=== PATIENT | female | born 1945 | race Caucasian/White ===

== ENCOUNTER 2020-05-26 15:11 | Outpatient (REF) | payer MEDICARE, SELFPAY ==
[2020-05-26 16:41] LABS: Hematocrit 41.1 % (37-47); Hemoglobin 13.6 g/dl (12.0-16.0); Mean Corpuscular HGB Conc 33.1 g/dl (31.0-35.0); Mean Corpuscular Hemoglobin 31.6 pg (27.0-33.0); Mean Corpuscular Volume 95.6 fL (80-98); Mean Platelet Volume 9.5 fL (9.4-12.3); Platelet Count 288 X10*3/uL (160-400); Red Cell Distribution Width 12.5 % (11.0-16.0); White Blood Count 7.5 X10*3/uL (4.8-10.8)
[2020-05-26 17:13] LABS: Alanine Aminotransferase 16 U/L (0-31); Albumin Level 4.2 g/dL (3.5-5.0); Alkaline Phosphatase 52 U/L (39-117); Anion Gap 12 (12-20); Aspartate Amino Transferase 27 U/L (5-31); Bilirubin Total 0.6 mg/dL (0.0-1.0); Blood Urea Nitrogen 16 mg/dL (9-16); Calcium 9.3 mg/dL (8.4-10.2); Carbon Dioxide 30 mmol/L (22-29); Chloride 98 mmol/L (96-108); Estimated Glomerular Filt Rate 48; Glucose Random 95 mg/dL (60-115); Potassium 4.1 mmol/l (3.3-5.1); Sodium 136 mmol/L (135-145); Total Protein 7.1 g/dL (6.5-8.0)
[2020-05-26 17:32] LABS: Thyroid Stimulating Hormone 3.22 mIU/mL (0.32-4.0)
== END 2020-05-26 15:12 | disposition home or self-care (01) ==
LOC: HO.HMGCLDS 15:11
PROVIDERS: PCP Internal Medicine; Visit Provider Internal Medicine
DX: E78.5 Hyperlipidemia, unspecified (principal); I10 Essential (primary) hypertension; J44.9 Chronic obstructive pulmonary disease, unspecified; M81.0 Age-related osteoporosis without current pathological fracture
CPT/HCPCS: 36415; 80053; 84443; 85027

== ENCOUNTER 2020-07-07 11:07 | Outpatient (REF) | payer MEDICARE, SELFPAY ==
--- NOTE | 2020-07-07 | XR_ITS ---
EXAMINATION: XR CHEST CLINICAL INFORMATION: COPD, cough, possible pneumonia COMPARISON: Chest radiographs 03/12/2019 TECHNIQUE: 2 views of the chest were obtained. FINDINGS: There is no airspace consolidation or focal groundglass opacity. The costophrenic sulci are clear. There is no effusion. The heart is normal in size. There is unipolar pacemaker similar to prior study 2019. The hilar and mediastinal contours and bony structures are stable. XR/XR chest 2V IMPRESSION: Unremarkable examination.
== END 2020-07-07 11:08 | disposition home or self-care (01) ==
LOC: HO.HMGCX 11:07
PROVIDERS: PCP Internal Medicine; Visit Provider Pediatrics
DX: J44.9 Chronic obstructive pulmonary disease, unspecified (principal); R05 Cough
CPT/HCPCS: 71046

== ENCOUNTER 2020-11-19 | Outpatient (REF) | payer MEDICARE, SELFPAY | END 2020-11-19 00:01 | disposition home or self-care (01) | LOC: HO.LNP | PROVIDERS: Visit Provider Hospitalist | DX: R30.0 Dysuria (principal) | CPT/HCPCS: 87086 ==

== ENCOUNTER 2020-12-30 06:56 | Outpatient (REF) | payer MEDICARE, SELFPAY ==
[2020-12-30 12:17] LABS: Alanine Aminotransferase 19 U/L (0-31); Alkaline Phosphatase 43 U/L (39-117); Anion Gap 13 (12-20); Aspartate Amino Transferase 30 U/L (5-31); Bilirubin Total 0.5 mg/dL (0.0-1.0); Blood Urea Nitrogen 11 mg/dL (9-16); Carbon Dioxide 26 mmol/L (22-29); Chloride 105 mmol/L (96-108); Cholesterol 181 mg/dL; Estimated Glomerular Filt Rate > 60; Glucose Fasting 83 mg/dL (60-99); HDL Cholesterol 69 mg/dL; LDL Cholesterol Calculated 97 mg/dl; Potassium 3.7 mmol/L (3.3-5.1); Sodium 140 mmol/L (135-145); Total Protein 6.8 g/dL (6.5-8.0); Triglycerides 76 mg/dL
== END 2020-12-30 06:57 | disposition home or self-care (01) ==
LOC: HO.HMGCLDS 06:56
PROVIDERS: PCP Internal Medicine; Visit Provider Internal Medicine
DX: I11.0 Hypertensive heart disease with heart failure (principal); I50.9 Heart failure, unspecified; E78.5 Hyperlipidemia, unspecified
CPT/HCPCS: 36415; 80053; 80061

== ENCOUNTER 2021-01-06 11:07 | Outpatient (REF) | payer MEDICARE, SELFPAY | END 2021-01-06 11:08 | disposition home or self-care (01) | LOC: HO.LAB 11:07 | PROVIDERS: Visit Provider Nurse Practitioner Family | DX: N39.0 Urinary tract infection, site not specified (principal); R31.9 Hematuria, unspecified | CPT/HCPCS: 87086; 87088; 87186 ==

== ENCOUNTER 2021-01-19 12:32 | Outpatient (REF) | payer MEDICARE, SELFPAY ==
[2021-01-19 14:46] LABS: Vitamin D 25-OH Total 75.9 ng/mL (>30)
== END 2021-01-19 12:33 | disposition home or self-care (01) ==
LOC: HO.HMGCLDS 12:32
PROVIDERS: PCP Internal Medicine; Visit Provider Internal Medicine
DX: M81.0 Age-related osteoporosis without current pathological fracture (principal)
CPT/HCPCS: 36415; 82306

== ENCOUNTER 2021-07-29 06:31 | Outpatient (REF) | payer MEDICARE, SELFPAY ==
[2021-07-29 11:25] LABS: Hematocrit 38.8 % (37.0-47.0); Hemoglobin 12.8 g/dl (12.0-16.0); Mean Corpuscular Hemoglobin 32.1 pg (27.0-33.0); Mean Corpuscular Volume 97.2 fL (80.0-98.0); Platelet Count 249 X10*3/uL (160-400); Red Blood Count 3.99 X10*6/uL (4.20-5.50); Red Cell Distribution Width 13.1 % (11.0-16.0); White Blood Count 5.9 X10*3/uL (4.8-10.8)
[2021-07-29 12:04] LABS: Vitamin D 25-OH Total 61.9 ng/mL (>30)
[2021-07-29 12:09] LABS: Alanine Aminotransferase 18 U/L (0-31); Albumin Level 3.7 g/dL (3.5-5.0); Alkaline Phosphatase 50 U/L (39-117); Anion Gap 11 (12-20); Aspartate Amino Transferase 23 U/L (5-31); Bilirubin Total 0.5 mg/dL (0.0-1.0); Blood Urea Nitrogen 19 mg/dL (9-16); Calcium 8.9 mg/dL (8.4-10.2); Carbon Dioxide 27 mmol/L (22-29); Chloride 105 mmol/L (96-108); Cholesterol 188 mg/dL; Estimated Glomerular Filt Rate 44; Glucose Fasting 86 mg/dL (60-99); HDL Cholesterol 73 mg/dL; LDL Cholesterol Calculated 103 mg/dl; Potassium 4.1 mmol/L (3.3-5.1); Sodium 139 mmol/L (135-145); Total Protein 6.6 g/dL (6.5-8.0); Triglycerides 60 mg/dL
== END 2021-07-29 06:32 | disposition home or self-care (01) ==
LOC: HO.HMGCLDS 06:31
PROVIDERS: PCP Internal Medicine; Visit Provider Internal Medicine
DX: E78.5 Hyperlipidemia, unspecified (principal); I11.0 Hypertensive heart disease with heart failure; I50.9 Heart failure, unspecified; J44.9 Chronic obstructive pulmonary disease, unspecified; M81.0 Age-related osteoporosis without current pathological fracture
CPT/HCPCS: 36415; 80053; 80061; 82306; 85027

== ENCOUNTER 2021-08-02 06:45 | Outpatient (REF) | payer MEDICARE, SELFPAY ==
[2021-08-02 12:08] LABS: Appearance Urine HAZY; Color Urine YELLOW; Glucose Urine UA NEG (NEG); Leukocyte Esterase Urine 3+ (NEG); Nitrite Urine NEG (NEG); UACC Culture Trigger YES; Urine Blood NEG (NEG); Urine Ketones NEG (NEG); Urine Protein NEG (NEG-TRACE)
[2021-08-02 12:29] LABS: WBC Urine 30-49 /HPF (0-4)
[2021-08-02 12:30] LABS: Bacteria Urine 1+ /LPF; Mucus Urine 2+ /LPF; RBC Urine 0 /HPF (0); Squamous Epithelial Cell Urine 1+ /LPF
== END 2021-08-02 06:46 | disposition home or self-care (01) ==
LOC: HO.HMGCLNP 06:45
PROVIDERS: PCP Internal Medicine; Visit Provider Internal Medicine
DX: M81.0 Age-related osteoporosis without current pathological fracture (principal); J44.9 Chronic obstructive pulmonary disease, unspecified; I11.0 Hypertensive heart disease with heart failure; I50.9 Heart failure, unspecified; E78.5 Hyperlipidemia, unspecified
CPT/HCPCS: 81001; 81003; 87086

== ENCOUNTER 2021-08-19 13:26 | Outpatient (REF) | payer MEDICARE, SELFPAY ==
[2021-08-19 16:17] LABS: Anion Gap 12 (12-20); Blood Urea Nitrogen 15 mg/dL (9-16); Calcium 9.2 mg/dL (8.4-10.2); Carbon Dioxide 27 mmol/L (22-29); Chloride 101 mmol/L (96-108); Estimated Glomerular Filt Rate 60; Glucose Random 94 mg/dL (60-115); Potassium 3.7 mmol/L (3.3-5.1); Sodium 136 mmol/L (135-145)
== END 2021-08-19 13:27 | disposition home or self-care (01) ==
LOC: HO.HMGCLDS 13:26
PROVIDERS: PCP Internal Medicine; Visit Provider Internal Medicine
DX: I50.9 Heart failure, unspecified (principal)
CPT/HCPCS: 36415; 80048

== ENCOUNTER 2021-11-10 11:38 | Outpatient (REF) | payer MEDICARE, SELFPAY ==
[2021-11-10 13:58] LABS: Appearance Urine CLEAR; Color Urine YELLOW; Glucose Urine UA NEG (NEG); Leukocyte Esterase Urine 3+ (NEG); Nitrite Urine NEG (NEG); PH 7.5 (5.0-8.0); UACC Culture Trigger YES; Urine Blood NEG (NEG); Urine Ketones NEG (NEG); Urine Protein NEG (NEG-TRACE)
[2021-11-10 14:19] LABS: Bacteria Urine TRACE /LPF; RBC Urine 0-2 /HPF (0); Renal Epithelial Cells Urine 1+ /LPF; Squamous Epithelial Cell Urine 1+ /LPF
== END 2021-11-10 11:39 | disposition home or self-care (01) ==
LOC: HO.HMGCLNP 11:38
PROVIDERS: PCP Internal Medicine; Visit Provider Internal Medicine
DX: I10 Essential (primary) hypertension (principal); M81.0 Age-related osteoporosis without current pathological fracture; J44.9 Chronic obstructive pulmonary disease, unspecified; I50.9 Heart failure, unspecified; E78.5 Hyperlipidemia, unspecified
CPT/HCPCS: 81001; 87086

== ENCOUNTER 2021-11-12 09:49 | Outpatient (REF) | payer MEDICARE, SELFPAY ==
[2021-11-12 12:16] LABS: Anion Gap 9 (12-20); Blood Urea Nitrogen 11 mg/dL (9-16); Calcium 9.3 mg/dL (8.4-10.2); Carbon Dioxide 28 mmol/L (22-29); Chloride 98 mmol/L (96-108); Estimated Glomerular Filt Rate > 60; Glucose Random 81 mg/dL (60-115); Sodium 131 mmol/L (135-145)
== END 2021-11-12 09:50 | disposition home or self-care (01) ==
LOC: HO.HMGCLDS 09:49
PROVIDERS: Visit Provider Internal Medicine
DX: I50.9 Heart failure, unspecified (principal)
CPT/HCPCS: 36415; 80048

== ENCOUNTER 2021-12-02 10:29 | Outpatient (REF) | payer MEDICARE, SELFPAY ==
[2021-12-02 11:57] LABS: Anion Gap 14 (12-20); Blood Urea Nitrogen 16 mg/dL (9-16); Calcium 9.6 mg/dL (8.4-10.2); Carbon Dioxide 26 mmol/L (22-29); Chloride 101 mmol/L (96-108); Estimated Glomerular Filt Rate > 60; Glucose Random 98 mg/dL (60-115); Potassium 4.1 mmol/L (3.3-5.1); Sodium 137 mmol/L (135-145)
[2021-12-02 14:01] LABS: Appearance Urine CLEAR; Color Urine YELLOW; Glucose Urine UA NEG (NEG); Leukocyte Esterase Urine 2+ (NEG); Nitrite Urine NEG (NEG); Specific Gravity - Urine 1.015 (1.005-1.025); UACC Culture Trigger YES; Urine Blood TRACE (NEG); Urine Ketones NEG (NEG); Urine Protein TRACE MG/DL (NEG-TRACE)
[2021-12-02 15:17] LABS: Squamous Epithelial Cell Urine 2+ /LPF
[2021-12-02 15:18] LABS: Bacteria Urine 1+ /LPF
[2021-12-02 15:19] LABS: RBC Urine 0 /HPF (0)
== END 2021-12-02 10:30 | disposition home or self-care (01) ==
LOC: HO.HMGCLDS 10:29
PROVIDERS: PCP Internal Medicine; Visit Provider Internal Medicine
DX: E87.1 Hypo-osmolality and hyponatremia (principal)
CPT/HCPCS: 36415; 80048; 81001; 81003; 87086

== ENCOUNTER 2022-01-18 08:29 | Outpatient (REF) | payer MEDICARE, SELFPAY ==
[2022-01-18 11:40] LABS: Appearance Urine HAZY; Color Urine YELLOW; Glucose Urine UA NEG (NEG); Leukocyte Esterase Urine 3+ (NEG); Nitrite Urine NEG (NEG); PH 6.5 (5.0-8.0); Specific Gravity - Urine 1.015 (1.005-1.025); UACC Culture Trigger YES; Urine Blood NEG (NEG); Urine Ketones NEG (NEG); Urine Protein NEG (NEG-TRACE)
[2022-01-18 12:06] LABS: Hematocrit 38.6 % (37.0-47.0); Hemoglobin 12.3 g/dl (12.0-16.0); Mean Corpuscular HGB Conc 31.9 g/dl (31.0-35.0); Mean Corpuscular Hemoglobin 31.1 pg (27.0-33.0); Mean Corpuscular Volume 97.5 fL (80.0-98.0); Platelet Count 227 X10*3/uL (160-400); Red Blood Count 3.96 X10*6/uL (4.20-5.50); Red Cell Distribution Width 13.5 % (11.0-16.0); White Blood Count 6.4 X10*3/uL (4.8-10.8)
[2022-01-18 12:19] LABS: Alanine Aminotransferase 15 U/L (0-31); Alkaline Phosphatase 49 U/L (39-117); Anion Gap 10 (12-20); Aspartate Amino Transferase 22 U/L (5-31); Bilirubin Total 0.7 mg/dL (0.0-1.0); Blood Urea Nitrogen 16 mg/dL (9-16); Calcium 9.1 mg/dL (8.4-10.2); Carbon Dioxide 27 mmol/L (22-29); Chloride 106 mmol/L (96-108); Cholesterol 187 mg/dL; Estimated Glomerular Filt Rate 57; Glucose Fasting 93 mg/dL (60-99); HDL Cholesterol 68 mg/dL; LDL Cholesterol Calculated 105 mg/dl; Potassium 3.7 mmol/L (3.3-5.1); Sodium 139 mmol/L (135-145); Total Protein 6.8 g/dL (6.5-8.0); Triglycerides 73 mg/dL
[2022-01-18 12:21] LABS: Bacteria Urine 1+ /LPF; RBC Urine 0 /HPF (0); Squamous Epithelial Cell Urine 1+ /LPF
[2022-01-18 12:26] LABS: TSH reflex Free T4 3.86 uIU/mL (0.32-4.0)
== END 2022-01-18 08:30 | disposition home or self-care (01) ==
LOC: HO.HMGCLDS 08:29
PROVIDERS: PCP Internal Medicine; Visit Provider Internal Medicine
DX: E78.5 Hyperlipidemia, unspecified (principal); I11.0 Hypertensive heart disease with heart failure; I50.9 Heart failure, unspecified
CPT/HCPCS: 36415; 80053; 80061; 81001; 84443; 85027; 87086

== ENCOUNTER 2022-05-24 08:37 | Outpatient (REF) | payer MEDICARE, SELFPAY ==
[2022-05-24 11:42] LABS: Appearance Urine Clear; Color Urine Yellow; Glucose Urine UA Negative (Negative); Leukocyte Esterase Urine Small (1+) (Negative); Nitrite Urine Negative (Negative); UMIC TRIGGER UACC YES; Urine Blood Negative (Negative); Urine Ketones Negative (Negative); Urine Protein Negative (Neg-Trace)
[2022-05-24 12:02] LABS: Bacteria Urine None Seen (None Seen); Hyaline Casts Urine 0-2 /LPF (0-2); RBC Urine 0-2 /HPF (0-2); Squamous Epithelial Cell Urine 0-2 /HPF (0-2); UACC Culture Trigger YES; WBC Urine 0-5 /HPF (0-5)
[2022-05-24 12:21] LABS: Anion Gap 15 (12-20); Blood Urea Nitrogen 17 mg/dL (9-16); Calcium 9.1 mg/dL (8.4-10.2); Carbon Dioxide 26 mmol/L (22-29); Chloride 103 mmol/L (96-108); Estimated Glomerular Filt Rate > 60; Glucose Random 84 mg/dL (60-115); Potassium 3.8 mmol/L (3.3-5.1); Sodium 140 mmol/L (135-145)
== END 2022-05-24 08:38 | disposition home or self-care (01) ==
LOC: HO.HMGCLDS 08:37
PROVIDERS: PCP Internal Medicine; Visit Provider Internal Medicine
DX: I11.0 Hypertensive heart disease with heart failure (principal); I50.9 Heart failure, unspecified
CPT/HCPCS: 36415; 80048; 81001; 87086

== ENCOUNTER 2022-07-16 10:58 | Inpatient (IN) | payer MEDICARE, SELFPAY ==
[2022-07-16] VITALS (7 sets, daily range): BP systolic 118–141; BP diastolic 73–91; PULSE 93–109; RESP 16–30; TEMP 36.4–37.7; O2SAT 94–98; BMI 28.3
--- NOTE | 2022-07-16 11:06 | ECG_ITS ---
Test Reason : SOB Blood Pressure : / mmHG Vent. Rate : 106 BPM Atrial Rate : 106 BPM P-R Int : 240 ms QRS Dur : 142 ms QT Int : 378 ms P-R-T Axes : 000 -35 -21 degrees QTc Int : 502 ms Sinus tachycardia with 1st degree A-V block Left axis deviation Right bundle branch block T wave abnormality, consider lateral ischemia Abnormal ECG No previous ECGs available Referred By: Generic ED Physician Electronically Signed By:Sunil Coto
--- NOTE | 2022-07-16 11:16 | ED.SOB ---
HPI - SOB/Dyspnea General Chief Complaint: Dyspnea Stated Complaint: DIFF BREATHING Time Seen by Provider: 07/16/22 11:11 Source: patient Mode of arrival: ambulatory Limitations: no limitations History of Present Illness HPI Narrative: This is a 77-year-old female past medical history significant for CHF, COPD, hypertension, hyperlipidemia presenting to the emergency department with progressively worsening shortness of breath , productive cough for over a month, particularly bad over the past few days. Patient tells me she wears about 1-2 L of oxygen at home at baseline however has been having to increase her oxygen at home due to shortness of breath. Tells me shortness of breath is worse with exertion better at rest. Patient has been to urgent care multiple times and has been prescribed multiple rounds of steroids, and antibiotics including azithromycin and amoxicillin. Patient tells me she has noted little to no relief with taking these antibiotics. no known sick contacts. Patient denies fevers, chills, chest pain, nausea, vomiting, abdominal pain, headache, vision changes, dizziness, weakness. Related Data Home Medications Medication Instructions Recorded Confirmed cetirizine 10 mg tablet 1 tab PO DAILY 07/16/22 Previous Rx's Medication Instructions Recorded albuterol sulfate 90 mcg/actuation 2 puff inhalation QID #8.5 grams 01/19/21 aerosol inhaler furosemide 40 mg tablet 60 mg PO DAILY #135 tabs 01/07/22 fluticasone 250 mcg-salmeterol 50 1 ea PO Q12H #180 ea 05/26/22 mcg/dose blistr powdr for inhalation lisinopril 40 mg tablet 40 mg PO DAILY #90 tabs 05/26/22 pravastatin 20 mg tablet 20 mg PO DAILY #90 tabs 05/26/22 ipratropium 0.5 mg-albuterol 3 mg 1.5 ml inhalation Q6H #180 mL 06/22/22 (2.5 mg base)/3 mL nebulization soln Allergies Allergy/AdvReac Type Severity Reaction Status Date / Time gemifloxacin Allergy Unknown Rash Verified 07/15/22 13:01 montelukast [Singulair] Allergy Unknown mood swings Verified 07/15/22 13:01 prednisone Allergy Unknown sob Verified 07/15/22 13:01 Review of Systems Review of Systems: Constitutional : No Weight loss, No Fever, No Chills, No Fatigue, No Malaise ENT/Mouth : No sore throat, No Rhinorrhea Eyes: No Eye Pain, No Swelling, No Redness Cardiovascular : No Chest Pain, + SOB, No Dyspnea on Exertion, No Orthopnea, No Edema, No Palpitations Respiratory : No Cough, No Sputum, No Wheezing Gastrointestinal : No Nausea, No Vomiting, No Diarrhea, No Constipation, No abdominal Pain, No Hematochezia, No Melena Genitourinary : No Dysuria, No Urinary Frequency, No Hematuria, Musculoskeletal : No joint pain, No Myalgias, No Joint Swelling Skin : No Skin Lesions, No rash Neuro : No Weakness, No Numbness, No Dizziness, No Headache Psych : No Anxiety/Panic, No Depression Heme/Lymph: No Bruising, No Bleeding,No Lymphadenopathy Endocrine : No Polyuria, No Polydipsia All other systems reviewed and are negative Yes all other systems are reviewed and are negative [facility] Past Medical History Attestation statement: The following information was validated with the patient. Source: old records reviewed and nursing notes reviewed Medical History CHF (congestive heart failure) COPD (chronic obstructive pulmonary disease) HTN (hypertension) Hyperlipemia Hyponatremia Meniere disease Osteoporosis Sleep apnea SSS (sick sinus syndrome) Family History Family History Father Lung cancer Mother COPD (chronic obstructive pulmonary disease) Social History Social History Housing: House Alcohol intake: never Patient Tobacco Use Status: Former Tobacco user e-Cigarette/Vaping Use: Never Used Second Hand Smoke Exposure: Yes Advance Directives: No Advance Directives Information Provided: Yes service: No Current occupational status: retired Cognitive needs: No Hearing needs: Yes Vision needs: Yes Physical Exam Vital Signs: Vital Signs: Last Vital Signs Temp 99.8 F 07/16/22 13:04 Pulse 109 H 07/16/22 10:59 Resp 18 07/16/22 10:59 BP 141/81 H 07/16/22 10:59 Pulse Ox 94 07/16/22 10:59 O2 Del Method 07/16/22 10:59 Oxygen Flow Rate 3 07/16/22 10:59 BMI result Body Mass Index 28.3 vss Appearance: Alert.? Oriented X3.? Moderate acute distress.? Head: Normocephalic, atraumatic, no step-offs or deformities Eyes: Pupils equal, round and reactive to light.? ENT: Pharynx normal.? Neck: Normal inspection.? Neck supple.? CVS: Normal heart rate and rhythm.? Pulses normal.? Respiratory: Moderate respiratory distress.? Breath sounds diminished bilaterally with expiratory wheezing and rales in bilateral lower lobes..? Abdomen: Soft and nontender. Skin: Skin warm and dry.? Normal skin color.? Normal skin turgor.? Extremities: No lower extremity edema.? No calf ttp. 5/5 strength to bilateral upper and lower extremities Neuro: Oriented X 3.? No motor deficit.? No sensory deficit. CN 2-12 intact Course Course Course Narrative: this patient was evaluated and seen by my attending as well. Reevaluation(s) Reevaluation #1: patient's CBC appears to be around patient's baseline however noted to have a neutrophil predominance. Chemistry with a slightly low sodium 132, no symptoms of hyponatremia on exam. Patient is noted to have a lactic acidosis. Patient is also noted to have a strikingly elevated troponin 3600. Her EKG is not showing any acute signs of ischemia. Patient does not report any chest pain her main complaint is shortness of breath. Patient is also noted to have a BNP of 2908, patient with soft pressure will give 40 of IV Lasix and then repeat another 40 at a later time when patient's pressure is appropriate. will obtain CTA to rule out PE. Due to strikingly elevated troponin will obtain viral panel to ensure that this is not a myocarditis. TT to Dr. Coto Time: 12:42 Reevaluation #2: Patient noted to be positive for influenza. Not candidate for Tamiflu as symptoms have been prolonged for greater than 48 hours. CTA with no PE. Patient will be admitted to the hospital for further intervention and treatment. Time: 13:45 Medications Administered Discontinued Medications Generic Name Dose Route Start Last Admin Trade Name Freq PRN Reason Stop Dose Admin Furosemide 40 mg 07/16/22 12:23 07/16/22 13:11 Furosemide 40 Mg/4 Ml Vial IVPUSH 07/16/22 12:24 40 mg ONCE ONE Administration Protocol Heparin Sodium (Porcine) 4,000 unit 07/16/22 12:50 07/16/22 13:15 Heparin Sodium,Porcine 5,000 Unit/Ml Vial 60 unit/kg (4000 unit) 07/16/22 12:51 4,000 unit IVPUSH Administration ONCE ONE Magnesium Sulfate 2 gm in 50 mls @ 25 mls/hr 07/16/22 11:18 07/16/22 11:48 Magnesium Sulfate/H2o IV 07/16/22 13:17 25 mls/hr ONCE ONE Administration Ceftriaxone Sodium 1 gm/ 50 mls @ 100 mls/hr 07/16/22 12:17 07/16/22 13:17 Sodium Chloride IV 07/16/22 12:46 100 mls/hr ONCE ONE Infusion Iohexol 100 ml 07/16/22 13:12 07/16/22 13:12 Iohexol 350 Mg/Ml 100 Ml Infus..Btl IV 07/16/22 13:13 65 ml ONCE ONE Administration Methylprednisolone Sodium Succinate 125 mg 07/16/22 11:18 07/16/22 11:48 Methylprednisolone Sod Succ 125 Mg/2 Ml Vial IVPUSH 07/16/22 11:19 125 mg ONCE ONE Administration Medical Decision Making Medical Decision Making [facility] Narrative: 1115 77-year-old female presents with complaints of shortness of breath for a little bit over a month worsening over the past few days. History of COPD on home oxygen however increased oxygen demands. Physical examination with patient in moderate respiratory distress. Moderate respiratory distress.? Breath sounds diminished bilaterally with expiratory wheezing and rales in bilateral lower lobes. Concerns for possible CHF, COPD. No chest pain therefore low suspicion for ACS. Plan at this time is to obtain basic labs, blood cultures, lactic, flu/ COVID / RSV, D-dimer. Will give magnesium and Solu-Medrol as patient does have significant wheezing and there are diminished breath sounds bilaterally. Lab Data Result Diagrams: 07/16/22 11:58 07/16/22 11:40 Labs: Lab Results 07/16/22 07/16/22 07/16/22 Range/Units 11:40 11:40 11:40 WBC (4.8-10.8) X10*3/uL RBC (4.20-5.50) X10*6/uL Hgb (12.0-16.0) g/dl Hct (37.0-47.0) % MCV (80.0-98.0) fL MCH (27.0-33.0) pg MCHC (31.0-35.0) g/dl RDW (11.0-16.0) % Plt Count (160-400) X10*3/uL MPV (9.4-12.3) fL Immature Gran % (Auto) (0.0-0.4) % Neut % (Auto) (45-73) % Lymph % (Auto) (20-40) % [place] % (Auto) (2-11) % Eos % (Auto) (0-4) % Baso % (Auto) (0-2) % Lymph # (Auto) (1.2-4.9) X10*3/uL [place] # (Auto) (0.1-1.2) X10*3/uL Eos # (Auto) (0.0-0.4) X10*3/uL Baso # (Auto) (0.0-0.2) X10*3/uL Abs Immat Gran (auto) (0.00-0.03) X10*3/uL Absolute Neuts (auto) (2.0-8.3) x10*3/uL Absolute Nucleated RBC (0.0-0.012) X10*3/uL Nucleated RBC % (auto) (0.0-0.2) /100WBC Smear Tech's Comments PT (10.0-13.1) SEC INR (0.9-1.1) APTT (26.0-36.4) SEC D-Dimer High Sensitivty NG/ML VBG pH (7.32-7.43) VBG pCO2 mmHg VBG pO2 mmHg VBG HCO3 (22-26) mmol/L VBG O2 Saturation % VBG Base Excess mmol/L Sodium 132 L (135-145) mmol/L Potassium 4.1 (3.3-5.1) mmol/L Chloride 99 (96-108) mmol/L Carbon Dioxide 21 L (22-29) mmol/L Anion Gap 16 (12-20) BUN 16 (9-16) mg/dL Creatinine 0.96 (0.5-1.4) mg/dL Estim Creat Clear Calc 40.9 Estimated GFR 56 Random Glucose 143 H (60-115) mg/dL Lactic Acid (0.5-2.0) mmol/L Calcium 9.0 (8.4-10.2) mg/dL Total Bilirubin 0.7 (0.0-1.0) mg/dL AST 57 H (5-31) U/L ALT 22 (0-31) U/L Alkaline Phosphatase 47 (39-117) U/L Total Creatine Kinase 979 H (26-140) U/L Troponin I High Sens > 3600.0 H* (<3.5-17.0) ng/L B-Natriuretic Peptide (<100) pg/mL Total Protein 6.9 (6.5-8.0) g/dL Albumin 4.2 (3.5-5.0) g/dL Influenza Type A (PCR) POSITIVE A (Negative) Influenza Type B (PCR) NEGATIVE (Negative) RSV RNA Qual (PCR) NEGATIVE (Negative) SARS-CoV-2 RNA (RT-PCR) NEGATIVE (Negative) 07/16/22 07/16/22 07/16/22 Range/Units 11:40 11:40 11:40 WBC (4.8-10.8) X10*3/uL RBC (4.20-5.50) X10*6/uL Hgb (12.0-16.0) g/dl Hct (37.0-47.0) % MCV (80.0-98.0) fL MCH (27.0-33.0) pg MCHC (31.0-35.0) g/dl RDW (11.0-16.0) % Plt Count (160-400) X10*3/uL MPV (9.4-12.3) fL Immature Gran % (Auto) (0.0-0.4) % Neut % (Auto) (45-73) % Lymph % (Auto) (20-40) % [place] % (Auto) (2-11) % Eos % (Auto) (0-4) % Baso % (Auto) (0-2) % Lymph # (Auto) (1.2-4.9) X10*3/uL [place] # (Auto) (0.1-1.2) X10*3/uL Eos # (Auto) (0.0-0.4) X10*3/uL Baso # (Auto) (0.0-0.2) X10*3/uL Abs Immat Gran (auto) (0.00-0.03) X10*3/uL Absolute Neuts (auto) (2.0-8.3) x10*3/uL Absolute Nucleated RBC (0.0-0.012) X10*3/uL Nucleated RBC % (auto) (0.0-0.2) /100WBC Smear Tech's Comments PT (10.0-13.1) SEC INR (0.9-1.1) APTT (26.0-36.4) SEC D-Dimer High Sensitivty 320 NG/ML VBG pH (7.32-7.43) VBG pCO2 mmHg VBG pO2 mmHg VBG HCO3 (22-26) mmol/L VBG O2 Saturation % VBG Base Excess mmol/L Sodium (135-145) mmol/L Potassium (3.3-5.1) mmol/L Chloride (96-108) mmol/L Carbon Dioxide (22-29) mmol/L Anion Gap (12-20) BUN (9-16) mg/dL Creatinine (0.5-1.4) mg/dL Estim Creat Clear Calc Estimated GFR Random Glucose (60-115) mg/dL Lactic Acid 2.6 H* (0.5-2.0) mmol/L Calcium (8.4-10.2) mg/dL Total Bilirubin (0.0-1.0) mg/dL AST (5-31) U/L ALT (0-31) U/L Alkaline Phosphatase (39-117) U/L Total Creatine Kinase (26-140) U/L Troponin I High Sens (<3.5-17.0) ng/L B-Natriuretic Peptide 2908 H (<100) pg/mL Total Protein (6.5-8.0) g/dL Albumin (3.5-5.0) g/dL Influenza Type A (PCR) (Negative) Influenza Type B (PCR) (Negative) RSV RNA Qual (PCR) (Negative) SARS-CoV-2 RNA (RT-PCR) (Negative) 07/16/22 07/16/22 07/16/22 Range/Units 11:40 11:58 12:53 WBC 7.7 (4.8-10.8) X10*3/uL RBC 3.97 L (4.20-5.50) X10*6/uL Hgb 12.9 (12.0-16.0) g/dl Hct 37.7 (37.0-47.0) % MCV 95.0 (80.0-98.0) fL MCH 32.5 (27.0-33.0) pg MCHC 34.2 (31.0-35.0) g/dl RDW 13.4 (11.0-16.0) % Plt Count 201 (160-400) X10*3/uL MPV 9.5 (9.4-12.3) fL Immature Gran % (Auto) 0.1 (0.0-0.4) % Neut % (Auto) 92.5 H (45-73) % Lymph % (Auto) 4.7 L (20-40) % [place] % (Auto) 2.5 (2-11) % Eos % (Auto) 0.1 (0-4) % Baso % (Auto) 0.1 (0-2) % Lymph # (Auto) 0.4 L (1.2-4.9) X10*3/uL [place] # (Auto) 0.2 (0.1-1.2) X10*3/uL Eos # (Auto) 0.0 (0.0-0.4) X10*3/uL Baso # (Auto) 0.0 (0.0-0.2) X10*3/uL Abs Immat Gran (auto) 0.01 (0.00-0.03) X10*3/uL Absolute Neuts (auto) 7.2 (2.0-8.3) x10*3/uL Absolute Nucleated RBC 0.000 (0.0-0.012) X10*3/uL Nucleated RBC % (auto) 0.0 (0.0-0.2) /100WBC Smear Tech's Comments VERIFIED PT 11.3 (10.0-13.1) SEC INR 1.0 (0.9-1.1) APTT 30.8 (26.0-36.4) SEC D-Dimer High Sensitivty NG/ML VBG pH 7.43 (7.32-7.43) VBG pCO2 30 mmHg VBG pO2 46 mmHg VBG HCO3 20 L (22-26) mmol/L VBG O2 Saturation 74.0 % VBG Base Excess -2.1 mmol/L Sodium (135-145) mmol/L Potassium (3.3-5.1) mmol/L Chloride (96-108) mmol/L Carbon Dioxide (22-29) mmol/L Anion Gap (12-20) BUN (9-16) mg/dL Creatinine (0.5-1.4) mg/dL Estim Creat Clear Calc Estimated GFR Random Glucose (60-115) mg/dL Lactic Acid (0.5-2.0) mmol/L Calcium (8.4-10.2) mg/dL Total Bilirubin (0.0-1.0) mg/dL AST (5-31) U/L ALT (0-31) U/L Alkaline Phosphatase (39-117) U/L Total Creatine Kinase (26-140) U/L Troponin I High Sens (<3.5-17.0) ng/L B-Natriuretic Peptide (<100) pg/mL Total Protein (6.5-8.0) g/dL Albumin (3.5-5.0) g/dL Influenza Type A (PCR) (Negative) Influenza Type B (PCR) (Negative) RSV RNA Qual (PCR) (Negative) SARS-CoV-2 RNA (RT-PCR) (Negative) Critical Care Time Critical Care Time Critical Care Time: Yes Total Critical Care Time: 45 Attestation: I attest to this time spent taking care of the patient, obtaining history, physical, reviewing labs, imaging, speaking to my attending, speaking to specialist. Discharge Plan Discharge Clinical Impression: CHF (congestive heart failure), Pneumonia, Elevated troponin, Rhabdomyolysis, Influenza A Patient Disposition: Admitted As Inpatient
--- NOTE | 2022-07-16 11:56 | PC.NURSE ---
#20 IV placed in right AC without any problem. 2nd attempt
[2022-07-16 11:58] LABS: D Dimer High Sensitivity 320 NG/ML
[2022-07-16 12:04] LABS: Basophils Percent Auto 0.1 % (0-2); Eosinophils Percent Auto 0.1 % (0-4); Hematocrit 37.7 % (37.0-47.0); Hemoglobin 12.9 g/dl (12.0-16.0); Imm Gran Abs Auto 0.01 X10*3/uL (0.00-0.03); Imm Gran Pct Auto 0.1 % (0.0-0.4); Lymphocytes Absolute Auto 0.4 X10*3/uL (1.2-4.9); Lymphocytes Percent Auto 4.7 % (20-40); MANUAL DIFF FLAG SCAN; Mean Corpuscular HGB Conc 34.2 g/dl (31.0-35.0); Mean Corpuscular Hemoglobin 32.5 pg (27.0-33.0); Mean Platelet Volume 9.5 fL (9.4-12.3); Monocytes Absolute Auto 0.2 X10*3/uL (0.1-1.2); Monocytes Percent Auto 2.5 % (2-11); Neutrophils Absolute Auto 7.2 x10*3/uL (2.0-8.3); Neutrophils Percent Auto 92.5 % (45-73); Platelet Count 201 X10*3/uL (160-400); Red Blood Count 3.97 X10*6/uL (4.20-5.50); Red Cell Distribution Width 13.4 % (11.0-16.0); SCAN SMEAR FLAG 1; White Blood Count 7.7 X10*3/uL (4.8-10.8)
[2022-07-16 12:11] LABS: Lactic Acid 2.6 mmol/L (0.5-2.0)
[2022-07-16 12:16] LABS: B Type Natriuretic Peptide 2908 pg/mL (<100)
[2022-07-16 12:19] LABS: Alanine Aminotransferase 22 U/L (0-31); Albumin Level 4.2 g/dL (3.5-5.0); Alkaline Phosphatase 47 U/L (39-117); Anion Gap 16 (12-20); Aspartate Amino Transferase 57 U/L (5-31); Bilirubin Total 0.7 mg/dL (0.0-1.0); Blood Urea Nitrogen 16 mg/dL (9-16); Carbon Dioxide 21 mmol/L (22-29); Chloride 99 mmol/L (96-108); Creatinine Clr Calc Pharmacy 40.9; Estimated Glomerular Filt Rate 56; Glucose Random 143 mg/dL (60-115); Potassium 4.1 mmol/L (3.3-5.1); Sodium 132 mmol/L (135-145); Total Protein 6.9 g/dL (6.5-8.0)
[2022-07-16 12:22] LABS: SLIDE REVIEW VERIFIED
[2022-07-16 12:23] LABS: Troponin-I High Sensitivity > 3600.0 ng/L (<3.5-17.0)
[2022-07-16 12:28] LABS: Influenza A PCR POSITIVE (Negative); Influenza B PCR NEGATIVE (Negative); Resp Syncy Virus RNA Qual PCR NEGATIVE (Negative); SARS COV2 PCR INHOUSE NEGATIVE (Negative)
[2022-07-16 12:51] LABS: Prothrombin Time 11.3 SEC (10.0-13.1)
[2022-07-16 13:36] LABS: Partial Thromboplastin Time 30.8 SEC (26.0-36.4)
--- NOTE | 2022-07-16 14:08 | PHA.MEDREC ---
Pharmacy Consult ? Medication Reconciliation Pharmacy has completed the medication reconciliation. Patient had a medication list that I reviewed with her and used to help do her medication reconciliation. She just started a zpak yesterday and took the first day of single tablet dosing today. She has 3 more days of that and will finish on 07/19. She takes furosemide 40 mg in the morning (scheduled), 20 mg in the afternoon (scheduled), and 20 mg additional at bedtime (as needed in the event of edema/fluid retention as per her md verbal instructions). States she takes cetirizine at bedtime as it makes her very drowsy.
--- NOTE | 2022-07-16 14:43 | PM.IMHP ---
History of Present Illness Date of Service: 07/16/22 <LASHELL Garcia - Last Filed: 07/16/22 15:35> Attending physician on admission: Summer Montenegro <LASHELL Garcia - Last Filed: 07/16/22 15:35> Chief Complaint: sob, cough <LASHELL Garcia - Last Filed: 07/16/22 15:35> 77 year old female with history HFpEF, pulmonary hypertension, COPD with chronic hypoxic respiratory failure on 1-2 L supplemental O2 at baseline, hypertension, hyperlipidemia, history of Meniere's disease, osteoporosis on Reclast, JEIMY, sick sinus syndrome s/p pacemaker placement, and chronic hyponatremia presented to the ED this morning for evaluation of worsening shortness of breath ongoing for 1 month. States primarily dyspnea on exertion as well as orthopnea/PND. Has been needing 3 L supplemental O2. There has also been cough, nonproductive. Has been prescribed multiple courses steroids PO and antibiotics with short-lived relief of symptoms. Denies sick contacts. No fevers, chills, sore throat, nasal congestion, abd pain, n/v, diarrhea, chest pain. Yesterday was febrile at walk-in at 100.6 but has been afebrile since. Mildly tachycardic at 109 on arrival and tachypneic to 24. 87% oximetry on room air, placed on 3 L via nasal cannula. No leukocytosis. Renal function and electrolyte levels baseline except for mild hyponatremia 132. Lactic acid 2.6, repeat lactic acid. Total CK 979. Troponin > 3600, BNP 2900. Positive for influenza a, negative for COVID-19 and RSV. Chest x-ray showing nonspecific patchy airspace disease at both perihilar and lower lung field possibly representing pneumonia versus pulmonary venous congestion or combination thereof. Subsequent chest CTA negative for PE. There is extensive emphysematous disease with predominant involvement of both upper lobes and presence of moderate cardiomegaly and likely mild pulmonary venous congestion. Patient noted to be in congestive heart failure with elevated cardiac enzymes, started on heparin drip per protocol after discussion with Cardiology. She was also given 1 g ceftriaxone, 125 mg methylprednisolone, 40 mg furosemide, and 2 g magnesium. <LASHELL Garcia - Last Filed: 07/16/22 15:35> Review of Systems Review of Systems: General: No fevers, malaise, unintentional weight loss HEENT: No blurred vision, diplopia. No sore throat, nasal congestion, rhinorrhea, sinus pain, ear pain Cardiovascular: No chest pain, palpitations, or leg edema Respiratory: +ANDRE, +orthopnea, +cough, +wheezing GI: No abdominal pain, nausea, vomiting, diarrhea : No dysuria, hematuria, increased urinary frequency MSK: No myalgia, back pain Neuro: No headaches, weakness, paresthesias Skin: No rashes or lesions <LASHELL Garcia - Last Filed: 07/16/22 15:35> [facility] Medical History: Medical History (Updated 07/16/22 @ 15:33 by LASHELL Garcia) CHF (congestive heart failure) COPD (chronic obstructive pulmonary disease) HTN (hypertension) Hyperlipemia Hyponatremia Meniere disease Osteoporosis Pneumonia Rhabdomyolysis Sleep apnea SSS (sick sinus syndrome) <LASHELL Garcia - Last Filed: 07/16/22 15:35> Family History: Family History Father Lung cancer Mother COPD (chronic obstructive pulmonary disease) <LASHELL Garcia - Last Filed: 07/16/22 15:35> Social History: Social History Household Members: Spouse Housing: House Do you presently have visiting nurse or other home services: No Alcohol intake: never Patient Tobacco Use Status: Former Tobacco user e-Cigarette/Vaping Use: Never Used Second Hand Smoke Exposure: Yes Use of substances other than those prescribed or required for medical reasons: No Currently Displaying Signs/Symptoms of Drug Intoxication Withdrawal: No Have you been hit, kicked, punched, or otherwise hurt by someone within the past year? If so, by whom?: No Do you feel safe in your current relationship?: Yes Is there a partner from a previous relationship who is making you feel unsafe now?: No Are you made to feel afraid or neglected: No Advance Directives: No Advance Directives Information Provided: Yes Do you have thoughts of harming others: None Do you have a plan to hurt others: No Plan Recently lost weight without trying: No Nutrition Risks: No Nutritional Risk Patient : No : No Poor oral hygiene: No service: No Current occupational status: retired Cognitive needs: No Hearing needs: Yes Vision needs: Yes <LASHELL Garcia - Last Filed: 07/16/22 15:35> Meds Allergies/Adverse reactions: Allergies Allergy/AdvReac Type Severity Reaction Status Date / Time gemifloxacin Allergy Unknown Rash Verified 07/15/22 13:01 montelukast [Singulair] Allergy Unknown mood swings Verified 07/15/22 13:01 prednisone Allergy Unknown sob Verified 07/15/22 13:01 <LASHELL Garcia - Last Filed: 07/16/22 15:35> Active Medications: Current Medications Heparin Sodium (Porcine) (Heparin Sodium,Porcine 5,000 Unit/Ml Vial) 2,600 unit 40 unit/kg (2600 unit) IVPUSH PROTOCOL BOLUS PRN; Protocol PRN Reason: 40 unit/kg - Heparin Protocol Heparin Sodium (Porcine) (Heparin Sodium,Porcine 5,000 Unit/Ml Vial) 5,300 unit 80 unit/kg (5300 unit) IVPUSH PROTOCOL BOLUS PRN; Protocol PRN Reason: 80 unit/kg - Heparin Protocol Heparin Sodium/Sodium Chloride (Heparin Sodium,Porcine/1/2ns) 25,000 unit in 250 mls @ 0 mls/hr IVCONT .Q0M [facility]; Protocol Last Admin: 07/16/22 13:47 Dose: 12 units/kg/hr, 7.91 mls/hr Pharmacy Consult (Consult Rx Perform Med Rec) 1 each MISCELLANE ONCE PRN PRN Reason: Consult order <LASHELL Garcia - Last Filed: 07/16/22 15:35> Home medications: Home Medications Medication Instructions Recorded Confirmed Last Taken Type albuterol sulfate 90 mcg/actuation 2 puff inhalation QID PRN 07/16/22 07/16/22 07/16/22 History aerosol inhaler Shortness Of Breath Or Wheezing azithromycin 250 mg tablet 250 mg PO DAILY 07/16/22 07/16/22 07/16/22 History calcium carbonate 600 mg calcium 600 mg PO BID 07/16/22 07/16/22 07/16/22 History (1,500 mg) tablet (Calcium) cetirizine 10 mg tablet 10 mg PO BEDTIME 07/16/22 07/16/22 07/15/22 History cholecalciferol (vitamin D3) 50 50 mcg PO BEDTIME 07/16/22 07/16/22 07/15/22 History mcg (2,000 unit) tablet (Vitamin D3) fluticasone 250 mcg-salmeterol 50 1 inh PO Q12H 07/16/22 07/16/22 07/16/22 History mcg/dose blistr powdr for inhalation fluticasone propionate 50 1 spray intranasal BID 07/16/22 07/16/22 07/16/22 History mcg/actuation nasal spray,suspension furosemide 20 mg tablet 20 mg PO BEDTIME PRN Edema 07/16/22 07/16/22 07/15/22 History furosemide 20 mg tablet 20 mg PO DAILY@1700 07/16/22 07/16/22 07/15/22 History furosemide 40 mg tablet 40 mg PO DAILY 07/16/22 07/16/22 07/16/22 History ipratropium 0.5 mg-albuterol 3 mg 1.5 ml inhalation Q6H PRN 07/16/22 07/16/22 07/15/22 History (2.5 mg base)/3 mL nebulization Shortness Of Breath Or Wheezing soln magnesium 200 mg tablet 400 mg PO BEDTIME 07/16/22 07/16/22 07/15/22 History multivitamin 1 tab PO DAILY 07/16/22 07/16/22 07/16/22 History pravastatin 20 mg tablet 20 mg PO BEDTIME 07/16/22 07/16/22 07/15/22 History <LASHELL Garcia - Last Filed: 07/16/22 15:35> Physical Exam Vital Signs and Narrative: Vital Signs: Last Vital Signs Temp 97.5 F 07/16/22 14:00 Pulse 93 07/16/22 14:00 Resp 24 H 07/16/22 14:00 BP 123/84 07/16/22 14:00 Pulse Ox 98 07/16/22 14:00 O2 Del Method 07/16/22 14:00 Oxygen Flow Rate 3 07/16/22 10:59 BMI result Body Mass Index 28.3 <LASHELL Garcia - Last Filed: 07/16/22 15:35> Constitutional - Awake and Alert, No apparent distress Eyes - PERRLA, EOMI Cardiovascular - S1S2, RRR, 1+ BLE edema Respiratory - Normal lung expansion, Normal respiratory effort, No respiratory distress, diffuse wheezing with coarse crackles Gastrointestinal - NT / ND; +BS; No rebound or guarding Extremities - no calf tenderness bilaterally, no swelling Skin - Warm/Dry Neurological - Alert & oriented x3, CN II-XII in tact Psychological - Appropriate affect <LASHELL Garcia - Last Filed: 07/16/22 15:35> Results Labs CBC and Chem 7: : 07/16/22 11:58 07/17/22 04:11 <LASHELL Garcia - Last Filed: 07/16/22 15:35> Labs: Laboratory Results - last 24 hr 07/16/22 07/16/22 07/16/22 11:40 11:40 11:40 MCV MCH MCHC RDW Plt Count MPV Immature Gran % (Auto) Neut % (Auto) Lymph % (Auto) Dawson % (Auto) Eos % (Auto) Baso % (Auto) Lymph # (Auto) Dawson # (Auto) Eos # (Auto) Baso # (Auto) Abs Immat Gran (auto) Absolute Neuts (auto) Absolute Nucleated RBC Nucleated RBC % (auto) Smear Tech's Comments PT INR APTT D-Dimer High Sensitivty VBG pH VBG pCO2 VBG pO2 VBG HCO3 VBG O2 Saturation VBG Base Excess Anion Gap 16 Estim Creat Clear Calc 40.9 Estimated GFR 56 Random Glucose 143 H Lactic Acid Calcium 9.0 Total Bilirubin 0.7 AST 57 H ALT 22 Alkaline Phosphatase 47 Total Creatine Kinase 979 H Troponin I High Sens > 3600.0 H* B-Natriuretic Peptide Total Protein 6.9 Albumin 4.2 Influenza Type A (PCR) POSITIVE A Influenza Type B (PCR) NEGATIVE RSV RNA Qual (PCR) NEGATIVE SARS-CoV-2 RNA (RT-PCR) NEGATIVE 07/16/22 07/16/22 07/16/22 11:40 11:40 11:40 MCV MCH MCHC RDW Plt Count MPV Immature Gran % (Auto) Neut % (Auto) Lymph % (Auto) Dawson % (Auto) Eos % (Auto) Baso % (Auto) Lymph # (Auto) Dawson # (Auto) Eos # (Auto) Baso # (Auto) Abs Immat Gran (auto) Absolute Neuts (auto) Absolute Nucleated RBC Nucleated RBC % (auto) Smear Tech's Comments PT INR APTT D-Dimer High Sensitivty 320 VBG pH VBG pCO2 VBG pO2 VBG HCO3 VBG O2 Saturation VBG Base Excess Anion Gap Estim Creat Clear Calc Estimated GFR Random Glucose Lactic Acid 2.6 H* Calcium Total Bilirubin AST ALT Alkaline Phosphatase Total Creatine Kinase Troponin I High Sens B-Natriuretic Peptide 2908 H Total Protein Albumin Influenza Type A (PCR) Influenza Type B (PCR) RSV RNA Qual (PCR) SARS-CoV-2 RNA (RT-PCR) 07/16/22 07/16/22 07/16/22 11:40 11:58 12:53 MCV 95.0 MCH 32.5 MCHC 34.2 RDW 13.4 Plt Count 201 MPV 9.5 Immature Gran % (Auto) 0.1 Neut % (Auto) 92.5 H Lymph % (Auto) 4.7 L Dawson % (Auto) 2.5 Eos % (Auto) 0.1 Baso % (Auto) 0.1 Lymph # (Auto) 0.4 L Dawson # (Auto) 0.2 Eos # (Auto) 0.0 Baso # (Auto) 0.0 Abs Immat Gran (auto) 0.01 Absolute Neuts (auto) 7.2 Absolute Nucleated RBC 0.000 Nucleated RBC % (auto) 0.0 Smear Tech's Comments VERIFIED PT 11.3 INR 1.0 APTT 30.8 D-Dimer High Sensitivty VBG pH 7.43 VBG pCO2 30 VBG pO2 46 VBG HCO3 20 L VBG O2 Saturation 74.0 VBG Base Excess -2.1 Anion Gap Estim Creat Clear Calc Estimated GFR Random Glucose Lactic Acid Calcium Total Bilirubin AST ALT Alkaline Phosphatase Total Creatine Kinase Troponin I High Sens B-Natriuretic Peptide Total Protein Albumin Influenza Type A (PCR) Influenza Type B (PCR) RSV RNA Qual (PCR) SARS-CoV-2 RNA (RT-PCR) <LASHELL Garcia - Last Filed: 07/16/22 15:35> Imaging Radiologist's Impressions: Impressions Chest X-Ray 07/16/22 11:46 IMPRESSION: Nonspecific patchy airspace disease at both perihilar and lower lung [place], may represent pneumonia versus pulmonary venous congestion or combination thereof, new since 07/07/2020. Chest CTA 07/16/22 13:13 IMPRESSION: 1. No CT evidence of pulmonary thromboembolism. The etiology for shortness of breath is not evident on these images. Note is however made of presence of extensive emphysematous disease with predominant involvement of both upper lobes and presence of moderate cardiomegaly and likely mild pulmonary venous congestion. VTE: Negative. <LASHELL Garcia - Last Filed: 07/16/22 15:35> Assessment and Plan (1) Elevated troponin: Status: Acute <LASHELL Garcia - Last Filed: 07/16/22 15:35> (2) Influenza A: Status: Acute <LASHELL Garcia - Last Filed: 07/16/22 15:35> (3) COPD (chronic obstructive pulmonary disease): Status: Acute <LASHELL Garcia - Last Filed: 07/16/22 15:35> (4) CHF (congestive heart failure): Status: Acute <LASHELL Garcia - Last Filed: 07/16/22 15:35> 77 year old female with history HFpEF, pulmonary hypertension, COPD with chronic hypoxic respiratory failure on 1-2 L supplemental O2 at baseline, hypertension, hyperlipidemia, history of Meniere's disease, osteoporosis on Reclast, JEIMY, sick sinus syndrome s/p pacemaker placement, and chronic hyponatremia admitted for acute CHF exacerbation, COPD exacerbation, and influenza. #Acute on chronic hypoxemic respiratory failure- secondary to CHF exacerbation and influenza A -Continue supplemental O2 to maintain oximetry > 92% -treat CHF and influenza A below # acute CHF exacerbation -CXR and chest CTA with mild pulmonary venous congestion -appreciate cardiology input -IV Lasix 40 mg b.i.d. -strict I&O -cardiac diet -daily weights -Follow BNP # elevated troponin likely related to CHF -Trop >3600. Follow Trop until peaked -EKG without acute ischemic changes -On heparin drip per protocol per cards -Appreciate cardiology input #influenza A -continue supplemental oxygen as above for hypoxemia -CXR without any focal consolidation suggestive of pneumonia -Tamiflu 30 mg b.i.d. -supportive care # acute COPD exacerbation -IV Solu-Medrol 60 mg b.i.d. -DuoNebs q.4h while awake -albuterol p.r.n. -treat hypoxemia as above # elevated CK -CK 979 -likely related to viral illness, not rhabdo -hold IV fluids as patient is volume overloaded # hypertension-reasonably controlled -continue home meds # hyponatremia -has been a chronic issue -avoid IV fluids as above -follow BMP Full code DVT prophylaxis-on heparin drip Patient requires inpatient stay of at least 2 midnights for management of acute CHF exacerbation requiring IV diuresis and close monitoring of volume status, renal function, electrolytes as well as elevated troponin level now on heparin drip requiring close monitoring for any cardiopulmonary decompensation Addendum to history and physical by LASHELL Asif I interviewed and examined the patient. I discussed their presentation and management with the mid-level provider. I reviewed the history and physical and agree with the documentation, with the following additions and corrections: 77yo F with CHF, COPD, HTN, chronic resp failure on 1-2L O2 via NC. 2 recent COPD exacerbations in last 1 mo requiring prednisone and antibiotics [azithro, then amox]. Presents with 5 lb weight gain over last 2d, worsening dyspnea, and cough. No edema. No fever at home but here T 100.6. In resp distress, breathing 24 times a minute with diffuse exp wheezing and prolonged exp phase. CTA with no PE but with pulm venous congestion and extensive emphysema. Influenza A positive. Hs-Tn-I >3600. BNP 2908. Lactate 2.6. CPK 979. EKG with RBBB/LPFB, inferolateral TWIs. Impression of influenza A-driven COPD exacerbation with CHF exacerbation and NSTEMI. Admit to [facility]MC, heparinize, consult Cardiology, diurese with IV furosemide, obtain echocardiogram, give steroids/nebs, and give oseltamivir. <LASHELL Garcia - Last Filed: 07/16/22 15:35> Addendum to history and physical by LASHELL Asif I interviewed and examined the patient. I discussed their presentation and management with the mid-level provider. I reviewed the history and physical and agree with the documentation, with the following additions and corrections: 77yo F with CHF, COPD, HTN, chronic resp failure on 1-2L O2 via NC. 2 recent COPD exacerbations in last 1 mo requiring prednisone and antibiotics [azithro, then amox]. Presents with 5 lb weight gain over last 2d, worsening dyspnea, and cough. No edema. No fever at home but here T 100.6. In resp distress, breathing 24 times a minute with diffuse exp wheezing and prolonged exp phase. CTA with no PE but with pulm venous congestion and extensive emphysema. Influenza A positive. Hs-Tn-I >3600. BNP 2908. Lactate 2.6. CPK 979. EKG with RBBB/LPFB, inferolateral TWIs. Impression of influenza A-driven COPD exacerbation with CHF exacerbation and NSTEMI. Admit to IMC, heparinize, consult Cardiology, diurese with IV furosemide, obtain echocardiogram, give steroids/nebs, and give oseltamivir. <Summer Montenegro MD - Last Filed: 07/17/22 11:27> Time Spent With Patient Time: Total time managing care of this patient today ____ minutes. <LASHELL Garcia - Last Filed: 07/16/22 15:35> Quality Stroke Does the patient have a stroke diagnosis?: No <LASHELL Garcia - Last Filed: 07/16/22 15:35> VTE Prior VTE?: No <LASHELL Garcia - Last Filed: 07/16/22 15:35> VTE Risk Level:: Medical - moderate - high <LASHELL Garcia - Last Filed: 07/16/22 15:35> VTE Device Contraindication: Treatment Not Indicated <LASHELL Garcia - Last Filed: 07/16/22 15:35> VTE Drug Contraindication: N/A - Med Ordered <LASHELL Garcia - Last Filed: 07/16/22 15:35>
--- NOTE | 2022-07-16 15:06 | PM.EVENT ---
Event Note Date of Service: 07/16/22 Event Note: Addendum to history and physical by mid-level provider, MARCY Asif I interviewed and examined the patient. I discussed their presentation and management with the mid-level provider. I reviewed the history and physical and agree with the documentation, with the following additions and corrections: 77yo F with CHF, COPD, HTN, chronic respiratory failure on 1-2L O2 at OR with 2 recent COPD flares requiring prednisone and antibiotics treatment [azithromycin, then amoxicillin. Came in today with 5 lb weight gain overnight, worsening dyspnea, and cough. No fever at home but here febrile to 100.6. On exam, in mod resp distress, breathing 24 times a minute with prolonged expiratory phase and wheezing. No edema. CTA: no PE; mild pulmonary venous congestion; extensive emphysema. LA 2.6, hs-T-I >#600, CPK 979. Influenza A positive. EKG with RBBB, RAD, inferolateral TWIs. Will admit to [facility] for management of NSTEMI with heparinization/Cardiology consult/echocardiography, COPD exacerbation with steroids/nebs, CHF exacerbation with IV furosemide, and influenza with oseltamivir.
[2022-07-16 15:52] LABS: ~Lactic Acid-LAB USE ONLY 2.6 mmol/L (0.5-2.0)
[2022-07-16 16:50] LABS: ~Lactic Acid-LAB USE ONLY 2.6 mmol/L (0.5-2.0)
[2022-07-16 17:43] LABS: Troponin-I High Sensitivity > 3600.0 ng/L (<3.5-17.0)
[2022-07-16 20:51] LABS: Troponin-I High Sensitivity > 3600.0 ng/L (<3.5-17.0)
[2022-07-17] VITALS (9 sets, daily range): BP systolic 103–160; BP diastolic 66–87; PULSE 86–103; RESP 15–20; TEMP 36.1–36.4; O2SAT 90–99
[2022-07-17 01:27] LABS: Troponin-I High Sensitivity > 3600.0 ng/L (<3.5-17.0)
[2022-07-17 04:30] LABS: PTT Heparin Drip 51.4 SEC (53-77.9)
[2022-07-17 04:44] LABS: Anion Gap 16 (12-20); Blood Urea Nitrogen 21 mg/dL (9-16); Calcium 8.6 mg/dL (8.4-10.2); Carbon Dioxide 22 mmol/L (22-29); Chloride 101 mmol/L (96-108); Estimated Glomerular Filt Rate 52; Glucose Random 133 mg/dL (60-115); Magnesium 2.5 mg/dL (1.6-2.6); Potassium 4.1 mmol/L (3.3-5.1); Sodium 135 mmol/L (135-145)
[2022-07-17 04:51] LABS: B Type Natriuretic Peptide 3048 pg/mL (<100)
[2022-07-17 05:08] LABS: Troponin-I High Sensitivity > 3600.0 ng/L (<3.5-17.0)
--- NOTE | 2022-07-17 08:54 | MHC.CM.PN ---
CM met with Patient at bedside and addressed IMM with her, providing her with the original and placing a copy on the chart. 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 Patient's O2 is supplied through [employer] and she is active with [facility] (unsure of agency name); home/resume said services is the goal and CM has initiated and will follow for dc planning. Patient has received Covid vax x 4 and her PCP is DR. Freida Yarbrough.
[2022-07-17] MEDS: Multivitamin TABLET 1 TAB PO (08:56)
[2022-07-17] MEDS: lisinopriL 40 MG TABLET PO (08:56)
[2022-07-17 10:12] LABS: PTT Heparin Drip 129.6 SEC (53-77.9)
--- NOTE | 2022-07-17 11:01 | PM.CNCAR ---
History of Present Illness History of Present Illness Date of Service: 07/18/22 Requesting physician: Summer Montenegro Chief complaint: CHF, NSTEMI, influenza Narrative: 77 female with h/o PPM, RBBB and bronchitis who is presenting with dyspnea and hypoxia. She had episode of bronchitis in May and received Abx. Since then she has given another course of antibiotics. Now presenting with worsening breathing and NSTEMI. She has RBBB and precordial T wave inversions. She has no CP. CT was done and she has been started on Tamiflu for Flu A and also receiving diuretics. She is feeling little better. She has PPM which was for SSS. [facility] Past Medical History Medical History (Updated 07/16/22 @ 15:33 by LASHELL Garcia) CHF (congestive heart failure) COPD (chronic obstructive pulmonary disease) HTN (hypertension) Hyperlipemia Hyponatremia Meniere disease Osteoporosis Pneumonia Rhabdomyolysis Sleep apnea SSS (sick sinus syndrome) Family History Family History Father Lung cancer Mother COPD (chronic obstructive pulmonary disease) Social History Social History Household Members: Spouse Housing: House Do you presently have visiting nurse or other home services: No Alcohol intake: never Patient Tobacco Use Status: Former Tobacco user e-Cigarette/Vaping Use: Never Used Second Hand Smoke Exposure: Yes Use of substances other than those prescribed or required for medical reasons: No Currently Displaying Signs/Symptoms of Drug Intoxication Withdrawal: No Have you been hit, kicked, punched, or otherwise hurt by someone within the past year? If so, by whom?: No Do you feel safe in your current relationship?: Yes Is there a partner from a previous relationship who is making you feel unsafe now?: No Are you made to feel afraid or neglected: No Advance Directives: No Advance Directives Information Provided: Yes Do you have thoughts of harming others: None Do you have a plan to hurt others: No Plan Recently lost weight without trying: No Nutrition Risks: No Nutritional Risk Patient : No : No Poor oral hygiene: No service: No Current occupational status: retired Cognitive needs: No Hearing needs: Yes Vision needs: Yes Meds Allergies Allergy/AdvReac Type Severity Reaction Status Date / Time gemifloxacin Allergy Unknown Rash Verified 07/15/22 13:01 montelukast [Singulair] Allergy Unknown mood swings Verified 07/15/22 13:01 prednisone Allergy Unknown sob Verified 07/15/22 13:01 Active Medications: Current Medications Acetaminophen (Acetaminophen 325 Mg Tablet) 650 mg PO Q6H PRN PRN Reason: Pain, Mild (Pain Scale 1-3) Albuterol Sulfate (Albuterol Sulfate (0.083%) 2.5 Mg/3 Ml Vial.Neb) 2.5 mg INHALE Q2H PRN PRN Reason: Shortness of Breath/Wheezing Albuterol Sulfate (Albuterol Sulfate 90 Mcg 8 Gm Inhaler) 2 puff INHALE QID PRN PRN Reason: Shortness Of Breath Or Wheezing Albuterol/Ipratropium (Albuterol/Iprat 2.5/0.5mg 3 Ml Ampul.Neb) 3 ml INHALE RQ4H WHILE AWAKE [facility] Last Admin: 07/17/22 08:00 Dose: 3 ml Albuterol/Ipratropium (Albuterol/Iprat 2.5/0.5mg 3 Ml Ampul.Neb) 1.5 ml INHALE Q6H PRN PRN Reason: Shortness Of Breath Or Wheezing Benzonatate (Benzonatate 100 Mg Capsule) 100 mg PO TID PRN PRN Reason: Cough Calcium Carbonate (Calcium Carbonate 500 Mg Tablet) 500 mg PO BID [facility] Last Admin: 07/17/22 08:57 Dose: 500 mg Docusate Sodium (Docusate Sodium 100 Mg Capsule) 100 mg PO BID PRN PRN Reason: constipation Fluticasone Propionate (Fluticasone Propionate Nasal 16 Gm [place]) 1 spray NOSTRIL-B BID [facility] Last Admin: 07/17/22 08:57 Dose: Not Given Fluticasone/Vilanterol (Fluticasone/Vilanterol 100/25 Blst.W.Dev) 1 puff INHALE RDAILY [facility] Last Admin: 07/17/22 08:03 Dose: Not Given Furosemide (Furosemide 20 Mg/2 Ml Vial) 40 mg IVPUSH BID@0900,1800 [facility]; Protocol Last Admin: 07/17/22 08:57 Dose: 40 mg Guaifenesin (Guaifenesin 200 Mg/10 Ml 10 Ml Liquid) 10 ml PO Q4H PRN PRN Reason: Cough Last Admin: 07/17/22 03:36 Dose: 10 ml Heparin Sodium (Porcine) (Heparin Sodium,Porcine 5,000 Unit/Ml Vial) 2,600 unit 40 unit/kg (2600 unit) IVPUSH PROTOCOL BOLUS PRN; Protocol PRN Reason: 40 unit/kg - Heparin Protocol Last Admin: 07/17/22 04:51 Dose: 2,600 unit Heparin Sodium (Porcine) (Heparin Sodium,Porcine 5,000 Unit/Ml Vial) 5,300 unit 80 unit/kg (5300 unit) IVPUSH PROTOCOL BOLUS PRN; Protocol PRN Reason: 80 unit/kg - Heparin Protocol Heparin Sodium/Sodium Chloride (Heparin Sodium,Porcine/1/2ns) 25,000 unit in 250 mls @ 0 mls/hr IVCONT .Q0M NGUYEN; Protocol Last Titration: 07/17/22 04:52 Dose: 11 units/kg/hr, 7.25 mls/hr Lisinopril (Lisinopril 40 Mg Tablet) 40 mg PO DAILY [facility]; Protocol Last Admin: 07/17/22 08:56 Dose: 40 mg Loratadine (Loratadine 10 Mg Tablet) 10 mg PO BEDTIME NGUYEN Last Admin: 07/16/22 22:00 Dose: 10 mg Magnesium Oxide (Magnesium Oxide 400 Mg Tablet) 400 mg PO BEDTIME [facility]GUYEN Last Admin: 07/16/22 22:00 Dose: 400 mg Methylprednisolone Sodium Succinate (Methylprednisolone Sod Succ 125 Mg/2 Ml Vial) 60 mg IVPUSH Q12H [facility]GUYEN Last Admin: 07/16/22 22:00 Dose: 60 mg Multivitamins/Vitamin C (Multivitamin Tablet) 1 tab PO DAILY [facility] Last Admin: 07/17/22 08:56 Dose: 1 tab Ondansetron HCl (Ondansetron Hcl 4 Mg/2 Ml Vial) 4 mg IVPUSH Q8H PRN PRN Reason: Nausea and Vomiting Oseltamivir Phosphate (Oseltamivir Phosphate 30 Mg Capsule) 30 mg PO Q12H [facility] Stop: 07/21/22 06:01 Last Admin: 07/17/22 04:55 Dose: 30 mg Pharmacy Consult (Consult Rx Perform Med Rec) 1 each MISCELLANE ONCE PRN PRN Reason: Consult order Pravastatin Sodium (Pravastatin Sodium 20 Mg Tablet) 20 mg PO BEDTIME [facility] Last Admin: 07/16/22 21:59 Dose: 20 mg Sodium Chloride (0.9 % Sodium Chloride Flush 3 Ml Syringe) 3 ml IVFLUSH QSHIFT [facility] Last Admin: 07/17/22 08:56 Dose: 3 ml Vitamin D (Cholecalciferol (Vitamin D3) 25 Mcg Tablet) 50 mcg PO BEDTIME [facility] Last Admin: 07/16/22 22:00 Dose: 50 mcg Home Medications Medication Instructions Recorded Confirmed Last Taken Type albuterol sulfate 90 mcg/actuation 2 puff inhalation QID PRN 07/16/22 07/16/22 07/16/22 History aerosol inhaler Shortness Of Breath Or Wheezing azithromycin 250 mg tablet 250 mg PO DAILY 07/16/22 07/16/22 07/16/22 History calcium carbonate 600 mg calcium 600 mg PO BID 07/16/22 07/16/22 07/16/22 History (1,500 mg) tablet (Calcium) cetirizine 10 mg tablet 10 mg PO BEDTIME 07/16/22 07/16/22 07/15/22 History cholecalciferol (vitamin D3) 50 50 mcg PO BEDTIME 07/16/22 07/16/22 07/15/22 History mcg (2,000 unit) tablet (Vitamin D3) fluticasone 250 mcg-salmeterol 50 1 inh PO Q12H 07/16/22 07/16/22 07/16/22 History mcg/dose blistr powdr for inhalation fluticasone propionate 50 1 spray intranasal BID 07/16/22 07/16/22 07/16/22 History mcg/actuation nasal spray,suspension furosemide 20 mg tablet 20 mg PO BEDTIME PRN Edema 07/16/22 07/16/22 07/15/22 History furosemide 20 mg tablet 20 mg PO DAILY@1700 07/16/22 07/16/22 07/15/22 History furosemide 40 mg tablet 40 mg PO DAILY 07/16/22 07/16/22 07/16/22 History ipratropium 0.5 mg-albuterol 3 mg 1.5 ml inhalation Q6H PRN 07/16/22 07/16/22 07/15/22 History (2.5 mg base)/3 mL nebulization Shortness Of Breath Or Wheezing soln magnesium 200 mg tablet 400 mg PO BEDTIME 1207/16/22 07/15/22 History multivitamin 1 tab PO DAILY 07/16/22 07/16/22 07/16/22 History pravastatin 20 mg tablet 20 mg PO BEDTIME 07/16/22 07/16/22 07/15/22 History Physical Exam Vital Signs: Vital Signs: Last Vital Signs Temp 97.6 F 07/17/22 07:26 Pulse 93 07/17/22 08:01 Resp 15 07/17/22 08:01 BP 160/87 H 07/17/22 07:26 Pulse Ox 95 07/17/22 07:26 O2 Del Method 07/17/22 07:26 O2 Flow Rate 4 07/17/22 07:26 Oxygen Flow Rate 3 07/16/22 10:59 BMI result Body Mass Index 28.3 GENERAL APPEARANCE: in no acute distress, pleasant. On supplemental oxygen NECK: no carotid bruit, positive jugular venous distention. SKIN: no suspicious lesions, warm and dry. HEART: no murmurs, regular rate and rhythm. LUNGS: Few crackles at bases. ABDOMEN: soft, nontender. EXTREMITIES: no edema. PERIPHERAL PULSES: equal. NEUROLOGIC: No gross deficits, AAO X 3 Objective Labs and Meds Result diagrams: 07/18/22 06:12 07/18/22 06:12 Lab results: Laboratory Results - last 24 hr 07/16/22 07/16/22 07/16/22 11:40 11:40 11:40 WBC RBC Hgb Hct MCV MCH MCHC RDW Plt Count MPV Immature Gran % (Auto) Neut % (Auto) Lymph % (Auto) [place] % (Auto) Eos % (Auto) Baso % (Auto) Lymph # (Auto) [place] # (Auto) Eos # (Auto) Baso # (Auto) Abs Immat Gran (auto) Absolute Neuts (auto) Absolute Nucleated RBC Nucleated RBC % (auto) Smear Tech's Comments PT INR APTT aPTT Heparin Protocol D-Dimer High Sensitivty VBG pH VBG pCO2 VBG pO2 VBG HCO3 VBG O2 Saturation VBG Base Excess Sodium 132 L Potassium 4.1 Chloride 99 Carbon Dioxide 21 L Anion Gap 16 BUN 16 Creatinine 0.96 Estim Creat Clear Calc 40.9 Estimated GFR 56 POC Glucose Random Glucose 143 H Lactic Acid Lactic Acid F/U @ 2Hr Lactic Acid F/U @ 4Hr Calcium 9.0 Magnesium Total Bilirubin 0.7 AST 57 H ALT 22 Alkaline Phosphatase 47 Total Creatine Kinase 979 H Troponin I High Sens > 3600.0 H* B-Natriuretic Peptide Total Protein 6.9 Albumin 4.2 Influenza Type A (PCR) POSITIVE A Influenza Type B (PCR) NEGATIVE RSV RNA Qual (PCR) NEGATIVE SARS-CoV-2 RNA (RT-PCR) NEGATIVE 07/16/22 07/16/22 07/16/22 11:40 11:40 11:40 WBC RBC Hgb Hct MCV MCH MCHC RDW Plt Count MPV Immature Gran % (Auto) Neut % (Auto) Lymph % (Auto) [place] % (Auto) Eos % (Auto) Baso % (Auto) Lymph # (Auto) [place] # (Auto) Eos # (Auto) Baso # (Auto) Abs Immat Gran (auto) Absolute Neuts (auto) Absolute Nucleated RBC Nucleated RBC % (auto) Smear Tech's Comments PT INR APTT aPTT Heparin Protocol D-Dimer High Sensitivty 320 VBG pH VBG pCO2 VBG pO2 VBG HCO3 VBG O2 Saturation VBG Base Excess Sodium Potassium Chloride Carbon Dioxide Anion Gap BUN Creatinine Estim Creat Clear Calc Estimated GFR POC Glucose Random Glucose Lactic Acid 2.6 H* Lactic Acid F/U @ 2Hr Lactic Acid F/U @ 4Hr Calcium Magnesium Total Bilirubin AST ALT Alkaline Phosphatase Total Creatine Kinase Troponin I High Sens B-Natriuretic Peptide 2908 H Total Protein Albumin Influenza Type A (PCR) Influenza Type B (PCR) RSV RNA Qual (PCR) SARS-CoV-2 RNA (RT-PCR) 07/16/22 07/16/22 07/16/22 11:40 11:58 12:53 WBC 7.7 RBC 3.97 L Hgb 12.9 Hct 37.7 MCV 95.0 MCH 32.5 MCHC 34.2 RDW 13.4 Plt Count 201 MPV 9.5 Immature Gran % (Auto) 0.1 Neut % (Auto) 92.5 H Lymph % (Auto) 4.7 L [place] % (Auto) 2.5 Eos % (Auto) 0.1 Baso % (Auto) 0.1 Lymph # (Auto) 0.4 L [place] # (Auto) 0.2 Eos # (Auto) 0.0 Baso # (Auto) 0.0 Abs Immat Gran (auto) 0.01 Absolute Neuts (auto) 7.2 Absolute Nucleated RBC 0.000 Nucleated RBC % (auto) 0.0 Smear Tech's Comments VERIFIED PT 11.3 INR 1.0 APTT 30.8 aPTT Heparin Protocol D-Dimer High Sensitivty VBG pH 7.43 VBG pCO2 30 VBG pO2 46 VBG HCO3 20 L VBG O2 Saturation 74.0 VBG Base Excess -2.1 Sodium Potassium Chloride Carbon Dioxide Anion Gap BUN Creatinine Estim Creat Clear Calc Estimated GFR POC Glucose Random Glucose Lactic Acid Lactic Acid F/U @ 2Hr Lactic Acid F/U @ 4Hr Calcium Magnesium Total Bilirubin AST ALT Alkaline Phosphatase Total Creatine Kinase Troponin I High Sens B-Natriuretic Peptide Total Protein Albumin Influenza Type A (PCR) Influenza Type B (PCR) RSV RNA Qual (PCR) SARS-CoV-2 RNA (RT-PCR) 07/16/22 07/16/22 07/16/22 13:56 15:57 16:04 WBC RBC Hgb Hct MCV MCH MCHC RDW Plt Count MPV Immature Gran % (Auto) Neut % (Auto) Lymph % (Auto) [place] % (Auto) Eos % (Auto) Baso % (Auto) Lymph # (Auto) [place] # (Auto) Eos # (Auto) Baso # (Auto) Abs Immat Gran (auto) Absolute Neuts (auto) Absolute Nucleated RBC Nucleated RBC % (auto) Smear Tech's Comments PT INR APTT aPTT Heparin Protocol D-Dimer High Sensitivty VBG pH VBG pCO2 VBG pO2 VBG HCO3 VBG O2 Saturation VBG Base Excess Sodium Potassium Chloride Carbon Dioxide Anion Gap BUN Creatinine Estim Creat Clear Calc Estimated GFR POC Glucose Random Glucose Lactic Acid Lactic Acid F/U @ 2Hr 2.6 H* Lactic Acid F/U @ 4Hr 2.6 H* Calcium Magnesium Total Bilirubin AST ALT Alkaline Phosphatase Total Creatine Kinase Troponin I High Sens > 3600.0 H* B-Natriuretic Peptide Total Protein Albumin Influenza Type A (PCR) Influenza Type B (PCR) RSV RNA Qual (PCR) SARS-CoV-2 RNA (RT-PCR) 07/16/22 07/16/22 07/16/22 19:58 19:58 21:02 WBC RBC Hgb Hct MCV MCH MCHC RDW Plt Count MPV Immature Gran % (Auto) Neut % (Auto) Lymph % (Auto) [place] % (Auto) Eos % (Auto) Baso % (Auto) Lymph # (Auto) [place] # (Auto) Eos # (Auto) Baso # (Auto) Abs Immat Gran (auto) Absolute Neuts (auto) Absolute Nucleated RBC Nucleated RBC % (auto) Smear Tech's Comments PT INR APTT aPTT Heparin Protocol 100.0 H D-Dimer High Sensitivty VBG pH VBG pCO2 VBG pO2 VBG HCO3 VBG O2 Saturation VBG Base Excess Sodium Potassium Chloride Carbon Dioxide Anion Gap BUN Creatinine Estim Creat Clear Calc Estimated GFR POC Glucose 183 H Random Glucose Lactic Acid Lactic Acid F/U @ 2Hr Lactic Acid F/U @ 4Hr Calcium Magnesium Total Bilirubin AST ALT Alkaline Phosphatase Total Creatine Kinase Troponin I High Sens > 3600.0 H* B-Natriuretic Peptide Total Protein Albumin Influenza Type A (PCR) Influenza Type B (PCR) RSV RNA Qual (PCR) SARS-CoV-2 RNA (RT-PCR) 07/17/22 07/17/22 07/17/22 00:28 04:11 04:11 WBC RBC Hgb Hct MCV MCH MCHC RDW Plt Count MPV Immature Gran % (Auto) Neut % (Auto) Lymph % (Auto) [place] % (Auto) Eos % (Auto) Baso % (Auto) Lymph # (Auto) [place] # (Auto) Eos # (Auto) Baso # (Auto) Abs Immat Gran (auto) Absolute Neuts (auto) Absolute Nucleated RBC Nucleated RBC % (auto) Smear Tech's Comments PT INR APTT aPTT Heparin Protocol 51.4 L D D-Dimer High Sensitivty VBG pH VBG pCO2 VBG pO2 VBG HCO3 VBG O2 Saturation VBG Base Excess Sodium Potassium Chloride Carbon Dioxide Anion Gap BUN Creatinine Estim Creat Clear Calc Estimated GFR POC Glucose Random Glucose Lactic Acid Lactic Acid F/U @ 2Hr Lactic Acid F/U @ 4Hr Calcium Magnesium Total Bilirubin AST ALT Alkaline Phosphatase Total Creatine Kinase Troponin I High Sens > 3600.0 H* > 3600.0 H* B-Natriuretic Peptide Total Protein Albumin Influenza Type A (PCR) Influenza Type B (PCR) RSV RNA Qual (PCR) SARS-CoV-2 RNA (RT-PCR) 07/17/22 07/17/22 07/17/22 04:11 04:11 08:45 WBC RBC Hgb Hct MCV MCH MCHC RDW Plt Count MPV Immature Gran % (Auto) Neut % (Auto) Lymph % (Auto) [place] % (Auto) Eos % (Auto) Baso % (Auto) Lymph # (Auto) [place] # (Auto) Eos # (Auto) Baso # (Auto) Abs Immat Gran (auto) Absolute Neuts (auto) Absolute Nucleated RBC Nucleated RBC % (auto) Smear Tech's Comments PT INR APTT aPTT Heparin Protocol 129.6 H* D D-Dimer High Sensitivty VBG pH VBG pCO2 VBG pO2 VBG HCO3 VBG O2 Saturation VBG Base Excess Sodium 135 Potassium 4.1 Chloride 101 Carbon Dioxide 22 Anion Gap 16 BUN 21 H Creatinine 1.03 Estim Creat Clear Calc 38.0 Estimated GFR 52 POC Glucose Random Glucose 133 H Lactic Acid Lactic Acid F/U @ 2Hr Lactic Acid F/U @ 4Hr Calcium 8.6 Magnesium 2.5 Total Bilirubin AST ALT Alkaline Phosphatase Total Creatine Kinase 1619 H Troponin I High Sens B-Natriuretic Peptide 3048 H Total Protein Albumin Influenza Type A (PCR) Influenza Type B (PCR) RSV RNA Qual (PCR) SARS-CoV-2 RNA (RT-PCR) Imaging Radiologist's impression: Impressions Chest X-Ray 07/16/22 11:46 IMPRESSION: Nonspecific patchy airspace disease at both perihilar and lower lung [place], may represent pneumonia versus pulmonary venous congestion or combination thereof, new since 07/07/2020. Chest CTA 07/16/22 13:13 IMPRESSION: 1. No CT evidence of pulmonary thromboembolism. The etiology for shortness of breath is not evident on these images. Note is however made of presence of extensive emphysematous disease with predominant involvement of both upper lobes and presence of moderate cardiomegaly and likely mild pulmonary venous congestion. VTE: Negative. Assessment and Plan (1) Elevated troponin: Status: Acute (2) Influenza A: Status: Acute (3) CHF (congestive heart failure): Status: Acute Plan 77 female with COPD, PPM for SSS and h/o CHF. Patient of Dr Chaidez. Here with dyspnea, Flu + and has CHF. Also ruled in for NSTEMI. ECG has precordial T wave inversions. Diuresing. c/w hep gtt. Will get echo on her. c/w Tamiflu. If echo has RWMA then will discuss with [facility] cardio for transfer. Please start her on baby aspirin. We will follow along with you. Time Spent With Patient Time: Total time managing care of this patient today ____ minutes. Procedures Date of Service Date of Service: 07/18/22
[2022-07-17 11:05] LABS: PTT Heparin Drip 88.2 SEC (53-77.9)
--- NOTE | 2022-07-17 11:13 | HO.PM.IMPN ---
Subjective Subjective Date of Service: 07/17/22 Interval History: No chest pain Dyspnea improving On 3L O2 Review of Systems Review of Systems: Yes all other systems are reviewed and are negative Physical Exam Vital Signs: Vital Signs: Last Vital Signs Temp 97.6 F 07/17/22 07:26 Pulse 93 07/17/22 08:01 Resp 15 07/17/22 08:01 BP 160/87 H 07/17/22 07:26 Pulse Ox 95 07/17/22 07:26 O2 Del Method 07/17/22 07:26 O2 Flow Rate 4 07/17/22 07:26 Oxygen Flow Rate 3 07/16/22 10:59 BMI result Body Mass Index 28.3 Gen: in no acute distress HEENT: sclera anicteric, moist mucus membranes Neck: supple Lungs: expiratory wheezing, improved from yesterday Heart: regular rate and rhythm, no murmurs Abd: soft, non-tender, non-distended Ext: no edema Skin: warm/well-perfused Neuro: alert and oriented x3, no focal findings Psych: appropriate affect Objective Data Active Medications Acetaminophen (Acetaminophen 325 Mg Tablet) 650 mg PO Q6H PRN PRN Reason: Pain, Mild (Pain Scale 1-3) Albuterol Sulfate (Albuterol Sulfate (0.083%) 2.5 Mg/3 Ml Vial.Neb) 2.5 mg INHALE Q2H PRN PRN Reason: Shortness of Breath/Wheezing Albuterol Sulfate (Albuterol Sulfate 90 Mcg 8 Gm Inhaler) 2 puff INHALE QID PRN PRN Reason: Shortness Of Breath Or Wheezing Albuterol/Ipratropium (Albuterol/Iprat 2.5/0.5mg 3 Ml Ampul.Neb) 3 ml INHALE RQ4H WHILE AWAKE [facility] Last Admin: 07/17/22 08:00 Dose: 3 ml Documented By: STEWART Albuterol/Ipratropium (Albuterol/Iprat 2.5/0.5mg 3 Ml Ampul.Neb) 1.5 ml INHALE Q6H PRN PRN Reason: Shortness Of Breath Or Wheezing Aspirin (Aspirin 81 Mg Tab.Chew) 81 mg PO DAILY [facility] Benzonatate (Benzonatate 100 Mg Capsule) 100 mg PO TID PRN PRN Reason: Cough Calcium Carbonate (Calcium Carbonate 500 Mg Tablet) 500 mg PO BID [facility] Last Admin: 07/17/22 08:57 Dose: 500 mg Documented By: SHELLI Docusate Sodium (Docusate Sodium 100 Mg Capsule) 100 mg PO BID PRN PRN Reason: constipation Fluticasone Propionate (Fluticasone Propionate Nasal 16 Gm [place]) 1 spray NOSTRIL-B BID [facility] Last Admin: 07/17/22 08:57 Dose: Not Given Documented By: SHELLI Non-Admin Reason: Med Not Available Fluticasone/Vilanterol (Fluticasone/Vilanterol 100/25 Blst.W.Dev) 1 puff INHALE RDAILY [facility] Last Admin: 07/17/22 08:03 Dose: Not Given Documented By: STEWART Non-Admin Reason: Med Not Available Furosemide (Furosemide 20 Mg/2 Ml Vial) 40 mg IVPUSH BID@0900,1800 [facility]; Protocol Last Admin: 07/17/22 08:57 Dose: 40 mg Documented By: SHELLI Guaifenesin (Guaifenesin 200 Mg/10 Ml 10 Ml Liquid) 10 ml PO Q4H PRN PRN Reason: Cough Last Admin: 07/17/22 03:36 Dose: 10 ml Documented By: BOBO Heparin Sodium (Porcine) (Heparin Sodium,Porcine 5,000 Unit/Ml Vial) 2,600 unit 40 unit/kg (2600 unit) IVPUSH PROTOCOL BOLUS PRN; Protocol PRN Reason: 40 unit/kg - Heparin Protocol Last Admin: 07/17/22 04:51 Dose: 2,600 unit Documented By: BOBO Heparin Sodium (Porcine) (Heparin Sodium,Porcine 5,000 Unit/Ml Vial) 5,300 unit 80 unit/kg (5300 unit) IVPUSH PROTOCOL BOLUS PRN; Protocol PRN Reason: 80 unit/kg - Heparin Protocol Heparin Sodium/Sodium Chloride (Heparin Sodium,Porcine/1/2ns) 25,000 unit in 250 mls @ 0 mls/hr IVCONT .Q0M [facility]; Protocol Last Titration: 07/17/22 04:52 Dose: 11 units/kg/hr, 7.25 mls/hr Documented By: BOBO Co-signed By: BOBBI Lisinopril (Lisinopril 40 Mg Tablet) 40 mg PO DAILY [facility]; Protocol Last Admin: 07/17/22 08:56 Dose: 40 mg Documented By: SHELLI Loratadine (Loratadine 10 Mg Tablet) 10 mg PO BEDTIME [facility] Last Admin: 07/16/22 22:00 Dose: 10 mg Documented By: BOBO Magnesium Oxide (Magnesium Oxide 400 Mg Tablet) 400 mg PO BEDTIME [facility] Last Admin: 07/16/22 22:00 Dose: 400 mg Documented By: BOBO Methylprednisolone Sodium Succinate (Methylprednisolone Sod Succ 125 Mg/2 Ml Vial) 60 mg IVPUSH Q12H [facility] Last Admin: 07/16/22 22:00 Dose: 60 mg Documented By: BOBO Multivitamins/Vitamin C (Multivitamin Tablet) 1 tab PO DAILY [facility] Last Admin: 07/17/22 08:56 Dose: 1 tab Documented By: SHELLI Ondansetron HCl (Ondansetron Hcl 4 Mg/2 Ml Vial) 4 mg IVPUSH Q8H PRN PRN Reason: Nausea and Vomiting Oseltamivir Phosphate (Oseltamivir Phosphate 30 Mg Capsule) 30 mg PO Q12H [facility] Stop: 07/21/22 06:01 Last Admin: 07/17/22 04:55 Dose: 30 mg Documented By: BOBO Pharmacy Consult (Consult Rx Perform Med Rec) 1 each MISCELLANE ONCE PRN PRN Reason: Consult order Pravastatin Sodium (Pravastatin Sodium 20 Mg Tablet) 20 mg PO BEDTIME [facility] Last Admin: 07/16/22 21:59 Dose: 20 mg Documented By: BOBO Sodium Chloride (0.9 % Sodium Chloride Flush 3 Ml Syringe) 3 ml IVFLUSH QSHIFT [facility] Last Admin: 07/17/22 08:56 Dose: 3 ml Documented By: SHELLI Vitamin D (Cholecalciferol (Vitamin D3) 25 Mcg Tablet) 50 mcg PO BEDTIME [facility] Last Admin: 07/16/22 22:00 Dose: 50 mcg Documented By: BOBO Labs CBC & Chem 7: 07/16/22 11:58 07/17/22 04:11 Labs: Laboratory Results - last 24 hr 07/16/22 07/16/22 07/16/22 11:40 11:40 11:40 MCV MCH MCHC RDW Plt Count MPV Immature Gran % (Auto) Neut % (Auto) Lymph % (Auto) [place] % (Auto) Eos % (Auto) Baso % (Auto) Lymph # (Auto) [place] # (Auto) Eos # (Auto) Baso # (Auto) Abs Immat Gran (auto) Absolute Neuts (auto) Absolute Nucleated RBC Nucleated RBC % (auto) Smear Tech's Comments PT INR APTT aPTT Heparin Protocol D-Dimer High Sensitivty VBG pH VBG pCO2 VBG pO2 VBG HCO3 VBG O2 Saturation VBG Base Excess Anion Gap 16 Estim Creat Clear Calc 40.9 Estimated GFR 56 POC Glucose Random Glucose 143 H Lactic Acid Lactic Acid F/U @ 2Hr Lactic Acid F/U @ 4Hr Calcium 9.0 Magnesium Total Bilirubin 0.7 AST 57 H ALT 22 Alkaline Phosphatase 47 Total Creatine Kinase 979 H Troponin I High Sens > 3600.0 H* B-Natriuretic Peptide Total Protein 6.9 Albumin 4.2 Influenza Type A (PCR) POSITIVE A Influenza Type B (PCR) NEGATIVE RSV RNA Qual (PCR) NEGATIVE SARS-CoV-2 RNA (RT-PCR) NEGATIVE 07/16/22 07/16/22 07/16/22 11:40 11:40 11:40 MCV MCH MCHC RDW Plt Count MPV Immature Gran % (Auto) Neut % (Auto) Lymph % (Auto) [place] % (Auto) Eos % (Auto) Baso % (Auto) Lymph # (Auto) [place] # (Auto) Eos # (Auto) Baso # (Auto) Abs Immat Gran (auto) Absolute Neuts (auto) Absolute Nucleated RBC Nucleated RBC % (auto) Smear Tech's Comments PT INR APTT aPTT Heparin Protocol D-Dimer High Sensitivty 320 VBG pH VBG pCO2 VBG pO2 VBG HCO3 VBG O2 Saturation VBG Base Excess Anion Gap Estim Creat Clear Calc Estimated GFR POC Glucose Random Glucose Lactic Acid 2.6 H* Lactic Acid F/U @ 2Hr Lactic Acid F/U @ 4Hr Calcium Magnesium Total Bilirubin AST ALT Alkaline Phosphatase Total Creatine Kinase Troponin I High Sens B-Natriuretic Peptide 2908 H Total Protein Albumin Influenza Type A (PCR) Influenza Type B (PCR) RSV RNA Qual (PCR) SARS-CoV-2 RNA (RT-PCR) 07/16/22 07/16/22 07/16/22 11:40 11:58 12:53 MCV 95.0 MCH 32.5 MCHC 34.2 RDW 13.4 Plt Count 201 MPV 9.5 Immature Gran % (Auto) 0.1 Neut % (Auto) 92.5 H Lymph % (Auto) 4.7 L [place] % (Auto) 2.5 Eos % (Auto) 0.1 Baso % (Auto) 0.1 Lymph # (Auto) 0.4 L [place] # (Auto) 0.2 Eos # (Auto) 0.0 Baso # (Auto) 0.0 Abs Immat Gran (auto) 0.01 Absolute Neuts (auto) 7.2 Absolute Nucleated RBC 0.000 Nucleated RBC % (auto) 0.0 Smear Tech's Comments VERIFIED PT 11.3 INR 1.0 APTT 30.8 aPTT Heparin Protocol D-Dimer High Sensitivty VBG pH 7.43 VBG pCO2 30 VBG pO2 46 VBG HCO3 20 L VBG O2 Saturation 74.0 VBG Base Excess -2.1 Anion Gap Estim Creat Clear Calc Estimated GFR POC Glucose Random Glucose Lactic Acid Lactic Acid F/U @ 2Hr Lactic Acid F/U @ 4Hr Calcium Magnesium Total Bilirubin AST ALT Alkaline Phosphatase Total Creatine Kinase Troponin I High Sens B-Natriuretic Peptide Total Protein Albumin Influenza Type A (PCR) Influenza Type B (PCR) RSV RNA Qual (PCR) SARS-CoV-2 RNA (RT-PCR) 07/16/22 07/16/22 07/16/22 13:56 15:57 16:04 MCV MCH MCHC RDW Plt Count MPV Immature Gran % (Auto) Neut % (Auto) Lymph % (Auto) [place] % (Auto) Eos % (Auto) Baso % (Auto) Lymph # (Auto) [place] # (Auto) Eos # (Auto) Baso # (Auto) Abs Immat Gran (auto) Absolute Neuts (auto) Absolute Nucleated RBC Nucleated RBC % (auto) Smear Tech's Comments PT INR APTT aPTT Heparin Protocol D-Dimer High Sensitivty VBG pH VBG pCO2 VBG pO2 VBG HCO3 VBG O2 Saturation VBG Base Excess Anion Gap Estim Creat Clear Calc Estimated GFR POC Glucose Random Glucose Lactic Acid Lactic Acid F/U @ 2Hr 2.6 H* Lactic Acid F/U @ 4Hr 2.6 H* Calcium Magnesium Total Bilirubin AST ALT Alkaline Phosphatase Total Creatine Kinase Troponin I High Sens > 3600.0 H* B-Natriuretic Peptide Total Protein Albumin Influenza Type A (PCR) Influenza Type B (PCR) RSV RNA Qual (PCR) SARS-CoV-2 RNA (RT-PCR) 07/16/22 07/16/22 07/16/22 19:58 19:58 21:02 MCV MCH MCHC RDW Plt Count MPV Immature Gran % (Auto) Neut % (Auto) Lymph % (Auto) [place] % (Auto) Eos % (Auto) Baso % (Auto) Lymph # (Auto) [place] # (Auto) Eos # (Auto) Baso # (Auto) Abs Immat Gran (auto) Absolute Neuts (auto) Absolute Nucleated RBC Nucleated RBC % (auto) Smear Tech's Comments PT INR APTT aPTT Heparin Protocol 100.0 H D-Dimer High Sensitivty VBG pH VBG pCO2 VBG pO2 VBG HCO3 VBG O2 Saturation VBG Base Excess Anion Gap Estim Creat Clear Calc Estimated GFR POC Glucose 183 H Random Glucose Lactic Acid Lactic Acid F/U @ 2Hr Lactic Acid F/U @ 4Hr Calcium Magnesium Total Bilirubin AST ALT Alkaline Phosphatase Total Creatine Kinase Troponin I High Sens > 3600.0 H* B-Natriuretic Peptide Total Protein Albumin Influenza Type A (PCR) Influenza Type B (PCR) RSV RNA Qual (PCR) SARS-CoV-2 RNA (RT-PCR) 07/17/22 07/17/22 07/17/22 00:28 04:11 04:11 MCV MCH MCHC RDW Plt Count MPV Immature Gran % (Auto) Neut % (Auto) Lymph % (Auto) [place] % (Auto) Eos % (Auto) Baso % (Auto) Lymph # (Auto) [place] # (Auto) Eos # (Auto) Baso # (Auto) Abs Immat Gran (auto) Absolute Neuts (auto) Absolute Nucleated RBC Nucleated RBC % (auto) Smear Tech's Comments PT INR APTT aPTT Heparin Protocol 51.4 L D D-Dimer High Sensitivty VBG pH VBG pCO2 VBG pO2 VBG HCO3 VBG O2 Saturation VBG Base Excess Anion Gap Estim Creat Clear Calc Estimated GFR POC Glucose Random Glucose Lactic Acid Lactic Acid F/U @ 2Hr Lactic Acid F/U @ 4Hr Calcium Magnesium Total Bilirubin AST ALT Alkaline Phosphatase Total Creatine Kinase Troponin I High Sens > 3600.0 H* > 3600.0 H* B-Natriuretic Peptide Total Protein Albumin Influenza Type A (PCR) Influenza Type B (PCR) RSV RNA Qual (PCR) SARS-CoV-2 RNA (RT-PCR) 07/17/22 07/17/22 07/17/22 04:11 04:11 08:45 MCV MCH MCHC RDW Plt Count MPV Immature Gran % (Auto) Neut % (Auto) Lymph % (Auto) [place] % (Auto) Eos % (Auto) Baso % (Auto) Lymph # (Auto) [place] # (Auto) Eos # (Auto) Baso # (Auto) Abs Immat Gran (auto) Absolute Neuts (auto) Absolute Nucleated RBC Nucleated RBC % (auto) Smear Tech's Comments PT INR APTT aPTT Heparin Protocol 129.6 H* D D-Dimer High Sensitivty VBG pH VBG pCO2 VBG pO2 VBG HCO3 VBG O2 Saturation VBG Base Excess Anion Gap 16 Estim Creat Clear Calc 38.0 Estimated GFR 52 POC Glucose Random Glucose 133 H Lactic Acid Lactic Acid F/U @ 2Hr Lactic Acid F/U @ 4Hr Calcium 8.6 Magnesium 2.5 Total Bilirubin AST ALT Alkaline Phosphatase Total Creatine Kinase 1619 H Troponin I High Sens B-Natriuretic Peptide 3048 H Total Protein Albumin Influenza Type A (PCR) Influenza Type B (PCR) RSV RNA Qual (PCR) SARS-CoV-2 RNA (RT-PCR) 07/17/22 10:28 MCV MCH MCHC RDW Plt Count MPV Immature Gran % (Auto) Neut % (Auto) Lymph % (Auto) [place] % (Auto) Eos % (Auto) Baso % (Auto) Lymph # (Auto) [place] # (Auto) Eos # (Auto) Baso # (Auto) Abs Immat Gran (auto) Absolute Neuts (auto) Absolute Nucleated RBC Nucleated RBC % (auto) Smear Tech's Comments PT INR APTT aPTT Heparin Protocol 88.2 H D D-Dimer High Sensitivty VBG pH VBG pCO2 VBG pO2 VBG HCO3 VBG O2 Saturation VBG Base Excess Anion Gap Estim Creat Clear Calc Estimated GFR POC Glucose Random Glucose Lactic Acid Lactic Acid F/U @ 2Hr Lactic Acid F/U @ 4Hr Calcium Magnesium Total Bilirubin AST ALT Alkaline Phosphatase Total Creatine Kinase Troponin I High Sens B-Natriuretic Peptide Total Protein Albumin Influenza Type A (PCR) Influenza Type B (PCR) RSV RNA Qual (PCR) SARS-CoV-2 RNA (RT-PCR) Assessment and Plan (1) Influenza A: Status: Acute Plan d#2 77yo F with CHF, pHTN, COPD with chronic hypoxic RF on 1-2L O2 via NC, HTN, SSS s/p PPM, JEIMY admitted for CHF exacerbation, COPD exacerbation, influenza A, and NSTEMI # NSTEMI - demand ischemia? influenza myocarditis? ACS? on heparin gtt and consulting Cardiology. start ASA. TTE. # COPD exacerbation - steroids, standing/prn nebs, continue ICS/LABA # acute-chronic HFpEF - IV furosemide, monitor BNP/BMP/I+O, TTE # influenza - oseltamivir d#08/28 # elevated CPK - due to influenza- myositis? monitor. no fluids as not rhabdo and pt is volume-overloaded # acute/chronic hypoxic resp failure - wean O2 as tolerated # HTN - continue lisinopril # VTE ppx: LMWH In my clinical judgment, the patient requires continued inpatient hospitalization for the following reasons: NSTEMI, hypoxia, IV diuresis Time Spent With Patient Time: Total time managing care of this patient today _35___ minutes. Quality Stroke Does the patient have a stroke diagnosis?: No VTE Prior VTE?: No VTE Risk Level:: Medical - moderate - high VTE Device Contraindication: Treatment Not Indicated VTE Drug Contraindication: N/A - Med Ordered
[2022-07-17] MEDS: Aspirin 81 MG TAB.CHEW PO (11:36)
--- NOTE | 2022-07-17 13:57 | PC.NURSE ---
Jadon Santiago from pharmacy called with correction to Heparin gtt, per Jadon the draw for PTT HD this morning was done in error and the drip should have been adjusted per protocol on the 2nd draw which was 88.2 - as per pharmacy - Heparin adjusted to 9 units/kg/hr
[2022-07-17 17:52] LABS: PTT Heparin Drip 38.5 SEC (53-77.9)
[2022-07-17 23:38] LABS: PTT Heparin Drip 84.8 SEC (53-77.9)
[2022-07-18] VITALS (11 sets, daily range): BP systolic 104–132; BP diastolic 66–88; PULSE 52–97; RESP 16–24; TEMP 36–36.6; O2SAT 91–98
[2022-07-18 06:34] LABS: Hematocrit 37.4 % (37.0-47.0); Hemoglobin 12.4 g/dl (12.0-16.0); Mean Corpuscular HGB Conc 33.2 g/dl (31.0-35.0); Mean Corpuscular Hemoglobin 31.6 pg (27.0-33.0); Mean Corpuscular Volume 95.2 fL (80.0-98.0); Platelet Count 224 X10*3/uL (160-400); Red Blood Count 3.93 X10*6/uL (4.20-5.50); Red Cell Distribution Width 13.5 % (11.0-16.0); White Blood Count 13.7 X10*3/uL (4.8-10.8)
[2022-07-18 06:46] LABS: Anion Gap 15 (12-20); Blood Urea Nitrogen 34 mg/dL (9-16); Calcium 8.6 mg/dL (8.4-10.2); Carbon Dioxide 23 mmol/L (22-29); Chloride 100 mmol/L (96-108); Creatinine Clr Calc Pharmacy 32.4; Estimated Glomerular Filt Rate 43; Glucose Random 123 mg/dL (60-115); Magnesium 2.6 mg/dL (1.6-2.6); Potassium 3.9 mmol/L (3.3-5.1); Sodium 134 mmol/L (135-145)
[2022-07-18 06:48] LABS: PTT Heparin Drip 46.3 SEC (53-77.9)
[2022-07-18 06:51] LABS: B Type Natriuretic Peptide 1266 pg/mL (<100)
[2022-07-18] MEDS: lisinopriL 40 MG TABLET PO (08:09)
[2022-07-18] MEDS: Multivitamin TABLET 1 TAB PO (08:09)
[2022-07-18] MEDS: Aspirin 81 MG TAB.CHEW PO (08:09)
[2022-07-18] MEDS: methylPREDNISolone Sod Succ 125 MG/2 ML VIAL 40 MG IVPUSH ×2 (08:10→21:48)
--- NOTE | 2022-07-18 10:27 | HO.PM.IMPN ---
Subjective Subjective Date of Service: 07/18/22 Interval History: no chest pain dyspnea improving wheezing largely resolved no leg edema Review of Systems Review of Systems: Yes all other systems are reviewed and are negative Physical Exam Vital Signs: Vital Signs: Last Vital Signs Temp 97.4 F 07/18/22 07:49 Pulse 93 07/18/22 08:52 Resp 18 07/18/22 08:52 BP 111/74 07/18/22 07:49 Pulse Ox 97 07/18/22 07:49 O2 Del Method 07/18/22 07:49 O2 Flow Rate 3 07/18/22 07:49 Oxygen Flow Rate 3 07/16/22 10:59 BMI result Body Mass Index 28.3 Gen: in no acute distress HEENT: sclera anicteric, moist mucus membranes Neck: supple Lungs: scattered expiratory wheezing Heart: regular rate and rhythm, no murmurs Abd: soft, non-tender, non-distended Ext: no edema Skin: warm/well-perfused Neuro: alert and oriented x3, no focal findings Psych: appropriate affect Objective Data Active Medications Acetaminophen (Acetaminophen 325 Mg Tablet) 650 mg PO Q6H PRN PRN Reason: Pain, Mild (Pain Scale 1-3) Albuterol Sulfate (Albuterol Sulfate (0.083%) 2.5 Mg/3 Ml Vial.Neb) 2.5 mg INHALE Q2H PRN PRN Reason: Shortness of Breath/Wheezing Albuterol Sulfate (Albuterol Sulfate 90 Mcg 8 Gm Inhaler) 2 puff INHALE QID PRN PRN Reason: Shortness Of Breath Or Wheezing Albuterol/Ipratropium (Albuterol/Iprat 2.5/0.5mg 3 Ml Ampul.Neb) 3 ml INHALE RQ4H WHILE AWAKE [facility] Last Admin: 07/18/22 08:49 Dose: 3 ml Documented By: STEWART Albuterol/Ipratropium (Albuterol/Iprat 2.5/0.5mg 3 Ml Ampul.Neb) 1.5 ml INHALE Q6H PRN PRN Reason: Shortness Of Breath Or Wheezing Aspirin (Aspirin 81 Mg Tab.Chew) 81 mg PO DAILY [facility] Last Admin: 07/18/22 08:09 Dose: 81 mg Documented By: ELVIE Benzonatate (Benzonatate 100 Mg Capsule) 100 mg PO TID PRN PRN Reason: Cough Calcium Carbonate (Calcium Carbonate 500 Mg Tablet) 500 mg PO BID [facility] Last Admin: 07/18/22 08:09 Dose: 500 mg Documented By: ELVIE Docusate Sodium (Docusate Sodium 100 Mg Capsule) 100 mg PO BID PRN PRN Reason: constipation Fluticasone Propionate (Fluticasone Propionate Nasal 16 Gm [place]) 1 spray NOSTRIL-B BID [facility] Last Admin: 07/18/22 10:21 Dose: Not Given Documented By: ELVIE Non-Admin Reason: Med Not Available Fluticasone/Vilanterol (Fluticasone/Vilanterol 100/25 Blst.W.Dev) 1 puff INHALE RDAILY [facility] Last Admin: 07/17/22 12:18 Dose: 1 puff Documented By: STEWART Comments: given 1200 after delivery by pharmacy. Furosemide (Furosemide 20 Mg/2 Ml Vial) 40 mg IVPUSH BID@0900,1800 [facility]; Protocol Last Admin: 07/18/22 08:10 Dose: 40 mg Documented By: ELVIE Guaifenesin (Guaifenesin 200 Mg/10 Ml 10 Ml Liquid) 10 ml PO Q4H PRN PRN Reason: Cough Last Admin: 07/18/22 05:57 Dose: 10 ml Documented By: JORI Heparin Sodium (Porcine) (Heparin Sodium,Porcine 5,000 Unit/Ml Vial) 2,600 unit 40 unit/kg (2600 unit) IVPUSH PROTOCOL BOLUS PRN; Protocol PRN Reason: 40 unit/kg - Heparin Protocol Last Admin: 07/18/22 07:33 Dose: 2,600 unit Documented By: ELVIE Heparin Sodium (Porcine) (Heparin Sodium,Porcine 5,000 Unit/Ml Vial) 5,300 unit 80 unit/kg (5300 unit) IVPUSH PROTOCOL BOLUS PRN; Protocol PRN Reason: 80 unit/kg - Heparin Protocol Heparin Sodium/Sodium Chloride (Heparin Sodium,Porcine/1/2ns) 25,000 unit in 250 mls @ 0 mls/hr IVCONT .Q0M [facility]; Protocol Last Titration: 07/18/22 07:34 Dose: 11 units/kg/hr, 7.25 mls/hr Documented By: ELVIE Co-signed By: HO.NAUMOC Lisinopril (Lisinopril 40 Mg Tablet) 40 mg PO DAILY [facility]; Protocol Last Admin: 07/18/22 08:09 Dose: 40 mg Documented By: ELVIE Loratadine (Loratadine 10 Mg Tablet) 10 mg PO BEDTIME [facility] Last Admin: 07/17/22 21:19 Dose: 10 mg Documented By: JORI Magnesium Oxide (Magnesium Oxide 400 Mg Tablet) 400 mg PO BEDTIME [facility] Last Admin: 07/17/22 21:22 Dose: 400 mg Documented By: JORI Methylprednisolone Sodium Succinate (Methylprednisolone Sod Succ 125 Mg/2 Ml Vial) 40 mg IVPUSH Q12H [facility] Last Admin: 07/18/22 08:10 Dose: 40 mg Documented By: ELVIE Multivitamins/Vitamin C (Multivitamin Tablet) 1 tab PO DAILY [facility] Last Admin: 07/18/22 08:09 Dose: 1 tab Documented By: ELVIE Ondansetron HCl (Ondansetron Hcl 4 Mg/2 Ml Vial) 4 mg IVPUSH Q8H PRN PRN Reason: Nausea and Vomiting Oseltamivir Phosphate (Oseltamivir Phosphate 30 Mg Capsule) 30 mg PO Q12H [facility] Stop: 07/21/22 06:01 Last Admin: 07/18/22 05:57 Dose: 30 mg Documented By: JORI Pharmacy Consult (Consult Rx Perform Med Rec) 1 each MISCELLANE ONCE PRN PRN Reason: Consult order Pravastatin Sodium (Pravastatin Sodium 20 Mg Tablet) 20 mg PO BEDTIME [facility] Last Admin: 07/17/22 21:18 Dose: 20 mg Documented By: JORI Sodium Chloride (0.9 % Sodium Chloride Flush 3 Ml Syringe) 3 ml IVFLUSH QSHIFT [facility] Last Admin: 07/18/22 08:11 Dose: 3 ml Documented By: ELVIE Vitamin D (Cholecalciferol (Vitamin D3) 25 Mcg Tablet) 50 mcg PO BEDTIME [facility] Last Admin: 07/17/22 21:18 Dose: 50 mcg Documented By: JORI Labs CBC & Chem 7: 07/18/22 06:12 07/18/22 06:12 Labs: Laboratory Results - last 24 hr 07/17/22 07/17/22 07/17/22 10:28 17:31 23:19 MCV MCH MCHC RDW Plt Count MPV Absolute Nucleated RBC Nucleated RBC % (auto) aPTT Heparin Protocol 88.2 H D 38.5 L D 84.8 H D Anion Gap Estim Creat Clear Calc Estimated GFR Random Glucose Calcium Magnesium Total Creatine Kinase B-Natriuretic Peptide 07/18/22 07/18/22 07/18/22 06:12 06:12 06:12 MCV 95.2 MCH 31.6 MCHC 33.2 RDW 13.5 Plt Count 224 MPV 10.0 Absolute Nucleated RBC 0.000 Nucleated RBC % (auto) 0.0 aPTT Heparin Protocol Anion Gap 15 Estim Creat Clear Calc 32.4 Estimated GFR 43 Random Glucose 123 H Calcium 8.6 Magnesium 2.6 Total Creatine Kinase 1085 H B-Natriuretic Peptide 1266 H 07/18/22 06:12 MCV MCH MCHC RDW Plt Count MPV Absolute Nucleated RBC Nucleated RBC % (auto) aPTT Heparin Protocol 46.3 L D Anion Gap Estim Creat Clear Calc Estimated GFR Random Glucose Calcium Magnesium Total Creatine Kinase B-Natriuretic Peptide Microbiology Microbiology Results: Microbiology 07/16/22 11:58 Blood Culture - Preliminary Blood - Venous No growth after 24 hours. 07/16/22 11:40 Blood Culture - Preliminary Blood - Venous No growth after 24 hours. Assessment and Plan (1) Influenza A: Status: Acute Plan d#3 77yo F with CHF, pHTN, COPD with chronic hypoxic RF on 1-2L O2 via NC, HTN, SSS s/p PPM, JEIMY admitted for CHF exacerbation, COPD exacerbation, influenza A, and NSTEMI # NSTEMI - demand ischemia? influenza myocarditis? ACS? on heparin gtt and Cardiology following. TTE today and if has RMWAs will need to go to [facility] for cardiac cath. continue ASA # COPD exacerbation - IV methylprednisolone d#3, standing/prn nebs, continue ICS/LABA controller # acute-chronic HFpEF - continue IV furosemide 40 mg bid - negative 1.3L cumulatively this admission - monitor BNP/BMP/I+O, TTE # influenza - oseltamivir d#3/5; no signs of bacterial superinfection # elevated CPK - due to influenza- myositis? monitor- improving. no fluids as not rhabdo and pt is volume-overloaded # acute/chronic hypoxic resp failure - wean O2 as tolerated- currently on 2.5L O2 # HTN - continue lisinopril # VTE ppx: heparinization In my clinical judgment, the patient requires continued inpatient hospitalization for the following reasons: NSTEMI, hypoxia, IV diuresis Time Spent With Patient Time: Total time managing care of this patient today ____ minutes. Quality Stroke Does the patient have a stroke diagnosis?: No VTE Prior VTE?: No VTE Risk Level:: Medical - moderate - high VTE Device Contraindication: Treatment Not Indicated VTE Drug Contraindication: N/A - Med Ordered
--- NOTE | 2022-07-18 11:10 | PM.PNCARD ---
Subjective Subjective Date of Service: 07/18/22 Interval history: Seen examined at bedside. Feeling better. No chest discomfort. Physical Exam Vital Signs: Last Vital Signs Temp 97.4 F 07/18/22 07:49 Pulse 93 07/18/22 08:52 Resp 18 07/18/22 08:52 BP 111/74 07/18/22 07:49 Pulse Ox 97 07/18/22 07:49 O2 Del Method 07/18/22 07:49 O2 Flow Rate 3 07/18/22 07:49 Oxygen Flow Rate 3 07/16/22 10:59 BMI result Body Mass Index 28.3 GENERAL APPEARANCE: in no acute distress, pleasant. On supplemental oxygen NECK: no carotid bruit, no obvious jugular venous distention. SKIN: no suspicious lesions, warm and dry. HEART: no murmurs, regular rate and rhythm. LUNGS: Clear to auscultation. ABDOMEN: soft, nontender. EXTREMITIES: no edema. PERIPHERAL PULSES: equal. NEUROLOGIC: No gross deficits, AAO X 3 Objective Labs and Meds Result diagrams: 07/18/22 06:12 07/18/22 06:12 Lab results: Laboratory Results - last 24 hr 07/17/22 07/17/22 07/18/22 17:31 23:19 06:12 WBC RBC Hgb Hct MCV MCH MCHC RDW Plt Count MPV Absolute Nucleated RBC Nucleated RBC % (auto) aPTT Heparin Protocol 38.5 L D 84.8 H D Sodium 134 L Potassium 3.9 Chloride 100 Carbon Dioxide 23 Anion Gap 15 BUN 34 H D Creatinine 1.21 Estim Creat Clear Calc 32.4 Estimated GFR 43 Random Glucose 123 H Calcium 8.6 Magnesium 2.6 Total Creatine Kinase 1085 H B-Natriuretic Peptide 07/18/22 07/18/22 07/18/22 06:12 06:12 06:12 WBC 13.7 H RBC 3.93 L Hgb 12.4 Hct 37.4 MCV 95.2 MCH 31.6 MCHC 33.2 RDW 13.5 Plt Count 224 MPV 10.0 Absolute Nucleated RBC 0.000 Nucleated RBC % (auto) 0.0 aPTT Heparin Protocol 46.3 L D Sodium Potassium Chloride Carbon Dioxide Anion Gap BUN Creatinine Estim Creat Clear Calc Estimated GFR Random Glucose Calcium Magnesium Total Creatine Kinase B-Natriuretic Peptide 1266 H Progress Note: A&P Assessment and plan (1) CHF (congestive heart failure): Status: Acute (2) Elevated troponin: Status: Acute Plan Pleasant 77-year-old female with known history of diastolic heart failure and previous permanent pacemaker presenting for influenza a and dyspnea. Clinically was in heart failure. She is on Tamiflu and diuretics. Overall clinically improving. I think she can be changed to oral diuretics tomorrow 40 mg twice a day. She had elevated troponin and precordial T-wave inversions. She has known right bundle-branch block. She has been on heparin drip. We will check echocardiogram to assess for wall motion abnormalities. If she has obvious wall motion abnormalities then I would consider transferring her to [facility] for cardiac catheterization under [facility]. If wall motion is normal then this could be related to congestive heart failure and in that scenario I would stop happen in 48 hours and let her have further workup with [facility] as outpatient. Thank you for allowing me to participate in the care of your patient. Please feel free to contact me if you have any questions. Time Spent With Patient Time: Total time managing care of this patient today ____ minutes. Progress Note: Quality Stroke Does the patient have a stroke diagnosis?: No Procedures Date of Service Date of Service: 07/18/22
[2022-07-18 13:59] LABS: PTT Heparin Drip 91.4 SEC (53-77.9)
[2022-07-18] MEDS: Furosemide 40 MG TABLET PO (17:47)
[2022-07-18 20:51] LABS: PTT Heparin Drip 50.4 SEC (53-77.9)
--- NOTE | 2022-07-19 | ECG_ITS ---
Test Reason : HIGH TRIPONIN Blood Pressure : / mmHG Vent. Rate : 097 BPM Atrial Rate : 097 BPM P-R Int : 248 ms QRS Dur : 160 ms QT Int : 424 ms P-R-T Axes : 074 -74 -80 degrees QTc Int : 538 ms Sinus rhythm with 1st degree A-V block Possible Left atrial enlargement Right bundle branch block Left anterior fascicular block Bifascicular block T wave abnormality, consider inferolateral ischemia Abnormal ECG When compared with ECG of 16-JUL-2022 11:12, No significant change was found Referred By: Kelvin Oscar Electronically Signed By:KELVIN OSCAR MD
[2022-07-19 03:24] LABS: PTT Heparin Drip 91.3 SEC (53-77.9)
[2022-07-19 03:41] LABS: B Type Natriuretic Peptide 1277 pg/mL (<100)
[2022-07-19 03:51] VITALS: BP 128/80; PULSE 90; RESP 20; TEMP 35.9; O2SAT 97
[2022-07-19 03:55] LABS: Anion Gap 16 (12-20); Blood Urea Nitrogen 37 mg/dL (9-16); Calcium 8.8 mg/dL (8.4-10.2); Carbon Dioxide 22 mmol/L (22-29); Chloride 99 mmol/L (96-108); Creatinine Clr Calc Pharmacy 32.4; Estimated Glomerular Filt Rate 43; Glucose Random 122 mg/dL (60-115); Magnesium 2.4 mg/dL (1.6-2.6); Potassium 4.3 mmol/L (3.3-5.1); Sodium 133 mmol/L (135-145)
[2022-07-19 07:37] VITALS: PULSE 94; RESP 18; O2SAT 95
[2022-07-19 08:00] VITALS: BP 117/69; PULSE 96; RESP 20; TEMP 36.2; O2SAT 97
[2022-07-19] MEDS: methylPREDNISolone Sod Succ 125 MG/2 ML VIAL 40 MG IVPUSH (08:25)
[2022-07-19] MEDS: lisinopriL 40 MG TABLET PO (08:25)
[2022-07-19] MEDS: Aspirin 81 MG TAB.CHEW PO (08:25)
[2022-07-19] MEDS: Furosemide 40 MG TABLET PO (08:31)
[2022-07-19] MEDS: Multivitamin TABLET 1 TAB PO (08:34)
--- NOTE | 2022-07-19 10:17 | ECG_ITS ---
Test Reason : high troponins Blood Pressure : / mmHG Vent. Rate : 099 BPM Atrial Rate : 099 BPM P-R Int : 236 ms QRS Dur : 150 ms QT Int : 346 ms P-R-T Axes : 067 -42 -72 degrees QTc Int : 444 ms Sinus rhythm with 1st degree A-V block with Premature ventricular complexes Left axis deviation Right bundle branch block T wave abnormality, consider inferolateral ischemia Abnormal ECG When compared with ECG of 16-JUL-2022 12:22, Aberrant conduction is now Present QT has shortened Referred By: Kelvin Oscar Electronically Signed By:KELVIN OSCAR MD
[2022-07-19 10:23] LABS: PTT Heparin Drip 55.4 SEC (53-77.9)
--- NOTE | 2022-07-19 10:25 | PM.PNCARD ---
Subjective Subjective Date of Service: 07/19/22 Principal diagnosis: CHF, NSTEMI Interval history: Patient underwent echocardiogram which shows severely reduced LV ejection fraction of 25-30% with multiple regional wall motion abnormality which could represent stress-induced cardiomyopathy. She denies any chest pain. EKG is not available for review. Patient persistently heart rate of 90 beats per minute. Pacemaker evaluated bedside shows normally function single-chamber pacemaker. She says her breathing is better and been diuresing well. Overall negative balance of 1.8 L. Review of Systems Constitutional: Reports weakness Eyes: Reports no additional eye complaints Reports system reviewed and no additional complaints, except as documented Cardiovascular: Denies chest pain, Denies syncope, Denies rapid heart rate, Denies leg edema, Denies lightheadedness and Reports dyspnea Respiratory: Reports no additional respiratory complaints and Reports dyspnea Gastrointestinal: Reports no additional gastrointestinal complaints Reports system reviewed and no additional complaints, except as documented, Denies syncope and Reports weakness Endocrine: Reports no additional endocrine complaints Hematologic/Lymphatic: Reports no additional hematologic/lymphatic complaints Physical Exam Vital Signs: Last Vital Signs Temp 97.1 F 07/19/22 08:00 Pulse 96 07/19/22 08:00 Resp 20 07/19/22 08:00 BP 117/69 07/19/22 08:00 Pulse Ox 97 07/19/22 08:00 O2 Del Method 07/19/22 08:00 O2 Flow Rate 3 07/19/22 08:00 Oxygen Flow Rate 3 07/16/22 10:59 BMI result Body Mass Index 28.3 Const General: cooperative, comfortable, alert and awake Nutritional Appearance: overweight Orientation/consciousness: patient oriented x3 Neck Neck: Yes trachea midline, Yes supple and Yes no JVD Resp Effort & Inspection: normal respiratory effort Auscultation: wheezes lower bilaterally Cardio Palpation: normal PMI Rate: regular rate Rhythm: regular rhythm Heart sounds: S1 normal heart sound present, S2 normal heart sound present, no click, no gallops and no murmurs GI Auscultation: normal bowel sounds Skin General skin exam: no rashes or lesions noted Neuro General: patient oriented x3 and no focal motor deficits Extrem General: Yes no clubbing, cyanosis or edema Objective Labs and Meds Result diagrams: 07/18/22 06:12 07/19/22 03:06 Lab results: Laboratory Results - last 24 hr 12/07/18/22 07/19/22 13:43 20:34 03:06 aPTT Heparin Protocol 91.4 H D 50.4 L D 91.3 H D Sodium Potassium Chloride Carbon Dioxide Anion Gap BUN Creatinine Estim Creat Clear Calc Estimated GFR Random Glucose Calcium Magnesium Total Creatine Kinase B-Natriuretic Peptide 07/19/22 07/19/22 03:06 03:06 aPTT Heparin Protocol Sodium 133 L Potassium 4.3 Chloride 99 Carbon Dioxide 22 Anion Gap 16 BUN 37 H Creatinine 1.21 Estim Creat Clear Calc 32.4 Estimated GFR 43 Random Glucose 122 H Calcium 8.8 Magnesium 2.4 Total Creatine Kinase 612 H B-Natriuretic Peptide 1277 H Progress Note: A&P Assessment and plan (1) Acute systolic heart failure: Status: Acute Assessment and Plan: Patient presents with worsening shortness of breath and found to be in heart failure with echocardiogram showing severe LV systolic dysfunction with LVEF of 25-30% with multiple regional wall motion abnormality. Possibilities of underlying progressive coronary artery disease with plaque rupture in the LAD territory versus stress-induced cardiomyopathy side. Clinically heart failure seems to have improved. Continue IV diuresis with Lasix for 1 more day. Continue lisinopril therapy. Can add low-dose metoprolol therapy and gingerly up titrate depending on how she tolerates both from heart failure as well as bronchospastic perspective. Add spironolactone 12.5 mg to her regimen. Heart failure management was discussed. Patient require cardiac catheterization given her marked LV systolic dysfunction with regional wall motion abnormality to rule out significant coronary artery disease and to evaluate hemodynamics and further guide treatment. Discussed with patient about the need for management and transfer to [facility] for cardiac catheterization. She agrees and understands. Risks, benefits, alternatives were discussed with her. Will reach out to her primary research librarian 's office to arrange for the transfer. (2) Cardiac pacemaker in situ: Status: Acute Assessment and Plan: Cardiac pacemaker in-situ which is single-chamber device for unclear reason in VVI at 60 beats per minute. Ventricular pacing about 13% time. Pacemaker function is adequate. Pace maker ventricular thresholds reprogrammed to enhance battery life. Pacing lead impedance is stable. Battery life is excellent. Thank you for allowing me to partake in the care Time Spent With Patient Time: Total time managing care of this patient today ____ minutes. Progress Note: Quality Stroke Does the patient have a stroke diagnosis?: No Procedures Date of Service Date of Service: 07/19/22
[2022-07-19 11:19] VITALS: BP 136/79; PULSE 96; RESP 20; TEMP 36.2; O2SAT 93
[2022-07-19 11:55] VITALS: PULSE 92; RESP 18; O2SAT 95
--- NOTE | 2022-07-19 13:02 | PM.DS ---
DS: Providers Provider Date of Service: 07/19/22 Date of admission: 07/16/22 14:43 Date of discharge: 07/19/22 Primary care physician: Freida Yarbrough MD Consults: 07/16/22 15:28 Consult to Cardiology Routine Consulting Provider: Sunil oCto Reason for consultation: elevated trop, chf DS: Diagnosis Discharge Diagnosis (1) Acute systolic heart failure: Status: Acute (2) Cardiac pacemaker in situ: Status: Acute DS: Summary Hospital Course Hospital Course: 77 year old female with history HFpEF, pulmonary hypertension, COPD with chronic hypoxic respiratory failure on 1-2 L supplemental O2 at baseline, hypertension, hyperlipidemia, history of Meniere's disease, osteoporosis on Reclast, JEIMY, sick sinus syndrome s/p pacemaker placement, and chronic hyponatremia presented to the ED this morning for evaluation of worsening shortness of breath ongoing for 1 month.? States primarily dyspnea on exertion as well as orthopnea/PND.? Has been needing 3 L supplemental O2. There has also been cough, nonproductive. Has been prescribed multiple courses steroids PO and antibiotics with short-lived relief of symptoms. Denies sick contacts. No fevers, chills, sore throat, nasal congestion, abd pain, n/v, diarrhea, chest pain.? Yesterday was febrile at walk-in at 100.6 but has been afebrile since.? Mildly tachycardic at 109 on arrival and tachypneic to 24.? 87% oximetry on room air, placed on 3 L via nasal cannula.? No leukocytosis.? Renal function and electrolyte levels baseline except for mild hyponatremia 132.? Lactic acid 2.6, repeat lactic acid.? Total CK 979.? Troponin > 3600, BNP 2900.? Positive for influenza a, negative for COVID-19 and RSV.? Chest x-ray showing nonspecific patchy airspace disease at both perihilar and lower lung field possibly representing pneumonia versus pulmonary venous congestion or combination thereof.? Subsequent chest CTA negative for PE.? There is extensive emphysematous disease with predominant involvement of both upper lobes and presence of moderate cardiomegaly and likely mild pulmonary venous congestion.? Patient noted to be in congestive heart failure with elevated cardiac enzymes, started on heparin drip per protocol after discussion with Cardiology.? She was also given 1 g ceftriaxone, 125 mg methylprednisolone, 40 mg furosemide, and 2 g magnesium. Hospital course Patient admitted to telemetry and placed on heparin drip. Seen in consultation by Cardiology; 2D echo done demonstrating wall motion abnormalities. The (see cardiology note for details). Patient remained chest pain free during hospitalization and will be transferred to [facility] for cardiac catheterization. She remains on heparin drip Time Spent with Patient Time attestation: Total time managing care of this patient today ____ minutes. Discharge coordination time: Greater than 30 minutes Quality: Safe Use of Opioids Does Pt have an Active Cancer Diagnosis on the Problem List?: No Quality: Stroke Does the patient have a stroke diagnosis?: No Physical Exam Vital Signs: Vital Signs: Last Vital Signs Temp 97.2 F 07/19/22 11:19 Pulse 92 07/19/22 11:55 Resp 18 07/19/22 11:55 BP 136/79 07/19/22 11:19 Pulse Ox 93 07/19/22 11:19 O2 Del Method 07/19/22 11:19 O2 Flow Rate 3 07/19/22 11:19 Oxygen Flow Rate 3 07/16/22 10:59 BMI result Body Mass Index 28.3 Const: Other: Awake no acute distress Resp: Other: Clear to auscultation bilaterally no rales rhonchi or wheezes Cardio: Other: No S4; positive S1-S2; no S3 murmurs rubs or gallops GI: Other: Soft nontender nondistended normoactive bowel sounds Neuro: Other: Cranial nerves 2-12 grossly intact as tested. Moves all extremities with equal power. Sensation is intact. Cognition appropriate Extrem: Other: No edema DS: Data Data Completed and Pending Labs on day of discharge: Laboratory Results - last 24 hr 07/18/22 07/18/22 07/19/22 13:43 20:34 03:06 aPTT Heparin Protocol 91.4 H D 50.4 L D 91.3 H D Sodium Potassium Chloride Carbon Dioxide Anion Gap BUN Creatinine Estim Creat Clear Calc Estimated GFR Random Glucose Calcium Magnesium Total Creatine Kinase B-Natriuretic Peptide 07/19/22 07/19/22 07/19/22 03:06 03:06 09:46 aPTT Heparin Protocol 55.4 D Sodium 133 L Potassium 4.3 Chloride 99 Carbon Dioxide 22 Anion Gap 16 BUN 37 H Creatinine 1.21 Estim Creat Clear Calc 32.4 Estimated GFR 43 Random Glucose 122 H Calcium 8.8 Magnesium 2.4 Total Creatine Kinase 612 H B-Natriuretic Peptide 1277 H Preliminary micro results at discharge 07/16/22 11:58 Blood Culture - Preliminary Blood - Venous No growth after 48 hours. 07/16/22 11:40 Blood Culture - Preliminary Blood - Venous No growth after 48 hours. Discharge Plan Discharge Anticipated Discharge Date/Time: 07/19/22 12:57 Patient Disposition: Xfer Acute Care Hospital Discharge Diagnosis: Acute systolic heart failure Referrals: Freida Yarbrough MD [Primary Care Provider] - 1 Week Discharge Medications: New heparin(porcine) in 0.45% NaCl 25,000 unit/250 mL Parenteral Solution 25,000 unit continuous IV infusion .Q0M Qty: 6000 0RF oseltamivir 30 mg Capsule 30 mg PO Q12H Qty: 5 0RF aspirin 81 mg Tablet,Chewable 81 mg PO DAILY Qty: 30 0RF furosemide 40 mg Tablet 40 mg PO BID@0900,1800 Qty: 60 0RF Protocol: Hold for SBP< HOLD for SBP < : 90 Continued cetirizine 10 mg tablet 10 mg PO BEDTIME fluticasone propion-salmeterol 250-50 mcg/dose blister with device 1 inh PO Q12H albuterol sulfate 90 mcg/actuation HFA aerosol inhaler 2 puff inhalation QID PRN (Reason: Shortness Of Breath Or Wheezing) furosemide 20 mg Tablet 20 mg PO DAILY@1700 furosemide 20 mg Tablet 20 mg PO BEDTIME PRN (Reason: Edema) furosemide 40 mg tablet 40 mg PO DAILY ipratropium-albuterol 0.5 mg-3 mg(2.5 mg base)/3 mL solution for nebulization 1.5 ml inhalation Q6H PRN (Reason: Shortness Of Breath Or Wheezing) pravastatin 20 mg tablet 20 mg PO BEDTIME azithromycin 250 mg Tablet 250 mg PO DAILY Rx Instructions: FOR 3 MORE DAYS (LAST DOSE WILL BE TAKEN 07/19/22) multivitamin Tablet 1 tab PO DAILY calcium carbonate [Calcium 600] 600 mg calcium (1,500 mg) Tablet 600 mg PO BID fluticasone propionate 50 mcg/actuation [place],Suspension 1 spray INTRANASAL BID Rx Instructions: administer into each nostril magnesium 200 mg Tablet 400 mg PO BEDTIME cholecalciferol (vitamin D3) [Vitamin D3] 50 mcg (2,000 unit) Tablet 50 mcg PO BEDTIME lisinopril 40 mg tablet 40 mg PO DAILY Qty: 90 3RF Discharge Orders: Discharge Order (Routine); Ordered 07/19/22 Ordered By: Jed Beck Diet: Advance to usual diet Activity on Discharge: As tolerated Stand Alone Forms: Patient Portal Discharge page Care Plan Goals: Continue current therapies pending transfer to [facility] Health Concerns: Transfer to [facility] for cardiac catheterization Plan of Treatment: As outlined; changes made by receiving hospital team Assessment: See discharge summary
--- NOTE | 2022-07-19 13:09 | MHC.CM.PN ---
pt going to [facility] for cardiac cath
== END 2022-07-19 15:15 | disposition short-term general hospital (02) | DRG 193 ==
LOC: HO.ED 13:36 → HO.EDOVER 14:58 → HO.IMC 18:00
PROVIDERS: Family Medicine; Internal Medicine; Physician Assistant; Admitting Provider Physician Assistant; Emergency Provider Student in an Organized Health Care Education/Training Program; PCP Internal Medicine; Visit Provider Hospitalist
DX: J10.00 Influenza due to other identified influenza virus with unspecified type of pneumonia (principal); I21.4 Non-ST elevation (NSTEMI) myocardial infarction; I50.33 Acute on chronic diastolic (congestive) heart failure; J96.21 Acute and chronic respiratory failure with hypoxia; E87.1 Hypo-osmolality and hyponatremia; I51.81 Takotsubo syndrome; I11.0 Hypertensive heart disease with heart failure; I27.20 Pulmonary hypertension, unspecified; I49.5 Sick sinus syndrome; E78.5 Hyperlipidemia, unspecified; Z20.822 Contact with and (suspected) exposure to COVID-19; Z99.81 Dependence on supplemental oxygen; Z95.0 Presence of cardiac pacemaker; J43.9 Emphysema, unspecified; Z88.8 Allergy status to other drugs, medicaments and biological substances; M81.0 Age-related osteoporosis without current pathological fracture; G47.33 Obstructive sleep apnea (adult) (pediatric); Z79.899 Other long term (current) drug therapy
CPT/HCPCS: 0241U; 36415; 71045; 71275; 80048; 80053; 82550; 82803; 82947; 83605; 83735; 83880; 84484; 85025; 85027; 85379; 85610; 85730; 87040; 93005; 93306; 94640; 99284; J0696; J1940; J2930; J3475; Q9957; Q9967

== ENCOUNTER 2022-07-27 14:37 | Outpatient (REF) | payer MEDICARE, SELFPAY ==
[2022-07-27 16:31] LABS: MANUAL DIFF FLAG NO
[2022-07-27 16:41] LABS: Basophils Percent Auto 0.2 % (0-2); Eosinophils Absolute Auto 0.1 X10*3/uL (0.0-0.4); Eosinophils Percent Auto 0.5 % (0-4); Hematocrit 31.8 % (37.0-47.0); Hemoglobin 10.4 g/dl (12.0-16.0); Imm Gran Abs Auto 0.11 X10*3/uL (0.00-0.03); Imm Gran Pct Auto 0.8 % (0.0-0.4); Lymphocytes Absolute Auto 1.3 X10*3/uL (1.2-4.9); Lymphocytes Percent Auto 9.3 % (20-40); Mean Corpuscular HGB Conc 32.7 g/dl (31.0-35.0); Mean Corpuscular Hemoglobin 31.9 pg (27.0-33.0); Mean Corpuscular Volume 97.5 fL (80.0-98.0); Mean Platelet Volume 9.8 fL (9.4-12.3); Monocytes Absolute Auto 0.8 X10*3/uL (0.1-1.2); Monocytes Percent Auto 5.9 % (2-11); Neutrophils Absolute Auto 11.6 x10*3/uL (2.0-8.3); Neutrophils Percent Auto 83.3 % (45-73); Platelet Count 380 X10*3/uL (160-400); Red Blood Count 3.26 X10*6/uL (4.20-5.50)
[2022-07-27 17:21] LABS: Alanine Aminotransferase 37 U/L (0-31); Albumin Level 3.6 g/dL (3.5-5.0); Alkaline Phosphatase 65 U/L (39-117); Anion Gap 13 (12-20); Aspartate Amino Transferase 35 U/L (5-31); Blood Urea Nitrogen 17 mg/dL (9-16); Calcium 9.3 mg/dL (8.4-10.2); Carbon Dioxide 26 mmol/L (22-29); Chloride 97 mmol/L (96-108); Estimated Glomerular Filt Rate 49; Glucose Random 118 mg/dL (60-115); Iron 80 mcg/dL (30-160); Percent Iron Saturation 30 % (15-50); Potassium 4.3 mmol/L (3.3-5.1); Sodium 132 mmol/L (135-145); Total Iron Binding Capacity 268 mcg/dL (228-428); Total Protein 6.3 g/dL (6.5-8.0); Unsaturated Iron Binding 188 ug/dL
[2022-07-27 19:07] LABS: B Type Natriuretic Peptide 2125 pg/mL (<100)
== END 2022-07-27 14:38 | disposition home or self-care (01) ==
LOC: HO.HMGCLDS 14:37
PROVIDERS: PCP Internal Medicine; Visit Provider Internal Medicine
DX: J44.9 Chronic obstructive pulmonary disease, unspecified (principal); I42.9 Cardiomyopathy, unspecified; N19 Unspecified kidney failure; D64.9 Anemia, unspecified
CPT/HCPCS: 36415; 80053; 83540; 83735; 83880; 85025

== ENCOUNTER 2022-08-10 07:16 | Outpatient (REF) | payer MEDICARE, SELFPAY ==
[2022-08-10 11:45] LABS: MANUAL DIFF FLAG NO
[2022-08-10 11:49] LABS: Basophils Percent Auto 0.5 % (0-2); Eosinophils Absolute Auto 0.1 X10*3/uL (0.0-0.4); Eosinophils Percent Auto 2.2 % (0-4); Hematocrit 33.4 % (37.0-47.0); Imm Gran Abs Auto 0.04 X10*3/uL (0.00-0.03); Imm Gran Pct Auto 0.7 % (0.0-0.4); Lymphocytes Absolute Auto 1.5 X10*3/uL (1.2-4.9); Lymphocytes Percent Auto 24.7 % (20-40); Mean Corpuscular HGB Conc 32.9 g/dl (31.0-35.0); Mean Corpuscular Hemoglobin 32.4 pg (27.0-33.0); Mean Corpuscular Volume 98.2 fL (80.0-98.0); Mean Platelet Volume 9.1 fL (9.4-12.3); Monocytes Absolute Auto 0.4 X10*3/uL (0.1-1.2); Monocytes Percent Auto 7.4 % (2-11); Neutrophils Absolute Auto 3.8 x10*3/uL (2.0-8.3); Neutrophils Percent Auto 64.5 % (45-73); Platelet Count 448 X10*3/uL (160-400); Red Cell Distribution Width 15.8 % (11.0-16.0); White Blood Count 5.9 X10*3/uL (4.8-10.8)
[2022-08-10 12:26] LABS: Alanine Aminotransferase 20 U/L (0-31); Albumin Level 3.4 g/dL (3.5-5.0); Alkaline Phosphatase 65 U/L (39-117); Anion Gap 15 (12-20); Aspartate Amino Transferase 23 U/L (5-31); Bilirubin Total 0.6 mg/dL (0.0-1.0); Blood Urea Nitrogen 22 mg/dL (9-16); Calcium 9.5 mg/dL (8.4-10.2); Carbon Dioxide 25 mmol/L (22-29); Chloride 97 mmol/L (96-108); Estimated Glomerular Filt Rate > 60; Glucose Random 92 mg/dL (60-115); Potassium 4.5 mmol/L (3.3-5.1); Sodium 132 mmol/L (135-145); Total Protein 6.4 g/dL (6.5-8.0)
[2022-08-10 12:38] LABS: Folate 15.1 ng/mL (> or = 4.0); Vitamin B12 1854 pg/mL (200-900)
== END 2022-08-10 07:17 | disposition home or self-care (01) ==
LOC: HO.HMGCLDS 07:16
PROVIDERS: PCP Internal Medicine; Visit Provider Internal Medicine
DX: D64.9 Anemia, unspecified (principal); N19 Unspecified kidney failure; I42.9 Cardiomyopathy, unspecified; E87.1 Hypo-osmolality and hyponatremia
CPT/HCPCS: 36415; 80053; 82607; 82746; 85025

== ENCOUNTER → 2022-08-15 12:13 | Outpatient (BNVA) | payer MEDICARE, SELFPAY | PROVIDERS: PCP Internal Medicine; Referring Provider Internal Medicine; Visit Provider Internal Medicine Cardiovascular Disease | DX: I42.9 Cardiomyopathy, unspecified (principal); J44.9 Chronic obstructive pulmonary disease, unspecified; Z99.81 Dependence on supplemental oxygen | CPT/HCPCS: 99212 ==

== ENCOUNTER 2022-08-30 11:56 | Outpatient (REF) | payer MEDICARE, SELFPAY ==
[2022-08-30 13:53] LABS: MANUAL DIFF FLAG NO
[2022-08-30 13:59] LABS: Basophils Percent Auto 0.5 % (0-2); Eosinophils Absolute Auto 0.1 X10*3/uL (0.0-0.4); Eosinophils Percent Auto 0.8 % (0-4); Hematocrit 38.1 % (37.0-47.0); Hemoglobin 12.2 g/dl (12.0-16.0); Imm Gran Abs Auto 0.03 X10*3/uL (0.00-0.03); Imm Gran Pct Auto 0.4 % (0.0-0.4); Lymphocytes Absolute Auto 1.2 X10*3/uL (1.2-4.9); Lymphocytes Percent Auto 14.3 % (20-40); Mean Platelet Volume 9.9 fL (9.4-12.3); Monocytes Absolute Auto 0.5 X10*3/uL (0.1-1.2); Monocytes Percent Auto 6.3 % (2-11); Neutrophils Absolute Auto 6.6 x10*3/uL (2.0-8.3); Neutrophils Percent Auto 77.7 % (45-73); Platelet Count 276 X10*3/uL (160-400); Red Blood Count 3.81 X10*6/uL (4.20-5.50); Red Cell Distribution Width 14.8 % (11.0-16.0); White Blood Count 8.5 X10*3/uL (4.8-10.8)
[2022-08-30 14:01] LABS: Appearance Urine Clear; Color Urine Yellow; Glucose Urine UA Negative (Negative); Leukocyte Esterase Urine Trace (Negative); Nitrite Urine Negative (Negative); PH 5.5 (5.0-9.0); Specific Gravity - Urine 1.015 (1.005-1.025); UMIC TRIGGER UACC YES; Urine Blood Negative (Negative); Urine Ketones Negative (Negative); Urine Protein Negative (Neg-Trace)
[2022-08-30 14:04] LABS: Bacteria Urine None Seen (None Seen); Hyaline Casts Urine 0-2 /LPF (0-2); RBC Urine 0-2 /HPF (0-2); Squamous Epithelial Cell Urine 0-2 /HPF (0-2); WBC Urine 0-5 /HPF (0-5)
[2022-08-30 14:11] LABS: Anion Gap 17 (12-20); Blood Urea Nitrogen 19 mg/dL (9-16); Calcium 9.2 mg/dL (8.4-10.2); Carbon Dioxide 23 mmol/L (22-29); Chloride 101 mmol/L (96-108); Estimated Glomerular Filt Rate > 60; Glucose Random 94 mg/dL (60-115); Potassium 3.8 mmol/L (3.3-5.1); Sodium 137 mmol/L (135-145)
[2022-08-30 14:23] LABS: B Type Natriuretic Peptide 730 pg/mL (<100)
== END 2022-08-30 11:57 | disposition home or self-care (01) ==
LOC: HO.HMGCLDS 11:56
PROVIDERS: PCP Internal Medicine; Visit Provider Internal Medicine
DX: D64.9 Anemia, unspecified (principal); I42.9 Cardiomyopathy, unspecified; E87.1 Hypo-osmolality and hyponatremia; I11.0 Hypertensive heart disease with heart failure; I50.9 Heart failure, unspecified; E78.5 Hyperlipidemia, unspecified; R30.0 Dysuria
CPT/HCPCS: 36415; 80048; 81001; 81003; 83880; 85025

== ENCOUNTER → 2022-09-23 09:04 | Outpatient (REF) | payer MEDICARE, SELFPAY ==
--- NOTE | 2022-09-23 09:07 | CA_ITS ---
Transthoracic Echocardiogram Patient (Last, First, Middle): Aylin Jauregui L Gender: Female Date of : 1945 Age: 77 Procedure Date: 09/23/2022 Procedure Type: Transthoracic Echocardiogram Location: OP Height: 152.4 cm Weight: 60.33 kg BSA: 1.57 m2 Heart Rate: 73 bpm BP: 135 / 80 mmHg Ice Cream Mixer: BETSEY Valdez MD: Sunil Coto MD Ecologist: Kelvin Oscar MD Symptoms: I42.9 - Cardiomyopathy, unspecified Study Quality: Fair ECG Rhythm: Sinus Conclusions: - Normal LV systolic function with LVEF of 55-60% with impaired relaxation filling pattern Findings Left Ventricle Normal left ventricular size, thickness, and systolic function. The visually estimated ejection fraction is between 55-60%. Spectral Doppler is indicative of an impaired relaxation filling pattern. E/E prime ratio is between 8 and 15 consistent with indeterminate filling pressures. Wall Motion Rest Echo Findings The basal inferior segment is hypokinetic. The basal inferoseptal segment is akinetic. All other scored wall segments showed normal motion. Tricuspid Valve Normal right atrial pressure. Venous The inferior vena cava is normal in size and collapses greater than 50% with inspiration. Prior Study Comparison Changes noted compared to prior study dated: 07/18/2022. LV systolic function is normalized Measurements 2D Linear Measurements IVSd: 1.15 0.6-0.9/0.6-1.0 cm LVIDd: 4.54 3.9-5.3/4.2-5.9 cm LVIDd Index: 2.89 2.4-3.2/2.2-3.1 cm/m2 LVIDs: 2.93 2.0-3.6 cm LVPWd: 1.08 0.7-1.1 cm LV Mass: 225.38 67-162/88-224 g LV Mass Index: 143.55 43-95/49-115 g/m2 LVOT Diam: 1.80 3.0+(-)1.3 cm 2D Systolic Function EF 4C: 60.60 >55% EF 2C: 52.30 >55% EF BiP: 55.00 >55% Mitral Valve MV Pk E: 0.93 MV PK A: 1.10 MV Decel Time: 298.00 E/A: 0.80 E'Lateral: 10.00 E'Medial: 5.11 E/E' Med: 18.20 E/E' Lat: 9.30 PHT: 87.00 MVA PHT: 2.53 Decel Boundary: 3.12 LVOT LVOT Pk Shamar: 0.99 LVOT Mn Shamar: 0.65 LVOT VTI: 0.19 LVOT Pk Grad: 4.00 LVOT Mn Grad: 2.00 LVOT Diam: 1.80 LVOT Area: 2.54 Diastolic Function MV Pk E: 0.93 MV Pk A: 1.10 E/A: 0.80 E'Medial: 5.11 E/E' Med: 18.20 E' Laterial: 10.00 E/E' Lat: 9.30 Tricuspid Valve RA Press: 3.00 Updated in Other Vendor System with Status of Final Kelvin Oscar MD electronically signed on 09/24/2022 1:55:02 PM with status of Final
--- NOTE | 2022-09-23 09:13 | HM_ITS ---
conclusion: 1. Patient was monitored for total period of 3 days 2. Baseline was normal sinus rhythm with average heart of 75 beats per minute with noted first-degree AV block and intermittent change in QRS morphology consistent with intermittent bundle-branch block 3. Total of 29,392 PACs accounting for 9.2% of total beats account for frequent PACs 4. Rare PVCs noted 5. No significant pauses noted 6. No patient reported events MTDD
== END ==
LOC: HO.CARD 09:04
PROVIDERS: PCP Internal Medicine; Visit Provider Internal Medicine Cardiovascular Disease
DX: I48.91 Unspecified atrial fibrillation (principal); I42.9 Cardiomyopathy, unspecified
CPT/HCPCS: 93242; 93308

== ENCOUNTER → 2022-09-26 12:58 | Outpatient (BNVA) | payer MEDICARE, SELFPAY | PROVIDERS: Visit Provider Internal Medicine Cardiovascular Disease | DX: I48.0 Paroxysmal atrial fibrillation (principal); Z45.018 Encounter for adjustment and management of other part of cardiac pacemaker | CPT/HCPCS: 99212 ==

== ENCOUNTER 2022-09-28 15:12 | Outpatient (REF) | payer MEDICARE, SELFPAY ==
[2022-09-28 17:21] LABS: Appearance Urine Cloudy; Color Urine Yellow; Glucose Urine UA Negative (Negative); Leukocyte Esterase Urine Large (3+) (Negative); Nitrite Urine Negative (Negative); PH 7.5 (5.0-9.0); Specific Gravity - Urine <= 1.005 (1.005-1.025); UMIC TRIGGER UACC YES; Urine Blood Small (1+) (Negative); Urine Ketones Negative (Negative); Urine Protein Negative (Neg-Trace)
[2022-09-28 17:37] LABS: Bacteria Urine 1+ (None Seen); Hyaline Casts Urine 0-2 /LPF (0-2); RBC Urine 0-2 /HPF (0-2); Squamous Epithelial Cell Urine 0-2 /HPF (0-2); UACC Culture Trigger YES; WBC Urine >50 /HPF (0-5)
== END 2022-09-28 15:13 | disposition home or self-care (01) ==
LOC: HO.HMGCLNP 15:12
PROVIDERS: PCP Internal Medicine; Visit Provider Internal Medicine
DX: R30.0 Dysuria (principal)
CPT/HCPCS: 81001; 81003; 87086

== ENCOUNTER 2022-11-12 06:41 | Outpatient (REF) | payer MEDICARE, SELFPAY ==
[2022-09-29 12:55] VITALS: BP 112/70; BP 134/70
[2022-10-25 09:30] VITALS: BMI 24.6
[2022-11-12 09:37] LABS: B Type Natriuretic Peptide 1010 pg/mL (<100)
[2022-11-12 11:06] LABS: MANUAL DIFF FLAG NO
[2022-11-12 11:12] LABS: Basophils Percent Auto 0.4 % (0-2); Eosinophils Absolute Auto 0.1 X10*3/uL (0.0-0.4); Eosinophils Percent Auto 0.7 % (0-4); Hematocrit 38.3 % (37.0-47.0); Hemoglobin 12.6 g/dl (12.0-16.0); Imm Gran Abs Auto 0.02 X10*3/uL (0.00-0.03); Imm Gran Pct Auto 0.3 % (0.0-0.4); Lymphocytes Absolute Auto 1.3 X10*3/uL (1.2-4.9); Lymphocytes Percent Auto 19.3 % (20-40); Mean Corpuscular HGB Conc 32.9 g/dl (31.0-35.0); Mean Corpuscular Hemoglobin 31.3 pg (27.0-33.0); Mean Corpuscular Volume 95.3 fL (80.0-98.0); Mean Platelet Volume 10.1 fL (9.4-12.3); Monocytes Absolute Auto 0.4 X10*3/uL (0.1-1.2); Monocytes Percent Auto 6.2 % (2-11); Neutrophils Absolute Auto 4.9 x10*3/uL (2.0-8.3); Neutrophils Percent Auto 73.1 % (45-73); Platelet Count 225 X10*3/uL (160-400); Red Blood Count 4.02 X10*6/uL (4.20-5.50); Red Cell Distribution Width 14.6 % (11.0-16.0); White Blood Count 6.8 X10*3/uL (4.8-10.8)
[2022-11-12 11:35] LABS: Alanine Aminotransferase 14 U/L (0-31); Albumin Level 3.8 g/dL (3.5-5.0); Alkaline Phosphatase 46 U/L (39-117); Anion Gap 15 (12-20); Aspartate Amino Transferase 21 U/L (5-31); Bilirubin Total 0.9 mg/dL (0.0-1.0); Blood Urea Nitrogen 17 mg/dL (9-16); Calcium 8.8 mg/dL (8.4-10.2); Carbon Dioxide 22 mmol/L (22-29); Chloride 102 mmol/L (96-108); Estimated Glomerular Filt Rate 58; Glucose Fasting 100 mg/dL (60-99); Iron 57 mcg/dL (30-160); Percent Iron Saturation 21 % (15-50); Potassium 4.2 mmol/L (3.3-5.1); Sodium 135 mmol/L (135-145); Total Iron Binding Capacity 272 mcg/dL (228-428); Total Protein 6.3 g/dL (6.5-8.0); Unsaturated Iron Binding 215 ug/dL
[2022-11-12 12:06] LABS: Folate 16.2 ng/mL (> or = 4.0); TSH reflex Free T4 7.48 uIU/mL (0.32-4.0); Vitamin B12 1504 pg/mL (200-900)
[2022-11-12 12:49] LABS: Free T4 (Free Thyroxine) 0.96 ng/dL (0.71-1.85)
== END 2022-11-12 06:42 | disposition home or self-care (01) ==
LOC: HO.HMGCLDS 06:41
PROVIDERS: PCP Internal Medicine; Visit Provider Internal Medicine
DX: D64.9 Anemia, unspecified (principal); J44.9 Chronic obstructive pulmonary disease, unspecified; I50.9 Heart failure, unspecified
CPT/HCPCS: 36415; 80053; 82607; 82746; 83540; 83880; 84439; 84443; 85025

== ENCOUNTER 2022-11-16 14:19 | Outpatient (REF) | payer MEDICARE, SELFPAY ==
[2022-09-29 12:55] VITALS: BP 112/70; BP 134/70
[2022-10-25 09:30] VITALS: BMI 24.6
[2022-11-16 16:52] LABS: Appearance Urine Turbid; Color Urine Yellow; Glucose Urine UA Negative (Negative); Leukocyte Esterase Urine Large (3+) (Negative); Nitrite Urine Negative (Negative); Specific Gravity - Urine 1.015 (1.005-1.025); UMIC TRIGGER UACC YES; Urine Blood Small (1+) (Negative); Urine Ketones Negative (Negative); Urine Protein 30 (1+) mg/dL (Neg-Trace)
[2022-11-16 17:15] LABS: Bacteria Urine 4+ (None Seen); Hyaline Casts Urine 0-2 /LPF (0-2); RBC Urine 0-2 /HPF (0-2); UACC Culture Trigger YES; WBC Urine >50 /HPF (0-5)
== END 2022-11-16 14:20 | disposition home or self-care (01) ==
LOC: HO.HMGCLNP 14:19
PROVIDERS: PCP Internal Medicine; Visit Provider Internal Medicine
DX: R30.0 Dysuria (principal)
CPT/HCPCS: 81001; 87086; 87088; 87186

== ENCOUNTER 2022-12-09 14:08 | Outpatient (REF) | payer MEDICARE, SELFPAY ==
[2022-09-29 12:55] VITALS: BP 112/70; BP 134/70
[2022-11-22 13:47] VITALS: BP 118/60; BMI 24.6
[2022-12-09 17:15] LABS: Appearance Urine Turbid; Color Urine Yellow; Glucose Urine UA Negative (Negative); Leukocyte Esterase Urine Large (3+) (Negative); Nitrite Urine Negative (Negative); PH 6.5 (5.0-9.0); Specific Gravity - Urine 1.015 (1.005-1.025); UMIC TRIGGER UACC YES; Urine Blood Moderate (2+) (Negative); Urine Ketones Negative (Negative); Urine Protein 100 (2+) mg/dL (Neg-Trace)
[2022-12-09 17:41] LABS: Bacteria Urine 3+ (None Seen); UACC Culture Trigger YES; WBC Urine >50 /HPF (0-5)
== END 2022-12-09 14:09 | disposition home or self-care (01) ==
LOC: HO.HMGCLDS 14:08
PROVIDERS: PCP Internal Medicine; Visit Provider Internal Medicine
DX: R30.0 Dysuria (principal)
CPT/HCPCS: 81001; 87086

== ENCOUNTER 2022-12-29 11:11 | Outpatient (REF) | payer MEDICARE, SELFPAY ==
[2022-09-29 12:55] VITALS: BP 112/70; BP 134/70
[2022-12-20 14:49] VITALS: BP 118/60; BMI 25.0
== END 2022-12-29 11:12 | disposition home or self-care (01) ==
LOC: HO.HMGCLDS 11:11
PROVIDERS: PCP Internal Medicine; Visit Provider Internal Medicine
DX: Z13.89 Encounter for screening for other disorder (principal)

== ENCOUNTER → 2023-01-12 10:19 | Outpatient (BNVA) | payer MEDICARE, SELFPAY ==
[2022-12-20 14:49] VITALS: BP 118/60; BMI 25.0
[2023-01-12 10:19] VITALS: BP 90/52; BP 92/48
== END ==
PROVIDERS: PCP Internal Medicine; Referring Provider Internal Medicine; Visit Provider Internal Medicine Cardiovascular Disease
DX: I48.0 Paroxysmal atrial fibrillation (principal); I45.2 Bifascicular block; I10 Essential (primary) hypertension; Z87.891 Personal history of nicotine dependence; Z98.890 Other specified postprocedural states; Z95.0 Presence of cardiac pacemaker
CPT/HCPCS: 93005; 99212

== ENCOUNTER 2023-01-31 12:38 | Outpatient (REF) | payer MEDICARE, SELFPAY ==
[2022-12-20 14:49] VITALS: BP 118/60; BMI 25.0
[2023-01-12 10:19] VITALS: BP 90/52; BP 92/48
[2023-01-31 16:13] LABS: MANUAL DIFF FLAG NO
[2023-01-31 16:29] LABS: Basophils Percent Auto 0.5 % (0-2); Eosinophils Absolute Auto 0.4 X10*3/uL (0.0-0.4); Eosinophils Percent Auto 4.1 % (0-4); Hematocrit 24.5 % (37.0-47.0); Hemoglobin 7.7 g/dl (12.0-16.0); Imm Gran Abs Auto 0.03 X10*3/uL (0.00-0.03); Imm Gran Pct Auto 0.3 % (0.0-0.4); Immature Retic Fraction 25.6 % (3.0-15.9); Lymphocytes Percent Auto 11.3 % (20-40); Mean Corpuscular HGB Conc 31.4 g/dl (31.0-35.0); Mean Corpuscular Hemoglobin 31.3 pg (27.0-33.0); Mean Corpuscular Volume 99.6 fL (80.0-98.0); Mean Platelet Volume 9.2 fL (9.4-12.3); Monocytes Absolute Auto 0.7 X10*3/uL (0.1-1.2); Monocytes Percent Auto 7.4 % (2-11); Neutrophils Absolute Auto 6.7 x10*3/uL (2.0-8.3); Neutrophils Percent Auto 76.4 % (45-73); Platelet Count 407 X10*3/uL (160-400); Red Blood Count 2.46 X10*6/uL (4.20-5.50); Red Cell Distribution Width 14.8 % (11.0-16.0); Retic HGB Equivalent 32.6 pg (30.0-35.0); Reticulocyte Percent 5.4 % (0.5-1.8); Reticulocytes Absolute 0.134 X10*6/uL (0.026-0.095); White Blood Count 8.7 X10*3/uL (4.8-10.8)
[2023-01-31 16:48] LABS: Alanine Aminotransferase 19 U/L (0-31); Albumin Level 3.4 g/dL (3.5-5.0); Alkaline Phosphatase 59 U/L (39-117); Anion Gap 13 (12-20); Aspartate Amino Transferase 26 U/L (5-31); Bilirubin Total 0.4 mg/dL (0.0-1.0); Blood Urea Nitrogen 16 mg/dL (9-16); Calcium 9.6 mg/dL (8.4-10.2); Carbon Dioxide 22 mmol/L (22-29); Chloride 101 mmol/L (96-108); Estimated Glomerular Filt Rate > 60; Glucose Random 115 mg/dL (60-115); Iron 27 mcg/dL (30-160); Percent Iron Saturation 12 % (15-50); Potassium 3.9 mmol/L (3.3-5.1); Sodium 132 mmol/L (135-145); Total Iron Binding Capacity 231 mcg/dL (228-428); Total Protein 6.2 g/dL (6.5-8.0); Unsaturated Iron Binding 204 ug/dL
[2023-01-31 16:50] LABS: B Type Natriuretic Peptide 756 pg/mL (<100)
== END 2023-01-31 12:39 | disposition home or self-care (01) ==
LOC: HO.HMGCLDS 12:38
PROVIDERS: PCP Internal Medicine; Visit Provider Internal Medicine
DX: D64.9 Anemia, unspecified (principal); I42.9 Cardiomyopathy, unspecified; I48.0 Paroxysmal atrial fibrillation
CPT/HCPCS: 36415; 80053; 83540; 83880; 84484; 85025; 85045

== ENCOUNTER 2023-01-31 18:54 | Inpatient (IN) | payer MEDICARE, SELFPAY ==
[2022-12-20 14:49] VITALS: BP 118/60; BMI 25.0
[2023-01-12 10:19] VITALS: BP 90/52; BP 92/48
--- NOTE | ~2023-01-31 | XR_ITS ---
EXAMINATION: XR CHEST CLINICAL INFORMATION: Shortness of breath COMPARISON: 07/16/2022 TECHNIQUE: Frontal view of the chest was obtained. FINDINGS: The heart is enlarged. No evidence of CHF. There is a left chest wall subclavian single lead pacemaker again noted. No consolidations or pleural effusions seen. Some airspace disease seen at the time of the prior study has cleared. XR/XR chest 1V IMPRESSION: Cardiomegaly. No acute intrathoracic disease.
--- NOTE | 2023-01-31 19:07 | ECG_ITS ---
Test Reason : AFIB Blood Pressure : / mmHG Vent. Rate : 074 BPM Atrial Rate : 049 BPM P-R Int : 000 ms QRS Dur : 140 ms QT Int : 430 ms P-R-T Axes : 000 -19 -27 degrees QTc Int : 477 ms Sinus bradycardia with A-V dissociation with Junctional rhythm Right bundle branch block Abnormal ECG When compared with ECG of 19-JUL-2022 10:27, AV disscoiation is now present T wave inversion no longer evident in Lateral leads Referred By: Santa Suazo Electronically Signed By:NESTOR RIBERA MD
--- NOTE | 2023-01-31 19:07 | ED.GENADULT ---
HPI - General Adult General Chief complaint: General Medical Stated complaint: ?Blood transfusion sent by PCP Time Seen by Provider: 01/31/23 19:43 Source: patient and family Mode of arrival: ambulatory Limitations: no limitations History of Present Illness HPI narrative: 69-year-old female with history of CHF, COPD and paroxysmal atrial fibrillation on anticoagulation presents with symptomatic anemia. Patient was recently discharged from [facility] with a GI bleed. She had been complaining of approximately 1 month of shortness of breath. She was sent to [facility] for CT angiogram of the chest rule out pulmonary embolus. In this was negative. Subsequently, she was found to have a GI bleed and was admitted the hospital. Apparently no upper or lower endoscopy was performed. No transfusion was performed. She was discharged and restarted on her medications including Eliquis for atrial fibrillation. Patient progressive shortness of breath with exertion, no chest pain. She has had generalized weakness, severe fatigue this significant amount of sleeping. Her symptoms are worsened by any kind of exertion. They are improved by rest. She has had no fever, chills, cough or mucus production. She does have dark stool but she is on oral iron supplementation. Related Data Home Medications Medication Instructions Recorded Confirmed calcium carbonate 600 mg calcium 600 mg PO BID 07/16/22 01/31/23 (1,500 mg) tablet (Calcium) cholecalciferol (vitamin D3) 50 50 mcg PO BEDTIME 07/16/22 01/31/23 mcg (2,000 unit) tablet (Vitamin D3) fluticasone propionate 50 2 spray intranasal BID 07/16/22 01/31/23 mcg/actuation nasal spray,suspension magnesium 200 mg tablet 400 mg PO BEDTIME 07/16/22 01/31/23 pravastatin 20 mg tablet 20 mg PO BEDTIME 07/16/22 01/31/23 acetaminophen 325 mg tablet 650 mg PO Q6H PRN Pain 01/31/23 01/31/23 (Tylenol) furosemide 20 mg tablet 20 mg PO BID 01/31/23 01/31/23 ipratropium 0.5 mg-albuterol 3 mg 3 ml inhalation Q8H 01/31/23 01/31/23 (2.5 mg base)/3 mL nebulization soln levothyroxine 25 mcg tablet 25 mcg PO DAILY@0600 01/31/23 01/31/23 peg 400-propylene glycol (PF) 0.4 1 drp ophthalmic (eye) BID 01/31/23 01/31/23 %-0.3 % eye drops in a dropperette (Systane (PF)) Previous Rx's Medication Instructions Recorded albuterol sulfate 90 mcg/actuation 2 puff inhalation QID PRN 08/03/22 aerosol inhaler Shortness Of Breath Or Wheezing #8.5 grams lisinopril 20 mg tablet 20 mg PO DAILY #90 tabs 08/23/22 apixaban 5 mg tablet (Eliquis) 5 mg PO BID #60 tabs 10/11/22 Wixela Inhub 250 mcg-50 mcg/dose 1 inh inhalation BID #60 ea 12/29/22 powder for inhalation (fluticasone propion-salmeterol) Allergies Allergy/AdvReac Type Severity Reaction Status Date / Time gemifloxacin Allergy Unknown Rash Verified 01/12/23 10:33 montelukast [Singulair] Allergy Unknown mood swings Verified 01/12/23 10:33 prednisone Allergy Unknown sob Verified 01/12/23 10:33 Review of Systems Review of Systems: CONSTITUTIONAL: Denies weight loss, fever and chills. HEENT: Denies changes in vision and hearing. RESPIRATORY: + SOB - cough. CV: Denies palpitations no CP. GI: Denies abdominal pain, nausea, vomiting and diarrhea. : Denies dysuria and urinary frequency. MSK: Denies myalgia and joint pain. SKIN: Denies rash and pruritus. NEUROLOGICAL: Denies headache and syncope. PSYCHIATRIC: Denies recent changes in mood. Denies anxiety and depression. All other ROS are negative unless in HPI PMFSH Past Medical History Medical History Cardiac pacemaker in situ CHF (congestive heart failure) COPD (chronic obstructive pulmonary disease) HTN (hypertension) Hyperlipemia Hyponatremia Meniere disease Osteoporosis Pneumonia Rhabdomyolysis Sleep apnea SSS (sick sinus syndrome) Surgical History History of cardiac cath History of hysterectomy Family History Family History Father Lung cancer Mother COPD (chronic obstructive pulmonary disease) Social History Social History Household Members: Spouse Housing: House Do you presently have visiting nurse or other home services: No Alcohol intake: former Year quit: 1989 Patient Tobacco Use Status: Former Tobacco user Quit Date: 1989 Years Smoked: 30 +/- e-Cigarette/Vaping Use: Never Used Second Hand Smoke Exposure: Yes Advance Directives: No Advance Directives Information Provided: No service: No Current occupational status: retired Cognitive needs: No Hearing needs: Yes Vision needs: Yes Physical Exam ED Vital Signs: Vital Signs - 24 hr 01/31/23 20:00 Pulse Rate 69 Respiratory Rate 24 H Blood Pressure 100/59 L Pulse Oximetry 95 Oxygen Delivery Method Nasal Cannula BMI result Body Mass Index 23.4 GEN: Well developed, no acute distress, alert, oriented HEENT: Normocephalic, atraumatic, normal external ears, nose appears normal, no oropharyngeal edema or exudates Eyes: Normal to appearance Neck: Supple, no lymphadenopathy Respiratory: Talks in complete sentences, no respiratory distress, clear to auscultation bilaterally Cardiovascular: Irregularly irregular, no murmurs rubs or gallops Abdomen: Soft, nontender, nondistended, no guarding, no rebound Back: No CVA tenderness Rectal: Dark stool sent for occult blood Extremities: No clubbing cyanosis or edema Neurologic: No focal neurologic deficits, cranial nerves 2-12 intact, strength is 5/5 bilaterally Skin: No rash Course Course Course Narrative: This is an RME: Additional HPI, ROS, PE not included below will be deferred to primary provider. 77 year old female hx of afib on eliquism anxiety, copd, cardiomyopathy presenting w/ anemia on out patient labs per pcp. Was hospitalized due to shortness of breath was noted to have trace blood in stool per family. Today fatigue, malaise and shortness of breath. Plan- labs, obs, type and screen, ua , blood culture, lactic BP: 85/51, O2: 90% P: 68 Will get her to the main ed will speak to charge Reevaluation(s) Reevaluation #1: Patient has symptomatic anemia. This was confirmed by repeat CBC. Patient was consented for blood transfusion. That has been ordered on her behalf. She is guaiac positive. Patient will be admitted to the hospital. Time: 23:56 Medical Decision Making Medical Decision Making MDM Narrative: 69-year-old female with COPD, CHF presents with dyspnea on exertion, generalized weakness and incoming diagnosis of symptomatic anemia. Her hemoglobin was 7.4 as an outpatient. We will need to reconfirm this is an actual lab value verses a laboratory error. At this point, I assume this is going to be a correct diagnosis. Lungs are clear to auscultation bilaterally. Differential diagnosis is CHF, COPD, symptomatic anemia, electrolyte abnormality, deconditioning, gastrointestinal bleeding, hemolysis Plan: Repeat lab testing, transfuse if needed. Differential Diagnosis Differential Diagnoses: The differential diagnosis associated with the presentation includes (See above) Admission/Observation Consideration of admission/observation: Escalation of care including admission/observation considered Consult Healthcare Provider Management of the patient was discussed with: Hospitalist Lab Data [facility] Lab Attestation statement: I reviewed the patient's lab results. 01/31/23 19:31 01/31/23 19:31 Labs: Lab Results 01/31/23 01/31/23 01/31/23 Range/Units 19:31 19:31 19:31 WBC 8.9 (4.8-10.8) X10*3/uL RBC 2.50 L (4.20-5.50) X10*6/uL Hgb 7.8 L (12.0-16.0) g/dl Hct 24.6 L (37.0-47.0) % MCV 98.4 H (80.0-98.0) fL MCH 31.2 (27.0-33.0) pg MCHC 31.7 (31.0-35.0) g/dl RDW 14.9 (11.0-16.0) % Plt Count 386 (160-400) X10*3/uL MPV 8.8 L (9.4-12.3) fL Immature Gran % (Auto) 0.3 (0.0-0.4) % Neut % (Auto) 72.7 (45-73) % Lymph % (Auto) 15.7 L (20-40) % [place] % (Auto) 6.8 (2-11) % Eos % (Auto) 4.0 (0-4) % Baso % (Auto) 0.5 (0-2) % Lymph # (Auto) 1.4 (1.2-4.9) X10*3/uL [place] # (Auto) 0.6 (0.1-1.2) X10*3/uL Eos # (Auto) 0.4 (0.0-0.4) X10*3/uL Baso # (Auto) 0.0 (0.0-0.2) X10*3/uL Abs Immat Gran (auto) 0.03 (0.00-0.03) X10*3/uL Absolute Neuts (auto) 6.5 (2.0-8.3) x10*3/uL Absolute Nucleated RBC 0.040 H (0.0-0.012) X10*3/uL Nucleated RBC % (auto) 0.5 H (0.0-0.2) /100WBC Sodium 134 L (135-145) mmol/L Potassium 3.9 (3.3-5.1) mmol/L Chloride 100 (96-108) mmol/L Carbon Dioxide 21 L (22-29) mmol/L Anion Gap 17 (12-20) BUN 18 H (9-16) mg/dL Creatinine 1.15 (0.5-1.4) mg/dL Estim Creat Clear Calc TNP Estimated GFR 46 Random Glucose 102 (60-115) mg/dL Calcium 9.2 (8.4-10.2) mg/dL Magnesium 2.0 (1.6-2.6) mg/dL Total Bilirubin 0.3 (0.0-1.0) mg/dL AST 23 (5-31) U/L ALT 21 (0-31) U/L Alkaline Phosphatase 63 (39-117) U/L B-Natriuretic Peptide (<100) pg/mL Total Protein 6.5 (6.5-8.0) g/dL Albumin 3.4 L (3.5-5.0) g/dL Stool Occult Blood COVID-19 (JONATAN) Invalid (Negative) COVID-19 Clin Com See Note Blood Type Antibody Screen Crossmatch 01/31/23 01/31/23 01/31/23 Range/Units 19:31 19:31 21:29 WBC (4.8-10.8) X10*3/uL RBC (4.20-5.50) X10*6/uL Hgb (12.0-16.0) g/dl Hct (37.0-47.0) % MCV (80.0-98.0) fL MCH (27.0-33.0) pg MCHC (31.0-35.0) g/dl RDW (11.0-16.0) % Plt Count (160-400) X10*3/uL MPV (9.4-12.3) fL Immature Gran % (Auto) (0.0-0.4) % Neut % (Auto) (45-73) % Lymph % (Auto) (20-40) % [place] % (Auto) (2-11) % Eos % (Auto) (0-4) % Baso % (Auto) (0-2) % Lymph # (Auto) (1.2-4.9) X10*3/uL [place] # (Auto) (0.1-1.2) X10*3/uL Eos # (Auto) (0.0-0.4) X10*3/uL Baso # (Auto) (0.0-0.2) X10*3/uL Abs Immat Gran (auto) (0.00-0.03) X10*3/uL Absolute Neuts (auto) (2.0-8.3) x10*3/uL Absolute Nucleated RBC (0.0-0.012) X10*3/uL Nucleated RBC % (auto) (0.0-0.2) /100WBC Sodium (135-145) mmol/L Potassium (3.3-5.1) mmol/L Chloride (96-108) mmol/L Carbon Dioxide (22-29) mmol/L Anion Gap (12-20) BUN (9-16) mg/dL Creatinine (0.5-1.4) mg/dL Estim Creat Clear Calc Estimated GFR Random Glucose (60-115) mg/dL Calcium (8.4-10.2) mg/dL Magnesium (1.6-2.6) mg/dL Total Bilirubin (0.0-1.0) mg/dL AST (5-31) U/L ALT (0-31) U/L Alkaline Phosphatase (39-117) U/L B-Natriuretic Peptide 870 H (<100) pg/mL Total Protein (6.5-8.0) g/dL Albumin (3.5-5.0) g/dL Stool Occult Blood Cancelled COVID-19 (JONATAN) (Negative) COVID-19 Clin Com Blood Type A Positive Antibody Screen NEGATIVE Crossmatch See Detail 01/31/23 Range/Units 21:29 WBC (4.8-10.8) X10*3/uL RBC (4.20-5.50) X10*6/uL Hgb (12.0-16.0) g/dl Hct (37.0-47.0) % MCV (80.0-98.0) fL MCH (27.0-33.0) pg MCHC (31.0-35.0) g/dl RDW (11.0-16.0) % Plt Count (160-400) X10*3/uL MPV (9.4-12.3) fL Immature Gran % (Auto) (0.0-0.4) % Neut % (Auto) (45-73) % Lymph % (Auto) (20-40) % [place] % (Auto) (2-11) % Eos % (Auto) (0-4) % Baso % (Auto) (0-2) % Lymph # (Auto) (1.2-4.9) X10*3/uL [place] # (Auto) (0.1-1.2) X10*3/uL Eos # (Auto) (0.0-0.4) X10*3/uL Baso # (Auto) (0.0-0.2) X10*3/uL Abs Immat Gran (auto) (0.00-0.03) X10*3/uL Absolute Neuts (auto) (2.0-8.3) x10*3/uL Absolute Nucleated RBC (0.0-0.012) X10*3/uL Nucleated RBC % (auto) (0.0-0.2) /100WBC Sodium (135-145) mmol/L Potassium (3.3-5.1) mmol/L Chloride (96-108) mmol/L Carbon Dioxide (22-29) mmol/L Anion Gap (12-20) BUN (9-16) mg/dL Creatinine (0.5-1.4) mg/dL Estim Creat Clear Calc Estimated GFR Random Glucose (60-115) mg/dL Calcium (8.4-10.2) mg/dL Magnesium (1.6-2.6) mg/dL Total Bilirubin (0.0-1.0) mg/dL AST (5-31) U/L ALT (0-31) U/L Alkaline Phosphatase (39-117) U/L B-Natriuretic Peptide (<100) pg/mL Total Protein (6.5-8.0) g/dL Albumin (3.5-5.0) g/dL Stool Occult Blood POSITIVE COVID-19 (JONATAN) (Negative) COVID-19 Clin Com Blood Type Antibody Screen Crossmatch Independent Interpretation I performed an independent interpretation of an: EKG (Atrial fibrillation heart rate 74, right bundle-branch block, no acute ST elevations depressions) Independent Historian Clinical information obtained from an independent historian. History obtained from or confirmed by: Spouse Prescription Management I considered prescription management with: Other (Transfusion) Chronic Conditions Patient?s care impacted by: Other (Atrial fibrillation, COPD, CHF) Critical Care Time Critical Care Time Total Critical Care Time: 35 Attestation: 35 minutes of critical care time spent on patient care, direct evaluation, interpretation and medical data, documentation, consultation with other providers, all outside of any procedures. Discharge Plan Discharge Clinical Impression: Symptomatic anemia, COPD (chronic obstructive pulmonary disease), PAF (paroxysmal atrial fibrillation), CHF (congestive heart failure), Guaiac positive stools, Chronic anticoagulation Patient Disposition: Admitted As Inpatient
[2023-01-31 19:40] LABS: MANUAL DIFF FLAG NO
[2023-01-31 19:46] LABS: Basophils Percent Auto 0.5 % (0-2); Eosinophils Absolute Auto 0.4 X10*3/uL (0.0-0.4); Hematocrit 24.6 % (37.0-47.0); Hemoglobin 7.8 g/dl (12.0-16.0); Imm Gran Abs Auto 0.03 X10*3/uL (0.00-0.03); Imm Gran Pct Auto 0.3 % (0.0-0.4); Lymphocytes Absolute Auto 1.4 X10*3/uL (1.2-4.9); Lymphocytes Percent Auto 15.7 % (20-40); Mean Corpuscular HGB Conc 31.7 g/dl (31.0-35.0); Mean Corpuscular Hemoglobin 31.2 pg (27.0-33.0); Mean Corpuscular Volume 98.4 fL (80.0-98.0); Mean Platelet Volume 8.8 fL (9.4-12.3); Monocytes Absolute Auto 0.6 X10*3/uL (0.1-1.2); Monocytes Percent Auto 6.8 % (2-11); NRBC Pct Auto 0.5 /100WBC (0.0-0.2); Neutrophils Absolute Auto 6.5 x10*3/uL (2.0-8.3); Neutrophils Percent Auto 72.7 % (45-73); Platelet Count 386 X10*3/uL (160-400); Red Cell Distribution Width 14.9 % (11.0-16.0); White Blood Count 8.9 X10*3/uL (4.8-10.8)
[2023-01-31 19:57] LABS: Alanine Aminotransferase 21 U/L (0-31); Albumin Level 3.4 g/dL (3.5-5.0); Alkaline Phosphatase 63 U/L (39-117); Anion Gap 17 (12-20); Aspartate Amino Transferase 23 U/L (5-31); Bilirubin Total 0.3 mg/dL (0.0-1.0); Blood Urea Nitrogen 18 mg/dL (9-16); Calcium 9.2 mg/dL (8.4-10.2); Carbon Dioxide 21 mmol/L (22-29); Chloride 100 mmol/L (96-108); Estimated Glomerular Filt Rate 46; Glucose Random 102 mg/dL (60-115); Potassium 3.9 mmol/L (3.3-5.1); Sodium 134 mmol/L (135-145); Total Protein 6.5 g/dL (6.5-8.0)
[2023-01-31 20:00] VITALS: BP 100/59; PULSE 69; RESP 24; O2SAT 95; BMI 23.4
[2023-01-31 20:03] LABS: B Type Natriuretic Peptide 870 pg/mL (<100)
[2023-01-31 21:49] LABS: OBS Int Ctl Valid YES; OBS1 POSITIVE (NEGATIVE)
--- NOTE | 2023-01-31 22:01 | P.HPHOSP_ITS ---
Patient seen and examined at bedside, agree with the HARRIS findings assessment and plan. Patient will be admitted for evaluation of symptomatic anemia. Patient being transfused, will consult GI for further evaluation. Please see below for full H&P History of Present Illness Date of Service: 01/31/23 Attending physician on admission: Deborah Dang Chief Complaint: sob, weakness 77 year old female with history HFpEF, pulmonary hypertension, atrial fibrillation on eliquis, cardiomyopathy, COPD with chronic hypoxic respiratory failure on 1-2 L supplemental O2 at baseline, hypertension, hyperlipidemia, history of Meniere's disease, osteoporosis on Reclast, JEIMY, sick sinus syndrome s/p pacemaker placement, and chronic hyponatremia presented to the ED earlier today at the recommendation of her PCP due to anemia. She was recently hospitalized at [facility] for similar symptoms and found to have hemoglobin of 7.3. She was not transfused. She was evaluated by GI per patient and was told she should not undergo scope at this time due to anesthesia risk with recent cardiac history. She was diagnosed with afib, chf, and cardiomyopathy following influenza A diagnosis in 07/14. She is symptomatic with increasing dyspnea on exertion, fatigue, and generalized weakness ongoing for several weeks since completing cardiac rehab. She has also had intermittent nausea and vertigo but states this is longstanding related to her Meniere's disease. She denies any fevers, chills, abdominal pain, vomiting, diarrhea, constipation, melena, hematochezia, orthopnea, PND, lower extremity edema, lightheadedness, or chest pain. In the ED, patient tachypneic to 24 with soft blood pressure 100/59, vitals otherwise stable. Initial H/H 7.7/24.5, repeat 7.8/24.6%. Renal function baseline, electrolyte levels normal except for mild hyponatremia which is chronic of 134. Initial troponin 92, BNP 870 (which is consistent with baseline.). 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 Stool occult blood was positive. EKG showed atrial fibrillation, rate 74 without any acute changes. Review of Systems Review of Systems: General: No fevers, malaise, unintentional weight loss. + generalized weakness, fatigue Cardiovascular: No chest pain, palpitations, or leg edema Respiratory: + shortness of breath. No orthopnea, PND, wheezing, cough GI: +nausea. No abdominal pain, vomiting, diarrhea, constipation, melena, hemat ochezia : No dysuria, hematuria, increased urinary frequency, decreased urinary output MSK: No myalgia, back pain Neuro: No headaches, weakness, paresthesias Skin: No rashes or lesions [facility] Medical History Cardiac pacemaker in situ CHF (congestive heart failure) COPD (chronic obstructive pulmonary disease) HTN (hypertension) Hyperlipemia Hyponatremia Meniere disease Osteoporosis Pneumonia Rhabdomyolysis Sleep apnea SSS (sick sinus syndrome) Family History Father Lung cancer Mother COPD (chronic obstructive pulmonary disease) Surgical History History of cardiac cath History of hysterectomy Social History Household Members: Spouse Housing: House Do you presently have visiting nurse or other home services: No Alcohol intake: former Year quit: 1989 Patient Tobacco Use Status: Former Tobacco user Quit Date: 1989 Years Smoked: 30 +/- e-Cigarette/Vaping Use: Never Used Second Hand Smoke Exposure: Yes Advance Directives: No Advance Directives Information Provided: No service: No Current occupational status: retired Cognitive needs: No Hearing needs: Yes Vision needs: Yes Meds Allergies Allergy/AdvReac Type Severity Reaction Status Date / Time gemifloxacin Allergy Unknown Rash Verified 01/12/23 10:33 montelukast [Singulair] Allergy Unknown mood swings Verified 01/12/23 10:33 prednisone Allergy Unknown sob Verified 01/12/23 10:33 Active Medications: Current Medications Pharmacy Consult (Consult Rx Perform Med Rec) 1 each MISCELLANE ONCE PRN PRN Reason: Consult order Home Medications Medication Instructions Recorded Confirmed Last Taken Type calcium carbonate 600 mg calcium 600 mg PO BID 07/16/22 01/12/23 07/16/22 History (1,500 mg) tablet (Calcium) cholecalciferol (vitamin D3) 50 50 mcg PO BEDTIME 07/16/22 01/12/23 07/15/22 History mcg (2,000 unit) tablet (Vitamin D3) fluticasone propionate 50 1 spray intranasal BID 07/16/22 01/12/23 07/16/22 History mcg/actuation nasal spray,suspension magnesium 200 mg tablet 400 mg PO BEDTIME 07/16/22 01/12/23 07/15/22 History pravastatin 20 mg tablet 20 mg PO BEDTIME 07/16/22 01/12/23 07/15/22 History acetaminophen 650 mg 650 mg PO Q8H PRN 01/12/23 01/12/23 Unknown History tablet,extended release (Tylenol 8 Hour) furosemide 20 mg tablet 20 mg PO BID 01/31/23 01/31/23 01/31/23 History ipratropium 0.5 mg-albuterol 3 mg 3 ml inhalation Q8H 01/31/23 01/31/23 01/31/23 14:00 History (2.5 mg base)/3 mL nebulization soln levothyroxine 25 mcg tablet 25 mcg PO DAILY@0600 01/31/23 01/31/23 01/31/23 History peg 400-propylene glycol (PF) 0.4 1 drp ophthalmic (eye) BID 01/31/23 01/31/23 01/31/23 History %-0.3 % eye drops in a dropperette (Systane (PF)) Physical Exam Vital Signs and Narrative: Vital Signs: Last Vital Signs Pulse 69 01/31/23 20:00 Resp 24 H 01/31/23 20:00 BP 100/59 L 01/31/23 20:00 Pulse Ox 95 01/31/23 20:00 O2 Del Method Nasal Cannula 01/31/23 20:00 Oxygen Flow Rate 3 01/31/23 20:00 BMI result Body Mass Index 23.4 Constitutional - Awake and Alert, No apparent distress Eyes - PERRLA, EOMI Cardiovascular - S1S2, RRR, No edema Respiratory - Normal lung expansion, Normal respiratory effort, No respiratory distress, CTA bilaterally Gastrointestinal - NT / ND; +BS; No rebound or guarding Extremities - no calf tenderness bilaterally, no swelling Skin - Warm/Dry Neurological - Alert & oriented x3 Psychological - Appropriate affect Results Labs 01/31/23 19:31 01/31/23 19:31 Labs: Laboratory Results - last 24 hr 01/31/23 01/31/23 01/31/23 19:31 19:31 19:31 MCV 98.4 H MCH 31.2 MCHC 31.7 RDW 14.9 Plt Count 386 MPV 8.8 L Immature Gran % (Auto) 0.3 Neut % (Auto) 72.7 Lymph % (Auto) 15.7 L [place] % (Auto) 6.8 Eos % (Auto) 4.0 Baso % (Auto) 0.5 Lymph # (Auto) 1.4 [place] # (Auto) 0.6 Eos # (Auto) 0.4 Baso # (Auto) 0.0 Abs Immat Gran (auto) 0.03 Absolute Neuts (auto) 6.5 Absolute Nucleated RBC 0.040 H Nucleated RBC % (auto) 0.5 H Anion Gap 17 Estim Creat Clear Calc TNP Estimated GFR 46 Random Glucose 102 Calcium 9.2 Magnesium 2.0 Total Bilirubin 0.3 AST 23 ALT 21 Alkaline Phosphatase 63 B-Natriuretic Peptide 870 H Total Protein 6.5 Albumin 3.4 L Stool Occult Blood Blood Type Antibody Screen Crossmatch 01/31/23 01/31/23 01/31/23 19:31 21:29 21:29 MCV MCH MCHC RDW Plt Count MPV Immature Gran % (Auto) Neut % (Auto) Lymph % (Auto) [place] % (Auto) Eos % (Auto) Baso % (Auto) Lymph # (Auto) Hall # (Auto) Eos # (Auto) Baso # (Auto) Abs Immat Gran (auto) Absolute Neuts (auto) Absolute Nucleated RBC Nucleated RBC % (auto) Anion Gap Estim Creat Clear Calc Estimated GFR Random Glucose Calcium Magnesium Total Bilirubin AST ALT Alkaline Phosphatase B-Natriuretic Peptide Total Protein Albumin Stool Occult Blood Cancelled POSITIVE Blood Type A Positive Antibody Screen NEGATIVE Crossmatch See Detail Assessment and Plan (1) Symptomatic anemia: Status: Acute (2) Acute GI bleeding: Status: Acute Plan 77 year old female with history HFpEF, pulmonary hypertension, atrial fibrillation on eliquis, cardiomyopathy, COPD with chronic hypoxic respiratory failure on 1-2 L supplemental O2 at baseline, hypertension, hyperlipidemia, history of Meniere's disease, osteoporosis on Reclast, JEIMY, sick sinus syndrome s/p pacemaker placement, and chronic hyponatremia. #Acute symptomatic anemia -likely r/t GI bleed -Hgb 7.8, goal >8.0. Hgb prior to eliquis 12.0 -transfuse 1 unit prbc -admit to telemetry -follow cbc #Acute GI bleed -stool occult positive -Hold eliquis -GI consult -Will also consult cardiology re: cardiac risk/clearance if needed and ongoing eliquis use -Monitor on telemetry -Npo for now # heart failure preserved ejection fraction -no acute exacerbation -BNP baseline, CXR pending -give 20 mg IV Lasix with transfusion x1 # COPD -no acute exacerbation -continue home inhalers, albuterol p.r.n. # chronic hypoxemic respiratory failure -no acute exacerbation of hypoxia -continue baseline supplemental O2 # paroxysmal atrial fibrillation -rate controlled, pacemaker in place, not on rate control drugs -hold Eliquis as above # hypertension -blood pressure soft, hold antihypertensives for now, resume as appropriate # hypothyroidism -continue Synthroid DVT prophylaxis- S CPs Full code Patient requires inpatient stay at least 2 midnights for management of acute symptomatic anemia related to GI bleed requiring blood transfusion close monitoring of blood counts and cardiac monitoring as well as expert consultation Time Spent With Patient Time: Total time managing care of this patient today ____ minutes. Quality Stroke Does the patient have a stroke diagnosis?: No VTE Prior VTE?: No VTE Risk Level:: Medical - moderate - high VTE Device Contraindication: N/A - Device Ordered VTE Drug Contraindication: Treatment Not Indicated
--- NOTE | 2023-01-31 22:18 | PHA.MEDREC ---
Pharmacy Consult ? Medication Reconciliation Pharmacy has completed the medication reconciliation. Spoke to patient to confirm meds.
[2023-01-31 22:34] LABS: COVID-19 Test Invalid (Negative); IDNOW Serial# BCCEAD1C
[2023-01-31 22:47] VITALS: BP 117/66; PULSE 76; RESP 15; TEMP 36.5
[2023-01-31 23:03] VITALS: BP 125/61; PULSE 69; RESP 26; TEMP 36.9
--- NOTE | 2023-01-31 23:49 | MHC.EDTECH ---
Spoke with Dr. Abreu @[phone] and asked if a repeat EKG was needed. He stated no, I did not preformed a 2nd EKG.
[2023-02-01] VITALS (9 sets, daily range): BP systolic 98–147; BP diastolic 54–83; PULSE 59–83; RESP 16–20; TEMP 36.2–36.9; O2SAT 90–98; BMI 24.8
[2023-02-01] MEDS: 0.9 % Sodium Chloride Flush 3 ML SYRINGE IVFLUSH ×3 (02:12→15:58)
[2023-02-01] MEDS: Pantoprazole Sodium 40 MG/10 ML VIAL IVPUSH ×3 (02:12→15:58)
[2023-02-01 07:31] LABS: Alanine Aminotransferase 17 U/L (0-31); Albumin Level 3.1 g/dL (3.5-5.0); Alkaline Phosphatase 57 U/L (39-117); Anion Gap 13 (12-20); Aspartate Amino Transferase 22 U/L (5-31); Bilirubin Total 1.1 mg/dL (0.0-1.0); Blood Urea Nitrogen 18 mg/dL (9-16); Carbon Dioxide 23 mmol/L (22-29); Chloride 103 mmol/L (96-108); Creatinine Clr Calc Pharmacy 43.8; Estimated Glomerular Filt Rate > 60; Glucose Random 94 mg/dL (60-115); Potassium 3.9 mmol/L (3.3-5.1); Sodium 135 mmol/L (135-145); Total Protein 5.8 g/dL (6.5-8.0)
[2023-02-01] MEDS: Albuterol/Iprat 2.5/0.5MG 3 ML AMPUL.NEB INHALE ×2 (08:42→14:42)
--- NOTE | 2023-02-01 09:05 | MHC.CM.PN ---
IMM 02/01. Pt admitted with dx GI bleed. Pt lives at home with her spouse Claudine, she uses a walker, and uses O2 (through [employer]). Pt has VNA services with [facility] that started last week after being discharged from [facility]. D/C plan to return home with resumption of previous VNA services when medically cleared. Pt has a HCP, copy requested. Pts spouse will transport. PCP: Freida Pastor Vax: x 4
[2023-02-01] MEDS: lisinopriL 20 MG TABLET PO (09:57)
[2023-02-01] MEDS: Levothyroxine Sodium 25 MCG TABLET PO (09:58)
--- NOTE | 2023-02-01 10:34 | P.PNIM_ITS ---
Subjective Subjective Date of Service: 02/01/23 Interval History: f/u gib, no bleeding, H/H is pending Physical Exam Vital Signs: Vital Signs: Last Vital Signs Temp 97.6 F 02/01/23 07:57 Pulse 77 02/01/23 08:49 Resp 20 02/01/23 08:49 BP 123/61 02/01/23 07:57 Pulse Ox 97 02/01/23 07:57 O2 Del Method Nasal Cannula 02/01/23 07:57 O2 Flow Rate 4 02/01/23 07:57 Oxygen Flow Rate 3 01/31/23 20:00 BMI result Body Mass Index 24.8 Const: Other: General: AO X 3, no acute distress Resp: CTA bilateral CVS: S1,S2,RRR GI: +BS, NT, no distention Skin: No rash Neuro: motor grossly intact Psych: appropriate affect Objective Data Active Medications Acetaminophen (Acetaminophen 325 Mg Tablet) 650 mg PO Q6H PRN PRN Reason: Pain, Mild (Pain Scale 1-3) Albuterol Sulfate (Albuterol Sulfate 90 Mcg 8 Gm Inhaler) 2 puff INHALE QID PRN PRN Reason: Shortness Of Breath Or Wheezing Albuterol/Ipratropium (Albuterol/Iprat 2.5/0.5mg 3 Ml Ampul.Neb) 3 ml INHALE Q8H [facility] Last Admin: 02/01/23 08:42 Dose: 3 ml Documented By: DALIA Calcium Carbonate (Calcium Carbonate 500 Mg Tablet) 500 mg PO BID [facility] Last Admin: 02/01/23 09:57 Dose: 500 mg Documented By: HANNAH Docusate Sodium (Docusate Sodium 100 Mg Capsule) 100 mg PO DAILY PRN PRN Reason: Constipation Fluticasone Propionate (Fluticasone Propionate Nasal 16 Gm [place]) 2 spray NOSTRIL-B BID [facility] Fluticasone/Vilanterol (Fluticasone/Vilanterol 100/25 Blst.W.Dev) 1 puff INHALE RDAILY [facility] Levothyroxine Sodium (Levothyroxine Sodium 25 Mcg Tablet) 25 mcg PO DAILY@0600 [facility] Last Admin: 02/01/23 09:58 Dose: 25 mcg Documented By: HANNAH Lisinopril (Lisinopril 20 Mg Tablet) 20 mg PO DAILY [facility]; Protocol Last Admin: 02/01/23 09:57 Dose: 20 mg Documented By: HANNAH Magnesium Oxide (Magnesium Oxide 400 Mg Tablet) 200 mg PO BEDTIME [facility] Ondansetron HCl (Ondansetron Hcl 4 Mg/2 Ml Vial) 4 mg IVPUSH Q8H PRN PRN Reason: Nausea and Vomiting Pantoprazole Sodium (Pantoprazole Sodium 40 Mg/10 Ml Vial) 40 mg IVPUSH BID@0630,1630 [facility] Last Admin: 02/01/23 06:38 Dose: 40 mg Documented By: MALIKA Pharmacy Consult (Consult Rx Perform Med Rec) 1 each MISCELLANE ONCE PRN PRN Reason: Consult order Polyethyl Glycol/Propylene Glycol (Propylene Glycol/Peg 400 Gel Eye Drops 10ml) 1 drop EYE-BOTH BID [facility] Pravastatin Sodium (Pravastatin Sodium 20 Mg Tablet) 20 mg PO BEDTIME [facility] Sodium Chloride (0.9 % Sodium Chloride Flush 3 Ml Syringe) 3 ml IVFLUSH QSHIFT [facility] Last Admin: 02/01/23 09:58 Dose: 3 ml Documented By: HANNAH Vitamin D (Cholecalciferol (Vitamin D3) 25 Mcg Tablet) 50 mcg PO BEDTIME [facility] Labs 01/31/23 19:31 02/01/23 06:19 Labs: Laboratory Results - last 24 hr 01/31/23 01/31/23 01/31/23 19:31 19:31 19:31 MCV 98.4 H MCH 31.2 MCHC 31.7 RDW 14.9 Plt Count 386 MPV 8.8 L Immature Gran % (Auto) 0.3 Neut % (Auto) 72.7 Lymph % (Auto) 15.7 L [place] % (Auto) 6.8 Eos % (Auto) 4.0 Baso % (Auto) 0.5 Lymph # (Auto) 1.4 [place] # (Auto) 0.6 Eos # (Auto) 0.4 Baso # (Auto) 0.0 Abs Immat Gran (auto) 0.03 Absolute Neuts (auto) 6.5 Absolute Nucleated RBC 0.040 H Nucleated RBC % (auto) 0.5 H Anion Gap 17 Estim Creat Clear Calc TNP Estimated GFR 46 Random Glucose 102 Calcium 9.2 Magnesium 2.0 Total Bilirubin 0.3 AST 23 ALT 21 Alkaline Phosphatase 63 B-Natriuretic Peptide Total Protein 6.5 Albumin 3.4 L Stool Occult Blood COVID-19 (JONATAN) Invalid COVID-19 Clin Com See Note Blood Type Antibody Screen Crossmatch 01/31/23 01/31/23 01/31/23 19:31 19:31 21:29 MCV MCH MCHC RDW Plt Count MPV Immature Gran % (Auto) Neut % (Auto) Lymph % (Auto) [place] % (Auto) Eos % (Auto) Baso % (Auto) Lymph # (Auto) [place] # (Auto) Eos # (Auto) Baso # (Auto) Abs Immat Gran (auto) Absolute Neuts (auto) Absolute Nucleated RBC Nucleated RBC % (auto) Anion Gap Estim Creat Clear Calc Estimated GFR Random Glucose Calcium Magnesium Total Bilirubin AST ALT Alkaline Phosphatase B-Natriuretic Peptide 870 H Total Protein Albumin Stool Occult Blood Cancelled COVID-19 (JONATAN) [employer] Blood Type A Positive Antibody Screen NEGATIVE Crossmatch See Detail 01/31/23 02/01/23 21:29 06:19 MCV MCH MCHC RDW Plt Count MPV Immature Gran % (Auto) Neut % (Auto) Lymph % (Auto) [place] % (Auto) Eos % (Auto) Baso % (Auto) Lymph # (Auto) [place] # (Auto) Eos # (Auto) Baso # (Auto) Abs Immat Gran (auto) Absolute Neuts (auto) Absolute Nucleated RBC Nucleated RBC % (auto) Anion Gap 13 Estim Creat Clear Calc 43.8 Estimated GFR > 60 Random Glucose 94 Calcium 9.0 Magnesium Total Bilirubin 1.1 H AST 22 ALT 17 Alkaline Phosphatase 57 B-Natriuretic Peptide Total Protein 5.8 L Albumin 3.1 L Stool Occult Blood POSITIVE COVID-19 (JONATAN) [facility] [employer] Blood Type Antibody Screen Crossmatch Assessment and Plan (1) Symptomatic anemia: Status: Acute (2) Guaiac positive stools: Status: Acute (3) GI bleed: Status: Acute Plan 77 year old female with history HFpEF, pulmonary hypertension, atrial fibrillation on eliquis, cardiomyopathy, COPD with chronic hypoxic respiratory failure on 1-2 L supplemental O2 at baseline, hypertension, hyperlipidemia, history of Meniere's disease, osteoporosis on Reclast, JEIMY, sick sinus syndrome s/p pacemaker placement, and chronic hyponatremia. #Acute symptomatic anemia, -likely r/t GI bleed from eliquis use -Hgb 7.8, goal >8.0. Hgb prior to eliquis 12.0 -transfuse 1 unit prbc--check lab today -hold eliquis, PPI, GI consult # heart failure preserved ejection fraction -no acute exacerbation -BNP baseline, CXR pending -give 20 mg IV Lasix with transfusion x1 # COPD -no acute exacerbation -continue home inhalers, albuterol p.r.n. # chronic hypoxemic respiratory failure -no acute exacerbation of hypoxia -continue baseline supplemental O2 # paroxysmal atrial fibrillation -rate controlled, pacemaker in place, not on rate control drugs -hold Eliquis as above # hypertension -blood pressure soft, hold antihypertensives for now, resume as appropriate # hypothyroidism -continue Synthroid DVT prophylaxis- S CPs Need for inpt: acute blood loss anemia, gib Time Spent With Patient Time: Total time managing care of this patient today ____ minutes. Quality Stroke Does the patient have a stroke diagnosis?: No VTE Prior VTE?: No VTE Risk Level:: Medical - moderate - high VTE Device Contraindication: N/A - Device Ordered VTE Drug Contraindication: Treatment Not Indicated
[2023-02-01 10:50] LABS: Hematocrit 27.1 % (37.0-47.0); Hemoglobin 8.9 g/dl (12.0-16.0); Mean Corpuscular HGB Conc 32.8 g/dl (31.0-35.0); Mean Corpuscular Hemoglobin 32.2 pg (27.0-33.0); Mean Corpuscular Volume 98.2 fL (80.0-98.0); Mean Platelet Volume 9.2 fL (9.4-12.3); Platelet Count 361 X10*3/uL (160-400); Red Blood Count 2.76 X10*6/uL (4.20-5.50); Red Cell Distribution Width 14.7 % (11.0-16.0); White Blood Count 8.9 X10*3/uL (4.8-10.8)
[2023-02-01] MEDS: Fluticasone/Vilanterol 100/25 BLST.W.DEV 1 PUFF INHALE (11:20)
[2023-02-01] MEDS: Propylene Glycol/PEG 400 Gel Eye Drops 10ML 1 DROP EYE-BOTH ×2 (11:26→21:08)
[2023-02-01] MEDS: Fluticasone Propionate Nasal 16 GM SPRAY 2 SPRAY NOSTRIL-B ×2 (11:26→21:09)
--- NOTE | 2023-02-01 12:22 | P.CNGI_ITS ---
History of Present Illness Data of Consult Service Date: 02/01/23 Requesting physician: Deborah Dang Primary Care Provider: Freida Yarbrough MD HPI Reason for consult: anemia 77 year old female with history HFpEF, pulmonary hypertension, atrial fibrillation on eliquis, cardiomyopathy, COPD with chronic hypoxic respiratory failure on 1-2 L supplemental O2 at baseline, hypertension, hyperlipidemia, history of Meniere's disease, osteoporosis on Reclast, JEIMY, sick sinus syndrome s/p pacemaker placement, and chronic hyponatremia who I am seeing for assessment for anemia She has been havign sx of dyspnea, fatigue, and generalized weakness for 1-2 weeks. She noted that thru out last week she had black stools, but now they turned brown. She has not seen fresh blood, no nausea, no abdominal pain. Denies reflux or dysphagia. She had similar presentation at [facility] and found to have hemoglobin of 7.3 recently. She got 1 u prbc here at [facility] [place] and hgb went from 8-->9 g/dl Of note she had recent chest CTA which revealed mediastinal left hilar lymphadenopathy Review of Systems Review of Systems: Constitutional : No Weight loss, No Fever, No Chills ENT/Mouth : No sore throat, No Rhinorrhea Eyes: No Swelling, No Redness Cardiovascular : No Chest Pain, + SOB, No Edema Respiratory : No Cough, No Sputum, No Wheezing Gastrointestinal : see HPI Genitourinary : NO Dysuria, No Urinary Frequency, No Hematuria, No Urgency Musculoskeletal : No joint pain, No Myalgias, No Joint Swelling Skin : No Skin Lesions, No rash Neuro : + Weakness, No Numbness, No Dizziness, No Headache Psych : No Anxiety/Panic, No Depression Heme/Lymph: No Bruising, No Lymphadenopathy Endocrine : No Polyuria, No Polydipsia All other systems reviewed and are negative. [facility] Past Medical History Medical History Cardiac pacemaker in situ CHF (congestive heart failure) COPD (chronic obstructive pulmonary disease) HTN (hypertension) Hyperlipemia Hyponatremia Meniere disease Osteoporosis Pneumonia Rhabdomyolysis Sleep apnea SSS (sick sinus syndrome) Family History Family History Father Lung cancer Mother COPD (chronic obstructive pulmonary disease) Surgical History Surgical History History of cardiac cath History of hysterectomy Social History Social History Household Members: Significant Other Housing: House Do you presently have visiting nurse or other home services: Yes Alcohol intake: former Year quit: 1989 Patient Tobacco Use Status: Former Tobacco user Quit Date: 1989 Years Smoked: 30 +/- e-Cigarette/Vaping Use: Never Used Second Hand Smoke Exposure: Yes Use of substances other than those prescribed or required for medical reasons: No Currently Displaying Signs/Symptoms of Drug Intoxication Withdrawal: No Have you been hit, kicked, punched, or otherwise hurt by someone within the past year? If so, by whom?: No Do you feel safe in your current relationship?: Yes Is there a partner from a previous relationship who is making you feel unsafe now?: No Are you made to feel afraid or neglected: No Advance Directives: No Advance Directives Information Provided: No Do you have thoughts of harming others: None Do you have a plan to hurt others: No Plan Recently lost weight without trying: No Nutrition Risks: No Nutritional Risk Patient : No service: No Current occupational status: retired Cognitive needs: No Hearing needs: Yes Vision needs: Yes Meds Allergies Allergy/AdvReac Type Severity Reaction Status Date / Time gemifloxacin Allergy Unknown Rash Verified 01/12/23 10:33 montelukast [Singulair] Allergy Unknown mood swings Verified 01/12/23 10:33 prednisone Allergy Unknown sob Verified 01/12/23 10:33 Active Medications: Current Medications Acetaminophen (Acetaminophen 325 Mg Tablet) 650 mg PO Q6H PRN PRN Reason: Pain, Mild (Pain Scale 1-3) Albuterol Sulfate (Albuterol Sulfate 90 Mcg 8 Gm Inhaler) 2 puff INHALE QID PRN PRN Reason: Shortness Of Breath Or Wheezing Albuterol/Ipratropium (Albuterol/Iprat 2.5/0.5mg 3 Ml Ampul.Neb) 3 ml INHALE Q8H [facility] Last Admin: 02/01/23 08:42 Dose: 3 ml Calcium Carbonate (Calcium Carbonate 500 Mg Tablet) 500 mg PO BID [facility] Last Admin: 02/01/23 09:57 Dose: 500 mg Docusate Sodium (Docusate Sodium 100 Mg Capsule) 100 mg PO DAILY PRN PRN Reason: Constipation Fluticasone Propionate (Fluticasone Propionate Nasal 16 Gm [place]) 2 spray NOSTRIL-B BID [facility] Last Admin: 02/01/23 11:26 Dose: 2 spray Fluticasone/Vilanterol (Fluticasone/Vilanterol 100/25 Blst.W.Dev) 1 puff INHALE RDAILY [facility] Last Admin: 02/01/23 11:20 Dose: 1 puff Levothyroxine Sodium (Levothyroxine Sodium 25 Mcg Tablet) 25 mcg PO DAILY@0600 [facility] Last Admin: 02/01/23 09:58 Dose: 25 mcg Lisinopril (Lisinopril 20 Mg Tablet) 20 mg PO DAILY [facility]; Protocol Last Admin: 02/01/23 09:57 Dose: 20 mg Magnesium Oxide (Magnesium Oxide 400 Mg Tablet) 200 mg PO BEDTIME [facility] Ondansetron HCl (Ondansetron Hcl 4 Mg/2 Ml Vial) 4 mg IVPUSH Q8H PRN PRN Reason: Nausea and Vomiting Pantoprazole Sodium (Pantoprazole Sodium 40 Mg/10 Ml Vial) 40 mg IVPUSH BID@0630,1630 [facility] Last Admin: 02/01/23 06:38 Dose: 40 mg Pharmacy Consult (Consult Rx Perform Med Rec) 1 each MISCELLANE ONCE PRN PRN Reason: Consult order Polyethyl Glycol/Propylene Glycol (Propylene Glycol/Peg 400 Gel Eye Drops 10ml) 1 drop EYE-BOTH BID [facility] Last Admin: 02/01/23 11:26 Dose: 1 drop Pravastatin Sodium (Pravastatin Sodium 20 Mg Tablet) 20 mg PO BEDTIME [facility] Sodium Chloride (0.9 % Sodium Chloride Flush 3 Ml Syringe) 3 ml IVFLUSH QSHIFT [facility] Last Admin: 02/01/23 09:58 Dose: 3 ml Vitamin D (Cholecalciferol (Vitamin D3) 25 Mcg Tablet) 50 mcg PO BEDTIME [facility] Home Medications Medication Instructions Recorded Confirmed Last Taken Type calcium carbonate 600 mg calcium 600 mg PO BID 07/16/22 01/31/23 01/31/23 History (1,500 mg) tablet (Calcium) cholecalciferol (vitamin D3) 50 50 mcg PO BEDTIME 07/16/22 01/31/23 01/31/23 History mcg (2,000 unit) tablet (Vitamin D3) fluticasone propionate 50 2 spray intranasal BID 07/16/22 01/31/23 01/31/23 History mcg/actuation nasal spray,suspension magnesium 200 mg tablet 400 mg PO BEDTIME 07/16/22 01/31/23 01/31/23 History pravastatin 20 mg tablet 20 mg PO BEDTIME 07/16/22 01/31/23 01/31/23 History acetaminophen 325 mg tablet 650 mg PO Q6H PRN Pain 01/31/23 01/31/23 01/31/23 History (Tylenol) furosemide 20 mg tablet 20 mg PO BID 01/31/23 01/31/23 01/31/23 History ipratropium 0.5 mg-albuterol 3 mg 3 ml inhalation Q8H 01/31/23 01/31/23 01/31/23 14:00 History (2.5 mg base)/3 mL nebulization soln levothyroxine 25 mcg tablet 25 mcg PO DAILY@0600 01/31/23 01/31/23 01/31/23 History peg 400-propylene glycol (PF) 0.4 1 drp ophthalmic (eye) BID 01/31/23 01/31/23 01/31/23 History %-0.3 % eye drops in a dropperette (Systane (PF)) Physical Exam Vital Signs: Vital Signs: Last Vital Signs Temp 98.5 F 02/01/23 11:15 Pulse 83 02/01/23 11:15 Resp 20 02/01/23 11:15 BP 117/60 02/01/23 11:15 Pulse Ox 92 02/01/23 11:15 O2 Del Method Nasal Cannula 02/01/23 11:15 O2 Flow Rate 2 02/01/23 11:15 Oxygen Flow Rate 3 01/31/23 20:00 BMI result Body Mass Index 24.8 EXAM: GENERAL: The patient is frail, on oxygen VITAL SIGNS:see workflow HEENT: Nonicteric sclerae, PERRLA, EOMI. Oropharynx clear. Moist mucous membranes. Conjunctivae appear pale. No thyroid mass. CHEST: Chest wall is nontender. HEART: irregular rate and rhythm without murmurs. LUNGS: Clear to auscultation bilaterally. ABDOMEN: Soft, positive bowel sounds, nontender, no organomegaly.no flank tenderness SKIN: No rash, no excessive bruising, petechiae, or purpura. NEUROLOGIC: Cranial nerves II-XII intact without motor/sensory deficit. psych-nml affect Results Labs 02/01/23 06:19 02/01/23 06:19 Labs: Short CBC 01/31/23 02/01/23 Range/Units 19:31 06:19 WBC 8.9 8.9 (4.8-10.8) X10*3/uL Hgb 7.8 L 8.9 L (12.0-16.0) g/dl Hct 24.6 L 27.1 L (37.0-47.0) % Plt Count 386 361 (160-400) X10*3/uL BMP 01/31/23 02/01/23 19:31 06:19 Sodium 134 L 135 Potassium 3.9 3.9 Chloride 100 103 Carbon Dioxide 21 L 23 BUN 18 H 18 H Creatinine 1.15 0.84 Calcium 9.2 9.0 Liver Function 01/31/23 02/01/23 Range/Units 19:31 06:19 Total Bilirubin 0.3 1.1 H (0.0-1.0) mg/dL AST 23 22 (5-31) U/L ALT 21 17 (0-31) U/L Alkaline Phosphatase 63 57 (39-117) U/L Albumin 3.4 L 3.1 L (3.5-5.0) g/dL Assessment and Plan (1) Symptomatic anemia: Status: Acute (2) Chronic anticoagulation: Status: Acute (3) Renal failure: Status: Acute Plan 1/ Anemia with hx suggestive of melena which seems to have cleared up, appropriate increment in HGb with blood, ddx; mucosal bleeding from eliquis, PUD, esophagitis, neoplasia, AVM PLAN: 1/ clears today 2/ EGD tomorrow for further assessment, if neg then will consider colonoscopy 3/ can cont with PPI in the meantime, Time Spent With Patient Time: Total time managing care of this patient today ____ minutes. Procedures Date of Service Date of Service: 02/01/23
[2023-02-01 12:44] LABS: Appearance Urine Clear; Color Urine Yellow; Glucose Urine UA Negative (Negative); Leukocyte Esterase Urine Moderate (2+) (Negative); Nitrite Urine Negative (Negative); UMIC TRIGGER UACC YES; Urine Blood Negative (Negative); Urine Ketones Trace mg/dL (Negative); Urine Protein Negative (Neg-Trace)
[2023-02-01 12:46] LABS: Bacteria Urine None Seen (None Seen); Hyaline Casts Urine 0-2 /LPF (0-2); RBC Urine 0-2 /HPF (0-2); UACC Culture Trigger YES
[2023-02-01] MEDS: Acetaminophen 325 MG TABLET 650 MG PO ×2 (13:22→21:09)
--- NOTE | 2023-02-01 15:53 | ECG_ITS ---
Test Reason : telemetry Blood Pressure : / mmHG Vent. Rate : 074 BPM Atrial Rate : 044 BPM P-R Int : 000 ms QRS Dur : 146 ms QT Int : 452 ms P-R-T Axes : 000 -12 -37 degrees QTc Int : 501 ms Sinus bradycardia with A-V dissociation Right bundle branch block T wave abnormality, consider lateral ischemia Abnormal ECG When compared with ECG of 31-JAN-2023 19:16, No significant changes seen T wave inversion now evident in Lateral leads Referred By: Simon Pascual Electronically Signed By:NESTOR RIBERA MD
--- NOTE | 2023-02-01 16:09 | ECG_ITS ---
Test Reason : AFIB Blood Pressure : / mmHG Vent. Rate : 075 BPM Atrial Rate : 000 BPM P-R Int : 000 ms QRS Dur : 146 ms QT Int : 460 ms P-R-T Axes : 000 -11 -43 degrees QTc Int : 513 ms Sinus bradycardia with A-V dissociation with Junctional rhythm Right bundle branch block T wave abnormality, consider inferolateral ischemia Abnormal ECG When compared with ECG of 01-FEB-2023 16:08, No significant changes seen Referred By: Jessica Alonso Electronically Signed By:NESTOR RIBERA MD
[2023-02-01] MEDS: Magnesium Oxide 400 MG TABLET 200 MG PO (21:09)
[2023-02-01] MEDS: Cholecalciferol (Vitamin D3) 25 MCG TABLET 50 MCG PO (21:11)
[2023-02-01] MEDS: Pravastatin Sodium 20 MG TABLET PO (21:12)
[2023-02-02] VITALS (16 sets, daily range): BP systolic 87–143; BP diastolic 45–83; PULSE 62–83; RESP 15–22; TEMP 36.1–37.1; O2SAT 90–100; BMI 25.7
[2023-02-02] MEDS: 0.9 % Sodium Chloride Flush 3 ML SYRINGE IVFLUSH ×3 (00:12→16:15)
[2023-02-02] MEDS: Albuterol/Iprat 2.5/0.5MG 3 ML AMPUL.NEB INHALE ×4 (00:26→22:46)
--- NOTE | 2023-02-02 00:33 | PC.NURSE ---
Assumed care at 07:00. A&Ox4, asked about nebulizers, MD notified, ordered TID, patient initially with expiratory wheezes, clear LS after administration. Seen by GI, new order for Clear liquid diet this afternoon, well tolerated, now NPO after 00:00. Plan for endoscopy 02/02 at 15:30, patient aware. Around 15:30 today, patient appeared to have deepening t-wave depression in lead II on telemetry and T-wave and possibly minimal ST-elevation on lead 1, denied chest pain or SOB, reports mild SOB on exertion with quick recovery, discussed with MD, new order for EKG, reviewed by MD. Patient inquired about lasix she takes at home, discussed with MD, will resume tomorrow. Reports taking 650 mg tylenol QID at home, now ordered PRN, given twice today for arthritic pain per patient, was in bilateral shoulders after a report of generalized pain, with effect. Continues on 4 LPM nasal cannula, with o2 for ambulation.
[2023-02-02] MEDS: Levothyroxine Sodium 25 MCG TABLET PO (06:04)
[2023-02-02] MEDS: Pantoprazole Sodium 40 MG/10 ML VIAL IVPUSH ×2 (06:05→16:15)
[2023-02-02] MEDS: Acetaminophen 325 MG TABLET 650 MG PO ×2 (06:14→21:07)
[2023-02-02 06:56] LABS: Hematocrit 26.8 % (37.0-47.0); Hemoglobin 8.6 g/dl (12.0-16.0); Mean Corpuscular HGB Conc 32.1 g/dl (31.0-35.0); Mean Corpuscular Hemoglobin 31.5 pg (27.0-33.0); Mean Corpuscular Volume 98.2 fL (80.0-98.0); Platelet Count 334 X10*3/uL (160-400); Red Blood Count 2.73 X10*6/uL (4.20-5.50); Red Cell Distribution Width 14.8 % (11.0-16.0); White Blood Count 7.3 X10*3/uL (4.8-10.8)
[2023-02-02] MEDS: Fluticasone/Vilanterol 100/25 BLST.W.DEV 1 PUFF INHALE (07:58)
[2023-02-02] MEDS: Propylene Glycol/PEG 400 Gel Eye Drops 10ML 1 DROP EYE-BOTH ×2 (09:21→21:10)
[2023-02-02] MEDS: Fluticasone Propionate Nasal 16 GM SPRAY 2 SPRAY NOSTRIL-B ×2 (09:21→21:08)
--- NOTE | 2023-02-02 11:24 | HO.ANESPROP2 ---
[facility] Active Problems Active Problems: All Active Problems (Updated 02/01/23 @ 10:43 by Simon Pascual MD) GI bleed (Acute) Symptomatic anemia (Acute) Guaiac positive stools (Acute) Chronic anticoagulation (Acute) Acute GI bleeding (Acute) Symptomatic anemia (Acute) Urinary bladder incontinence (Acute) PAF (paroxysmal atrial fibrillation) (Acute) Cardiac pacemaker in situ (Acute) Hypomagnesemia (Acute) Anxiety (Acute) Anemia (Acute) Renal failure (Acute) COPD (chronic obstructive pulmonary disease) (Acute) Cardiomyopathy (Acute) Elevated troponin (Acute) Influenza A (Acute) Sinusitis (Acute) Annual physical exam (Acute) Hyponatremia (Acute) Cellulitis (Acute) Osteoporosis (Acute) UTI (urinary tract infection) (Acute) Skin tear (Acute) Dysuria (Acute) CHF (congestive heart failure) (Acute) Hyperlipemia (Acute) HTN (hypertension) (Acute) Past Medical History Medical History Cardiac pacemaker in situ CHF (congestive heart failure) COPD (chronic obstructive pulmonary disease) HTN (hypertension) Hyperlipemia Hyponatremia Meniere disease Osteoporosis Pneumonia Rhabdomyolysis Sleep apnea SSS (sick sinus syndrome) Family History Family History Father Lung cancer Mother COPD (chronic obstructive pulmonary disease) Family history of problems with anesthesia: No Surgical History Surgical History History of cardiac cath History of hysterectomy History of Problems with Anesthesia: No Social History Social History Household Members: Significant Other Housing: House Do you presently have visiting nurse or other home services: Yes Alcohol intake: former Year quit: 1989 Patient Tobacco Use Status: Former Tobacco user Quit Date: 1989 Years Smoked: 30 +/- e-Cigarette/Vaping Use: Never Used Second Hand Smoke Exposure: No Use of substances other than those prescribed or required for medical reasons: No Currently Displaying Signs/Symptoms of Drug Intoxication Withdrawal: No Have you been hit, kicked, punched, or otherwise hurt by someone within the past year? If so, by whom?: No Do you feel safe in your current relationship?: Yes Is there a partner from a previous relationship who is making you feel unsafe now?: No Are you made to feel afraid or neglected: No Are you DNR?: No Advance Directives: No Advance Directives Information Provided: No Advance Directives on File: No Do you have thoughts of harming others: None Do you have a plan to hurt others: No Plan Recently lost weight without trying: No Nutrition Risks: No Nutritional Risk Patient : No service: No Current occupational status: retired Cognitive needs: No Hearing needs: Yes Vision needs: Yes Meds Allergies Allergy/AdvReac Type Severity Reaction Status Date / Time gemifloxacin Allergy Unknown Rash Verified 01/12/23 10:33 montelukast [Singulair] Allergy Unknown mood swings Verified 01/12/23 10:33 prednisone Allergy Unknown sob Verified 01/12/23 10:33 Active Medications: Current Medications Acetaminophen (Acetaminophen 325 Mg Tablet) 650 mg PO Q6H PRN PRN Reason: Pain, Mild (Pain Scale 1-3) Last Admin: 02/02/23 06:14 Dose: 650 mg Albuterol Sulfate (Albuterol Sulfate 90 Mcg 8 Gm Inhaler) 2 puff INHALE QID PRN PRN Reason: Shortness Of Breath Or Wheezing Albuterol/Ipratropium (Albuterol/Iprat 2.5/0.5mg 3 Ml Ampul.Neb) 3 ml INHALE Q8H [facility] Last Admin: 02/02/23 07:58 Dose: 3 ml Calcium Carbonate (Calcium Carbonate 500 Mg Tablet) 500 mg PO BID [facility] Last Admin: 02/02/23 09:21 Dose: 500 mg Docusate Sodium (Docusate Sodium 100 Mg Capsule) 100 mg PO DAILY PRN PRN Reason: Constipation Fluticasone Propionate (Fluticasone Propionate Nasal 16 Gm [place]) 2 spray NOSTRIL-B BID [facility] Last Admin: 02/02/23 09:21 Dose: 2 spray Fluticasone/Vilanterol (Fluticasone/Vilanterol 100/25 Blst.W.Dev) 1 puff INHALE RDAILY [facility] Last Admin: 02/02/23 07:58 Dose: 1 puff Levothyroxine Sodium (Levothyroxine Sodium 25 Mcg Tablet) 25 mcg PO DAILY@0600 [facility] Last Admin: 02/02/23 06:04 Dose: 25 mcg Lisinopril (Lisinopril 20 Mg Tablet) 20 mg PO DAILY [facility]; Protocol Last Admin: 02/02/23 09:34 Dose: Not Given Magnesium Oxide (Magnesium Oxide 400 Mg Tablet) 200 mg PO BEDTIME [facility] Last Admin: 02/01/23 21:09 Dose: 200 mg Ondansetron HCl (Ondansetron Hcl 4 Mg/2 Ml Vial) 4 mg IVPUSH Q8H PRN PRN Reason: Nausea and Vomiting Pantoprazole Sodium (Pantoprazole Sodium 40 Mg/10 Ml Vial) 40 mg IVPUSH BID@0630,1630 [facility] Last Admin: 02/02/23 06:05 Dose: 40 mg Pharmacy Consult (Consult Rx Perform Med Rec) 1 each MISCELLANE ONCE PRN PRN Reason: Consult order Polyethyl Glycol/Propylene Glycol (Propylene Glycol/Peg 400 Gel Eye Drops 10ml) 1 drop EYE-BOTH BID [facility] Last Admin: 02/02/23 09:21 Dose: 1 drop Pravastatin Sodium (Pravastatin Sodium 20 Mg Tablet) 20 mg PO BEDTIME [facility] Last Admin: 02/01/23 21:12 Dose: 20 mg Sodium Chloride (0.9 % Sodium Chloride Flush 3 Ml Syringe) 3 ml IVFLUSH QSHIFT [facility] Last Admin: 02/02/23 09:21 Dose: 3 ml Vitamin D (Cholecalciferol (Vitamin D3) 25 Mcg Tablet) 50 mcg PO BEDTIME [facility] Last Admin: 02/01/23 21:11 Dose: 50 mcg Home Medications Medication Instructions Recorded Confirmed Last Taken Type calcium carbonate 600 mg calcium 600 mg PO BID 07/16/22 01/31/23 01/31/23 History (1,500 mg) tablet (Calcium) cholecalciferol (vitamin D3) 50 50 mcg PO BEDTIME 07/16/22 01/31/23 01/31/23 History mcg (2,000 unit) tablet (Vitamin D3) fluticasone propionate 50 2 spray intranasal BID 07/16/22 01/31/23 01/31/23 History mcg/actuation nasal spray,suspension magnesium 200 mg tablet 400 mg PO BEDTIME 07/16/22 01/31/23 01/31/23 History pravastatin 20 mg tablet 20 mg PO BEDTIME 07/16/22 01/31/23 01/31/23 History acetaminophen 325 mg tablet 650 mg PO Q6H PRN Pain 07/06/1501/31/23 01/31/23 History (Tylenol) furosemide 20 mg tablet 20 mg PO BID 01/31/23 01/31/23 01/31/23 History ipratropium 0.5 mg-albuterol 3 mg 3 ml inhalation Q8H 01/31/23 01/31/23 01/31/23 14:00 History (2.5 mg base)/3 mL nebulization soln levothyroxine 25 mcg tablet 25 mcg PO DAILY@0600 01/31/23 01/31/23 01/31/23 History peg 400-propylene glycol (PF) 0.4 1 drp ophthalmic (eye) BID 01/31/23 01/31/23 01/31/23 History %-0.3 % eye drops in a dropperette (Systane (PF)) Exam Exam Date and Time: February 02, [id number] Height,Weight and Vital Signs: Height 5 ft Weight 59.6 kg Last Vital Signs Temp 97.8 F 02/02/23 10:53 Pulse 82 02/02/23 10:53 Resp 18 02/02/23 10:53 BP 130/79 02/02/23 10:53 Pulse Ox 90 L 02/02/23 10:53 O2 Del Method Nasal Cannula 02/02/23 10:53 O2 Flow Rate 3 02/02/23 10:53 Oxygen Flow Rate 3 01/31/23 20:00 Pertinent Lab Results Pertinent Lab Results: Laboratory Tests 01/31/23 01/31/23 01/31/23 19:31 19:31 19:31 WBC 8.9 RBC 2.50 L Hgb 7.8 L Hct 24.6 L MCV 98.4 H MCH 31.2 MCHC 31.7 RDW 14.9 Plt Count 386 MPV 8.8 L Immature Gran % (Auto) 0.3 Neut % (Auto) 72.7 Lymph % (Auto) 15.7 L [place] % (Auto) 6.8 Eos % (Auto) 4.0 Baso % (Auto) 0.5 Lymph # (Auto) 1.4 [place] # (Auto) 0.6 Eos # (Auto) 0.4 Baso # (Auto) 0.0 Abs Immat Gran (auto) 0.03 Absolute Neuts (auto) 6.5 Absolute Nucleated RBC 0.040 H Nucleated RBC % (auto) 0.5 H Sodium 134 L Potassium 3.9 Chloride 100 Carbon Dioxide 21 L Anion Gap 17 BUN 18 H Creatinine 1.15 Estim Creat Clear Calc TNP Estimated GFR 46 Random Glucose 102 Calcium 9.2 Magnesium 2.0 Total Bilirubin 0.3 AST 23 ALT 21 Alkaline Phosphatase 63 B-Natriuretic Peptide Total Protein 6.5 Albumin 3.4 L Urine Color Urine Appearance Urine pH Ur Specific [place] Urine Protein Urine Glucose (UA) Urine Ketones Urine Blood Urine Nitrite Ur Leukocyte Esterase Urine RBC Urine WBC Ur Squamous Epith Cells Urine Bacteria Hyaline Casts Stool Occult Blood COVID-19 (JONATAN) Invalid COVID-19 Clin Com See Note Blood Type Antibody Screen Crossmatch 01/31/23 01/31/23 01/31/23 19:31 19:31 21:29 WBC RBC Hgb Hct MCV MCH MCHC RDW Plt Count MPV Immature Gran % (Auto) Neut % (Auto) Lymph % (Auto) [place] % (Auto) Eos % (Auto) Baso % (Auto) Lymph # (Auto) [place] # (Auto) Eos # (Auto) Baso # (Auto) Abs Immat Gran (auto) Absolute Neuts (auto) Absolute Nucleated RBC Nucleated RBC % (auto) Sodium Potassium Chloride Carbon Dioxide Anion Gap BUN Creatinine Estim Creat Clear Calc Estimated GFR Random Glucose Calcium Magnesium Total Bilirubin AST ALT Alkaline Phosphatase B-Natriuretic Peptide 870 H Total Protein Albumin Urine Color Urine Appearance Urine pH Ur Specific [place] Urine Protein Urine Glucose (UA) Urine Ketones Urine Blood Urine Nitrite Ur Leukocyte Esterase Urine RBC Urine WBC Ur Squamous Epith Cells Urine Bacteria Hyaline Casts Stool Occult Blood Cancelled COVID-19 (JONATAN) COVID-19 Clin Com Blood Type A Positive Antibody Screen NEGATIVE Crossmatch See Detail 01/31/23 02/01/23 02/01/23 21:29 06:19 06:19 WBC 8.9 RBC 2.76 L Hgb 8.9 L Hct 27.1 L MCV 98.2 H MCH 32.2 MCHC 32.8 RDW 14.7 Plt Count 361 MPV 9.2 L Immature Gran % (Auto) Neut % (Auto) Lymph % (Auto) [place] % (Auto) Eos % (Auto) Baso % (Auto) Lymph # (Auto) [place] # (Auto) Eos # (Auto) Baso # (Auto) Abs Immat Gran (auto) Absolute Neuts (auto) Absolute Nucleated RBC 0.000 Nucleated RBC % (auto) 0.0 Sodium 135 Potassium 3.9 Chloride 103 Carbon Dioxide 23 Anion Gap 13 BUN 18 H Creatinine 0.84 Estim Creat Clear Calc 43.8 Estimated GFR > 60 Random Glucose 94 Calcium 9.0 Magnesium Total Bilirubin 1.1 H AST 22 ALT 17 Alkaline Phosphatase 57 B-Natriuretic Peptide Total Protein 5.8 L Albumin 3.1 L Urine Color Urine Appearance Urine pH Ur Specific [place] Urine Protein Urine Glucose (UA) Urine Ketones Urine Blood Urine Nitrite Ur Leukocyte Esterase Urine RBC Urine WBC Ur Squamous Epith Cells Urine Bacteria Hyaline Casts Stool Occult Blood POSITIVE COVID-19 (JONATAN) COVID-[employer] Blood Type Antibody Screen Crossmatch 02/01/23 02/02/23 12:20 06:17 WBC 7.3 RBC 2.73 L Hgb 8.6 L Hct 26.8 L MCV 98.2 H MCH 31.5 MCHC 32.1 RDW 14.8 Plt Count 334 MPV 9.0 L Immature Gran % (Auto) Neut % (Auto) Lymph % (Auto) [place] % (Auto) Eos % (Auto) Baso % (Auto) Lymph # (Auto) [place] # (Auto) Eos # (Auto) Baso # (Auto) Abs Immat Gran (auto) Absolute Neuts (auto) Absolute Nucleated RBC 0.000 Nucleated RBC % (auto) 0.0 Sodium Potassium Chloride Carbon Dioxide Anion Gap BUN Creatinine Estim Creat Clear Calc Estimated GFR Random Glucose Calcium Magnesium Total Bilirubin AST ALT Alkaline Phosphatase B-Natriuretic Peptide Total Protein Albumin Urine Color Yellow Urine Appearance Clear Urine pH 6.0 Ur Specific [place] 1.020 Urine Protein Negative Urine Glucose (UA) Negative Urine Ketones Trace Urine Blood Negative Urine Nitrite Negative Ur Leukocyte Esterase Moderate (2+) H Urine RBC 0-2 Urine WBC 11-20 H Ur Squamous Epith Cells 3-5 Urine Bacteria None Seen Hyaline Casts 0-2 Stool Occult Blood COVID-19 (JONATAN) COVID-19 [employer] Blood Type Antibody Screen Crossmatch Airway Mallampati Class: III TM Dist: >3cm Neck ROM: Limited Denture: Upper and Lower Assessment and Plan Assessment Anesthesia Assessment: Anesthesia Plan Discussed and Chart Reviewed Final Anesthetic Review Family History of Problems with Anesthesia: No History of Problems with Anesthesia: No NPO: Yes ASA Class: IV Final Preanesthetic Review: No Changes in Pt Med Stat, Meds/Allgs Chart Reviewed, Consent Obtained/Reviewed and Anes Risks/Benef Reviewed Patient Risk: High Procedure Risk: Low Anesthetic Plan Anesthetic Plan: MAC: Disposition: Standard PACU
--- NOTE | 2023-02-02 11:31 | MHC.SHP ---
Pre-Procedural Eval Section A Date of Service: 02/02/23 The patient is an INPATIENT: Yes The History & Physical has been completed within 30 days and I have reviewed it.: Yes Section B Chief Complaint: GI Bleed Allergies: Allergies Allergy/AdvReac Type Severity Reaction Status Date / Time gemifloxacin Allergy Unknown Rash Verified 01/12/23 10:33 montelukast [Singulair] Allergy Unknown mood swings Verified 01/12/23 10:33 prednisone Allergy Unknown sob Verified 01/12/23 10:33 Plan Diagnosis/Plan: Unchanged I have reviewed the history and physical and performed a pertinent physical examination on my patient. No changes have occurred unless specified. Time Spent With Patient Time: Total time managing care of this patient today ____ minutes.
--- NOTE | 2023-02-02 11:32 | W.PM.OPN ---
Operative Note Operative Note Date of Service: 02/02/23 Narrative: Procedure Description: EGD Indication: melena, anemia Anesthesia: MAC FLEXIBLE TRANSORAL UPPER GASTROINTESTINAL ENDOSCOPY UPPER ENDOSCOPY Consent: Indications for the procedure and potential complications of bleeding, perforation, reaction to medications and missed diagnosis were discussed with the patient and informed consent was obtained. Instrument: Olympus GIF H 190 J mid size upper endoscope Monitoring: Vital signs and clinical assessment, continuous EKG monitoring, Pulse oximetry, Carbon Dioxide monitoring and blood pressure monitoring were done throughout the procedure. Procedure: The patient was placed in the left lateral decubitis position and pre-procedure medications were administered and a bite block was placed. The endoscope was inserted into the mouth and advanced under direct vision to the third part of duodenum. A careful inspection was made as the upper endoscope was withdrawn including a retroflexed examination of the proximal stomach; Findings and interventions are described below. Findings: Larynx:normal Esophagus: GE junction at 36 cm, diaphragm hiatus at 38 cm, consistent with 2 cm hiatal hernia, Short segment barretts esophagus type mucosa noted, bx taken Stomach: Normal mucosa, looked like she may have had a fundoplication in the past Duodenum: Normal bulb and descending duodenum, Intervention: Biopsies as noted above Impression/Findings: barretts no active bleeding seen PLAN: colonoscopy tomorrow
--- NOTE | 2023-02-02 12:28 | MHC.CM.PN ---
EMR reviewed and per MD rounds, pt is not medically cleared for D/C today and is getting an EGD. CM will continue to follow.
[2023-02-02] MEDS: bisacodyL 5 MG TABLET.DR 10 MG PO (15:10)
--- NOTE | 2023-02-02 16:03 | HO.PM.IMPN ---
Subjective Subjective Date of Service: 02/02/23 Interval History: Complaining of back discomfort, denies hematemesis, no melena, is NPO for upper endoscopy this morning hematocrit stable after 1 units of packed RBC, no acute events overnight. Review of Systems All other systems reviewed and negative Physical Exam Vital Signs: Vital Signs: Last Vital Signs Temp 98.1 F 02/02/23 15:22 Pulse 71 02/02/23 15:22 Resp 17 02/02/23 15:22 BP 105/45 L 02/02/23 15:22 Pulse Ox 95 02/02/23 15:22 O2 Del Method Nasal Cannula 02/02/23 15:22 O2 Flow Rate 2 02/02/23 15:22 Oxygen Flow Rate 3 01/31/23 20:00 BMI result Body Mass Index 25.7 Const: Other: General: AO X 3, no acute distress Neck is supple Resp:? CTA bilateral CVS: S1,S2,RRR GI: +BS, nontender, no distention Skin: No rash Neuro:? motor grossly intact Psych: appropriate affect Objective Data Active Medications Acetaminophen (Acetaminophen 325 Mg Tablet) 650 mg PO Q6H PRN PRN Reason: Pain, Mild (Pain Scale 1-3) Last Admin: 02/02/23 06:14 Dose: 650 mg Documented By: MALIKA Albuterol Sulfate (Albuterol Sulfate 90 Mcg 8 Gm Inhaler) 2 puff INHALE QID PRN PRN Reason: Shortness Of Breath Or Wheezing Albuterol/Ipratropium (Albuterol/Iprat 2.5/0.5mg 3 Ml Ampul.Neb) 3 ml INHALE Q8H [facility] Last Admin: 02/02/23 14:56 Dose: 3 ml Documented By: YI Calcium Carbonate (Calcium Carbonate 500 Mg Tablet) 500 mg PO BID [facility] Last Admin: 02/02/23 09:21 Dose: 500 mg Documented By: ROSEMARY Docusate Sodium (Docusate Sodium 100 Mg Capsule) 100 mg PO DAILY PRN PRN Reason: Constipation Fluticasone Propionate (Fluticasone Propionate Nasal 16 Gm [place]) 2 spray NOSTRIL-B BID [facility] Last Admin: 02/02/23 09:21 Dose: 2 spray Documented By: ROSEMARY Fluticasone/Vilanterol (Fluticasone/Vilanterol 100/25 Blst.W.Dev) 1 puff INHALE RDAILY [facility] Last Admin: 02/02/23 07:58 Dose: 1 puff Documented By: YI Levothyroxine Sodium (Levothyroxine Sodium 25 Mcg Tablet) 25 mcg PO DAILY@0600 [facility] Last Admin: 02/02/23 06:04 Dose: 25 mcg Documented By: MALIKA Lisinopril (Lisinopril 20 Mg Tablet) 20 mg PO DAILY [facility]; Protocol Last Admin: 02/02/23 09:34 Dose: Not Given Documented By: ROSEMARY Non-Admin Reason: BP low Magnesium Oxide (Magnesium Oxide 400 Mg Tablet) 200 mg PO BEDTIME [facility] Last Admin: 02/01/23 21:09 Dose: 200 mg Documented By: HANNAH Comments: Ondansetron HCl (Ondansetron Hcl 4 Mg/2 Ml Vial) 4 mg IVPUSH Q8H PRN PRN Reason: Nausea and Vomiting Pantoprazole Sodium (Pantoprazole Sodium 40 Mg/10 Ml Vial) 40 mg IVPUSH BID@0630,1630 [facility] Last Admin: 02/02/23 06:05 Dose: 40 mg Documented By: MALIKA Pharmacy Consult (Consult Rx Perform Med Rec) 1 each MISCELLANE ONCE PRN PRN Reason: Consult order Polyethyl Glycol/Propylene Glycol (Propylene Glycol/Peg 400 Gel Eye Drops 10ml) 1 drop EYE-BOTH BID [facility] Last Admin: 02/02/23 09:21 Dose: 1 drop Documented By: ROSEMARY Polyethylene Glycol/Electrolytes (Peg 3350/Na Sulf,Bicarb,Cl/Kcl 4,000 Ml Soln.Recon) 240 ml PO Q10M [facility] Stop: 02/02/23 21:56 Pravastatin Sodium (Pravastatin Sodium 20 Mg Tablet) 20 mg PO BEDTIME [facility] Last Admin: 02/01/23 21:12 Dose: 20 mg Documented By: HANNAH Sodium Chloride (0.9 % Sodium Chloride Flush 3 Ml Syringe) 3 ml IVFLUSH QSHIFT [facility] Last Admin: 02/02/23 09:21 Dose: 3 ml Documented By: ROSEMARY Vitamin D (Cholecalciferol (Vitamin D3) 25 Mcg Tablet) 50 mcg PO BEDTIME [facility] Last Admin: 02/01/23 21:11 Dose: 50 mcg Documented By: HANNAH Labs 02/02/23 06:17 02/01/23 06:19 Labs: Laboratory Results - last 24 hr 02/02/23 06:17 MCV 98.2 H MCH 31.5 MCHC 32.1 RDW 14.8 Plt Count 334 MPV 9.0 L Absolute Nucleated RBC 0.000 Nucleated RBC % (auto) 0.0 Microbiology Microbiology Results: Microbiology 02/01/23 Unknown Urine Culture - Preliminary Urine clean catch - Urine graves top Culture in progress. Assessment and Plan (1) Symptomatic anemia: Status: Acute (2) Guaiac positive stools: Status: Acute (3) GI bleed: Status: Acute Plan 77 year old female with history HFpEF, pulmonary hypertension, atrial fibrillation on eliquis, cardiomyopathy, COPD with chronic hypoxic respiratory failure on 1-2 L supplemental O2 at baseline, hypertension, hyperlipidemia, history of Meniere's disease, osteoporosis on Reclast, JEIMY, sick sinus syndrome s/p pacemaker placement, and chronic hyponatremia. #Acute symptomatic anemia, -likely r/t GI bleed from eliquis use -Hgb 7.8, Hgb prior to eliquis 12.0, status post 1 unit of packed RBC repeat hemoglobin improved to 8.6 -hold eliquis, continue PPI, underwent upper endoscopy by Dr. Keith, no bleeding or lesion noted the therefore will undergo colonoscopy tomorrow . # chronic heart failure preserved ejection fraction -no acute exacerbation -BNP baseline, CXR pending -status post 20 mg IV Lasix with transfusion x1 # COPD -no acute exacerbation -continue home inhalers, albuterol p.r.n. # chronic hypoxemic respiratory failure -no acute exacerbation of hypoxia -continue baseline supplemental O2 # paroxysmal atrial fibrillation -rate controlled, pacemaker in place, not on rate control drugs -hold Eliquis as above # hypertension -blood pressure soft, hold antihypertensives for now, resume as appropriate # hypothyroidism -continue Synthroid DVT prophylaxis- compression boots. Need for inpt: acute blood loss anemia, gib Time Spent With Patient Time: Total time managing care of this patient today ____ minutes. Quality Stroke Does the patient have a stroke diagnosis?: No VTE Prior VTE?: No VTE Risk Level:: Medical - moderate - high VTE Device Contraindication: N/A - Device Ordered VTE Drug Contraindication: Treatment Not Indicated
[2023-02-02] MEDS: PEG 3350/Na Sulf,Bicarb,Cl/KCL 4,000 ML SOLN.RECON 240 ML PO (19:09)
[2023-02-02] MEDS: Magnesium Oxide 400 MG TABLET 200 MG PO (21:06)
[2023-02-02] MEDS: PEG 3350/Na Sulf,Bicarb,Cl/KCL 4,000 ML SOLN.RECON 4000 ML PO (21:09)
[2023-02-02] MEDS: Cholecalciferol (Vitamin D3) 25 MCG TABLET 50 MCG PO (21:09)
[2023-02-02] MEDS: Pravastatin Sodium 20 MG TABLET PO (21:11)
[2023-02-03] VITALS (8 sets, daily range): BP systolic 119–162; BP diastolic 67–93; PULSE 74–83; RESP 18–22; TEMP 36.2–37.2; O2SAT 90–99; BMI 23.5
[2023-02-03] MEDS: Pantoprazole Sodium 40 MG/10 ML VIAL IVPUSH (06:01)
[2023-02-03] MEDS: Levothyroxine Sodium 25 MCG TABLET PO (06:01)
--- NOTE | 2023-02-03 06:32 | PC.NURSE ---
Pt brought down to pre-op this AM for colonscopy. Report given to FITTING ROOM CHECKER.
--- NOTE | 2023-02-03 07:19 | P.CONAN_ITS ---
[facility] Active Problems Active Problems: All Active Problems (Updated 02/01/23 @ 10:43 by Simon Pascual MD) Dysuria (Acute) Skin tear (Acute) UTI (urinary tract infection) (Acute) Cellulitis (Acute) Annual physical exam (Acute) Sinusitis (Acute) Elevated troponin (Acute) Influenza A (Acute) Cardiomyopathy (Acute) Renal failure (Acute) Anemia (Acute) Anxiety (Acute) Hypomagnesemia (Acute) PAF (paroxysmal atrial fibrillation) (Acute) Urinary bladder incontinence (Acute) Symptomatic anemia (Acute) Acute GI bleeding (Acute) Symptomatic anemia (Acute) Guaiac positive stools (Acute) Chronic anticoagulation (Acute) GI bleed (Acute) Cardiac pacemaker in situ (Acute) COPD (chronic obstructive pulmonary disease) (Acute) Hyponatremia (Acute) Osteoporosis (Acute) CHF (congestive heart failure) (Acute) Hyperlipemia (Acute) HTN (hypertension) (Acute) Past Medical History Medical History Cardiac pacemaker in situ CHF (congestive heart failure) COPD (chronic obstructive pulmonary disease) HTN (hypertension) Hyperlipemia Hyponatremia Meniere disease Osteoporosis Pneumonia Rhabdomyolysis Sleep apnea SSS (sick sinus syndrome) Family History Family History Father Lung cancer Mother COPD (chronic obstructive pulmonary disease) Family history of problems with anesthesia: No Surgical History Surgical History History of cardiac cath History of endoscopy History of hysterectomy History of permanent cardiac pacemaker placement History of Problems with Anesthesia: No Social History Social History Household Members: Significant Other Housing: House Do you presently have visiting nurse or other home services: Yes Alcohol intake: former Year quit: 1989 Patient Tobacco Use Status: Former Tobacco user Quit Date: 1989 Years Smoked: 30 +/- e-Cigarette/Vaping Use: Never Used Second Hand Smoke Exposure: No Use of substances other than those prescribed or required for medical reasons: No Currently Displaying Signs/Symptoms of Drug Intoxication Withdrawal: No Have you been hit, kicked, punched, or otherwise hurt by someone within the past year? If so, by whom?: No Do you feel safe in your current relationship?: Yes Is there a partner from a previous relationship who is making you feel unsafe now?: No Are you made to feel afraid or neglected: No Are you DNR?: No Advance Directives: No Advance Directives Information Provided: No Advance Directives on File: No Do you have thoughts of harming others: None Do you have a plan to hurt others: No Plan Recently lost weight without trying: No Nutrition Risks: No Nutritional Risk Patient : No service: No Current occupational status: retired Cognitive needs: No Hearing needs: Yes Vision needs: Yes Meds Allergies Allergy/AdvReac Type Severity Reaction Status Date / Time gemifloxacin Allergy Unknown Rash Verified 02/03/23 06:48 montelukast [Singulair] Allergy Unknown mood swings Verified 02/03/23 06:48 prednisone Allergy Unknown sob Verified 02/03/23 06:48 Active Medications: Current Medications Acetaminophen (Acetaminophen 325 Mg Tablet) 650 mg PO Q6H PRN PRN Reason: Pain, Mild (Pain Scale 1-3) Last Admin: 02/02/23 21:07 Dose: 650 mg Albuterol Sulfate (Albuterol Sulfate 90 Mcg 8 Gm Inhaler) 2 puff INHALE QID PRN PRN Reason: Shortness Of Breath Or Wheezing Albuterol/Ipratropium (Albuterol/Iprat 2.5/0.5mg 3 Ml Ampul.Neb) 3 ml INHALE Q8H [facility] Last Admin: 02/02/23 22:46 Dose: 3 ml Calcium Carbonate (Calcium Carbonate 500 Mg Tablet) 500 mg PO BID [facility] Last Admin: 02/02/23 21:08 Dose: 500 mg Docusate Sodium (Docusate Sodium 100 Mg Capsule) 100 mg PO DAILY PRN PRN Reason: Constipation Fluticasone Propionate (Fluticasone Propionate Nasal 16 Gm [place]) 2 spray NOSTRIL-B BID [facility] Last Admin: 02/02/23 21:08 Dose: 2 spray Fluticasone/Vilanterol (Fluticasone/Vilanterol 100/25 Blst.W.Dev) 1 puff INHALE RDAILY [facility] Last Admin: 02/02/23 07:58 Dose: 1 puff Levothyroxine Sodium (Levothyroxine Sodium 25 Mcg Tablet) 25 mcg PO DAILY@0600 [facility] Last Admin: 02/03/23 06:01 Dose: 25 mcg Lisinopril (Lisinopril 20 Mg Tablet) 20 mg PO DAILY [facility]; Protocol Last Admin: 02/02/23 09:34 Dose: Not Given Magnesium Oxide (Magnesium Oxide 400 Mg Tablet) 200 mg PO BEDTIME [facility] Last Admin: 02/02/23 21:06 Dose: 200 mg Ondansetron HCl (Ondansetron Hcl 4 Mg/2 Ml Vial) 4 mg IVPUSH Q8H PRN PRN Reason: Nausea and Vomiting Pantoprazole Sodium (Pantoprazole Sodium 40 Mg/10 Ml Vial) 40 mg IVPUSH BID@0630,1630 [facility] Last Admin: 02/03/23 06:01 Dose: 40 mg Pharmacy Consult (Consult Rx Perform Med Rec) 1 each MISCELLANE ONCE PRN PRN Reason: Consult order Polyethyl Glycol/Propylene Glycol (Propylene Glycol/Peg 400 Gel Eye Drops 10ml) 1 drop EYE-BOTH BID [facility] Last Admin: 02/02/23 21:10 Dose: 1 drop Pravastatin Sodium (Pravastatin Sodium 20 Mg Tablet) 20 mg PO BEDTIME [facility] Last Admin: 02/02/23 21:11 Dose: 20 mg Sodium Chloride (0.9 % Sodium Chloride Flush 3 Ml Syringe) 3 ml IVFLUSH QSHIFT [facility] Last Admin: 02/03/23 01:27 Dose: Not Given Vitamin D (Cholecalciferol (Vitamin D3) 25 Mcg Tablet) 50 mcg PO BEDTIME [facility] Last Admin: 02/02/23 21:09 Dose: 50 mcg Home Medications Medication Instructions Recorded Confirmed Last Taken Type calcium carbonate 600 mg calcium 600 mg PO BID 07/16/22 01/31/23 01/31/23 History (1,500 mg) tablet (Calcium) cholecalciferol (vitamin D3) 50 50 mcg PO BEDTIME 07/16/22 01/31/23 01/31/23 History mcg (2,000 unit) tablet (Vitamin D3) fluticasone propionate 50 2 spray intranasal BID 07/16/22 01/31/23 01/31/23 History mcg/actuation nasal spray,suspension magnesium 200 mg tablet 400 mg PO BEDTIME 07/16/22 01/31/23 01/31/23 History pravastatin 20 mg tablet 20 mg PO BEDTIME 07/16/22 01/31/23 01/31/23 History acetaminophen 325 mg tablet 650 mg PO Q6H PRN Pain 01/31/23 01/31/23 01/31/23 History (Tylenol) furosemide 20 mg tablet 20 mg PO BID 01/31/23 01/31/23 01/31/23 History ipratropium 0.5 mg-albuterol 3 mg 3 ml inhalation Q8H 01/31/23 01/31/23 01/31/23 14:00 History (2.5 mg base)/3 mL nebulization soln levothyroxine 25 mcg tablet 25 mcg PO DAILY@0600 01/31/23 01/31/23 01/31/23 History peg 400-propylene glycol (PF) 0.4 1 drp ophthalmic (eye) BID 01/31/23 01/31/23 01/31/23 History %-0.3 % eye drops in a dropperette (Systane (PF)) Exam Exam Date and Time: February 03, 2023 0719 Height,Weight and Vital Signs: Height 5 ft Weight 54.7 kg Last Vital Signs Temp 99.0 F 02/03/23 06:39 Pulse 81 02/03/23 06:39 Resp 22 H 02/03/23 06:39 BP 162/85 H 02/03/23 06:39 Pulse Ox 91 L 02/03/23 06:39 O2 Del Method Nasal Cannula 02/03/23 06:39 O2 Flow Rate 3 02/03/23 06:39 Oxygen Flow Rate 3 01/31/23 20:00 Pertinent Lab Results Pertinent Lab Results: Laboratory Tests 01/31/23 01/31/23 01/31/23 19:31 19:31 19:31 WBC 8.9 RBC 2.50 L Hgb 7.8 L Hct 24.6 L MCV 98.4 H MCH 31.2 MCHC 31.7 RDW 14.9 Plt Count 386 MPV 8.8 L Immature Gran % (Auto) 0.3 Neut % (Auto) 72.7 Lymph % (Auto) 15.7 L [place] % (Auto) 6.8 Eos % (Auto) 4.0 Baso % (Auto) 0.5 Lymph # (Auto) 1.4 [place] # (Auto) 0.6 Eos # (Auto) 0.4 Baso # (Auto) 0.0 Abs Immat Gran (auto) 0.03 Absolute Neuts (auto) 6.5 Absolute Nucleated RBC 0.040 H Nucleated RBC % (auto) 0.5 H Sodium 134 L Potassium 3.9 Chloride 100 Carbon Dioxide 21 L Anion Gap 17 BUN 18 H Creatinine 1.15 Estim Creat Clear Calc TNP Estimated GFR 46 Random Glucose 102 Calcium 9.2 Magnesium 2.0 Total Bilirubin 0.3 AST 23 ALT 21 Alkaline Phosphatase 63 B-Natriuretic Peptide Total Protein 6.5 Albumin 3.4 L Urine Color Urine Appearance Urine pH Ur Specific [place] Urine Protein Urine Glucose (UA) Urine Ketones Urine Blood Urine Nitrite Ur Leukocyte Esterase Urine RBC Urine WBC Ur Squamous Epith Cells Urine Bacteria Hyaline Casts Stool Occult Blood COVID-19 (JONATAN) Invalid COVID-19 Clin Com See Note Blood Type Antibody Screen Crossmatch 01/31/23 01/31/23 01/31/23 19:31 19:31 21:29 WBC RBC Hgb Hct MCV MCH MCHC RDW Plt Count MPV Immature Gran % (Auto) Neut % (Auto) Lymph % (Auto) [place] % (Auto) Eos % (Auto) Baso % (Auto) Lymph # (Auto) [place] # (Auto) Eos # (Auto) Baso # (Auto) Abs Immat Gran (auto) Absolute Neuts (auto) Absolute Nucleated RBC Nucleated RBC % (auto) Sodium Potassium Chloride Carbon Dioxide Anion Gap BUN Creatinine Estim Creat Clear Calc Estimated GFR Random Glucose Calcium Magnesium Total Bilirubin AST ALT Alkaline Phosphatase B-Natriuretic Peptide 870 H Total Protein Albumin Urine Color Urine Appearance Urine pH Ur Specific [place] Urine Protein Urine Glucose (UA) Urine Ketones Urine Blood Urine Nitrite Ur Leukocyte Esterase Urine RBC Urine WBC Ur Squamous Epith Cells Urine Bacteria Hyaline Casts Stool Occult Blood Cancelled COVID-19 (JONATAN) COVID-19 Clin Com Blood Type A Positive Antibody Screen NEGATIVE Crossmatch See Detail 01/31/23 02/01/23 02/01/23 21:29 06:19 06:19 WBC 8.9 RBC 2.76 L Hgb 8.9 L Hct 27.1 L MCV 98.2 H MCH 32.2 MCHC 32.8 RDW 14.7 Plt Count 361 MPV 9.2 L Immature Gran % (Auto) Neut % (Auto) Lymph % (Auto) [place] % (Auto) Eos % (Auto) Baso % (Auto) Lymph # (Auto) [place] # (Auto) Eos # (Auto) Baso # (Auto) Abs Immat Gran (auto) Absolute Neuts (auto) Absolute Nucleated RBC 0.000 Nucleated RBC % (auto) 0.0 Sodium 135 Potassium 3.9 Chloride 103 Carbon Dioxide 23 Anion Gap 13 BUN 18 H Creatinine 0.84 Estim Creat Clear Calc 43.8 Estimated GFR > 60 Random Glucose 94 Calcium 9.0 Magnesium Total Bilirubin 1.1 H AST 22 ALT 17 Alkaline Phosphatase 57 B-Natriuretic Peptide Total Protein 5.8 L Albumin 3.1 L Urine Color Urine Appearance Urine pH Ur Specific [place] Urine Protein Urine Glucose (UA) Urine Ketones Urine Blood Urine Nitrite Ur Leukocyte Esterase Urine RBC Urine WBC Ur Squamous Epith Cells Urine Bacteria Hyaline Casts Stool Occult Blood POSITIVE COVID-19 (JONATAN) COVID-19 [place] Blood Type Antibody Screen Crossmatch 02/01/23 02/02/23 12:20 06:17 WBC 7.3 RBC 2.73 L Hgb 8.6 L Hct 26.8 L MCV 98.2 H MCH 31.5 MCHC 32.1 RDW 14.8 Plt Count 334 MPV 9.0 L Immature Gran % (Auto) Neut % (Auto) Lymph % (Auto) [place] % (Auto) Eos % (Auto) Baso % (Auto) Lymph # (Auto) [place] # (Auto) Eos # (Auto) Baso # (Auto) Abs Immat Gran (auto) Absolute Neuts (auto) Absolute Nucleated RBC 0.000 Nucleated RBC % (auto) 0.0 Sodium Potassium Chloride Carbon Dioxide Anion Gap BUN Creatinine Estim Creat Clear Calc Estimated GFR Random Glucose Calcium Magnesium Total Bilirubin AST ALT Alkaline Phosphatase B-Natriuretic Peptide Total Protein Albumin Urine Color Yellow Urine Appearance Clear Urine pH 6.0 Ur Specific [place] 1.020 Urine Protein Negative Urine Glucose (UA) Negative Urine Ketones Trace Urine Blood Negative Urine Nitrite Negative Ur Leukocyte Esterase Moderate (2+) H Urine RBC 0-2 Urine WBC 11-20 H Ur Squamous Epith Cells 3-5 Urine Bacteria None Seen Hyaline Casts 0-2 Stool Occult Blood COVID-19 (JONATAN) COVID-19 [place] Blood Type Antibody Screen Crossmatch Airway Mallampati Class: II TM Dist: >3cm Neck ROM: Limited Denture: Upper and Lower Loose/Missing/Broken Teeth: Yes, Upper and Lower Heart: RRR Lungs: distant but clear Assessment and Plan Final Anesthetic Review Family History of Problems with Anesthesia: No History of Problems with Anesthesia: No NPO: Yes ASA Class: IV Final Preanesthetic Review: Meds/Allgs Chart Reviewed, Consent Obtained/Reviewed and Anes Risks/Benef Reviewed Patient Risk: High Procedure Risk: Low Anesthetic Plan Anesthetic Plan: MAC: Disposition: Standard PACU
--- NOTE | 2023-02-03 07:34 | PC.NURSE ---
Patient arrived to preop wearing one hearing aid on right side. This allowed into procedure room per Melodie SHEETS and per patient request. Per Dr. Malone, Dentures can be left in mouth for procedure. Glasses removed.
--- NOTE | 2023-02-03 07:36 | MHC.SHP ---
Pre-Procedural Eval Section A Date of Service: 02/03/23 The patient is an INPATIENT: Yes The History & Physical has been completed within 30 days and I have reviewed it.: Yes Section B Chief Complaint: GI Bleed Allergies: Allergies Allergy/AdvReac Type Severity Reaction Status Date / Time gemifloxacin Allergy Unknown Rash Verified 02/03/23 06:48 montelukast [Singulair] Allergy Unknown mood swings Verified 02/03/23 06:48 prednisone Allergy Unknown sob Verified 02/03/23 06:48 Plan Diagnosis/Plan: Unchanged I have reviewed the history and physical and performed a pertinent physical examination on my patient. No changes have occurred unless specified. colonoscopy Time Spent With Patient Time: Total time managing care of this patient today ____ minutes.
--- NOTE | 2023-02-03 08:07 | W.PM.OPN ---
Operative Note Operative Note Date of Service: 02/03/23 Narrative: Operative Information Procedure Description: Colonoscopy Indication: anemia Anesthesia: MAC COLONOSCOPY Instrument: Olympus variable stiffness pediatric scope 190L Colonoscopy Monitoring: Vital signs and clinical assessment, continuous EKG monitoring, Pulse oximetry, Carbon Dioxide monitoring and blood pressure monitoring were done throughout the procedure. Colon withdrawal time was 14 minutes. Procedure: The patient was placed in the left lateral decubitis position and pre-procedure medications were administered. After a digital rectal examination of the ano-rectum, the video colonoscope was inserted into the rectum and advanced through the colon to the cecum/TI. The colonoscope was slowly withdrawn in a retrograde panoramic fashion and the colon mucosa was carefully examined including a retroflexed view of the rectum. Findings and interventions are described below. Procedure Difficulty: moderate Findings: Terminal Ileum-normal--no blood seen Cecum: 4-6 mm sessile polyp removed with cold forceps Ascending Colon: normal Transverse Colon - 8-9 mm sessile polyp removed with cold snare Descending Colon:normal Sigmoid Colon: moderate severe diverticulosis with luminal narrowing, Rectum: Retroflexion with small internal hemorrhoids, grade I Anorectum - normal Colon preparation: [place] Bowel Preparation Scale Right colon; 3 Transverse colon: 3 Left colon; 3 (0 = Unprepared colon segment with mucosa not seen due to solid stool that cannot be cleared. 1 = Portion of mucosa of the colon segment seen, but other areas of the colon segment not well seen due to staining, residual stool and/or opaque liquid. 2 = Minor amount of residual staining, small fragments of stool and/or opaque liquid, but mucosa of colon segment seen well. 3 = Entire mucosa of colon segment seen well with no residual staining, small fragments of stool or opaque liquid) Impression and Post Procedure Diagnosis: polyps internal hemorrhoids diverticular disease Plan: High fiber diet leaflet Avoid straining at stool, epsom salts and sitz bath, anusol supps or cream Repeat Colonoscopy as clinically indicated Above findings were reviewed with the patient and relevant handouts were provided if indicated.
[2023-02-03] MEDS: Acetaminophen 325 MG TABLET 650 MG PO (10:29)
[2023-02-03] MEDS: Fluticasone Propionate Nasal 16 GM SPRAY 2 SPRAY NOSTRIL-B (10:30)
[2023-02-03] MEDS: Propylene Glycol/PEG 400 Gel Eye Drops 10ML 1 DROP EYE-BOTH (10:30)
[2023-02-03] MEDS: 0.9 % Sodium Chloride Flush 3 ML SYRINGE IVFLUSH (10:31)
[2023-02-03] MEDS: lisinopriL 20 MG TABLET PO (10:40)
--- NOTE | 2023-02-03 10:46 | PM.DS ---
DS: Providers Provider Date of Service: 02/03/23 Date of admission: 01/31/23 22:02 Primary care physician: Freida Yarbrough MD Consults: 01/31/23 22:01 Consult to Gastroenterology Routine Consulting Provider: Shabana Yost Reason for consultation: GI bleed Has provider been notified: No DS: Diagnosis Discharge Diagnosis (1) Symptomatic anemia: Status: Acute (2) Guaiac positive stools: Status: Acute (3) GI bleed: Status: Acute DS: Summary Hospital Course Hospital Course: Date of Service: 01/31/23 Attending physician on admission: Deborah Dang Chief Complaint: sob, weakness 77 year old female with history HFpEF, pulmonary hypertension, atrial fibrillation on eliquis, cardiomyopathy, COPD with chronic hypoxic respiratory failure on 1-2 L supplemental O2 at baseline, hypertension, hyperlipidemia, history of Meniere's disease, osteoporosis on Reclast, JEIMY, sick sinus syndrome s/p pacemaker placement, and chronic hyponatremia presented to the ED earlier today at the recommendation of her PCP due to anemia.? She was recently hospitalized at [facility] for similar symptoms and found to have hemoglobin of 7.3. She was not transfused. She was evaluated by GI per patient and was told she should not undergo scope at this time due to anesthesia risk with recent cardiac history. She was diagnosed with afib, chf, and cardiomyopathy following influenza A diagnosis in 07/14.? She is symptomatic with increasing dyspnea on exertion, fatigue, and generalized weakness ongoing for several weeks since completing cardiac rehab.? She has also had intermittent nausea and vertigo but states this is longstanding related to her Meniere's disease. She denies any fevers, chills, abdominal pain, vomiting, diarrhea, constipation, melena, hematochezia, orthopnea, PND, lower extremity edema, lightheadedness, or chest pain. In the ED, patient tachypneic to 24 with soft blood pressure 100/59, vitals otherwise stable.? Initial H/H 7.7/24.5, repeat 7.8/24.6%.? Renal function baseline, electrolyte levels normal except for mild hyponatremia which is chronic of 134.? Initial troponin 92, BNP 870 (which is consistent with baseline.).? She did discuss symptoms with her director [employer] who did order chest CTA which was negative for any pulmonary embolism but showed mediastinal left hilar lymphadenopathy an 8 mm left upper lobe nodule.? Stool occult blood was positive.? EKG showed atrial fibrillation, rate 74 without any acute changes. Hospital course: 77 year old female with history HFpEF, pulmonary hypertension, atrial fibrillation on eliquis, cardiomyopathy, COPD with chronic hypoxic respiratory failure on 1-2 L supplemental O2 at baseline, hypertension, hyperlipidemia, history of Meniere's disease, osteoporosis on Reclast, JEIMY, sick sinus syndrome s/p pacemaker placement, and chronic hyponatremia. #Acute symptomatic anemia, -no cause of anemia found, stool guaiac positive, patient underwent upper endoscopy and colonoscopy by Dr. Keith upper endoscopy was unremarkable, colonoscopy showed internal hemorrhoids and diverticular disease, no source of bleeding found GI recommend outpatient video capsule study and recommend to resume Eliquis from February 04 patient received 1 unit of packed RBC hemoglobin improved to 8.6, iron studies showed low iron saturation , with normal TIBC will place patient on iron supplement, recommend outpatient GI follow-up. Repeat CBC in 1 week. # chronic heart failure preserved ejection fraction -no acute exacerbation,BNP baseline, CXR unremarkable, recommend to continue Lasix 20 mg twice daily . # COPD with chronic hypoxic respiratory failure on home O2, no acute exacerbation, recommend to continue home inhalers . # paroxysmal atrial fibrillation -rate controlled, pacemaker in place, not on rate control drugs, resume Eliquis from tomorrow 02/04/23. # hypertension -blood pressure soft, on arrival will lower dose of lisinopril to 10 mg . # hypothyroidism -continue Synthroid Time Spent with Patient Time attestation: Total time managing care of this patient today ____ minutes. Discharge coordination time: Greater than 30 minutes Quality: Safe Use of Opioids Does Pt have an Active Cancer Diagnosis on the Problem List?: No Quality: Stroke Does the patient have a stroke diagnosis?: No Physical Exam Vital Signs: Vital Signs: Last Vital Signs Temp 97.1 F 02/03/23 08:40 Pulse 77 02/03/23 08:40 Resp 20 02/03/23 08:40 BP 137/75 02/03/23 08:40 Pulse Ox 98 02/03/23 08:40 O2 Del Method Nasal Cannula 02/03/23 08:40 O2 Flow Rate 3 02/03/23 08:40 Oxygen Flow Rate 2 02/03/23 07:34 BMI result Body Mass Index 23.5 Const: Other: General: Ax O X 3, no acute distress Neck supple Resp:? Lungs clear to auscultation, no wheeze, no rhonchi CVS: S1,S2,RRR GI: +BS, nontender, no distention Skin: No rash Neuro:? motor grossly intact Psych: appropriate affect DS: Data Data Completed and Pending Pending studies at discharge: Pending at discharge 02/02/23 12:00 Surgical [PTH] Routine 02/03/23 07:53 Surgical [PTH] Routine Labs on day of discharge: Preliminary micro results at discharge 02/01/23 Unknown Urine Culture - Preliminary Urine clean catch - Urine graves top Culture in progress. Discharge Plan Discharge Anticipated Discharge Date/Time: 02/03/23 13:26 Patient Disposition: Home, Self-Care Discharge Diagnosis: Acute symptomatic anemia Chronic heart failure with preserved EF Referrals: Freida Yarbrough MD [Primary Care Provider] - 1 Week Discharge Medications: New lisinopril 10 mg tablet 10 mg PO DAILY Qty: 30 0RF ferrous sulfate 324 mg (65 mg iron) tablet,delayed release (DR/EC) 324 mg PO BID Qty: 60 0RF Continued pravastatin 20 mg tablet 20 mg PO BEDTIME calcium carbonate [Calcium 600] 600 mg calcium (1,500 mg) Tablet 600 mg PO BID fluticasone propionate 50 mcg/actuation Cassandra,Suspension 2 spray INTRANASAL BID Rx Instructions: administer into each nostril magnesium 200 mg Tablet 400 mg PO BEDTIME cholecalciferol (vitamin D3) [Vitamin D3] 50 mcg (2,000 unit) Tablet 50 mcg PO BEDTIME furosemide 20 mg Tablet 20 mg PO BID Systane (PF) 0.4-0.3 % Dropperette 1 drp OPHTHALMIC (EYE) BID Rx Instructions: instill 1 drop into both eyes ipratropium-albuterol 0.5 mg-3 mg(2.5 mg base)/3 mL solution for nebulization 3 ml inhalation Q8H levothyroxine 25 mcg tablet 25 mcg PO DAILY@0600 acetaminophen [Tylenol] 325 mg Tablet 650 mg PO Q6H PRN (Reason: Pain) fluticasone propion-salmeterol [Wixela Inhub] 250-50 mcg/dose blister with device 1 inh inhalation BID Qty: 60 3RF albuterol sulfate 90 mcg/actuation HFA aerosol inhaler 2 puff inhalation QID PRN (Reason: Shortness Of Breath Or Wheezing) Qty: 8.5 2RF Held Eliquis 5 mg tablet 5 mg PO BID Qty: 60 0RF Hold Instructions: Resume on 02/04/23. Discontinued lisinopril 20 mg tablet 20 mg PO DAILY Qty: 90 1RF Discharge Orders: Discharge Order (Routine); Ordered 02/03/23 Ordered By: Jessica Alonso Diet: Low fat, low cholesterol Activity on Discharge: As tolerated Stand Alone Forms: Patient Portal Discharge page Other Ambulatory Orders: Complete Blood Count no Diff (Routine) Timeframe: 1 Week Facility: [facility] - Location: Laboratory Ordered By: Jessica Alonso Care Plan Goals: Take iron supplement, continue vitamin-C with iron for better absorption Take high-fiber diet to avoid constipation Dose of lisinopril decreased to 10 mg by mouth daily Check CBC in 1 week Resume Eliquis from tomorrow morning, hold Eliquis if noted to have any bloody stool or dark-colored vomitus Continue Prilosec as prescribed at [facility] Return to check with worsening shortness of breath, chest pain,or weakness Health Concerns: Atrial fibrillation/CHF continue all home medications Plan of Treatment: Outpatient follow-up with supervisor [employer] Dr. Keith for video capsule study call for appointment Outpatient follow-up with PCP Assessment: as above
[2023-02-03] MEDS: Fluticasone/Vilanterol 100/25 BLST.W.DEV 1 PUFF INHALE (11:50)
--- NOTE | 2023-02-03 14:48 | MHC.CM.PN ---
Pt has been medically cleared for D/C home with resumption of [facility]. Pts spouse will transport her home.
== END 2023-02-03 15:37 | disposition home or self-care (01) | DRG 813 ==
LOC: HO.ED 20:17 → HO.EDOVER 22:09 → HO.IMC 02-01 02:34
PROVIDERS: Internal Medicine; Internal Medicine Gastroenterology; Physician Assistant; Admitting Provider Internal Medicine; Emergency Provider Emergency Medicine; PCP Internal Medicine; Visit Provider Hospitalist
PROC: 0DJ08ZZ Inspection of Upper Intestinal Tract, Via Natural or Artificial Opening Endoscopic (ICD-10-PCS; CPT 43235; principal; 2023-02-02 16:40)
PROC: 0DJD8ZZ Inspection of Lower Intestinal Tract, Via Natural or Artificial Opening Endoscopic (ICD-10-PCS; CPT 45378; principal; 2023-02-03 07:30)
DX: D68.32 Hemorrhagic disorder due to extrinsic circulating anticoagulants (principal); K57.31 Diverticulosis of large intestine without perforation or abscess with bleeding; D62 Acute posthemorrhagic anemia; I50.32 Chronic diastolic (congestive) heart failure; J96.11 Chronic respiratory failure with hypoxia; I49.5 Sick sinus syndrome; E78.5 Hyperlipidemia, unspecified; I48.0 Paroxysmal atrial fibrillation; J44.9 Chronic obstructive pulmonary disease, unspecified; E03.9 Hypothyroidism, unspecified; I11.0 Hypertensive heart disease with heart failure; K22.70 Barrett's esophagus without dysplasia; D12.0 Benign neoplasm of cecum; T45.515A Adverse effect of anticoagulants, initial encounter; G47.33 Obstructive sleep apnea (adult) (pediatric); K63.5 Polyp of colon; Z20.822 Contact with and (suspected) exposure to COVID-19; Z99.81 Dependence on supplemental oxygen; Z95.0 Presence of cardiac pacemaker; Z79.01 Long term (current) use of anticoagulants; Z79.890 Hormone replacement therapy; Z79.899 Other long term (current) drug therapy
CPT/HCPCS: 36415; 71045; 80053; 81001; 82272; 83735; 83880; 85025; 85027; 86850; 86900; 86901; 86923; 87086; 87635; 88305; 93005; 94640; 99285; P9016

== ENCOUNTER → 2023-01-31 19:07 | Outpatient (BNV) | payer MEDICARE, SELFPAY ==
[2022-12-20 14:49] VITALS: BP 118/60; BMI 25.0
[2023-01-12 10:19] VITALS: BP 90/52; BP 92/48
== END ==
PROVIDERS: Admitting Provider Internal Medicine; Emergency Provider Emergency Medicine; PCP Internal Medicine; Visit Provider Internal Medicine Cardiovascular Disease
DX: I45.10 Unspecified right bundle-branch block (principal)
CPT/HCPCS: 93010

== ENCOUNTER 2023-01-31 22:02 | Outpatient (BNV) | payer MEDICARE, SELFPAY ==
[2022-12-20 14:49] VITALS: BP 118/60; BMI 25.0
[2023-01-12 10:19] VITALS: BP 90/52; BP 92/48
== END 2023-02-01 15:53 ==
PROVIDERS: Admitting Provider Internal Medicine; Emergency Provider Emergency Medicine; PCP Internal Medicine; Visit Provider Internal Medicine Cardiovascular Disease
DX: I45.10 Unspecified right bundle-branch block (principal); I48.91 Unspecified atrial fibrillation
CPT/HCPCS: 93010

== ENCOUNTER → 2023-01-31 22:02 | Outpatient (BNV) | payer MEDICARE, SELFPAY ==
[2022-12-20 14:49] VITALS: BP 118/60; BMI 25.0
[2023-01-12 10:19] VITALS: BP 90/52; BP 92/48
== END ==
PROVIDERS: Admitting Provider Internal Medicine; Emergency Provider Emergency Medicine; PCP Internal Medicine; Visit Provider Internal Medicine
DX: D64.9 Anemia, unspecified (principal); R19.5 Other fecal abnormalities; K92.2 Gastrointestinal hemorrhage, unspecified
CPT/HCPCS: 99223; 99232; 99239

== ENCOUNTER → 2023-01-31 22:02 | Outpatient (BNV) | payer MEDICARE, SELFPAY ==
[2022-12-20 14:49] VITALS: BP 118/60; BMI 25.0
[2023-01-12 10:19] VITALS: BP 90/52; BP 92/48
== END ==
PROVIDERS: Admitting Provider Internal Medicine; Emergency Provider Emergency Medicine; PCP Internal Medicine; Visit Provider Internal Medicine Gastroenterology
DX: D64.9 Anemia, unspecified (principal); D12.0 Benign neoplasm of cecum; D12.3 Benign neoplasm of transverse colon; K57.30 Diverticulosis of large intestine without perforation or abscess without bleeding; K64.0 First degree hemorrhoids
CPT/HCPCS: 43239; 45380; 45385; 99222

== ENCOUNTER 2023-02-08 09:30 | Outpatient (AMB) | payer MEDICARE, SELFPAY ==
[2022-12-20 14:49] VITALS: BP 118/60; BMI 25.0
[2023-01-12 10:19] VITALS: BP 90/52; BP 92/48
--- NOTE | 2023-02-08 09:39 | AM.OFFWIN_ITS ---
Intake Int[place] [facility] [facility] [place] Patient Tobacco Use Status: Former Tobacco user Quit Date: 1989 Allergies gemifloxacin Allergy (Unknown, Verified 02/03/23 06:48) Rash montelukast [Singulair] Allergy (Unknown, Verified 02/03/23 06:48) mood swings prednisone Allergy (Unknown, Verified 02/03/23 06:48) sob PFSH Medical History Cardiac pacemaker in situ CHF (congestive heart failure) COPD (chronic obstructive pulmonary disease) HTN (hypertension) Hyperlipemia Hyponatremia Meniere disease Osteoporosis Pneumonia Rhabdomyolysis Sleep apnea SSS (sick sinus syndrome) Surgical History History of cardiac cath History of endoscopy History of hysterectomy History of permanent cardiac pacemaker placement Family History Father Lung cancer Mother COPD (chronic obstructive pulmonary disease) Social History Household Members: Significant Other Housing: House Do you presently have visiting nurse or other home services: Yes Alcohol intake: former Year quit: 1989 Patient Tobacco Use Status: Former Tobacco user Quit Date: 1989 Years Smoked: 30 +/- e-Cigarette/Vaping Use: Never Used Second Hand Smoke Exposure: No service: No Current occupational status: retired Cognitive needs: No Hearing needs: Yes Vision needs: Yes Assessment & Plan Assessment & Plan Medications: Discontinued ipratropium-albuterol 0.5 mg-3 mg(2.5 mg base)/3 mL 3 mL inhalation Q6H 180 mL 3RF J44.9 - Chronic obstructive pulmonary disease, unspecified levothyroxine 25 mcg PO DAILY 90 tabs 1RF Coding Diagnoses
[2023-02-08 09:41] VITALS: BP 114/68; PULSE 78; O2SAT 92
--- NOTE | 2023-02-08 09:41 | A.OFFPC_ITS ---
Vital Signs 02/08/23 09:41 Weight 127 lb BP 114/68 Blood Pressure Location Lt brachial Position Sitting Pulse 78 Pulse Source Pulse Oximeter Pulse Oximetry (%) 92 Oxygen Delivery Method Nasal Cannula Intake Visit Reasons: [facility] [place] /Blood transfusion Allergies gemifloxacin Allergy (Unknown, Verified 02/08/23 09:41) Rash montelukast [Singulair] Allergy (Unknown, Verified 02/08/23 09:41) mood swings prednisone Allergy (Unknown, Verified 02/08/23 09:41) sob Tobacco use date assessed: 11/17/22 Dental Screening Dental Screen Date: 02/08/23 Did you have a dental visit in the last 12 months?: Yes Did you have a dental problem in the last 6 months where you did not have access to dental care?: No Was dental information given to patient?: Patient has dentist HPI [facility] [place]/ /Blood transfusion HPI Details Pt presents for f/u of hospitalization at [facility] and [facility] [place] for symptomatic iron deficiency anemia with CHF exacerbation. Patient was transfused 1 unit of PRBCs and EGD colonoscopy were negative for acute bleeding She is feeling better but still very weak. Patient has capsule endoscopy scheduled next month. Patient has baseline dyspnea on exertion and has been using supplemental O2 24 hours 7 days a week. [facility] Medical History (Updated 02/08/23 @ 10:43 by Freida Yarbrough MD) Cardiac pacemaker in situ CHF (congestive heart failure) Chronic anticoagulation COPD (chronic obstructive pulmonary disease) HTN (hypertension) Hyperlipemia Hyponatremia Meniere disease Osteoporosis PAF (paroxysmal atrial fibrillation) Pneumonia Renal failure Rhabdomyolysis Sleep apnea SSS (sick sinus syndrome) Surgical History History of cardiac cath History of endoscopy History of hysterectomy History of permanent cardiac pacemaker placement Family History Father Lung cancer Mother COPD (chronic obstructive pulmonary disease) Social History Household Members: Significant Other Housing: House Do you presently have visiting nurse or other home services: Yes Alcohol intake: former Year quit: 1989 Patient Tobacco Use Status: Former Tobacco user Quit Date: 1989 Years Smoked: 30 +/- e-Cigarette/Vaping Use: Never Used Second Hand Smoke Exposure: No service: No Current occupational status: retired Cognitive needs: No Hearing needs: Yes Vision needs: Yes Questionnaire Thrive Questionnaire Date Thrive assessed: 02/01/23 YUDELKA-7 AMB Questionnaire YUDELKA-7 Date YUDELKA - 7 assessed: 12/29/22 Source: Developed by Drs. Jerry Munoz, Karishma Melgar, Joaquin Ariza and colleagues, with an educational gaby from [employer]. Review of Systems Const All systems reviewed & are unremarkable except as noted in HPI and below Reports no additional complaints Eyes Reports no additional complaints ENT Reports no additional complaints Card Reports no additional complaints Resp Reports no additional complaints GI Reports no additional complaints Reports no additional complaints Physical exam (Primary Care) Vital Signs: Last Vital Signs Pulse 78 02/08/23 09:41 BP 114/68 02/08/23 09:41 Pulse Ox 83 L 02/08/23 09:41 Oxygen Delivery Method Nasal Cannula 02/08/23 09:41 Tobacco/Smoking Status: Tobacco use Status Tobacco use date assessed 11/17/22 02/08/23 09:44 Patient Tobacco Use Status Former Tobacco user 02/08/23 09:44 e-Cigarette/Vaping Use Never Used 02/08/23 09:44 Thrive Assessment: Date of Thrive Assessment Date Thrive assessed 02/01/23 02/08/23 09:44 Const General: no acute distress HENMT Face and sinus: Yes normal facial exam Throat: Yes posterior oropharynx normal Neck Neck: Yes supple Resp Effort & Inspection: able to speak in complete sentences Auscultation: diminished lung sounds Cardio Rhythm: regular rhythm Heart sounds: S1 normal heart sound present and S2 normal heart sound present GI Palpation (GI): Soft to palpation Auscultation: normal bowel sounds Extrem Other: 2+ pitting edema bilaterally Assessment and Plan Assessment & Plan (1) Dysuria: Code(s): R30.0 - Dysuria Plan: Check urine culture for chronic dysuria (2) Hyponatremia: Code(s): E87.1 - Hypo-osmolality and hyponatremia Plan: Check comprehensive panel (3) Hyperlipemia: Code(s): E78.5 - Hyperlipidemia, unspecified (4) Anemia: Code(s): D64.9 - Anemia, unspecified Plan: Check CBC iron count and patient was advised to restart iron supplement with vitamin-C. (5) Cardiomyopathy: Comment: ECHO 07/14: EF 25%, ECHO 10/13 EF 55% basal inferior segment hypokinesis, basal inferior septal akinesis Code(s): I42.9 - Cardiomyopathy, unspecified Plan: Continue current medications (6) COPD (chronic obstructive pulmonary disease): Comment: O2 dependent, Dr. Rhoades Code(s): J44.9 - Chronic obstructive pulmonary disease, unspecified Plan: The supplemental O2 and inhalers. Follow-up in 1 month Orders: Orders IRON PROFILE Today D64.9 - Anemia, unspecified, E78.5 - Hyperlipidemia, unspecified, E87.1 - Hypo-osmolality and hyponatremia, I42.9 - Cardiomyopathy, unspecified, R30.0 - Dysuria Complete Blood Count Auto Diff Today D64.9 - Anemia, unspecified, E78.5 - Hyperlipidemia, unspecified, E87.1 - Hypo-osmolality and hyponatremia, I42.9 - Cardiomyopathy, unspecified, R30.0 - Dysuria Comprehensive Met. Panel Today D64.9 - Anemia, unspecified, E78.5 - Hyperlipidemia, unspecified, E87.1 - Hypo-osmolality and hyponatremia, I42.9 - Cardiomyopathy, unspecified, R30.0 - Dysuria TSH reflex Free T4 Today D64.9 - Anemia, unspecified, E78.5 - Hyperlipidemia, unspecified, E87.1 - Hypo-osmolality and hyponatremia, I42.9 - Cardiomyopathy, unspecified, R30.0 - Dysuria Urine Culture Today R30.0 - Dysuria Medications: Discontinued ipratropium-albuterol 0.5 mg-3 mg(2.5 mg base)/3 mL 3 mL inhalation Q6H 180 mL 3RF J44.9 - Chronic obstructive pulmonary disease, unspecified levothyroxine 25 mcg PO DAILY 90 tabs 1RF Coding Level of Care Code Est Pt Level 4 (59329) Diagnoses Dysuria R30.0 Hyponatremia E87.1 Hyperlipemia E78.5 Anemia D64.9 Cardiomyopathy I42.9 COPD (chronic obstructive pulmonary disease) J44.9
== END 2023-02-08 10:43 | disposition home or self-care (01) ==
PROVIDERS: PCP Internal Medicine; Visit Provider Internal Medicine
DX: R30.0 Dysuria (principal); E87.1 Hypo-osmolality and hyponatremia; J44.9 Chronic obstructive pulmonary disease, unspecified; I42.9 Cardiomyopathy, unspecified; D64.9 Anemia, unspecified; E78.5 Hyperlipidemia, unspecified
CPT/HCPCS: 99214

== ENCOUNTER 2023-02-08 10:35 | Outpatient (REF) | payer MEDICARE, SELFPAY ==
[2022-12-20 14:49] VITALS: BP 118/60; BMI 25.0
[2023-01-12 10:19] VITALS: BP 90/52; BP 92/48
[2023-02-08 13:03] LABS: MANUAL DIFF FLAG NO
[2023-02-08 13:34] LABS: Basophils Percent Auto 0.5 % (0-2); Eosinophils Absolute Auto 0.1 X10*3/uL (0.0-0.4); Eosinophils Percent Auto 1.4 % (0-4); Hematocrit 29.8 % (37.0-47.0); Hemoglobin 9.3 g/dl (12.0-16.0); Imm Gran Abs Auto 0.03 X10*3/uL (0.00-0.03); Imm Gran Pct Auto 0.4 % (0.0-0.4); Lymphocytes Absolute Auto 0.7 X10*3/uL (1.2-4.9); Lymphocytes Percent Auto 7.9 % (20-40); Mean Corpuscular HGB Conc 31.2 g/dl (31.0-35.0); Mean Corpuscular Hemoglobin 31.2 pg (27.0-33.0); Monocytes Absolute Auto 0.4 X10*3/uL (0.1-1.2); Monocytes Percent Auto 4.5 % (2-11); Neutrophils Absolute Auto 7.1 x10*3/uL (2.0-8.3); Neutrophils Percent Auto 85.3 % (45-73); Platelet Count 365 X10*3/uL (160-400); Red Blood Count 2.98 X10*6/uL (4.20-5.50); Red Cell Distribution Width 14.8 % (11.0-16.0); White Blood Count 8.4 X10*3/uL (4.8-10.8)
[2023-02-09 02:03] LABS: Alanine Aminotransferase 14 U/L (0-31); Albumin Level 3.5 g/dL (3.5-5.0); Alkaline Phosphatase 62 U/L (39-117); Anion Gap 13 (12-20); Aspartate Amino Transferase 20 U/L (5-31); Bilirubin Total 0.4 mg/dL (0.0-1.0); Blood Urea Nitrogen 11 mg/dL (9-16); Calcium 8.9 mg/dL (8.4-10.2); Carbon Dioxide 25 mmol/L (22-29); Chloride 102 mmol/L (96-108); Estimated Glomerular Filt Rate > 60; Glucose Random 89 mg/dL (60-115); Iron 58 mcg/dL (30-160); Percent Iron Saturation 23 % (15-50); Potassium 3.5 mmol/L (3.3-5.1); Sodium 136 mmol/L (135-145); Total Iron Binding Capacity 255 mcg/dL (228-428); Total Protein 6.3 g/dL (6.5-8.0); Unsaturated Iron Binding 197 ug/dL
== END 2023-02-08 10:36 | disposition home or self-care (01) ==
LOC: HO.HMGCLDS 10:35
PROVIDERS: PCP Internal Medicine; Visit Provider Internal Medicine
DX: D64.9 Anemia, unspecified (principal); E78.5 Hyperlipidemia, unspecified; E87.1 Hypo-osmolality and hyponatremia; I42.9 Cardiomyopathy, unspecified; R30.0 Dysuria
CPT/HCPCS: 36415; 80053; 83540; 84443; 85025

== ENCOUNTER 2023-02-20 08:30 | Outpatient (AMB) | payer MEDICARE, SELFPAY ==
[2022-12-20 14:49] VITALS: BP 118/60; BMI 25.0
[2023-01-12 10:19] VITALS: BP 90/52; BP 92/48
--- NOTE | 2023-03-07 17:29 | A.OFFVIS_ITS ---
Intake Intake Visit Reasons: [facility] ENDOS[facility] Allergies gemifloxacin Allergy (Unknown, Verified 02/08/23 09:41) Rash montelukast [Singulair] Allergy (Unknown, Verified 02/08/23 09:41) mood swings prednisone Allergy (Unknown, Verified 02/08/23 09:41) sob [facility] Medical History (Updated 02/08/23 @ 10:43 by Freida Yarbrough MD) Cardiac pacemaker in situ CHF (congestive heart failure) Chronic anticoagulation COPD (chronic obstructive pulmonary disease) HTN (hypertension) Hyperlipemia Hyponatremia Meniere disease Osteoporosis PAF (paroxysmal atrial fibrillation) Pneumonia Renal failure Rhabdomyolysis Sleep apnea SSS (sick sinus syndrome) Surgical History History of cardiac cath History of endoscopy History of hysterectomy History of permanent cardiac pacemaker placement Family History Father Lung cancer Mother COPD (chronic obstructive pulmonary disease) Social History Household Members: Significant Other Housing: House Do you presently have visiting nurse or other home services: Yes Alcohol intake: former Year quit: 1989 Patient Tobacco Use Status: Former Tobacco user Quit Date: 1989 Years Smoked: 30 +/- e-Cigarette/Vaping Use: Never Used Second Hand Smoke Exposure: No service: No Current occupational status: retired Cognitive needs: No Hearing needs: Yes Vision needs: Yes Office Procedures AMB Capsule Endoscopy Procedure Notes: Capsule endoscopy date of service: 02/20/23 Indication: Anemia Findings: GEJ appeared normal. Stomach with granular and patchy erythematous mucosa. Duodenum entered 11 mins. Small bowel with few scattered chylous cysts which are benign. No active bleeding or ulcers, masses seen. Cecum reached at 3 hr 35 Conclusion: Chronic gastritis chylous cysts, benign no active bleeding cont to monitor HGb -if overt bleeding can repeat studies Capsule Endoscopy CPT Code: 25346 - Capsule Endoscopy Assessment & Plan Assessment & Plan (1) Anemia: Code(s): D64.9 - Anemia, unspecified Medications: Discontinued ipratropium-albuterol 0.5 mg-3 mg(2.5 mg base)/3 mL 3 mL inhalation Q6H 180 mL 3RF J44.9 - Chronic obstructive pulmonary disease, unspecified levothyroxine 25 mcg PO DAILY 90 tabs 1RF Coding Level of Care Code Procedure Only Diagnoses Anemia D64.9 CPT Codes AMB Capsule Endoscopy - Capsule Endoscopy CPT Code: 49548 - Capsule Endoscopy ([id number])
== END 2023-02-20 08:49 | disposition home or self-care (01) ==
PROVIDERS: PCP Internal Medicine; Visit Provider Internal Medicine Gastroenterology
DX: D50.9 Iron deficiency anemia, unspecified (principal)
CPT/HCPCS: 91110

== ENCOUNTER → 2023-02-20 08:30 | Outpatient (BNVA) | payer MEDICARE, SELFPAY ==
[2022-12-20 14:49] VITALS: BP 118/60; BMI 25.0
[2023-01-12 10:19] VITALS: BP 90/52; BP 92/48
== END ==
PROVIDERS: PCP Internal Medicine; Visit Provider Internal Medicine Gastroenterology
DX: D64.9 Anemia, unspecified (principal); K29.50 Unspecified chronic gastritis without bleeding; I89.8 Other specified noninfective disorders of lymphatic vessels and lymph nodes
CPT/HCPCS: 91110

== ENCOUNTER → 2023-02-28 23:59 | Outpatient (BNV) | payer MEDICARE, SELFPAY ==
[2022-12-20 14:49] VITALS: BP 118/60; BMI 25.0
[2023-01-12 10:19] VITALS: BP 90/52; BP 92/48
--- NOTE | 2023-03-29 12:19 | A.OFFVIS_ITS ---
Intake Intake Visit Reasons: Remote Device Check- [facility] Allergies gemifloxacin Allergy (Unknown, Verified 03/15/23 11:46) Rash montelukast [Singulair] Allergy (Unknown, Verified 03/15/23 11:46) mood swings prednisone Allergy (Unknown, Verified 03/15/23 11:46) sob [facility] Medical History (Updated 03/29/23 @ 12:20 by Sunil Coto MD) Cardiac pacemaker in situ CHF (congestive heart failure) Chronic anticoagulation COPD (chronic obstructive pulmonary disease) HTN (hypertension) Hyperlipemia Hyponatremia Meniere disease Osteoporosis PAF (paroxysmal atrial fibrillation) Pneumonia Renal failure Rhabdomyolysis Sleep apnea SSS (sick sinus syndrome) Surgical History History of cardiac cath History of endoscopy History of hysterectomy History of permanent cardiac pacemaker placement Family History Father Lung cancer Mother COPD (chronic obstructive pulmonary disease) Social History Household Members: Spouse Housing: House Do you presently have visiting nurse or other home services: Yes (VNA and OT) Alcohol intake: never Patient Tobacco Use Status: Former Tobacco user Quit Date: 1989 Years Smoked: 30 +/- e-Cigarette/Vaping Use: Never Used Second Hand Smoke Exposure: No Advance Directives Date on File: 02/06/23 service: No Current occupational status: retired Cognitive needs: No Hearing needs: Yes Vision needs: Yes Office Procedures Cardiac Device Check Cardiac Device Check Details: [place] permanent pacemaker. Longevity 3.3 years. VVIR mode. Ventricular paced 8.7%. No new alerts. [id number] Cardiac Device Interrogation, pacemaker Procedure code (CPT) selection complete Assessment & Plan Assessment & Plan (1) SSS (sick sinus syndrome): Comment: pacemaker Code(s): I49.5 - Sick sinus syndrome Medications: Discontinued ipratropium-albuterol 0.5 mg-3 mg(2.5 mg base)/3 mL 3 mL inhalation Q6H 180 mL 3RF J44.9 - Chronic obstructive pulmonary disease, unspecified levothyroxine 25 mcg PO DAILY 90 tabs 1RF Coding Level of Care Code Procedure Only Diagnoses SSS (sick sinus syndrome) I49.5 CPT Codes Cardiac Device Check - Cardiac Device 12: [id number] Cardiac Device Interrogation, pacemaker ([id number])
== END ==
PROVIDERS: PCP Internal Medicine; Visit Provider Internal Medicine Cardiovascular Disease
DX: I49.5 Sick sinus syndrome (principal); Z95.0 Presence of cardiac pacemaker
CPT/HCPCS: 93294

== ENCOUNTER 2023-03-09 09:56 | Outpatient (REF) | payer MEDICARE, SELFPAY ==
[2022-12-20 14:49] VITALS: BP 118/60; BMI 25.0
[2023-01-12 10:19] VITALS: BP 90/52; BP 92/48
[2023-03-09 13:29] LABS: MANUAL DIFF FLAG NO
[2023-03-09 13:52] LABS: Basophils Percent Auto 0.6 % (0-2); Eosinophils Absolute Auto 0.1 X10*3/uL (0.0-0.4); Eosinophils Percent Auto 0.9 % (0-4); Hematocrit 36.7 % (37.0-47.0); Hemoglobin 11.7 g/dl (12.0-16.0); Imm Gran Abs Auto 0.01 X10*3/uL (0.00-0.03); Imm Gran Pct Auto 0.1 % (0.0-0.4); Lymphocytes Absolute Auto 0.8 X10*3/uL (1.2-4.9); Lymphocytes Percent Auto 11.6 % (20-40); Mean Corpuscular HGB Conc 31.9 g/dl (31.0-35.0); Mean Corpuscular Hemoglobin 30.7 pg (27.0-33.0); Mean Corpuscular Volume 96.3 fL (80.0-98.0); Mean Platelet Volume 9.4 fL (9.4-12.3); Monocytes Absolute Auto 0.4 X10*3/uL (0.1-1.2); Neutrophils Absolute Auto 5.5 x10*3/uL (2.0-8.3); Neutrophils Percent Auto 80.8 % (45-73); Platelet Count 297 X10*3/uL (160-400); Red Blood Count 3.81 X10*6/uL (4.20-5.50); Red Cell Distribution Width 15.9 % (11.0-16.0); White Blood Count 6.8 X10*3/uL (4.8-10.8)
[2023-03-09 13:53] LABS: Hematocrit 36.8 % (37.0-47.0); Hemoglobin 11.7 g/dl (12.0-16.0); Mean Corpuscular HGB Conc 31.8 g/dl (31.0-35.0); Mean Corpuscular Hemoglobin 30.7 pg (27.0-33.0); Mean Corpuscular Volume 96.6 fL (80.0-98.0); Mean Platelet Volume 9.5 fL (9.4-12.3); Platelet Count 301 X10*3/uL (160-400); Red Blood Count 3.81 X10*6/uL (4.20-5.50); Red Cell Distribution Width 15.9 % (11.0-16.0); White Blood Count 6.8 X10*3/uL (4.8-10.8)
[2023-03-09 14:17] LABS: Alanine Aminotransferase 12 U/L (0-31); Albumin Level 3.9 g/dL (3.5-5.0); Alkaline Phosphatase 54 U/L (39-117); Anion Gap 13 (12-20); Aspartate Amino Transferase 23 U/L (5-31); Bilirubin Total 0.6 mg/dL (0.0-1.0); Blood Urea Nitrogen 9 mg/dL (9-16); Calcium 9.4 mg/dL (8.4-10.2); Carbon Dioxide 24 mmol/L (22-29); Chloride 103 mmol/L (96-108); Cholesterol 177 mg/dL; Estimated Glomerular Filt Rate > 60; Glucose Fasting 97 mg/dL (60-99); HDL Cholesterol 75 mg/dL; LDL Cholesterol Calculated 92 mg/dl; Potassium 3.6 mmol/L (3.3-5.1); Sodium 136 mmol/L (135-145); Total Protein 7.2 g/dL (6.5-8.0); Triglycerides 53 mg/dL
[2023-03-09 14:19] LABS: TSH reflex Free T4 1.57 uIU/mL (0.32-4.0)
== END 2023-03-09 09:57 | disposition home or self-care (01) ==
LOC: HO.HMGCLDS 09:56
PROVIDERS: Hospitalist; PCP Internal Medicine; Visit Provider Internal Medicine
DX: I48.0 Paroxysmal atrial fibrillation (principal); J44.9 Chronic obstructive pulmonary disease, unspecified; D64.9 Anemia, unspecified; R30.0 Dysuria
CPT/HCPCS: 36415; 80053; 80061; 84443; 85025; 85027; 87086

== ENCOUNTER 2023-03-10 09:24 | Outpatient (AMB) | payer MEDICARE, SELFPAY ==
[2022-12-20 14:49] VITALS: BP 118/60; BMI 25.0
[2023-01-12 10:19] VITALS: BP 90/52; BP 92/48
[2023-03-10 09:39] VITALS: BP 116/66; PULSE 79; O2SAT 93; BMI 23.0
--- NOTE | 2023-03-10 09:39 | MHC.PC.OV ---
Vital Signs 03/10/23 09:39 Height 5 ft 1 in Weight 122 lb BMI 23.0 BP 116/66 Blood Pressure Location Rt brachial Position Sitting Pulse 79 Pulse Source Pulse Oximeter Pulse Oximetry (%) 93 Oxygen Delivery Method Nasal Cannula Intake Visit Reasons: 1 Month follow up Intake Note: Pt is here today for 1 month follow up visit. Allergies gemifloxacin Allergy (Unknown, Verified 03/10/23 09:42) Rash montelukast [Singulair] Allergy (Unknown, Verified 03/10/23 09:42) mood swings prednisone Allergy (Unknown, Verified 03/10/23 09:42) sob Medication List - Last Reconciled 03/10/23 by Freida Yarbrough MD acetaminophen (Tylenol) 650 mg PO Q6H PRN albuterol sulfate 90 mcg/actuation 2 puffs inhalation QID PRN amlodipine 5 mg PO DAILY apixaban (Eliquis) 5 mg PO BID calcium carbonate (Calcium) 600 mg PO BID cholecalciferol (vitamin D3) (Vitamin D3) 50 mcg PO BEDTIME ferrous sulfate 324 mg PO BID fluticasone propion-salmeterol 500-50 mcg/dose (Wixela Inhub) 1 inh inhalation BID fluticasone propionate 50 mcg/actuation 2 sprays intranasal BID furosemide 20 mg PO BID ipratropium-albuterol 0.5 mg-3 mg(2.5 mg base)/3 mL 3 mL inhalation Q8H levothyroxine 25 mcg PO DAILY@0600 magnesium 400 mg PO BEDTIME nitrofurantoin monohyd/m-cryst 100 mg (Macrobid) 100 mg PO Q12H 7 days peg 400-propylene glycol (PF) 0.4-0.3 % (Systane (PF)) 1 drp ophthalmic (eye) BID pravastatin 20 mg PO BEDTIME Tobacco use date assessed: 11/17/22 HPI 1 Month follow up HPI Details Pt presents for heart failure with decreased ejection fraction, O2 dependent COPD, hypertension and chronic anemia secondary to undiagnosed GI bleed. Patient had EGD and colonoscopy negative for acute bleeding. She underwent capsule endoscopy and results are still pending. Patient is feeling better be more physically active. She reports symptoms of UTI and chronic urinary incontinence. [facility] Medical History (Updated 03/10/23 @ 10:38 by Freida Yarbrough MD) Cardiac pacemaker in situ CHF (congestive heart failure) Chronic anticoagulation COPD (chronic obstructive pulmonary disease) HTN (hypertension) Hyperlipemia Hyponatremia Meniere disease Osteoporosis PAF (paroxysmal atrial fibrillation) Pneumonia Renal failure Rhabdomyolysis Sleep apnea SSS (sick sinus syndrome) Surgical History History of cardiac cath History of endoscopy History of hysterectomy History of permanent cardiac pacemaker placement Family History Father Lung cancer Mother COPD (chronic obstructive pulmonary disease) Social History Household Members: Significant Other Housing: House Do you presently have visiting nurse or other home services: Yes Alcohol intake: former Year quit: 1989 Patient Tobacco Use Status: Former Tobacco user Quit Date: 1989 Years Smoked: 30 +/- e-Cigarette/Vaping Use: Never Used Second Hand Smoke Exposure: No service: No Current occupational status: retired Cognitive needs: No Hearing needs: Yes Vision needs: Yes Questionnaire Thrive Questionnaire Date Thrive assessed: 02/01/23 YUDELKA-7 AMB Questionnaire YUDELKA-7 Date YUDELKA - 7 assessed: 12/29/22 Source: Developed by Drs. Jerry Munoz, Karishma Melgar, Joaquin Ariza and colleagues, with an educational gaby from [employer]. Review of Systems Const All systems reviewed & are unremarkable except as noted in HPI and below Reports no additional complaints Eyes Reports no additional complaints ENT Reports no additional complaints Card Reports no additional complaints Resp Reports no additional complaints GI Reports no additional complaints Reports no additional complaints Physical exam (Primary Care) Vital Signs: Last Vital Signs Pulse 79 03/10/23 09:39 BP 116/66 03/10/23 09:39 Pulse Ox 93 03/10/23 09:39 Oxygen Delivery Method Nasal Cannula 03/10/23 09:39 BMI result Body Mass Index 23.0 Tobacco/Smoking Status: Tobacco use Status Tobacco use date assessed 11/17/22 03/10/23 09:41 Patient Tobacco Use Status Former Tobacco user 03/10/23 09:41 e-Cigarette/Vaping Use Never Used 03/10/23 09:41 Thrive Assessment: Date of Thrive Assessment Date Thrive assessed 02/01/23 03/10/23 09:41 Const General: no acute distress HENMT Head: Yes normal to inspection Neck Neck: Yes supple Resp Effort & Inspection: normal respiratory effort Auscultation: diminished lung sounds Cardio Rhythm: regular rhythm Heart sounds: S1 normal heart sound present and S2 normal heart sound present GI Inspection: Yes normal to inspection Palpation (GI): Soft to palpation Percussion: Yes normal to percussion Auscultation: normal bowel sounds Extrem Other: 1+ pitting edema bilaterally Assessment and Plan Assessment & Plan (1) COPD (chronic obstructive pulmonary disease): Comment: O2 dependent, Dr. Rhoades Code(s): J44.9 - Chronic obstructive pulmonary disease, unspecified Plan: Continue current treatment (2) Cardiomyopathy: Comment: ECHO 07/14: EF 25%, ECHO 10/13 EF 55% basal inferior segment hypokinesis, basal inferior septal akinesis Code(s): I42.9 - Cardiomyopathy, unspecified Plan: Continue current medications, patient was advised to decrease furosemide to 20 mg a day and monitor daily weights. For 2 lb increase in the weight she was advised to take an extra furosemide (3) Anemia: Code(s): D64.9 - Anemia, unspecified Plan: Hematocrit is at baseline of 36.7. Patient was advised to take iron supplement every other day with vitamin-C and repeat CBC in 1 month. She will follow-up with the GI for the results of capsule endoscopy (4) UTI (urinary tract infection): Comment: Frequent Code(s): N39.0 - Urinary tract infection, site not specified Qualifiers: Urinary tract infection type: site unspecified Hematuria presence: with hematuria Qualified Code(s): N39.0 - Urinary tract infection, site not specified; R31.9 - Hematuria, unspecified Plan: Macrobid for 7 days is prescribed patient will be started on estradiol vaginal tablets twice a week to prevent frequent UTIs Orders: Orders Comprehensive Met. Panel 1 Month D64.9 - Anemia, unspecified, I42.9 - Cardiomyopathy, unspecified, J44.9 - Chronic obstructive pulmonary disease, unspecified Freida Yarbrough MD Complete Blood Count Auto Diff 1 Month D64.9 - Anemia, unspecified, I42.9 - Cardiomyopathy, unspecified, J44.9 - Chronic obstructive pulmonary disease, unspecified Freida Yarbrough MD Medications: New nitrofurantoin monohyd/m-cryst 100 mg (Macrobid) must administer with a meal/food 100 mg PO Q12H 7 days 14 caps 0RF Freida Yarbrough MD estradiol 10 mcg vaginal 2XW 30 tabs 1RF Freida Yarbrough MD Changed From ferrous sulfate 324 mg PO BID 60 tabs 0RF To ferrous sulfate 324 mg PO Q OTHER DAY 30 tabs 1RF Freida Yarbrough MD Discontinued ipratropium-albuterol 0.5 mg-3 mg(2.5 mg base)/3 mL 3 mL inhalation Q6H 180 mL 3RF J44.9 - Chronic obstructive pulmonary disease, unspecified [place] Thi levothyroxine 25 mcg PO DAILY 90 tabs 1RF fluticasone propion-salmeterol 500-50 mcg/dose (Wixela Inhub) Discontinued Reason: Doctor's Order 1 inh inhalation Q12H 60 ea 5RF Coding Level of Care Code Est Pt Level 4 (37154) Diagnoses COPD (chronic obstructive pulmonary disease) J44.9 Cardiomyopathy I42.9 Anemia D64.9 UTI (urinary tract infection) N39.0; R31.9 Urinary tract infection type: site unspecified Hematuria presence: with hematuria
== END 2023-03-10 11:03 | disposition home or self-care (01) ==
PROVIDERS: PCP Internal Medicine; Visit Provider Internal Medicine
DX: J44.9 Chronic obstructive pulmonary disease, unspecified (principal); I42.9 Cardiomyopathy, unspecified; D64.9 Anemia, unspecified; N39.0 Urinary tract infection, site not specified; R31.9 Hematuria, unspecified
CPT/HCPCS: 99214

== ENCOUNTER 2023-03-15 11:41 | Inpatient (IN) | payer MEDICARE, SELFPAY ==
[2022-12-20 14:49] VITALS: BP 118/60; BMI 25.0
[2023-01-12 10:19] VITALS: BP 90/52; BP 92/48
[2023-03-15] VITALS (12 sets, daily range): BP systolic 94–132; BP diastolic 55–81; PULSE 48–94; RESP 18–34; TEMP 36.1–37.1; O2SAT 85–95; BMI 23.0
--- NOTE | ~2023-03-15 | FL_ITS ---
EXAMINATION: XR FLUOROSCOPY WITH IMAGES CLINICAL INFORMATION: Pacemaker insertion. COMPARISON: None available. TECHNIQUE: Fluoroscopy Supervised By: Dr. Robles. Fluoroscopy Time: 209.3. Cumulative Dose: 29.41 mGy. Images: 7. FINDINGS: There are several digital images obtained revealing dual pacer electrodes in right atrium and right ventricle. The hardware overlies the left anterior upper chest. FL/FL guidance in OR IMPRESSION: Fluoroscopy guidance was provided to referring physician during placement of pacemaker.
--- NOTE | ~2023-03-15 | XR_ITS ---
EXAMINATION: XR CHEST CLINICAL INFORMATION: Pacemaker placement. COMPARISON: Chest radiograph 03/15/2023. TECHNIQUE: AP view of the chest was obtained. FINDINGS: Stable cardiomegaly with redemonstration of enlarged pulmonary arteries suggesting pulmonary hypertension. Left-sided pacer with leads projecting over the right atrium and right ventricle. Decreased bibasilar airspace opacities compared to 03/15/2023. No pleural effusion or pneumothorax. Background of emphysematous changes. There is a 0.8 cm nodular-like opacity in the right upper lobe, correlating with a somewhat spiculated nodule on prior CT from 03/15/2023. Additional irregular opacities in the left upper lobe appears to correspond to scarring and architectural distortion on recent CT. No acute osseous abnormalities. XR/XR chest 1V IMPRESSION: 1. Left-sided pacer with leads projecting over the right atrium and right ventricle. No pneumothorax. 2. Decreased bibasilar airspace opacities compared to 03/15/2023. 3. Irregular nodule in the right upper lobe measuring approximately 0.8 cm. Consider further evaluation with PET/CT, tissue sampling, or follow-up CT chest in 3 months. The report will be called to the ordering clinician by a [facility] Phys[facility] Host Coordinator.
--- NOTE | ~2023-03-15 | XR_ITS ---
EXAMINATION: XR CHEST CLINICAL INFORMATION: Shortness of breath. COMPARISON: 01/31/2023 chest radiograph. TECHNIQUE: Frontal view of the chest was obtained. FINDINGS: Support devices: Left-sided pacemaker device appears in good position. Mild increased pulmonary vascular markings are seen with increased patchy infiltrates. The heart shows coarse mitral annular calcifications. Prominence of the main pulmonary artery. Moderate calcifications in the aortic arch. XR/XR chest 1V IMPRESSION: 1. Mild CHF with increased patchy infiltrates. 2. Prominence of the main pulmonary artery is nonspecific, but can be seen with pulmonary hypertension.
--- NOTE | ~2023-03-15 | XR_ITS ---
EXAMINATION: XR CHEST CLINICAL INFORMATION: Shortness of breath COMPARISON: 03/17/2023 TECHNIQUE: Frontal view of the chest was obtained. FINDINGS: The position of pacemaker and leads is stable. Patient is rotated to the left. The heart is prominent with calcification in the mitral annulus. There is prominence of the pulmonary artery. Lungs are hyperinflated with increased reticulation due to COPD. No evidence of consolidation or pneumothorax. No pleural effusions XR/XR chest 1V IMPRESSION: COPD, cardiomegaly. No interval change
--- NOTE | ~2023-03-15 | CT_ITS ---
EXAMINATION: CT CHEST WITHOUT CONTRAST CLINICAL INFORMATION: Abnormal chest x-ray. Shortness of breath. COMPARISON: CT angiogram of the chest performed 07/16/2022. Correlation made with x-ray performed on the same day. TECHNIQUE: Multidetector volumetric CT imaging of the chest was done. Axial MIP volume rendering provided. Sagittal and coronal reformatted images were obtained. This CT examination was performed using dose optimization techniques as appropriate, variously including the following: *Automated exposure control *Adjustment of mA and/or kV according to patient size (this includes techniques or standardized protocols for targeted exams where dose is matched to indication/reason for exam; i.e. extremities or head) *Use of iterative reconstruction technique DLP: 2:15 mGy-cm FINDINGS: STONE SPLITTER: Unremarkable. LUNGS: There is diffuse emphysema. There are bilateral lower lobe as well as right middle lobe infiltrates. MEDIASTINUM: The heart is mildly enlarged. There is no pericardial effusion. CORONARY ARTERY CALCIFICATION: Moderate. PLEURA: There is no pleural effusion. No pleural mass or thickening. AXILLA: No lymphadenopathy. UPPER ABDOMEN: Unremarkable. OSSEOUS STRUCTURES: Unremarkable. CT/CT chest wo IV con IMPRESSION: Bilateral lower lobe and right middle lobe infiltrates most consistent with pneumonia. Emphysema. Fleischner guidelines were followed.
--- NOTE | 2023-03-15 11:48 | ED_ITS ---
HPI - General Adult General Chief complaint: Upper Respiratory Symptoms Stated complaint: shortness of breath Time Seen by Provider: 03/15/23 12:11 Source: patient Mode of arrival: ambulatory Limitations: no limitations History of Present Illness HPI narrative: shortness of breath, starting yesterday, She is known to have COPD and CHF. Patient had recent drop of her HCT and a blood transfusion. Onset (ago): hour(s) Severity: moderate Pain Consistency: constant Related Data Home Medications Medication Instructions Recorded Confirmed calcium carbonate 600 mg calcium 600 mg PO BID 07/16/22 03/15/23 (1,500 mg) tablet (Calcium) cholecalciferol (vitamin D3) 50 50 mcg PO BEDTIME 07/16/22 03/15/23 mcg (2,000 unit) tablet (Vitamin D3) fluticasone propionate 50 2 spray intranasal BID 07/16/22 03/15/23 mcg/actuation nasal spray,suspension magnesium 200 mg tablet 400 mg PO BEDTIME 07/16/22 03/15/23 pravastatin 20 mg tablet 20 mg PO BEDTIME 07/16/22 03/15/23 levothyroxine 25 mcg tablet 25 mcg PO DAILY@0600 01/31/23 03/15/23 peg 400-propylene glycol (PF) 0.4 1 drp ophthalmic (eye) BID 01/31/23 03/15/23 %-0.3 % eye drops in a dropperette (Systane (PF)) amlodipine 5 mg tablet 5 mg PO DAILY 03/10/23 03/15/23 acetaminophen 325 mg tablet 650 mg PO Q6H PRN Pain 03/15/23 03/15/23 ascorbic acid (vitamin C) 500 mg 500 mg PO TUTHSA 03/15/23 03/15/23 tablet ferrous sulfate 324 mg (65 mg 324 mg PO TUTHSA 03/15/23 03/15/23 iron) tablet,delayed release fluticasone 500 mcg-salmeterol 50 1 inh inhalation Q12H 03/15/23 03/15/23 mcg/dose blistr powdr for inhalation (Wixela Inhub) ipratropium 0.5 mg-albuterol 3 mg 3 ml inhalation TID 03/15/23 03/15/23 (2.5 mg base)/3 mL nebulization soln Previous Rx's Medication Instructions Recorded albuterol sulfate 90 mcg/actuation 2 puff inhalation QID PRN 08/03/22 aerosol inhaler Shortness Of Breath Or Wheezing #8.5 grams apixaban 5 mg tablet (Eliquis) 5 mg PO BID #180 tabs 02/17/23 furosemide 20 mg tablet 20 mg PO BID #180 tabs 02/27/23 doxycycline monohydrate 100 mg 100 mg PO Q12H #12 caps 03/21/23 capsule prednisone 20 mg tablet 20 mg PO DAILY #3 tabs 03/21/23 Allergies Allergy/AdvReac Type Severity Reaction Status Date / Time gemifloxacin Allergy Unknown Rash Verified 03/15/23 11:46 montelukast [Singulair] Allergy Unknown mood swings Verified 03/15/23 11:46 prednisone Allergy Unknown sob Verified 03/15/23 11:46 [facility] Past Medical History Medical History Cardiac pacemaker in situ CHF (congestive heart failure) Chronic anticoagulation COPD (chronic obstructive pulmonary disease) HTN (hypertension) Hyperlipemia Hyponatremia Meniere disease Osteoporosis PAF (paroxysmal atrial fibrillation) Pneumonia Renal failure Rhabdomyolysis Sleep apnea SSS (sick sinus syndrome) Surgical History History of cardiac cath History of endoscopy History of hysterectomy History of permanent cardiac pacemaker placement Family History Family History Father Lung cancer Mother COPD (chronic obstructive pulmonary disease) Social History Social History Household Members: Spouse Housing: House Do you presently have visiting nurse or other home services: Yes (VNA and OT) Alcohol intake: never Patient Tobacco Use Status: Former Tobacco user Quit Date: 1989 Years Smoked: 30 +/- e-Cigarette/Vaping Use: Never Used Second Hand Smoke Exposure: No Advance Directives Date on File: 02/06/23 service: No Current occupational status: retired Cognitive needs: No Hearing needs: Yes Vision needs: Yes Physical Exam ED Vital Signs: Vital Signs - 24 hr 03/15/23 11:46 03/15/23 12:22 03/15/23 13:41 Temperature 98.2 F 98.6 F Pulse Rate 48 L 84 85 Respiratory Rate 26 H 34 H 32 H Blood Pressure 116/81 126/64 Pulse Oximetry 88 L 85 L Oxygen Delivery Method Nasal Cannula Oxymask Oxygen Flow Rate 15 BMI result Body Mass Index 23.0 Const Other: Cachectic female very short of breath Orientation/consciousness: oriented to person and patient oriented x3 Limitations: no limitations HENMT Head: Yes normal to inspection Ears: external ears normal General nose exam: Normal external nose present Mouth: Normal oral and palatal mucosa present and oropharynx normal Throat: Yes posterior oropharynx normal Eyes General: appearance normal, both eyes and all related structures Neck Neck: Yes normal visual inspection Chest Chest palpation & inspection: normal inspection of the chest Resp Other: increased work of breathing, rales mostly on the left Cardio Jugular venous distension: no JVD Rate: regular rate Rhythm: regular rhythm Heart sounds: S1 normal heart sound present and S2 normal heart sound present GI Inspection: Yes normal to inspection Palpation (GI): Soft to palpation, nontender and No hepatosplenomegaly present Auscultation: normal bowel sounds General: Yes no CVA tenderness Back/Spine/Pelvis Back: no CVA tenderness Skin General skin exam: no rashes or lesions noted Neuro General: oriented to person and patient oriented x3 Cranial nerves: Yes CN's II-XII intact bilaterally Motor exam (neuro): 5/5 motor strength present throughout Extrem Other: 2+ edema bilaterally Psych Appearance: grossly normal Course Course Course Narrative: RM- 77-year-old female with past medical history significant for COPD on chronic 2 L presents for evaluation of shortness of breath since yesterday. Patient reports her present nurse told her she had ?crackles in the right lung. Patient nurse's ray nose and cough. She has been using 4 L today due to her shortness of breath. Plan for labs, chest x-ray, blood cultures. Patient brought back to room Reevaluation(s) Reevaluation #1: Despite elevated wbc and rales intially on left this appears to be mostly CHF and not pneumonia starting to diurese and will admit. Elevated lactic acid most likely from work of breathing and not sepsis Time: 13:52 Reevaluation #2: I spent 40 minutes of critical care, with interventions, assessments, speaking to patient, consultants, and family. Time: 13:52 Medications Administered Discontinued Medications Generic Name Dose Route Start Last Admin Trade Name Freq PRN Reason Stop Dose Admin Acetaminophen 650 mg 03/15/23 15:13 03/21/23 05:11 Acetaminophen 325 Mg Tablet PO 650 mg Q6H PRN Administration Pain, Mild (Pain Scale 1-3) Albuterol/Ipratropium 3 ml 03/15/23 12:20 03/15/23 12:22 Albuterol/Iprat 2.5/0.5mg 3 Ml Ampul.Neb INHALE 03/15/23 12:21 3 ml ONCE ONE Administration Albuterol/Ipratropium 3 ml 03/15/23 16:00 03/21/23 14:46 Albuterol/Iprat 2.5/0.5mg 3 Ml Ampul.Neb INHALE 3 ml RQ4H WHILE AWAKE NGUYEN Administration Albuterol/Ipratropium 3 ml 03/15/23 17:09 03/21/23 07:36 Albuterol/Iprat 2.5/0.5mg 3 Ml Ampul.Neb INHALE 3 ml Q3H PRN Administration sob Amlodipine Besylate 2.5 mg 03/20/23 09:30 03/21/23 09:05 Amlodipine Besylate 2.5 Mg Tablet PO 2.5 mg DAILY NGUYEN Administration Protocol Apixaban 5 mg 03/15/23 21:00 03/15/23 20:36 Apixaban 5 Mg Tablet PO 5 mg BID NGUYEN Administration Apixaban 5 mg 03/19/23 09:30 03/21/23 09:05 Apixaban 5 Mg Tablet PO 5 mg BID NGUYEN Administration Ascorbic Acid 500 mg 03/16/23 09:00 03/21/23 09:06 Ascorbic Acid 500 Mg Tablet PO 500 mg TuTa@0900 NGUYEN Administration Calcium Carbonate 500 mg 03/15/23 21:00 03/21/23 09:05 Calcium Carbonate 500 Mg Tablet PO 500 mg BID NGUYEN Administration Doxycycline Monohydrate 100 mg 03/21/23 08:15 03/21/23 09:06 Doxycycline Monohydrate 100 Mg Capsule PO 100 mg Q12H NGUYEN Administration Ferrous Sulfate 324 mg 03/16/23 09:00 03/21/23 09:05 Ferrous Sulfate 324 Mg Tablet. PO 324 mg TuThSa@0900 NGUYEN Administration Fluticasone Propionate 2 spray 03/15/23 21:00 03/21/23 09:05 Fluticasone Propionate Nasal 16 Gm [place] NOSTRIL-B 2 spray BID NGUYEN Administration Fluticasone/Vilanterol 1 puff 03/16/23 08:00 03/21/23 07:36 Fluticasone/Vilanterol 200/25 Blst.W.Dev INHALE 1 puff RDAILY NGUYEN Administration Furosemide 20 mg 03/15/23 13:42 03/15/23 14:01 Furosemide 20 Mg/2 Ml Vial IVPUSH 03/15/23 13:43 20 mg ONCE ONE Administration Protocol Furosemide 40 mg 03/15/23 15:48 03/15/23 16:20 Furosemide 40 Mg/4 Ml Vial IVPUSH 03/15/23 15:49 40 mg ONCE ONE Administration Protocol Furosemide 20 mg 03/16/23 14:15 03/19/23 09:17 Furosemide 20 Mg Tablet PO 20 mg DAILY NGUYEN Administration Protocol Furosemide 20 mg 03/20/23 09:30 03/21/23 09:05 Furosemide 20 Mg Tablet PO 20 mg DAILY NGUYEN Administration Protocol Guaifenesin 600 mg 03/16/23 20:18 03/20/23 21:53 Guaifenesin La 600 Mg Tab.Er.12h PO 600 mg BID PRN Administration cough Ceftriaxone Sodium 1 gm/ 50 mls @ 100 mls/hr 03/15/23 13:03 03/15/23 16:03 Sodium Chloride IV 03/15/23 13:32 Infused ONCE ONE Infusion Ceftriaxone Sodium 1 gm/ 50 mls @ 100 mls/hr 03/16/23 13:30 03/20/23 15:45 Sodium Chloride IV Infused Q24H NGUYEN Infusion Azithromycin 500 mg/ Sodium 250 mls @ 125 mls/hr 03/15/23 20:00 03/20/23 23:53 Chloride IV Infused Q24H NGUYEN Infusion Cefazolin Sodium/Dextrose 2 gm in 50 mls @ 100 mls/hr 03/16/23 09:00 03/16/23 16:51 Ancef IV 03/16/23 09:29 Not Given PREOP ONE Levothyroxine Sodium 25 mcg 03/16/23 06:00 03/21/23 05:11 Levothyroxine Sodium 25 Mcg Tablet PO 25 mcg DAILY@0600 NGUYEN Administration Magnesium Oxide 400 mg 03/15/23 21:00 03/20/23 21:53 Magnesium Oxide 400 Mg Tablet PO 400 mg BEDTIME NGUYEN Administration Methylprednisolone Sodium Succinate 40 mg 03/15/23 18:00 03/20/23 05:51 Methylprednisolone Sod Succ 40 Mg/Ml Vial IVPUSH 40 mg Q12H NGUYEN Administration Methylprednisolone Sodium Succinate 40 mg 03/20/23 09:00 03/21/23 09:06 Methylprednisolone Sod Succ 40 Mg/Ml Vial IVPUSH 40 mg DAILY NGUYEN Administration Nitroglycerin 1 inch 03/15/23 13:43 03/15/23 14:01 Nitroglycerin 2 % Oint 1 Gm Packet TRANSDERMA 03/15/23 13:44 1 inch ONCE ONE Administration Omeprazole 20 mg 03/20/23 08:15 03/21/23 05:11 Omeprazole 20 Mg Capsule.Dr PO 20 mg DAILY@0630 NGUYEN Administration Pantoprazole Sodium 40 mg 03/15/23 17:15 03/18/23 18:42 Pantoprazole Sodium 40 Mg/10 Ml Vial IVPUSH 40 mg BID@0630,1630 NGUYEN Administration Polyethyl Glycol/Propylene Glycol 1 drop 03/15/23 21:00 03/21/23 09:05 Propylene Glycol/Peg 400 Gel Eye Drops 10ml EYE-BOTH 1 drop BID NGUYEN Administration Pravastatin Sodium 20 mg 03/15/23 21:00 03/20/23 21:52 Pravastatin Sodium 20 Mg Tablet PO 20 mg BEDTIME NGUYEN Administration Sodium Chloride 3 ml 03/15/23 16:00 03/21/23 09:06 0.9 % Sodium Chloride Flush 3 Ml Syringe IVFLUSH 3 ml QSHIFT NGUYEN Administration Sodium Chloride 1 spray 03/18/23 13:02 03/19/23 14:38 Sodium Chloride 0.65 % Nasal 44 Ml Sprbtl NOSTRIL-B 1 spray Q1H PRN Administration Congestion Vitamin D 50 mcg 03/15/23 21:00 03/20/23 21:53 Cholecalciferol (Vitamin D3) 25 Mcg Tablet PO 50 mcg BEDTIME NGUYEN Administration Medical Decision Making Differential Diagnosis Differential Diagnoses: The differential diagnosis associated with the presentation includes COPD excacerbation, pneumonia, CHF, were all considered Admission/Observation Consideration of admission/observation: Escalation of care including admission/observation considered (upon arrival this patient was considered for admission) Consult Healthcare Provider Management of the patient was discussed with: Hospitalist respiratory therapy Lab Data MDM Lab Attestation statement: I reviewed the patient's lab results. (elevated WBC, elevated BNP, elevated troponin) 03/15/23 12:19 03/15/23 12:46 Labs: Lab Results 03/15/23 03/15/23 03/15/23 Range/Units 12:19 12:19 12:19 WBC 13.3 H (4.8-10.8) X10*3/uL RBC 3.86 L (4.20-5.50) X10*6/uL Hgb 11.9 L (12.0-16.0) g/dl Hct 36.9 L (37.0-47.0) % MCV 95.6 (80.0-98.0) fL MCH 30.8 (27.0-33.0) pg MCHC 32.2 (31.0-35.0) g/dl RDW 16.6 H (11.0-16.0) % Plt Count 262 (160-400) X10*3/uL MPV 9.2 L (9.4-12.3) fL Immature Gran % (Auto) 0.5 H (0.0-0.4) % Neut % (Auto) 88.2 H (45-73) % Lymph % (Auto) 4.8 L (20-40) % [place] % (Auto) 6.2 (2-11) % Eos % (Auto) 0.1 (0-4) % Baso % (Auto) 0.2 (0-2) % Lymph # (Auto) 0.6 L (1.2-4.9) X10*3/uL [place] # (Auto) 0.8 (0.1-1.2) X10*3/uL Eos # (Auto) 0.0 (0.0-0.4) X10*3/uL Baso # (Auto) 0.0 (0.0-0.2) X10*3/uL Abs Immat Gran (auto) 0.06 H (0.00-0.03) X10*3/uL Absolute Neuts (auto) 11.7 H (2.0-8.3) x10*3/uL Absolute Nucleated RBC 0.000 (0.0-0.012) X10*3/uL Nucleated RBC % (auto) 0.0 (0.0-0.2) /100WBC PT 22.9 H (11.1-13.3) SEC INR 1.9 H (0.9-1.1) APTT 33.1 (26.0-36.4) SEC VBG pH (7.32-7.43) VBG pCO2 mmHg VBG pO2 mmHg VBG HCO3 (22-26) mmol/L VBG O2 Saturation % VBG Base Excess mmol/L Sodium (135-145) mmol/L Potassium (3.3-5.1) mmol/L Chloride (96-108) mmol/L Carbon Dioxide (22-29) mmol/L Anion Gap (12-20) BUN (9-16) mg/dL Creatinine (0.5-1.4) mg/dL Estim Creat Clear Calc Estimated GFR Random Glucose (60-115) mg/dL Lactic Acid 2.9 H* (0.5-2.0) mmol/L Lactic Acid F/U @ 2Hr (0.5-2.0) mmol/L Calcium (8.4-10.2) mg/dL Total Bilirubin (0.0-1.0) mg/dL AST (5-31) U/L ALT (0-31) U/L Alkaline Phosphatase (39-117) U/L Troponin I High Sens (<3.5-17.0) ng/L B-Natriuretic Peptide (<100) pg/mL Total Protein (6.5-8.0) g/dL Albumin (3.5-5.0) g/dL Lipase (8-78) U/L Procalcitonin ng/mL Influenza Type A (PCR) (Negative) Influenza Type B (PCR) (Negative) RSV RNA Qual (PCR) (Negative) SARS-CoV-2 RNA (RT-PCR) (Negative) 03/15/23 03/15/23 03/15/23 Range/Units 12:19 12:19 12:45 WBC (4.8-10.8) X10*3/uL RBC (4.20-5.50) X10*6/uL Hgb (12.0-16.0) g/dl Hct (37.0-47.0) % MCV (80.0-98.0) fL MCH (27.0-33.0) pg MCHC (31.0-35.0) g/dl RDW (11.0-16.0) % Plt Count (160-400) X10*3/uL MPV (9.4-12.3) fL Immature Gran % (Auto) (0.0-0.4) % Neut % (Auto) (45-73) % Lymph % (Auto) (20-40) % [place] % (Auto) (2-11) % Eos % (Auto) (0-4) % Baso % (Auto) (0-2) % Lymph # (Auto) (1.2-4.9) X10*3/uL [place] # (Auto) (0.1-1.2) X10*3/uL Eos # (Auto) (0.0-0.4) X10*3/uL Baso # (Auto) (0.0-0.2) X10*3/uL Abs Immat Gran (auto) (0.00-0.03) X10*3/uL Absolute Neuts (auto) (2.0-8.3) x10*3/uL Absolute Nucleated RBC (0.0-0.012) X10*3/uL Nucleated RBC % (auto) (0.0-0.2) /100WBC PT (11.1-13.3) SEC INR (0.9-1.1) APTT (26.0-36.4) SEC VBG pH (7.32-7.43) VBG pCO2 mmHg VBG pO2 mmHg VBG HCO3 (22-26) mmol/L VBG O2 Saturation % VBG Base Excess mmol/L Sodium (135-145) mmol/L Potassium (3.3-5.1) mmol/L Chloride (96-108) mmol/L Carbon Dioxide (22-29) mmol/L Anion Gap (12-20) BUN (9-16) mg/dL Creatinine (0.5-1.4) mg/dL Estim Creat Clear Calc Estimated GFR Random Glucose (60-115) mg/dL Lactic Acid (0.5-2.0) mmol/L Lactic Acid F/U @ 2Hr (0.5-2.0) mmol/L Calcium (8.4-10.2) mg/dL Total Bilirubin (0.0-1.0) mg/dL AST (5-31) U/L ALT (0-31) U/L Alkaline Phosphatase (39-117) U/L Troponin I High Sens 224.2 H* D (<3.5-17.0) ng/L B-Natriuretic Peptide 1462 H (<100) pg/mL Total Protein (6.5-8.0) g/dL Albumin (3.5-5.0) g/dL Lipase (8-78) U/L Procalcitonin ng/mL Influenza Type A (PCR) NEGATIVE (Negative) Influenza Type B (PCR) NEGATIVE (Negative) RSV RNA Qual (PCR) NEGATIVE (Negative) SARS-CoV-2 RNA (RT-PCR) NEGATIVE (Negative) 03/15/23 03/15/23 03/15/23 Range/Units 12:46 13:03 14:28 WBC (4.8-10.8) X10*3/uL RBC (4.20-5.50) X10*6/uL Hgb (12.0-16.0) g/dl Hct (37.0-47.0) % MCV (80.0-98.0) fL MCH (27.0-33.0) pg MCHC (31.0-35.0) g/dl RDW (11.0-16.0) % Plt Count (160-400) X10*3/uL MPV (9.4-12.3) fL Immature Gran % (Auto) (0.0-0.4) % Neut % (Auto) (45-73) % Lymph % (Auto) (20-40) % [place] % (Auto) (2-11) % Eos % (Auto) (0-4) % Baso % (Auto) (0-2) % Lymph # (Auto) (1.2-4.9) X10*3/uL [place] # (Auto) (0.1-1.2) X10*3/uL Eos # (Auto) (0.0-0.4) X10*3/uL Baso # (Auto) (0.0-0.2) X10*3/uL Abs Immat Gran (auto) (0.00-0.03) X10*3/uL Absolute Neuts (auto) (2.0-8.3) x10*3/uL Absolute Nucleated RBC (0.0-0.012) X10*3/uL Nucleated RBC % (auto) (0.0-0.2) /100WBC PT (11.1-13.3) SEC INR (0.9-1.1) APTT (26.0-36.4) SEC VBG pH 7.46 H (7.32-7.43) VBG pCO2 35 mmHg VBG pO2 36 mmHg VBG HCO3 25 (22-26) mmol/L VBG O2 Saturation 49.0 % VBG Base Excess 2.1 mmol/L Sodium 136 (135-145) mmol/L Potassium 3.6 (3.3-5.1) mmol/L Chloride 103 (96-108) mmol/L Carbon Dioxide 23 (22-29) mmol/L Anion Gap 14 (12-20) BUN 13 (9-16) mg/dL Creatinine 0.78 (0.5-1.4) mg/dL Estim Creat Clear Calc 42.7 Estimated GFR > 60 Random Glucose 105 (60-115) mg/dL Lactic Acid (0.5-2.0) mmol/L Lactic Acid F/U @ 2Hr (0.5-2.0) mmol/L Calcium 9.8 (8.4-10.2) mg/dL Total Bilirubin 1.2 H (0.0-1.0) mg/dL AST 19 (5-31) U/L ALT 10 (0-31) U/L Alkaline Phosphatase 53 (39-117) U/L Troponin I High Sens 230.7 H* (<3.5-17.0) ng/L B-Natriuretic Peptide (<100) pg/mL Total Protein 7.1 (6.5-8.0) g/dL Albumin 3.7 (3.5-5.0) g/dL Lipase 8 (8-78) U/L Procalcitonin ng/mL Influenza Type A (PCR) (Negative) Influenza Type B (PCR) (Negative) RSV RNA Qual (PCR) (Negative) SARS-CoV-2 RNA (RT-PCR) (Negative) 03/15/23 03/15/23 Range/Units 14:28 15:10 WBC (4.8-10.8) X10*3/uL RBC (4.20-5.50) X10*6/uL Hgb (12.0-16.0) g/dl Hct (37.0-47.0) % MCV (80.0-98.0) fL MCH (27.0-33.0) pg MCHC (31.0-35.0) g/dl RDW (11.0-16.0) % Plt Count (160-400) X10*3/uL MPV (9.4-12.3) fL Immature Gran % (Auto) (0.0-0.4) % Neut % (Auto) (45-73) % Lymph % (Auto) (20-40) % [place] % (Auto) (2-11) % Eos % (Auto) (0-4) % Baso % (Auto) (0-2) % Lymph # (Auto) (1.2-4.9) X10*3/uL [place] # (Auto) (0.1-1.2) X10*3/uL Eos # (Auto) (0.0-0.4) X10*3/uL Baso # (Auto) (0.0-0.2) X10*3/uL Abs Immat Gran (auto) (0.00-0.03) X10*3/uL Absolute Neuts (auto) (2.0-8.3) x10*3/uL Absolute Nucleated RBC (0.0-0.012) X10*3/uL Nucleated RBC % (auto) (0.0-0.2) /100WBC PT (11.1-13.3) SEC INR (0.9-1.1) APTT (26.0-36.4) SEC VBG pH (7.32-7.43) VBG pCO2 mmHg VBG pO2 mmHg VBG HCO3 (22-26) mmol/L VBG O2 Saturation % VBG Base Excess mmol/L Sodium (135-145) mmol/L Potassium (3.3-5.1) mmol/L Chloride (96-108) mmol/L Carbon Dioxide (22-29) mmol/L Anion Gap (12-20) BUN (9-16) mg/dL Creatinine (0.5-1.4) mg/dL Estim Creat Clear Calc Estimated GFR Random Glucose (60-115) mg/dL Lactic Acid (0.5-2.0) mmol/L Lactic Acid F/U @ 2Hr 1.2 (0.5-2.0) mmol/L Calcium (8.4-10.2) mg/dL Total Bilirubin (0.0-1.0) mg/dL AST (5-31) U/L ALT (0-31) U/L Alkaline Phosphatase (39-117) U/L Troponin I High Sens (<3.5-17.0) ng/L B-Natriuretic Peptide (<100) pg/mL Total Protein (6.5-8.0) g/dL Albumin (3.5-5.0) g/dL Lipase (8-78) U/L Procalcitonin 0.34 ng/mL Influenza Type A (PCR) (Negative) Influenza Type B (PCR) (Negative) RSV RNA Qual (PCR) (Negative) SARS-CoV-2 RNA (RT-PCR) (Negative) Independent Interpretation I performed an independent interpretation of an: EKG (atrial fib rate of 80, rbbb, no evidence of ischemia) and Plain X-Ray Interpretation: i read as a question of left infiltrate Radiology Impression Discussion of test interpretation with radiology: I have reviewed the radiologist's reading. (the radiologist reading is much more consistent with CHF) Independent Historian Clinical information obtained from an independent historian. History obtained from or confirmed by: Spouse External Record Review External record reviewed: Outpatient record Chronic Conditions Patient?s care impacted by: Other (cardiomyopathy, atrial fibrillation) Discharge Plan Discharge Clinical Impression: Cardiomyopathy, COPD (chronic obstructive pulmonary disease), Congestive heart failure (CHF) Patient Disposition: Admitted As Inpatient Interventions: Admission Worksheet (ED) Last Done: 03/15/23 17:04 Discharge Date/Time: 03/15/23 17:34
--- NOTE | 2023-03-15 11:49 | ECG_ITS ---
Test Reason : PAIN Blood Pressure : / mmHG Vent. Rate : 088 BPM Atrial Rate : 000 BPM P-R Int : 000 ms QRS Dur : 136 ms QT Int : 436 ms P-R-T Axes : 000 -70 -51 degrees QTc Int : 527 ms Wide QRS rhythm with frequent , and consecutive Premature ventricular complexes Left axis deviation Right bundle branch block T wave abnormality, consider inferior ischemia Abnormal ECG When compared with ECG of 01-FEB-2023 16:09, Wide QRS rhythm has replaced Junctional rhythm Referred By: Duglas Sol Electronically Signed By:
[2023-03-15] MEDS: Albuterol/Iprat 2.5/0.5MG 3 ML AMPUL.NEB INHALE ×3 (12:22→19:34)
[2023-03-15 12:27] LABS: MANUAL DIFF FLAG NO
--- NOTE | 2023-03-15 12:29 | ECG_ITS ---
Test Reason : PAIN Blood Pressure : / mmHG Vent. Rate : 083 BPM Atrial Rate : 000 BPM P-R Int : 000 ms QRS Dur : 148 ms QT Int : 442 ms P-R-T Axes : 000 021 -34 degrees QTc Int : 519 ms Atrial fibrillation Right bundle branch block Abnormal ECG When compared with ECG of 01-FEB-2023 16:09, Atrial fibrillation is now Present Referred By: Gurvinder Stephenson Electronically Signed By:DON BELLA
[2023-03-15 12:32] LABS: Basophils Percent Auto 0.2 % (0-2); Eosinophils Percent Auto 0.1 % (0-4); Hematocrit 36.9 % (37.0-47.0); Hemoglobin 11.9 g/dl (12.0-16.0); Imm Gran Abs Auto 0.06 X10*3/uL (0.00-0.03); Imm Gran Pct Auto 0.5 % (0.0-0.4); Lymphocytes Absolute Auto 0.6 X10*3/uL (1.2-4.9); Lymphocytes Percent Auto 4.8 % (20-40); Mean Corpuscular HGB Conc 32.2 g/dl (31.0-35.0); Mean Corpuscular Hemoglobin 30.8 pg (27.0-33.0); Mean Corpuscular Volume 95.6 fL (80.0-98.0); Mean Platelet Volume 9.2 fL (9.4-12.3); Monocytes Absolute Auto 0.8 X10*3/uL (0.1-1.2); Monocytes Percent Auto 6.2 % (2-11); Neutrophils Absolute Auto 11.7 x10*3/uL (2.0-8.3); Neutrophils Percent Auto 88.2 % (45-73); Platelet Count 262 X10*3/uL (160-400); Red Blood Count 3.86 X10*6/uL (4.20-5.50); Red Cell Distribution Width 16.6 % (11.0-16.0); White Blood Count 13.3 X10*3/uL (4.8-10.8)
[2023-03-15 12:41] LABS: INTERNATIONAL NORM RATIO 1.9 (0.9-1.1); Prothrombin Time 22.9 SEC (11.1-13.3)
[2023-03-15 12:43] LABS: Lactic Acid 2.9 mmol/L (0.5-2.0)
[2023-03-15 12:44] LABS: Partial Thromboplastin Time 33.1 SEC (26.0-36.4)
[2023-03-15 12:50] LABS: B Type Natriuretic Peptide 1462 pg/mL (<100)
[2023-03-15 12:58] LABS: Troponin-I High Sensitivity 224.2 ng/L (<3.5-17.0)
[2023-03-15 13:07] LABS: Venous Blood Gas Refer to POC result
[2023-03-15 13:07] LABS: VBG Base Excess 2.1 mmol/L; VBG HCO3 25 mmol/L (22-26); VBG pCO2 35 mmHg; VBG pH 7.46 (7.32-7.43); VBG pO2 36 mmHg
[2023-03-15 13:20] LABS: Alanine Aminotransferase 10 U/L (0-31); Albumin Level 3.7 g/dL (3.5-5.0); Alkaline Phosphatase 53 U/L (39-117); Anion Gap 14 (12-20); Aspartate Amino Transferase 19 U/L (5-31); Bilirubin Total 1.2 mg/dL (0.0-1.0); Blood Urea Nitrogen 13 mg/dL (9-16); Calcium 9.8 mg/dL (8.4-10.2); Carbon Dioxide 23 mmol/L (22-29); Chloride 103 mmol/L (96-108); Creatinine Clr Calc Pharmacy 42.7; Estimated Glomerular Filt Rate > 60; Glucose Random 105 mg/dL (60-115); Lipase 8 U/L (8-78); Potassium 3.6 mmol/L (3.3-5.1); Sodium 136 mmol/L (135-145); Total Protein 7.1 g/dL (6.5-8.0)
[2023-03-15] MEDS: cefTRIAXone sodium 1 GM in 0.9 % Sodium Chloride 50 ML IV (13:38)
[2023-03-15] MEDS: Nitroglycerin 2 % Oint 1 GM Packet 1 INCH TRANSDERMA (14:01)
[2023-03-15] MEDS: Furosemide 20 MG/2 ML VIAL IVPUSH (14:01)
--- NOTE | 2023-03-15 14:14 | PM.IMHP ---
History of Present Illness Date of Service: 03/15/23 Attending physician on admission: El Fajardo Chief Complaint: SOB Pt is a 77-year-old female with a PMH significant for?persistent AFib on Eliquis, pulmonary hypertension, HFpEF, cardiomyopathy, COPD with chronic hypoxic respiratory failure on 2L home O2, HTN, HLD, hx of Meniere's disease, JEIMY, and sick sinus syndrome with pacemaker in place who presents to the ED with?worsening SOB, cough, and fatigue for the past few days. Pt has been taking Mucinex and cough has been occasionally productive green and yellowish sputum. She reports being compliant with all of her medications, including her home furosemide. Is chronically on 2 L home O2, increased today to 4 L d/t SOB. She has also been noticing increased lower leg edema the past few days. Patient notes on Monday she was diagnosed with UTI and started on Macrobid 100 mg b.i.d. x7 days. Patient also notes that she was recently diagnosed with AFib few months ago and started on Eliquis. Also recently diagnosed with hypothyroidism and started on levothyroxine. Patient denies chest pain/pressure, palpitations. States she has no pain anywhere. In the ED patient was afebrile but tachypneic up to 34, satting as low as 83% on OxyMask at 15L. Labs were significant for leukocytosis of 13.3, H&H of 11.9/36.9, lactic acid 2.9 with repeat WNL 1.2, effect troponin of 224.2 with repeat flat at 230.7, BNP 1462, procalcitonin 0.34. Electrolytes WNL. CXR showed mild CHF with increased patchy infiltrates, and prominence of main pulmonary artery suggestive of pulmonary hypertension. CT?of chest showed bilateral lower lobe and right middle lobe infiltrates most consistent with pneumonia. EKG demonstrated atrial fibrillation. Pt was treated with DuoNeb, furosemide 20 mg IV, ceftriaxone, and nitroglycerin paste. Pt will be admitted to the hospital for acute on chronic hypoxic respiratory failure in the setting of pneumonia. Review of Systems Review of Systems: Shortness of breath Worsening occasionally productive cough Fatigue Lower leg edema Denies fever, chills, nausea, vomiting, abdominal pain No chest pain/pressure, palpitations Yes all other systems are reviewed and are negative [facility] Medical History Cardiac pacemaker in situ CHF (congestive heart failure) Chronic anticoagulation COPD (chronic obstructive pulmonary disease) HTN (hypertension) Hyperlipemia Hyponatremia Meniere disease Osteoporosis PAF (paroxysmal atrial fibrillation) Pneumonia Renal failure Rhabdomyolysis Sleep apnea SSS (sick sinus syndrome) Family History Father Lung cancer Mother COPD (chronic obstructive pulmonary disease) Surgical History History of cardiac cath History of endoscopy History of hysterectomy History of permanent cardiac pacemaker placement Social History Household Members: Spouse Housing: House Do you presently have visiting nurse or other home services: Yes (VNA and OT) Alcohol intake: never Patient Tobacco Use Status: Former Tobacco user Quit Date: 1989 Smoked: 30 +/- Smoked in Last 30 Days: No e-Cigarette/Vaping Use: Never Used Second Hand Smoke Exposure: No Use of substances other than those prescribed or required for medical reasons: No Currently Displaying Signs/Symptoms of Drug Intoxication Withdrawal: No Have you been hit, kicked, punched, or otherwise hurt by someone within the past year? If so, by whom?: No Do you feel safe in your current relationship?: Yes Is there a partner from a previous relationship who is making you feel unsafe now?: No Are you made to feel afraid or neglected: No Advance Directives: Yes Advance Directives on File: Yes Advance Directives Date on File: 02/06/23 Recently lost weight without trying: Yes How much weight loss: 2-13 pounds Eating poorly because of decreased appetite: Yes Nutrition screen score: 4 Nutrition Risks: No Nutritional Risk Patient : No : No Poor oral hygiene: No service: No Current occupational status: retired Cognitive needs: No Hearing needs: Yes Vision needs: Yes Meds Allergies Allergy/AdvReac Type Severity Reaction Status Date / Time gemifloxacin Allergy Unknown Rash Verified 03/15/23 11:46 montelukast [Singulair] Allergy Unknown mood swings Verified 03/15/23 11:46 prednisone Allergy Unknown sob Verified 03/15/23 11:46 Home Medications Medication Instructions Recorded Confirmed Last Taken Type calcium carbonate 600 mg calcium 600 mg PO BID 07/16/22 03/15/23 01/31/23 History (1,500 mg) tablet (Calcium) cholecalciferol (vitamin D3) 50 50 mcg PO BEDTIME 07/16/22 03/15/23 01/31/23 History mcg (2,000 unit) tablet (Vitamin D3) fluticasone propionate 50 2 spray intranasal BID 07/16/22 03/15/23 01/31/23 History mcg/actuation nasal spray,suspension magnesium 200 mg tablet 400 mg PO BEDTIME 07/16/22 03/15/23 01/31/23 History pravastatin 20 mg tablet 20 mg PO BEDTIME 07/16/22 03/15/23 01/31/23 History levothyroxine 25 mcg tablet 25 mcg PO DAILY@0600 01/31/23 03/15/23 01/31/23 History peg 400-propylene glycol (PF) 0.4 1 drp ophthalmic (eye) BID 01/31/23 03/15/23 01/31/23 History %-0.3 % eye drops in a dropperette (Systane (PF)) amlodipine 5 mg tablet 5 mg PO DAILY 03/10/23 03/15/23 Unknown History acetaminophen 325 mg tablet 650 mg PO Q6H PRN Pain 03/15/23 03/15/23 Unknown History ascorbic acid (vitamin C) 500 mg 500 mg PO TUTHSA 03/15/23 03/15/23 Unknown History tablet ferrous sulfate 324 mg (65 mg 324 mg PO TUTHSA 03/15/23 03/15/23 Unknown History iron) tablet,delayed release fluticasone 500 mcg-salmeterol 50 1 inh inhalation Q12H 03/15/23 03/15/23 Unknown History mcg/dose blistr powdr for inhalation (Wixela Inhub) ipratropium 0.5 mg-albuterol 3 mg 3 ml inhalation TID 03/15/23 03/15/23 Unknown History (2.5 mg base)/3 mL nebulization soln Physical Exam Vital Signs and Narrative: Vital Signs: Last Vital Signs Temp 98.6 F 03/15/23 13:41 Pulse 80 03/15/23 13:56 Resp 25 H 03/15/23 13:56 BP 132/69 03/15/23 13:56 Pulse Ox 87 L 03/15/23 13:57 O2 Del Method Oxymask 03/15/23 13:57 O2 Flow Rate 15 03/15/23 13:56 Oxygen Flow Rate 15 03/15/23 13:57 BMI result Body Mass Index 23.0 Constitutional: Alert, in no acute distress. Mental Status: Oriented to person, place and time. Eyes: Pupils are equal, round, and reactive to light. Ear, Nose, and Throat: Oropharynx clear, mucous membranes moist. Ears and nose without deformities. Trachea midline. Respiratory: Mild coarse inspiratory breath sounds. Capable of speaking in full sentences, but with diaphoretic breathing. Cardiovascular: S1, S2 regular. No murmurs, rubs, or gallops. Gastrointestinal: Abdomen soft, non-tender, non-distended. Normal bowel sounds. Neurologic: Cranial nerves II-XII are grossly intact bilaterally. No focal neurological deficits. Moves all extremities spontaneously. Skin: No rashes or lesions noted. Musculoskeletal: No cyanosis or clubbing. Extremities: Trace lower leg edema bilaterally with 1+ pitting edema in ankles, right greater than left. Psychiatric: Normal mood and affect. Results Labs 03/15/23 12:19 03/15/23 12:46 Labs: Laboratory Results - last 24 hr 03/15/23 03/15/23 03/15/23 12:19 12:19 12:19 MCV 95.6 MCH 30.8 MCHC 32.2 RDW 16.6 H Plt Count 262 MPV 9.2 L Immature Gran % (Auto) 0.5 H Neut % (Auto) 88.2 H Lymph % (Auto) 4.8 L Hickman % (Auto) 6.2 Eos % (Auto) 0.1 Baso % (Auto) 0.2 Lymph # (Auto) 0.6 L Hickman # (Auto) 0.8 Eos # (Auto) 0.0 Baso # (Auto) 0.0 Abs Immat Gran (auto) 0.06 H Absolute Neuts (auto) 11.7 H Absolute Nucleated RBC 0.000 Nucleated RBC % (auto) 0.0 PT 22.9 H INR 1.9 H APTT 33.1 VBG pH VBG pCO2 VBG pO2 VBG HCO3 VBG O2 Saturation VBG Base Excess Anion Gap Estim Creat Clear Calc Estimated GFR Random Glucose Lactic Acid 2.9 H* Calcium Total Bilirubin AST ALT Alkaline Phosphatase B-Natriuretic Peptide Total Protein Albumin Lipase 03/15/23 03/15/23 03/15/23 12:19 12:46 13:03 MCV MCH MCHC RDW Plt Count MPV Immature Gran % (Auto) Neut % (Auto) Lymph % (Auto) Hickman % (Auto) Eos % (Auto) Baso % (Auto) Lymph # (Auto) Hickman # (Auto) Eos # (Auto) Baso # (Auto) Abs Immat Gran (auto) Absolute Neuts (auto) Absolute Nucleated RBC Nucleated RBC % (auto) PT INR APTT VBG pH 7.46 H VBG pCO2 35 VBG pO2 36 VBG HCO3 25 VBG O2 Saturation 49.0 VBG Base Excess 2.1 Anion Gap 14 Estim Creat Clear Calc 42.7 Estimated GFR > 60 Random Glucose 105 Lactic Acid Calcium 9.8 Total Bilirubin 1.2 H AST 19 ALT 10 Alkaline Phosphatase 53 B-Natriuretic Peptide 1462 H Total Protein 7.1 Albumin 3.7 Lipase 8 Imaging Radiologist's Impressions: Impressions Chest X-Ray 03/15/23 12:51 IMPRESSION: 1. Mild CHF with increased patchy infiltrates. 2. Prominence of the main pulmonary artery is nonspecific, but can be seen with pulmonary hypertension. Assessment and Plan (1) Congestive heart failure (CHF): Status: Acute (2) UTI (urinary tract infection): Qualifiers: Hematuria presence: with hematuria Urinary tract infection type: site unspecified Qualified Code(s): N39.0 - Urinary tract infection, site not specified; R31.9 - Hematuria, unspecified Status: Acute (3) Community acquired bacterial pneumonia: Status: Acute (4) Hypoxia: Status: Acute Plan Pt is a 77-year-old female with a PMH significant for?persistent AFib on Eliquis, pulmonary hypertension, HFpEF, cardiomyopathy, COPD with chronic hypoxic respiratory failure on 2L home O2, HTN, HLD, hx of Meniere's disease, JEIMY, and sick sinus syndrome with pacemaker in place who presents to the ED with?worsening SOB, cough, and fatigue for the past few days. Pt will be admitted to the hospital for acute on chronic hypoxic respiratory failure in the setting of pneumonia. Acute on chronic hypoxic respiratory failure Multifactorial: community acquired multifocal pneumonia, COPD, HFpEF Patient with increased SOB, productive cough, fatigue, and requiring additional home O2 Patient satting as low as 82% O2 OxyMask 15L in the ED CT of chest showing bilateral lower lobe and right middle lobe infiltrates most consistent with pneumonia Elevated procalcitonin at 0.34, leukocytosis of 13.3 Will treat with ceftriaxone and azithromycin, started 03/15/2023 Duonebs, Solu-Medrol 40 mg IV q.12 Furosemide 40 mg IV qd Currently on high-flow at 40L per minute, wean as tolerated Follow lytes, mg, I/O Daily weights, low-salt diet Monitor on telemetry Sepsis Patient meets basic sepsis criteria: Pneumonia, WBC, tachypnea, tachycardia Patient started on broad-spectrum antibiotics Lactic acid less than 4.0, patient normotensive: will hold off on IVF for now d/t elevated BNP, hx of CHF Lactic acidosis, resolved Initial lactic acid 2.9 with repeat WNL at 1.2 Likely secondary to hypoxia, not severe sepsis Elevated troponin Initial troponin 224.2 with repeat flat at 02:30 0.7 Patient with history of elevated troponins, admitted on 07/16/2022 with troponins >3600, started on heparin drip transferred to [facility] for cardiac catheterization, which showed minimal luminal irregularities and 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 x7 days, last day of antibiotics scheduled for 03/18/2023 Currently asymptomatic: Denies dysuria, polyuria Patient given ceftriaxone in the ED, will continue AFib Continue Eliquis HTN Will hold home antihypertensives d/t active diuresing Patient currently normotensive Hypothyroidism Continue levothyroxine HLD Continue statin Full Code Attending:?Dr. Fajardo DVT Prophylaxis: On eliquis Pt will require a hospitalization of at least two nights for treatment of?acute on chronic hypoxic respiratory failure in the setting of HFpEF exacerbation. Time Spent With Patient Time: Total time managing care of this patient today ____ minutes. Quality Stroke Does the patient have a stroke diagnosis?: No VTE Prior VTE?: No VTE Risk Level:: Medical - moderate - high VTE Device Contraindication: Treatment Not Indicated VTE Drug Contraindication: N/A - Med Ordered
[2023-03-15 14:26] LABS: Reflex Lactate? Lactic Acid Added
[2023-03-15 14:45] LABS: Influenza A PCR NEGATIVE (Negative); Influenza B PCR NEGATIVE (Negative); Resp Syncy Virus RNA Qual PCR NEGATIVE (Negative); SARS COV2 PCR INHOUSE NEGATIVE (Negative)
[2023-03-15 15:08] LABS: Troponin-I High Sensitivity 230.7 ng/L (<3.5-17.0)
--- NOTE | 2023-03-15 15:34 | PHA.MEDREC ---
Pharmacy Consult ? Medication Reconciliation Pharmacy has completed the medication reconciliation. Patient confirmed medications. Reports she has not started the estrdaiol tablets yet due to issues at the pharmacy. Patient reports no longer taking Singular due to mood swings. She reported that her lasix is being titrate down once the swelling is under control. Was previously of 60 mg/day now down to 40mg/day. Vianey Reyes, MichaelD
[2023-03-15 15:35] LABS: ~Lactic Acid-LAB USE ONLY 1.2 mmol/L (0.5-2.0)
[2023-03-15] MEDS: Furosemide 40 MG/4 ML VIAL IVPUSH (16:20)
[2023-03-15 16:24] LABS: Appearance Urine Cloudy; Color Urine Yellow; Glucose Urine UA Negative (Negative); Leukocyte Esterase Urine Large (3+) (Negative); Nitrite Urine Negative (Negative); UMIC TRIGGER UACC YES; Urine Blood Trace (Negative); Urine Ketones Trace mg/dL (Negative); Urine Protein Negative (Neg-Trace)
[2023-03-15 16:34] LABS: Bacteria Urine 2+ (None Seen); Hyaline Casts Urine 0-2 /LPF (0-2); RBC Urine 0-2 /HPF (0-2); UACC Culture Trigger YES; WBC Urine >50 /HPF (0-5)
[2023-03-15 17:04] LABS: Procalcitonin 0.34 ng/mL
--- NOTE | 2023-03-15 17:22 | P.CONCC_ITS ---
History of Present Illness Data of Consult Service Date: 03/15/23 Requesting physician: El Fajardo Primary Care Provider: Freida Yarbrough MD [facility] Reason for consult: acute respiratory failure 77-year-old female with longstanding background history of COPD and according to history given to me also an underlying cardiomyopathy presents with what she felt was not increasing shortness of breath and some peripheral edema diuresed in the emergency room and placed on a relatively high L flow of oxygen currently feeling better but I see she has a pacemaker which has with it a ventricular lead which looks like it is either up on the free wall of the right ventricle or on the on the septum and there is an atrial lead but I do not see it in the generator so it might be capped off I do not know what the rhythm is but there is a question in my mind that there is in atrial mechanism which intermittently is conducting and capturing the ventricle which is conducting with a right bundle branch block looking back at previous rhythm strips I see that there was a sinus mechanism with first-degree AV block 300 millisecond av delay and now I do not really believe this is atrial fibrillation even though that is the official interpretation and if there is the with the an atrial mechanism there is a possibility of giving her a working atrial lead and recreating AV synchrony which might give her more stability in general but I do believe that on my bedside echo 1. There is no cardiomyopathy she has got no segmental wall motion abnormality and a 60% ejection fraction no primary valve or pericardial disease but there is definitely right heart dilatation and dysfunction and what looks like very large pulmonary artery on the chest x-ray and from previous CT scans and x-rays it looks like severe COPD and possibly pulmonary fibrosis she is on nitrofurantoin the no for her urinary tract prophylaxis which of course could be contributing to some of her lung problems so I made sure that I put a stop to that in the hospital but with the IVC being narrow with good inspiratory collapse I would stop all diuresis treat the COPD with albuterol and Solu-Medrol and I do not see this being a bacterial infection as a precipitant but I am going to have the device and interrogated see if that atrial lead is indeed simply detached and capped and maybe we simply need to place another atrial lead in to restore AV synchrony and maybe that would make her functionally better and that is one ave. that we can explore A close look at the CT scan of the chest does look like she has got multilobar infiltrates so 1 concern of course is the nitrofurantoin and somebody who was not febrile with a low procalcitonin the other possibility of course is that it rather than inflammatory that it still could be a viral infection and will get a respiratory panel as far as that goes but again if we do have atrial activity I think it is in her best interest to resynchronization treatment ventricle by pl acing a new atrial lead and and a and dual-chamber generator upgrade Review of Systems Review of Systems: Yes all other systems are reviewed and are negative [facility] Past Medical History Medical History Cardiac pacemaker in situ CHF (congestive heart failure) Chronic anticoagulation COPD (chronic obstructive pulmonary disease) HTN (hypertension) Hyperlipemia Hyponatremia Meniere disease Osteoporosis PAF (paroxysmal atrial fibrillation) Pneumonia Renal failure Rhabdomyolysis Sleep apnea SSS (sick sinus syndrome) Family History Family History Father Lung cancer Mother COPD (chronic obstructive pulmonary disease) Surgical History Surgical History History of cardiac cath History of endoscopy History of hysterectomy History of permanent cardiac pacemaker placement Social History Social History Household Members: Spouse Housing: House Do you presently have visiting nurse or other home services: Yes (VNA and OT) Alcohol intake: never Patient Tobacco Use Status: Former Tobacco user Quit Date: 1989 Smoked: 30 +/- e-Cigarette/Vaping Use: Never Used Second Hand Smoke Exposure: No Advance Directives Date on File: 02/06/23 service: No Current occupational status: retired Cognitive needs: No Hearing needs: Yes Vision needs: Yes Meds Allergies Allergy/AdvReac Type Severity Reaction Status Date / Time gemifloxacin Allergy Unknown Rash Verified 03/15/23 11:46 montelukast [Singulair] Allergy Unknown mood swings Verified 03/15/23 11:46 prednisone Allergy Unknown sob Verified 03/15/23 11:46 Active Medications: Current Medications Acetaminophen (Acetaminophen 325 Mg Tablet) 650 mg PO Q6H PRN PRN Reason: Pain, Mild (Pain Scale 1-3) Albuterol Sulfate (Albuterol Sulfate 90 Mcg 8 Gm Inhaler) 2 puff INHALE QID PRN PRN Reason: Shortness Of Breath Or Wheezing Albuterol/Ipratropium (Albuterol/Iprat 2.5/0.5mg 3 Ml Ampul.Neb) 3 ml INHALE RQ4H WHILE AWAKE [facility] Last Admin: 03/15/23 16:49 Dose: 3 ml Albuterol/Ipratropium (Albuterol/Iprat 2.5/0.5mg 3 Ml Ampul.Neb) 3 ml INHALE Q3H PRN PRN Reason: sob Apixaban (Apixaban 5 Mg Tablet) 5 mg PO BID [facility] Ascorbic Acid (Ascorbic Acid 500 Mg Tablet) 500 mg PO TuThSa@0900 [facility] Calcium Carbonate (Calcium Carbonate 500 Mg Tablet) 500 mg PO BID [facility] Docusate Sodium (Docusate Sodium 100 Mg Capsule) 100 mg PO DAILY PRN PRN Reason: Constipation Ferrous Sulfate (Ferrous Sulfate 324 Mg Tablet.Dr) 324 mg PO TuThSa@0900 [facility] Fluticasone Propionate (Fluticasone Propionate Nasal 16 Gm Poplar) 2 spray NOSTRIL-B BID [facility] Fluticasone/Vilanterol (Fluticasone/Vilanterol 200/25 Blst.W.Dev) 1 puff INHALE RDAILY [facility] Furosemide (Furosemide 40 Mg/4 Ml Vial) 40 mg IVPUSH DAILY [facility]; Protocol Ceftriaxone Sodium 1 gm/ (Sodium Chloride) 50 mls @ 100 mls/hr IV Q24H [facility] Levothyroxine Sodium (Levothyroxine Sodium 25 Mcg Tablet) 25 mcg PO DAILY@0600 [facility] Magnesium Oxide (Magnesium Oxide 400 Mg Tablet) 400 mg PO BEDTIME [facility] Methylprednisolone Sodium Succinate (Methylprednisolone Sod Succ 40 Mg/Ml Vial) 40 mg IVPUSH Q12H [facility] Ondansetron HCl (Ondansetron Hcl 4 Mg/2 Ml Vial) 4 mg IVPUSH Q8H PRN PRN Reason: Nausea and Vomiting Pantoprazole Sodium (Pantoprazole Sodium 40 Mg/10 Ml Vial) 40 mg IVPUSH BID@0630,1630 [facility] Polyethyl Glycol/Propylene Glycol (Propylene Glycol/Peg 400 Gel Eye Drops 10ml) 1 drop EYE-BOTH BID [facility] Pravastatin Sodium (Pravastatin Sodium 20 Mg Tablet) 20 mg PO BEDTIME [facility] Sodium Chloride (0.9 % Sodium Chloride Flush 3 Ml Syringe) 3 ml IVFLUSH QSHIFT [facility] Last Admin: 03/15/23 15:35 Dose: Not Given Vitamin D (Cholecalciferol (Vitamin D3) 25 Mcg Tablet) 50 mcg PO BEDTIME [facility] Home Medications Medication Instructions Recorded Confirmed Last Taken Type calcium carbonate 600 mg calcium 600 mg PO BID 07/16/22 03/15/23 01/31/23 History (1,500 mg) tablet (Calcium) cholecalciferol (vitamin D3) 50 50 mcg PO BEDTIME 07/16/22 03/15/23 01/31/23 History mcg (2,000 unit) tablet (Vitamin D3) fluticasone propionate 50 2 spray intranasal BID 07/16/22 03/15/23 01/31/23 History mcg/actuation nasal spray,suspension magnesium 200 mg tablet 400 mg PO BEDTIME 07/16/22 03/15/23 01/31/23 History pravastatin 20 mg tablet 20 mg PO BEDTIME 07/16/22 03/15/23 01/31/23 History levothyroxine 25 mcg tablet 25 mcg PO DAILY@0600 01/31/23 03/15/23 01/31/23 History peg 400-propylene glycol (PF) 0.4 1 drp ophthalmic (eye) BID 01/31/23 03/15/23 01/31/23 History %-0.3 % eye drops in a dropperette (Systane (PF)) amlodipine 5 mg tablet 5 mg PO DAILY 03/10/23 03/15/23 Unknown History acetaminophen 325 mg tablet 650 mg PO Q6H PRN Pain 03/15/23 03/15/23 Unknown History ascorbic acid (vitamin C) 500 mg 500 mg PO TUTHSA 03/15/23 03/15/23 Unknown History tablet ferrous sulfate 324 mg (65 mg 324 mg PO TUTHSA 03/15/23 03/15/23 Unknown History iron) tablet,delayed release fluticasone 500 mcg-salmeterol 50 1 inh inhalation Q12H 03/15/23 03/15/23 Unknown History mcg/dose blistr powdr for inhalation (Wixela Inhub) ipratropium 0.5 mg-albuterol 3 mg 3 ml inhalation TID 03/15/23 03/15/23 Unknown History (2.5 mg base)/3 mL nebulization soln Physical Exam Vital Signs: Vital Signs: Last Vital Signs Temp 98.4 F 03/15/23 13:56 Pulse 94 03/15/23 16:49 Resp 25 H 03/15/23 16:49 BP 132/69 03/15/23 13:56 Pulse Ox 87 L 03/15/23 13:57 O2 Del Method Oxymask 03/15/23 13:57 O2 Flow Rate 15 03/15/23 13:56 Oxygen Flow Rate 15 03/15/23 13:57 BMI result Body Mass Index 23.0 An awake and alert nonfocal neurologically Less tachypneic currently no use of accessory muscle just a little diaphragmatic effort for prolonged expiratory time Lungs with the scattered bilateral coarse rales no other adventitious sounds Good bilateral carotid upstrokes and bedside echo indicating normal LV systolic function if anything relatively hyperdynamic there is at least mild right ventricular dilatation and some degree of hypofunction but no primary valve or pericardial disease No acrocyanosis no significant peripheral edema at this point and if anything the IVC is small and has good inspiratory collapse so at the very least euvolemic Results Labs 03/15/23 12:19 03/15/23 12:46 Labs: Short CBC 03/15/23 Range/Units 12:19 WBC 13.3 H (4.8-10.8) X10*3/uL Hgb 11.9 L (12.0-16.0) g/dl Hct 36.9 L (37.0-47.0) % Plt Count 262 (160-400) X10*3/uL BMP 03/15/23 12:46 Sodium 136 Potassium 3.6 Chloride 103 Carbon Dioxide 23 BUN 13 Creatinine 0.78 Calcium 9.8 Liver Function 03/15/23 Range/Units 12:46 Total Bilirubin 1.2 H (0.0-1.0) mg/dL AST 19 (5-31) U/L ALT 10 (0-31) U/L Alkaline Phosphatase 53 (39-117) U/L Albumin 3.7 (3.5-5.0) g/dL Urine 03/15/23 Range/Units 16:17 Urine Color Yellow Urine Appearance Cloudy Urine pH 6.0 (5.0-9.0) Ur Specific Sanders 1.010 (1.005-1.025) Urine Protein Negative (Neg-Trace) mg/dL Urine Glucose (UA) Negative (Negative) mg/dL Assessment and Plan (1) Hypoxia: Status: Acute (2) Congestive heart failure (CHF): Status: Acute (3) COPD (chronic obstructive pulmonary disease): Status: Acute (4) Dysuria: Status: Acute (5) UTI (urinary tract infection): Qualifiers: Urinary tract infection type: site unspecified Hematuria presence: with hematuria Qualified Code(s): N39.0 - Urinary tract infection, site not specified; R31.9 - Hematuria, unspecified Status: Acute (6) Elevated troponin: Status: Acute (7) Influenza A: Status: Acute (8) Cardiomyopathy: Status: Acute (9) Anemia: Status: Acute (10) Hypomagnesemia: Status: Acute (11) Guaiac positive stools: Status: Acute (12) Cardiac pacemaker in situ: Status: Acute (13) Osteoporosis: Status: Acute (14) Hyponatremia: Status: Acute (15) Hyperlipemia: Status: Acute (16) HTN (hypertension): Status: Acute (17) Pneumonitis: Status: Acute Plan The plan is to 1st discontinue the nitrofurantoin a do a complete respiratory panel to see if we could prove if there is evidence of viral pneumonitis but the main source of dysfunction here I believe is the loss of AV synchrony and if I can not prove that is atrial activity I will upgrade the the pacer by adding atrial wire and resynchronization Time Spent With Patient Time: Total time managing care of this patient today 60____ minutes.
--- NOTE | 2023-03-15 17:24 | MHC.EDTECH ---
this pct emptied patients reyes which had 1000ml RN AWARE
[2023-03-15] MEDS: Pantoprazole Sodium 40 MG/10 ML VIAL IVPUSH (18:14)
[2023-03-15] MEDS: methylPREDNISolone Sod Succ 40 MG/ML VIAL IVPUSH (18:14)
[2023-03-15] MEDS: Azithromycin 500 MG in 0.9 % Sodium Chloride 250 ML 125 MG IV (20:34)
[2023-03-15] MEDS: Apixaban 5 MG TABLET PO (20:36)
[2023-03-15] MEDS: Cholecalciferol (Vitamin D3) 25 MCG TABLET 50 MCG PO (20:36)
[2023-03-15] MEDS: Pravastatin Sodium 20 MG TABLET PO (20:37)
[2023-03-15] MEDS: Magnesium Oxide 400 MG TABLET PO (20:37)
[2023-03-15] MEDS: Fluticasone Propionate Nasal 16 GM SPRAY 2 SPRAY NOSTRIL-B (22:03)
[2023-03-15] MEDS: Propylene Glycol/PEG 400 Gel Eye Drops 10ML 1 DROP EYE-BOTH (22:04)
[2023-03-15] MEDS: Acetaminophen 325 MG TABLET 650 MG PO (22:11)
[2023-03-16] VITALS (13 sets, daily range): BP systolic 100–119; BP diastolic 58–68; PULSE 86–96; RESP 18–48; TEMP 36.1–37.2; O2SAT 90–96; BMI 24.9
--- NOTE | 2023-03-16 | ECG_ITS ---
Test Reason : chf Blood Pressure : / mmHG Vent. Rate : 098 BPM Atrial Rate : 098 BPM P-R Int : 254 ms QRS Dur : 156 ms QT Int : 350 ms P-R-T Axes : 078 -02 -44 degrees QTc Int : 446 ms Sinus rhythm with 1st degree A-V block Right bundle branch block T wave abnormality, consider inferior ischemia Abnormal ECG When compared with ECG of 15-MAR-2023 12:34, Sinus rhythm has replaced Atrial fibrillation Referred By: Bar Robles Electronically Signed By:DON BELLA
[2023-03-16] MEDS: 0.9 % Sodium Chloride Flush 3 ML SYRINGE IVFLUSH ×3 (00:10→20:31)
[2023-03-16] MEDS: Pantoprazole Sodium 40 MG/10 ML VIAL IVPUSH ×2 (06:22→17:11)
[2023-03-16] MEDS: Levothyroxine Sodium 25 MCG TABLET PO (06:22)
[2023-03-16] MEDS: methylPREDNISolone Sod Succ 40 MG/ML VIAL IVPUSH ×2 (06:22→17:11)
[2023-03-16 07:32] LABS: Hematocrit 33.6 % (37.0-47.0); Hemoglobin 10.6 g/dl (12.0-16.0); Mean Corpuscular HGB Conc 31.5 g/dl (31.0-35.0); Mean Corpuscular Hemoglobin 30.5 pg (27.0-33.0); Mean Corpuscular Volume 96.8 fL (80.0-98.0); Mean Platelet Volume 9.8 fL (9.4-12.3); Platelet Count 235 X10*3/uL (160-400); Red Blood Count 3.47 X10*6/uL (4.20-5.50); Red Cell Distribution Width 16.1 % (11.0-16.0)
[2023-03-16] MEDS: Albuterol/Iprat 2.5/0.5MG 3 ML AMPUL.NEB INHALE ×4 (07:38→19:19)
[2023-03-16] MEDS: Fluticasone/Vilanterol 200/25 BLST.W.DEV 1 PUFF INHALE (07:38)
[2023-03-16 07:43] LABS: Anion Gap 12 (12-20); Blood Urea Nitrogen 15 mg/dL (9-16); Calcium 8.7 mg/dL (8.4-10.2); Carbon Dioxide 26 mmol/L (22-29); Chloride 100 mmol/L (96-108); Estimated Glomerular Filt Rate > 60; Glucose Random 136 mg/dL (60-115); Magnesium 2.1 mg/dL (1.6-2.6); Potassium 3.3 mmol/L (3.3-5.1); Sodium 135 mmol/L (135-145)
--- NOTE | 2023-03-16 08:26 | MHC.CM.PN ---
CM met with Patient at bedside and addressed IMM with her, providing Patient with the original and placing a copy on the chart. Patient lives in a mobile home with her /HCP and she uses both a cane and a walker to assist with mobility. Patient is active with [facility](RN 3X/week for vitals and OT that was about to start) and home O2 from [facility]. Home/resume said services is the goal and CM has initiated and will follow for dc planning.PCP is Dr. Freida Yarbrough.
[2023-03-16 08:43] LABS: Erythrocyte Sedimentation Rate 70 MM/HR (0-20)
[2023-03-16] MEDS: Fluticasone Propionate Nasal 16 GM SPRAY 2 SPRAY NOSTRIL-B ×2 (09:27→20:31)
[2023-03-16] MEDS: Propylene Glycol/PEG 400 Gel Eye Drops 10ML 1 DROP EYE-BOTH ×2 (09:27→20:31)
--- NOTE | 2023-03-16 14:11 | P.PNIM_ITS ---
Subjective Subjective Date of Service: 03/16/23 Interval History: COPD exacerbation, pneumonia Review of Systems Shortness of breath is slightly improving than yesterday but still requiring high-flow oxygen Dry cough No fever Physical Exam Vital Signs: Vital Signs: Last Vital Signs Temp 98.9 F 03/16/23 11:37 Pulse 95 03/16/23 11:37 Resp 20 03/16/23 11:37 BP 106/58 L 03/16/23 11:37 Pulse Ox 94 03/16/23 11:37 O2 Del Method High Flow Nasal C annula 03/16/23 11:37 O2 Flow Rate 40 03/16/23 11:37 FiO2 40 03/16/23 11:37 Oxygen Flow Rate 15 03/15/23 13:57 BMI result Body Mass Index 24.9 Appearance: Alert.? Oriented X3.? sob.? on high flow 40 liter /40% Eyes: Pupils equal, round and reactive to light.? Sclera nonicteric.? ENT: Pharynx normal.? Moist mucous membranes. cvs: rrr, [id number] . res:air entry slightly improving,has few rhonchii scattered . abd: no rebound or guarding ,nt, bs present. ext pulses present , no cyanosis ,has 1+leg edema. neuro: axo3 , nonfocal. Objective Data Active Medications Acetaminophen (Acetaminophen 325 Mg Tablet) 650 mg PO Q6H PRN PRN Reason: Pain, Mild (Pain Scale 1-3) Last Admin: 03/15/23 22:11 Dose: 650 mg Documented By: MARGARITO Albuterol Sulfate (Albuterol Sulfate 90 Mcg 8 Gm Inhaler) 2 puff INHALE QID PRN PRN Reason: Shortness Of Breath Or Wheezing Albuterol/Ipratropium (Albuterol/Iprat 2.5/0.5mg 3 Ml Ampul.Neb) 3 ml INHALE RQ4H WHILE AWAKE [facility] Last Admin: 03/16/23 11:18 Dose: 3 ml Documented By: YOLANDA Albuterol/Ipratropium (Albuterol/Iprat 2.5/0.5mg 3 Ml Ampul.Neb) 3 ml INHALE Q 3H PRN PRN Reason: sob Ascorbic Acid (Ascorbic Acid 500 Mg Tablet) 500 mg PO TuThSa@0900 [facility] Last Admin: 03/16/23 10:01 Dose: Not Given Documented By: TARA Non-Admin Reason: NPO Calcium Carbonate (Calcium Carbonate 500 Mg Tablet) 500 mg PO BID [facility] Last Admin: 03/16/23 10:01 Dose: Not Given Documented By: TARA Non-Admin Reason: NPO Docusate Sodium (Docusate Sodium 100 Mg Capsule) 100 mg PO DAILY PRN PRN Reason: Constipation Ferrous Sulfate (Ferrous Sulfate 324 Mg Tablet.Dr) 324 mg PO TuThSa@0900 [facility] Last Admin: 03/16/23 10:02 Dose: Not Given Documented By: TARA Non-Admin Reason: NPO Fluticasone Propionate (Fluticasone Propionate Nasal 16 Gm [place]) 2 spray NOSTRIL-B BID [facility] Last Admin: 03/16/23 09:27 Dose: 2 spray Documented By: TARA Fluticasone/Vilanterol (Fluticasone/Vilanterol 200/25 Blst.W.Dev) 1 puff INHALE RDAILY [facility] Last Admin: 03/16/23 07:38 Dose: 1 puff Documented By: YOLANDA Furosemide (Furosemide 20 Mg Tablet) 20 mg PO DAILY [facility]; Protocol Ceftriaxone Sodium 1 gm/ (Sodium Chloride) 50 mls @ 100 mls/hr IV Q24H [facility] Azithromycin 500 mg/ Sodium (Chloride) 250 mls @ 125 mls/hr IV Q24H [facility] Last Infusion: 03/15/23 22:35 Dose: 0 mls/hr Documented By: MARGARITO Levothyroxine Sodium (Levothyroxine Sodium 25 Mcg Tablet) 25 mcg PO DAILY@0600 [facility] Last Admin: 03/16/23 06:22 Dose: 25 mcg Documented By: MALIKA Magnesium Oxide (Magnesium Oxide 400 Mg Tablet) 400 mg PO BEDTIME [facility] Last Admin: 03/15/23 20:37 Dose: 400 mg Documented By: MARGARITO Methylprednisolone Sodium Succinate (Methylprednisolone Sod Succ 40 Mg/Ml Vial) 40 mg IVPUSH Q12H [facility] Last Admin: 03/16/23 06:22 Dose: 40 mg Documented By: MALIKA Ondansetron HCl (Ondansetron Hcl 4 Mg/2 Ml Vial) 4 mg IVPUSH Q8H PRN PRN Reason: Nausea and Vomiting Pantoprazole Sodium (Pantoprazole Sodium 40 Mg/10 Ml Vial) 40 mg IVPUSH BID@0630,1630 [facility] Last Admin: 03/16/23 06:22 Dose: 40 mg Documented By: MALIKA Polyethyl Glycol/Propylene Glycol (Propylene Glycol/Peg 400 Gel Eye Drops 10ml) 1 drop EYE-BOTH BID [facility] Last Admin: 03/16/23 09:27 Dose: 1 drop Documented By: TARA Pravastatin Sodium (Pravastatin Sodium 20 Mg Tablet) 20 mg PO BEDTIME [facility] Last Admin: 03/15/23 20:37 Dose: 20 mg Documented By: MARGARITO Sodium Chloride (0.9 % Sodium Chloride Flush 3 Ml Syringe) 3 ml IVFLUSH QSHIFT [facility] Last Admin: 03/16/23 10:02 Dose: Not Given Documented By: TARA Non-Admin Reason: No Access Vitamin D (Cholecalciferol (Vitamin D3) 25 Mcg Tablet) 50 mcg PO BEDTIME [facility] Last Admin: 03/15/23 20:36 Dose: 50 mcg Documented By: MARGARITO Labs 03/16/23 06:45 03/16/23 06:45 Labs: Laboratory Results - last 24 hr 03/15/23 03/15/23 03/15/23 12:45 14:28 15:10 MCV MCH MCHC RDW Plt Count MPV Absolute Nucleated RBC Nucleated RBC % (auto) ESR Anion Gap Estim Creat Clear Calc Estimated GFR Random Glucose Lactic Acid F/U @ 2Hr 1.2 Calcium Magnesium Procalcitonin 0.34 Urine Color Urine Appearance Urine pH Ur Specific [place] Urine Protein Urine Glucose (UA) Urine Ketones Urine Blood Urine Nitrite Ur Leukocyte Esterase Urine RBC Urine WBC Ur Squamous Epith Cells Urine Bacteria Hyaline Casts Influenza Type A (PCR) NEGATIVE Influenza Type B (PCR) NEGATIVE RSV RNA Qual (PCR) NEGATIVE SARS-CoV-2 RNA (RT-PCR) NEGATIVE 03/15/23 03/16/23 03/16/23 16:17 06:45 06:45 MCV 96.8 MCH 30.5 MCHC 31.5 RDW 16.1 H Plt Count 235 MPV 9.8 Absolute Nucleated RBC 0.000 Nucleated RBC % (auto) 0.0 ESR Anion Gap 12 Estim Creat Clear Calc 45.0 Estimated GFR > 60 Random Glucose 136 H Lactic Acid F/U @ 2Hr Calcium 8.7 D Magnesium 2.1 Procalcitonin Urine Color Yellow Urine Appearance Cloudy Urine pH 6.0 Ur Specific [place] 1.010 Urine Protein Negative Urine Glucose (UA) Negative Urine Ketones Trace Urine Blood Trace H Urine Nitrite Negative Ur Leukocyte Esterase Large (3+) H Urine RBC 0-2 Urine WBC >50 H Ur Squamous Epith Cells 11-20 Urine Bacteria 2+ Hyaline Casts 0-2 Influenza Type A (PCR) Influenza Type B (PCR) RSV RNA Qual (PCR) SARS-CoV-2 RNA (RT-PCR) 03/16/23 07:26 MCV MCH MCHC RDW Plt Count MPV Absolute Nucleated RBC Nucleated RBC % (auto) ESR 70 H Anion Gap Estim Creat Clear Calc Estimated GFR Random Glucose Lactic Acid F/U @ 2Hr Calcium Magnesium Procalcitonin Urine Color Urine Appearance Urine pH Ur Specific [place] Urine Protein Urine Glucose (UA) Urine Ketones Urine Blood Urine Nitrite Ur Leukocyte Esterase Urine RBC Urine WBC Ur Squamous Epith Cells Urine Bacteria Hyaline Casts Influenza Type A (PCR) Influenza Type B (PCR) RSV RNA Qual (PCR) SARS-CoV-2 RNA (RT-PCR) Microbiology Microbiology Results: Microbiology 03/15/23 Unknown Urine Culture - Preliminary Urine clean catch - Urine graves top Culture too young to evaluate. Assessment and Plan (1) Pneumonitis: Status: Acute (2) Hypoxia: Status: Acute (3) Community acquired bacterial pneumonia: Status: Acute (4) COPD (chronic obstructive pulmonary disease): Status: Acute Assessment and Plan: 77-year-old female with a PMH significant for?persistent AFib on Eliquis, pulmonary hypertension, HFpEF, cardiomyopathy, COPD with chronic hypoxic respiratory failure on 2L home O2, HTN, HLD, hx of Meniere's disease, JEIMY, and sick sinus syndrome with pacemaker in place who presents to the ED with?worsening SOB, cough, and fatigue for the past few days. Pt will be admitte d to the hospital for acute on chronic hypoxic respiratory failure in the setting of pneumonia. Acute on chronic hypoxic respiratory failure Multifactorial: community acquired multifocal pneumonia, COPD, HFpEF mild excerebation Patient SOB slightly improving, productive cough CT of chest showing bilateral lower lobe and right middle lobe infiltrates most consistent with pneumonia Elevated procalcitonin at 0.34, leukocytosis of 13.3,blood cultures pending elevated trop flat i/o : 550/1550 added echo ,Monitor on telemetry d/w cardiology-sob more likely due to copd/pneumonia -continue ceftriaxone and azithromycin, started 03/15/2023,Duonebs, Solu-Medrol 40 mg IV q.12,lasix switch to po,continue high-flow at 40L per minute, wean as tolerated,Follow lytes, mg, I/O,Daily weights, low-salt diet ICu eval noted -continue above ,hold nitrofurantion. Sepsis Patient meets basic sepsis criteria:? 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 Denies chest pain/pressure, palpitations Most likely demand ischemia insetting of copd/chf/sepsis EKG-? av synchrony -cardio will for ? of adding adding atrial wire and resynchronization will added echo. UTI Patient diagnosed with UTI 4 days prior, started on Macrobid 100 mg b.i.d. x7 days, last day of antibiotics scheduled for 03/18/2023 Currently asymptomatic:? Denies dysuria, polyuria continue anntibiotics as above. AFib Continue Eliquis HTN Will hold home antihypertensives d/t active diuresing Patient currently normotensive Hypothyroidism Continue levothyroxine HLD Continue statin DVT Prophylaxis: On eliquis ongoing hospitalization stay for treatment of?acute on chronic hypoxic respir atory failure multifactorial-on high flow, antibiotics ,iv steriods , nebs,monitering respiratory status Time Spent With Patient Time: Total time managing care of this patient today ____ minutes. Quality Stroke Does the patient have a stroke diagnosis?: No VTE Prior VTE?: No VTE Risk Level:: Medical - moderate - high VTE Device Contraindication: Treatment Not Indicated VTE Drug Contraindication: N/A - Med Ordered
[2023-03-16] MEDS: Furosemide 20 MG TABLET PO (14:37)
[2023-03-16] MEDS: cefTRIAXone sodium 1 GM in 0.9 % Sodium Chloride 50 ML IV (14:37)
[2023-03-16] MEDS: Acetaminophen 325 MG TABLET 650 MG PO (17:11)
[2023-03-16] MEDS: Cholecalciferol (Vitamin D3) 25 MCG TABLET 50 MCG PO (20:30)
[2023-03-16] MEDS: guaiFENesin LA 600 MG TAB.ER.12H PO (20:30)
[2023-03-16] MEDS: Magnesium Oxide 400 MG TABLET PO (20:31)
[2023-03-16] MEDS: Azithromycin 500 MG in 0.9 % Sodium Chloride 250 ML 125 MG IV (20:31)
[2023-03-16] MEDS: Pravastatin Sodium 20 MG TABLET PO (20:31)
[2023-03-17] VITALS (17 sets, daily range): BP systolic 97–132; BP diastolic 54–80; PULSE 87–96; RESP 16–24; TEMP 36.1–37.1; O2SAT 90–98; BMI 25.0
[2023-03-17] MEDS: Pantoprazole Sodium 40 MG/10 ML VIAL IVPUSH (06:03)
[2023-03-17] MEDS: methylPREDNISolone Sod Succ 40 MG/ML VIAL IVPUSH ×2 (06:03→18:28)
[2023-03-17] MEDS: Levothyroxine Sodium 25 MCG TABLET PO (06:03)
--- NOTE | 2023-03-17 07:00 | CA_ITS ---
Transthoracic Echocardiogram Patient (Last, First, Middle): Aylin Jauregui L Gender: Female Date of : 1945 Age: 77 Procedure Date: 03/17/2023 Procedure Type: Transthoracic Echocardiogram [place] [facility] [place]: 152. cm Weight: 58.06 kg BSA: 1.54 m2 Heart Rate: 91 bpm BP: 114 / 62 mmHg Geodetic Survey Director: BETSEY Referring MD: El Fajardo MD Symptoms: chf Study Quality: Fair Conclusions: - The left ventricular systolic function is normal. The visually estimated ejection fraction is between 60-65%. - The left atrium is moderately dilated. - There is severe mitral annular calcification. There is mild to moderate mitral valve regurgitation. - There is moderate tricuspid valve regurgitation. - Moderate pulmonary hypertension is present. Findings Left Ventricle Normal left ventricular cavity size. There is normal left ventricular wall thickness. The left ventricular systolic function is normal. The visually estimated ejection fraction is between 60-65%. Diastolic function is indeterminate on the basis of available data. Wall Motion Rest Echo Findings The basal inferior segment is hypokinetic. Right Ventricle Mildly increased right ventricular cavity size. There is low normal right ventricular systolic function. There is a pacemaker wire seen in the right ventricle. Atria The left atrium is moderately dilated. The right atrium is mildly dilated. Aortic Valve There is a normal trileaflet aortic valve. There is mild calcification of the aortic valve. There is no aortic valve stenosis. There is no aortic valve regurgitation. Mitral Valve There is severe mitral annular calcification. There is mild to moderate mitral valve regurgitation. There is no mitral valve stenosis. Pulmonic Valve The pulmonic valve is likely normal. Tricuspid Valve There is moderate tricuspid valve regurgitation. Moderate pulmonary hypertension is present. Great Vessels The asc aorta is normal in size. Venous The inferior vena cava is mildly dilated and collapses greater than 50% with inspiration. Pericardium/Pleural There is no evidence of pericardial effusion. Prior Study Comparison No significant change compared to prior study dated: 09/23/2022. Measurements 2D Linear Measurements IVSd: 1.00 0.6-0.9/0.6-1.0 cm LVIDd: 4.50 3.9-5.3/4.2-5.9 cm LVIDd Index: 2.92 2.4-3.2/2.2-3.1 cm/m2 LVIDs: 2.50 2.0-3.6 cm LVPWd: 1.00 0.7-1.1 cm LA Diam: 4.50 2.7-3.8/3.0-4.0 cm LAIDs Index: 2.92 1.5-2.3 cm/m2 LV Mass: 190.84 67-162/88-224 g LV Mass Index: 123.92 43-95/49-115 g/m2 LVOT Diam: 1.80 3.0+(-)1.3 cm 2D Systolic Function EF 4C: 62.90 >55% EF 2C: 71.40 >55% EF BiP: 68.90 >55% Mitral Valve MV Pk E: 1.54 MV Decel Time: 192.00 E'Lateral: 10.70 E'Medial: 8.70 E/E' Med: 17.70 E/E' Lat: 14.40 PHT: 56.00 MVA PHT: 3.93 Decel [place]: 8.04 MR Vol - PW Dopp: 11.90 MR VTI: 1.70 MR ERO: 7.00 MR Alias Shamar: 0.39 MR RAD: 0.40 Aortic Valve AoV Pk Shamar: 1.50 AoV Mn Shamar: 1.11 AoV VTI: 0.29 AoV Pk Grad: 9.00 Aov Mn Grad: 5.00 IVANNA Cont.VTI: 1.80 LVOT LVOT Pk Shamar: 1.10 LVOT Mn Shamar: 0.73 LVOT VTI: 0.21 LVOT Pk Grad: 5.00 LVOT Mn Grad: 2.00 LVOT Diam: 1.80 LVOT Area: 2.54 Diastolic Function MV Pk E: 1.54 E'Medial: 8.70 E/E' Med: 17.70 E' Laterial: 10.70 E/E' Lat: 14.40 Right Ventricle TAPSE (mm): 19.10 TVS' Shamar: 10.10 Tricuspid Valve TR Pk Shamar: 3.68 TR Pk Grad: 54.00 RA Press: 8.00 RVSP: 62.00 Great Vessels Aorta Sinus of Valsalva: 3.20 2.0-3.5 cm Ao Asc: 3.40 2.1-3.4 cm Pulmonary Valve PV Pk Shamar: 1.02 Peak PV Grad: 4.00 Updated in Other Vendor System with Status of Final Almas Gay MD electronically signed on 03/17/2023 2:38:23 PM with status of Final
[2023-03-17] MEDS: Fluticasone/Vilanterol 200/25 BLST.W.DEV 1 PUFF INHALE (07:39)
[2023-03-17] MEDS: Albuterol/Iprat 2.5/0.5MG 3 ML AMPUL.NEB INHALE ×3 (07:39→19:32)
[2023-03-17] MEDS: Fluticasone Propionate Nasal 16 GM SPRAY 2 SPRAY NOSTRIL-B ×2 (09:44→20:17)
[2023-03-17] MEDS: Propylene Glycol/PEG 400 Gel Eye Drops 10ML 1 DROP EYE-BOTH ×2 (09:44→20:17)
[2023-03-17] MEDS: 0.9 % Sodium Chloride Flush 3 ML SYRINGE IVFLUSH ×2 (09:44→20:17)
[2023-03-17] MEDS: Furosemide 20 MG TABLET PO (09:44)
--- NOTE | 2023-03-17 12:19 | P.CDIM_ITS ---
PROVIDER RESPONSE TEXT: To clarify, the appropriate diagnosis supported by the clinical indicators: Other (explain): no influeza positive this time QUERY TEXT: PHYSICIAN'S DOCUMENTATION REQUEST Date of Query: 03/17/2023 08:12 AM EDT Patient Name: Aylin Jauregui Admit Date: 03/15/2023 Dear El Fajardo, A review of the medical record indicates additional documentation may be needed. Please review below and update the documentation accordingly. The purpose of this query is not to question medical judgment, but to ensure the accuracy of the cond itions reported for your patient. Clinical Indicators: ICU progress note dated - Assessment and plan: Influenza A Please clarify the documentation of the diagnosis of Influenza A within the medical record: Influenza A being treated Influenza A not being treated Influenza A suspected, possible, probable etc. Other (explain)Clinically unable to determine (explain)Thank you, Jeanne Frias, CCS, CDIS Use of terms such as suspected, likely, concern for, or probable (associated with a specific diagnosi s that is being evaluated, monitored, or treated as if it exists) are acceptable and can be coded in the inpatient se tting, when documented at the time of discharge. Please use your independent medical judgment in providing your response. THIS QUERY IS PART OF THE PERMANENT MEDICAL RECORD
--- NOTE | 2023-03-17 12:41 | HO.ANESPROP2 ---
HPI - Anesthesia Eval Consult details Narrative: PM generator/lead change PMFSH Active Problems Active Problems: All Active Problems (Updated 03/16/23 @ 08:35 by Bar Robles MD) Pneumonitis (Acute) Hypoxia (Acute) Community acquired bacterial pneumonia (Acute) Congestive heart failure (CHF) (Acute) COPD (chronic obstructive pulmonary disease) (Acute) Dysuria (Acute) Skin tear (Acute) UTI (urinary tract infection) (Acute) Cellulitis (Acute) Annual physical exam (Acute) Sinusitis (Acute) Elevated troponin (Acute) Influenza A (Acute) Cardiomyopathy (Acute) Anemia (Acute) Anxiety (Acute) Hypomagnesemia (Acute) Urinary bladder incontinence (Acute) Guaiac positive stools (Acute) Cardiac pacemaker in situ (Acute) Hyponatremia (Acute) Osteoporosis (Acute) Hyperlipemia (Acute) HTN (hypertension) (Acute) Past Medical History Medical History Cardiac pacemaker in situ CHF (congestive heart failure) Chronic anticoagulation COPD (chronic obstructive pulmonary disease) HTN (hypertension) Hyperlipemia Hyponatremia Meniere disease Osteoporosis PAF (paroxysmal atrial fibrillation) Pneumonia Renal failure Rhabdomyolysis Sleep apnea SSS (sick sinus syndrome) Family History Family History Father Lung cancer Mother COPD (chronic obstructive pulmonary disease) Family history of problems with anesthesia: No Surgical History Surgical History History of cardiac cath History of endoscopy History of hysterectomy History of permanent cardiac pacemaker placement History of Problems with Anesthesia: No Social History Social History Household Members: Spouse Housing: House Do you presently have visiting nurse or other home services: Yes (VNA and OT) Alcohol intake: never Patient Tobacco Use Status: Former Tobacco user Quit Date: 1989 Years Smoked: 30 +/- Smoked in Last 30 Days: No e-Cigarette/Vaping Use: Never Used Second Hand Smoke Exposure: No Use of substances other than those prescribed or required for medical reasons: No Currently Displaying Signs/Symptoms of Drug Intoxication Withdrawal: No Have you been hit, kicked, punched, or otherwise hurt by someone within the past year? If so, by whom?: No Do you feel safe in your current relationship?: Yes Is there a partner from a previous relationship who is making you feel unsafe now?: No Are you made to feel afraid or neglected: No Are you DNR?: No Advance Directives: Yes Advance Directives on File: Yes Advance Directives Date on File: 02/06/23 Recently lost weight without trying: Yes How much weight loss: 2-13 pounds Eating poorly because of decreased appetite: Yes Nutrition screen score: 4 Nutrition Risks: No Nutritional Risk Patient : No : No Poor oral hygiene: No service: No Current occupational status: retired Cognitive needs: No Hearing needs: Yes Vision needs: Yes Meds Allergies Allergy/AdvReac Type Severity Reaction Status Date / Time gemifloxacin Allergy Unknown Rash Verified 03/15/23 11:46 montelukast [Singulair] Allergy Unknown mood swings Verified 03/15/23 11:46 prednisone Allergy Unknown sob Verified 03/15/23 11:46 Active Medications: Current Medications Acetaminophen (Acetaminophen 325 Mg Tablet) 650 mg PO Q6H PRN PRN Reason: Pain, Mild (Pain Scale 1-3) Last Admin: 03/16/23 17:11 Dose: 650 mg Albuterol Sulfate (Albuterol Sulfate 90 Mcg 8 Gm Inhaler) 2 puff INHALE QID PRN PRN Reason: Shortness Of Breath Or Wheezing Albuterol/Ipratropium (Albuterol/Iprat 2.5/0.5mg 3 Ml Ampul.Neb) 3 ml INHALE RQ4H WHILE AWAKE [facility] Last Admin: 03/17/23 11:15 Dose: 3 ml Albuterol/Ipratropium (Albuterol/Iprat 2.5/0.5mg 3 Ml Ampul.Neb) 3 ml INHALE Q3H PRN PRN Reason: sob Ascorbic Acid (Ascorbic Acid 500 Mg Tablet) 500 mg PO TuThSa@0900 [facility] Last Admin: 03/16/23 10:01 Dose: Not Given Calcium Carbonate (Calcium Carbonate 500 Mg Tablet) 500 mg PO BID [facility] Last Admin: 03/17/23 09:44 Dose: 500 mg Docusate Sodium (Docusate Sodium 100 Mg Capsule) 100 mg PO DAILY PRN PRN Reason: Constipation Ferrous Sulfate (Ferrous Sulfate 324 Mg Tablet.) 324 mg PO TuThSa@0900 [facility] Last Admin: 03/16/23 10:02 Dose: Not Given Fluticasone Propionate (Fluticasone Propionate Nasal 16 Gm [place]) 2 spray NOSTRIL-B BID [facility] Last Admin: 03/17/23 09:44 Dose: 2 spray Fluticasone/Vilanterol (Fluticasone/Vilanterol 200/25 Blst.W.Dev) 1 puff INHALE RDAILY [facility] Last Admin: 03/17/23 07:39 Dose: 1 puff Furosemide (Furosemide 20 Mg Tablet) 20 mg PO DAILY [facility]; Protocol Last Admin: 03/17/23 09:44 Dose: 20 mg Guaifenesin (Guaifenesin La 600 Mg Tab.Er.12h) 600 mg PO BID PRN PRN Reason: cough Last Admin: 03/16/23 20:30 Dose: 600 mg Ceftriaxone Sodium 1 gm/ (Sodium Chloride) 50 mls @ 100 mls/hr IV Q24H [facility] Last Infusion: 03/16/23 15:36 Dose: Infused Azithromycin 500 mg/ Sodium (Chloride) 250 mls @ 125 mls/hr IV Q24H [facility] Last Infusion: 03/16/23 22:32 Dose: Infused Levothyroxine Sodium (Levothyroxine Sodium 25 Mcg Tablet) 25 mcg PO DAILY@0600 [facility] Last Admin: 03/17/23 06:03 Dose: 25 mcg Magnesium Oxide (Magnesium Oxide 400 Mg Tablet) 400 mg PO BEDTIME [facility] Last Admin: 03/16/23 20:31 Dose: 400 mg Methylprednisolone Sodium Succinate (Methylprednisolone Sod Succ 40 Mg/Ml Vial) 40 mg IVPUSH Q12H [facility] Last Admin: 03/17/23 06:03 Dose: 40 mg Ondansetron HCl (Ondansetron Hcl 4 Mg/2 Ml Vial) 4 mg IVPUSH Q8H PRN PRN Reason: Nausea and Vomiting Pantoprazole Sodium (Pantoprazole Sodium 40 Mg/10 Ml Vial) 40 mg IVPUSH BID@0630,1630 [facility] Last Admin: 03/17/23 06:03 Dose: 40 mg Polyethyl Glycol/Propylene Glycol (Propylene Glycol/Peg 400 Gel Eye Drops 10ml) 1 drop EYE-BOTH BID [facility] Last Admin: 03/17/23 09:44 Dose: 1 drop Pravastatin Sodium (Pravastatin Sodium 20 Mg Tablet) 20 mg PO BEDTIME [facility] Last Admin: 03/16/23 20:31 Dose: 20 mg Sodium Chloride (0.9 % Sodium Chloride Flush 3 Ml Syringe) 3 ml IVFLUSH QSHIFT [facility] Last Admin: 03/17/23 09:44 Dose: 3 ml Vitamin D (Cholecalciferol (Vitamin D3) 25 Mcg Tablet) 50 mcg PO BEDTIME [facility] Last Admin: 03/16/23 20:30 Dose: 50 mcg Home Medications Medication Instructions Recorded Confirmed Last Taken Type calcium carbonate 600 mg calcium 600 mg PO BID 07/16/22 03/15/23 01/31/23 History (1,500 mg) tablet (Calcium) cholecalciferol (vitamin D3) 50 50 mcg PO BEDTIME 07/16/22 03/15/23 01/31/23 History mcg (2,000 unit) tablet (Vitamin D3) fluticasone propionate 50 2 spray intranasal BID 07/16/22 03/15/23 01/31/23 History mcg/actuation nasal spray,suspension magnesium 200 mg tablet 400 mg PO BEDTIME 07/16/22 03/15/23 01/31/23 History pravastatin 20 mg tablet 20 mg PO BEDTIME 07/16/22 03/15/23 01/31/23 History levothyroxine 25 mcg tablet 25 mcg PO DAILY@0600 01/31/23 03/15/23 01/31/23 History peg 400-propylene glycol (PF) 0.4 1 drp ophthalmic (eye) BID 01/31/23 03/15/23 01/31/23 History %-0.3 % eye drops in a dropperette (Systane (PF)) amlodipine 5 mg tablet 5 mg PO DAILY 03/10/23 03/15/23 Unknown History acetaminophen 325 mg tablet 650 mg PO Q6H PRN Pain 03/15/23 03/15/23 Unknown History ascorbic acid (vitamin C) 500 mg 500 mg PO TUTHSA 03/15/23 03/15/23 Unknown History tablet ferrous sulfate 324 mg (65 mg 324 mg PO TUTHSA 03/15/23 03/15/23 Unknown History iron) tablet,delayed release fluticasone 500 mcg-salmeterol 50 1 inh inhalation Q12H 03/15/23 03/15/23 Unknown History mcg/dose blistr powdr for inhalation (Wixela Inhub) ipratropium 0.5 mg-albuterol 3 mg 3 ml inhalation TID 03/15/23 03/15/23 Unknown History (2.5 mg base)/3 mL nebulization soln Exam Exam Date and Time: March 17, 2023 1241 Height,Weight and Vital Signs: Height 5 ft Weight 58.1 kg Last Vital Signs Temp 97 F 03/17/23 12:22 Pulse 96 03/17/23 12:22 Resp 20 03/17/23 12:22 BP 114/76 03/17/23 12:22 Pulse Ox 97 03/17/23 12:22 O2 Del Method Nasal Cannula, High Flow Nasal Cannula 03/17/23 12:22 O2 Flow Rate 30 03/17/23 12:22 FiO2 40 03/17/23 11:19 Oxygen Flow Rate 15 03/15/23 13:57 Pertinent Lab Results Pertinent Lab Results: Laboratory Tests 03/15/23 03/15/23 03/15/23 12:19 12:19 12:19 WBC 13.3 H RBC 3.86 L Hgb 11.9 L Hct 36.9 L MCV 95.6 MCH 30.8 MCHC 32.2 RDW 16.6 H Plt Count 262 MPV 9.2 L Immature Gran % (Auto) 0.5 H Neut % (Auto) 88.2 H Lymph % (Auto) 4.8 L [place] % (Auto) 6.2 Eos % (Auto) 0.1 Baso % (Auto) 0.2 Lymph # (Auto) 0.6 L [place] # (Auto) 0.8 Eos # (Auto) 0.0 Baso # (Auto) 0.0 Abs Immat Gran (auto) 0.06 H Absolute Neuts (auto) 11.7 H Absolute Nucleated RBC 0.000 Nucleated RBC % (auto) 0.0 ESR PT 22.9 H INR 1.9 H APTT 33.1 VBG pH VBG pCO2 VBG pO2 VBG HCO3 VBG O2 Saturation VBG Base Excess Sodium Potassium Chloride Carbon Dioxide Anion Gap BUN Creatinine Estim Creat Clear Calc Estimated GFR Random Glucose Lactic Acid 2.9 H* Lactic Acid F/U @ 2Hr Calcium Magnesium Total Bilirubin AST ALT Alkaline Phosphatase Troponin I High Sens B-Natriuretic Peptide Total Protein Albumin Lipase Procalcitonin Urine Color Urine Appearance Urine pH Ur Specific [place] Urine Protein Urine Glucose (UA) Urine Ketones Urine Blood Urine Nitrite Ur Leukocyte Esterase Urine RBC Urine WBC Ur Squamous Epith Cells Urine Bacteria Hyaline Casts Influenza Type A (PCR) Influenza Type B (PCR) RSV RNA Qual (PCR) SARS-CoV-2 RNA (RT-PCR) 03/15/23 03/15/23 03/15/23 12:19 12:19 12:45 WBC RBC Hgb Hct MCV MCH MCHC RDW Plt Count MPV Immature Gran % (Auto) Neut % (Auto) Lymph % (Auto) [place] % (Auto) Eos % (Auto) Baso % (Auto) Lymph # (Auto) [place] # (Auto) Eos # (Auto) Baso # (Auto) Abs Immat Gran (auto) Absolute Neuts (auto) Absolute Nucleated RBC Nucleated RBC % (auto) ESR PT INR APTT VBG pH VBG pCO2 VBG pO2 VBG HCO3 VBG O2 Saturation VBG Base Excess Sodium Potassium Chloride Carbon Dioxide Anion Gap BUN Creatinine Estim Creat Clear Calc Estimated GFR Random Glucose Lactic Acid Lactic Acid F/U @ 2Hr Calcium Magnesium Total Bilirubin AST ALT Alkaline Phosphatase Troponin I High Sens 224.2 H* D B-Natriuretic Peptide 1462 H Total Protein Albumin Lipase Procalcitonin Urine Color Urine Appearance Urine pH Ur Specific [place] Urine Protein Urine Glucose (UA) Urine Ketones Urine Blood Urine Nitrite Ur Leukocyte Esterase Urine RBC Urine WBC Ur Squamous Epith Cells Urine Bacteria Hyaline Casts Influenza Type A (PCR) NEGATIVE Influenza Type B (PCR) NEGATIVE RSV RNA Qual (PCR) NEGATIVE SARS-CoV-2 RNA (RT-PCR) NEGATIVE 03/15/23 03/15/23 03/15/23 12:46 13:03 14:28 WBC RBC Hgb Hct MCV MCH MCHC RDW Plt Count MPV Immature Gran % (Auto) Neut % (Auto) Lymph % (Auto) [place] % (Auto) Eos % (Auto) Baso % (Auto) Lymph # (Auto) [place] # (Auto) Eos # (Auto) Baso # (Auto) Abs Immat Gran (auto) Absolute Neuts (auto) Absolute Nucleated RBC Nucleated RBC % (auto) ESR PT INR APTT VBG pH 7.46 H VBG pCO2 35 VBG pO2 36 VBG HCO3 25 VBG O2 Saturation 49.0 VBG Base Excess 2.1 Sodium 136 Potassium 3.6 Chloride 103 Carbon Dioxide 23 Anion Gap 14 BUN 13 Creatinine 0.78 Estim Creat Clear Calc 42.7 Estimated GFR > 60 Random Glucose 105 Lactic Acid Lactic Acid F/U @ 2Hr Calcium 9.8 Magnesium Total Bilirubin 1.2 H AST 19 ALT 10 Alkaline Phosphatase 53 Troponin I High Sens 230.7 H* B-Natriuretic Peptide Total Protein 7.1 Albumin 3.7 Lipase 8 Procalcitonin Urine Color Urine Appearance Urine pH Ur Specific [place] Urine Protein Urine Glucose (UA) Urine Ketones Urine Blood Urine Nitrite Ur Leukocyte Esterase Urine RBC Urine WBC Ur Squamous Epith Cells Urine Bacteria Hyaline Casts Influenza Type A (PCR) Influenza Type B (PCR) RSV RNA Qual (PCR) SARS-CoV-2 RNA (RT-PCR) 03/15/23 03/15/23 03/15/23 14:28 15:10 16:17 WBC RBC Hgb Hct MCV MCH MCHC RDW Plt Count MPV Immature Gran % (Auto) Neut % (Auto) Lymph % (Auto) [place] % (Auto) Eos % (Auto) Baso % (Auto) Lymph # (Auto) [place] # (Auto) Eos # (Auto) Baso # (Auto) Abs Immat Gran (auto) Absolute Neuts (auto) Absolute Nucleated RBC Nucleated RBC % (auto) ESR PT INR APTT VBG pH VBG pCO2 VBG pO2 VBG HCO3 VBG O2 Saturation VBG Base Excess Sodium Potassium Chloride Carbon Dioxide Anion Gap BUN Creatinine Estim Creat Clear Calc Estimated GFR Random Glucose Lactic Acid Lactic Acid F/U @ 2Hr 1.2 Calcium Magnesium Total Bilirubin AST ALT Alkaline Phosphatase Troponin I High Sens B-Natriuretic Peptide Total Protein Albumin Lipase Procalcitonin 0.34 Urine Color Yellow Urine Appearance Cloudy Urine pH 6.0 Ur Specific [place] 1.010 Urine Protein Negative Urine Glucose (UA) Negative Urine Ketones Trace Urine Blood Trace H Urine Nitrite Negative Ur Leukocyte Esterase Large (3+) H Urine RBC 0-2 Urine WBC >50 H Ur Squamous Epith Cells 11-20 Urine Bacteria 2+ Hyaline Casts 0-2 Influenza Type A (PCR) Influenza Type B (PCR) RSV RNA Qual (PCR) SARS-CoV-2 RNA (RT-PCR) 03/16/23 03/16/23 03/16/23 06:45 06:45 07:26 WBC 6.0 RBC 3.47 L Hgb 10.6 L Hct 33.6 L MCV 96.8 MCH 30.5 MCHC 31.5 RDW 16.1 H Plt Count 235 MPV 9.8 Immature Gran % (Auto) Neut % (Auto) Lymph % (Auto) [place] % (Auto) Eos % (Auto) Baso % (Auto) Lymph # (Auto) [place] # (Auto) Eos # (Auto) Baso # (Auto) Abs Immat Gran (auto) Absolute Neuts (auto) Absolute Nucleated RBC 0.000 Nucleated RBC % (auto) 0.0 ESR 70 H PT INR APTT VBG pH VBG pCO2 VBG pO2 VBG HCO3 VBG O2 Saturation VBG Base Excess Sodium 135 Potassium 3.3 Chloride 100 Carbon Dioxide 26 Anion Gap 12 BUN 15 Creatinine 0.82 Estim Creat Clear Calc 45.0 Estimated GFR > 60 Random Glucose 136 H Lactic Acid Lactic Acid F/U @ 2Hr Calcium 8.7 D Magnesium 2.1 Total Bilirubin AST ALT Alkaline Phosphatase Troponin I High Sens B-Natriuretic Peptide Total Protein Albumin Lipase Procalcitonin Urine Color Urine Appearance Urine pH Ur Specific [place] Urine Protein Urine Glucose (UA) Urine Ketones Urine Blood Urine Nitrite Ur Leukocyte Esterase Urine RBC Urine WBC Ur Squamous Epith Cells Urine Bacteria Hyaline Casts Influenza Type A (PCR) Influenza Type B (PCR) RSV RNA Qual (PCR) SARS-CoV-2 RNA (RT-PCR) Airway Mallampati Class: II TM Dist: >3cm Heart: rrr Lungs: cta Assessment and Plan Assessment Anesthesia Assessment: Anesthesia Plan Discussed and Chart Reviewed Final Anesthetic Review Family History of Problems with Anesthesia: No History of Problems with Anesthesia: No NPO: Yes ASA Class: IV Final Preanesthetic Review: No Changes in Pt Med Stat, Meds/Allgs Chart Reviewed, Consent Obtained/Reviewed and Anes Risks/Benef Reviewed Patient Risk: High Procedure Risk: Intermediate Anesthetic Plan Anesthetic Plan: MAC: and Agree w/ Assess. and Plan Disposition: Standard PACU
--- NOTE | 2023-03-17 12:57 | HO.PM.IMPN ---
Subjective Subjective Date of Service: 03/17/23 Interval History: COPD exacerbation, pneumonia Review of Systems Shortness of breath is somewhat improving than yesterday but still requiring high-flow oxygen Dry cough No fever Physical Exam Vital Signs: Vital Signs: Last Vital Signs Temp 97 F 03/17/23 12:22 Pulse 96 03/17/23 12:22 Resp 20 03/17/23 12:22 BP 114/76 03/17/23 12:22 Pulse Ox 97 03/17/23 12:22 O2 Del Method Nasal Cannula, Hi gh Flow Nasal Arvind danny 03/17/23 12:22 O2 Flow Rate 30 03/17/23 12:22 FiO2 40 03/17/23 11:19 Oxygen Flow Rate 15 03/15/23 13:57 BMI result Body Mass Index 25.0 Appearance: Alert.? Oriented X3.? sob.? on high flow 30 liter /40% cvs: rrr, [id number] . res:air entry slightly improving,has few rhonchii scattered . abd: no rebound or guarding ,nt, bs present. ext pulses present , no cyanosis ,has 1+leg edema. neuro: axo3 , nonfocal. Objective Data Active Medications Acetaminophen (Acetaminophen 325 Mg Tablet) 650 mg PO Q6H PRN PRN Reason: Pain, Mild (Pain Scale 1-3) Last Admin: 03/16/23 17:11 Dose: 650 mg Documented By: TARA Albuterol Sulfate (Albuterol Sulfate 90 Mcg 8 Gm Inhaler) 2 puff INHALE QID PRN PRN Reason: Shortness Of Breath Or Wheezing Albuterol/Ipratropium (Albuterol/Iprat 2.5/0.5mg 3 Ml Ampul.Neb) 3 ml INHALE RQ4H WHILE AWAKE [facility] Last Admin: 03/17/23 11:15 Dose: 3 ml Documented By: DALIA Albuterol/Ipratropium (Albuterol/Iprat 2.5/0.5mg 3 Ml Ampul.Neb) 3 ml INHALE Q3H PRN PRN Reason: sob Ascorbic Acid (Ascorbic Acid 500 Mg Tablet) 500 mg PO TuThSa@0900 [facility] Last Admin: 03/16/23 10:01 Dose: Not Given Documented By: TARA Non-Admin Reason: NPO Calcium Carbonate (Calcium Carbonate 500 Mg Tablet) 500 mg PO BID [facility] Last Admin: 03/17/23 09:44 Dose: 500 mg Documented By: TARA Docusate Sodium (Docusate Sodium 100 Mg Capsule) 100 mg PO DAILY PRN PRN Reason: Constipation Ferrous Sulfate (Ferrous Sulfate 324 Mg Tablet.Dr) 324 mg PO TuThSa@0900 [facility] Last Admin: 03/16/23 10:02 Dose: Not Given Documented By: TARA Non-Admin Reason: NPO Fluticasone Propionate (Fluticasone Propionate Nasal 16 Gm [place]) 2 spray NOSTRIL-B BID [facility] Last Admin: 03/17/23 09:44 Dose: 2 spray Documented By: TARA Fluticasone/Vilanterol (Fluticasone/Vilanterol 200/25 Blst.W.Dev) 1 puff INHALE RDAILY [facility] Last Admin: 03/17/23 07:39 Dose: 1 puff Documented By: DALIA Furosemide (Furosemide 20 Mg Tablet) 20 mg PO DAILY [facility]; Protocol Last Admin: 03/17/23 09:44 Dose: 20 mg Documented By: TARA Guaifenesin (Guaifenesin La 600 Mg Tab.Er.12h) 600 mg PO BID PRN PRN Reason: cough Last Admin: 03/16/23 20:30 Dose: 600 mg Documented By: EVA Ceftriaxone Sodium 1 gm/ (Sodium Chloride) 50 mls @ 100 mls/hr IV Q24H [facility] Last Infusion: 03/16/23 15:36 Dose: 0 mls/hr Documented By: TARA Azithromycin 500 mg/ Sodium (Chloride) 250 mls @ 125 mls/hr IV Q24H [facility] Last Infusion: 03/16/23 22:32 Dose: 0 mls/hr Documented By: EVA Levothyroxine Sodium (Levothyroxine Sodium 25 Mcg Tablet) 25 mcg PO DAILY@0600 [facility] Last Admin: 03/17/23 06:03 Dose: 25 mcg Documented By: EVA Magnesium Oxide (Magnesium Oxide 400 Mg Tablet) 400 mg PO BEDTIME [facility] Last Admin: 03/16/23 20:31 Dose: 400 mg Documented By: EVA Methylprednisolone Sodium Succinate (Methylprednisolone Sod Succ 40 Mg/Ml Vial) 40 mg IVPUSH Q12H [facility] Last Admin: 03/17/23 06:03 Dose: 40 mg Documented By: EVA Ondansetron HCl (Ondansetron Hcl 4 Mg/2 Ml Vial) 4 mg IVPUSH Q8H PRN PRN Reason: Nausea and Vomiting Pantoprazole Sodium (Pantoprazole Sodium 40 Mg/10 Ml Vial) 40 mg IVPUSH BID@0630,1630 [facility] Last Admin: 03/17/23 06:03 Dose: 40 mg Documented By: EVA Polyethyl Glycol/Propylene Glycol (Propylene Glycol/Peg 400 Gel Eye Drops 10ml) 1 drop EYE-BOTH BID [facility] Last Admin: 03/17/23 09:44 Dose: 1 drop Documented By: TARA Pravastatin Sodium (Pravastatin Sodium 20 Mg Tablet) 20 mg PO BEDTIME [facility] Last Admin: 03/16/23 20:31 Dose: 20 mg Documented By: EVA Sodium Chloride (0.9 % Sodium Chloride Flush 3 Ml Syringe) 3 ml IVFLUSH QSHIFT [facility] Last Admin: 03/17/23 09:44 Dose: 3 ml Documented By: TARA Vitamin D (Cholecalciferol (Vitamin D3) 25 Mcg Tablet) 50 mcg PO BEDTIME [facility] Last Admin: 03/16/23 20:30 Dose: 50 mcg Documented By: EVA Labs 03/16/23 06:45 03/16/23 06:45 Microbiology Microbiology Results: Microbiology 03/15/23 Unknown Urine Culture - Final Urine clean catch - Urine graves top 03/15/23 12:42 Blood Culture - Preliminary Blood - Venous No growth after 24 hours. 03/15/23 12:19 Blood Culture - Preliminary Blood - Venous No growth after 24 hours. Assessment and Plan (1) Pneumonitis: Status: Acute (2) Hypoxia: Status: Acute (3) Community acquired bacterial pneumonia: Status: Acute (4) COPD (chronic obstructive pulmonary disease): Status: Acute Assessment and Plan: 77-year-old female with a PMH significant for?persistent AFib on Eliquis, pulmonary hypertension, HFpEF, cardiomyopathy, COPD with chronic hypoxic respiratory failure on 2L home O2, HTN, HLD, hx of Meniere's disease, JEIMY, and sick sinus syndrome with pacemaker in place who presents to the ED with?worsening SOB, cough, and fatigue for the past few days. Pt will be admitted to the hospital for acute on chronic hypoxic respiratory failure in the setting of pneumonia. Acute on chronic hypoxic respiratory failure Multifactorial: community acquired multifocal pneumonia, COPD, HFpEF mild excerebation Patient SOB slightly improving, productive cough CT of chest showing bilateral lower lobe and right middle lobe infiltrates most consistent with pneumonia Elevated procalcitonin at 0.34, leukocytosis of 13.3,blood cultures pending elevated trop flat added echo ,Monitor on telemetry i/o : 850/2280 d/w cardiology-sob more likely due to copd/pneumonia -continue ceftriaxone and azithromycin, started 03/15/2023,Duonebs, Solu-Medrol 40 mg IV q.12,lasix switch to po,continue high-flow at 30L per minute, wean as tolerated,Follow lytes, mg, I/O,Daily weights, low-salt diet ICu eval noted -continue above ,hold nitrofurantion. Sepsis Patient meets basic sepsis criteria:? 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 Denies chest pain/pressure, palpitations Most likely demand ischemia insetting of copd/chf/sepsis EKG-? av synchrony -cardio will for ? of adding adding atrial wire and resynchronization will added echo. UTI Patient diagnosed with UTI 4 days prior, started on Macrobid 100 mg b.i.d. x7 days, last day of antibiotics scheduled for 03/18/2023 Currently asymptomatic:? Denies dysuria, polyuria continue anntibiotics as above. AFib Continue Eliquis HTN Will hold home antihypertensives d/t active diuresing Patient currently normotensive Hypothyroidism Continue levothyroxine HLD Continue statin DVT Prophylaxis: On eliquis ongoing hospitalization stay for treatment of?acute on chronic hypoxic respiratory failure multifactorial-on high flow, antibiotics ,iv steriods , nebs,monitering respiratory status Time Spent With Patient Time: Total time managing care of this patient today ____ minutes. Quality Stroke Does the patient have a stroke diagnosis?: No VTE Prior VTE?: No VTE Risk Level:: Medical - moderate - high VTE Device Contraindication: Treatment Not Indicated VTE Drug Contraindication: N/A - Med Ordered
--- NOTE | 2023-03-17 14:52 | MHC.CM.PN ---
EMR reviewed and per MD rounds, pt is not medically cleared for D/C due to acute on chronic hypoxic respiratory failure requiring hi-flow O2, IV abx and steroids. CM will continue to follow.
--- NOTE | 2023-03-17 16:22 | P.OP_ITS ---
Operative Note Operative Note Date of Service: 03/17/23 Narrative: patient presented with acute respiratory failure 1 of a number of episodes has apparently a single-chamber pacemaker with a 10-year-old generator and this newest lead 5 years old up on the right ventricular septum with stable impedances of 400 Ohms stable capture and sensing thresholds procedure was to place an atrial lead active fixation from [place] and if there is a preserved sinus mechanism to proceed with adding a dual-chamber generator after sterile preparation and draping in the usual fashion we 1st did a subclavian venogram without complication using 15 cc of contrast highlighting the patency of the subclavian venous system so after that and made careful incision and very careful dissection down to the pocket containing the generator making sure every step of the way that no wires were visible and none were injured and I dissected the room ventricular wire free of all restraining scar tissue after X planting the generator and removing the V lead from the device and interrogation showed 12 mV R-waves 400 Ohms resistance excellent capture threshold of 0.5 volts so I left that attached to the analyzer as backup I then gained entry x1 very easily into the extrathoracic portion of the subclavian venous system passing retrograde with Seldinger technique a J tipped guidewire to the inferior vena cava over which a 6 Tristanian introducer was placed all under fluoroscopic guidance with that I then placed a J-shaped right atrial lead down into clinically what appeared to be by fluoroscopy the right atrial appendage deployed to screw showing that her was well tethered and excellent injury current superb R-waves greater than 5 mV with a resistance of 460 Ohms capture threshold consistently 0.5 volts and at 10 volts there was no phrenic irritation so that lead was then sewn and tethered to the pectoral muscle in the floor of the pocket I then attached both leads to the to the generator making sure they were both well tethered and the thresholds and and resistances were perfectly maintained lead medical technologist is were placed back in the pocket and the wound was closed in 3 layers without complication sterilely covered and the patient was awake and alert and removed from the table in excellent condition uncomplicated procedure and we are awaiting chest x-ray we then programmed her for a AV synchrony and with physiologic AV delays hopefully that she will have not just the synchronization and avoidance of other features of pacemaker syndrome but Kem have a longer diastolic filling.
[2023-03-17] MEDS: Azithromycin 500 MG in 0.9 % Sodium Chloride 250 ML 125 MG IV (20:16)
[2023-03-17] MEDS: Magnesium Oxide 400 MG TABLET PO (20:16)
[2023-03-17] MEDS: Pravastatin Sodium 20 MG TABLET PO (20:16)
[2023-03-17] MEDS: Cholecalciferol (Vitamin D3) 25 MCG TABLET 50 MCG PO (20:16)
[2023-03-17] MEDS: Acetaminophen 325 MG TABLET 650 MG PO (22:54)
[2023-03-17] MEDS: guaiFENesin LA 600 MG TAB.ER.12H PO (23:04)
[2023-03-18] VITALS (15 sets, daily range): BP systolic 115–142; BP diastolic 64–76; PULSE 78–94; RESP 18–24; TEMP 36.3–36.7; O2SAT 90–97; BMI 26.2
[2023-03-18] MEDS: methylPREDNISolone Sod Succ 40 MG/ML VIAL IVPUSH ×2 (05:52→18:42)
[2023-03-18] MEDS: Levothyroxine Sodium 25 MCG TABLET PO (05:52)
[2023-03-18] MEDS: Pantoprazole Sodium 40 MG/10 ML VIAL IVPUSH ×2 (05:53→18:42)
[2023-03-18] MEDS: Fluticasone/Vilanterol 200/25 BLST.W.DEV 1 PUFF INHALE (07:42)
[2023-03-18] MEDS: Albuterol/Iprat 2.5/0.5MG 3 ML AMPUL.NEB INHALE ×4 (07:43→19:31)
[2023-03-18] MEDS: Ascorbic Acid 500 MG TABLET PO (07:57)
[2023-03-18] MEDS: Fluticasone Propionate Nasal 16 GM SPRAY 2 SPRAY NOSTRIL-B ×2 (07:58→21:21)
[2023-03-18] MEDS: Acetaminophen 325 MG TABLET 650 MG PO ×3 (07:58→20:29)
[2023-03-18] MEDS: Propylene Glycol/PEG 400 Gel Eye Drops 10ML 1 DROP EYE-BOTH ×2 (07:58→21:21)
[2023-03-18] MEDS: Ferrous Sulfate 324 MG TABLET.DR PO (07:58)
[2023-03-18] MEDS: Furosemide 20 MG TABLET PO (07:58)
[2023-03-18] MEDS: 0.9 % Sodium Chloride Flush 3 ML SYRINGE IVFLUSH (07:59)
--- NOTE | 2023-03-18 12:14 | P.PNIM_ITS ---
Subjective Subjective Date of Service: 03/18/23 Interval History: COPD exacerbation, pneumonia Review of Systems sob seems somewhat improving has cough no fevers Physical Exam Vital Signs: Vital Signs: Last Vital Signs Temp 97.9 F 03/18/23 11:05 Pulse 88 03/18/23 11:46 Resp 18 03/18/23 11:46 BP 115/64 03/18/23 11:05 Pulse Ox 93 03/18/23 11:05 O2 Del Method High Flow Nasal C annula 03/18/23 11:05 O2 Flow Rate 30 03/18/23 11:05 FiO2 35 03/18/23 11:05 Oxygen Flow Rate 15 03/15/23 13:57 BMI result Body Mass Index 26.2 Appearance: Alert.? Oriented X3.? sob.? on high flow 30 liter /40% cvs: rrr, [id number] . res:air entry slightly improving,has few rhonchii scattered . abd: no rebound or guarding ,nt, bs present. ext pulses present , no cyanosis ,has 1+leg edema. neuro: axo3 , nonfocal. Objective Data Active Medications Acetaminophen (Acetaminophen 325 Mg Tablet) 650 mg PO Q6H PRN PRN Reason: Pain, Mild (Pain Scale 1-3) Last Admin: 03/18/23 07:58 Dose: 650 mg Documented By: DENISE Albuterol Sulfate (Albuterol Sulfate 90 Mcg 8 Gm Inhaler) 2 puff INHALE QID PRN PRN Reason: Shortness Of Breath Or Wheezing Albuterol/Ipratropium (Albuterol/Iprat 2.5/0.5mg 3 Ml Ampul.Neb) 3 ml INHALE RQ4H WHILE AWAKE [facility] Last Admin: 03/18/23 11:45 Dose: 3 ml Documented By: KAYDEN Albuterol/Ipratropium (Albuterol/Iprat 2.5/0.5mg 3 Ml Ampul.Neb) 3 ml INHALE Q3H PRN PRN Reason: sob Ascorbic Acid (Ascorbic Acid 500 Mg Tablet) 500 mg PO TuThSa@0900 [facility] Last Admin: 03/18/23 07:57 Dose: 500 mg Documented By: DENISE Calcium Carbonate (Calcium Carbonate 500 Mg Tablet) 500 mg PO BID [facility] Last Admin: 03/18/23 07:57 Dose: 500 mg Documented By: DENISE Docusate Sodium (Docusate Sodium 100 Mg Capsule) 100 mg PO DAILY PRN PRN Reason: Constipation Ferrous Sulfate (Ferrous Sulfate 324 Mg Tablet.Dr) 324 mg PO TuThSa@0900 [facility] Last Admin: 03/18/23 07:58 Dose: 324 mg Documented By: DENISE Fluticasone Propionate (Fluticasone Propionate Nasal 16 Gm [place]) 2 spray NOSTRIL-B BID [facility] Last Admin: 03/18/23 07:58 Dose: 2 spray Documented By: DENISE Fluticasone/Vilanterol (Fluticasone/Vilanterol 200/25 Blst.W.Dev) 1 puff INHALE RDAILY [facility] Last Admin: 03/18/23 07:42 Dose: 1 puff Documented By: KAYDEN Furosemide (Furosemide 20 Mg Tablet) 20 mg PO DAILY [facility]; Protocol Last Admin: 03/18/23 07:58 Dose: 20 mg Documented By: DENISE Guaifenesin (Guaifenesin La 600 Mg Tab.Er.12h) 600 mg PO BID PRN PRN Reason: cough Last Admin: 03/17/23 23:04 Dose: 600 mg Documented By: ISAAC Ceftriaxone Sodium 1 gm/ (Sodium Chloride) 50 mls @ 100 mls/hr IV Q24H [facility] Last Admin: 03/17/23 14:54 Dose: Not Given Documented By: TARA Non-Admin Reason: Off Unit: Surgery Azithromycin 500 mg/ Sodium (Chloride) 250 mls @ 125 mls/hr IV Q24H [facility] Last Infusion: 03/17/23 22:57 Dose: 0 mls/hr Documented By: ISAAC Levothyroxine Sodium (Levothyroxine Sodium 25 Mcg Tablet) 25 mcg PO DAILY@0600 [facility] Last Admin: 03/18/23 05:52 Dose: 25 mcg Documented By: ISAAC Magnesium Oxide (Magnesium Oxide 400 Mg Tablet) 400 mg PO BEDTIME [facility] Last Admin: 03/17/23 20:16 Dose: 400 mg Documented By: ISAAC Methylprednisolone Sodium Succinate (Methylprednisolone Sod Succ 40 Mg/Ml Vial) 40 mg IVPUSH Q12H [facility] Last Admin: 03/18/23 05:52 Dose: 40 mg Documented By: ISAAC Ondansetron HCl (Ondansetron Hcl 4 Mg/2 Ml Vial) 4 mg IVPUSH Q8H PRN PRN Reason: Nausea and Vomiting Pantoprazole Sodium (Pantoprazole Sodium 40 Mg/10 Ml Vial) 40 mg IVPUSH BID@0630,1630 [facility] Last Admin: 03/18/23 05:53 Dose: 40 mg Documented By: ISAAC Polyethyl Glycol/Propylene Glycol (Propylene Glycol/Peg 400 Gel Eye Drops 10ml) 1 drop EYE-BOTH BID [facility] Last Admin: 03/18/23 07:58 Dose: 1 drop Documented By: DENISE Pravastatin Sodium (Pravastatin Sodium 20 Mg Tablet) 20 mg PO BEDTIME [facility] Last Admin: 03/17/23 20:16 Dose: 20 mg Documented By: ISAAC Sodium Chloride (0.9 % Sodium Chloride Flush 3 Ml Syringe) 3 ml IVFLUSH QSHIFT [facility] Last Admin: 03/18/23 07:59 Dose: 3 ml Documented By: DENISE Vitamin D (Cholecalciferol (Vitamin D3) 25 Mcg Tablet) 50 mcg PO BEDTIME [facility] Last Admin: 03/17/23 20:16 Dose: 50 mcg Documented By: ISAAC Labs 03/16/23 06:45 03/16/23 06:45 Microbiology Microbiology Results: Microbiology 03/15/23 12:42 Blood Culture - Preliminary Blood - Venous No growth after 48 hours. 03/15/23 12:19 Blood Culture - Preliminary Blood - Venous No growth after 48 hours. 03/15/23 Unknown Urine Culture - Final Urine clean catch - Urine graves top Assessment and Plan (1) Pneumonitis: Status: Acute (2) Community acquired bacterial pneumonia: Status: Acute Plan 77-year-old female with a PMH significant for?persistent AFib on Eliquis, pulmonary hypertension, HFpEF, cardiomyopathy, COPD with chronic hypoxic respiratory failure on 2L home O2, HTN, HLD, hx of Meniere's disease, JEIMY, and sick sinus syndrome with pacemaker in place who presents to the ED with?worsening SOB, cough, and fatigue for the past few days. Pt will be admitted to the hospital for acute on chronic hypoxic respiratory failure in the setting of pneumonia. Acute on chronic hypoxic respiratory failure Multifactorial: community acquired multifocal pneumonia, COPD, HFpEF mild excerebation Patient SOB slightly improving, productive cough CT of chest showing bilateral lower lobe and right middle lobe infiltrates most consistent with pneumonia Elevated procalcitonin at 0.34, leukocytosis of 13.3,blood cultures pending elevated trop flat echo : The left ventricular systolic function is normal.? The visually estimated ejection fraction is between 60-65%. ? - The left atrium is moderately dilated. ? - There is severe mitral annular calcification.? There is mild to moderate mitral valve regurgitation. ? - There is moderate tricuspid valve regurgitation. ? - Moderate pulmonary hypertension is present.? i/o : 1340/2970 d/w cardiology-sob more likely due to copd/pneumonia -continue ceftriaxone and azithromycin, started 03/15/2023,Duonebs, Solu-Medrol 40 mg IV q.12,lasix switch to po,continue high-flow at 30L per minute, wean as tolerated,Follow lytes, mg, I/O,Daily weights, low-salt diet ICu eval noted -continue above ,hold nitrofurantion. Sepsis-improved. WBC, tachypnea, tachycardiaimproved. Patient started on broad-spectrum antibiotics-caftriaxone/azithromycin(startin date 03/15/23) acute Lactic acidosis, resolved Initial lactic acid 2.9 with repeat WNL at 1.2 Likely secondary to hypoxia, not severe sepsis Elevated troponin Initial troponin? 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 Denies chest pain/pressure, palpitations Most likely demand ischemia insetting of copd/chf/sepsis s/p placement of pacemaker atrial lead , also possible programming her for a AV synchrony and with physiologic AV delays hopefully that she will have not just the synchronization and avoidance of other features of pacemaker syndrome but l have a longer diastolic filling pacemaker tech at bedside . echo as above. UTI Patient diagnosed with UTI 4 days prior, started on Macrobid 100 mg b.i.d. x7 days, last day of antibiotics scheduled for 03/18/2023 Currently asymptomatic:? Denies dysuria, polyuria continue anntibiotics as above. AFib Continue Eliquis HTN Will hold home antihypertensives d/t active diuresing Patient currently normotensive Hypothyroidism Continue levothyroxine HLD Continue statin DVT Prophylaxis: On eliquis ongoing hospitalization stay? for treatment of?acute on chronic hypoxic respiratory failure multifactorial-on high flow, antibiotics ,iv steriods , nebs,monitering respiratory status? Time Spent With Patient Time: Total time managing care of this patient today ____ minutes. Quality Stroke Does the patient have a stroke diagnosis?: No VTE Prior VTE?: No VTE Risk Level:: Medical - moderate - high VTE Device Contraindication: Treatment Not Indicated VTE Drug Contraindication: N/A - Med Ordered
[2023-03-18] MEDS: cefTRIAXone sodium 1 GM in 0.9 % Sodium Chloride 50 ML IV (14:26)
--- NOTE | 2023-03-18 14:32 | HO.POSTANES ---
Post Anesthesia Evaluation Post Anesthesia Evaluation Date of Service: 03/18/23 Vital Signs: Vital Signs Temp Pulse Resp BP Pulse Ox O2 Del Method O2 Flow Rate 03/18/23 11:46 88 18 03/18/23 11:46 18 03/18/23 11:05 97.9 F 84 20 115/64 93 High Flow Nasal Cannula 30 03/18/23 07:44 97.9 F 89 20 134/64 91 L High Flow Nasal Cannula 30 03/18/23 07:45 85 18 03/18/23 07:45 18 03/18/23 04:53 20 03/18/23 03:24 98.0 F 82 20 117/76 97 High Flow Nasal Cannula 30 FiO2 03/18/23 11:46 03/18/23 11:46 03/18/23 11:05 35 03/18/23 07:44 40 03/18/23 07:45 03/18/23 07:45 03/18/23 04:53 03/18/23 03:24 40 Anesthesia: Monitored Pain Control: Satisfactory Nausea/Vomiting: None Hydration: Adequate Anesthesia-Related Issues: No Anes. Related Issues
[2023-03-18] MEDS: Sodium Chloride 0.65 % Nasal 44 ML SPRBTL 1 SPRAY NOSTRIL-B (18:40)
[2023-03-18] MEDS: Cholecalciferol (Vitamin D3) 25 MCG TABLET 50 MCG PO (20:27)
[2023-03-18] MEDS: Magnesium Oxide 400 MG TABLET PO (20:27)
[2023-03-18] MEDS: Azithromycin 500 MG in 0.9 % Sodium Chloride 250 ML 125 MG IV (20:28)
[2023-03-18] MEDS: Pravastatin Sodium 20 MG TABLET PO (20:28)
[2023-03-19] VITALS (12 sets, daily range): BP systolic 123–149; BP diastolic 62–81; PULSE 83–96; RESP 16–26; TEMP 36–36.9; O2SAT 89–97; BMI 26.6
[2023-03-19] MEDS: guaiFENesin LA 600 MG TAB.ER.12H PO (03:02)
[2023-03-19] MEDS: Acetaminophen 325 MG TABLET 650 MG PO ×4 (03:02→20:36)
[2023-03-19] MEDS: Levothyroxine Sodium 25 MCG TABLET PO (05:09)
[2023-03-19] MEDS: methylPREDNISolone Sod Succ 40 MG/ML VIAL IVPUSH ×2 (05:09→17:14)
[2023-03-19] MEDS: Fluticasone/Vilanterol 200/25 BLST.W.DEV 1 PUFF INHALE (08:06)
[2023-03-19] MEDS: Albuterol/Iprat 2.5/0.5MG 3 ML AMPUL.NEB INHALE ×4 (08:06→18:43)
[2023-03-19] MEDS: Fluticasone Propionate Nasal 16 GM SPRAY 2 SPRAY NOSTRIL-B ×2 (09:17→20:37)
[2023-03-19] MEDS: Furosemide 20 MG TABLET PO (09:17)
[2023-03-19] MEDS: Propylene Glycol/PEG 400 Gel Eye Drops 10ML 1 DROP EYE-BOTH ×2 (09:17→20:37)
[2023-03-19] MEDS: 0.9 % Sodium Chloride Flush 3 ML SYRINGE IVFLUSH ×2 (09:27→20:50)
[2023-03-19] MEDS: Apixaban 5 MG TABLET PO ×2 (11:22→20:36)
--- NOTE | 2023-03-19 11:29 | HO.PM.IMPN ---
Subjective Subjective Date of Service: 03/19/23 Interval History: COPD exacerbation, pneumonia Review of Systems sob seems improving slowly but stillrequires high flow,has cough no fevers Physical Exam Vital Signs: Vital Signs: Last Vital Signs Temp 97.8 F 03/19/23 07:30 Pulse 85 03/19/23 08:07 Resp 18 03/19/23 08:07 BP 139/80 03/19/23 07:30 Pulse Ox 94 03/19/23 07:30 O2 Del Method High Flow Nasal C annula 03/19/23 07:30 O2 Flow Rate 30 03/19/23 07:30 FiO2 40 03/19/23 03:28 Oxygen Flow Rate 15 03/15/23 13:57 BMI result Body Mass Index 26.6 Appearance: Alert.? Oriented X3.? sob.? on high flow 30 liter /40% cvs: rrr, [id number] . res:air entry slightly improving,has few rhonchii scattered . abd: no rebound or guarding ,nt, bs present. ext pulses present , no cyanosis ,has 1+leg edema. neuro: axo3 , nonfocal. Objective Data Active Medications Acetaminophen (Acetaminophen 325 Mg Tablet) 650 mg PO Q6H PRN PRN Reason: Pain, Mild (Pain Scale 1-3) Last Admin: 03/19/23 09:17 Dose: 650 mg Documented By: DENISE Albuterol Sulfate (Albuterol Sulfate 90 Mcg 8 Gm Inhaler) 2 puff INHALE QID PRN PRN Reason: Shortness Of Breath Or Wheezing Albuterol/Ipratropium (Albuterol/Iprat 2.5/0.5mg 3 Ml Ampul.Neb) 3 ml INHALE RQ4H WHILE AWAKE [facility] Last Admin: 03/19/23 08:06 Dose: 3 ml Documented By: KAYDEN Albuterol/Ipratropium (Albuterol/Iprat 2.5/0.5mg 3 Ml Ampul.Neb) 3 ml INHALE Q3H PRN PRN Reason: sob Apixaban (Apixaban 5 Mg Tablet) 5 mg PO BID [facility] Last Admin: 03/19/23 11:22 Dose: 5 mg Documented By: DENISE Ascorbic Acid (Ascorbic Acid 500 Mg Tablet) 500 mg PO TuThSa@0900 [facility] Last Admin: 03/18/23 07:57 Dose: 500 mg Documented By: DENISE Calcium Carbonate (Calcium Carbonate 500 Mg Tablet) 500 mg PO BID [facility] Last Admin: 03/19/23 09:17 Dose: 500 mg Documented By: DENISE Docusate Sodium (Docusate Sodium 100 Mg Capsule) 100 mg PO DAILY PRN PRN Reason: Constipation Ferrous Sulfate (Ferrous Sulfate 324 Mg Tablet.Dr) 324 mg PO TuThSa@0900 [facility] Last Admin: 03/18/23 07:58 Dose: 324 mg Documented By: DENISE Fluticasone Propionate (Fluticasone Propionate Nasal 16 Gm [place]) 2 spray NOSTRIL-B BID [facility] Last Admin: 03/19/23 09:17 Dose: 2 spray Documented By: DENISE Fluticasone/Vilanterol (Fluticasone/Vilanterol 200/25 Blst.W.Dev) 1 puff INHALE RDAILY [facility] Last Admin: 03/19/23 08:06 Dose: 1 puff Documented By: KAYDEN Furosemide (Furosemide 20 Mg Tablet) 20 mg PO DAILY [facility]; Protocol Last Admin: 03/19/23 09:17 Dose: 20 mg Documented By: DENISE Guaifenesin (Guaifenesin La 600 Mg Tab.Er.12h) 600 mg PO BID PRN PRN Reason: cough Last Admin: 03/19/23 03:02 Dose: 600 mg Documented By: TWILA Ceftriaxone Sodium 1 gm/ (Sodium Chloride) 50 mls @ 100 mls/hr IV Q24H [facility] Last Infusion: 03/18/23 16:50 Dose: 0 mls/hr Documented By: DENISE Azithromycin 500 mg/ Sodium (Chloride) 250 mls @ 125 mls/hr IV Q24H [facility] Last Infusion: 03/18/23 23:26 Dose: 0 mls/hr Documented By: TWILA Levothyroxine Sodium (Levothyroxine Sodium 25 Mcg Tablet) 25 mcg PO DAILY@0600 [facility] Last Admin: 03/19/23 05:09 Dose: 25 mcg Documented By: TWILA Magnesium Oxide (Magnesium Oxide 400 Mg Tablet) 400 mg PO BEDTIME [facility] Last Admin: 03/18/23 20:27 Dose: 400 mg Documented By: TWILA Methylprednisolone Sodium Succinate (Methylprednisolone Sod Succ 40 Mg/Ml Vial) 40 mg IVPUSH Q12H [facility] Last Admin: 03/19/23 05:09 Dose: 40 mg Documented By: TWILA Ondansetron HCl (Ondansetron Hcl 4 Mg/2 Ml Vial) 4 mg IVPUSH Q8H PRN PRN Reason: Nausea and Vomiting Polyethyl Glycol/Propylene Glycol (Propylene Glycol/Peg 400 Gel Eye Drops 10ml) 1 drop EYE-BOTH BID [facility] Last Admin: 03/19/23 09:17 Dose: 1 drop Documented By: DENISE Pravastatin Sodium (Pravastatin Sodium 20 Mg Tablet) 20 mg PO BEDTIME [facility] Last Admin: 03/18/23 20:28 Dose: 20 mg Documented By: TWILA Sodium Chloride (0.9 % Sodium Chloride Flush 3 Ml Syringe) 3 ml IVFLUSH QSHIFT [facility] Last Admin: 03/19/23 09:27 Dose: 3 ml Documented By: DENISE Sodium Chloride (Sodium Chloride 0.65 % Nasal 44 Ml Sprbtl) 1 spray NOSTRIL-B Q1H PRN PRN Reason: Congestion Last Admin: 03/18/23 18:40 Dose: 1 spray Documented By: DENISE Vitamin D (Cholecalciferol (Vitamin D3) 25 Mcg Tablet) 50 mcg PO BEDTIME [facility] Last Admin: 03/18/23 20:27 Dose: 50 mcg Documented By: TWILA Labs 03/16/23 06:45 03/16/23 06:45 Assessment and Plan (1) Pneumonitis: Status: Acute (2) Community acquired bacterial pneumonia: Status: Acute Plan 77-year-old female with a PMH significant for?persistent AFib on Eliquis, pulmonary hypertension, HFpEF, cardiomyopathy, COPD with chronic hypoxic respiratory failure on 2L home O2, HTN, HLD, hx of Meniere's disease, JEIMY, and sick sinus syndrome with pacemaker in place who presents to the ED with?worsening SOB, cough, and fatigue for the past few days. Pt will be admitted to the hospital for acute on chronic hypoxic respiratory failure in the setting of pneumonia. Acute on chronic hypoxic respiratory failure Multifactorial: community acquired multifocal pneumonia, COPD, HFpEF mild excerebation Patient SOB slightly improving, productive cough CT of chest showing bilateral lower lobe and right middle lobe infiltrates most consistent with pneumonia Elevated procalcitonin at 0.34, leukocytosis of 13.3,blood cultures pending elevated trop flat echo : The left ventricular systolic function is normal.? The visually estimated ejection fraction is between 60-65%. ? - The left atrium is moderately dilated. ? - There is severe mitral annular calcification.? There is mild to moderate mitral valve regurgitation. ? - There is moderate tricuspid valve regurgitation. ? - Moderate pulmonary hypertension is present.? i/o : 2490/3975 ,1.5liter neg d/w cardiology-sob more likely due to copd/pneumonia -continue ceftriaxone and azithromycin, started 03/15/2023,Duonebs, Solu-Medrol 40 mg IV q.12,lasix switch to po,continue high-flow at 30L per minute, wean as tolerated,Follow lytes, mg, I/O,Daily weights, low-salt diet ICu eval noted -continue above ,hold nitrofurantion. Sepsis-improved. WBC, tachypnea, tachycardiaimproved. Patient started on broad-spectrum antibiotics-caftriaxone/azithromycin(startin date 03/15/23) acute Lactic acidosis, resolved Initial lactic acid 2.9 with repeat WNL at 1.2 Likely secondary to hypoxia, not severe sepsis Elevated troponin Initial troponin? 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 Denies chest pain/pressure, palpitations Most likely demand ischemia insetting of copd/chf/sepsis s/p placement of pacemaker atrial lead , also possible programming her for a AV synchrony and with physiologic AV delays hopefully that she will have not just the synchronization and avoidance of other features of pacemaker syndrome but l have a longer diastolic filling pacemaker tech at bedside . echo as above. UTI Patient diagnosed with UTI 4 days prior, started on Macrobid 100 mg b.i.d. x7 days, last day of antibiotics scheduled for 03/18/2023 Currently asymptomatic:? Denies dysuria, polyuria continue anntibiotics as above. AFib Continue Eliquis HTN Will hold home antihypertensives d/t active diuresing Patient currently normotensive Hypothyroidism Continue levothyroxine HLD Continue statin DVT Prophylaxis: On eliquis ongoing hospitalization stay? for treatment of?acute on chronic hypoxic respiratory failure multifactorial-on high flow, antibiotics ,iv steriods , nebs,monitering respiratory status? Time Spent With Patient Time: Total time managing care of this patient today ____ minutes. Quality Stroke Does the patient have a stroke diagnosis?: No VTE Prior VTE?: No VTE Risk Level:: Medical - moderate - high VTE Device Contraindication: Treatment Not Indicated VTE Drug Contraindication: N/A - Med Ordered
[2023-03-19] MEDS: cefTRIAXone sodium 1 GM in 0.9 % Sodium Chloride 50 ML IV (14:38)
[2023-03-19] MEDS: Sodium Chloride 0.65 % Nasal 44 ML SPRBTL 1 SPRAY NOSTRIL-B (14:38)
[2023-03-19 17:02] LABS: Anion Gap 13 (12-20); Blood Urea Nitrogen 23 mg/dL (9-16); Calcium 8.6 mg/dL (8.4-10.2); Carbon Dioxide 28 mmol/L (22-29); Chloride 100 mmol/L (96-108); Creatinine Clr Calc Pharmacy 55.2; Estimated Glomerular Filt Rate > 60; Glucose Random 139 mg/dL (60-115); Potassium 3.6 mmol/L (3.3-5.1); Sodium 137 mmol/L (135-145)
[2023-03-19 17:10] LABS: B Type Natriuretic Peptide 1432 pg/mL (<100)
[2023-03-19] MEDS: Cholecalciferol (Vitamin D3) 25 MCG TABLET 50 MCG PO (20:36)
[2023-03-19] MEDS: Pravastatin Sodium 20 MG TABLET PO (20:36)
[2023-03-19] MEDS: Magnesium Oxide 400 MG TABLET PO (20:37)
[2023-03-19] MEDS: Azithromycin 500 MG in 0.9 % Sodium Chloride 250 ML 125 MG IV (20:37)
[2023-03-20] VITALS (12 sets, daily range): BP systolic 116–151; BP diastolic 61–88; PULSE 77–92; RESP 18–20; TEMP 36.1–37.2; O2SAT 80–100; BMI 24.7
[2023-03-20] MEDS: Acetaminophen 325 MG TABLET 650 MG PO ×2 (05:50→18:31)
[2023-03-20] MEDS: Levothyroxine Sodium 25 MCG TABLET PO (05:50)
[2023-03-20] MEDS: methylPREDNISolone Sod Succ 40 MG/ML VIAL IVPUSH ×2 (05:51→10:16)
[2023-03-20] MEDS: Fluticasone/Vilanterol 200/25 BLST.W.DEV 1 PUFF INHALE (07:32)
[2023-03-20] MEDS: Albuterol/Iprat 2.5/0.5MG 3 ML AMPUL.NEB INHALE ×4 (07:32→18:55)
[2023-03-20] MEDS: Fluticasone Propionate Nasal 16 GM SPRAY 2 SPRAY NOSTRIL-B ×2 (10:16→22:01)
[2023-03-20] MEDS: Propylene Glycol/PEG 400 Gel Eye Drops 10ML 1 DROP EYE-BOTH ×2 (10:16→22:01)
[2023-03-20] MEDS: 0.9 % Sodium Chloride Flush 3 ML SYRINGE IVFLUSH ×2 (10:16→21:53)
[2023-03-20] MEDS: Omeprazole 20 MG CAPSULE.DR PO (10:16)
[2023-03-20] MEDS: amLODIPine Besylate 2.5 MG TABLET PO (10:17)
[2023-03-20] MEDS: guaiFENesin LA 600 MG TAB.ER.12H PO ×2 (10:17→21:53)
[2023-03-20] MEDS: Apixaban 5 MG TABLET PO ×2 (10:17→21:53)
[2023-03-20] MEDS: Furosemide 20 MG TABLET PO (10:17)
--- NOTE | 2023-03-20 10:41 | MHC.CM.PN ---
Per ROUNDS discussion, Patient is not yet medically cleared for dc (off of high flow and still SOB); Home/resume services is the goal and CM will continue to follow.
--- NOTE | 2023-03-20 13:49 | HO.PM.IMPN ---
Subjective Subjective Date of Service: 03/20/23 Interval History: COPD exacerbation, pneumonia Review of Systems sob seems improving ,tapered off high flow ,has cough no fevers, generlaised weak. Physical Exam Vital Signs: Vital Signs: Last Vital Signs Temp 98.9 F 03/20/23 10:58 Pulse 77 03/20/23 11:10 Resp 18 03/20/23 11:10 BP 143/77 H 03/20/23 10:58 Pulse Ox 97 03/20/23 10:58 O2 Del Method Nasal Cannula 03/20/23 10:58 O2 Flow Rate 4 03/20/23 10:58 FiO2 37.3 03/20/23 07:01 Oxygen Flow Rate 15 03/15/23 13:57 BMI result Body Mass Index 24.7 Appearance: Alert.? Oriented X3.? sob intermittent still with mild excersion off high flow now on 4 liters nc oxygen cvs: rrr, [id number] . res:air entry slightly improving,has few rhonchii scattered . abd: no rebound or guarding ,nt, bs present. ext pulses present , no cyanosis,trace edema. neuro: axo3 , nonfocal. Objective Data Active Medications Acetaminophen (Acetaminophen 325 Mg Tablet) 650 mg PO Q6H PRN PRN Reason: Pain, Mild (Pain Scale 1-3) Last Admin: 03/20/23 05:50 Dose: 650 mg Documented By: ISABELL Albuterol Sulfate (Albuterol Sulfate 90 Mcg 8 Gm Inhaler) 2 puff INHALE QID PRN PRN Reason: Shortness Of Breath Or Wheezing Albuterol/Ipratropium (Albuterol/Iprat 2.5/0.5mg 3 Ml Ampul.Neb) 3 ml INHALE RQ4H WHILE AWAKE [facility] Last Admin: 03/20/23 11:05 Dose: 3 ml Documented By: DALIA Albuterol/Ipratropium (Albuterol/Iprat 2.5/0.5mg 3 Ml Ampul.Neb) 3 ml INHALE Q3H PRN PRN Reason: sob Amlodipine Besylate (Amlodipine Besylate 2.5 Mg Tablet) 2.5 mg PO DAILY [facility]; Protocol Last Admin: 03/20/23 10:17 Dose: 2.5 mg Documented By: DENISE Apixaban (Apixaban 5 Mg Tablet) 5 mg PO BID [facility] Last Admin: 03/20/23 10:17 Dose: 5 mg Documented By: DENISE Ascorbic Acid (Ascorbic Acid 500 Mg Tablet) 500 mg PO TuThSa@0900 [facility] Last Admin: 03/18/23 07:57 Dose: 500 mg Documented By: DENISE Calcium Carbonate (Calcium Carbonate 500 Mg Tablet) 500 mg PO BID [facility] Last Admin: 03/20/23 10:17 Dose: 500 mg Documented By: DENISE Docusate Sodium (Docusate Sodium 100 Mg Capsule) 100 mg PO DAILY PRN PRN Reason: Constipation Ferrous Sulfate (Ferrous Sulfate 324 Mg Tablet.Dr) 324 mg PO TuThSa@0900 [facility] Last Admin: 03/18/23 07:58 Dose: 324 mg Documented By: DENISE Fluticasone Propionate (Fluticasone Propionate Nasal 16 Gm [place]) 2 spray NOSTRIL-B BID [facility] Last Admin: 03/20/23 10:16 Dose: 2 spray Documented By: DENISE Fluticasone/Vilanterol (Fluticasone/Vilanterol 200/25 Blst.W.Dev) 1 puff INHALE RDAILY [facility] Last Admin: 03/20/23 07:32 Dose: 1 puff Documented By: DALIA Furosemide (Furosemide 20 Mg Tablet) 20 mg PO DAILY [facility]; Protocol Last Admin: 03/20/23 10:17 Dose: 20 mg Documented By: DENISE Guaifenesin (Guaifenesin La 600 Mg Tab.Er.12h) 600 mg PO BID PRN PRN Reason: cough Last Admin: 03/20/23 10:17 Dose: 600 mg Documented By: DENISE Ceftriaxone Sodium 1 gm/ (Sodium Chloride) 50 mls @ 100 mls/hr IV Q24H [facility] Last Infusion: 03/19/23 15:24 Dose: 0 mls/hr Documented By: DENISE Azithromycin 500 mg/ Sodium (Chloride) 250 mls @ 125 mls/hr IV Q24H [facility] Last Infusion: 03/19/23 22:38 Dose: 0 mls/hr Documented By: ISABELL Levothyroxine Sodium (Levothyroxine Sodium 25 Mcg Tablet) 25 mcg PO DAILY@0600 [facility] Last Admin: 03/20/23 05:50 Dose: 25 mcg Documented By: ISABELL Magnesium Oxide (Magnesium Oxide 400 Mg Tablet) 400 mg PO BEDTIME [facility] Last Admin: 03/19/23 20:37 Dose: 400 mg Documented By: ISABELL Methylprednisolone Sodium Succinate (Methylprednisolone Sod Succ 40 Mg/Ml Vial) 40 mg IVPUSH DAILY [facility] Last Admin: 03/20/23 10:16 Dose: 40 mg Documented By: DENISE Omeprazole (Omeprazole 20 Mg Capsule.Dr) 20 mg PO DAILY@0630 [facility] Last Admin: 03/20/23 10:16 Dose: 20 mg Documented By: DENISE Ondansetron HCl (Ondansetron Hcl 4 Mg/2 Ml Vial) 4 mg IVPUSH Q8H PRN PRN Reason: Nausea and Vomiting Polyethyl Glycol/Propylene Glycol (Propylene Glycol/Peg 400 Gel Eye Drops 10ml) 1 drop EYE-BOTH BID [facility] Last Admin: 03/20/23 10:16 Dose: 1 drop Documented By: DENISE Pravastatin Sodium (Pravastatin Sodium 20 Mg Tablet) 20 mg PO BEDTIME [facility] Last Admin: 03/19/23 20:36 Dose: 20 mg Documented By: ISABELL Sodium Chloride (0.9 % Sodium Chloride Flush 3 Ml Syringe) 3 ml IVFLUSH QSHIFT [facility] Last Admin: 03/20/23 10:16 Dose: 3 ml Documented By: DENISE Sodium Chloride (Sodium Chloride 0.65 % Nasal 44 Ml Sprbtl) 1 spray NOSTRIL-B Q1H PRN PRN Reason: Congestion Last Admin: 03/19/23 14:38 Dose: 1 spray Documented By: DENISE Vitamin D (Cholecalciferol (Vitamin D3) 25 Mcg Tablet) 50 mcg PO BEDTIME [facility] Last Admin: 03/19/23 20:36 Dose: 50 mcg Documented By: ISABELL Labs 03/16/23 06:45 03/19/23 16:34 Labs: Laboratory Results - last 24 hr 03/19/23 03/19/23 16:34 16:34 Anion Gap 13 Estim Creat Clear Calc 55.2 Estimated GFR > 60 Random Glucose 139 H Calcium 8.6 B-Natriuretic Peptide 1432 H Assessment and Plan (1) Pneumonitis: Status: Acute (2) Community acquired bacterial pneumonia: Status: Acute Plan 77-year-old female with a PMH significant for?persistent AFib on Eliquis, pulmonary hypertension, HFpEF, cardiomyopathy, COPD with chronic hypoxic respiratory failure on 2L home O2, HTN, HLD, hx of Meniere's disease, JEIMY, and sick sinus syndrome with pacemaker in place who presents to the ED with?worsening SOB, cough, and fatigue for the past few days. Pt will be admitted to the hospital for acute on chronic hypoxic respiratory failure in the setting of pneumonia. Acute on chronic hypoxic respiratory failure Multifactorial: community acquired multifocal pneumonia, COPD, HFpEF mild excerebation Patient SOB slightly improving, productive cough CT of chest showing bilateral lower lobe and right middle lobe infiltrates most consistent with pneumonia Elevated procalcitonin at 0.34, leukocytosis of 13.3,blood cultures pending elevated trop flat echo : The left ventricular systolic function is normal.? The visually estimated ejection fraction is between 60-65%. ? - The left atrium is moderately dilated. ? - There is severe mitral annular calcification.? There is mild to moderate mitral valve regurgitation. ? - There is moderate tricuspid valve regurgitation. ? - Moderate pulmonary hypertension is present.? i/o : [id number] ,2.3liter neg bnp improving [id number] d/w cardiology-sob more likely due to copd/pneumonia(pneumonitis ) -continue ceftriaxone and azithromycin( 03/15/2023),Duonebs,switch to Solu-Medrol 40 mg IV q.daily ,lasix switch to po, taper oxygen,wean as tolerated,Follow lytes, mg, I/O,Daily weights, low-salt diet hold nitrofurantion Id eval. Sepsis-improved. WBC, tachypnea, tachycardiaimproved. Patient started on broad-spectrum antibiotics-caftriaxone/azithromycin(startin date 03/15/23) acute Lactic acidosis, resolved Initial lactic acid 2.9 with repeat WNL at 1.2 Likely secondary to hypoxia, not severe sepsis Elevated troponin Initial troponin? 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 Denies chest pain/pressure, palpitations Most likely demand ischemia insetting of copd/chf/sepsis In Addition: s/p placement of pacemaker atrial lead , also possible programming her for a AV synchrony and with physiologic AV delays hopefully that she will have not just the synchronization and avoidance of other features of pacemaker syndrome but have a longer diastolic filling pacemaker tech at bedside . echo as above. Patient need to follow up cardiology -Dr Coto outpatient . UTI Patient diagnosed with UTI 4 days prior, started on Macrobid 100 mg b.i.d. x7 days, last day of antibiotics scheduled for 03/18/2023 Currently asymptomatic:? Denies dysuria, polyuria continue anntibiotics as above. AFib Continue Eliquis HTN Will hold home antihypertensives d/t active diuresing Patient currently normotensive Hypothyroidism Continue levothyroxine HLD Continue statin DVT Prophylaxis: On eliquis ongoing hospitalization stay? for treatment of?:acute on chronic hypoxic respiratory failure multifactorial-on high flow, antibiotics ,iv steriods , nebs,monitering respiratory status? Time Spent With Patient Time: Total time managing care of this patient today ____ minutes. Quality Stroke Does the patient have a stroke diagnosis?: No VTE Prior VTE?: No VTE Risk Level:: Medical - moderate - high VTE Device Contraindication: Treatment Not Indicated VTE Drug Contraindication: N/A - Med Ordered
[2023-03-20] MEDS: cefTRIAXone sodium 1 GM in 0.9 % Sodium Chloride 50 ML IV (15:04)
--- NOTE | 2023-03-20 16:41 | W.PM.IDCN ---
History of Present Illness Data of Consult Service Date: 03/20/23 Requesting physician: [place] Fajardo Primary Care Provider: Freida Yarbrough MD HPI Reason for consult: shortness of breath She presents with shortness of breath and hypoxia day of admission. CXR now shows COPD and no lobar infiltrate. Urinalysis shows pyuria but no bacterial infection,contaminated She has Sepulveda. She reports taking macrodantin but no terminal superintendent use past a week reported. Review of Systems Review of Systems: Yes all other systems are reviewed and are negative [facility] Past Medical History Medical History Cardiac pacemaker in situ CHF (congestive heart failure) Chronic anticoagulation COPD (chronic obstructive pulmonary disease) HTN (hypertension) Hyperlipemia Hyponatremia Meniere disease Osteoporosis PAF (paroxysmal atrial fibrillation) Pneumonia Renal failure Rhabdomyolysis Sleep apnea SSS (sick sinus syndrome) Family History Family History Father Lung cancer Mother COPD (chronic obstructive pulmonary disease) Family history: reviewed and not pertinent Surgical History Surgical History History of cardiac cath History of endoscopy History of hysterectomy History of permanent cardiac pacemaker placement Social History Social History Household Members: Spouse Housing: House Do you presently have visiting nurse or other home services: Yes (VNA and OT) Alcohol intake: never Patient Tobacco Use Status: Former Tobacco user Quit Date: 1989 Smoked: 30 +/- Smoked in Last 30 Days: No e-Cigarette/Vaping Use: Never Used Second Hand Smoke Exposure: No Use of substances other than those prescribed or required for medical reasons: No Currently Displaying Signs/Symptoms of Drug Intoxication Withdrawal: No Have you been hit, kicked, punched, or otherwise hurt by someone within the past year? If so, by whom?: No Do you feel safe in your current relationship?: Yes Is there a partner from a previous relationship who is making you feel unsafe now?: No Are you made to feel afraid or neglected: No Are you DNR?: No Advance Directives: Yes Advance Directives on File: Yes Advance Directives Date on File: 02/06/23 Recently lost weight without trying: Yes How much weight loss: 2-13 pounds Eating poorly because of decreased appetite: Yes Nutrition screen score: 4 Nutrition Risks: No Nutritional Risk Patient : No : No Poor oral hygiene: No service: No Current occupational status: retired Cognitive needs: No Hearing needs: Yes Vision needs: Yes Meds Allergies Allergy/AdvReac Type Severity Reaction Status Date / Time gemifloxacin Allergy Unknown Rash Verified 03/15/23 11:46 montelukast [Singulair] Allergy Unknown mood swings Verified 03/15/23 11:46 prednisone Allergy Unknown sob Verified 03/15/23 11:46 Active Medications: Current Medications Acetaminophen (Acetaminophen 325 Mg Tablet) 650 mg PO Q6H PRN PRN Reason: Pain, Mild (Pain Scale 1-3) Last Admin: 03/20/23 05:50 Dose: 650 mg Albuterol Sulfate (Albuterol Sulfate 90 Mcg 8 Gm Inhaler) 2 puff INHALE QID PRN PRN Reason: Shortness Of Breath Or Wheezing Albuterol/Ipratropium (Albuterol/Iprat 2.5/0.5mg 3 Ml Ampul.Neb) 3 ml INHALE RQ4H WHILE AWAKE [facility] Last Admin: 03/20/23 15:08 Dose: 3 ml Albuterol/Ipratropium (Albuterol/Iprat 2.5/0.5mg 3 Ml Ampul.Neb) 3 ml INHALE Q3H PRN PRN Reason: sob Amlodipine Besylate (Amlodipine Besylate 2.5 Mg Tablet) 2.5 mg PO DAILY [facility]; Protocol Last Admin: 03/20/23 10:17 Dose: 2.5 mg Apixaban (Apixaban 5 Mg Tablet) 5 mg PO BID [facility] Last Admin: 03/20/23 10:17 Dose: 5 mg Ascorbic Acid (Ascorbic Acid 500 Mg Tablet) 500 mg PO TuThSa@0900 [facility] Last Admin: 03/18/23 07:57 Dose: 500 mg Calcium Carbonate (Calcium Carbonate 500 Mg Tablet) 500 mg PO BID [facility] Last Admin: 03/20/23 10:17 Dose: 500 mg Docusate Sodium (Docusate Sodium 100 Mg Capsule) 100 mg PO DAILY PRN PRN Reason: Constipation Ferrous Sulfate (Ferrous Sulfate 324 Mg Tablet.) 324 mg PO TuThSa@0900 [facility] Last Admin: 03/18/23 07:58 Dose: 324 mg Fluticasone Propionate (Fluticasone Propionate Nasal 16 Gm [place]) 2 spray NOSTRIL-B BID [facility] Last Admin: 03/20/23 10:16 Dose: 2 spray Fluticasone/Vilanterol (Fluticasone/Vilanterol 200/25 Blst.W.Dev) 1 puff INHALE RDAILY [facility] Last Admin: 03/20/23 07:32 Dose: 1 puff Furosemide (Furosemide 20 Mg Tablet) 20 mg PO DAILY [facility]; Protocol Last Admin: 03/20/23 10:17 Dose: 20 mg Guaifenesin (Guaifenesin La 600 Mg Tab.Er.12h) 600 mg PO BID PRN PRN Reason: cough Last Admin: 03/20/23 10:17 Dose: 600 mg Ceftriaxone Sodium 1 gm/ (Sodium Chloride) 50 mls @ 100 mls/hr IV Q24H [facility] Last Infusion: 03/20/23 15:45 Dose: Infused Azithromycin 500 mg/ Sodium (Chloride) 250 mls @ 125 mls/hr IV Q24H [facility] Last Infusion: 03/19/23 22:38 Dose: Infused Levothyroxine Sodium (Levothyroxine Sodium 25 Mcg Tablet) 25 mcg PO DAILY@0600 [facility] Last Admin: 03/20/23 05:50 Dose: 25 mcg Magnesium Oxide (Magnesium Oxide 400 Mg Tablet) 400 mg PO BEDTIME [facility] Last Admin: 03/19/23 20:37 Dose: 400 mg Methylprednisolone Sodium Succinate (Methylprednisolone Sod Succ 40 Mg/Ml Vial) 40 mg IVPUSH DAILY [facility] Last Admin: 03/20/23 10:16 Dose: 40 mg Omeprazole (Omeprazole 20 Mg Capsule.Dr) 20 mg PO DAILY@0630 [facility] Last Admin: 03/20/23 10:16 Dose: 20 mg Ondansetron HCl (Ondansetron Hcl 4 Mg/2 Ml Vial) 4 mg IVPUSH Q8H PRN PRN Reason: Nausea and Vomiting Polyethyl Glycol/Propylene Glycol (Propylene Glycol/Peg 400 Gel Eye Drops 10ml) 1 drop EYE-BOTH BID [facility] Last Admin: 03/20/23 10:16 Dose: 1 drop Pravastatin Sodium (Pravastatin Sodium 20 Mg Tablet) 20 mg PO BEDTIME [facility] Last Admin: 03/19/23 20:36 Dose: 20 mg Sodium Chloride (0.9 % Sodium Chloride Flush 3 Ml Syringe) 3 ml IVFLUSH QSHIFT [facility] Last Admin: 03/20/23 15:05 Dose: Not Given Sodium Chloride (Sodium Chloride 0.65 % Nasal 44 Ml Sprbtl) 1 spray NOSTRIL-B Q1H PRN PRN Reason: Congestion Last Admin: 03/19/23 14:38 Dose: 1 spray Vitamin D (Cholecalciferol (Vitamin D3) 25 Mcg Tablet) 50 mcg PO BEDTIME [facility] Last Admin: 03/19/23 20:36 Dose: 50 mcg Home Medications Medication Instructions Recorded Confirmed Last Taken Type calcium carbonate 600 mg calcium 600 mg PO BID 07/16/22 03/15/23 01/31/23 History (1,500 mg) tablet (Calcium) cholecalciferol (vitamin D3) 50 50 mcg PO BEDTIME 07/16/22 03/15/23 01/31/23 History mcg (2,000 unit) tablet (Vitamin D3) fluticasone propionate 50 2 spray intranasal BID 07/16/22 03/15/23 01/31/23 History mcg/actuation nasal spray,suspension magnesium 200 mg tablet 400 mg PO BEDTIME 07/16/22 03/15/23 01/31/23 History pravastatin 20 mg tablet 20 mg PO BEDTIME 07/16/22 03/15/23 01/31/23 History levothyroxine 25 mcg tablet 25 mcg PO DAILY@0600 01/31/23 03/15/23 01/31/23 History peg 400-propylene glycol (PF) 0.4 1 drp ophthalmic (eye) BID 01/31/23 03/15/23 01/31/23 History %-0.3 % eye drops in a dropperette (Systane (PF)) amlodipine 5 mg tablet 5 mg PO DAILY 03/10/23 03/15/23 Unknown History acetaminophen 325 mg tablet 650 mg PO Q6H PRN Pain 03/15/23 03/15/23 Unknown History ascorbic acid (vitamin C) 500 mg 500 mg PO TUTHSA 03/15/23 03/15/23 Unknown History tablet ferrous sulfate 324 mg (65 mg 324 mg PO TUTHSA 03/15/23 03/15/23 Unknown History iron) tablet,delayed release fluticasone 500 mcg-salmeterol 50 1 inh inhalation Q12H 03/15/23 03/15/23 Unknown History mcg/dose blistr powdr for inhalation (Wixela Inhub) ipratropium 0.5 mg-albuterol 3 mg 3 ml inhalation TID 03/15/23 03/15/23 Unknown History (2.5 mg base)/3 mL nebulization soln Physical Exam Vital Signs: Vital Signs: Last Vital Signs Temp 97.3 F 03/20/23 15:24 Pulse 86 03/20/23 15:24 Resp 19 03/20/23 15:24 BP 147/80 H 03/20/23 15:24 Pulse Ox 100 03/20/23 15:24 O2 Del Method Nasal Cannula 03/20/23 15:24 O2 Flow Rate 4 03/20/23 10:58 FiO2 37.3 03/20/23 07:01 Oxygen Flow Rate 15 03/15/23 13:57 BMI result Body Mass Index 24.7 Const: General: cooperative HEENT: Head: Yes normal to inspection Face and sinus: Yes normal facial exam Mouth: Normal oral and palatal mucosa present Teeth and gingiva: dentition normal Eyes: General: appearance normal, both eyes and all related structures Pupils: Equal, round and reactive pupils present Resp: Effort & Inspection: normal respiratory effort Cardio: Rate: regular rate Rhythm: regular rhythm GI: Palpation (GI): Soft to palpation and nontender : General: Yes no CVA tenderness Back/Spine/Pelvis: Back: no CVA tenderness Skin: General skin exam: no rashes or lesions noted Neuro: General: moves all extremities Cranial nerves: Yes Equal, round and reactive pupils present Extrem: General: Yes normal to inspection Psych: Appearance: grossly normal Results Labs 03/16/23 06:45 03/19/23 16:34 Labs: BMP 03/19/23 16:34 Sodium 137 Potassium 3.6 Chloride 100 Carbon Dioxide 28 BUN 23 H Creatinine 0.69 Calcium 8.6 Microbiology Microbiology Results: Microbiology 03/15/23 12:42 Blood - Venous Blood Culture - Final No growth after 5 days. 03/15/23 12:19 Blood - Venous Blood Culture - Final No growth after 5 days. 03/15/23 Unknown Urine clean catch - Urine graves top Urine Culture - Final Assessment and Plan (1) Pneumonitis: Status: Acute The pneumonitis may be due to chronic toxins or autoimmune phenomena. She has no specific etiology but has Sepulveda and oxygen. (2) Hypoxia: Status: Acute (3) COPD (chronic obstructive pulmonary disease): Status: Acute Plan If no more specific cultures are found then po Doxycycline 100 mg bid outpatient for week cover lung organisms. Time Spent With Patient Time: Total time managing care of this patient today ____ minutes.
[2023-03-20] MEDS: Pravastatin Sodium 20 MG TABLET PO (21:52)
[2023-03-20] MEDS: Azithromycin 500 MG in 0.9 % Sodium Chloride 250 ML 125 MG IV (21:53)
[2023-03-20] MEDS: Magnesium Oxide 400 MG TABLET PO (21:53)
[2023-03-20] MEDS: Cholecalciferol (Vitamin D3) 25 MCG TABLET 50 MCG PO (21:53)
[2023-03-21] VITALS (9 sets, daily range): BP systolic 130–144; BP diastolic 72–82; PULSE 73–90; RESP 16–20; TEMP 36.1–36.7; O2SAT 88–99; BMI 25.1
[2023-03-21] MEDS: Albuterol/Iprat 2.5/0.5MG 3 ML AMPUL.NEB INHALE ×4 (00:39→14:46)
[2023-03-21] MEDS: Acetaminophen 325 MG TABLET 650 MG PO (05:11)
[2023-03-21] MEDS: Levothyroxine Sodium 25 MCG TABLET PO (05:11)
[2023-03-21] MEDS: Omeprazole 20 MG CAPSULE.DR PO (05:11)
[2023-03-21] MEDS: Fluticasone/Vilanterol 200/25 BLST.W.DEV 1 PUFF INHALE (07:36)
--- NOTE | 2023-03-21 07:57 | P.DS_ITS ---
DS: Providers Provider Date of Service: 03/21/23 Date of admission: 03/15/23 15:13 Primary care physician: Freida Yarbrough MD Consults: 03/15/23 15:48 Consult to Critical Care Routine Consulting Provider: Bar Robles Reason for consultation: Level of care Has provider been notified: No 03/20/23 12:18 Consult to Infectious Diseases Routine Consulting Provider: [facility] [place] Infectious Disease Reason for consultation: pneumonia Has provider been notified: No DS: Diagnosis Discharge Diagnosis (1) Pneumonitis: Status: Acute (2) Hypoxia: Status: Acute (3) COPD (chronic obstructive pulmonary disease): Status: Acute DS: Summary Hospital Course Hospital Course: Chief Complaint: SOB Pt is a 77-year-old female with a PMH significant for?persistent AFib on Eliquis, pulmonary hypertension, HFpEF, cardiomyopathy, COPD with chronic hypoxic respiratory failure on 2L home O2, HTN, HLD, hx of Meniere's disease, JEIMY, and sick sinus syndrome with pacemaker in place who presents to the ED with?worsening SOB, cough, and fatigue for the past few days. Pt has been taking Mucinex and cough has been occasionally productive green and yellowish sputum.? She reports being compliant with all of her medications, including her home furosemide.? Is chronically on 2 L home O2, increased today to 4 L d/t SOB.? She has also been noticing increased lower leg edema the past few days.? Patient notes on Monday she was diagnosed with UTI and started on Macrobid 100 mg b.i.d. x7 days.? Patient also notes that she was recently diagnosed with AFib few months ago and started on Eliquis.? Also recently diagnosed with hypothyroidism and started on levothyroxine.? Patient denies chest pain/pressure, palpitations.? States she has no pain anywhere. In the ED patient was afebrile but tachypneic up to 34, satting as low as 83% on OxyMask at 15L. Labs were significant for leukocytosis of 13.3, H&H of 11.9/36.9, lactic acid 2.9 with repeat WNL 1.2, effect troponin of 224.2 with repeat flat at 230.7, BNP 1462, procalcitonin 0.34. Electrolytes WNL. CXR showed mild CHF with increased patchy infiltrates, and prominence of main pulmonary artery suggestive of pulmonary hypertension. CT?of chest showed bilateral lower lobe and right middle lobe infiltrates most consistent with pneumonia. EKG demonstrated atrial fibrillation. Pt was treated with DuoNeb, furosemide 20 mg IV, ceftriaxone, and nitroglycerin paste.? Pt will be admitted to the hospital for acute on chronic hypoxic respiratory failure in the setting of pneumonia. Hospital course: This patient presented with shortness of breath and found to have multifocal pneumonia, heart failure and COPD. Pneumonia was treated initially treated with Ceftriaxone and Azithromycin from 03/15 to 03/20 and is now changed to Doxycyline for an additional 7 days. COPD exacerbation was treated with IV solumedrol, bronchodilators by Nebulizer and her usual oxygen, Acute hypoxic respiratory failure seem to have signficantly improved. Heart Failure with preserved EF--initial BNP was high, but came down, she initially treated with IV Lasix and later changed to PO lasix, was seen by cardiology and had another echo done showing EF of 60 to 65%, cardiology thought her symptoms were more related to her pulonary symptoms Sepsis due to pneumonia, Antibiotics therapy as above, sepsis was present on admission and is resolved. Acute Lactic acidosis due to hypoxia, resolved. Elevated troponin related due to demand ischemia, and no further work up. Patient was seen by cardiology with no indication for further work up UTI--was treated with Abx on outpatient x 4 days, then treated ceftriaxone as above AFib Continue Eliquis HTN-resume whome meds Hypothyroidism Continue levothyroxine HLD Continue statin Time Spent with Patient Time attestation: Total time managing care of this patient today ____ minutes. Discharge coordination time: Greater than 30 minutes Quality: Safe Use of Opioids Does Pt have an Active Cancer Diagnosis on the Problem List?: No Quality: Stroke Does the patient have a stroke diagnosis?: No Physical Exam Vital Signs: Vital Signs: Last Vital Signs Temp 98.0 F 03/21/23 07:39 Pulse 74 03/21/23 07:39 Resp 16 03/21/23 07:39 BP 144/82 H 03/21/23 07:39 Pulse Ox 98 03/21/23 07:39 O2 Del Method Nasal Cannula 03/21/23 07:39 O2 Flow Rate 3 03/21/23 07:39 FiO2 37.3 03/20/23 07:01 Oxygen Flow Rate 15 03/15/23 13:57 BMI result Body Mass Index 25.1 DS: Data Data Completed and Pending Completed studies during hospitalization [Text1]: Procedures Excision of Cecum, Via Natural or Artificial Opening Endoscopic, Diagnostic (01/31/23) Excision of Esophagogastric Junction, Via Natural or Artificial Opening Endoscopic, Diagnostic (01/31/23) Excision of Transverse Colon, Via Natural or Artificial Opening Endoscopic, Diagnostic (01/31/23) Transfusion of Nonautologous Red Blood Cells into Peripheral Vein, Percutaneous Approach (01/31/23) Discharge Plan Discharge Anticipated Discharge Date/Time: 03/21/23 13:54 Patient Disposition: Xfer SNF Discharge Diagnosis: Acute hypoxic respiratory failure, pneumonia, copd exacerbation Referrals: [facility] [Outside] - 1 Week Freida Yarbrough MD [Primary Care Provider] - 1 Week Discharge Medications: New doxycycline monohydrate 100 mg Capsule 100 mg PO Q12H Qty: 12 0RF prednisone 20 mg tablet 20 mg PO DAILY Qty: 3 0RF Continued Eliquis 5 mg tablet 5 mg PO BID Qty: 180 3RF Hold Instructions: Resume on 02/04/23. furosemide 20 mg tablet 20 mg PO BID Qty: 180 1RF pravastatin 20 mg tablet 20 mg PO BEDTIME calcium carbonate [Calcium 600] 600 mg calcium (1,500 mg) Tablet 600 mg PO BID fluticasone propionate 50 mcg/actuation [place],Suspension 2 spray INTRANASAL BID Rx Instructions: administer into each nostril magnesium 200 mg Tablet 400 mg PO BEDTIME cholecalciferol (vitamin D3) [Vitamin D3] 50 mcg (2,000 unit) Tablet 50 mcg PO BEDTIME Systane (PF) 0.4-0.3 % [place] 1 drp OPHTHALMIC (EYE) BID Rx Instructions: instill 1 drop into both eyes levothyroxine 25 mcg tablet 25 mcg PO DAILY@0600 fluticasone propion-salmeterol [Wixela Inhub] 500-50 mcg/dose blister with device 1 inh inhalation Q12H acetaminophen 325 mg Tablet 650 mg PO Q6H PRN (Reason: Pain) ascorbic acid (vitamin C) 500 mg Tablet 500 mg PO TUTHSA ipratropium-albuterol 0.5 mg-3 mg(2.5 mg base)/3 mL solution for nebulization 3 ml inhalation TID ferrous sulfate 324 mg (65 mg iron) tablet,delayed release (DR/EC) 324 mg PO TUTHSA amlodipine 5 mg tablet 5 mg PO DAILY albuterol sulfate 90 mcg/actuation HFA aerosol inhaler 2 puff inhalation QID PRN (Reason: Shortness Of Breath Or Wheezing) Qty: 8.5 2RF Discontinued nitrofurantoin monohyd/m-cryst [Macrobid] 100 mg capsule 100 mg PO Q12H 7 Days Qty: 14 0RF Rx Instructions: must administer with a meal/food Discharge Orders: Discharge Order (Routine); Ordered 03/21/23 Ordered By: Simon Pascual Diet: Low salt diet Activity on Discharge: As tolerated Stand Alone Forms: Patient Portal Discharge page Care Plan Goals: Full recovery from respiratory failure Health Concerns: heart failure pneumonia copd Plan of Treatment: Take Doxycycline as recommended and follow up with your Doctor in a week take prednisone for 20 mg daily for 3 days for copd Assessment: as above Discharge Date/Time: 03/21/23 16:27
[2023-03-21] MEDS: Fluticasone Propionate Nasal 16 GM SPRAY 2 SPRAY NOSTRIL-B (09:05)
[2023-03-21] MEDS: amLODIPine Besylate 2.5 MG TABLET PO (09:05)
[2023-03-21] MEDS: Ferrous Sulfate 324 MG TABLET.DR PO (09:05)
[2023-03-21] MEDS: Propylene Glycol/PEG 400 Gel Eye Drops 10ML 1 DROP EYE-BOTH (09:05)
[2023-03-21] MEDS: Apixaban 5 MG TABLET PO (09:05)
[2023-03-21] MEDS: Furosemide 20 MG TABLET PO (09:05)
[2023-03-21] MEDS: Ascorbic Acid 500 MG TABLET PO (09:06)
[2023-03-21] MEDS: methylPREDNISolone Sod Succ 40 MG/ML VIAL IVPUSH (09:06)
[2023-03-21] MEDS: Doxycycline Monohydrate 100 MG CAPSULE PO (09:06)
[2023-03-21] MEDS: 0.9 % Sodium Chloride Flush 3 ML SYRINGE IVFLUSH (09:06)
--- NOTE | 2023-03-21 10:30 | MHC.CM.PN ---
Per ROUNDS discussion, Patient is medically cleared for dc to SNF/STR today. [facility] met with Patient and her , who have accepted [facility] bed offer and [facility] has asked [facility] to initiate the auth process with [facility]. CM will follow.
--- NOTE | 2023-03-21 10:44 | HO.PM.IMPN ---
Subjective Subjective Date of Service: 03/21/23 Interval History: overall feeling better Physical Exam Vital Signs: Vital Signs: Last Vital Signs Temp 98.0 F 03/21/23 07:39 Pulse 74 03/21/23 07:39 Resp 16 03/21/23 07:39 BP 144/82 H 03/21/23 07:39 Pulse Ox 88 L 03/21/23 10:22 O2 Del Method Nasal Cannula 03/21/23 07:39 O2 Flow Rate 3 03/21/23 07:39 FiO2 37.3 03/20/23 07:01 Oxygen Flow Rate 15 03/15/23 13:57 BMI result Body Mass Index 25.1 Objective Data Active Medications Acetaminophen (Acetaminophen 325 Mg Tablet) 650 mg PO Q6H PRN PRN Reason: Pain, Mild (Pain Scale 1-3) Last Admin: 03/21/23 05:11 Dose: 650 mg Documented By: ISABELL Albuterol Sulfate (Albuterol Sulfate 90 Mcg 8 Gm Inhaler) 2 puff INHALE QID PRN PRN Reason: Shortness Of Breath Or Wheezing Albuterol/Ipratropium (Albuterol/Iprat 2.5/0.5mg 3 Ml Ampul.Neb) 3 ml INHALE RQ4H WHILE AWAKE [facility] Last Admin: 03/21/23 00:39 Dose: 3 ml Documented By: JASMINA Albuterol/Ipratropium (Albuterol/Iprat 2.5/0.5mg 3 Ml Ampul.Neb) 3 ml INHALE Q3H PRN PRN Reason: sob Last Admin: 03/21/23 07:36 Dose: 3 ml Documented By: DALIA Amlodipine Besylate (Amlodipine Besylate 2.5 Mg Tablet) 2.5 mg PO DAILY [facility]; Protocol Last Admin: 03/21/23 09:05 Dose: 2.5 mg Documented By: DENISE Apixaban (Apixaban 5 Mg Tablet) 5 mg PO BID [facility] Last Admin: 03/21/23 09:05 Dose: 5 mg Documented By: DENISE Ascorbic Acid (Ascorbic Acid 500 Mg Tablet) 500 mg PO TuThSa@0900 [facility] Last Admin: 03/21/23 09:06 Dose: 500 mg Documented By: DENISE Calcium Carbonate (Calcium Carbonate 500 Mg Tablet) 500 mg PO BID [facility] Last Admin: 03/21/23 09:05 Dose: 500 mg Documented By: DENISE Docusate Sodium (Docusate Sodium 100 Mg Capsule) 100 mg PO DAILY PRN PRN Reason: Constipation Doxycycline Monohydrate (Doxycycline Monohydrate 100 Mg Capsule) 100 mg PO Q12H [facility] Last Admin: 03/21/23 09:06 Dose: 100 mg Documented By: DENISE Ferrous Sulfate (Ferrous Sulfate 324 Mg Tablet.) 324 mg PO TuThSa@0900 [facility] Last Admin: 03/21/23 09:05 Dose: 324 mg Documented By: DENISE Fluticasone Propionate (Fluticasone Propionate Nasal 16 Gm [place]) 2 spray NOSTRIL-B BID [facility] Last Admin: 03/21/23 09:05 Dose: 2 spray Documented By: DENISE Fluticasone/Vilanterol (Fluticasone/Vilanterol 200/25 Blst.W.Dev) 1 puff INHALE RDAILY [facility] Last Admin: 03/21/23 07:36 Dose: 1 puff Documented By: DALIA Furosemide (Furosemide 20 Mg Tablet) 20 mg PO DAILY [facility]; Protocol Last Admin: 03/21/23 09:05 Dose: 20 mg Documented By: DENISE Guaifenesin (Guaifenesin [place] 600 Mg Tab.Er.12h) 600 mg PO BID PRN PRN Reason: cough Last Admin: 03/20/23 21:53 Dose: 600 mg Documented By: ISABELL Levothyroxine Sodium (Levothyroxine Sodium 25 Mcg Tablet) 25 mcg PO DAILY@0600 [facility] Last Admin: 03/21/23 05:11 Dose: 25 mcg Documented By: ISABELL Magnesium Oxide (Magnesium Oxide 400 Mg Tablet) 400 mg PO BEDTIME [facility] Last Admin: 03/20/23 21:53 Dose: 400 mg Documented By: ISABELL Methylprednisolone Sodium Succinate (Methylprednisolone Sod Succ 40 Mg/Ml Vial) 40 mg IVPUSH DAILY [facility] Last Admin: 03/21/23 09:06 Dose: 40 mg Documented By: DENISE Omeprazole (Omeprazole 20 Mg Capsule.) 20 mg PO DAILY@0630 [facility] Last Admin: 03/21/23 05:11 Dose: 20 mg Documented By: ISABELL Ondansetron HCl (Ondansetron Hcl 4 Mg/2 Ml Vial) 4 mg IVPUSH Q8H PRN PRN Reason: Nausea and Vomiting Polyethyl Glycol/Propylene Glycol (Propylene Glycol/Peg 400 Gel Eye Drops 10ml) 1 drop EYE-BOTH BID [facility] Last Admin: 03/21/23 09:05 Dose: 1 drop Documented By: DENISE Pravastatin Sodium (Pravastatin Sodium 20 Mg Tablet) 20 mg PO BEDTIME [facility] Last Admin: 03/20/23 21:52 Dose: 20 mg Documented By: ISABELL Sodium Chloride (0.9 % Sodium Chloride Flush 3 Ml Syringe) 3 ml IVFLUSH QSHIFT [facility] Last Admin: 03/21/23 09:06 Dose: 3 ml Documented By: DENISE Sodium Chloride (Sodium Chloride 0.65 % Nasal 44 Ml Sprbtl) 1 spray NOSTRIL-B Q1H PRN PRN Reason: Congestion Last Admin: 03/19/23 14:38 Dose: 1 spray Documented By: DENISE Vitamin D (Cholecalciferol (Vitamin D3) 25 Mcg Tablet) 50 mcg PO BEDTIME [facility] Last Admin: 03/20/23 21:53 Dose: 50 mcg Documented By: ISABELL Labs 03/16/23 06:45 03/19/23 16:34 Microbiology Microbiology Results: Microbiology 03/15/23 12:42 Blood Culture - Final Blood - Venous No growth after 5 days. 03/15/23 12:19 Blood Culture - Final Blood - Venous No growth after 5 days. Assessment and Plan (1) Pneumonitis: Status: Acute (2) Community acquired bacterial pneumonia: Status: Acute Plan 77-year-old female with a PMH significant for?persistent AFib on Eliquis, pulmonary hypertension, HFpEF, cardiomyopathy, COPD with chronic hypoxic respiratory failure on 2L home O2, HTN, HLD, hx of Meniere's disease, JEIMY, and sick sinus syndrome with pacemaker in place who presents to the ED with?worsening SOB, cough, and fatigue for the past few days. Pt will be admitted to the hospital for acute on chronic hypoxic respiratory failure in the setting of pneumonia. Acute on chronic hypoxic respiratory failure d/t copd, heart failure and PNA.. Overall much improved, transition to oral Doxy, continue bronchodilators, reduce sterod,. Sepsis-resolved. Ceftriaxone and Azithrom from 03/15 acute Lactic acidosis, resolved Elevated troponin--flat, no acute ischemia UTI--completed Abx course AFib Continue Eliquis HTN--continue meds Hypothyroidism Continue levothyroxine HLD Continue statin DVT Prophylaxis: On eliquis Discharge if rehab available Time Spent With Patient Time: Total time managing care of this patient today ____ minutes. Quality Stroke Does the patient have a stroke diagnosis?: No VTE Prior VTE?: No VTE Risk Level:: Medical - moderate - high VTE Device Contraindication: Treatment Not Indicated VTE Drug Contraindication: N/A - Med Ordered
--- NOTE | 2023-03-21 13:41 | MHC.CM.PN ---
Patient has been medically cleared for dc to SNF/STR today. Patient will dc to her agreed upon SNF/[facility] today at 2:30 PM, via [facility]. IMM addressed earlier today and Patient received the original and a copy has been placed on the chart.CM left a detailed message for Patient's /HCP/Claudine @ [phone], informing her of the dc plan.
[2023-03-22 17:18] LABS: Strep Pneumo Ag urine Not Detected (Not Detected)
[2023-03-23 06:03] LABS: Legionella Ag Urine Not Detected (Not Detected)
== END 2023-03-21 16:27 | disposition skilled nursing facility (03) | DRG 871 ==
LOC: HO.ED 14:03 → HO.EDOVER 15:24 → HO.IMC 16:51
PROVIDERS: Internal Medicine Cardiovascular Disease; Physician Assistant; Admitting Provider Student in an Organized Health Care Education/Training Program; Emergency Provider Emergency Medicine; PCP Internal Medicine; Visit Provider Internal Medicine
PROC: 02H63JZ Insertion of Pacemaker Lead into Right Atrium, Percutaneous Approach (ICD-10-PCS; principal; 2023-03-17 13:00)
DX: A41.9 Sepsis, unspecified organism (principal); I50.33 Acute on chronic diastolic (congestive) heart failure; J96.21 Acute and chronic respiratory failure with hypoxia; J15.9 Unspecified bacterial pneumonia; J44.0 Chronic obstructive pulmonary disease with (acute) lower respiratory infection; J44.1 Chronic obstructive pulmonary disease with (acute) exacerbation; N39.0 Urinary tract infection, site not specified; I42.8 Other cardiomyopathies; I48.19 Other persistent atrial fibrillation; E87.21 Acute metabolic acidosis; I24.8 Other forms of acute ischemic heart disease; I08.1 Rheumatic disorders of both mitral and tricuspid valves; I27.20 Pulmonary hypertension, unspecified; I49.5 Sick sinus syndrome; G47.33 Obstructive sleep apnea (adult) (pediatric); E03.9 Hypothyroidism, unspecified; I11.0 Hypertensive heart disease with heart failure; R31.9 Hematuria, unspecified; Z79.01 Long term (current) use of anticoagulants; Z79.51 Long term (current) use of inhaled steroids; Z79.890 Hormone replacement therapy; Z79.899 Other long term (current) drug therapy
CPT/HCPCS: 0241U; 36415; 71045; 71250; 80048; 80053; 81001; 82803; 83605; 83690; 83735; 83880; 84145; 84484; 85025; 85027; 85610; 85652; 85730; 87040; 87086; 87449; 87899; 93005; 93306; 94640; 97116; 97162; 99285; C1758; C1785; C1898; J0131; J0456; J0690; J0696; J1940; J2920; Q9957; Q9965

== ENCOUNTER 2023-03-15 15:13 | Outpatient (BNV) | payer MEDICARE, SELFPAY ==
[2022-12-20 14:49] VITALS: BP 118/60; BMI 25.0
[2023-01-12 10:19] VITALS: BP 90/52; BP 92/48
== END 2023-03-17 07:00 ==
PROVIDERS: Admitting Provider Student in an Organized Health Care Education/Training Program; Emergency Provider Emergency Medicine; PCP Internal Medicine; Visit Provider Internal Medicine
DX: I34.0 Nonrheumatic mitral (valve) insufficiency (principal); I36.1 Nonrheumatic tricuspid (valve) insufficiency
CPT/HCPCS: 93306

== ENCOUNTER → 2023-03-15 15:13 | Outpatient (BNV) | payer MEDICARE, SELFPAY ==
[2022-12-20 14:49] VITALS: BP 118/60; BMI 25.0
[2023-01-12 10:19] VITALS: BP 90/52; BP 92/48
== END ==
PROVIDERS: Admitting Provider Student in an Organized Health Care Education/Training Program; Emergency Provider Emergency Medicine; PCP Internal Medicine; Visit Provider Internal Medicine Cardiovascular Disease
DX: J96.01 Acute respiratory failure with hypoxia (principal)
CPT/HCPCS: 33214; 99291

== ENCOUNTER → 2023-03-15 15:13 | Outpatient (BNV) | payer MEDICARE, SELFPAY ==
[2022-12-20 14:49] VITALS: BP 118/60; BMI 25.0
[2023-01-12 10:19] VITALS: BP 90/52; BP 92/48
== END ==
PROVIDERS: Admitting Provider Student in an Organized Health Care Education/Training Program; Emergency Provider Emergency Medicine; PCP Internal Medicine; Visit Provider Student in an Organized Health Care Education/Training Program
DX: J96.01 Acute respiratory failure with hypoxia (principal); J44.9 Chronic obstructive pulmonary disease, unspecified; J18.9 Pneumonia, unspecified organism
CPT/HCPCS: 99223; 99232; 99233; 99239

== ENCOUNTER → 2023-03-15 15:13 | Outpatient (BNV) | payer MEDICARE, SELFPAY ==
[2022-12-20 14:49] VITALS: BP 118/60; BMI 25.0
[2023-01-12 10:19] VITALS: BP 90/52; BP 92/48
== END ==
PROVIDERS: Admitting Provider Student in an Organized Health Care Education/Training Program; Emergency Provider Emergency Medicine; PCP Internal Medicine; Visit Provider Internal Medicine
DX: J18.9 Pneumonia, unspecified organism (principal); R09.02 Hypoxemia; J44.9 Chronic obstructive pulmonary disease, unspecified
CPT/HCPCS: 99222

== ENCOUNTER 2023-03-22 05:59 | Outpatient (REF) | payer MEDICARE, SELFPAY ==
[2022-12-20 14:49] VITALS: BP 118/60; BMI 25.0
[2023-01-12 10:19] VITALS: BP 90/52; BP 92/48
[2023-03-22 06:01] LABS: MANUAL DIFF FLAG NO
[2023-03-22 06:12] LABS: Basophils Percent Auto 0.1 % (0-2); Eosinophils Percent Auto 0.1 % (0-4); Hematocrit 34.2 % (37.0-47.0); Lymphocytes Absolute Auto 1.2 X10*3/uL (1.2-4.9); Lymphocytes Percent Auto 12.1 % (20-40); Mean Corpuscular HGB Conc 32.2 g/dl (31.0-35.0); Mean Corpuscular Hemoglobin 29.8 pg (27.0-33.0); Mean Corpuscular Volume 92.7 fL (80.0-98.0); Mean Platelet Volume 9.5 fL (9.4-12.3); Monocytes Absolute Auto 0.9 X10*3/uL (0.1-1.2); Monocytes Percent Auto 8.7 % (2-11); Neutrophils Absolute Auto 7.6 x10*3/uL (2.0-8.3); Platelet Count 304 X10*3/uL (160-400); Red Blood Count 3.69 X10*6/uL (4.20-5.50); Red Cell Distribution Width 15.3 % (11.0-16.0); White Blood Count 9.8 X10*3/uL (4.8-10.8)
[2023-03-22 06:26] LABS: Alanine Aminotransferase 47 U/L (0-31); Alkaline Phosphatase 45 U/L (39-117); Anion Gap 10 (12-20); Aspartate Amino Transferase 26 U/L (5-31); Bilirubin Total 0.4 mg/dL (0.0-1.0); Blood Urea Nitrogen 16 mg/dL (9-16); Calcium 8.7 mg/dL (8.4-10.2); Carbon Dioxide 30 mmol/L (22-29); Chloride 101 mmol/L (96-108); Estimated Glomerular Filt Rate > 60; Glucose Random 83 mg/dL (60-115); Sodium 138 mmol/L (135-145); Total Protein 5.2 g/dL (6.5-8.0)
== END 2023-03-22 06:00 | disposition home or self-care (01) ==
LOC: HO.MMNH1L 05:59
PROVIDERS: Visit Provider Family Medicine
DX: I10 Essential (primary) hypertension (principal); I48.91 Unspecified atrial fibrillation; J44.9 Chronic obstructive pulmonary disease, unspecified
CPT/HCPCS: 36415; 80053; 85025

== ENCOUNTER 2023-03-28 06:34 | Outpatient (REF) | payer MEDICARE, SELFPAY ==
[2022-12-20 14:49] VITALS: BP 118/60; BMI 25.0
[2023-01-12 10:19] VITALS: BP 90/52; BP 92/48
[2023-03-28 06:31] LABS: MANUAL DIFF FLAG NO
[2023-03-28 07:29] LABS: Basophils Percent Auto 0.1 % (0-2); Eosinophils Percent Auto 0.4 % (0-4); Hematocrit 34.3 % (37.0-47.0); Imm Gran Abs Auto 0.04 X10*3/uL (0.00-0.03); Imm Gran Pct Auto 0.4 % (0.0-0.4); Lymphocytes Absolute Auto 1.5 X10*3/uL (1.2-4.9); Lymphocytes Percent Auto 14.7 % (20-40); Mean Corpuscular HGB Conc 32.1 g/dl (31.0-35.0); Mean Corpuscular Hemoglobin 30.2 pg (27.0-33.0); Mean Corpuscular Volume 94.2 fL (80.0-98.0); Mean Platelet Volume 9.7 fL (9.4-12.3); Monocytes Absolute Auto 0.8 X10*3/uL (0.1-1.2); Monocytes Percent Auto 7.3 % (2-11); Neutrophils Absolute Auto 7.9 x10*3/uL (2.0-8.3); Neutrophils Percent Auto 77.1 % (45-73); Platelet Count 312 X10*3/uL (160-400); Red Blood Count 3.64 X10*6/uL (4.20-5.50); Red Cell Distribution Width 16.3 % (11.0-16.0); White Blood Count 10.3 X10*3/uL (4.8-10.8)
[2023-03-28 07:57] LABS: Anion Gap 13 (12-20); Blood Urea Nitrogen 10 mg/dL (9-16); Calcium 9.1 mg/dL (8.4-10.2); Carbon Dioxide 25 mmol/L (22-29); Chloride 101 mmol/L (96-108); Estimated Glomerular Filt Rate > 60; Glucose Random 65 mg/dL (60-115); Potassium 3.2 mmol/L (3.3-5.1); Sodium 136 mmol/L (135-145)
== END 2023-03-28 06:35 | disposition home or self-care (01) ==
LOC: HO.MMNH1L 06:34
PROVIDERS: Visit Provider Family Medicine
DX: I10 Essential (primary) hypertension (principal); I48.91 Unspecified atrial fibrillation; J44.9 Chronic obstructive pulmonary disease, unspecified
CPT/HCPCS: 36415; 80048; 85025

== ENCOUNTER 2023-04-03 05:56 | Outpatient (REF) | payer MEDICARE, SELFPAY ==
[2022-12-20 14:49] VITALS: BP 118/60; BMI 25.0
[2023-01-12 10:19] VITALS: BP 90/52; BP 92/48
[2023-04-03 05:51] LABS: MANUAL DIFF FLAG NO
[2023-04-03 06:52] LABS: Basophils Percent Auto 0.4 % (0-2); Eosinophils Absolute Auto 0.1 X10*3/uL (0.0-0.4); Eosinophils Percent Auto 1.8 % (0-4); Hemoglobin 10.6 g/dl (12.0-16.0); Imm Gran Abs Auto 0.01 X10*3/uL (0.00-0.03); Imm Gran Pct Auto 0.2 % (0.0-0.4); Lymphocytes Absolute Auto 0.8 X10*3/uL (1.2-4.9); Lymphocytes Percent Auto 14.6 % (20-40); Mean Corpuscular HGB Conc 33.1 g/dl (31.0-35.0); Mean Corpuscular Volume 90.7 fL (80.0-98.0); Mean Platelet Volume 9.6 fL (9.4-12.3); Monocytes Absolute Auto 0.3 X10*3/uL (0.1-1.2); Neutrophils Absolute Auto 4.3 x10*3/uL (2.0-8.3); Platelet Count 252 X10*3/uL (160-400); Red Blood Count 3.53 X10*6/uL (4.20-5.50); Red Cell Distribution Width 15.7 % (11.0-16.0); White Blood Count 5.5 X10*3/uL (4.8-10.8)
[2023-04-03 07:04] LABS: Anion Gap 13 (12-20); Blood Urea Nitrogen 11 mg/dL (9-16); Carbon Dioxide 23 mmol/L (22-29); Chloride 101 mmol/L (96-108); Estimated Glomerular Filt Rate > 60; Glucose Random 77 mg/dL (60-115); Potassium 3.6 mmol/L (3.3-5.1); Sodium 133 mmol/L (135-145)
== END 2023-04-03 05:57 | disposition home or self-care (01) ==
LOC: HO.MMNH1L 05:56
PROVIDERS: Visit Provider Family Medicine
DX: I10 Essential (primary) hypertension (principal); J44.9 Chronic obstructive pulmonary disease, unspecified; I48.91 Unspecified atrial fibrillation
CPT/HCPCS: 36415; 80048; 85025

== ENCOUNTER 2023-04-18 09:51 | Outpatient (REF) | payer MEDICARE, SELFPAY ==
[2022-12-20 14:49] VITALS: BP 118/60; BMI 25.0
[2023-01-12 10:19] VITALS: BP 90/52; BP 92/48
[2023-04-18 13:02] LABS: MANUAL DIFF FLAG NO
[2023-04-18 13:12] LABS: Basophils Percent Auto 0.5 % (0-2); Eosinophils Absolute Auto 0.1 X10*3/uL (0.0-0.4); Eosinophils Percent Auto 1.1 % (0-4); Hematocrit 36.7 % (37.0-47.0); Hemoglobin 11.8 g/dl (12.0-16.0); Imm Gran Abs Auto 0.02 X10*3/uL (0.00-0.03); Imm Gran Pct Auto 0.3 % (0.0-0.4); Lymphocytes Absolute Auto 0.9 X10*3/uL (1.2-4.9); Lymphocytes Percent Auto 11.8 % (20-40); Mean Corpuscular HGB Conc 32.2 g/dl (31.0-35.0); Mean Corpuscular Hemoglobin 29.6 pg (27.0-33.0); Mean Corpuscular Volume 92.2 fL (80.0-98.0); Monocytes Absolute Auto 0.7 X10*3/uL (0.1-1.2); Monocytes Percent Auto 8.8 % (2-11); Neutrophils Absolute Auto 5.8 x10*3/uL (2.0-8.3); Neutrophils Percent Auto 77.5 % (45-73); Platelet Count 388 X10*3/uL (160-400); Red Blood Count 3.98 X10*6/uL (4.20-5.50); Red Cell Distribution Width 16.9 % (11.0-16.0); White Blood Count 7.5 X10*3/uL (4.8-10.8)
[2023-04-18 13:25] LABS: Alanine Aminotransferase 10 U/L (0-31); Albumin Level 3.8 g/dL (3.5-5.0); Alkaline Phosphatase 69 U/L (39-117); Anion Gap 16 (12-20); Aspartate Amino Transferase 23 U/L (5-31); Bilirubin Total 0.8 mg/dL (0.0-1.0); Blood Urea Nitrogen 9 mg/dL (9-16); Calcium 9.5 mg/dL (8.4-10.2); Carbon Dioxide 21 mmol/L (22-29); Chloride 102 mmol/L (96-108); Estimated Glomerular Filt Rate > 60; Glucose Random 96 mg/dL (60-115); Potassium 3.6 mmol/L (3.3-5.1); Sodium 135 mmol/L (135-145); Total Protein 7.2 g/dL (6.5-8.0)
== END 2023-04-18 09:52 | disposition home or self-care (01) ==
LOC: HO.HMGCLDS 09:51
PROVIDERS: PCP Internal Medicine; Visit Provider Internal Medicine
DX: J44.9 Chronic obstructive pulmonary disease, unspecified (principal); I42.9 Cardiomyopathy, unspecified; D64.9 Anemia, unspecified
CPT/HCPCS: 36415; 80053; 85025

== ENCOUNTER 2023-04-20 11:58 | Outpatient (AMB) | payer MEDICARE, SELFPAY ==
[2022-12-20 14:49] VITALS: BP 118/60; BMI 25.0
[2023-01-12 10:19] VITALS: BP 90/52; BP 92/48
--- NOTE | 2023-04-20 12:05 | MHC.PC.OV ---
Vital Signs 04/20/23 12:08 Height 5 ft Weight 117 lb BMI 22.8 BP 108/62 Blood Pressure Location Lt brachial Position Sitting Pulse 90 Pulse Source Pulse Oximeter Pulse Oximetry (%) 92 Oxygen Delivery Method Nasal Cannula Intake Visit Reasons: 1 month follow up Allergies gemifloxacin Allergy (Unknown, Verified 04/20/23 12:11) Rash montelukast [Singulair] Allergy (Unknown, Verified 04/20/23 12:11) mood swings Medication List - Last Reconciled 04/20/23 by Freida Yarbrough MD acetaminophen 650 mg PO Q6H PRN albuterol sulfate 90 mcg/actuation 2 puffs inhalation QID PRN amlodipine 5 mg PO DAILY apixaban (Eliquis) 5 mg PO BID ascorbic acid (vitamin C) 500 mg PO TUTHSA calcium carbonate (Calcium) 600 mg PO BID cholecalciferol (vitamin D3) (Vitamin D3) 50 mcg PO BEDTIME cyanocobalamin (vitamin B-12) 500 mcg sublingual DAILY ferrous sulfate 324 mg PO TUTHSA fluticasone propion-salmeterol 500-50 mcg/dose (Wixela Inhub) 1 inh inhalation Q12H fluticasone propionate 50 mcg/actuation 2 sprays intranasal BID furosemide 20 mg PO BID ipratropium-albuterol 0.5 mg-3 mg(2.5 mg base)/3 mL 3 mL inhalation TID levothyroxine 25 mcg PO DAILY@0600 magnesium 400 mg PO BEDTIME multivitamin (Daily Multi-Vitamin tablet) 1 tab PO DAILY peg 400-propylene glycol (PF) 0.4-0.3 % (Systane (PF)) 1 drp ophthalmic (eye) BID pravastatin 20 mg PO BEDTIME Tobacco use date assessed: 04/20/23 Fall risk assessment: No Falls in past year Last assessed Fall Risk: 04/20/23 Dental Screening Dental Screen Date: 04/20/23 Did you have a dental visit in the last 12 months?: No Did you have a dental problem in the last 6 months where you did not have access to dental care?: No Was dental information given to patient?: No HPI 1 month follow up HPI Details Pt presents for f/u hospitalization for pneumonia, COPD, paroxysmal AFib. Patient spent 2 weeks in the inpatient rehab and was discharged home this week. She is slowly recovering but still complains of some general fatigue and intermittent wheezing but no coughing fever chills PND orthopnea . patient has been using supplemental O2 2-3 L. [facility] Medical History COPD (chronic obstructive pulmonary disease) CHF (congestive heart failure) Chronic anticoagulation PAF (paroxysmal atrial fibrillation) Renal failure Cardiac pacemaker in situ Rhabdomyolysis Pneumonia Hyponatremia Hyperlipemia HTN (hypertension) Osteoporosis SSS (sick sinus syndrome) Meniere disease Sleep apnea Surgical History History of permanent cardiac pacemaker placement History of endoscopy History of hysterectomy History of cardiac cath Family History Father Lung cancer Mother COPD (chronic obstructive pulmonary disease) Social History Household Members: Spouse Housing: House Do you presently have visiting nurse or other home services: Yes (VNA and OT) Alcohol intake: never Patient Tobacco Use Status: Former Tobacco user Quit Date: 1989 Smoked: 30 +/- e-Cigarette/Vaping Use: Never Used Second Hand Smoke Exposure: No Advance Directives Date on File: 02/06/23 service: No Current occupational status: retired Cognitive needs: No Hearing needs: Yes Vision needs: Yes Questionnaire Thrive Questionnaire Date Thrive assessed: 03/16/23 YUDELKA-7 AMB Questionnaire YUDELKA-7 Date YUDELKA - 7 assessed: 12/29/22 Source: Developed by Drs. Jerry Munoz, Karishma Melgar, Joaquin Ariza and colleagues, with an educational gaby from [employer]. Review of Systems Const All systems reviewed & are unremarkable except as noted in HPI and below Reports no additional complaints Eyes Reports no additional complaints ENT Reports no additional complaints Card Reports no additional complaints Resp Reports no additional complaints Reports no additional complaints Physical exam (Primary Care) Vital Signs: Last Vital Signs Pulse 90 04/20/23 12:08 BP 108/62 04/20/23 12:08 Pulse Ox 84 L 04/20/23 12:08 Oxygen Delivery Method Nasal Cannula 04/20/23 12:08 BMI result Body Mass Index 22.8 Tobacco/Smoking Status: Tobacco use Status Tobacco use date assessed 04/20/23 04/20/23 12:16 Patient Tobacco Use Status Former Tobacco user 04/20/23 12:07 e-Cigarette/Vaping Use Never Used 04/20/23 12:07 Thrive Assessment: Date of Thrive Assessment Date Thrive assessed 03/16/23 04/20/23 12:07 Const General: no acute distress HENMT Face and sinus: Yes normal facial exam Resp Effort & Inspection: normal respiratory effort Auscultation: rales on the left (base) and diminished lung sounds Cardio Rhythm: regular rhythm Heart sounds: S1 normal heart sound present and S2 normal heart sound present GI Inspection: Yes normal to inspection Extrem Other: 2+ pitting edema josué Assessment and Plan Assessment & Plan (1) Pneumonitis: Code(s): J18.9 - Pneumonia, unspecified organism Plan: CHECK CHEST X-RAY (2) SSS (sick sinus syndrome): Comment: s/p replaced pacemaker 04/15 Code(s): I49.5 - Sick sinus syndrome (3) CHF (congestive heart failure): Comment: echo 08/2019 PVC nl EF, pulmonary hypertension, repeat Echo 07/14 EF 25%, global hypokinesis, negative cardiac cath 07/14, 03/15 LVEF 50% [facility] [place] Code(s): I50.9 - Heart failure, unspecified Plan: Patient was advised to continue 40 mg of furosemide eat banana every day and check electrolytes before next visit (4) Dysuria: Code(s): R30.0 - Dysuria Plan: Check urine culture and will try low-dose of topical Estrodiol cream twice a week (5) COPD (chronic obstructive pulmonary disease): Comment: O2 dependent, Dr. Rhoades Code(s): J44.9 - Chronic obstructive pulmonary disease, unspecified Plan: Continue current treatment Orders: Orders XR chest 1V Today I50.9 - Heart failure, unspecified, J18.9 - Pneumonia, unspecified organism B Type Natriuretic Peptide 1 Month I49.5 - Sick sinus syndrome, I50.9 - Heart failure, unspecified, J44.9 - Chronic obstructive pulmonary disease, unspecified Urine Culture Today R30.0 - Dysuria Comprehensive Met. Panel 1 Month I49.5 - Sick sinus syndrome, I50.9 - Heart failure, unspecified, J44.9 - Chronic obstructive pulmonary disease, unspecified Complete Blood Count Auto Diff 1 Month I49.5 - Sick sinus syndrome, I50.9 - Heart failure, unspecified, J44.9 - Chronic obstructive pulmonary disease, unspecified IRON PROFILE 1 Month I49.5 - Sick sinus syndrome, I50.9 - Heart failure, unspecified, J44.9 - Chronic obstructive pulmonary disease, unspecified Vitamin B12 1 Month I49.5 - Sick sinus syndrome, I50.9 - Heart failure, unspecified, J44.9 - Chronic obstructive pulmonary disease, unspecified Medications: New omeprazole 20 mg PO DAILY 90 caps 2RF cetirizine (Zyrtec) 10 mg PO DAILY 90 tabs 1RF estradiol 0.01%(0.1mg/gram) 1 g vaginal 2XW 42.5 grams 1RF Changed From ascorbic acid (vitamin C) 500 mg PO TUTHSA To ascorbic acid (vitamin C) 500 mg PO DAILY 90 tabs 2RF Coding Level of Care Code Est Pt Level 4 (82345) Diagnoses Pneumonitis J18.9 SSS (sick sinus syndrome) I49.5 CHF (congestive heart failure) I50.9 Dysuria R30.0 COPD (chronic obstructive pulmonary disease) J44.9
[2023-04-20 12:08] VITALS: BP 108/62; PULSE 90; O2SAT 92; BMI 22.8
== END 2023-04-20 13:20 | disposition home or self-care (01) ==
PROVIDERS: PCP Internal Medicine; Visit Provider Internal Medicine
DX: J18.9 Pneumonia, unspecified organism (principal); I49.5 Sick sinus syndrome; I50.9 Heart failure, unspecified; J44.9 Chronic obstructive pulmonary disease, unspecified
CPT/HCPCS: 99214

== ENCOUNTER 2023-04-25 11:11 | Outpatient (REF) | payer MEDICARE, SELFPAY ==
[2022-12-20 14:49] VITALS: BP 118/60; BMI 25.0
[2023-01-12 10:19] VITALS: BP 90/52; BP 92/48
--- NOTE | ~2023-04-25 | XR_ITS ---
EXAMINATION: XR CHEST CLINICAL INFORMATION: Pneumonia COMPARISON: Previous chest x-ray most recent February 2023 TECHNIQUE: Frontal view of the chest was obtained. FINDINGS: The cardiac silhouette is enlarged but stable. There is a left subclavian dual chamber pacemaker unchanged in position. There may be pulmonary venous redistribution. The lungs are otherwise clear. No pleural effusion or pneumothorax. Degenerative changes of the thoracic spine. XR/XR chest 1V IMPRESSION: No evidence of pneumonia. Stable enlargement of the cardiac silhouette and question pulmonary venous redistribution.
== END 2023-04-25 11:12 | disposition home or self-care (01) ==
LOC: HO.XRAY 11:11
PROVIDERS: PCP Internal Medicine; Visit Provider Internal Medicine
DX: J18.9 Pneumonia, unspecified organism (principal); I50.9 Heart failure, unspecified
CPT/HCPCS: 71045

== ENCOUNTER 2023-05-15 08:35 | Outpatient (AMB) | payer MEDICARE, SELFPAY ==
[2022-12-20 14:49] VITALS: BP 118/60; BMI 25.0
[2023-04-25 12:31] VITALS: BP 118/60; BP 90/52; BP 92/48; BMI 25.0
--- NOTE | 2023-05-15 09:17 | MHC.OFFVIS ---
Intake Vital Signs 05/15/23 09:34 Height 5 ft Weight 119 lb 0.794 oz BMI 23.2 BP 122/72 Blood Pressure Location Lt brachial Position Sitting Pulse 83 Intake Visit Reasons: 4 month follow up Intake Note: 4 month follow up Psych Social Worker Required: No Accompanied by: Family/Other Allergies gemifloxacin Allergy (Unknown, Verified 05/15/23 09:40) Rash montelukast [Singulair] Allergy (Unknown, Verified 05/15/23 09:40) mood swings Medication List - Last Reconciled 05/15/23 by Sunil Coto MD acetaminophen 650 mg PO Q6H PRN albuterol sulfate 90 mcg/actuation 2 puffs inhalation QID PRN amlodipine 5 mg PO DAILY apixaban (Eliquis) 5 mg PO BID ascorbic acid (vitamin C) 500 mg PO DAILY calcium carbonate (Calcium) 600 mg PO BID cetirizine (Zyrtec) 10 mg PO DAILY cholecalciferol (vitamin D3) (Vitamin D3) 50 mcg PO BEDTIME cyanocobalamin (vitamin B-12) 500 mcg sublingual DAILY estradiol 0.01%(0.1mg/gram) 1 g vaginal 2XW ferrous sulfate 324 mg PO TUTHSA fluticasone propion-salmeterol 500-50 mcg/dose (Wixela Inhub) 1 inh inhalation Q12H fluticasone propionate 50 mcg/actuation 2 sprays intranasal BID furosemide 20 mg PO BID ipratropium-albuterol 0.5 mg-3 mg(2.5 mg base)/3 mL 3 mL inhalation TID levothyroxine 25 mcg PO DAILY@0600 magnesium 400 mg PO BEDTIME multivitamin (Daily Multi-Vitamin tablet) 1 tab PO DAILY omeprazole 20 mg PO DAILY peg 400-propylene glycol (PF) 0.4-0.3 % (Systane (PF)) 1 drp ophthalmic (eye) BID pravastatin 20 mg PO BEDTIME HPI HPI Comments History of Present Illness Details Pleasant 78-year-old female who is here for follow-up. She was seen in the hospital which presented with influenza a, COPD exacerbation and congestive heart failure. She was diuresed and treated for heart failure and started on guideline directed medical therapy because her ejection fraction was severely reduced on echocardiogram. The pattern look like LAD ischemia versus takotsubo cardiomyopathy. After discussion she was referred to [facility] which she underwent cardiac catheterization by Dr. Givens because she belongs to [facility]. 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 She is here for follow-up after cardiac catheterization. She wishes to move her cardiovascular care to [facility]. She is denying any chest discomfort. She has chronic dyspnea due to underlying COPD and is oxygen dependent. Repeat echocardiography has shown resolution of LV dysfunction. In the interim she saw primary care physician and was noticed to have atrial fibrillation. After discussion she was started on apixaban. On follow-up today she is denying any palpitations. She has no chest pain. She has shortness of breath due to underlying lung disease. She is fatigued and tired. She underwent cardiac rehabilitation and feels that she has more energy and felt better. She has finished her sessions for cardiac rehabilitation. 05/15/23: She returns for follow-up. She was admitted at [facility] in February 2023. She was diagnosed with pneumonia and was treated with antibiotics and transition to oral doxycycline at discharge. She had echocardiography while she was inpatient which showed EF of 60 65%, moderate left atrial dilatation, severe mitral annular calcification, [id number] mitral regurgitation, moderate tricuspid valve regurgitation and moderate pulmonary hypertension. She contracted COVID-19 a week ago. She is saying she was getting better but last night she started coughing more. She is saying that she has been using more oxygen than usual to. She had some chills. No fevers otherwise. Appetite so far is fine. She is saying that she is producing green phlegm. Pacemaker interrogation was done which was quite unremarkable. [facility] Medical History (Updated 05/15/23 @ 10:01 by Sunil Coto MD) PAF (paroxysmal atrial fibrillation) COPD (chronic obstructive pulmonary disease) CHF (congestive heart failure) Chronic anticoagulation Renal failure Cardiac pacemaker in situ Rhabdomyolysis Pneumonia Hyponatremia Hyperlipemia HTN (hypertension) Osteoporosis SSS (sick sinus syndrome) Meniere disease Sleep apnea Surgical History History of permanent cardiac pacemaker placement History of endoscopy History of hysterectomy History of cardiac cath Family History Father Lung cancer Mother COPD (chronic obstructive pulmonary disease) Social History Household Members: Spouse Housing: House Do you presently have visiting nurse or other home services: Yes (VNA and OT) Alcohol intake: never Patient Tobacco Use Status: Former Tobacco user Quit Date: 1989 Smoked: 30 +/- e-Cigarette/Vaping Use: Never Used Second Hand Smoke Exposure: No Advance Directives Date on File: 02/06/23 service: No Current occupational status: retired Cognitive needs: No Hearing needs: Yes Vision needs: Yes Physical Exam Vital Signs: Last Vital Signs Pulse 83 05/15/23 09:34 BP 122/72 05/15/23 09:34 BMI result Body Mass Index 23.2 GENERAL APPEARANCE: in no acute distress, pleasant. NECK: no carotid bruit, no jugular venous distention. SKIN: no suspicious lesions, warm and dry. HEART: no murmurs, regular rate and rhythm. LUNGS: CTABL ABDOMEN: soft, nontender. EXTREMITIES: no edema. PERIPHERAL PULSES: equal. NEUROLOGIC: No gross deficits, AAO X 3 Assessment & Plan Assessment & Plan (1) COPD (chronic obstructive pulmonary disease): Comment: O2 dependent, Dr. Rhoades Code(s): J44.9 - Chronic obstructive pulmonary disease, unspecified (2) PAF (paroxysmal atrial fibrillation): Comment: 10/13 Holter frequent APCs Code(s): I48.0 - Paroxysmal atrial fibrillation Plan 78-year-old female who is here for follow-up. She has history of sick sinus syndrome previous pacemaker. She has battery change and had atrial lead placement by Dr. Robles in February 2023. At that time she was admitted to hospital with pneumonia. She had COVID-19 infection 1 week ago. She has been coughing more since last night and also has increased her oxygen. She also had some chills. I have advised her to start doxycycline 100 mg twice a day. I have also advised her to get in touch with her talent acquisition consultant Dr. Mazariegos. In sinus rhythm currently and pacemaker is working fine. Continue rest of the medications as before. Blood pressure is well controlled. Thank you for allowing me to participate in the care of your patient. Please feel free to contact me if you have any questions. Medications: New doxycycline hyclate 100 mg PO BID 20 caps 0RF J44.9 - Chronic obstructive pulmonary disease, unspecified Coding Level of Care Code Est Pt Level 4 (84739) Diagnoses COPD (chronic obstructive pulmonary disease) J44.9 PAF (paroxysmal atrial fibrillation) I48.0
[2023-05-15 09:34] VITALS: BP 122/72; PULSE 83; BMI 23.2
== END 2023-05-15 10:01 | disposition home or self-care (01) ==
PROVIDERS: PCP Internal Medicine; Visit Provider Internal Medicine Cardiovascular Disease
DX: I48.0 Paroxysmal atrial fibrillation (principal); J44.9 Chronic obstructive pulmonary disease, unspecified; Z95.0 Presence of cardiac pacemaker
CPT/HCPCS: 93288; 99214

== ENCOUNTER → 2023-05-15 08:35 | Outpatient (BNVA) | payer MEDICARE, SELFPAY ==
[2023-04-25 12:31] VITALS: BP 118/60; BP 90/52; BP 92/48; BMI 25.0
== END ==
PROVIDERS: PCP Internal Medicine; Visit Provider Internal Medicine Cardiovascular Disease
DX: Z45.018 Encounter for adjustment and management of other part of cardiac pacemaker (principal); I48.0 Paroxysmal atrial fibrillation; J44.9 Chronic obstructive pulmonary disease, unspecified
CPT/HCPCS: 99212

== ENCOUNTER 2023-05-23 11:27 | Outpatient (REF) | payer MEDICARE, SELFPAY ==
[2023-04-25 12:31] VITALS: BP 118/60; BP 90/52; BP 92/48; BMI 25.0
--- NOTE | ~2023-05-23 | XR_ITS ---
EXAMINATION: XR CHEST CLINICAL INFORMATION: COPD COMPARISON: Chest x-ray 04/25/2023 TECHNIQUE: 2 views of the chest were obtained. FINDINGS: The lungs are well-expanded and clear. The heart size and pulmonary vascularity is normal. There are pacer electrodes in right atrium and right ventricle. No gross bony abnormality seen. XR/XR chest 2V IMPRESSION: Unremarkable chest exam.
[2023-05-23 13:30] LABS: MANUAL DIFF FLAG NO
[2023-05-23 13:40] LABS: Basophils Percent Auto 0.6 % (0-2); Eosinophils Percent Auto 0.6 % (0-4); Hematocrit 40.4 % (37.0-47.0); Hemoglobin 13.1 g/dl (12.0-16.0); Imm Gran Abs Auto 0.02 X10*3/uL (0.00-0.03); Imm Gran Pct Auto 0.3 % (0.0-0.4); Lymphocytes Absolute Auto 0.9 X10*3/uL (1.2-4.9); Mean Corpuscular HGB Conc 32.4 g/dl (31.0-35.0); Mean Corpuscular Hemoglobin 30.2 pg (27.0-33.0); Mean Corpuscular Volume 93.1 fL (80.0-98.0); Monocytes Absolute Auto 0.5 X10*3/uL (0.1-1.2); Monocytes Percent Auto 7.4 % (2-11); Neutrophils Absolute Auto 5.6 x10*3/uL (2.0-8.3); Neutrophils Percent Auto 78.1 % (45-73); Platelet Count 439 X10*3/uL (160-400); Red Blood Count 4.34 X10*6/uL (4.20-5.50); Red Cell Distribution Width 17.2 % (11.0-16.0); White Blood Count 7.1 X10*3/uL (4.8-10.8)
[2023-05-23 14:12] LABS: Alanine Aminotransferase 11 U/L (0-31); Albumin Level 3.8 g/dL (3.5-5.0); Alkaline Phosphatase 72 U/L (39-117); Anion Gap 13 (12-20); Aspartate Amino Transferase 25 U/L (5-31); Bilirubin Total 0.7 mg/dL (0.0-1.0); Blood Urea Nitrogen 7 mg/dL (9-16); Calcium 9.9 mg/dL (8.4-10.2); Carbon Dioxide 28 mmol/L (22-29); Chloride 98 mmol/L (96-108); Estimated Glomerular Filt Rate > 60; Glucose Random 91 mg/dL (60-115); Iron 116 mcg/dL (30-160); Percent Iron Saturation 43 % (15-50); Potassium 3.1 mmol/L (3.3-5.1); Sodium 136 mmol/L (135-145); Total Iron Binding Capacity 267 mcg/dL (228-428); Total Protein 7.2 g/dL (6.5-8.0); Unsaturated Iron Binding 151 ug/dL
[2023-05-23 14:18] LABS: Vitamin B12 > 2000 pg/mL (200-900)
[2023-05-23 14:46] LABS: B Type Natriuretic Peptide 214 pg/mL (<100)
== END 2023-05-23 11:28 | disposition home or self-care (01) ==
LOC: HO.HMGCX 11:27
PROVIDERS: PCP Internal Medicine; Visit Provider Internal Medicine
DX: I50.9 Heart failure, unspecified (principal); I49.5 Sick sinus syndrome; J44.9 Chronic obstructive pulmonary disease, unspecified; R05.9 Cough, unspecified
CPT/HCPCS: 36415; 71046; 80053; 82607; 83540; 83880; 85025

== ENCOUNTER 2023-05-23 11:39 | Outpatient (AMB) | payer MEDICARE, SELFPAY ==
[2022-12-20 14:49] VITALS: BP 118/60; BMI 25.0
[2023-04-25 12:31] VITALS: BP 118/60; BP 90/52; BP 92/48; BMI 25.0
[2023-05-23 12:27] VITALS: BP 120/68; PULSE 84; O2SAT 97; BMI 22.7
--- NOTE | 2023-05-23 12:27 | MHC.PC.OV ---
Vital Signs 05/23/23 12:27 Height 5 ft Weight 116 lb 4 oz BMI 22.7 BP 120/68 Blood Pressure Location Rt brachial Position Sitting Pulse 84 Pulse Source Pulse Oximeter Pulse Oximetry (%) 97 Oxygen Delivery Method Room Air Intake Visit Reasons: 1 month follow up Allergies gemifloxacin Allergy (Unknown, Verified 05/23/23 12:29) Rash montelukast [Singulair] Allergy (Unknown, Verified 05/23/23 12:29) mood swings Medication List - Last Reconciled 05/23/23 by Freida Yarbrough MD acetaminophen 650 mg PO Q6H PRN albuterol sulfate 90 mcg/actuation 2 puffs inhalation QID PRN amlodipine 5 mg PO DAILY apixaban (Eliquis) 5 mg PO BID ascorbic acid (vitamin C) 500 mg PO DAILY calcium carbonate (Calcium) 600 mg PO BID cetirizine (Zyrtec) 10 mg PO DAILY cholecalciferol (vitamin D3) (Vitamin D3) 50 mcg PO BEDTIME cyanocobalamin (vitamin B-12) 500 mcg sublingual DAILY doxycycline hyclate 100 mg PO BID ferrous sulfate 324 mg PO TUTHSA fluticasone propion-salmeterol 500-50 mcg/dose (Wixela Inhub) 1 inh inhalation Q12H fluticasone propionate 50 mcg/actuation 2 sprays intranasal BID furosemide 20 mg PO BID furosemide 40 mg PO DAILY ipratropium-albuterol 0.5 mg-3 mg(2.5 mg base)/3 mL 3 mL inhalation TID levothyroxine 25 mcg PO DAILY@0600 magnesium 400 mg PO BEDTIME multivitamin (Daily Multi-Vitamin tablet) 1 tab PO DAILY omeprazole 20 mg PO DAILY peg 400-propylene glycol (PF) 0.4-0.3 % (Systane (PF)) 1 drp ophthalmic (eye) BID pravastatin 20 mg PO BEDTIME Tobacco use date assessed: 05/23/23 Fall risk assessment: No Falls in past year Last assessed Fall Risk: 05/23/23 Dental Screening Dental Screen Date: 05/23/23 Did you have a dental visit in the last 12 months?: No Did you have a dental problem in the last 6 months where you did not have access to dental care?: No Was dental information given to patient?: No HPI 1 month follow up HPI Details Pt c/o 2 weeks for productive cough, chest and nasal congestion, low grade fever, increase LE swelling and SOB and wheezing. She has been taking Doxy for 1 week. Pt denies pleurisy, palp, CP, PND. [facility] Medical History (Updated 05/23/23 @ 12:59 by Freida Yarbrough MD) PAF (paroxysmal atrial fibrillation) COPD (chronic obstructive pulmonary disease) CHF (congestive heart failure) Chronic anticoagulation Renal failure Cardiac pacemaker in situ Rhabdomyolysis Pneumonia Hyponatremia Hyperlipemia HTN (hypertension) Osteoporosis SSS (sick sinus syndrome) Meniere disease Sleep apnea Surgical History History of permanent cardiac pacemaker placement History of endoscopy History of hysterectomy History of cardiac cath Family History Father Lung cancer Mother COPD (chronic obstructive pulmonary disease) Social History Household Members: Spouse Housing: House Do you presently have visiting nurse or other home services: Yes (VNA and OT) Alcohol intake: never Patient Tobacco Use Status: Former Tobacco user Quit Date: 1989 Smoked: 30 +/- e-Cigarette/Vaping Use: Never Used Second Hand Smoke Exposure: No Advance Directives Date on File: 02/06/23 service: No Current occupational status: retired Cognitive needs: No Hearing needs: Yes Vision needs: Yes Questionnaire Thrive Questionnaire Date Thrive assessed: 03/16/23 AUDIT C Alcohol Use Questionnaire (AUDIT-C) 1. How often do you have a drink containing alcohol?: Never 3. How often do you have six or more drinks on one occasion?: Never Total Score: 0 Score Reviewed/Action Taken: Yes YUDELKA-7 AMB Questionnaire YUDELKA-7 Date YUDELKA - 7 assessed: 12/29/22 Source: Developed by Drs. Jerry Munoz, Karishma Melgar, Joaquin Ariza and colleagues, with an educational gaby from [employer]. Review of Systems Const All systems reviewed & are unremarkable except as noted in HPI and below Reports no additional complaints Eyes Reports no additional complaints ENT Reports no additional complaints Card Reports no additional complaints Resp Reports no additional complaints GI Reports no additional complaints Physical exam (Primary Care) Vital Signs: Last Vital Signs Pulse 84 05/23/23 12:27 BP 120/68 05/23/23 12:27 Pulse Ox 97 05/23/23 12:27 Oxygen Delivery Method Room Air 05/23/23 12:27 BMI result Body Mass Index 22.7 Tobacco/Smoking Status: Tobacco use Status Tobacco use date assessed 05/23/23 05/23/23 12:31 Patient Tobacco Use Status Former Tobacco user 05/23/23 12:31 e-Cigarette/Vaping Use Never Used 05/23/23 12:31 Thrive Assessment: Date of Thrive Assessment Date Thrive assessed 03/16/23 05/23/23 12:31 Const General: anxious and ill appearing HENMT Head: Yes normal to inspection Face and sinus: Yes normal facial exam Neck Neck: Yes no lymphadenopathy and Yes supple Resp Effort & Inspection: able to speak in complete sentences, audible wheezes and tachypneic Auscultation: wheezes and diminished lung sounds Cardio Rhythm: regular rhythm Heart sounds: S1 normal heart sound present and S2 normal heart sound present GI Inspection: Yes normal to inspection Extrem Other: +3 PITTING EDEMA B/L Assessment and Plan Assessment & Plan (1) COPD (chronic obstructive pulmonary disease): Comment: O2 dependent, Dr. Rhoades Code(s): J44.9 - Chronic obstructive pulmonary disease, unspecified Plan: For COPD exacerbation prednisone 60 mg for 4 days then 40 mg for 4 days and 20 mg of 4 days is prescribed. Patient will complete doxycycline course for 2 more days increase DuoNeb to every 6 hours and use albuterol up drops in between as needed. Continue supplemental O2. Check chest x-ray today. Follow-up in 1 week. For worsening symptoms patient was advised to go to the ER (2) PAF (paroxysmal atrial fibrillation): Comment: 10/13 Holter frequent APCs Code(s): I48.0 - Paroxysmal atrial fibrillation Plan: Continue Eliquis, will consider adding low-dose of metoprolol during the next visit (3) CHF (congestive heart failure): Comment: echo 08/2019 PVC nl EF, pulmonary hypertension, repeat Echo 07/14 EF 25%, global hypokinesis, negative cardiac cath 07/14, 03/15 LVEF 50% [facility] [place](s): I50.9 - Heart failure, unspecified Plan: Increase furosemide to 40 mg in the morning and 20 in the afternoon, monitor daily weights Orders: Orders XR chest 2V Today J44.9 - Chronic obstructive pulmonary disease, unspecified, R05.9 - Cough, unspecified Medications: New albuterol sulfate 0.63 mg (3 mL) inhalation Q4-6H PRN 90 mL 0RF shortness of breath or wheezing furosemide 1 tabl qd AM, in addition to 20 mg of Furosemide in PM 40 mg PO DAILY 90 tabs 0RF prednisone 3 tabl po qd x 4 days, then 2 tabl QD x4days, then 1 tabl qd x 4 days orally daily; 24 tabs 0RF Coding Level of Care Code Est Pt Level 4 (15119) Diagnoses COPD (chronic obstructive pulmonary disease) J44.9 PAF (paroxysmal atrial fibrillation) I48.0 CHF (congestive heart failure) I50.9
== END 2023-05-23 13:10 | disposition home or self-care (01) ==
PROVIDERS: PCP Internal Medicine; Visit Provider Internal Medicine
DX: J44.9 Chronic obstructive pulmonary disease, unspecified (principal); I48.0 Paroxysmal atrial fibrillation; I50.9 Heart failure, unspecified
CPT/HCPCS: 99214

== ENCOUNTER 2023-05-29 08:43 | Outpatient (AMB) | payer MEDICARE, SELFPAY ==
[2023-04-25 12:31] VITALS: BP 118/60; BP 90/52; BP 92/48; BMI 25.0
--- NOTE | 2023-05-29 08:53 | MHC.PC.OV ---
Vital Signs 05/29/23 08:54 Height 5 ft Weight 115 lb BMI 22.5 BP 108/64 Blood Pressure Location Lt brachial Position Sitting Pulse 82 Pulse Source Pulse Oximeter Pulse Oximetry (%) 90 L Oxygen Delivery Method Nasal Cannula Intake Visit Reasons: Follow up complex Intake Note: Pt is here today for a follow up visit. Allergies gemifloxacin Allergy (Unknown, Verified 05/29/23 08:57) Rash montelukast [Singulair] Allergy (Unknown, Verified 05/29/23 08:57) mood swings Medication List - Last Reconciled 05/29/23 by Freida Yarbrough MD acetaminophen 650 mg PO Q6H PRN albuterol sulfate 0.63 mg (3 mL) inhalation Q4-6H PRN albuterol sulfate 90 mcg/actuation 2 puffs inhalation QID PRN amlodipine 5 mg PO DAILY apixaban (Eliquis) 5 mg PO BID ascorbic acid (vitamin C) 500 mg PO DAILY calcium carbonate (Calcium) 600 mg PO BID cetirizine (Zyrtec) 10 mg PO DAILY cholecalciferol (vitamin D3) (Vitamin D3) 50 mcg PO BEDTIME cyanocobalamin (vitamin B-12) 500 mcg sublingual DAILY ferrous sulfate 324 mg PO TUTHSA fluticasone propion-salmeterol 500-50 mcg/dose (Wixela Inhub) 1 inh inhalation Q12H fluticasone propionate 50 mcg/actuation 2 sprays intranasal BID furosemide 20 mg PO BID furosemide 40 mg PO DAILY ipratropium-albuterol 0.5 mg-3 mg(2.5 mg base)/3 mL 3 mL inhalation TID levothyroxine 25 mcg PO DAILY@0600 magnesium 400 mg PO BEDTIME multivitamin (Daily Multi-Vitamin tablet) 1 tab PO DAILY omeprazole 20 mg PO DAILY peg 400-propylene glycol (PF) 0.4-0.3 % (Systane (PF)) 1 drp ophthalmic (eye) BID potassium chloride ER 20 mEq PO BID pravastatin 20 mg PO BEDTIME prednisone 3 tabl po qd x 4 days, then 2 tabl QD x4days, then 1 tabl qd x 4 days orally daily; Tobacco use date assessed: 05/23/23 HPI Follow up complex HPI Details Pt presents for follow-up of COPD exacerbation. Patient is feeling slightly better still reports productive cough and wheezing but denies PND orthopnea. Lower extremity swelling improved significantly. [facility] Medical History (Updated 05/26/23 @ 15:11 by Freida Yarbrough MD) PAF (paroxysmal atrial fibrillation) COPD (chronic obstructive pulmonary disease) CHF (congestive heart failure) Chronic anticoagulation Renal failure Cardiac pacemaker in situ Rhabdomyolysis Pneumonia Hyponatremia Hyperlipemia HTN (hypertension) Osteoporosis SSS (sick sinus syndrome) Meniere disease Sleep apnea Surgical History History of permanent cardiac pacemaker placement History of endoscopy History of hysterectomy History of cardiac cath Family History Father Lung cancer Mother COPD (chronic obstructive pulmonary disease) Social History Household Members: Spouse Housing: House Do you presently have visiting nurse or other home services: Yes (VNA and OT) Alcohol intake: never Patient Tobacco Use Status: Former Tobacco user Quit Date: 1989 Smoked: 30 +/- e-Cigarette/Vaping Use: Never Used Second Hand Smoke Exposure: No Advance Directives Date on File: 02/06/23 service: No Current occupational status: retired Cognitive needs: No Hearing needs: Yes Vision needs: Yes Questionnaire Thrive Questionnaire Date Thrive assessed: 03/16/23 YUDELKA-7 AMB Questionnaire YUDELKA-7 Date YUDELKA - 7 assessed: 12/29/22 Source: Developed by Drs. Jerry Munoz, Karishma Mlegar, Joaquin Ariza and colleagues, with an educational gaby from [employer]. Review of Systems Const All systems reviewed & are unremarkable except as noted in HPI and below Eyes Reports no additional complaints ENT Reports no additional complaints Card Reports no additional complaints Resp Reports no additional complaints GI Reports no additional complaints Physical exam (Primary Care) Vital Signs: Last Vital Signs Pulse 82 05/29/23 08:54 BP 108/64 05/29/23 08:54 Pulse Ox 90 L 05/29/23 08:54 Oxygen Delivery Method Nasal Cannula 05/29/23 08:54 BMI result Body Mass Index 22.5 Tobacco/Smoking Status: Tobacco use Status Tobacco use date assessed 05/23/23 05/29/23 09:02 Patient Tobacco Use Status Former Tobacco user 05/29/23 09:02 e-Cigarette/Vaping Use Never Used 05/29/23 09:02 Thrive Assessment: Date of Thrive Assessment Date Thrive assessed 03/16/23 05/29/23 09:02 Const General: no acute distress HENMT Head: Yes normal to inspection Mouth: Normal oral and palatal mucosa present Neck Neck: Yes supple Resp Effort & Inspection: able to speak in complete sentences and tachypneic Auscultation: rhonchi, wheezes and diminished lung sounds Cardio Rhythm: regular rhythm Heart sounds: S1 normal heart sound present and S2 normal heart sound present Extrem Other: 2+ pitting edema bilaterally Assessment and Plan Assessment & Plan (1) COPD (chronic obstructive pulmonary disease): Comment: O2 dependent, Dr. Rhoades Code(s): J44.9 - Chronic obstructive pulmonary disease, unspecified Plan: Continue 40 mg of prednisone for 4 more days and then taper to 20 mg. Continue DuoNeb 4 times a day and albuterol in between as needed. Augmentin for 7 days is prescribed. Follow-up in 1 week (2) CHF (congestive heart failure): Comment: echo 08/2019 PVC nl EF, pulmonary hypertension, repeat Echo 07/14 EF 25%, global hypokinesis, negative cardiac cath 07/14, 03/15 LVEF 50% [facility] [place](s): I50.9 - Heart failure, unspecified Plan: Continue 60 mg of furosemide and elevate lower extremities (3) Hypokalemia: Code(s): E87.6 - Hypokalemia Plan: Patient will continue potassium replacement and recheck potassium level in 3 days Medications: New amoxicillin-pot clavulanate 875-125 mg 1 tab PO BID 14 tabs 0RF prednisone 20 mg PO DAILY 10 tabs 0RF Coding Level of Care Code Est Pt Level 4 (08448) Diagnoses COPD (chronic obstructive pulmonary disease) J44.9 CHF (congestive heart failure) I50.9 Hypokalemia E87.6
[2023-05-29 08:54] VITALS: BP 108/64; PULSE 82; O2SAT 90; BMI 22.5
== END 2023-05-29 09:49 | disposition home or self-care (01) ==
PROVIDERS: PCP Internal Medicine; Visit Provider Internal Medicine
DX: J44.9 Chronic obstructive pulmonary disease, unspecified (principal); I50.9 Heart failure, unspecified; E87.6 Hypokalemia
CPT/HCPCS: 99214

== ENCOUNTER 2023-06-01 11:03 | Outpatient (REF) | payer MEDICARE, SELFPAY ==
[2023-04-25 12:31] VITALS: BP 118/60; BP 90/52; BP 92/48; BMI 25.0
[2023-06-01 13:49] LABS: Anion Gap 14 (12-20); Blood Urea Nitrogen 18 mg/dL (9-16); Calcium 9.6 mg/dL (8.4-10.2); Carbon Dioxide 28 mmol/L (22-29); Chloride 98 mmol/L (96-108); Estimated Glomerular Filt Rate > 60; Glucose Random 87 mg/dL (60-115); Magnesium 2.2 mg/dL (1.6-2.6); Potassium 4.7 mmol/L (3.3-5.1); Sodium 135 mmol/L (135-145)
== END 2023-06-01 11:04 | disposition home or self-care (01) ==
LOC: HO.HMGCLDS 11:03
PROVIDERS: PCP Internal Medicine; Visit Provider Internal Medicine
DX: E87.6 Hypokalemia (principal)
CPT/HCPCS: 36415; 80048; 83735

== ENCOUNTER 2023-06-06 13:20 | Outpatient (AMB) | payer MEDICARE, SELFPAY ==
[2023-04-25 12:31] VITALS: BP 118/60; BP 90/52; BP 92/48; BMI 25.0
--- NOTE | 2023-06-06 13:29 | MHC.PC.OV ---
Vital Signs 06/06/23 13:33 Height 5 ft Weight 112 lb BMI 21.9 BP 100/52 L Blood Pressure Location Lt brachial Position Sitting Pulse 63 Pulse Source Pulse Oximeter Pulse Oximetry (%) 90 L Oxygen Delivery Method Nasal Cannula Intake Visit Reasons: 1 Week follow up COPD Allergies gemifloxacin Allergy (Unknown, Verified 06/06/23 13:33) Rash montelukast [Singulair] Allergy (Unknown, Verified 06/06/23 13:33) mood swings Medication List - Last Reconciled 06/06/23 by Freida Yarbrough MD acetaminophen 650 mg PO Q6H PRN albuterol sulfate 0.63 mg (3 mL) inhalation Q4-6H PRN albuterol sulfate 90 mcg/actuation 2 puffs inhalation QID PRN amlodipine 2.5 mg PO DAILY apixaban (Eliquis) 5 mg PO BID ascorbic acid (vitamin C) 500 mg PO DAILY calcium carbonate (Calcium) 600 mg PO BID cetirizine (Zyrtec) 10 mg PO DAILY cholecalciferol (vitamin D3) (Vitamin D3) 50 mcg PO BEDTIME cyanocobalamin (vitamin B-12) 500 mcg sublingual DAILY ferrous sulfate 324 mg PO TUTHSA fluticasone propion-salmeterol 500-50 mcg/dose (Wixela Inhub) 1 inh inhalation Q12H fluticasone propionate 50 mcg/actuation 2 sprays intranasal BID furosemide 20 mg PO BID furosemide 40 mg PO DAILY ipratropium-albuterol 0.5 mg-3 mg(2.5 mg base)/3 mL 3 mL inhalation TID levothyroxine 25 mcg PO DAILY@0600 magnesium 400 mg PO BEDTIME multivitamin (Daily Multi-Vitamin tablet) 1 tab PO DAILY omeprazole 20 mg PO DAILY peg 400-propylene glycol (PF) 0.4-0.3 % (Systane (PF)) 1 drp ophthalmic (eye) BID potassium chloride ER 20 mEq PO DAILY pravastatin 20 mg PO BEDTIME Tobacco use date assessed: 05/23/23 HPI 1 Week follow up COPD HPI Details PATIENT PRESENTS FOR THE FOLLOW-UP OF COPD EXACERBATION. Patient is feeling better still reports occasionally sinus congestion postnasal drip and cough but no sputum production fever chills wheezing or pleurisy. Patient has been using supplemental O2 24 hours 2 and half to 3 L [facility] Medical History (Updated 06/06/23 @ 14:42 by Freida Yarbrough MD) HTN (hypertension) PAF (paroxysmal atrial fibrillation) COPD (chronic obstructive pulmonary disease) CHF (congestive heart failure) Chronic anticoagulation Renal failure Cardiac pacemaker in situ Rhabdomyolysis Pneumonia Hyponatremia Hyperlipemia Osteoporosis SSS (sick sinus syndrome) Meniere disease Sleep apnea Surgical History History of permanent cardiac pacemaker placement History of endoscopy History of hysterectomy History of cardiac cath Family History Father Lung cancer Mother COPD (chronic obstructive pulmonary disease) Social History Household Members: Spouse Housing: House Do you presently have visiting nurse or other home services: Yes (VNA and OT) Alcohol intake: never Patient Tobacco Use Status: Former Tobacco user Quit Date: 1989 Smoked: 30 +/- e-Cigarette/Vaping Use: Never Used Second Hand Smoke Exposure: No Advance Directives Date on File: 02/06/23 service: No Current occupational status: retired Cognitive needs: No Hearing needs: Yes Vision needs: Yes Questionnaire Thrive Questionnaire Date Thrive assessed: 03/16/23 YUDELKA-7 AMB Questionnaire YUDELKA-7 Date YUDELKA - 7 assessed: 12/29/22 Source: Developed by Drs. Jerry Munoz, Karishma Melgar, Joaquin Ariza and colleagues, with an educational gaby from [employer]. Review of Systems Const All systems reviewed & are unremarkable except as noted in HPI and below Reports no additional complaints Eyes Reports no additional complaints ENT Reports no additional complaints Card Reports no additional complaints GI Reports no additional complaints Reports no additional complaints Physical exam (Primary Care) Vital Signs: Last Vital Signs Pulse 63 06/06/23 13:33 BP 100/52 L 06/06/23 13:33 Pulse Ox 84 L 06/06/23 13:33 Oxygen Delivery Method Nasal Cannula 06/06/23 13:33 BMI result Body Mass Index 21.9 Tobacco/Smoking Status: Tobacco use Status Tobacco use date assessed 05/23/23 06/06/23 13:32 Patient Tobacco Use Status Former Tobacco user 06/06/23 13:32 e-Cigarette/Vaping Use Never Used 06/06/23 13:32 Thrive Assessment: Date of Thrive Assessment Date Thrive assessed 03/16/23 06/06/23 13:32 Const General: no acute distress HENMT Mouth: Normal oral and palatal mucosa present Throat: Yes posterior oropharynx normal Neck Neck: Yes no lymphadenopathy and Yes supple Resp Effort & Inspection: normal respiratory effort Auscultation: crackles (AT BASES B/L) and diminished lung sounds Cardio Rhythm: regular rhythm Heart sounds: S1 normal heart sound present and S2 normal heart sound present GI Inspection: Yes normal to inspection Extrem Other: 2+ pitting edema bilaterally Assessment and Plan Assessment & Plan (1) CHF (congestive heart failure): Comment: echo 08/2019 PVC nl EF, pulmonary hypertension, repeat Echo 07/14 EF 25%, global hypokinesis, negative cardiac cath 07/14, 03/15 LVEF 50% [facility] [place]s): I50.9 - Heart failure, unspecified Plan: Continue current treatment including 60 mg of furosemide. Patient was advised to restart potassium 20 mEq daily and check bmp in 4 days (2) COPD (chronic obstructive pulmonary disease): Comment: O2 dependent, Dr. Rhoades Code(s): J44.9 - Chronic obstructive pulmonary disease, unspecified Plan: Continue current treatment and follow-up with technical associate (3) PAF (paroxysmal atrial fibrillation): Comment: 10/13 Holter frequent APCs Code(s): I48.0 - Paroxysmal atrial fibrillation Plan: Continue Eliquis (4) Postmenopausal: Comment: Reclast infusion in March 2022 by bar tacker, obtain DEXA to decide on continuing Reclast infusion Code(s): Z78.0 - Asymptomatic menopausal state Plan: Follow-up in 1 month (5) HTN (hypertension): Code(s): I10 - Essential (primary) hypertension Plan: Blood pressure is low and patient has been taking 5 mg of amlodipine for the last 4 months prescribed by technical associate. Amlodipine will be decreased to 2.5 mg and patient will follow-up in 1 month. Orders: Orders Basic Metabolic Panel 06/09/23 I48.0 - Paroxysmal atrial fibrillation, I50.9 - Heart failure, unspecified, J44.9 - Chronic obstructive pulmonary disease, unspecified XR DEXA axial skeleton Today Z78.0 - Asymptomatic menopausal state Medications: New amlodipine 2.5 mg PO DAILY 30 tabs 1RF Changed From potassium chloride ER 20 mEq PO BID 30 tabs 0RF To potassium chloride ER 20 mEq PO DAILY Discontinued prednisone Discontinued Reason: Doctor's Order 3 tabl po qd x 4 days, then 2 tabl QD x4days, then 1 tabl qd x 4 days orally daily; 24 tabs 0RF prednisone Discontinued Reason: Doctor's Order 20 mg PO DAILY 10 tabs 0RF Coding Level of Care Code Est Pt Level 4 (43992) Diagnoses CHF (congestive heart failure) I50.9 COPD (chronic obstructive pulmonary disease) J44.9 PAF (paroxysmal atrial fibrillation) I48.0 Postmenopausal Z78.0 HTN (hypertension) I10
[2023-06-06 13:33] VITALS: BP 100/52; PULSE 63; O2SAT 90; BMI 21.9
== END 2023-06-06 14:24 | disposition home or self-care (01) ==
PROVIDERS: PCP Internal Medicine; Visit Provider Internal Medicine
DX: I11.0 Hypertensive heart disease with heart failure (principal); I50.9 Heart failure, unspecified; J44.9 Chronic obstructive pulmonary disease, unspecified; I48.0 Paroxysmal atrial fibrillation; Z78.0 Asymptomatic menopausal state
CPT/HCPCS: 99214

== ENCOUNTER 2023-06-10 13:11 | Outpatient (REF) | payer MEDICARE, SELFPAY ==
[2023-04-25 12:31] VITALS: BP 118/60; BP 90/52; BP 92/48; BMI 25.0
[2023-06-10 15:33] LABS: Anion Gap 13 (12-20); Blood Urea Nitrogen 15 mg/dL (9-16); Calcium 9.4 mg/dL (8.4-10.2); Carbon Dioxide 25 mmol/L (22-29); Chloride 100 mmol/L (96-108); Estimated Glomerular Filt Rate > 60; Glucose Random 92 mg/dL (60-115); Sodium 134 mmol/L (135-145)
== END 2023-06-10 13:12 | disposition home or self-care (01) ==
LOC: HO.HMGCLDS 13:11
PROVIDERS: PCP Internal Medicine; Visit Provider Internal Medicine
DX: I50.9 Heart failure, unspecified (principal); J44.9 Chronic obstructive pulmonary disease, unspecified; I48.0 Paroxysmal atrial fibrillation
CPT/HCPCS: 36415; 80048

== ENCOUNTER 2023-06-21 13:36 | Outpatient (AMB) | payer MEDICARE, SELFPAY ==
[2023-04-25 12:31] VITALS: BP 118/60; BP 90/52; BP 92/48; BMI 25.0
--- NOTE | 2023-06-21 13:43 | MHC.PC.OV ---
Vital Signs 06/21/23 13:44 Height 5 ft Weight 113 lb BMI 22.1 BP 112/64 Blood Pressure Location Lt brachial Position Sitting Pulse 85 Pulse Source Pulse Oximeter Pulse Oximetry (%) 92 Oxygen Delivery Method Room Air Intake Visit Reasons: Follow Up Allergies gemifloxacin Allergy (Unknown, Verified 06/21/23 13:44) Rash montelukast [Singulair] Allergy (Unknown, Verified 06/21/23 13:44) mood swings Medication List - Last Reconciled 06/21/23 by Freida Yarbrough MD acetaminophen 650 mg PO Q6H PRN albuterol sulfate 0.63 mg (3 mL) inhalation Q4-6H PRN albuterol sulfate 90 mcg/actuation 2 puffs inhalation QID PRN amlodipine 2.5 mg PO DAILY apixaban (Eliquis) 5 mg PO BID ascorbic acid (vitamin C) 500 mg PO DAILY calcium carbonate (Calcium) 600 mg PO BID cetirizine (Zyrtec) 10 mg PO DAILY cholecalciferol (vitamin D3) (Vitamin D3) 50 mcg PO BEDTIME cyanocobalamin (vitamin B-12) 500 mcg sublingual DAILY ferrous sulfate 324 mg PO TUTHSA fluticasone propion-salmeterol 500-50 mcg/dose (Wixela Inhub) 1 inh inhalation Q12H fluticasone propionate 50 mcg/actuation 2 sprays intranasal BID furosemide 20 mg PO BID furosemide 40 mg PO DAILY ipratropium-albuterol 0.5 mg-3 mg(2.5 mg base)/3 mL 3 mL inhalation TID levothyroxine 25 mcg PO DAILY@0600 magnesium 400 mg PO BEDTIME multivitamin (Daily Multi-Vitamin tablet) 1 tab PO DAILY omeprazole 20 mg PO DAILY peg 400-propylene glycol (PF) 0.4-0.3 % (Systane (PF)) 1 drp ophthalmic (eye) BID potassium chloride ER 20 mEq PO DAILY pravastatin 20 mg PO BEDTIME Tobacco use date assessed: 05/23/23 HPI Follow Up HPI Details Patient presents for the follow-up of COPD hypertension and CHF. She feels better still has occasionally cough and is tapering down prednisone. [facility] Medical History (Updated 06/06/23 @ 14:42 by Freida Yarbrough MD) HTN (hypertension) PAF (paroxysmal atrial fibrillation) COPD (chronic obstructive pulmonary disease) CHF (congestive heart failure) Chronic anticoagulation Renal failure Cardiac pacemaker in situ Rhabdomyolysis Pneumonia Hyponatremia Hyperlipemia Osteoporosis SSS (sick sinus syndrome) Meniere disease Sleep apnea Surgical History History of permanent cardiac pacemaker placement History of endoscopy History of hysterectomy History of cardiac cath Family History Father Lung cancer Mother COPD (chronic obstructive pulmonary disease) Social History Household Members: Spouse Housing: House Do you presently have visiting nurse or other home services: Yes (VNA and OT) Alcohol intake: never Patient Tobacco Use Status: Former Tobacco user Quit Date: 1989 Smoked: 30 +/- e-Cigarette/Vaping Use: Never Used Second Hand Smoke Exposure: No Advance Directives Date on File: 02/06/23 service: No Current occupational status: retired Cognitive needs: No Hearing needs: Yes Vision needs: Yes Questionnaire Thrive Questionnaire Date Thrive assessed: 03/16/23 YUDELKA-7 AMB Questionnaire YUDELKA-7 Date YUDELKA - 7 assessed: 12/29/22 Source: Developed by Drs. Jerry Munoz, Karishma Melgar, Joaquin Ariza and colleagues, with an educational gaby from [employer]. Review of Systems Const All systems reviewed & are unremarkable except as noted in HPI and below Reports no additional complaints Eyes Reports no additional complaints Card Reports no additional complaints Resp Reports no additional complaints GI Reports no additional complaints Reports no additional complaints Physical exam (Primary Care) Vital Signs: Last Vital Signs Pulse 85 06/21/23 13:44 BP 112/64 06/21/23 13:44 Pulse Ox 92 06/21/23 13:44 Oxygen Delivery Method Room Air 06/21/23 13:44 BMI result Body Mass Index 22.1 Tobacco/Smoking Status: Tobacco use Status Tobacco use date assessed 05/23/23 06/21/23 13:44 Patient Tobacco Use Status Former Tobacco user 06/21/23 13:44 e-Cigarette/Vaping Use Never Used 06/21/23 13:44 Thrive Assessment: Date of Thrive Assessment Date Thrive assessed 03/16/23 06/21/23 13:44 Const General: no acute distress HENMT Face and sinus: Yes normal facial exam Neck Neck: Yes supple Resp Effort & Inspection: normal respiratory effort Auscultation: wheezes and diminished lung sounds Cardio Rhythm: regular rhythm Heart sounds: S1 normal heart sound present and S2 normal heart sound present GI Palpation (GI): Soft to palpation Extrem General: Yes no clubbing, cyanosis or edema Assessment and Plan Assessment & Plan (1) Hypokalemia: Code(s): E87.6 - Hypokalemia Plan: Continue potassium supplement and decrease furosemide to 40 mg a day check electrolytes in 2 weeks (2) PAF (paroxysmal atrial fibrillation): Comment: 10/13 Holter frequent APCs Code(s): I48.0 - Paroxysmal atrial fibrillation Plan: Continue Eliquis (3) HTN (hypertension): Code(s): I10 - Essential (primary) hypertension Plan: Continue 2.5 mg of amlodipine (4) COPD (chronic obstructive pulmonary disease): Comment: O2 dependent, Dr. Rhoades Code(s): J44.9 - Chronic obstructive pulmonary disease, unspecified Plan: Continue supplemental O2 Wixela and DuoNeb twice a day, follow-up with pulmonology in July Orders: Orders Basic Metabolic Panel 2 Weeks E87.6 - Hypokalemia, I48.0 - Paroxysmal atrial fibrillation Medications: New potassium chloride ER 20 mEq PO DAILY 90 tabs 0RF Refilled potassium chloride ER 20 mEq PO DAILY 90 tabs 0RF Discontinued furosemide 1 tabl qd AM, in addition to 20 mg of Furosemide in PM Discontinued Reason: Doctor's Order 40 mg PO DAILY 90 tabs 0RF Coding Level of Care Code Est Pt Level 4 (14714) Diagnoses Hypokalemia E87.6 PAF (paroxysmal atrial fibrillation) I48.0 HTN (hypertension) I10 COPD (chronic obstructive pulmonary disease) J44.9
[2023-06-21 13:44] VITALS: BP 112/64; PULSE 85; O2SAT 92; BMI 22.1
== END 2023-06-21 15:09 | disposition home or self-care (01) ==
PROVIDERS: PCP Internal Medicine; Visit Provider Internal Medicine
DX: E87.6 Hypokalemia (principal); I48.0 Paroxysmal atrial fibrillation; I10 Essential (primary) hypertension; J44.9 Chronic obstructive pulmonary disease, unspecified
CPT/HCPCS: 99214

== ENCOUNTER 2023-07-07 10:26 | Outpatient (REF) | payer MEDICARE, SELFPAY ==
[2023-04-25 12:31] VITALS: BP 118/60; BP 90/52; BP 92/48; BMI 25.0
[2023-07-07 14:19] LABS: Anion Gap 14 (12-20); Blood Urea Nitrogen 16 mg/dL (9-16); Calcium 9.6 mg/dL (8.4-10.2); Carbon Dioxide 24 mmol/L (22-29); Chloride 103 mmol/L (96-108); Estimated Glomerular Filt Rate > 60; Glucose Random 70 mg/dL (60-115); Sodium 137 mmol/L (135-145)
== END 2023-07-07 10:27 | disposition home or self-care (01) ==
LOC: HO.HMGCLDS 10:26
PROVIDERS: PCP Internal Medicine; Visit Provider Internal Medicine
DX: I48.0 Paroxysmal atrial fibrillation (principal); E87.6 Hypokalemia
CPT/HCPCS: 36415; 80048

== ENCOUNTER 2023-07-25 08:28 | Outpatient (REF) | payer MEDICARE, SELFPAY ==
[2023-04-25 12:31] VITALS: BP 118/60; BP 90/52; BP 92/48; BMI 25.0
--- NOTE | ~2023-07-25 | MM_ITS ---
EXAMINATION: BONE DENSITOMETRY CLINICAL INDICATION: Asymptomatic menopausal state. COMPARISON: This is the patient's baseline examination. TECHNIQUE: Using a [facility] DXA System (software version: 13.1) manufactured by [employer], dual-energy x-ray absorptiometry was performed of the lumbar spine and left hip. The images are of good technical quality. Summary results are attached. FINDINGS: LEFT FEMUR, NECK: BMD 0.734 g/cm2, Z-score 0.2, T-score -2.2, osteopenia. LEFT FEMUR, TOTAL: BMD 0.777 g/cm2, Z-score 0.5, T-score -1.8, osteopenia. AP SPINE L1-L4: BMD 1.020 g/cm2, Z-score 1.0, T-score -1.3, osteopenia. IDENTIFIED RISK FACTORS: Early menopause, secondary osteoporosis, alcohol use, height loss, low body weight, osteoporosis, hysterectomy. HISTORY OF FRACTURE: None listed. MEDICATIONS: Calcium supplements or multivitamin, vitamin D, bisphosphonates. MM/XR DEXA axial skeleton IMPRESSION: 1. DIAGNOSIS: Osteopenia based on the lowest T-score value of -2.2 in the femoral neck applying World Health Organization criteria. 2. 10-YEAR FRACTURE RISK PREDICTION, FRAX: Not performed in this patient on estrogen or bone building treatments. 3. Treatment Recommendations: NOF guidelines recommend consideration for treatment in postmenopausal women and men age 50 and older presenting with the following: -A hip or vertebral (clinical or morphometric) fracture. -T-score less than or equal to -2.5 at the femoral neck or spine after appropriate evaluation to exclude secondary causes. -Low bone mass at the hip or spine and a 10-year fracture probability by FRAX of greater than or equal to 3% for hip fracture or greater than or equal to 20% for major osteoporotic fracture based on the [place] adapted WHO algorithm. 4. Other Recommendations: All treatment decisions require clinical judgment and consideration of individual patient factors, including patient preferences, comorbidities, previous drug use, risk factors not captured in the FRAX model (e.g. frailty, falls, vitamin D deficiency, increased bone turnover, interval significant decline in bone density) and possible under or overestimation of fracture risk by FRAX. Additional medical evaluation for secondary cause of low bone mineral density may be appropriate. FUTURE SCAN RECOMMENDATION: People with diagnosed cases of osteoporosis or at high risk for fracture should have regular bone mineral density tests. For patients eligible for Medicare, routine testing is allowed once every 2 years. The testing frequency can be increased to one year for patients who have rapidly progressing disease, those who are receiving or discontinuing medical therapy to restore bone mass, or have additional risk factors.
== END 2023-07-25 08:29 | disposition home or self-care (01) ==
LOC: HO.MAMMO 08:28
PROVIDERS: PCP Internal Medicine; Visit Provider Internal Medicine
DX: Z13.820 Encounter for screening for osteoporosis (principal); Z78.0 Asymptomatic menopausal state
CPT/HCPCS: 77080

== ENCOUNTER 2023-07-25 08:28 | Outpatient (REF) | payer MEDICARE, SELFPAY ==
[2023-04-25 12:31] VITALS: BP 118/60; BP 90/52; BP 92/48; BMI 25.0
[2023-07-26 10:14] LABS: Influenza A PCR NEGATIVE (Negative); Influenza B PCR NEGATIVE (Negative); Resp Syncy Virus RNA Qual PCR NEGATIVE (Negative); SARS COV2 PCR INHOUSE NEGATIVE (Negative)
== END 2023-07-25 08:29 | disposition home or self-care (01) ==
LOC: HO.LNP 08:28
PROVIDERS: Visit Provider Internal Medicine
DX: R05.9 Cough, unspecified (principal); J06.9 Acute upper respiratory infection, unspecified; Z11.52 Encounter for screening for COVID-19; Z20.828 Contact with and (suspected) exposure to other viral communicable diseases
CPT/HCPCS: 0241U

== ENCOUNTER 2023-07-25 12:27 | Outpatient (AMB) | payer MEDICARE, SELFPAY ==
[2023-04-25 12:31] VITALS: BP 118/60; BP 90/52; BP 92/48; BMI 25.0
--- NOTE | 2023-07-25 12:30 | A.OFFPC_ITS ---
Vital Signs 07/25/23 12:31 Height 5 ft Weight 115 lb BMI 22.5 BP 106/76 Blood Pressure Location Lt brachial Position Sitting Pulse 78 Pulse Source Pulse Oximeter Pulse Oximetry (%) 92 Oxygen Delivery Method Nasal Cannula Intake Visit Reasons: EP 4 Week F/U Intake Note: Pt is here today for 4 weeks follow up visit. Allergies gemifloxacin Allergy (Unknown, Verified 07/25/23 12:34) Rash montelukast [Singulair] Allergy (Unknown, Verified 07/25/23 12:34) mood swings Medication List - Last Reconciled 07/25/23 by Freida Yarbrough MD acetaminophen 650 mg PO Q6H PRN albuterol sulfate 90 mcg/actuation 2 puffs inhalation QID PRN albuterol sulfate 0.63 mg (3 mL) inhalation Q4-6H PRN amlodipine 2.5 mg PO DAILY apixaban (Eliquis) 5 mg PO BID ascorbic acid (vitamin C) 500 mg PO DAILY calcium carbonate (Calcium) 600 mg PO BID cetirizine (Zyrtec) 10 mg PO DAILY cholecalciferol (vitamin D3) (Vitamin D3) 50 mcg PO BEDTIME cyanocobalamin (vitamin B-12) 500 mcg sublingual DAILY ferrous sulfate 324 mg PO TUTHSA fluticasone propion-salmeterol 500-50 mcg/dose (Wixela Inhub) 1 inh inhalation Q12H fluticasone propionate 50 mcg/actuation 2 sprays intranasal BID furosemide 20 mg PO BID ipratropium-albuterol 0.5 mg-3 mg(2.5 mg base)/3 mL 3 mL inhalation Q8H levothyroxine 25 mcg PO DAILY@0600 magnesium 400 mg PO BEDTIME multivitamin (Daily Multi-Vitamin tablet) 1 tab PO DAILY omeprazole 20 mg PO DAILY peg 400-propylene glycol (PF) 0.4-0.3 % (Systane (PF)) 1 drp ophthalmic (eye) BID potassium chloride ER 20 mEq PO DAILY pravastatin 20 mg PO BEDTIME Tobacco use date assessed: 07/25/23 Fall risk assessment: No Falls in past year Last assessed Fall Risk: 07/25/23 Dental Screening Dental Screen Date: 07/25/23 Did you have a dental visit in the last 12 months?: Yes Did you have a dental problem in the last 6 months where you did not have access to dental care?: No Was dental information given to patient?: Patient has dentist HPI EP 4 Week F/U HPI Details Patient presents for the follow-up of COPD hypertension CHF. Patient reports having difficulty tolerating potassium supplement causing increased urination and body aches. Patient reports 3 days of upper respiratory infection with productive cough and greenish sputum no fever chills PND orthopnea or pleurisy. Patient has been using DuoNeb 3 times a day and denies wheezing. [facility] Medical History (Updated 06/06/23 @ 14:42 by Freida Yarbrough MD) HTN (hypertension) PAF (paroxysmal atrial fibrillation) COPD (chronic obstructive pulmonary disease) CHF (congestive heart failure) Chronic anticoagulation Renal failure Cardiac pacemaker in situ Rhabdomyolysis Pneumonia Hyponatremia Hyperlipemia Osteoporosis SSS (sick sinus syndrome) Meniere disease Sleep apnea Surgical History History of permanent cardiac pacemaker placement History of endoscopy History of hysterectomy History of cardiac cath Family History Father Lung cancer Mother COPD (chronic obstructive pulmonary disease) Social History Household Members: Spouse Housing: House Do you presently have visiting nurse or other home services: Yes (VNA and OT) Alcohol intake: never Patient Tobacco Use Status: Former Tobacco user Quit Date: 1989 Smoked: 30 +/- e-Cigarette/Vaping Use: Never Used Second Hand Smoke Exposure: No Advance Directives Date on File: 02/06/23 service: No Current occupational status: retired Cognitive needs: No Hearing needs: Yes Vision needs: Yes Questionnaire PHQ-9 Over the last 2 weeks, how often have you been bothered by any of the following problems? 1. Little interest or pleasure in doing things: not at all 2. Feeling down, depressed, or hopeless: not at all 3. Trouble falling or staying asleep, or sleeping too much: not at all 4. Feeling tired or having little energy: not at all 5. Poor appetite or overeating: not at all 6. Feeling bad about yourself - or that you are a failure or have let yourself or your family down: not at all 7. Trouble concentrating on things, such as reading the newspaper or watching television: not at all 8. Moving or speaking so slowly that other people could have noticed. Or the opposite - being so fidgety or restless that you have been moving around a lot more than usual: not at all 9. Thoughts that you would be better off or of hurting yourself in some way: not at all Total score: 0 Depression Screening Interpretation: Negative Depression Screening Done: Yes Source: Developed by Drs. Jerry Munoz, Karishma Melgar, Joaquin Ariza and colleagues, with an educational gaby from [employer]. Thrive Questionnaire Date Thrive assessed: 07/25/23 I am a: Patient What is your living situation today?: I have a steady place to live Within the past 12 months, did the food you bought not last and you didn't have the money to get more?: Never true Within the past 12 months, did you worry whether your food would run out before you got money to buy more?: Never true Do you have trouble paying for medicines?: No Do you have trouble getting transportation to medical appointments?: No Do you have trouble paying your heating and electricity bill?: No Do you have trouble taking care of your child, family member or friend?: No Do you have trouble with day-to-day activities such as bathing, preparing meals, shopping, managing finances, etc.?: No Are you currently unemployed and looking for a job?: No Are you interested in more education?: No Please select the resources that you would like help with: None AUDIT C Alcohol Use Questionnaire (AUDIT-C) 1. How often do you have a drink containing alcohol?: Never 3. How often do you have six or more drinks on one occasion?: Never Total Score: 0 YUDELKA-7 AMB Questionnaire YUDELKA-7 Date YUDELKA - 7 assessed: 07/25/23 Feeling nervous, anxious, or on edge: 0 = Not at all Not being able to stop or control worryin = Not at all Worrying too much about different things: 0 = Not at all Trouble relaxin = Not at all Being so restless that it is hard to sit still: 0 = Not at all Becoming easily annoyed or irritable: 0 = Not at all Feeling afraid as if something awful might happen: 0 = Not at all Total YUDELKA-7 score (0-4 normal; 5-9 mild; 10-14 moderate; 15-21 severe): 0 Source: Developed by Drs. Jerry Munoz, Karishma Melgar, Joaquin Ariza and colleagues, with an educational gaby from [employer]. Review of Systems Const All systems reviewed & are unremarkable except as noted in HPI and below Reports no additional complaints Eyes Reports no additional complaints ENT Reports no additional complaints Card Reports no additional complaints Resp Reports no additional complaints GI Reports no additional complaints Reports no additional complaints Physical exam (Primary Care) Vital Signs: Last Vital Signs Pulse 78 07/25/23 12:31 BP 106/76 07/25/23 12:31 Pulse Ox 92 07/25/23 12:31 Oxygen Delivery Method Nasal Cannula 07/25/23 12:31 BMI result Body Mass Index 22.5 Tobacco/Smoking Status: Tobacco use Status Tobacco use date assessed 07/25/23 07/25/23 12:42 Patient Tobacco Use Status Former Tobacco user 07/25/23 12:42 e-Cigarette/Vaping Use Never Used 07/25/23 12:42 PHQ-9: PHQ-9 Score PHQ-9: Total score 0 07/25/23 12:42 Depression Screening Interpretation: Negative Thrive Assessment: Date of Thrive Assessment Date Thrive assessed 07/25/23 07/25/23 12:42 Const General: no acute distress HENMT Throat: Yes posterior oropharynx normal Eyes General: appearance normal, both eyes and all related structures Resp Effort & Inspection: normal respiratory effort Auscultation: crackles and diminished lung sounds Cardio Rhythm: regular rhythm Heart sounds: S1 normal heart sound present and S2 normal heart sound present GI Palpation (GI): Soft to palpation Extrem Other: 1+ pitting edema bilaterally Assessment and Plan Assessment & Plan (1) HTN (hypertension): Code(s): I10 - Essential (primary) hypertension Plan: Continue current medications (2) CHF (congestive heart failure): Comment: echo 08/2019 PVC nl EF, pulmonary hypertension, repeat Echo 07/14 EF 25%, global hypokinesis, negative cardiac cath 07/14, 03/15 LVEF 50% [facility] [place](s): I50.9 - Heart failure, unspecified Plan: Continue current medications, patient will take potassium supplement every other day and continue 40 mg of furosemide daily BMP will be checked in 2 weeks (3) Pneumonitis: Code(s): J18.9 - Pneumonia, unspecified organism Plan: For recurrent upper respiratory infection cefuroxime 500 twice a day for 7 days is prescribed and supportive care discussed with the patient. Viral swab was obtained Orders: Orders Resp Pathogen Panel [place] [facility] [place] J18.9 - Pneumonia, unspecified organism Basic Metabolic Panel 2 Weeks I10 - Essential (primary) hypertension, I50.9 - Heart failure, unspecified Medications: New cefuroxime axetil 500 mg PO BID 14 tabs 0RF pravastatin 20 mg PO BEDTIME 90 tabs 3RF Refilled ipratropium-albuterol 0.5 mg-3 mg(2.5 mg base)/3 mL 3 mL inhalation Q8H 180 mL 3RF Coding Level of Care Code Est Pt Level 4 (72567) Diagnoses HTN (hypertension) I10 CHF (congestive heart failure) I50.9 Pneumonitis J18.9
[2023-07-25 12:31] VITALS: BP 106/76; PULSE 78; O2SAT 92; BMI 22.5
== END 2023-07-25 13:13 | disposition home or self-care (01) ==
PROVIDERS: PCP Internal Medicine; Visit Provider Internal Medicine
DX: I11.0 Hypertensive heart disease with heart failure (principal); I50.9 Heart failure, unspecified; J18.9 Pneumonia, unspecified organism; J44.9 Chronic obstructive pulmonary disease, unspecified
CPT/HCPCS: 99214

== ENCOUNTER 2023-08-12 10:43 | Outpatient (REF) | payer MEDICARE, SELFPAY ==
[2023-04-25 12:31] VITALS: BP 118/60; BP 90/52; BP 92/48; BMI 25.0
[2023-08-12 12:00] LABS: Anion Gap 14 (12-20); Blood Urea Nitrogen 13 mg/dL (9-16); Calcium 9.5 mg/dL (8.4-10.2); Carbon Dioxide 25 mmol/L (22-29); Chloride 104 mmol/L (96-108); Estimated Glomerular Filt Rate > 60; Glucose Random 92 mg/dL (60-115); Potassium 3.5 mmol/L (3.3-5.1); Sodium 139 mmol/L (135-145)
== END 2023-08-12 10:44 | disposition home or self-care (01) ==
LOC: HO.HMGCLDS 10:43
PROVIDERS: PCP Internal Medicine; Visit Provider Internal Medicine
DX: I11.0 Hypertensive heart disease with heart failure (principal); I50.9 Heart failure, unspecified
CPT/HCPCS: 36415; 80048

== ENCOUNTER 2023-08-22 08:50 | Outpatient (AMB) | payer MEDICARE, SELFPAY ==
[2023-04-25 12:31] VITALS: BP 118/60; BP 90/52; BP 92/48; BMI 25.0
[2023-08-22 08:53] VITALS: BP 104/72; PULSE 60; BMI 23.0
--- NOTE | 2023-08-22 08:53 | MHC.OFFVIS ---
Intake Vital Signs 08/22/23 08:53 Height 5 ft Weight 117 lb 11.629 oz BMI 23.0 BP 104/72 Blood Pressure Location Lt brachial Position Sitting Pulse 60 Pulse Source Pulse Oximeter Intake Visit Reasons: 3 mnth f/up Cat Breeder Required: No Acls Nurse: Acls Nurse Present Allergies gemifloxacin Allergy (Unknown, Verified 08/22/23 08:56) Rash montelukast [Singulair] Allergy (Unknown, Verified 08/22/23 08:56) mood swings Medication List - Last Reconciled 08/22/23 by GABRIEL Alfredo acetaminophen 650 mg PO Q6H PRN albuterol sulfate 90 mcg/actuation 2 puffs inhalation QID PRN albuterol sulfate 0.63 mg (3 mL) inhalation Q4-6H PRN amlodipine 2.5 mg PO DAILY apixaban (Eliquis) 5 mg PO BID ascorbic acid (vitamin C) 500 mg PO DAILY calcium carbonate (Calcium) 600 mg PO BID cefuroxime axetil 500 mg PO BID cetirizine (Zyrtec) 10 mg PO DAILY cholecalciferol (vitamin D3) (Vitamin D3) 50 mcg PO BEDTIME cyanocobalamin (vitamin B-12) 500 mcg sublingual DAILY ferrous sulfate 324 mg PO TUTHSA fluticasone propion-salmeterol 500-50 mcg/dose (Wixela Inhub) 1 inh inhalation Q12H fluticasone propionate 50 mcg/actuation 2 sprays intranasal BID furosemide 20 mg PO BID ipratropium-albuterol 0.5 mg-3 mg(2.5 mg base)/3 mL 3 mL inhalation Q8H levothyroxine 25 mcg PO DAILY@0600 magnesium 400 mg PO BEDTIME multivitamin (Daily Multi-Vitamin tablet) 1 tab PO DAILY omeprazole 20 mg PO DAILY peg 400-propylene glycol (PF) 0.4-0.3 % (Systane (PF)) 1 drp ophthalmic (eye) BID potassium chloride ER 20 mEq PO DAILY pravastatin 20 mg PO BEDTIME HPI 3 mnth f/up HPI Details Shubham is a 78-year-old female with past medical history of hypertension, hyperlipidemia, advanced COPD, oxygen dependent, Congestive heart failure, nonischemic cardiomyopathy with normalized EF, atrial fibrillation, sick sinus syndrome, pacemaker who presents for follow-up. Today she reports that she has her usual chronic shortness of breath with activity. She wears oxygen continually. No chest discomfort at rest or with activity. No PND, orthopnea or edema. No heart palpitations, lightheadedness, presyncope, syncope, falls. Taking meds as directed. Significant other present. Has remote pacemaker monitor at bedside. [facility] Medical History (Updated 08/22/23 @ 10:55 by Loretta Camargo NP-C) Cardiac pacemaker in situ HTN (hypertension) PAF (paroxysmal atrial fibrillation) COPD (chronic obstructive pulmonary disease) CHF (congestive heart failure) Chronic anticoagulation Renal failure Rhabdomyolysis Pneumonia Hyponatremia Hyperlipemia Osteoporosis SSS (sick sinus syndrome) Meniere disease Sleep apnea Surgical History History of permanent cardiac pacemaker placement History of endoscopy History of hysterectomy History of cardiac cath Family History Father Lung cancer Mother COPD (chronic obstructive pulmonary disease) Social History Household Members: Spouse Housing: House Do you presently have visiting nurse or other home services: Yes (VNA and OT) Alcohol intake: never Patient Tobacco Use Status: Former Tobacco user Quit Date: 1989 Smoked: 30 +/- e-Cigarette/Vaping Use: Never Used Second Hand Smoke Exposure: No Advance Directives Date on File: 02/06/23 service: No Current occupational status: retired Cognitive needs: No Hearing needs: Yes Vision needs: Yes Review of Systems Const All systems reviewed & are unremarkable except as noted in HPI and below Reports fatigue ENT Denies dizziness Card Denies chest pain, Denies chest pain at rest, Denies chest pain with activity, Denies rapid heart rate, Denies pedal edema, Denies edema, Denies leg edema, Denies lightheadedness, Denies palpitations, Reports dyspnea, Reports dyspnea on exertion and Reports orthopnea Resp Details: wears O2 continually Denies cough, Reports dyspnea and Reports dyspnea on exertion GI Denies hematochezia and Denies change in stool character Musc Details: uses walker for stability Denies abnormal gait, Denies limited range of motion, Denies muscle cramps, Denies muscle weakness, Denies numbness, Denies radiating pain into limb, Denies stiffness and Denies tingling Neuro Denies abnormal gait, Denies dizziness, Denies numbness and Denies tingling Endo Reports fatigue and Denies palpitations Physical Exam Vital Signs: Last Vital Signs Pulse 60 08/22/23 08:53 BP 104/72 08/22/23 08:53 BMI result Body Mass Index 23.0 Const Other: frail elderly female wearing O2 with nasal cannula General: cooperative, comfortable and no acute distress Orientation/consciousness: patient oriented x3 Neck Neck: Yes normal visual inspection and Yes no JVD Resp Effort & Inspection: normal respiratory effort Auscultation: clear to auscultation bilaterally, no rales, no rhonchi and wheezes (few expiratory) Cardio Jugular venous distension: no JVD Rate: regular rate Rhythm: regular rhythm Heart sounds: S1 normal heart sound present, S2 normal heart sound present, no murmurs and no rubs Neuro General: patient oriented x3 Extrem General: Yes normal to inspection and No no pedal edema Psych Appearance: grossly normal Mental Status: mental status grossly normal Speech and movement: Normal speech and movement present Assessment & Plan Assessment & Plan (1) CHF (congestive heart failure): Comment: echo 08/2019 PVC nl EF, pulmonary hypertension, repeat Echo 07/14 EF 25%, global hypokinesis, negative cardiac cath 07/14, 03/15 LVEF 50% [facility] [place] [place] Code(s): I50.9 - Heart failure, unspecified Plan: History of systolic Congestive heart failure. EF had been as low as 25%-30% 06/2022. Last echo 02/2023 showed normalized EF 60-65%. On exam she has no clinical signs of decompensated heart failure. She did have faint wheezing in the left lung. She has a history of chronic COPD and is oxygen dependent. She tells me her breathing is stable. Signs and symptoms of heart failure reviewed with her. Continue low-dose Lasix. Cardiology follow-up in 3 months, sooner if needed (2) PAF (paroxysmal atrial fibrillation): Comment: 10/13 Holter frequent APCs Code(s): I48.0 - Paroxysmal atrial fibrillation Plan: Newer History of paroxysmal atrial fibrillation. She denies any heart palpitations. Pulse is regular on examination today. She has not on any rate slowing agents. She is on Eliquis 5 mg b.i.d. for anticoagulation. Labs done 08/12/2023 showed creatinine 0.8. She did have a small nosebleed recently that was easily controlled. No other signs of bleeding. no med changes (3) SSS (sick sinus syndrome): Comment: s/p replaced pacemaker 04/15 Code(s): I49.5 - Sick sinus syndrome Plan: Prior single lead pacemaker. Underwent generator change with right atrial lead placement 03/17/2023. Device functioning normally on last office interrogation 05/15/2023. Pacemaker site is benign at this time. Remote monitoring in use, currently not connecting. Patient will check monitor at home and call [place] if needed. Next office interrogation due in 3 months. (4) HTN (hypertension): Code(s): I10 - Essential (primary) hypertension Plan: Well controlled at present. No med changes made (5) Cardiac pacemaker in situ: Code(s): Z95.0 - Presence of cardiac pacemaker Plan: [facility] dual-chamber pacemaker in place (6) COPD (chronic obstructive pulmonary disease): Comment: O2 dependent, Dr. Rhoades Code(s): J44.9 - Chronic obstructive pulmonary disease, unspecified Plan: Stable at present. Oxygen dependent. Plan Time spent on chart review, documentation, interview and assessment Coding Level of Care Code Est Pt Level 4 (54795) Diagnoses CHF (congestive heart failure) I50.9 PAF (paroxysmal atrial fibrillation) I48.0 SSS (sick sinus syndrome) I49.5 HTN (hypertension) I10 Cardiac pacemaker in situ Z95.0 COPD (chronic obstructive pulmonary disease) J44.9 Time Spent (min) 28
== END 2023-08-22 09:36 | disposition home or self-care (01) ==
PROVIDERS: PCP Internal Medicine; Visit Provider Nurse Practitioner Family
DX: I50.9 Heart failure, unspecified (principal); I48.0 Paroxysmal atrial fibrillation; I49.5 Sick sinus syndrome; I10 Essential (primary) hypertension; Z95.0 Presence of cardiac pacemaker; J44.9 Chronic obstructive pulmonary disease, unspecified
CPT/HCPCS: 99214

== ENCOUNTER → 2023-08-22 08:50 | Outpatient (BNVA) | payer MEDICARE, SELFPAY ==
[2023-04-25 12:31] VITALS: BP 118/60; BP 90/52; BP 92/48; BMI 25.0
== END ==
PROVIDERS: PCP Internal Medicine; Visit Provider Nurse Practitioner Family
DX: I11.0 Hypertensive heart disease with heart failure (principal); I50.20 Unspecified systolic (congestive) heart failure; I48.0 Paroxysmal atrial fibrillation; I49.5 Sick sinus syndrome; J44.9 Chronic obstructive pulmonary disease, unspecified; Z79.01 Long term (current) use of anticoagulants; Z79.899 Other long term (current) drug therapy; Z95.0 Presence of cardiac pacemaker; Z99.81 Dependence on supplemental oxygen
CPT/HCPCS: 99212

== ENCOUNTER 2023-08-24 11:45 | Outpatient (REF) | payer MEDICARE, SELFPAY ==
[2023-08-22 09:33] VITALS: BP 118/60; BP 90/52; BP 92/48; BMI 25.0
[2023-08-24 13:35] LABS: Anion Gap 14 (12-20); Blood Urea Nitrogen 11 mg/dL (9-16); Calcium 9.7 mg/dL (8.4-10.2); Carbon Dioxide 24 mmol/L (22-29); Chloride 103 mmol/L (96-108); Estimated Glomerular Filt Rate > 60; Glucose Random 97 mg/dL (60-115); Potassium 3.8 mmol/L (3.3-5.1); Sodium 137 mmol/L (135-145)
== END 2023-08-24 11:46 | disposition home or self-care (01) ==
LOC: HO.HMGCLDS 11:45
PROVIDERS: PCP Internal Medicine; Visit Provider Internal Medicine
DX: E87.6 Hypokalemia (principal)
CPT/HCPCS: 36415; 80048

== ENCOUNTER 2023-08-26 13:30 | Outpatient (REF) | payer MEDICARE, SELFPAY ==
[2023-08-22 09:33] VITALS: BP 118/60; BP 90/52; BP 92/48; BMI 25.0
[2023-08-26 15:34] LABS: Appearance Urine Clear; Color Urine Yellow; Glucose Urine UA Negative (Negative); Leukocyte Esterase Urine Small (1+) (Negative); Nitrite Urine Negative (Negative); PH 6.5 (5.0-9.0); UMIC TRIGGER UACC YES; Urine Blood Negative (Negative); Urine Ketones Negative (Negative); Urine Protein Negative (Neg-Trace)
[2023-08-26 15:50] LABS: Bacteria Urine None Seen (None Seen); Hyaline Casts Urine 0-2 /LPF (0-2); RBC Urine 0-2 /HPF (0-2); Squamous Epithelial Cell Urine 0-2 /HPF (0-2); UACC Culture Trigger YES; WBC Urine 0-5 /HPF (0-5)
== END 2023-08-26 13:31 | disposition home or self-care (01) ==
LOC: HO.HMGCLNP 13:30
PROVIDERS: PCP Internal Medicine; Visit Provider Internal Medicine
DX: R30.0 Dysuria (principal)
CPT/HCPCS: 81001; 87086

== ENCOUNTER → 2023-08-29 23:59 | Outpatient (BNV) | payer MEDICARE, SELFPAY ==
[2023-08-22 09:33] VITALS: BP 118/60; BP 90/52; BP 92/48; BMI 25.0
--- NOTE | 2023-09-02 21:08 | MHC.OFFVIS ---
Intake Intake Visit Reasons: Remote Device Check- [facility] Allergies gemifloxacin Allergy (Unknown, Verified 08/22/23 08:56) Rash montelukast [Singulair] Allergy (Unknown, Verified 08/22/23 08:56) mood swings [facility] Medical History (Updated 08/22/23 @ 10:55 by Loretta Camargo, MARCY-C) Cardiac pacemaker in situ HTN (hypertension) PAF (paroxysmal atrial fibrillation) COPD (chronic obstructive pulmonary disease) CHF (congestive heart failure) Chronic anticoagulation Renal failure Rhabdomyolysis Pneumonia Hyponatremia Hyperlipemia Osteoporosis SSS (sick sinus syndrome) Meniere disease Sleep apnea Surgical History History of permanent cardiac pacemaker placement History of endoscopy History of hysterectomy History of cardiac cath Family History Father Lung cancer Mother COPD (chronic obstructive pulmonary disease) Social History Household Members: Spouse Housing: House Do you presently have visiting nurse or other home services: Yes (VNA and OT) Alcohol intake: never Patient Tobacco Use Status: Former Tobacco user Quit Date: 1989 Years Smoked: 30 +/- e-Cigarette/Vaping Use: Never Used Second Hand Smoke Exposure: No Advance Directives Date on File: 02/06/23 service: No Current occupational status: retired Cognitive needs: No Hearing needs: Yes Vision needs: Yes Office Procedures Cardiac Device Check Cardiac Device Check Details: PPM Good battery life. Episodes of PMT noted. [id number] Cardiac Device Interrogation, pacemaker Procedure code (CPT) selection complete Assessment & Plan Assessment & Plan (1) Cardiac pacemaker in situ: Code(s): Z95.0 - Presence of cardiac pacemaker Plan: Orders: Orders AMB Cardiac Device Follow-up 08/29/23 Z95.0 - Presence of cardiac pacemaker Coding Level of Care Code Procedure Only Diagnoses Cardiac pacemaker in situ Z95.0 CPT Codes Cardiac Device Check - Cardiac Device 12: [id number] Cardiac Device Interrogation, pacemaker ([id number])
== END ==
PROVIDERS: PCP Internal Medicine; Visit Provider Internal Medicine Cardiovascular Disease
DX: I48.0 Paroxysmal atrial fibrillation (principal); Z95.0 Presence of cardiac pacemaker
CPT/HCPCS: 93294

== ENCOUNTER 2023-09-25 15:04 | Outpatient (AMB) | payer MEDICARE, SELFPAY ==
[2023-09-05 08:26] VITALS: BP 118/60; BP 90/52; BP 92/48; BMI 25.0
--- NOTE | 2023-09-25 15:19 | A.OFFVIS_ITS ---
Intake Vital Signs 09/25/23 15:20 Height 5 ft Weight 115 lb 8.356 oz BMI 22.6 BP 110/50 L Blood Pressure Location Lt brachial Position Sitting Pulse 63 Pulse Source Pulse Oximeter Intake Visit Reasons: fu visit w [facility]am check Intake Note: pt its here for a f/up w [facility] check, pt states that she its feeling fine. Hat Marker Required: No Accompanied by: Self / Same As Patient Allergies gemifloxacin Allergy (Unknown, Verified 08/22/23 08:56) Rash montelukast [Singulair] Allergy (Unknown, Verified 08/22/23 08:56) mood swings Medication List - Last Reconciled 09/25/23 by Shae Vogel NP acetaminophen 650 mg PO Q6H PRN albuterol sulfate 90 mcg/actuation 2 puffs inhalation QID PRN albuterol sulfate 0.63 mg (3 mL) inhalation Q4-6H PRN amlodipine 2.5 mg PO DAILY apixaban (Eliquis) 5 mg PO BID calcium carbonate (Calcium) 600 mg PO BID cetirizine (Zyrtec) 10 mg PO DAILY ferrous sulfate 324 mg PO TUTHSA fluticasone propionate 50 mcg/actuation 2 sprays intranasal BID furosemide 20 mg PO BID ipratropium-albuterol 0.5 mg-3 mg(2.5 mg base)/3 mL 3 mL inhalation Q8H levothyroxine 25 mcg PO DAILY@0600 magnesium 400 mg PO BEDTIME multivitamin (Daily Multi-Vitamin tablet) 1 tab PO DAILY omeprazole 20 mg PO DAILY peg 400-propylene glycol (PF) 0.4-0.3 % (Systane (PF)) 1 drp ophthalmic (eye) BID potassium chloride ER 20 mEq PO DAILY pravastatin 20 mg PO BEDTIME HPI HPI Comments History of Present Illness Details 78-year-old female today for a follow-up . She has a medical history of hypertension. hyperlipidemia, COPD with oxygen use, paroxysmal atrial fibrillation, Congestive Heart Failure, and sick sinus syndrome with permanent pacemaker placement. She reports she has been doing well. She does her ADLs wtihout difficulties and going for walks and does exercises as often as she can. She avoids salt and her daily weights have been stable. [facility] Medical History Cardiac pacemaker in situ HTN (hypertension) PAF (paroxysmal atrial fibrillation) COPD (chronic obstructive pulmonary disease) CHF (congestive heart failure) Chronic anticoagulation Renal failure Rhabdomyolysis Pneumonia Hyponatremia Hyperlipemia Osteoporosis SSS (sick sinus syndrome) Meniere disease Sleep apnea Surgical History History of permanent cardiac pacemaker placement History of endoscopy History of hysterectomy History of cardiac cath Family History Father Lung cancer Mother COPD (chronic obstructive pulmonary disease) Social History Household Members: Spouse Housing: House Do you presently have visiting nurse or other home services: Yes (VNA and OT) Alcohol intake: never Patient Tobacco Use Status: Former Tobacco user Quit Date: 1989 Smoked: 30 +/- e-Cigarette/Vaping Use: Never Used Second Hand Smoke Exposure: No Advance Directives Date on File: 02/06/23 service: No Current occupational status: retired Cognitive needs: No Hearing needs: Yes Vision needs: Yes Review of Systems Const Denies chills, Denies fatigue, Denies fever(s), Denies frequent falls, Denies weakness, Denies weight gain and Denies weight loss ENT Denies dizziness Card Denies chest pain, Denies chest pain with activity, Denies syncope, Denies rapid heart rate, Denies pedal edema, Denies irregular heart rhythm, Denies leg edema, Denies lightheadedness, Denies palpitations, Denies dyspnea, Denies dyspnea on exertion, Denies orthopnea and Denies other (LOC) Resp Denies cough, Denies dyspnea and Denies dyspnea on exertion GI Denies hematochezia and Denies change in bowel habits Musc Denies abnormal gait, Denies arthralgias, Denies muscle weakness, Denies numbness, Denies radiating pain into limb and Denies tingling Neuro Denies abnormal gait, Denies dizziness, Denies syncope, Denies frequent falls, Denies numbness, Denies tingling and Denies weakness Endo Denies fatigue and Denies palpitations Physical Exam Vital Signs: Last Vital Signs Pulse 63 09/25/23 15:20 BP 110/50 L 09/25/23 15:20 BMI result Body Mass Index 22.6 Const General: healthy appearing and no acute distress Orientation/consciousness: patient oriented x3 HEENT Head: Yes normal to inspection Eyes General: appearance normal, both eyes and all related structures Neck Neck: Yes normal visual inspection Chest Chest palpation & inspection: normal inspection of the chest Resp Other: Oxygen supplementation. Effort & Inspection: normal respiratory effort Auscultation: clear to auscultation bilaterally Cardio Jugular venous distension: no JVD Palpation: normal PMI Rate: regular rate Rhythm: regular rhythm Heart sounds: S1 normal heart sound present, S2 normal heart sound present, no click, no gallops, no murmurs and no rubs GI Inspection: Yes normal to inspection Palpation (GI): Soft to palpation Skin General skin exam: no rashes or lesions noted Neuro General: patient oriented x3 Extrem General: Yes normal to inspection Psych Appearance: grossly normal Office Procedures Cardiac Device Check Cardiac Device Check Details: [facility]am Permanent pacemaker. battery life 9.2-10.2 years. A paced 41%. V paced 22%. No alerts. Stable at time of interrogation. [id number] Device Interrogation, pacemaker Procedure code (CPT) selection complete Assessment & Plan Assessment & Plan (1) Cardiac pacemaker in situ: Code(s): Z95.0 - Presence of cardiac pacemaker Plan: S/P pacemaker generator change 02/2023. In office check in 6 months. Remote every 3 months. (2) HTN (hypertension): Code(s): I10 - Essential (primary) hypertension Plan: Blood pressure stable - no changes. (3) PAF (paroxysmal atrial fibrillation): Comment: 10/13 Holter frequent APCs Code(s): I48.0 - Paroxysmal atrial fibrillation Plan: Reports no episodes of atrial fibrillation. No alerts on pacemaker. On eliquis with no bleeding concerns. (4) SSS (sick sinus syndrome): Comment: s/p replaced pacemaker 04/15 Code(s): I49.5 - Sick sinus syndrome Plan: Device functioning normal on interrogation. No alerts at this time. Remote monitoring in use and connecting. (5) CHF (congestive heart failure): Comment: echo 08/2019 PVC nl EF, pulmonary hypertension, repeat Echo 07/14 EF 25%, global hypokinesis, negative cardiac cath 07/14, 03/15 LVEF 50% [facility] [place] Code(s): I50.9 - Heart failure, unspecified Plan: Ejection fraction had been as low as 25%-30% in 06/2022. Last echo 02/2023 showed a normalized ejection fraction of 60-65%. On exam she has no clinical signs of fluid overload, Does daily weights and avoids salt. On Lasix. Coding Level of Care Code Est Pt Level 4 (12621) Diagnoses Cardiac pacemaker in situ Z95.0 HTN (hypertension) I10 PAF (paroxysmal atrial fibrillation) I48.0 SSS (sick sinus syndrome) I49.5 CHF (congestive heart failure) I50.9 CPT Codes Cardiac Device Check - Cardiac Device 8: [id number] Device Interrogation, pacemaker ([id number])
[2023-09-25 15:20] VITALS: BP 110/50; PULSE 63; BMI 22.6
== END 2023-09-25 16:04 | disposition home or self-care (01) ==
PROVIDERS: PCP Internal Medicine; Visit Provider Internal Medicine Cardiovascular Disease
DX: I48.0 Paroxysmal atrial fibrillation (principal); Z95.0 Presence of cardiac pacemaker
CPT/HCPCS: 93288; 99214

== ENCOUNTER → 2023-09-25 15:04 | Outpatient (BNVA) | payer MEDICARE, SELFPAY ==
[2023-09-05 08:26] VITALS: BP 118/60; BP 90/52; BP 92/48; BMI 25.0
== END ==
PROVIDERS: PCP Internal Medicine; Visit Provider Internal Medicine Cardiovascular Disease
DX: Z45.018 Encounter for adjustment and management of other part of cardiac pacemaker (principal); I48.0 Paroxysmal atrial fibrillation; I10 Essential (primary) hypertension
CPT/HCPCS: 99212

== ENCOUNTER 2023-10-06 09:28 | Outpatient (AMB) | payer MEDICARE, SELFPAY ==
[2023-09-05 08:26] VITALS: BP 118/60; BP 90/52; BP 92/48; BMI 25.0
[2023-10-06 09:29] VITALS: BP 104/62; PULSE 61; O2SAT 92; BMI 21.9
--- NOTE | 2023-10-06 09:29 | A.OFFPC_ITS ---
Vital Signs 10/06/23 09:29 Height 5 ft Weight 112 lb BMI 21.9 BP 104/62 Blood Pressure Location Lt brachial Position Sitting Pulse 61 Pulse Source Pulse Oximeter Pulse Oximetry (%) 92 Oxygen Delivery Method Nasal Cannula Intake Visit Reasons: 2 month fu Intake Note: Pt is here today for 2 months follow up visit. Allergies gemifloxacin Allergy (Unknown, Verified 10/06/23 09:29) Rash montelukast [Singulair] Allergy (Unknown, Verified 10/06/23 09:29) mood swings Medication List - Last Reconciled 10/06/23 by Freida Yarbrough MD acetaminophen 650 mg PO Q6H PRN albuterol sulfate 90 mcg/actuation 2 puffs inhalation QID PRN albuterol sulfate 0.63 mg (3 mL) inhalation Q4-6H PRN amlodipine 2.5 mg PO DAILY apixaban (Eliquis) 5 mg PO BID calcium carbonate (Calcium) 600 mg PO BID cetirizine (Zyrtec) 10 mg PO DAILY ferrous sulfate 324 mg PO TUTHSA fluticasone propionate 50 mcg/actuation 2 sprays intranasal BID fluticasone propionate 50 mcg/actuation 1 inh inhalation BID furosemide 20 mg PO BID ipratropium-albuterol 0.5 mg-3 mg(2.5 mg base)/3 mL 3 mL inhalation Q8H levothyroxine 25 mcg PO DAILY@0600 magnesium 400 mg PO BEDTIME multivitamin (Daily Multi-Vitamin tablet) 1 tab PO DAILY omeprazole 20 mg PO DAILY peg 400-propylene glycol (PF) 0.4-0.3 % (Systane (PF)) 1 drp ophthalmic (eye) BID potassium chloride ER 20 mEq PO DAILY pravastatin 20 mg PO BEDTIME zoledronic soox-hqwyvckm-nkfct 5 mg/100 mL (Reclast) 1 ea IV ONCE Tobacco use date assessed: 10/06/23 HPI 2 month fu HPI Details Patient presents for the follow-up of O2 dependent COPD hypertension paroxysmal AFib right-sided heart failure stable on current medications. P atient reports stomach upset and diarrhea from potassium supplement slightly improved on lower dose. [facility] Medical History (Updated 10/06/23 @ 10:23 by Freida Yarbrough MD) Osteoporosis Cardiac pacemaker in situ HTN (hypertension) PAF (paroxysmal atrial fibrillation) COPD (chronic obstructive pulmonary disease) CHF (congestive heart failure) Chronic anticoagulation Renal failure Rhabdomyolysis Pneumonia Hyponatremia Hyperlipemia SSS (sick sinus syndrome) Meniere disease Sleep apnea Surgical History History of permanent cardiac pacemaker placement History of endoscopy History of hysterectomy History of cardiac cath Family History Father Lung cancer Mother COPD (chronic obstructive pulmonary disease) Social History Household Members: Spouse Housing: House Do you presently have visiting nurse or other home services: Yes (VNA and OT) Alcohol intake: never Patient Tobacco Use Status: Former Tobacco user Quit Date: 1989 Smoked: 30 +/- e-Cigarette/Vaping Use: Never Used Second Hand Smoke Exposure: No Advance Directives Date on File: 02/06/23 service: No Current occupational status: retired Cognitive needs: No Hearing needs: Yes Vision needs: Yes Questionnaire Thrive Questionnaire Date Thrive assessed: 07/25/23 YUDELKA-7 AMB Questionnaire YUDELKA-7 Date YUDELKA - 7 assessed: 07/25/23 Source: Developed by Drs. Jerry Munoz, Karishma Melgar, Joaquin Ariza and colleagues, with an educational gaby from [employer]. Review of Systems Const All systems reviewed & are unremarkable except as noted in HPI and below Reports no additional complaints Eyes Reports no additional complaints ENT Reports no additional complaints Card Reports no additional complaints Resp Reports no additional complaints GI Reports no additional complaints Reports no additional complaints Physical exam (Primary Care) Vital Signs: Last Vital Signs Pulse 61 10/06/23 09:29 BP 104/62 10/06/23 09:29 Pulse Ox 92 10/06/23 09:29 Oxygen Delivery Method Nasal Cannula 10/06/23 09:29 BMI result Body Mass Index 21.9 Tobacco/Smoking Status: Tobacco use Status Tobacco use date assessed 10/06/23 10/06/23 09:37 Patient Tobacco Use Status Former Tobacco user 10/06/23 09:30 e-Cigarette/Vaping Use Never Used 10/06/23 09:30 Thrive Assessment: Date of Thrive Assessment Date Thrive assessed 07/25/23 10/06/23 09:30 Const General: no acute distress HENMT Head: Yes normal to inspection Throat: Yes posterior oropharynx normal Neck Neck: Yes supple Resp Effort & Inspection: normal respiratory effort Auscultation: diminished lung sounds Cardio Rhythm: regular rhythm Heart sounds: S1 normal heart sound present and S2 normal heart sound present Extrem Other: TRACE PITTING EDEMA BILATERALLY Assessment and Plan Assessment & Plan (1) HTN (hypertension): Code(s): I10 - Essential (primary) hypertension Plan: Continue amlodipine (2) PAF (paroxysmal atrial fibrillation): Comment: 10/13 Holter frequent APCs, s/p pacemaker for SSS Code(s): I48.0 - Paroxysmal atrial fibrillation Plan: Continue Eliquis (3) COPD (chronic obstructive pulmonary disease): Comment: O2 dependent, Dr. Rhoades Code(s): J44.9 - Chronic obstructive pulmonary disease, unspecified Plan: Continue supplemental O2, Wixela 500/ 50, patient was advised to decrease the dose to 250 but she declined, Duoneb tid, follow-up with pulmonology, referred to pulmonary rehab at [facility] (4) CHF (congestive heart failure): Comment: echo 08/2019 PVC nl EF, pulmonary hypertension, repeat Echo 07/14 EF 25%, global hypokinesis, negative cardiac cath 07/14, 03/15 LVEF 50% [facility] mod Pul HTN, used to take ACEI 02/12 dc d by pul? Code(s): I50.9 - Heart failure, unspecified Plan: Furosemide will be decreased to 20 mg a day and patient will monitor her weight daily and take an extra 20 mg if the weight increases by 2 lb. Comprehensive panel will be checked in 1 week and if potassium level is normal supplemental potassium will be discontinue it. Patient was advised to eat potassium rich foods. We will discuss restarting ARB or TANNER inhibitor. Follow-up in 2 months (5) Osteoporosis: Comment: Reclast inj 2021, 2022 at [facility], DEXA 07/15 IMPROVED, Reclast ordered 10/14 Code(s): M81.0 - Age-related osteoporosis without current pathological fracture Plan: Continue vitamin-D supplement, patient is due for Reclast infusion at [facility] (6) Vitamin D deficiency: Code(s): E55.9 - Vitamin D deficiency, unspecified Plan: Continue supplement Orders: Orders Pulmonary Rehab Today J44.9 - Chronic obstructive pulmonary disease, unspecified Comprehensive [place]. Panel Fast Today I10 - Essential (primary) hypertension, I48.0 - Paroxysmal atrial fibrillation, I50.9 - Heart failure, unspecified, J44.9 - Chronic obstructive pulmonary disease, unspecified, M81.0 - Age-related osteoporosis without current pathological fracture Complete Blood Count Auto Diff Today I10 - Essential (primary) hypertension, I48.0 - Paroxysmal atrial fibrillation, I50.9 - Heart failure, unspecified, J44.9 - Chronic obstructive pulmonary disease, unspecified, M81.0 - Age-related osteoporosis without current pathological fracture Lipid Panel Today I10 - Essential (primary) hypertension, I48.0 - Paroxysmal atrial fibrillation, I50.9 - Heart failure, unspecified, J44.9 - Chronic obstructive pulmonary disease, unspecified, M81.0 - Age-related osteoporosis without current pathological fracture Vitamin D 25-OH Total Today E55.9 - Vitamin D deficiency, unspecified, I10 - Essential (primary) hypertension, I48.0 - Paroxysmal atrial fibrillation, I50.9 - Heart failure, unspecified, J44.9 - Chronic obstructive pulmonary disease, unspecified, M81.0 - Age-related osteoporosis without current pathological fracture Vitamin B12 and Folate Today I10 - Essential (primary) hypertension, I48.0 - Paroxysmal atrial fibrillation, I50.9 - Heart failure, unspecified, J44.9 - Chronic obstructive pulmonary disease, unspecified, M81.0 - Age-related osteoporosis without current pathological fracture Medications: New zoledronic ixzq-tdyonezw-uzcsv 5 mg/100 mL (Reclast) 1 ea IV ONCE 100 mL 0RF zoledronic clmf-oosftadj-ijgpq 5 mg/100 mL (Reclast) 1 ea IV ONCE 100 mL 0RF zoledronic bzik-jyqsycxa-xllcs 5 mg/100 mL (Reclast) 1 ea IV ONCE 100 mL 0RF Wixela Inhub 500-50 mcg/dose (fluticasone propion-salmeterol) 1 inh inhalation BID 60 ea 4RF NS Refilled potassium chloride ER 20 mEq PO DAILY 90 tabs 1RF Coding Level of Care Code Est Pt Level 4 (44133) Diagnoses HTN (hypertension) I10 PAF (paroxysmal atrial fibrillation) I48.0 COPD (chronic obstructive pulmonary disease) J44.9 CHF (congestive heart failure) I50.9 Osteoporosis M81.0 Vitamin D deficiency E55.9
== END 2023-10-06 10:27 | disposition home or self-care (01) ==
PROVIDERS: PCP Internal Medicine; Visit Provider Internal Medicine
DX: I11.0 Hypertensive heart disease with heart failure (principal); I48.0 Paroxysmal atrial fibrillation; J44.9 Chronic obstructive pulmonary disease, unspecified; I50.9 Heart failure, unspecified; M81.0 Age-related osteoporosis without current pathological fracture; E55.9 Vitamin D deficiency, unspecified
CPT/HCPCS: 99214

== ENCOUNTER 2023-10-11 09:47 | Outpatient (REF) | payer MEDICARE, SELFPAY ==
[2023-09-05 08:26] VITALS: BP 118/60; BP 90/52; BP 92/48; BMI 25.0
[2023-10-11 13:24] LABS: MANUAL DIFF FLAG NO
[2023-10-11 13:38] LABS: Basophils Absolute Auto 0.1 X10*3/uL (0.0-0.2); Basophils Percent Auto 0.7 % (0-2); Eosinophils Absolute Auto 0.1 X10*3/uL (0.0-0.4); Hematocrit 41.6 % (37.0-47.0); Hemoglobin 13.6 g/dl (12.0-16.0); Imm Gran Abs Auto 0.02 X10*3/uL (0.00-0.03); Imm Gran Pct Auto 0.3 % (0.0-0.4); Lymphocytes Absolute Auto 1.2 X10*3/uL (1.2-4.9); Lymphocytes Percent Auto 17.2 % (20-40); Mean Corpuscular HGB Conc 32.7 g/dl (31.0-35.0); Mean Corpuscular Hemoglobin 32.1 pg (27.0-33.0); Mean Corpuscular Volume 98.1 fL (80.0-98.0); Mean Platelet Volume 10.3 fL (9.4-12.3); Monocytes Absolute Auto 0.4 X10*3/uL (0.1-1.2); Monocytes Percent Auto 6.3 % (2-11); Neutrophils Absolute Auto 5.1 x10*3/uL (2.0-8.3); Neutrophils Percent Auto 74.5 % (45-73); Platelet Count 277 X10*3/uL (160-400); Red Blood Count 4.24 X10*6/uL (4.20-5.50); Red Cell Distribution Width 13.7 % (11.0-16.0); White Blood Count 6.9 X10*3/uL (4.8-10.8)
[2023-10-11 14:01] LABS: Alanine Aminotransferase 14 U/L (0-31); Albumin Level 3.9 g/dL (3.5-5.0); Alkaline Phosphatase 51 U/L (39-117); Anion Gap 12 (12-20); Aspartate Amino Transferase 24 U/L (5-31); Bilirubin Total 0.7 mg/dL (0.0-1.0); Blood Urea Nitrogen 16 mg/dL (9-16); Calcium 9.4 mg/dL (8.4-10.2); Carbon Dioxide 26 mmol/L (22-29); Chloride 106 mmol/L (96-108); Cholesterol 182 mg/dL (<200); Estimated Glomerular Filt Rate > 60; Glucose Fasting 81 mg/dL (60-99); HDL Cholesterol 78 mg/dL (>40); LDL Cholesterol Calculated 93 mg/dL (<100); Potassium 4.1 mmol/L (3.3-5.1); Sodium 140 mmol/L (135-145); Total Protein 7.1 g/dL (6.5-8.0); Triglycerides 57 mg/dL (<150)
[2023-10-11 14:11] LABS: Vitamin D 25-OH Total 53.9 ng/mL (>30)
[2023-10-11 14:24] LABS: Folate 14.2 ng/mL (> or = 4.0); Vitamin B12 882 pg/mL (200-900)
== END 2023-10-11 09:48 | disposition home or self-care (01) ==
LOC: HO.HMGCLDS 09:47
PROVIDERS: PCP Internal Medicine; Visit Provider Internal Medicine
DX: I11.0 Hypertensive heart disease with heart failure (principal); I48.0 Paroxysmal atrial fibrillation; J44.9 Chronic obstructive pulmonary disease, unspecified; I50.9 Heart failure, unspecified; M81.0 Age-related osteoporosis without current pathological fracture; E55.9 Vitamin D deficiency, unspecified
CPT/HCPCS: 36415; 80053; 80061; 82306; 82607; 82746; 85025

== ENCOUNTER 2023-10-18 11:18 | Outpatient (REF) | payer MEDICARE, SELFPAY ==
[2023-09-05 08:26] VITALS: BP 118/60; BP 90/52; BP 92/48; BMI 25.0
[2023-10-18 11:29] VITALS: BP 138/69; PULSE 60; RESP 22; TEMP 36.3; O2SAT 91; BMI 21.3
[2023-10-18] MEDS: Zoledronic Acid/Mannitol-Water 5 MG/100 ML PGGYBK.BTL 400 MG IV (11:55)
== END 2023-10-18 11:19 | disposition home or self-care (01) ==
LOC: HO.MDS 11:18
PROVIDERS: Visit Provider Internal Medicine
DX: M81.0 Age-related osteoporosis without current pathological fracture (principal)
CPT/HCPCS: 96365; J3489

== ENCOUNTER 2023-11-10 09:09 | Outpatient (AMB) | payer MEDICARE, SELFPAY ==
[2023-11-10 09:05] VITALS: BP 118/60; BP 90/52; BP 92/48; BMI 25.0
--- OUTSIDE RECORDS SUMMARY | 2023-11-10 09:10 | XMS_ITS | Continuity of Care Document ---
Author Organization [facility] ter Address [address] [place] [id number]- Care Team Providers Care Research Project Coordinator Name Role Phone Manish Singh MD Primary Care Physician [place] [facility] [place] 08/07[place]22 - 09/15/[address] [id number] Attending Physician: Joni Givens MD Admitting Physician: Joni Givens MD Referring Physician: Joni Gviens MD Allergies, Adverse Reactions, Alerts Substance Reaction Severity Status predniSONE Active montelukast Active gemifloxacin Active Immunizations Given and Recorded Vaccine Date Status Refusal Reason SARS-CoV-2 mRNA (tmtbuqk-snth-kbpga) vax 10/28/21 Recorded SARS-CoV-2 (COVID-19) mRNA BNT-162b2 vac 05/12/21 Recorded SARS-CoV-2 (COVID-19) mRNA BNT-162b2 vac 11/06/20 Recorded Medications Advair Diskus 250 mcg-50 mcg inhalation powder 1, puffs, Inhalation, 2 times a day, # 28 each, Refills 0, Maintenance, 07/19/22 17:03:00 EST, Powder Start Date: 07/19/22 Status: Ordered Albuterol (Eqv-ProAir HFA) 90 mcg/inh inhalation aerosol 2 puffs, Inhalation, Every 6 hours, PRN Wheezing/Shortness of Breath, 0 Refills, Maintenance, 07/19/22 17:01:00 EST, Partial fill upon patient request if the prescription is for a schedule II opioid drug. Start Date: 07/19/22 Status: Ordered aspirin 81 mg oral delayed release tablet 81 mg, 1, tablet, By Mouth, Daily, # 30 tablet, Refills 0, Maintenance, 07/19/22 16:58:00 EST, Partial fill upon patient request if the prescription is for a schedule II opioid drug. Start Date: 07/19/22 Status: Ordered calcium carbonate 600 mg oral tablet 1 tablet = 600 mg, By Mouth, 2 times a day, # 60 tablet, 0 Refills, Maintenance, 07/19/22 17:02:00 EST, Tablet, Partial fill upon patient request if the prescription is for a schedule II opioid drug. Start Date: 07/19/22 Status: Ordered cetirizine 10 mg oral tablet 1 tablet = 10 mg, By Mouth, Daily at bedtime, # 30 tablet, 0 Refills, Maintenance, 07/19/22 17:02:00 EST, Tablet, Partial fill upon patient request if the prescription is for a schedule II opioid drug. Start Date: 07/19/22 Status: Ordered cholecalciferol 50 mcg (2000 intl units) oral tablet, chewable 1 tablet = 50 mcg, By Mouth, Daily, 0 Refills, Maintenance, 07/19/22 17:02:00 EST, Partial fill upon patient request if the prescription is for a schedule II opioid drug. Start Date: 07/19/22 Status: Ordered fluticasone 50 mcg/inh nasal spray 1 sprays, Nares, Both, 2 times a day, 0 Refills, Maintenance, 07/19/22 17:03:00 EST, [place], Partialfill upon patient request if the prescription is for a schedule II opioid drug. Start Date: 07/19/22 Status: Ordered furosemide 40 mg oral tablet 40 mg, 1, tablet, By Mouth, Daily, can hold for dehydration, or hypotension less than 100 systolic,# 30 tablet, Refills 0, Tot. Refills 0, Maintenance, 07/23/22 7:46:00 EST, Route to Pharmacy Electronically, [facility], Partial fill upo... Start Date: 07/23/22 Status: Ordered magnesium oxide 400 mg oral tablet 1 tablet = 400 mg, By Mouth, Daily at bedtime, # 10 tablet, 0 Refills, Maintenance, 07/19/22 17:04:00 EST, Tablet, Partial fill upon patient request if the prescription is for a schedule II opioid drug. Start Date: 07/19/22 Stop Date: 07/29/22 Status: Ordered Multivitamin 1 tablet, By Mouth, Daily, 0 Refills, Maintenance, 07/19/22 17:04:00 EST, Partial fill upon patientrequest if the prescription is for a schedule II opioid drug. Start Date: 07/19/22 Status: Ordered pravastatin 20 mg oral tablet 20 mg, 1, tablet, By Mouth, Daily at bedtime, # 30 tablet, Refills 0, Maintenance, 07/19/22 17:05:00 EST, Partial fill upon patient request if the prescription is for a schedule II opioid drug. Start Date: 07/19/22 Status: Ordered Problem List Condition Confirmation Course Effective Dates Status H ealth Status Informant Pacemaker Confirmed Active Chronic respiratory failure with hypoxia Confirmed Active COPD mixed type Confirmed Active Congestive heart failure Confirmed Active Hyperlipidemia Confirmed Active Hypertension Confirmed Active Hyponatremia Confirmed Active Meniere's disease Confirmed Active JEIMY (obstructive sleep apnea) Confirmed Active Osteoporosis Confirmed Active SSS (sick sinus syndrome) Confirmed Active Patient Care team information Care Team Personnel Name: Diana Saravia Position: [place] SHEETS Supv Member Role: Primary Care Nurse Name: Tere Jenkins RN Position: [place]IG[place]INS RN Member Role: Primary Care Nurse Care Team Related Persons Name: SINA TURNER Address: [address] [place] [address] Name: ANDREW VUONG Address: home [address] [place] [id number]
--- OUTSIDE RECORDS SUMMARY | 2023-11-10 09:10 | XMS_ITS | Continuity of Care Document ---
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 Role Phone Freida Yarbrough MD Primary Care Physician Encounter [facility] Date(s): 07/19/22 - 07/23/[address] [address] Discharge Disposition: A-D/C Home Attending Physician: Anibal Scott Sr, MD Admitting Physician: Farrah Batres MD Referring Physician: Farrah Batres MD Allergies, Adverse Reactions, Alerts Substance Reaction Severity Status predniSONE Active montelukast Active gemifloxacin Active Immunizations Given and Recorded Vaccine Date Status Refusal Reason SARS-CoV-2 mRNA ([id number]) vax 10/28/21 Recorded SARS-CoV-2 (COVID-19) mRNA BNT-162b2 [...] day, 0 Refills, Maintenance, 07/19/22 17:03:00 EST, [place], Partialfill upon patient request if the prescription is for a schedule II opioid drug. Start Date: 07/19/22 Status: Ordered furosemide 40 mg oral tablet 40 mg, 1, tablet, By Mouth, Daily, can hold for dehydration, or hypotension less than 100 systolic,# 30 tablet, Refills 0, Tot. Refills 0, Maintenance, 07/23/22 7:46:00 EST, Route to Pharmacy Electronically, [facility], Partial fill upo... Start Date: 07/23/22 Status: Ordered magnesium oxide 400 mg oral tablet 1 tablet = 400 mg, By Mouth, Daily at bedtime, # 10 tablet, 0 Refills, Maintenance, 07/19/22 17:04:00 EST, Tablet, Partial fill upon patient request if the prescription is for a schedule II opioid drug. Start Date: 07/19/22 Stop Date: 07/29/22 Status: Ordered metoprolol 25 mg oral tablet 12.5 mg, Tablet, By Mouth, Hold for: SBP 110 or HR <65, 07/23/22 9:00:00 EST Start Date: 07/23/22 Stop Date: 07/23/22 Status: Completed Multivitamin 1 tablet, By Mouth, Daily, 0 [...] Active SSS (sick sinus syndrome) Confirmed Active Vital Signs Most recent to oldest [Reference Range]: 1 2 3 Height 153 cm (07/23/22 8:19 AM) 153 cm (07/22/22 8:52 PM) 153 cm (07/22/22 2:37 PM) Weight 64.0 kg (07/22/22 2:40 AM) 67.0 kg (07/20/22 6:11 AM) 67.0 kg (07/20/22 2:31 AM) Oxygen Saturation [94-100 %] 98 % (07/23/22 8:19 AM) 95 % (07/23/22 2:00 AM) 97 % (07/22/22 8:52 PM) Pulse Rate [55-90 bpm] 72 bpm (07/23/22 9:00 AM) 72 bpm (07/23/22 8:19 AM) 80 bpm (07/23/22 2:00 AM) Body Mass Index [18.5-24.99 kg/m2] 27.34 kg/m2 *H* (07/22/22 2:40 AM) 28.62 kg/m2 *H* (07/20/22 2:31 AM) 27.51 kg/m2 *H* (07/19/22 3:29 PM) Blood Pressure [90-138/55-84 mm Hg] 112/72mm Hg (07/23/22 9:00 AM) 112/72mm Hg (07/23/22 8:19 AM) 106/63mm Hg (07/23/22 2:00 AM) Respiratory Rate [16-30 br/min] 20 br/min (07/23/22 8:19 AM) 18 br/min (07/23/22 2:00 AM) 20 br/min (07/22/22 8:52 PM) Temperature [96.8-100.4 DegF] 97.6 DegF (07/23/22 8:19 AM) 97.6 DegF (07/23/22 2:00 AM) 98.3 DegF (07/22/22 8:52 PM) Liters per Minute 3 L/min (07/23/22 8:19 AM) 3 L/min (07/23/22 2:00 AM) 3 L/min (07/22/22 8:52 PM) Mode of Delivery (Oxygen) Nasal cannula (07/23/22 8:19 AM) Nasal cannula (07/23/22 2:00 AM) Nasal cannula (07/22/22 8:52 PM) Blood pressure sites Arm, right (07/23/22 8:19 AM) Arm, right (07/23/22 2:00 AM) Arm, right (07/22/22 9:22 PM) Temperature Route Oral (07/23/22 8:19 AM) Oral (07/23/22 2:00 AM) Oral (07/22/22 8:52 PM) Dry Weight 64.4 kg (07/19/22 3:29 PM) 64.4 kg (07/19/22 3:28 PM) Weight Obtained Via Bed scale (07/22/22 2:40 AM) Bed scale (07/20/22 2:31 AM) Bed scale (07/19/22 3:29 PM) Dry Weight Obtained Via Bed scale (07/19/22 3:29 PM) Bed scale (07/19/22 3:28 PM) Note * Event Display: Cardiac Rhythm Strips Authored Date: * Jenn Davalos RN: PERFORM Event Display: Discharge/Transfer Note Hospital Authored Date: Nursing Discharge Note Entered On: 07/23/2022 13:34 EST Performed On: 07/23/2022 13:33 EST by Jenn Davalos RN Nursing Discharge Note 2 Discharge Time : 07/23/2022 13:33 EST Discharge Level of Care at Discharge : Home/Jail/Foster Care Patient Left Unit Via : Wheelchair Patient Accompanied Off Unit with : Significant other DC Instructions Provided & Signed by Pt : Yes Patient Understands D/C Instructions : Yes Patient Instructions Discharge Signed : Yes Did Pt have Specialty Bed or Wound Vac : No Jenn Davalos RN - 07/23/2022 13:33 EST * Sonia Parisi MD, Anibal Ruiz: PERFORM Event Display: Discharge/Transfer Note Hospital Authored Date: Patient: ??PRO RAMIREZ ? Age:??77 Years?Sex:??Female?:??1945?? Patient Information Discharge Location: Primary Care Physician: Manish Singh MD Admit Date/Time: 07/19/22 15:24 Discharge Disposition Discharge Disposition: ?? Discharge Diagnosis Acute on chronic respiratory failure with hypoxia (J96.21) NSTEMI (non-ST elevation myocardial infarction) (I21.4) Acute systolic congestive heart failure (I50.21) stress induced cardiomyopathy Influenza A (J10.1) COPD with acute exacerbation (J44.1) Hypertension (I10) Hyperlipidemia (E78.5) Hyponatremia (E87.1) ?? _ Discharge Medications Albuterol (Albuterol (Eqv-ProAir HFA) 90 mcg/inh inhalation aerosol)?2?puff(s)?Inhalation?Every 6 hours?as needed?Wheezing/Shortness of Breath Aspirin (aspirin 81 mg oral delayed release tablet)?81?Milligram?1?tablet?By Mouth?Daily Calcium Carbonate (calcium carbonate 600 mg oral tablet)?1?tab(s)?600?Milligram?By Mouth?2 times a day Cetirizine (cetirizine 10 mg oral tablet)?1?tab(s)?10?Milligram?By Mouth?Daily atbedtime Cholecalciferol (cholecalciferol 50 mcg (2000 intl units) oral tablet, chewable)?1?tab(s)?50?Microgram?By Mouth?Daily Fluticasone Nasal (fluticasone 50 mcg/inh nasal spray)?1?spray(s)?Nares, Both?2 times aday Fluticasone-Salmeterol (Advair Diskus 250 mcg-50 mcg inhalation powder)?1?puff(s)?Inhalation?2 times a day Furosemide (furosemide 40 mg oral tablet)?40?Milligram?1?tablet?By Mouth?Daily?can hold for dehydration, or hypotension less than 100 systolic Magnesium Oxide (magnesium oxide 400 mg oral tablet)?1?tab(s)?400?Milligram?By Mouth?Daily at bedtime?for 10?Days Multivitamin?1?tab(s)?By Mouth?Daily Pravastatin (pravastatin 20 mg oral tablet)?20?Milligram?1?tablet?By Mouth?Daily at bedtime ? Quality Measures Chest Pain, AMI Quality Measures:?ACEI or ARB for LVSD:??Both ACEI & ARB are contraindicated ?Beta-Emily Prescribed at Discharge:??Beta-Emily Contraindicated ?Aspirin Prescribed at Discharge:??Aspirin Contraindicated ?Statin Prescribed at Discharge:??Statin Contraindicated ? Medications Discontinued metoprolol , lisinopril due to hypotension Allergies Allergies ?(Active and Proposed Allergies Only) montelukast? (Severity: Unknown severity, Onset: Unknown) gemifloxacin? (Severity: Unknown severity, Onset: Unknown) predniSONE? (Severity: Unknown severity, Onset: Unknown) ? Objective 77 year old female with history of SSS, s/p pacemaker, CHFpEF, COPD with chronic hypoxic respiratory failure on 1-2L supplemental O2 at baseline, JEIMY, hypertension, hyperlipidemia, hyponatremia, Meniere's disease, and osteoporosis who presented to [facility] on 07/16/22 with progressive shortness of breath over a 1 month timeframe.??Workup revealed acute on chronic hypoxic respiratory failure likely from multifactorial causes, with influenza A, COPD exacerbation, new heart failure, and NSTEMI.??She has been transferred here to [facility] for cardiac catheterization. ?? Acute on chronic respiratory failure with hypoxia (J96.21):?? Multifactorial in the setting of Influenza A infection COPD exacerbation, new systolic congestive heart failure, and NSTEMI.? The patient improved with multimodal treatments as outlined.?? She never had chest pain. ??No evidence for VTE on imaging.?? Titrate supplemental O2. Treatment plans as outlined. ?? NSTEMI (non-ST elevation myocardial infarction) (I21.4) Acute systolic congestive heart failure (I50.21):?? stress induced cardiomyopathy Acute type I NSTEMI is possible in the LAD territory.??Also in the differential diagnosis is stress-induced cardiomyopathy (in the setting of illness) or possible Influenza-mediated myocarditis. She has diuresed well and maintained hemodynamic stability.??Cr up to 1.2 prior to transfer ECHO with low EF 25% ?? s/p heparin drip s/p cardiac catheterization yesterday 07/21??with no obstructive coronaries, mostly non ischemic cardiomyopathy , likely due to stress induced started on ??low dose metoprolol 12.5 mg BID 07/22??with holding parameters, ?could not toleratedue to hypotension with symptoms ??it so D/mumtaz at discharge could not tolerate ARBs. TANNER-I Continue aspirin, statin will need repeat ECHO after 2-3 months with cardiology for EF follow up ?? Influenza A (J10.1) COPD with acute exacerbation (J44.1):?? The patient has minimal wheezing on exam today.??She has completed courses of IV steroids and antibiotics at [facility].?She likely had reactive airway disease in the setting of Influenza A infection. ?? completed 5 days??course of Tamiflu Resume steroid inhaler (Breo Ellipta on formulary here). ? Hypertension (I10) Hyperlipidemia (E78.5): ??Blood pressure was low at hospital Renal function has been monitored at [facility] with Cr up to 1.2 prior to transfer (after IVdiuresis). We will continue Lasix (40 mg PO daily to hold for hypotension or dehydration , educated daughter and patient Continue ASA and pravastatin as prescribed. ?? Hyponatremia (E87.1): ??Blood??sodium at baseline, 132 at [facility]. normalized at discharge? Measurements?? Height: 153 cm (07/23/22) Weight: 64 kg (07/22/22) Dry Weight: 64.4 kg (07/19/22) Body Mass Index:??27.34 kg/m2??High (07/22/22) ? Vital Signs?? Temperature: 97.6 DegF (07/23/22 08:19:00) Temperature Route: Oral (07/23/22 08:19:00) Pulse Rate: 72 bpm (07/23/22 09:00:00) Respiratory Rate: 20 br/min (07/23/22 08:19:00) Systolic Blood Pressure: 112 mm Hg (07/23/22 09:00:00) Diastolic Blood Pressure: 72 mm Hg (07/23/22 09:00:00) Blood pressure sites: Arm, right (07/23/22 08:19:00) Mean Arterial Pressure: 85 mm Hg (07/23/22 08:19:00) Pulse Pressure: 40 mm Hg (07/23/22 08:19:00) Oxygen Saturation: 98 % (07/23/22 08:19:00) Liters per Minute: 3 L/min (07/23/22 08:19:00) Mode of Delivery (Oxygen): Nasal cannula (07/23/22 08:19:00) Early Warning Score: 2 (07/23/22 08:34:48) ? Intake/Output? 07/19 15:24 07/23 07:00 07/22 07:00 07/21 07:00 07/20 07:00 ?? 07/23 11:22 07/23 11:22 07/23 06:59 07/22 06:59 07/21 06:59 Intake ?750.9 ?0 ?0 ?0 ?669.2 Output ?0 ?0 ?0 ?0 ?0 Net Total ?750.9 ?0 ?0 ?0 ?669.2 ? Urine Count ?6 ?0 ?3 ?1 ?2 ? . Physical Exam General: Awake, not in??distress Head and neck: Atraumatic, no neck swelling Eye: no injection or jaundice, EOMI. Cardiac: RRR, no murmurs, gallops or rubs, no S3 or S4. Pulmonary: Normal breathing sounds bilaterally with good air entery with??no wheezing or??rhonchi Abdominal: No tenderness or rebound tenderness, normal BS, no HSM Skin: No rashes, jaundice or scratching asif Extremities: No edema, no swelling or varicose veins Neuro: awake, alert oriented X3, no focal weakness. Psych: Not anxious Pending Results CBC ordered on 07/19/2022 COVID-19 (2018 Novel Coronavirus) PCR ordered on 07/19/2022 COVID-19 (2018 Novel Coronavirus) PCR ordered on 07/21/2022 PTT ordered on 07/20/2022 Follow-Up Appointments Added Follow Up ?Time Frame ?Comments Samantha JURADO, Manish?1 week [facility]?08/16/2021 10:30?If you need to reschedule this appointment please call [phone] Manish Singh MD Post Discharge Care Discharge ?07/23/22 11:21:00 EST Home Health Face to Face *Denotes mandatory hancock ?? *I certify that this patient is under my care and that I or an allowed non- physician working with me had a face to face encounter with the patient on this date:??07/23/2022 11:25 ?? *The encounter with the patient was in whole, or in part, for the following medical condition, which is the primary diagnosis(es) for home health care:??Acute on chronic respiratory failure with hypoxia (J96.21) NSTEMI (non-ST elevation myocardial infarction) (I21.4) Acute systolic congestive heart failure (I50.21) Influenza A (J10.1) COPD with acute exacerbation (J44.1) Hypertension (I10) Hyperlipidemia (E78.5) Hyponatremia (E87.1) ? *Select the indications for the discipline/s that are being arranged for this patient. Nursing (select all that apply): [_] None [XX_] Medication management (reconciliation, teaching)?? [_XX] Chronic disease management?? [_] Wound care and treatment?? [_] Home safety evaluation [_] Administer SQ/IM/IV medications?? [_] Cath care?? [_] Drain care?? [_] Trach or GT care?? Other _ Occupation Therapy (select all that apply): [_] None [_] ADL Management [XX_] Fall prevention training [_] Energy conservation [_] Cognitive training Other _ Physical Therapy (select all that apply): [_] None [_XX] Functional mobility training [_XX] Home exercise program to strengthen [_] Increase ROM?? [_XX] Falls prevention training [_] Home maintenance program for chronic disease Other _ Speech Therapy (select all that apply): [_] None [_] Swallow evaluation and training [_] Speech and language training [_] Cognitive training to process, organize, and/or recall information Other _ ? *Homebound due to (select all that apply): [_] Inability to leave home without assistance/supervision [_] Inability to ambulate without assistance [_] Pain [_] Decreased strength and endurance [_] Unsteady gait [_] Severe SOB and fatigue [_] Impaired transfers [_] Inability to negotiate stairs [_] Limited weight bearing [_] Mental status change? *Physician Signature:??Anibal Scott MD ?? *By signing this, I certify that I have personally evaluated the patient and agree with the findings and recommendations as documented above. ? Results Discharge Labs BLOOD COUNT & DIFF WBC 11.1 k/mm3 (High)?? 07/23/2022 01:58 RBC 3.12 m/mm3 (Low)?? 07/23/2022 01:58 Hgb 10.0 Gm/dL (Low)?? 07/23/2022 01:58 Hct 30.4 % (Low)?? 07/23/2022 01:58 MCV 97.4 femtoliters ()?? 07/23/2022 01:58 MCH 32.1 pg ()?? 07/23/2022 01:58 MCHC 32.9 g/dL (Low)?? 07/23/2022 01:58 Platelet Count 214 k/mm3 ()?? 07/23/2022 01:58 RDW-SD 48.6 femtoliters (High)?? 07/23/2022 01:58 MPV 9.9 femtoliters ()?? 07/23/2022 01:58 Nucleated RBC (Automated) 0.0 #/100 WBC'S ()?? 07/23/2022 01:58 Abs. NRBC 0.0 k/mm3 ()?? 07/23/2022 01:58 Abs. Neut 10.3 k/mm3 (High)?? 07/20/2022 06:06 Abs. Lymph 1.1 k/mm3 ()?? 07/20/2022 06:06 Abs. [place] 1.0 k/mm3 (High)?? 07/20/2022 06:06 Abs. Eo 0.0 k/mm3 ()?? 07/20/2022 06:06 Abs. Baso 0.0 k/mm3 ()?? 07/20/2022 06:06 Neut % 82.6 % (High)?? 07/20/2022 06:06 Lymph % 8.8 % (Low)?? 07/20/2022 06:06 [place] % 7.7 % ()?? 07/20/2022 06:06 Eos % 0.0 % ()?? 07/20/2022 06:06 Baso % 0.2 % ()?? 07/20/2022 06:06 Imm Gran 0.7 % ()?? 07/20/2022 06:06 Abs. Imm Gran 0.1 k/mm3 ()?? 07/20/2022 06:06 ?? CARDIAC CK, Total 255 units/L (High)?? 07/20/2022 06:06 High Sensitivity Troponin (HSTnT) 189 ng/L (Critical)?? 07/21/2022 03:26 ?? CHEM GENERAL Sodium 136 mmol/L ()?? 07/23/2022 01:58 Potassium 3.8 mmol/L ()?? 07/23/2022 01:58 Chloride 97 mmol/L (Low)?? 07/23/2022 01:58 Bicarbonate Level 28 mmol/L ()?? 07/23/2022 01:58 Anion Gap 11 ()?? 07/23/2022 01:58 Glucose Level 133 mg/dL (High)?? 07/23/2022 01:58 Glucose, POC 181 mg/dL (High)?? 07/21/2022 15:58 BUN 20 mg/dL ()?? 07/23/2022 01:58 Creatinine-Blood 0.8 mg/dL ()?? 07/23/2022 01:58 Estimated GFR Creatinine 71 ML/MIN/1.73 M2 ()?? 07/23/2022 01:58 Calcium 9.0 mg/dL ()?? 07/23/2022 01:58 Magnesium 2.0 mg/dL ()?? 07/23/2022 01:58 Protein, Total 6.0 Gm/dL (Low)?? 07/20/2022 06:06 Albumin 3.7 Gm/dL ()?? 07/20/2022 06:06 AG Ratio 1.6 ()?? 07/20/2022 06:06 LDH 371 units/L (High)?? 07/21/2022 03:23 Alkaline Phosphatase 42 units/L ()?? 07/20/2022 06:06 AST (SGOT) 47 units/L (High)?? 07/20/2022 06:06 ALT (SGPT) 39 units/L (High)?? 07/20/2022 06:06 Bilirubin, Total 0.3 mg/dL ()?? 07/20/2022 06:06 ?? COAG APTT 43.3 seconds (High)?? 07/21/2022 10:08 ? VIROLOGY COVID-19 PCR Specimen Source NASAL ()?? 07/21/2022 05:00 COVID-19 PCR Result NEGATIVE ()?? 07/21/2022 05:00 ? >45_ minutes spent on discharge * Anoop SHEETS, Jenn: PERFORM Event Display: Patient Education/Instruction Authored Date: [id number] Inpatient Adult Discharge Instructions [address] [address] Name: PRO RAMIREZ : 1945 Visit: 07/19/2022 15:24:00 Current Date: 07/23/2022 11:51 Account: [id number] Inpatient Adult Discharge Instructions We would like to thank you for allowing us to assist you with your healthcare needs. The following includes patient education materials and information regarding your injury/illness. Our entire staffstrives to provide an excellent experience for our patients and their families. PLEASE ENSURE YOU FOLLOW-UP PER THE INSTRUCTIONS BELOW! ?? YOUR OPINION IS IMPORTANT TO US! Please complete the survey you may receive by mail or email. Your feedback will be used to make improvements to the healthcare experiences of our patients and their families. Surveys are administered by [email or web address]. ?? If further treatment with your primary care physician or another doctor is recommended, it is important for you to keep the appointment. Call your primary care physician or return to the Emergency Department immediately if your condition worsens, fails to improve, or new symptoms develop. If you need to find a doctor, you can call [facility] for a referral at [phone] or toll free at [phone]) or log in to [email or web address].. ?? You can view and manage your care through the patient portal or by using a health care nicol of your choosing. [employer] is a website that allows you to securely view your medical information including your hospital discharge summary, office visit summaries, medications and follow-up visits. You can also request appointments, renew medications, and request access to your medical information using a health care nicol of your choosing, or just ask a question. You can enroll at [email or web address] or register during your next office visit. You have been discharged from [facility], Patient Care Unit: M5. If you have any questions regarding these instructions after you leave, please call us and we will be happy to assist you. [facility] Your Care Team Attending Physician Anibal Scott Sr, MD Discharging Providers Anibal Scott Sr, MD Reason for Admission [facility] from [facility] for NSTEMI, CHF. Your Diagnosis NSTEMI (non-ST elevation myocardial infarction) Acute on chronic respiratory failure with hypoxia Acute systolic congestive heart failure Influenza A COPD with acute exacerbation Hypertension Hyperlipidemia Hyponatremia Tests Performed Below is a partial list of the tests performed during your hospitalization. You may have had other tests and procedures not included in this list. Please discuss all test results with your provider. Basic Metabolic Panel CBC CBC w/ Differential Comprehensive Metabolic Panel CPK Total Only GLUCOSE POC LDH Magnesium Level Mg Level PTT Troponin T, High Sensitivity Advance Directive Health Care Proxy on File No No qualifying data available. Discharge Vitals Temperature: 97.6 DegF Height: 153 cm Pulse Rate: 72 bpm Weight: 64 kg Respiratory Rate: 20 br/min Body Mass Index:??27.34 kg/m2??High Systolic Blood Pressure: 112 mm Hg Body surface area: 1.65 Diastolic Blood Pressure: 72 mm Hg ?? Oxygen Saturation: 98 % ?? Studies Pending All tests and labs ordered during this hospital stay have been completed unless listed below. Please discuss all pending results with your provider listed above in these instructions. ?? CBC COVID-19 (2019 Novel Coronavirus) PCR PTT What to do next Instructions From Your Doctor Discharge Orders You Need to Schedule the Following Appointments Follow Up with??[facility] When??08/16/2021 10:30 AM EST Why: If you need to reschedule this appointment please call [phone] Where: [address] [address]- [phone] Follow Up with??Manish Singh MD When??Within 1 week Where: [facility] [address] [place] [address]- Follow Up with??Manish Singh MD When??In 0 days Where: [facility] [address] [place] [address]- Business (1) Discharge Medications PRO RAMIREZ :1945 Visit Date:07/19/2022 Medications: Please continue your medications until treatment is completed or stopped by your provider. Medications not listed below should be discontinued. Discuss any questions related to medications with your provider. What How Much When Instructions Next Dose Changed Furosemide (furosemide 40 mg oral tablet) 1 tab(s) Oral Daily can hold for dehydration, or hypotension less than 100 systolic ?? Pickup at [facility] 07/24 23 8am Unchanged Albuterol (Albuterol (Eqv-ProAir HFA) 90 mcg/ inh inhalation aerosol) 2 puff(s) Inhalation Every 6 hours as needed for Wheezing/Shortness of Breath as needed Unchanged Calcium Carbonate (calcium carbonate 600 mg oral tablet) 1 tab(s) Oral Twice a day 07/23 6pm Unchanged Cetirizine (cetirizine 10 mg oral tablet) 1 tab(s) Oral Daily at Bedtime 07/23 8pm Unchanged Cholecalciferol (cholecalciferol 50 mcg (2000 intl units) oral tablet, chewable) 1 tab(s) Oral Daily 07/24 8am Unchanged Fluticasone Nasal (fluticasone 50 mcg/ inh nasal spray) 1 spray(s) Nares, Both Twice a day 07/23 8pm Unchanged Fluticasone-Salmeterol (Advair Diskus 250 mcg-50 mcg inhalation powder) 1 puff(s) Inhalation Twice a day 07/23 8pm Unchanged Magnesium Oxide (magnesium oxide 400 mg oral tablet) 1 tab(s) Oral Daily at Bedtime Duration: 10 Days 07/23 8pm Unchanged Multivitamin 1 tab(s) Oral Daily 8am Unchanged Pravastatin (pravastatin 20 mg oral tablet) 1 tab(s) Oral Daily at Bedtime 07/23 8am Pharmacy Information [facility] 3: [address], [place] [id number] [phone] ?? What How Much When Comments Stop Taking Lisinopril (lisinopril 40 mg oral tablet) 1 tab(s) Oral Daily Stop Taking Oseltamivir (oseltamivir 30 mg oral capsule) 1 capsule Oral Twice a day Duration: 2 Days Test Results Below is a partial list of the most recent Laboratory test results done prior to this discharge. You may have had other tests and procedures not included in this list. Please discuss all test resultswith your provider. Basic Metabolic Panel (07/23/2022) ???Sodium - 136 mmol/L???Potassium - 3.8 mmol/L???Chloride - 97 mmol/L???Bicarbonate Level - 28 mmol/L???Anion Gap - 11???Glucose Level - 133 mg/dL???BUN - 20 mg/dL???Creatinine-Blood - 0.8 mg/dL???Estimated GFR Creatinine - 71 ML/MIN/1.73 M2???Calcium - 9.0 mg/dL CBC (07/23/2022) ???WBC - 11.1 k/mm3???RBC - 3.12 m/mm3???Hgb - 10.0 Gm/dL???Hct - 30.4 %???MCV - 97.4 femtoliters???MCH - 32.1 pg???MCHC - 32.9 g/dL???Platelet Count - 214 k/mm3???RDW-SD - 48.6 femtoliters???MPV - 9.9 femtoliters???Nucleated RBC (Automated) - 0.0 #/100 WBC'S???Abs. NRBC - 0.0 k/mm3 CBC w/ Differential (07/20/2022) ???WBC - 12.4 k/mm3???RBC - 3.97 m/mm3???Hgb - 12.8 Gm/dL???Hct - 37.9 %???MCV - 95.5 femtoliters???MCH - 32.2 pg???MCHC - 33.8 g/dL???Platelet Count - 228 k/mm3???RDW-SD - 47.9 femtoliters???MPV - 9.8 femtoliters???Nucleated RBC (Automated) - 0.0 #/100 WBC'S???Abs. NRBC - 0.0 k/mm3???Abs. Neut - 10.3 k/mm3???Abs. Lymph - 1.1 k/mm3???Abs. [place] - 1.0 k/mm3???Abs. Eo - 0.0 k/mm3???Abs. Baso - 0.0 k/mm3???Neut % - 82.6 %???Lymph % - 8.8 %???[place] % - 7.7 %???Eos % - 0.0 %???Baso % - 0.2 %???Imm Gran - 0.7 %???Abs. Imm Gran - 0.1 k/mm3 Comprehensive Metabolic Panel (07/20/2022) ???Sodium - 138 mmol/L???Potassium - 4.1 mmol/L???Chloride - 99 mmol/L???Bicarbonate Level - 27 mmol/L???Anion Gap - 12???Glucose Level - 98 mg/dL???BUN - 35 mg/dL???Creatinine-Blood - 1.1 mg/dL???Estimated GFR Creatinine - 50 ML/MIN/1.73 M2???Calcium - 9.0 mg/dL???Protein, Total - 6.0 Gm/dL???Album in - 3.7 Gm/dL???AG Ratio - 1.6???Alkaline Phosphatase - 42 units/L???AST (SGOT) - 47 units/L???ALT(SGPT) - 39 units/L???Bilirubin, Total - 0.3 mg/dL CPK Total Only (07/20/2022) ???CK, Total - 255 units/L GLUCOSE POC (07/21/2022) ???Glucose, POC - 181 mg/dL LDH (07/21/2022) ???LDH - 371 units/L Magnesium Level (07/20/2022) ???Magnesium - 2.5 mg/dL Mg Level (07/23/2022) ???Magnesium - 2.0 mg/dL PTT (07/21/2022) ???APTT - 43.3 seconds Troponin T, High Sensitivity (07/21/2022) ???High Sensitivity Troponin (HSTnT) - 189 ng/L Allergies (NKA means No Known Allergies) gemifloxacin montelukast predniSONE Problems Active Problems??(11) Chronic respiratory failure with hypoxia?? Congestive heart failure?? COPD mixed type?? Hyperlipidemia?? Hypertension?? Hyponatremia?? Meniere's disease?? JEIMY (obstructive sleep apnea)?? Osteoporosis?? Pacemaker?? SSS (sick sinus syndrome)?? Education Materials Below is the list of Educational Leaflet Providered with your Discharge Instructions. What Is Heart Failure??? Heart Failure: Warning Signs of a Flare-Up?? COPD Flare-Up?? Preventing Common Respiratory Infections?? Symptoms of a Heart Attack?? Heart Attack: Back at Home?? Valuables and Belongings I fully understand and agree that [facility] accepts no responsibility for all my personal property including clothing, toilet articles, radios, jewelry, dentures, hearing aids, rings, money, or any other property that is in my possession or is brought to me after admission. I understand certain valuables may be placed in a hospital safe for a short period of time. I understand that the hospital is not liable for loss or damage due to accident, fire, or other natural occurrence while said property is in the safe. I accept full responsibility for any personal property that I keep with me, and will not hold the hospital responsible in case of loss or disappearance. I acknowledge that i have been encouraged to send valuables and belongings home. ? Other Discharge Information ? Pulmonary Rehab Status?? Pulmonary Rehab Discharge Status?? Respiratory Rate: 20 br/min ? Cardiac Rehab Assessment?? Cardiac Rehab Inpatient Assessment?? Comments-Education: [place] handbook, CHF book/zones, post procedure activity restrictions, procedure site care and management Comments-Exercise Activity: pt is very active at home, looking forward to outpatient cardiac rehab.??Encouraged home walking, increase as tolerated, pt also does exercises she learned at pulmonary rehab, will continue with those as well Comments-Nutrition: Mediterranean/ Diabetic diet Comments-Stress Management: discussed impact of stress on heart, importance of stress reduction Comments-Lipids: meds/diet/exercise Comments-Other plan of care: Refer to Phase 2 at [facility] Patient attending Phase II: Yes Phase II Site of Care: [address] [phone] Cardiac Orientation Appointment: 08/16/22 10:30:00 Common Emergency Awareness Tips IS IT A STROKE? Act FAST and Check for these signs: FACE Does the face look uneven? ARM Does one arm drift down? SPEECH Does their speech sound strange? TIME Call at any sign of stroke ?? Heart Attack Signs Chest discomfort: Most heart attacks involve discomfort in the center of the chest and lasts more than a few minutes, or goes away and comes back. It can feel like uncomfortable pressure, squeezing, fullness or pain. Discomfort in upper body: Symptoms can include pain or discomfort in one or both arms, back, neck, jaw or stomach. Shortness of breath: With or without discomfort. Other signs: Breaking out in a cold sweat, nausea, or lightheaded. Remember, MINUTES DO MATTER. If you experience any of these heart attack warning signs, call to get immediate medical attention! ?? Smoking can increase your chances of developing chronic health problems and can cause harmful effects to other family members in your house. If you smoke, you are strongly encouraged to quit. Please call [facility] Information Link at [phone] or [phone]-Secret Sales ([phone]) or log in to [email or web address] for referrals to smoking cessation programs. ?? The National Suicide Prevention Hotline is available 13/02 if you or someone you know needs to find a reason to keep living. By calling 5-582-525-DOOMORO (1955) you'll be connected to a skilled, trained counselor at a crisis center in your area. INPATIENT DISCHARGE INSTRUCTIONS SIGNATURE PAGE PRO RAMIREZ Location:[facility] Registration Date and Time:07/19/2022 15:24 EST Primary Care Physician: Samantha JURADO, Manish, I ASHLEY PRO, have received the above patient education materials/instructions and have verbalized understanding. If ambulance or transport services are being used I further acknowledge being given a choice of service. ?? If you need to contact me, please call me at this number: . Patient/Information Technology Coordinator Name: Patient/Information Technology Coordinator Signature: Relationship to Patient: Witness Name/Signature: Date: * Marie Lopez RN: SIGN Marie Lopez RN: SIGN, SIGN, VERIFY Event Display: Patient Education Handout Authored Date: * Jenn Davalos RN: PERFORM Event Display: Patient Education Leaflets Authored Date: What Is Heart Failure? ?? 88506 What Is Heart Failure? The heart is a muscle that pumps oxygen-rich blood to all parts of the body. When you have heart failure, the heart is not able to pump as well as it should. Blood and fluid may back up into the lungs, and some parts of the body don???t get enough oxygen-rich blood to work normally. These problems lead to the symptoms you feel. When you have heart failure With heart failure, not enough oxygen-rich blood leaves the heart with each beat. There are 2 typesof heart failure. Both affect how well the left ventricles can pump blood. You may have??one or both types. Systolic heart failure. ??The heart muscle becomes weak and enlarged. It can???t pump enough oxygen-rich blood forward to the rest of the body when the ventricles contract. The measurement of how much blood your heart pumps out with each beat is called ejection fraction. In systolic heart failure, the ejection fraction is lower than normal. This can cause blood to back up into the lungs and causeshortness of breath and eventually ankle swelling (edema). This is also known as heart failure withreduced ejection fraction (HFrEF), heart failure with mildly reduced ejection fraction (HFmrEF), orheart failure with improved ejection fraction (HFimpEF). Diastolic heart failure.??The heart muscle becomes stiff. It doesn???t relax normally between contractions. This keeps the ventricles from filling with blood as they should. Ejection fraction is often in the normal range. This can still lead to the backup of blood into the body and affect the organs such as the liver. This is also called heart failure with preserved ejection fraction, or HFpEF. ? Recognizing heart failure symptoms When you have heart failure, you need to pay close attention to your body and how you feel, every single day. That way, if a problem occurs, you can get help before it becomes too severe. You'll needto watch for changes in your symptoms. As long as symptoms stay about the same from one day to the next, your heart failure is stable. But if symptoms start to get worse, it's time to take action. Signs and symptoms of worsening heart failure include: ??? Rapid weight gain from fluid buildup ???Shortness of breath, especially when lying down flat ??? Fast heart rate ??? Cough that won't go away ??? Swelling, especially in the feet (edema), legs, or abdomen ??? Tiredness (fatigue) ??? Nauseaor loss of appetite ?? How heart failure affects your body When the heart doesn't pump enough blood, body chemicals (hormones) are sent to increase the amountof work the heart does. Some hormones make the heart grow larger. Others tell the heart to pump faster. As a result, the heart may pump more blood at first, but it can't keep up with the ongoing demands. So, the heart muscle becomes even more weak. Over time, even less blood is pumped through the heart. This leads to problems throughout the body as organs start to feel the effects of a long-term lack of oxygen. If not treated, over time this can cause problems with your lungs, liver, and kidneys. Long-term (chronic) leg swelling (edema) can also cause skin changes and breakdown. A weak heart itself can eventually cause a severe decline in health and possible if left untreated. ?? What is ejection fraction? Left ventricular ejection fraction (LVEF) is a measurement of how well your heart pumps blood. It measures how much blood in the heart's ventricle is pumped out (ejected) with each heartbeat. This ismeasured to help diagnose heart failure. A healthy heart pumps at least half of the blood from the ventricles with each beat. This means a normal ejection fraction is around 50% to 70%. There are four groupings of HF measured through LVEF. ??? HFrEF. LVEF is 40% or less. (systolic HF) ??? HFmrEF. LVEF is 41% to 49% with higher filling pressure in the left ventricle. (systolic HF) ??? HFimpEF. A past LVEF less than 40% and a follow-up amount of LVEF greater than 40%. (systolic HF) ??? HFpEF. LVEF is 50% or more with higher filling pressure in the left ventricle. (diastolic HF) ?? Your healthcare provider will calculate ejection fraction from an echocardiogram or other tests. Your healthcare provider can talk with you about treatment options and how to improve your EF. ?? My ejection fraction Date: Ejection fraction: Test used: ?? How daily issues affect your health Many things in your daily life impact your health. This can include transportation, money problems,housing, access to food, and director of early childhood education. If you can???t get to medical appointments, you may not receive the care you need. When money is tight, it may be difficult to pay for medicines. And living far from a grocery store can make it hard to buy healthy food. If you have concerns in any of these or other areas, talk with your healthcare team. They may know of local resources to assist you. Or they may have a staff person who can help. ?? Last Reviewed Date: 2021 ?? 1314-1172 [employer] [facility] [employer]. All rights reserved. This information is not intended as a substitute for professional medical care. Always follow your healthcare professional's instructions. ?? * Jenn Davalos RN: PERFORM Event Display: Patient Education Leaflets Authored Date: [id number] Heart Failure: Warning Signs of a Flare-Up ?? 51855 Heart Failure: Warning Signs of a Flare-Up You have heart failure. Once you have heart failure, flare-ups can happen. Below are signs that canmean your heart failure is getting worse. If you notice any of these warning signs, call your healthcare provider. Swelling ??? Your feet, ankles, or lower legs get puffier. ??? You notice skin changes on your lower legs. ??? Your shoes feel too tight. ??? Your clothes are tighter in the waist. ??? You have trouble getting rings on or off your fingers. ?? Shortness of breath ??? You have to breathe harder even with normal activity or at rest. ??? You'reshort of breath walking up stairs or even short distances. ??? You wake up at night short of breathor coughing. ??? You need to use more pillows or sit up to sleep. ??? You wake up tired or restless. ?? Other warning signs ??? You feel weaker, dizzy, or more tired. ??? You have chest pain or changes in your heartbeat. ??? You have a cough that won???t go away. ??? You can???t remember things or don???t feel like eating. ??? You have trouble sleeping. ?? Tracking your weight Gaining weight is often the first warning sign that heart failure is getting worse. Gaining even a few pounds can be a sign that your body is retaining excess water and salt.??Weighing yourself each day in the morning after you pee and before you eat, is the best way to know if you're retaining water. Get a scale that's easy to read. Make sure you wear the same clothes and use the same scale every time you weigh yourself. Your healthcare provider will show you how to track your weight. Call your provider if you gain: ??? More than?? 2 pounds in 1 day ??? More than ?? 5 pounds??in 1 week ??? Or whatever weight gain you were told to report by your provider This has to be evaluated and treated before it affects your breathing. Your provider will tell you what to do next.? Last Reviewed Date: 2021 ?? The [facility] [employer]. All rights reserved. This information is not intended as a substitute for professional medical care. Always follow your healthcare professional's instructions. ?? * Jenn Davalos RN: PERFORM Event Display: Patient Education Leaflets Authored Date: [id number] COPD Flare-Up ?? [id number] COPD Flare-Up You have had a flare-up of your COPD. COPD (chronic obstructive pulmonary disease) is a common lung disease. It causes your airways to get irritated and narrower. This makes it harder for you to breathe. Emphysema and chronic bronchitis are both types of COPD. This is a long-term (chronic) condition. This means you always have it. Sometimes it gets worse. When this happens, it's called a flare-up. Symptoms of COPD People with COPD may have symptoms most of the time. In a flare-up, your symptoms get worse. These symptoms may mean you are having a flare-up: ??? Shortness of breath, shallow or rapid breathing, orwheezing that gets worse ??? Lung infection ??? Cough that gets worse ??? More mucus (or sputum), thicker mucus, or mucus of a different color ??? Tiredness, less energy, or trouble doing your normalactivities ??? Fever ??? Chest tightness ??? Your symptoms don???t get better even when you use your normal medicines, inhalers, and nebulizer ??? Trouble talking ??? You feel confused ?? Causes of flare-ups Unfortunately, a flare-up can happen even if you did everything right, and even if you followed your healthcare provider???s instructions. Some causes of flare- ups are: ??? Cold weather ??? Smoking or secondhand smoke ??? Use of e- cigarettes or vaping products ??? Colds, the flu, or respiratory infections ??? Air pollution ??? Sudden change in the weather ??? Dust, vapors, gases, irritating chemicals, or strong fumes ??? Not taking your medicines as prescribed ??? Indoor pollution such as burning wood, smoke from home cooking, or heating fuels ?? Home care Here are some things you can do at home to treat a flare-up: ??? Keep calm and try not to panic. This makes it harder to breathe, and keeps you from doing the right things. ??? Don???t smoke or be around others who are smoking. If you smoke, quit. Smoking is the main cause of COPD. Quitting will help you be able to better manage your COPD. Don't use e-cigarettes or vaping products either. Ask your healthcare provider about ways to help you quit smoking. ??? Before drinking extra fluids during flare-ups to loosen the mucus, always talk with your healthcare provider first. ??? Eat a healthy, balanced diet. This is important to staying as healthy as possible. So is trying to stay at your ideal weight. Being overweight or underweight can affect your health. Make sure you have a lot of fruits and vegetables every day. And also eat balanced portions of whole grains, lean meats and fish, and low-fat dairy products. ??? Use your inhalers and nebulizer, if you have one, as you have been told to. When using a metered dose inhaler or nebulizer, it's very important to use the proper techniques.If you have any questions about how to use your device, contact your healthcare provider or refer to the user manual. ??? If you were given antibiotics, take them until they are used up or your provider tells you to stop. It???s important to finish the antibiotics even though you feel better. This will make sure the infection has cleared. ??? If you were given a steroid, finish it even if you feel better. ??? Learn the names of your medicines, as well as how and when to use them. Talk with yourprovider about other conditions you have and their treatment and how it may affect your COPD. ??? Oxygen may be prescribed if tests show that your blood contains too little oxygen. Ask your provider about long-term oxygen therapy. ??? Coping tips for shortness of breath include: o Exercise. Try to be as active as possible. This will improve energy levels and strengthen your muscles so you can do more. o Breathing methods. Ask your healthcare provider or nurse to show you how to do pursed-lip breathing. o Balance rest and activity. Each day, try to balance rest periods with activity. For example, you might start the day with getting dressed and eating breakfast. Then you can relax and read the paper. After that, take a brief walk. And then sit with your feet up for a while. o Pulmonary rehab (rehabilitation). Community-based and home-based programs work as well as hospital-based programs as long as they are as often and as intense. Standard home-based pulmonary rehab programs help shortness of breath in people with COPD. Supervised, traditional pulmonary rehab remains the best optionfor people with COPD. These programs help with managing your disease and also help with breathing methods, exercise, support, and counseling. To find one, ask your provider or call your local hospital. Also talk with your healthcare provider about which rehab or self- management program is best for you. ?? Preventing a flare-up Flare-ups happen. But the best way to treat one is to prevent it before it starts. Here are some pointers: ??? Don???t smoke or be around others who are smoking. Avoid using e-cigarettes due to theirharmful side effects. ??? Take your medicines as discussed with your healthcare provider. ??? Talk with your provider about getting a flu shot every year. Also find out if you need a pneumonia shot. ??? If there is a weather advisory warning to stay indoors, try to stay inside when possible. ??? Try to eat healthy, exercise, and get plenty of sleep. ??? Try to stay away from things that normally set you off. These include dust, chemical fumes, hairsprays, or strong perfumes. ?? Follow-up care Follow up with your healthcare provider as advised. If a culture was done, you will be told if your treatment needs to be changed. You can call as directed??for the results. If X-rays were done, you will be told of any new findings that may affect your care. During each appointment, talk with your healthcare provider about your ability to: ??? [place] in yournormal environment ??? Correctly use inhaler (or your medicine delivery systems) ??? [place] with other conditions you have and their treatments and how they may affect your COPD ?? Call 911 Call 911 if any of these occur: ??? Wheezing or shortness of breath does not get better with treatment ??? Chest pain or chest tightness ??? Feeling lightheaded or dizzy ??? You have trouble breathing ??? You feel confused or it???s hard to wake you up ??? You faint or lose consciousness ??? You have a rapid heart rate ??? You have new pain in your chest, arm, shoulder, neck, or upper back ?? When to seek medical advice Call your healthcare provider right away??if??any of these occur: ??? Fever of 100.4??F??(38??C) orhigher, or as directed by your healthcare provider ??? Coughing up lots of dark-colored or bloody mucus (sputum) ??? You don't start to get better within 24 hours or new symptoms develop ??? Swellingof your ankles gets worse ??? Weakness ?? Last Reviewed Date: 2021 ?? 4241-0159 The [facility] [employer] [facility]. All rights reserved. This information is not intended as a substitute for professional medical care. Always follow your healthcare professional's instructions. ?? * Event Display: Hemodynamic Procedure Report Authored Date: * Event Display: Cardiac Rhythm Strips Authored Date: * Event Display: Cardiac Rhythm Strips Authored Date: * Event Display: Provider Clarification Note Please click on pdf link to open report Cardiac catheterization study * Event Display: Cardiac Account Representative Report Authored Date: Cardiac Diagnostic Report Demographics Patient Name ASHLEY MAST Gender Female [employer] N [id number] Room Number M511 Height 60.24 inches Date of 1945 Weight 141.98 pounds Age 77 year(s) BSA 1.62 m2 Accession Number [id number] BMI 27.51 kg/m2 Referring Physician Joni Givens MD Date of Study 07/21/2022 Garfield Singh MD Performing Physician Joni Givens MD Fellow Interventional Physician Procedure Procedure Type Diagnostic procedure:Coronary Angiography with [facility] ACC Diagnostic Catheterization Status:Elective Indications Indications: Congestive Heart Failure. Clinical History Admission Medications + +------+-------+ + + +---------+ !Medication !Dosage!Times !Last !Last !Administered !Comments ! ! ! !Per Day!Delivery !Delivery ! ! ! ! ! ! !Date !Time ! ! ! + +------+-------+ + + +---------+ !Aspirin (any)!81 mg !x 1 !07/21/2022 !00:00 !Yes ! ! + +------+-------+ + + +---------+ Clinical Evaluation Leading to Procedure - The patient's CAD presentation was assessed as: Symptom unlikely to be ischemic. - There were no anginal symptoms. - The patient was diagnosed with a heart failure condition. Heart failure type: Systolic. 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 ACC Risk Factors The patient risk factors include:treated hypercholesterolemia, treated hypertension, chronic lung disease, last creatinine: 1.1 mg/dl, creatinine clearance: 42.85 ml/min, dyslipidemia and former tobacco use. Additional Clinical History:77-year-old female with history of sick sinus syndrome status post permanent pacemaker placement, COPD with supplemental home oxygen 1 to 2 L, hypertension, hyperlipidemia who presented to the hospital with shortness of breath and found to have newly diagnosed heart failure with reduced ejection fraction with EF of 25 to 30%. She is also found to have influenza A infection. She is scheduled for left heart catheterization with coronary angiogram. No contrast allergy and normal renal function. Procedure Data Procedure Date Date: 07/21/2022tart: 11:33End: 12:08 The procedure was explained in detail to the patient. Risks, complications and alternative treatments were reviewed. Written consent was obtained. Entry Locations - Retrograde Percutaneous access was performed through the Right Radial artery. A 6 Fr sheath was inserted. Hemostasis was successfully obtained using Prelude Sync EZ. Closure Comments: 11 cc's. Procedure Medications - Versed (Midazolam) I.V. 1 mg. - Fentanyl I.V. 25 mcg. - Lidocaine 2% S.C. Right Wrist 5 ml. - Heparin I.V. 3000 units. Sedation: My intra-service moderate sedation time was: from 1148 to 1208. Refer to procedural log for detailed chronological information. Contrast Material - Omnipaque 25 ml Diagnostic Catheters - [id number] RADIAL TIG 4.0 RADIFOCUS OPTITORQUE CATHETERwas used for: Left heart catheterization. - [id number] RADIAL TIG 4.0 RADIFOCUS OPTITORQUE CATHETERwas used for: Left coronary angiography. - [id number] RADIAL TIG 4.0 RADIFOCUS OPTITORQUE CATHETERwas used for: Right coronary angiography. Fluoroscopy Time: Diagnostic: 2:06 minutes. Total: 2:06 minutes. Fluoroscopy Dose: Diagnostic: 170 mGy. Total: 170 mGy. Dose Area Product:Diagnostic: 50184 mGy/cm2. Total: 71791 mGy/cm2. Dose Area Product:Diagnostic: 1476.1 ??Gy/m2. Total: 1476.1 ??Gy/m2. Procedure Narrative Patient is seen and examined in the Account Representative. The description of the procedure and the risk and benefit including bleeding, radial spasm, contrast-induced nephropathy, TX, stroke, , angioplasty related dissection or perforation were mentioned to the patient. The patient understood and agreed to proceed with the procedure. Right radial artery access was obtained and a 6 [place] sheath was placed. The diagnostic angiogram was performed with [place] diagnostic catheter. LVEDP was measured along with pullback gradient across aortic valve. At the end of the procedure, the sheath was removed and a TR band was placed. Angiographic Findings Cardiac Arteries and Lesion Findings LMCA: Mild luminal irregularities (<30%). LAD: Mild luminal irregularities (<30%). LCx: Mild luminal irregularities (<30%). RCA: Mild luminal irregularities (<30%). Hemodynamics Condition: Rest O2 Consumption: Estimated: 155.72Heart Rate: 85 bpm Pressures (mmHg) +-----+ + !Site !Pressure ! +-----+ + !LV !125/0 ,14 ! +-----+ + !AO !126/63 (90)! +-----+ + !LV !124/0 ,11 ! +-----+ + !AO !130/67 (93)! +-----+ + Valve Gradients and Areas +------+----+----+----+-----+----+------+ !Valve !Peak!Mean!Area!Index!Flow!Source! +------+----+----+----+-----+----+------+ !Aortic!0 !0 ! ! ! ! ! +------+----+----+----+-----+----+------+ !Aortic!0 !0 ! ! ! ! ! +------+----+----+----+-----+----+------+ Shunts Oxygen Values O2 Capacity 176.8 O2 Consumption 155.72 Interventional Procedure Conclusions Diagnostic Summary 77-year-old female who presented to the hospital with dyspnea and found to have heart failure with reduced ejection fraction with EF of 25 to 30% in the setting of influenza A. LVEDP 14 mmHg. No significant pullback gradient across aortic valve. Diagnostic angiogram revealed mild luminal irregularities of the LMCA, mild luminal irregularities of the LAD, mild luminal irregularities of the LCx and mild luminal irregularities of the RCA. The above-mentioned finding indicates that patient has nonischemic cardiomyopathy, most possible reason could be stress-induced cardiomyopathy. Diagnostic Recommendations Aggressive secondary risk factor modification according to ATP III guidelines. Guideline directed medical management for heart failure with reduced ejection fraction. Considering possible stress induced cardiomyopathy, repeat echocardiogram in 2 to 3 months with guideline medical management be considered as outpatient. Follow-up with Dr. Chaidez in 2 to 3 months. Signatures * Event Display: Cardiac Account Representative Report Authored Date: History and physical note * Ludivina JURADO, Garfield P: PERFORM Event Display: History and Physical Hospital Authored Date: [id number] Patient: ??PRO RAMIREZ ? Age:??77 Years?Sex:??Female?:??1945?? Chief Complaint/Reason for Consultation Txfr from [facility] for NSTEMI, CHF. History of Present Illness 77 year old female with history of SSS, s/p pacemaker, CHFpEF, COPD with chronic hypoxic respiratory failure on 1-2L supplemental O2 at baseline, JEIMY, hypertension, hyperlipidemia, hyponatremia, Meniere's disease, and osteoporosis who presented to [facility] on 07/16/22 with progressive shortness of breath over a 1 month timeframe.?? She endorsed dry cough, orthopnea, and PND.?? She did nothave chest pain or significant worsening lower extremity edema, but did endorse weight gain.?? She was using 3L NC O2 at home without significant relief, and had at least 2 courses of steroids / Azithromycin which helped only temporarily.?? She did not have fever or sore throat.?? No reported vomiting, abdominal pain, or urinary symptoms.?? She did endorse some loose stools as well. ?? Workup at [facility] revealed Influenza A, and the patient was started on Tamiflu.?? She did have bronchospasm initially.?? Chest xray showed patchy airspace disease at the perihilar and lower lung hancock with pulmonary venous congestion and cardiomegaly.?? CT Angio ruled out PE.?? She did receive a course of??Solumedrol, bronchodilators, Azithromycin, and Ceftriaxone.?? BNP was elevated and she was diuresed with Lasix 40 mg IV twice daily.?? EKG showed RBBB and precordial T wave inversions.?? Troponin values were all elevated over 3600 and the patient was initiated on heparin drip.?? Echocardiogram was obtained showing EF 25-30% with multiple regional wall motion abnormalities, possibly related to plaque rupture in the LAD territory versus stress induced cardiomyopathy.?? Pacemakerwas noted to be functioning normally. ?? The patient has now been transferred here to [facility] for cardiac catheterization.?? She has no chestpain and states her breathing has improved after treatments at [facility].?? She remains afebrile and hemodynamically stable. Review of Systems Other than those positives as noted in the HPI above, the remaining comprehensive 14-point review of systems is negative. Objective Measurements?? Height: 153 cm (07/19/22) Weight: 64.4 kg (07/19/22) Dry Weight: 64.4 kg (07/19/22) Body Mass Index:??27.51 kg/m2??High (07/19/22) ? Vital Signs?? Temperature: 98.1 DegF (07/19/22 15:29:00) Temperature Route: Oral (07/19/22 15:29:00) Pulse Rate:??95 bpm??High (07/19/22 15:29:00) Respiratory Rate: 19 br/min (07/19/22 15:29:00) Systolic Blood Pressure: 113 mm Hg (07/19/22 15:29:00) Diastolic Blood Pressure: 71 mm Hg (07/19/22 15:29:00) Blood pressure sites: Arm, right (07/19/22 15:29:00) Mean Arterial Pressure: 85 mm Hg (07/19/22 15:29:00) Pulse Pressure: 42 mm Hg (07/19/22 15:29:00) Oxygen Saturation: 95 % (07/19/22 15:29:00) Liters per Minute: 3 L/min (07/19/22 15:29:00) Mode of Delivery (Oxygen): Nasal cannula (07/19/22 15:29:00) Early Warning Score: 2 (07/19/22 15:48:16) ? Pain Scores?? No qualifying data available. ? Physical Exam General Appearance: Alert, appears chronically ill, pleasant, answers questions appropriately, hardof hearing HEENT: Normocephalic, atraumatic, PERRL, EOMI, no scleral icterus, no facial droop, moist mucous membranes, no oropharynx lesions?? Neck: Supple, no JVD, no C-Spine tenderness, no LAD Cardiac: RRR, S1 & S2 present, no m / r / g appreciated Chest: Minimal expiratory wheezes and otherwise coarse breath sounds,??no tenderness to percussion Abdomen: Soft, nontender, obese, no rebound or guarding, no masses, no organomegaly, normal bowel sounds in all quadrants Extremities: No clubbing, cyanosis, or edema. ??2+ distal pulses. ??Capillary refill < 3 seconds. ??No calf tenderness or cords Skin: Warm, no rash or open wounds Neuro: ??A & O x 3, CN III-XII intact, strength 5/5 of upper / lower extremities bilaterally, gross sensation intact Psych: ??Stable mood, appropriate affect Assessment/Plan Assessment:??77 year old female with history of SSS, s/p pacemaker, CHFpEF, COPD with chronic hypoxic respiratory failure on 1-2L supplemental O2 at baseline, JEIMY, hypertension, hyperlipidemia, hyponatremia, Meniere's disease, and osteoporosis who presented to [facility] on 07/16/22 with progressive shortness of breath over a 1 month timeframe.??Workup revealed acute on chronic hypoxic respiratory failure likely from multifactorial causes, with influenza A, COPD exacerbation, new heart failure, and NSTEMI.??She has been transferred here to [facility] for cardiac catheterization. ?? Acute on chronic respiratory failure with hypoxia (J96.21):??Multifactorial in the setting of Influenza A infection, COPD exacerbation, new systolic congestive heart failure, and NSTEMI.??The patientimproved with multimodal treatments as outlined.??She never had chest pain.??No evidence for VTE onimaging.?? Titrate supplemental O2. Treatment plans as outlined. ?? NSTEMI (non-ST elevation myocardial infarction) (I21.4) Acute systolic congestive heart failure (I50.21):??Acute type I NSTEMI is possible in the LAD territory.??Also in the differential diagnosis is stress- induced cardiomyopathy (in the setting of illness) or possible Influenza- mediated myocarditis.??She has diuresed well and maintained hemodynamic stab ility.??Cr up to 1.2 prior to transfer today. We will change IV furosemide to oral dosing and continue to monitor strict I/O's, daily weights, and metabolic panel. Continue heparin drip per ACS protocol, monitor PTT and daily CBC. Continue aspirin, statin, and lisinopril (monitor renal function). Ideally would like to add carvedilol and/or spironolactone??to her regimen as BP tolerates, will discuss with Cardiology. Patient will be NPO after midnight for cardiac catheterization tomorrow.??Consult placed to Cardiology. ?? Influenza A (J10.1) COPD with acute exacerbation (J44.1):??The patient has minimal wheezing on exam today.??She has completed courses of IV steroids and antibiotics at [facility], but I am not convinced she had bacterial pneumonia.?She likely had reactive airway disease in the setting of Influenza A infection. We will complete course of Tamiflu (75 mg daily for 2 more days). Resume steroid inhaler (Breo Ellipta on formulary here). Continue scheduled Duonebs and as needed every 4 hours. Tessalon perles as needed for cough. Titrate supplemental O2. ?? Hypertension (I10) Hyperlipidemia (E78.5):??Blood pressure is well controlled here. Renal function has been monitored at [facility] with Cr up to 1.2 prior to transfer (after IVdiuresis). We will continue Lasix (40 mg PO bid) and lisinopril.??Check renal function here. Continue ASA and pravastatin as prescribed. ?? Hyponatremia (E87.1):??Blood??sodium at baseline, 132 at [facility]. We will check metabolic panel here. ?? VTE Prophylaxis:??On Heparin drip. ?VTE Prophylaxis Assessment:??Excluded from VTE prophylaxis measure ?? Code Status:??FULL. ?Order Code Status:??Code Status Ordered ?? Discharge Planning:??Anticipate home with family, 2-3 days. ?? I spent a total of??85 minutes today reviewing the chart / medical records, evaluating the patient,evaluating and interpreting laboratory and imaging data, formulating and discussing the treatment plan, and documenting the encounter. ? Histories Allergies Allergies ?(Active and Proposed Allergies Only) montelukast? (Severity: Unknown severity, Onset: Unknown) gemifloxacin? (Severity: Unknown severity, Onset: Unknown) predniSONE? (Severity: Unknown severity, Onset: Unknown) ? Past Medical History/Problem List Active Problems??(11) Chronic respiratory failure with hypoxia Congestive heart failure COPD mixed type Hyperlipidemia Hypertension Hyponatremia Meniere's disease JEIMY (obstructive sleep apnea) Osteoporosis Pacemaker SSS (sick sinus syndrome) ? Past Surgical History Pacemaker ? Social History Tobacco:?? Former smoker, heavy in past, quit years ago. ETOH:?? Former heavy??use, denies any in years. Drugs:?? Denies. ?? The patient lives with her spouse.?? She ambulates independently. ? Family History Mother:?? COPD. Father:?Lung cancer. ? Medications Home Medications Albuterol (Albuterol (Eqv-ProAir HFA) 90 mcg/inh inhalation aerosol)?2?puff(s)?Inhalation?Every 6 hours?as needed?Wheezing/Shortness of Breath Aspirin (aspirin 81 mg oral delayed release tablet)?81?Milligram?1?tablet?By Mouth?Daily Calcium Carbonate (calcium carbonate 600 mg oral tablet)?1?tab(s)?600?Milligram?By Mouth?2 times a day Cetirizine (cetirizine 10 mg oral tablet)?1?tab(s)?10?Milligram?By Mouth?Daily atbedtime Cholecalciferol (cholecalciferol 50 mcg (2000 intl units) oral tablet, chewable)?1?tab(s)?50?Microgram?By Mouth?Daily Fluticasone Nasal (fluticasone 50 mcg/inh nasal spray)?1?spray(s)?Nares, Both?2 times aday Fluticasone-Salmeterol (Advair Diskus 250 mcg-50 mcg inhalation powder)?1?puff(s)?Inhalation?2 times a day Furosemide (furosemide 40 mg oral tablet)?40?Milligram?1?tablet?By Mouth?2 times a day Lisinopril (lisinopril 40 mg oral tablet)?1?tab(s)?40?Milligram?By Mouth?Daily Magnesium Oxide (magnesium oxide 400 mg oral tablet)?1?tab(s)?400?Milligram?By Mouth?Daily at bedtime?for 10?Days Multivitamin?1?tab(s)?By Mouth?Daily Oseltamivir (oseltamivir 30 mg oral capsule)?1?capsule?30?Milligram?By Mouth?2 times a day?for 2?Days Pravastatin (pravastatin 20 mg oral tablet)?20?Milligram?1?tablet?By Mouth?Daily at bedtime ? Hospital Progress note * Jenn Davalos RN: PERFORM, SIGN, VERIFY Event Display: Progress Note Hospital Authored Date: Patient: PRO RAMIREZ Age: 77 years Sex: Female : 1945 Associated Diagnoses: None Author: Jenn Davalos RN Findings Problem Related to Alteration in Cardiac Function (new) : (Date Range: 07/21/2022 0:00 EST - 07/23/2022 10:43 EST). Nursing Data Vital Signs : VITAL SIGNS SECTION 07/23/2022 8:34 EST Early Warning Score 2.00 07/23/2022 8:19 EST Early Warning Score 2.00 07/23/2022 8:19 EST Temperature 97.6 DegF Temperature Route Oral Pulse Rate 72 bpm Respiratory Rate 20 br/min Systolic Blood Pressure 112 mm Hg Diastolic Blood Pressure 72 mm Hg Blood pressure sites Arm, right Mean Arterial Pressure 85 mm Hg Pulse Pressure 40 mm Hg Oxygen Saturation 98 % Liters per Minute 3 L/min Mode of Delivery (Oxygen) Nasal cannula . Evaluation pt alert oriented , denies angina , sob , nausea, lightheadedness, dizziness, tele sr with ivcd , oob with contact guard voiding in br ,refused lopressor , wants to go home see biophys andflow sheet , continue to monitor hemodynamics , plandischargetoday per dr scott. * Courtney Calhoun RN: PERFORM, SIGN, VERIFY Event Display: Progress Note Hospital Authored Date: Patient: PRO RAMIREZ Age: 77 years Sex: Female : 1945 Associated Diagnoses: None Author: Courtney Calhoun RN Findings Nursing Data Cardiac Data. : Cardiac Data. 07/22/2022 21:18 EST Cardiovascular Symptoms None Nail Bed Color, Fingers [place] Nail Bed Color, Toes [place] Skin Temperature Upper Extremities Warm Skin Temperature Lower Extremities Warm Heart Rhythm Irregular Pacemaker Yes Cardiac Rhythm Atrial fibrillation Capillary Refill < 3 seconds Radial Pulse, Left Normal Radial Pulse, Right Normal Dorsalis Pedis Pulse, Left Normal Dorsalis Pedis Pulse, Right Normal monitoring coordinator Yes Cardiovascular WNL except . Vital Signs : VITAL SIGNS SECTION 07/22/2022 21:22 EST Systolic Blood Pressure 112 mm Hg Diastolic Blood Pressure 59 mm Hg Blood pressure sites Arm, right Pulse Pressure 53 mm Hg 07/22/2022 21:00 EST Pulse Rate Not Done: Patient Refused (Not Done) Systolic Blood Pressure Not Done: Patient Refused (Not Done) Diastolic Blood Pressure Not Done: Patient Refused (Not Done) 07/22/2022 20:54 EST Early Warning Score 1.00 07/22/2022 20:52 EST Temperature 98.3 DegF Temperature Route Oral Pulse Rate 77 bpm Respiratory Rate 20 br/min Systolic Blood Pressure 94 mm Hg Diastolic Blood Pressure 61 mm Hg Blood pressure sites Arm, left Mean Arterial Pressure 72 mm Hg Pulse Pressure 33 mm Hg Oxygen Saturation 97 % Liters per Minute 3 L/min Mode of Delivery (Oxygen) Nasal cannula . Evaluation pt is alert and oriented x4. lung sounds clear bilat on 3L NC sating 97%. afib on the monitor in the 70s. +pulses. pt denies chest pain, pressure, palpitations, sob. pt refused metoprolol tonight stating that she didn't like the way the medication made her feel. pt says she would like to not continue this med. made aware. +BS last bm 07/22. voiding concentrated yellow urine in bathroom. 1 assist to ambulate. right radial site c/d/i. pt resting comfortably in bed with call dasilva in reach. safety maintained. see biophysical for full assessment. . * Charlie Curtis RN: VERIFY, SIGN, PERFORM Event Display: Progress Note Hospital Authored Date: Patient: PRO RAMIREZ Age: 77 years Sex: Female : 1945 Associated Diagnoses: None Author: Charlie Curtis RN Findings Nursing Data Vital Signs : VITAL SIGNS SECTION 07/22/2022 7:40 EST Early Warning Score 5.00 07/22/2022 7:40 EST Temperature 97.6 DegF Temperature Route Oral Pulse Rate 79 bpm Respiratory Rate 19 br/min Systolic Blood Pressure 98 mm Hg Diastolic Blood Pressure 64 mm Hg Mean Arterial Pressure 75 mm Hg Pulse Pressure 34 mm Hg Oxygen Saturation 91 % L Liters per Minute 2.5 L/min Mode of Delivery (Oxygen) Nasal cannula . Evaluation Pt in bed, AOx4. Pt currently denies CP, SOB, & ANY PAIN. Pt is NSR on monitor, L/S: clear bilat, + CSM. Bed in lowest locked position, call dasilva within reach, non-slip socks on. Will continue tomonitor & report any changes.. Discharge Information Cardiac Rehab Discharge : Cardiac Rehab 07/22/2022 12:17 EST Patient attending Phase II Yes Where will pt be attending II [facility] [address] [phone] Orientation appointment 08/16/2022 10:30 Deprecated Cardiac rehabilitation treatment plan Progress note and attainment of goals (narrative) * Marie Lopez RN: VERIFY, PERFORM, SIGN Event Display: Cardiac Rehab Note Authored Date: Patient: PRO RAMIREZ Age: 77 years Sex: Female : 1945 Associated Diagnoses: None Author: Marie Lopez RN Diagnosis Cardiac Rehab Diagnosis: NSTEMI/ CHF/ ?stress induced cardiomyopathy from flu A s/p cath with no obstructive CAD. Pre-exercise Vitals Vital Signs: 80 HR, 105/68 BP Sitting, 95% 2-3L O2 SaO2. Vital Signs Comment: Reviewed in [facility]. Pre-exercise Physical Examination Neurologic: alert & oriented. Lungs: Normal I:E. Activity Symptoms with Cardiac Rehab Symptoms: Fatigue. Activity Activity tolerance: Change in activity tolerance decreased. Transfers: with assist, assist x 1 . Ambulate: with assist, assist x 1 , Pt ambulated 50 ft around room with 1 assist. Pt feels very deconditioned, is very active at baseline at home, looking forward to outpatient cardiac rehab. Encouraged home walking, increase as tolerated, pt also does exercises she learned at pulmonary rehab, willcontinue with those as well. Assistive Devices Assistive Device: None. Compliance problems: Compliance problems: Pt is very compliant with low sodium diet- follows a 1200mg sodium restriction.. . Patient Education Education: Family present, Written material included, Post procedure guidelines, Heart failure booklet reviewed, radial site care and management. Education topic Teachback comprehension 75% Topic: Pathophysiology, Diabetes management, Medication education, Role of exercise, Stress management, Home activity guidelines/limits, CHF guidelines, Infarct recovery guidelines. Reinforcement needed: Pathophysiology, Home activity guidelines/limits. Recommendation and Plan Ambulate: 3-5 times/day. Encourage: Incentive spirometer. Outpatient follow up recommended: [facility], pt/ requested appointment be scheduled for about 3 weeks from now so she can fully recover from the flu. Pt is feeling much better sinceadmission.. Cardiac Rehab: Will sign off at this time, Please contact us if we can provide further assistance with this patient, Pager [phone] plan for DC in next 24 hours.. Recommendation comment: RN notified of plan. Patient Care team information Care Team Personnel Name: Diana Saravia Position: [facility] RN Supv Member Role: Primary Care Nurse Name: Freiad Yarbrough MD Position: [facility] Physician (General Medicine) Member Role: PCP Address: Address: [address], [place] [address] [[email or web address] Name: Tere Jenkins RN Position: [facility] RN Member Role: Primary Care Nurse Care Team Related Persons Name: SINA TURNER Address: [address] [place] [address] Name: ANDREW VUONG Address: [address] [place] [address]
--- NOTE | 2023-11-10 09:19 | AM.OFFWIN_ITS ---
Intake Vital Signs 3 11/10/23 09:22 Height 5 ft Weight 114 lb BMI 22.3 BP 128/66 Blood Pressure Location Rt brachial Position Sitting Pulse 72 Pulse Source Pulse Oximeter Pulse Oximetry (%) 90 L Oxygen Delivery Method Room Air Intake Visit Reasons: EP hurt lft leg open wound (elequis) Patient Tobacco Use Status: Former Tobacco user Quit Date: 1989 Allergies gemifloxacin Allergy (Unknown, Verified 11/10/23 09:22) Rash montelukast [Singulair] Allergy (Unknown, Verified 11/10/23 09:22) mood swings Medication List - Last Reconciled 11/10/23 by Willi Choudhary MD acetaminophen 650 mg PO Q6H PRN albuterol sulfate 90 mcg/actuation 2 puffs inhalation QID PRN albuterol sulfate 0.63 mg (3 mL) inhalation Q4-6H PRN amlodipine 2.5 mg PO DAILY apixaban (Eliquis) 5 mg PO BID calcium carbonate (Calcium) 600 mg PO BID cetirizine (Zyrtec) 10 mg PO DAILY ferrous sulfate 324 mg PO TUTHSA fluticasone propionate 50 mcg/actuation 2 sprays intranasal BID fluticasone propionate 50 mcg/actuation 1 inh inhalation BID furosemide 20 mg PO BID ipratropium-albuterol 0.5 mg-3 mg(2.5 mg base)/3 mL 3 mL inhalation Q8H levothyroxine 25 mcg PO DAILY@0600 magnesium 400 mg PO BEDTIME multivitamin (Daily Multi-Vitamin tablet) 1 tab PO DAILY omeprazole 20 mg PO DAILY peg 400-propylene glycol (PF) 0.4-0.3 % (Systane (PF)) 1 drp ophthalmic (eye) BID potassium chloride ER 20 mEq PO DAILY pravastatin 20 mg PO BEDTIME Wixela Inhub 500-50 mcg/dose (fluticasone propion-salmeterol) 1 inh inhalation BID NS zoledronic guht-uykpzqvk-ncccq 5 mg/100 mL (Reclast) 1 ea IV ONCE HPI EP hurt lft leg open wound (elequis) 2 HPI0 Details Patient is 78-year-old female came in today to be evaluated for like food that patient encountered 2 days ago, patient says that something heavy fell on her leg She has been taking care of it at home, this morning she noticed little bit of redness which came in for evaluation Patient is on Eliquis secondary to paroxysmal atrial fibrillation On examination she has no pus or any yellow discharge there is slight erythema at the bottom of the wound Skin flap is off She is going to be changing dressings herself at home, patient is to come back next week for re-evaluation Meanwhile I have sent Augmentin for patient to be taken 2 times a day for next 5 days. [facility] Medical History Osteoporosis Cardiac pacemaker in situ HTN (hypertension) PAF (paroxysmal atrial fibrillation) COPD (chronic obstructive pulmonary disease) CHF (congestive heart failure) Chronic anticoagulation Renal failure Rhabdomyolysis Pneumonia Hyponatremia Hyperlipemia SSS (sick sinus syndrome) Meniere disease Sleep apnea Surgical History History of permanent cardiac pacemaker placement History of endoscopy History of hysterectomy History of cardiac cath Family History Father Lung cancer Mother COPD (chronic obstructive pulmonary disease) Social History Household Members: Spouse Housing: House Do you presently have visiting nurse or other home services: Yes (VNA and OT) Alcohol intake: never Patient Tobacco Use Status: Former Tobacco user Quit Date: 1989 Years Smoked: 30 +/- e-Cigarette/Vaping Use: Never Used Second Hand Smoke Exposure: No Advance Directives Date on File: 02/06/23 service: No Current occupational status: retired Cognitive needs: No Hearing needs: Yes Vision needs: Yes Review of Systems Const All systems reviewed & are unremarkable except as noted in HPI and below Physical Exam Vital Signs: Last Vital Signs Pulse 72 11/10/23 09:22 BP 128/66 11/10/23 09:22 Pulse Ox 90 L 11/10/23 09:22 Oxygen Delivery Method Room Air 11/10/23 09:22 BMI result Body Mass Index 22.3 Const General: no acute distress Orientation/consciousness: patient oriented x3 Eyes General: appearance normal, both eyes and all related structures Resp Effort & Inspection: normal respiratory effort and able to speak in complete sentences Auscultation: clear to auscultation bilaterally Cardio Other: S1 S2 Neuro General: patient oriented x3 Extrem Upper/lower leg/hip images: 2 1. Open flap wound your leg anteriorly with slight erythema at the bottom, no signs of pus Psych Mental Status: mental status grossly normal Assessment & Plan Assessment & Plan (1) Traumatic open wound of left lower leg with infection: Code(s): S81.802A - Unspecified open wound, left lower leg, initial encounter; L08.9 - Local infection of the skin and subcutaneous tissue, unspecified Qualifiers: Encounter type: initial encounter Qualified Code(s): S81.802A - Unspecified open wound, left lower leg, initial encounter; L08.9 - Local infection of the skin and subcutaneous tissue, unspecified Plan Patient is 78-year-old female came in today to be evaluated for like food that patient encountered 2 days ago, patient says that something heavy fell on her leg She has been taking care of it at home, this morning she noticed little bit of redness which came in for evaluation Patient is on Eliquis secondary to paroxysmal atrial fibrillation On examination she has no pus or any yellow discharge there is slight erythema at the bottom of the wound Skin flap is off She is going to be changing dressings herself at home, patient is to come back next week for re-evaluation Meanwhile I have sent Augmentin for patient to be taken 2 times a day for next 5 days. Wound was cleaned with saline and new dressing applied Medications: New 2 amoxicillin-pot clavulanate 875-125 mg 1 tab PO BID 5 days 10 tabs 0RF Coding Level of Care Code Est Pt Level 4 (03379) Diagnoses Traumatic open wound of left lower leg with infection, initial encounter S81.802A; L08.9 Encounter type: initial encounter
[2023-11-10 09:22] VITALS: BP 128/66; PULSE 72; O2SAT 90; BMI 22.3
== END 2023-11-10 12:21 | disposition home or self-care (01) ==
PROVIDERS: PCP Internal Medicine; Visit Provider Internal Medicine
DX: S81.802A Unspecified open wound, left lower leg, initial encounter (principal); L08.9 Local infection of the skin and subcutaneous tissue, unspecified
CPT/HCPCS: 99214

== ENCOUNTER → 2023-11-26 23:59 | Outpatient (BNV) | payer MEDICARE, SELFPAY ==
[2023-11-10 09:05] VITALS: BP 118/60; BP 90/52; BP 92/48; BMI 25.0
--- NOTE | 2023-12-25 12:01 | MHC.OFFVIS ---
Intake Visit Reasons: Remote device check- [facility] Allergies gemifloxacin Allergy (Unknown, Verified 12/12/23 09:33) Rash montelukast [Singulair] Allergy (Unknown, Verified 12/12/23 09:33) mood swings [facility] Medical History (Updated 12/12/23 @ 10:32 by Freida Yarbrough MD) Osteoporosis Cardiac pacemaker in situ HTN (hypertension) PAF (paroxysmal atrial fibrillation) COPD (chronic obstructive pulmonary disease) CHF (congestive heart failure) Chronic anticoagulation Renal failure Rhabdomyolysis Pneumonia Hyponatremia Hyperlipemia SSS (sick sinus syndrome) Meniere disease Sleep apnea Surgical History History of permanent cardiac pacemaker placement History of endoscopy History of hysterectomy History of cardiac cath Family History Father Lung cancer Mother COPD (chronic obstructive pulmonary disease) Social History Household Members: Spouse Housing: House Do you presently have visiting nurse or other home services: Yes (VNA and OT) Alcohol intake: never Patient Tobacco Use Status: Former Tobacco user Years Smoked: 30 +/- e-Cigarette/Vaping Use: Never Used Second Hand Smoke Exposure: No Advance Directives Date on File: 02/06/23 service: No Current occupational status: retired Cognitive needs: No Hearing needs: Yes Vision needs: Yes Office Procedures Cardiac Device Check Cardiac Device Check Details: [place] PPM Good battery AP 76%, [employer]IRE[employer]SULT[employer] 29%. No new alerts. 15786-BC Cardiac Device Check, leadless/single lead pacemaker Procedure code (CPT) selection complete Assessment & Plan Assessment & Plan (1) Cardiac pacemaker in situ: Code(s): Z95.0 - Presence of cardiac pacemaker Category: Medical Plan Coding Level of Care Code Procedure Only Diagnoses Cardiac pacemaker in situ Z95.0 CPT Codes Cardiac Device Check - Cardiac Device 1: 05023-GS Cardiac Device Check, leadless/single lead pacemaker ([id number])
== END ==
PROVIDERS: PCP Internal Medicine; Visit Provider Internal Medicine Cardiovascular Disease
DX: Z45.018 Encounter for adjustment and management of other part of cardiac pacemaker (principal)
CPT/HCPCS: 93294

== ENCOUNTER 2023-12-12 09:28 | Outpatient (AMB) | payer MEDICARE, SELFPAY ==
--- NOTE | 2023-12-12 09:30 | MHC.PC.OV ---
Vital Signs 12/12/23 09:31 Height 5 ft Weight 116 lb BMI 22.7 BP 118/62 Blood Pressure Location Lt brachial Position Sitting Pulse 64 Pulse Source Pulse Oximeter Pulse Oximetry (%) 91 L Oxygen Delivery Method Nasal Cannula Intake Visit Reasons: 2 month follow Intake Note: Pt is here today for 2 months follow up visit. Allergies gemifloxacin Allergy (Unknown, Verified 12/12/23 09:33) Rash montelukast [Singulair] Allergy (Unknown, Verified 12/12/23 09:33) mood swings Medication List - Last Reconciled 12/12/23 by Freida Yarbrough MD acetaminophen 650 mg PO Q6H PRN albuterol sulfate 90 mcg/actuation 2 puffs inhalation QID PRN albuterol sulfate 0.63 mg (3 mL) inhalation Q4-6H PRN amlodipine 2.5 mg PO DAILY apixaban (Eliquis) 5 mg PO BID azithromycin For 250 mg dose pack: take 500 mg today (day 1), then 250 mg for 4 days (days 2-5) PO calcium carbonate (Calcium 600) 600 mg PO BID cetirizine (Zyrtec) 10 mg PO DAILY ferrous sulfate 324 mg PO TUTHSA fluticasone propionate 50 mcg/actuation 2 sprays intranasal BID fluticasone propionate 50 mcg/actuation 1 inh inhalation BID furosemide 20 mg PO BID ipratropium-albuterol 0.5 mg-3 mg(2.5 mg base)/3 mL 3 mL inhalation Q8H levothyroxine 25 mcg PO DAILY@0600 magnesium 400 mg PO BEDTIME multivitamin (Daily Multi-Vitamin tablet) 1 tab PO DAILY omeprazole 20 mg PO DAILY peg 400-propylene glycol (PF) 0.4-0.3 % (Systane (PF)) 1 drp ophthalmic (eye) BID potassium chloride ER 20 mEq PO DAILY pravastatin 20 mg PO BEDTIME prednisone 10 mg PO DAILY silver sulfadiazine 1% 1 appl topical DAILY Wixela Inhub 500-50 mcg/dose (fluticasone propion-salmeterol) 1 inh inhalation BID NS zoledronic ptnj-dnnksmhe-gtwmn 5 mg/100 mL (Reclast) 1 ea IV ONCE Tobacco use date assessed: 10/06/23 Dental Screening Dental Screen Date: 07/25/23 HPI 2 month follow HPI Details Patient presents for the follow-up of hypertension COPD paroxysmal AFib hypothyroidism congestive heart failure with preserved ejection fraction. She is finishing course of prednisone and Z-Estevan for sinusitis and COPD exacerbation but still reports postnasal drip and coughing up green sputum. Patient denies chest pain wheezing PND or orthopnea. 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 Patient needs the PFT results in order to start pulmonary rehab at [facility]. COUNTS INCLUDE 234 BEDS AT THE [facility] Medical History (Updated 12/12/23 @ 10:32 by Freida Yarbrough MD) Osteoporosis Cardiac pacemaker in situ HTN (hypertension) PAF (paroxysmal atrial fibrillation) COPD (chronic obstructive pulmonary disease) CHF (congestive heart failure) Chronic anticoagulation Renal failure Rhabdomyolysis Pneumonia Hyponatremia Hyperlipemia SSS (sick sinus syndrome) Meniere disease Sleep apnea Surgical History History of permanent cardiac pacemaker placement History of endoscopy History of hysterectomy History of cardiac cath Family History Father Lung cancer Mother COPD (chronic obstructive pulmonary disease) Social History Household Members: Spouse Housing: House Do you presently have visiting nurse or other home services: Yes (VNA and OT) Alcohol intake: never Patient Tobacco Use Status: Former Tobacco user Quit Date: 1989 Smoked: 30 +/- e-Cigarette/Vaping Use: Never Used Second Hand Smoke Exposure: No Advance Directives Date on File: 02/06/23 service: No Current occupational status: retired Cognitive needs: No Hearing needs: Yes Vision needs: Yes Questionnaire Thrive Questionnaire Date Thrive assessed: 07/25/23 YUDELKA-7 AMB Questionnaire YUDELKA-7 Date YUDELKA - 7 assessed: 07/25/23 Source: Developed by Drs. Jerry Munoz, Karishma Melgar, Joaquin Ariza and colleagues, with an educational gaby from [employer]. Review of Systems Const All systems reviewed & are unremarkable except as noted in HPI and below Eyes Reports no additional complaints ENT Reports no additional complaints Card Reports no additional complaints Resp Reports no additional complaints GI Reports no additional complaints Reports no additional complaints Physical exam (Primary Care) Vital Signs: Last Vital Signs Pulse 64 12/12/23 09:31 BP 118/62 12/12/23 09:31 Pulse Ox 91 L 12/12/23 09:31 Oxygen Delivery Method Nasal Cannula 12/12/23 09:31 BMI result Body Mass Index 22.7 Tobacco/Smoking Status: Tobacco use Status Tobacco use date assessed 10/06/23 12/12/23 09:39 Patient Tobacco Use Status Former Tobacco user 12/12/23 09:39 e-Cigarette/Vaping Use Never Used 12/12/23 09:39 Thrive Assessment: Date of Thrive Assessment Date Thrive assessed 07/25/23 12/12/23 09:39 Const General: no acute distress HENMT Head: Yes normal to inspection Throat: Yes posterior oropharynx normal Eyes General: appearance normal, both eyes and all related structures Neck Neck: Yes supple Resp Effort & Inspection: normal respiratory effort Auscultation: diminished lung sounds Cardio Rhythm: regular rhythm Heart sounds: S1 normal heart sound present and S2 normal heart sound present GI Inspection: Yes normal to inspection Palpation (GI): Soft to palpation Assessment and Plan Assessment & Plan (1) COPD (chronic obstructive pulmonary disease): Comment: O2 dependent, Dr. Rhoades Code(s): J44.9 - Chronic obstructive pulmonary disease, unspecified Plan: Continue inhalers and supplemental O2 check PFTs and start a pulmonary (2) HTN (hypertension): Code(s): I10 - Essential (primary) hypertension Plan: Continue current medications (3) PAF (paroxysmal atrial fibrillation): Comment: 10/13 Holter frequent APCs, s/p pacemaker for SSS Code(s): I48.0 - Paroxysmal atrial fibrillation Plan: Anticoagulated on Eliquis (4) CHF (congestive heart failure): Comment: echo 08/2019 PVC nl EF, pulmonary hypertension, repeat Echo 07/14 EF 25%, global hypokinesis, negative cardiac cath 07/14, 03/15 LVEF 50% C mod Pul HTN, used to take ACEI 02/12 dc d by pul? Code(s): I50.9 - Heart failure, unspecified Plan: Continue current medications follow-up in 2 months (5) Osteoporosis: Comment: Reclast inj 2021, 2022 at [facility] [place], DEXA 07/15 IMPROVED, last Reclast 10/14 Code(s): M81.0 - Age-related osteoporosis without current pathological fracture Plan: Continue vitamin-D and calcium supplement Orders: Orders Basic Metabolic Panel Today J44.9 - Chronic obstructive pulmonary disease, unspecified Comprehensive [place]. Panel Fast 2 Months I10 - Essential (primary) hypertension, I48.0 - Paroxysmal atrial fibrillation, I50.9 - Heart failure, unspecified Complete Blood Count Auto Diff 2 Months I10 - Essential (primary) hypertension, I48.0 - Paroxysmal atrial fibrillation, I50.9 - Heart failure, unspecified TSH reflex Free T4 2 Months I10 - Essential (primary) hypertension, I48.0 - Paroxysmal atrial fibrillation, I50.9 - Heart failure, unspecified Medications: Refilled azithromycin For 250 mg dose pack: take 500 mg today (day 1), then 250 mg for 4 days (days 2-5) PO 6 tabs 0RF Discontinued prednisone 4 tabl x 3 days then 3 tablx 3 days, then 2 tabl x3days, then 1 qd x 3 days Discontinued Reason: Doctor's Order 10 mg PO DAILY 30 tabs 0RF Coding Level of Care Code Est Pt Level 4 (97737) Diagnoses COPD (chronic obstructive pulmonary disease) J44.9 HTN (hypertension) I10 PAF (paroxysmal atrial fibrillation) I48.0 CHF (congestive heart failure) I50.9 Osteoporosis M81.0
[2023-12-12 09:31] VITALS: BP 118/62; PULSE 64; O2SAT 91; BMI 22.7
== END 2023-12-12 10:17 | disposition home or self-care (01) ==
PROVIDERS: PCP Internal Medicine; Visit Provider Internal Medicine
DX: J44.9 Chronic obstructive pulmonary disease, unspecified (principal); I11.0 Hypertensive heart disease with heart failure; I48.0 Paroxysmal atrial fibrillation; I50.9 Heart failure, unspecified; M81.0 Age-related osteoporosis without current pathological fracture
CPT/HCPCS: 99214

== ENCOUNTER 2023-12-12 10:16 | Outpatient (REF) | payer MEDICARE, SELFPAY ==
[2023-12-12 14:08] LABS: Anion Gap 16 (12-20); Blood Urea Nitrogen 23 mg/dL (9-16); Calcium 10.6 mg/dL (8.4-10.2); Carbon Dioxide 28 mmol/L (22-29); Chloride 103 mmol/L (96-108); Estimated Glomerular Filt Rate 51; Glucose Random 68 mg/dL (60-115); Potassium 3.9 mmol/L (3.3-5.1); Sodium 143 mmol/L (135-145)
== END 2023-12-12 10:17 | disposition home or self-care (01) ==
LOC: HO.HMGCLDS 10:16
PROVIDERS: PCP Internal Medicine; Visit Provider Internal Medicine
DX: J44.9 Chronic obstructive pulmonary disease, unspecified (principal)
CPT/HCPCS: 36415; 80048

== ENCOUNTER 2024-01-31 14:04 | Outpatient (AMB) | payer MEDICARE, SELFPAY ==
--- NOTE | 2024-01-31 14:27 | A.OFFVIS_ITS ---
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: No Accompanied by: Self / Same As Patient Allergies gemifloxacin Allergy (Unknown, Verified 12/12/23 09:33) Rash montelukast [Singulair] Allergy (Unknown, Verified 12/12/23 09:33) mood swings Medication List - Last Reconciled 01/31/24 by Sunil Coto MD acetaminophen 650 mg PO Q6H PRN albuterol sulfate 90 mcg/actuation 2 puffs inhalation QID PRN albuterol sulfate 0.63 mg (3 mL) inhalation Q4-6H PRN amlodipine 2.5 mg PO DAILY apixaban (Eliquis) 5 mg PO BID azithromycin For 250 mg dose pack: take 500 mg today (day 1), then 250 mg for 4 days (days 2-5) PO calcium carbonate (Calcium 600) 600 mg PO BID cetirizine (Zyrtec) 10 mg PO DAILY ferrous sulfate 324 mg PO TUTHSA fluticasone propion-salmeterol 500-50 mcg/dose (Wixela Inhub) 1 inh inhalation BID fluticasone propionate 50 mcg/actuation 2 sprays intranasal BID fluticasone propionate 50 mcg/actuation 1 inh inhalation BID furosemide 20 mg PO BID ipratropium-albuterol 0.5 mg-3 mg(2.5 mg base)/3 mL 3 mL inhalation Q8H levothyroxine 25 mcg PO DAILY@0600 magnesium 400 mg PO BEDTIME multivitamin (Daily Multi-Vitamin tablet) 1 tab PO DAILY omeprazole 20 mg PO DAILY peg 400-propylene glycol (PF) 0.4-0.3 % (Systane (PF)) 1 drp ophthalmic (eye) BID potassium chloride ER 20 mEq PO DAILY pravastatin 20 mg PO BEDTIME silver sulfadiazine 1% 1 appl topical DAILY zoledronic teln-ogdpymck-mqemp 5 mg/100 mL (Reclast) 1 ea IV ONCE HPI Comments Details: Pleasant 78-year-old female who is here for follow-up. She was seen in the hospital which presented with influenza a, COPD exacerbation and congestive heart failure. She was diuresed and treated for heart failure and started on guideline directed medical therapy because her ejection fraction was severely reduced on echocardiogram. The pattern look like LAD ischemia versus takotsubo cardiomyopathy. After discussion she was referred to [facility] which she underwent cardiac catheterization by Dr. Givens because she belongs to [facility]. 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 She is here for follow-up after cardiac catheterization. She wishes to move her cardiovascular care to [facility]. She is denying any chest discomfort. She has chronic dyspnea due to underlying COPD and is oxygen dependent. Repeat echocardiography has shown resolution of LV dysfunction. In the interim she saw primary care physician and was noticed to have atrial fibrillation. After discussion she was started on apixaban. On follow-up today she is denying any palpitations. She has no chest pain. She has shortness of breath due to underlying lung disease. She is fatigued and tired. She underwent cardiac rehabilitation and feels that she has more energy and felt better. She has finished her sessions for cardiac rehabilitation. 05/15/23: She returns for follow-up. She was admitted at [facility] in February 2023. She was diagnosed with pneumonia and was treated with antibiotics and transition to oral doxycycline at discharge. She had echocardiography while she was inpatient which showed EF of 60 65%, moderate left atrial dilatation, severe mitral annular calcification, jrdq-fi-rkxdxnld mitral regurgitation, moderate tricuspid valve regurgitation and moderate pulmonary hypertension. She contracted COVID-19 a week ago. She is saying she was getting better but last night she started coughing more. She is saying that she has been using more oxygen than usual to. She had some chills. No fevers otherwise. Appetite so far is fine. She is saying that she is producing green phlegm. Pacemaker interrogation was done which was quite unremarkable. 01/31/2024: She returns for follow-up. She has been stable from cardiovascular point of view. She still has some shortness of breath when she has out in the heat due to lung disease. She continues to be on supplemental oxygen. Mild edema in the lower extremities where she has been taking amlodipine 2.5 mg daily. Blood pressure in the office is also low 80/60. She is not dizzy or lightheaded. [facility] Medical History (Updated 12/12/23 @ 10:32 by Freida Yarbrough MD) Osteoporosis Cardiac pacemaker in situ HTN (hypertension) PAF (paroxysmal atrial fibrillation) COPD (chronic obstructive pulmonary disease) CHF (congestive heart failure) Chronic anticoagulation Renal failure Rhabdomyolysis Pneumonia Hyponatremia Hyperlipemia SSS (sick sinus syndrome) Meniere disease Sleep apnea Surgical History History of permanent cardiac pacemaker placement History of endoscopy History of hysterectomy History of cardiac cath Family History Father Lung cancer Mother COPD (chronic obstructive pulmonary disease) Social History Household Members: Spouse Housing: House Do you presently have visiting nurse or other home services: Yes (VNA and OT) Alcohol intake: never Patient Tobacco Use Status: Former Tobacco user Years Smoked: 30 +/- e-Cigarette/Vaping Use: Never Used Second Hand Smoke Exposure: No Advance Directives Date on File: 02/06/23 service: No Current occupational status: retired Cognitive needs: No Hearing needs: Yes Vision needs: Yes Review of Systems Const Denies chills, Denies fatigue, Denies fever(s), Denies frequent falls, Denies weakness, Denies weight gain and Denies weight loss ENT Denies dizziness Card Denies chest pain, Denies leg edema, Denies lightheadedness, Denies palpita tions, Denies dyspnea and Denies dyspnea on exertion Resp Denies cough, Denies dyspnea and Denies dyspnea on exertion GI Denies hematochezia Musc Denies abnormal gait, Denies muscle weakness, Denies numbness, Denies radiating pain into limb and Denies tingling Neuro Denies abnormal gait, Denies dizziness, Denies frequent falls, Denies numbness, Denies tingling and Denies weakness Endo Denies fatigue and Denies palpitations Physical Exam Vital Signs: Last Vital Signs Pulse 60 01/31/24 14:28 BP 80/60 L 01/31/24 14:28 BMI result Body Mass Index 22.2 GENERAL APPEARANCE: in no acute distress, pleasant. NECK: no carotid bruit, no jugular venous distention. SKIN: no suspicious lesions, warm and dry. HEART: no murmurs, regular rate and rhythm. LUNGS: CTABL ABDOMEN: soft, nontender. EXTREMITIES: Mild edema. PERIPHERAL PULSES: equal. NEUROLOGIC: No gross deficits, AAO X 3 Office Procedures EKG Details: Atrial paced V sensed rhythm, right bundle-branch block, normal axis, prolonged VT interval 266 milliseconds, QTC 462 milliseconds. 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 She has atrial paced rhythm currently. Blood pressure is low and I have advised her to stop the amlodipine. This will also help her lower extremity edema. We will arrange echocardiography to reassess the EF. No changes in medications otherwise. Follow-up with us in 4 months. Thank you for allowing me to participate in the care of your patient. Please feel free to contact me if you have any questions. Orders: Orders CA echo transthoracic complete Today I48.0 - Paroxysmal atrial fibrillation Medications: Discontinued amlodipine Discontinued Reason: Doctor's Order 2.5 mg PO DAILY 90 tabs 3RF Coding Level of Care Code Est Pt Level 4 (11743) Diagnoses Cardiac pacemaker in situ Z95.0 HTN (hypertension) I10 PAF (paroxysmal atrial fibrillation) I48.0 CPT Codes EKG - CPT: 93782-[id number], Complete ([id number])
[2024-01-31 14:28] VITALS: BP 80/60; PULSE 60; BMI 22.2
== END 2024-01-31 15:04 | disposition home or self-care (01) ==
PROVIDERS: PCP Internal Medicine; Visit Provider Internal Medicine Cardiovascular Disease
DX: I10 Essential (primary) hypertension (principal); I48.0 Paroxysmal atrial fibrillation; Z95.0 Presence of cardiac pacemaker
CPT/HCPCS: 93010; 99214

== ENCOUNTER → 2024-01-31 14:04 | Outpatient (BNVA) | payer MEDICARE, SELFPAY | PROVIDERS: PCP Internal Medicine; Visit Provider Internal Medicine Cardiovascular Disease | DX: I10 Essential (primary) hypertension (principal); I48.0 Paroxysmal atrial fibrillation; Z79.01 Long term (current) use of anticoagulants; Z95.0 Presence of cardiac pacemaker | CPT/HCPCS: 93005; 99212 ==

== ENCOUNTER → 2024-02-20 10:04 | Outpatient (REF) | payer MEDICARE, SELFPAY ==
--- NOTE | 2024-02-20 10:08 | CA_ITS ---
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 There is mildly increased left ventricular wall thickness. The visually estimated ejection fraction is between 65-70%. There is no evidence of regional wall motion abnormalities. Diastolic function is indeterminate on the basis of available data. - Normal right ventricular cavity size. There is mildly decreased right ventricular systolic function. There is a pacemaker wire seen in the right ventricle. - There is moderate mitral valve regurgitation. - Mild pulmonary hypertension is present. Findings Left Ventricle Normal left ventricular size and systolic function. There is mildly increased left ventricular wall thickness. The visually estimated ejection fraction is between 65-70%. There is no evidence of regional wall motion abnormalities. Diastolic function is indeterminate on the basis of available data. Right Ventricle Normal right ventricular cavity size. There is mildly decreased right ventricular systolic function. There is a pacemaker wire seen in the right ventricle. Atria The left atrium is severely dilated. The right atrium is likely dilated. Aortic Valve There is a normal trileaflet aortic valve. There is mild calcification of the aortic valve. There is no aortic valve stenosis. There is trace (trivial) aortic valve regurgitation. Mitral Valve There is severe mitral annular calcification. There is moderate mitral valve regurgitation. The mitral regurgitation jet is directed anteriorly. There is no mitral valve stenosis. Pulmonic Valve Normal pulmonic valve structure and function. There is trace pulmonic valve regurgitation. Tricuspid Valve Normal tricuspid valve structure. There is mild tricuspid valve regurgitation. Normal right atrial pressure. Mild pulmonary hypertension is present. Great Vessels All visible segments of the aorta are normal in size. The visualized portions of the pulmonary artery and branches are normal. Venous The inferior vena cava is normal in size and collapses greater than 50% with inspiration. Pericardium/Pleural There is no evidence of pericardial effusion. Prior Study Comparison Changes noted compared to prior study dated: 03/17/2023. Moderate MR, Mildly decreased RV function. Measurements 2D Linear Measurements IVSd: 1.01 0.6-0.9/0.6-1.0 cm LVIDd: 4.88 3.9-5.3/4.2-5.9 cm LVIDd Index: 3.34 2.4-3.2/2.2-3.1 cm/m2 LVIDs: 2.41 2.0-3.6 cm LVPWd: 1.02 0.7-1.1 cm LA Diam: 4.60 2.7-3.8/3.0-4.0 cm LAIDs Index: 3.15 1.5-2.3 cm/m2 LV Mass: 222.27 67-162/88-224 g LV Mass Index: 152.24 43-95/49-115 g/m2 LVOT Diam: 1.80 3.0+(-)1.3 cm 2D Systolic Function EF 4C: 63.80 >55% EF 2C: 62.80 >55% EF BiP: 63.00 >55% Mitral Valve MV VTI: 0.31 MV Pk Shamar: 1.42 MV Mn Shamar: 0.64 MV Pk Grad: 8.00 MV Mn Grad: 2.00 MV Pk E: 1.52 MV Decel Time: 211.00 E'Lateral: 9.26 E'Medial: 4.89 E/E' Med: 31.10 E/E' Lat: 16.40 PHT: 62.00 MVA PHT: 3.55 MVA Continuity: 1.49 Decel [place]: 7.23 Aortic Valve AoV Pk Shamar: 1.42 AoV Mn Shamar: 0.87 AoV VTI: 0.26 AoV Pk Grad: 8.00 Aov Mn Grad: 4.00 IVANNA Cont.VTI: 1.77 LVOT LVOT Pk Shamar: 1.00 LVOT Mn Shamar: 0.65 LVOT VTI: 0.18 LVOT Pk Grad: 4.00 LVOT Mn Grad: 2.00 LVOT Diam: 1.80 LVOT Area: 2.54 Diastolic Function MV Pk E: 1.52 E'Medial: 4.89 E/E' Med: 31.10 E' Laterial: 9.26 E/E' Lat: 16.40 Right Ventricle TAPSE (mm): 16.70 TVS' Shamar: 8.16 Tricuspid Valve TR Pk Shamar: 3.22 TR Pk Grad: 41.00 RA Press: 3.00 RVSP: 44.00 Great Vessels Aorta Sinus of Valsalva: 3.00 2.0-3.5 cm Ao Asc: 3.40 2.1-3.4 cm Updated in Other Vendor System with Status of Final Sunil Coto MD electronically signed on 02/20/2024 2:13:01 PM with status of Final
[2024-02-20 11:13] LABS: MANUAL DIFF FLAG NO
[2024-02-20 12:33] LABS: Basophils Percent Auto 0.6 % (0-2); Eosinophils Absolute Auto 0.1 X10*3/uL (0.0-0.4); Eosinophils Percent Auto 1.3 % (0-4); Hematocrit 41.8 % (37.0-47.0); Hemoglobin 13.9 g/dl (12.0-16.0); Imm Gran Abs Auto 0.02 X10*3/uL (0.00-0.03); Imm Gran Pct Auto 0.3 % (0.0-0.4); Lymphocytes Absolute Auto 1.1 X10*3/uL (1.2-4.9); Lymphocytes Percent Auto 16.4 % (20-40); Mean Corpuscular HGB Conc 33.3 g/dl (31.0-35.0); Mean Corpuscular Hemoglobin 33.3 pg (27.0-33.0); Mean Platelet Volume 10.2 fL (9.4-12.3); Monocytes Absolute Auto 0.4 X10*3/uL (0.1-1.2); Monocytes Percent Auto 6.4 % (2-11); Neutrophils Absolute Auto 5.2 x10*3/uL (2.0-8.3); Platelet Count 247 X10*3/uL (160-400); Red Blood Count 4.18 X10*6/uL (4.20-5.50); Red Cell Distribution Width 12.9 % (11.0-16.0); White Blood Count 6.9 X10*3/uL (4.8-10.8)
[2024-02-20 13:06] LABS: Alanine Aminotransferase 15 U/L (0-31); Albumin Level 4.4 g/dL (3.5-5.0); Alkaline Phosphatase 51 U/L (39-117); Anion Gap 13 (12-20); Aspartate Amino Transferase 27 U/L (5-31); Bilirubin Total 0.7 mg/dL (0.0-1.0); Blood Urea Nitrogen 12 mg/dL (9-16); Calcium 9.8 mg/dL (8.4-10.2); Carbon Dioxide 26 mmol/L (22-29); Chloride 106 mmol/L (96-108); Estimated Glomerular Filt Rate > 60; Glucose Fasting 91 mg/dL (60-99); Sodium 141 mmol/L (135-145); Total Protein 7.5 g/dL (6.5-8.0)
[2024-02-20 13:25] LABS: TSH reflex Free T4 1.87 uIU/mL (0.32-4.0)
== END ==
LOC: HO.CARD 10:04
PROVIDERS: PCP Internal Medicine; Visit Provider Internal Medicine Cardiovascular Disease
DX: I48.0 Paroxysmal atrial fibrillation (principal); I11.0 Hypertensive heart disease with heart failure; I50.9 Heart failure, unspecified
CPT/HCPCS: 36415; 80053; 84443; 85025; 93306

== ENCOUNTER → 2024-02-20 10:08 | Outpatient (BNV) | payer MEDICARE, SELFPAY | PROVIDERS: PCP Internal Medicine; Visit Provider Internal Medicine Cardiovascular Disease | DX: I34.0 Nonrheumatic mitral (valve) insufficiency (principal); I34.81 Nonrheumatic mitral (valve) annulus calcification; I36.1 Nonrheumatic tricuspid (valve) insufficiency | CPT/HCPCS: 93306 ==

== ENCOUNTER 2024-02-22 10:12 | Outpatient (AMB) | payer MEDICARE, SELFPAY ==
[2024-02-22 10:15] VITALS: BP 124/60; PULSE 60; O2SAT 90; BMI 22.3
--- NOTE | 2024-02-22 10:15 | MHC.PC.OV ---
Vital Signs 02/22/24 10:15 Height 5 ft Weight 114 lb BMI 22.3 BP 124/60 Blood Pressure Location Rt brachial Position Sitting Pulse 60 Pulse Source Pulse Oximeter Pulse Oximetry (%) 90 L Oxygen Delivery Method Nasal Cannula Intake Visit Reasons: 2 month follow Intake Note: Pt is here today for 2 months follow up visit. Allergies gemifloxacin Allergy (Unknown, Verified 02/22/24 10:17) Rash montelukast [Singulair] Allergy (Unknown, Verified 02/22/24 10:17) mood swings Medication List - Last Reconciled 02/22/24 by Freida Yarbrough MD acetaminophen 650 mg PO Q6H PRN albuterol sulfate 90 mcg/actuation 2 puffs inhalation QID PRN albuterol sulfate 0.63 mg (3 mL) inhalation Q4-6H PRN apixaban (Eliquis) 5 mg PO BID azithromycin Monday and Monday calcium carbonate (Calcium 600) 600 mg PO BID cetirizine (Zyrtec) 10 mg PO DAILY ferrous sulfate 324 mg PO TUTHSA fluticasone propion-salmeterol 500-50 mcg/dose (Wixela Inhub) 1 inh inhalation BID fluticasone propionate 50 mcg/actuation (Flonase Allergy Relief) 1 spray intranasal DAILY fluticasone propionate 50 mcg/actuation 2 sprays intranasal BID furosemide 20 mg PO BID ipratropium-albuterol 0.5 mg-3 mg(2.5 mg base)/3 mL 3 mL inhalation Q8H levothyroxine 25 mcg PO DAILY@0600 magnesium 400 mg PO BEDTIME multivitamin (Daily Multi-Vitamin tablet) 1 tab PO DAILY omeprazole 20 mg PO DAILY peg 400-propylene glycol (PF) 0.4-0.3 % (Systane (PF)) 1 drp ophthalmic (eye) BID potassium chloride ER 20 mEq PO DAILY pravastatin 20 mg PO BEDTIME silver sulfadiazine 1% 1 appl topical DAILY zoledronic dmgs-lslreoat-qfnbp 5 mg/100 mL (Reclast) 1 ea IV ONCE Tobacco use date assessed: 02/22/24 Dental Screening Dental Screen Date: 07/25/23 HPI 2 month follow HPI Details Patient presents for the follow-up of O2 dependent COPD, right-sided heart failure hypothyroidism hyperlipidemia paroxysmal AFib. Patient reports persistent nasal and sinus congestion and productive cough with clear sputum. 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 [facility] Medical History (Updated 02/22/24 @ 11:12 by Freida Yarbrough MD) Osteoporosis Cardiac pacemaker in situ HTN (hypertension) PAF (paroxysmal atrial fibrillation) COPD (chronic obstructive pulmonary disease) CHF (congestive heart failure) Chronic anticoagulation Renal failure Rhabdomyolysis Pneumonia Hyponatremia Hyperlipemia SSS (sick sinus syndrome) Meniere disease Sleep apnea Surgical History History of permanent cardiac pacemaker placement History of endoscopy History of hysterectomy History of cardiac cath Family History Father Lung cancer Mother COPD (chronic obstructive pulmonary disease) Social History Household Members: Spouse Housing: House Do you presently have visiting nurse or other home services: Yes (VNA and OT) Alcohol intake: never Patient Tobacco Use Status: Former Tobacco user Years Smoked: 30 +/- e-Cigarette/Vaping Use: Never Used Second Hand Smoke Exposure: No Advance Directives Date on File: 02/06/23 service: No Current occupational status: retired Cognitive needs: No Hearing needs: Yes Vision needs: Yes Questionnaire Thrive Questionnaire Date Thrive assessed: 07/25/23 YUDELKA-7 AMB Questionnaire YUDELKA-7 Date YUDELKA - 7 assessed: 07/25/23 Source: Developed by Drs. Jerry Munoz, Karishma Melgar, Joqauin Ariza and colleagues, with an educational gaby from [employer]. Review of Systems Const All systems reviewed & are unremarkable except as noted in HPI and below Eyes Reports no additional complaints Card Reports no additional complaints Resp Reports no additional complaints GI Reports no additional complaints Reports no additional complaints Physical exam (Primary Care) Vital Signs: Last Vital Signs Pulse 60 02/22/24 10:15 BP 124/60 02/22/24 10:15 Pulse Ox 90 L 02/22/24 10:15 Oxygen Delivery Method Nasal Cannula 02/22/24 10:15 BMI result Body Mass Index 22.3 Tobacco/Smoking Status: Tobacco use Status Tobacco use date assessed 02/22/24 02/22/24 10:23 Patient Tobacco Use Status Former Tobacco user 02/22/24 10:23 e-Cigarette/Vaping Use Never Used 02/22/24 10:23 Thrive Assessment: Date of Thrive Assessment Date Thrive assessed 07/25/23 02/22/24 10:23 Const General: no acute distress HENMT Head: Yes normal to inspection General nose exam: Normal external nose present Neck Neck: Yes supple Resp Effort & Inspection: normal respiratory effort Auscultation: no wheezes and diminished lung sounds Cardio Rhythm: regular rhythm Heart sounds: S1 normal heart sound present and S2 normal heart sound present GI Inspection: Yes normal to inspection Palpation (GI): Soft to palpation Percussion: Yes normal to percussion Assessment and Plan Assessment & Plan (1) CHF (congestive heart failure): Comment: echo 08/2019 PVC nl EF, pulmonary hypertension, repeat Echo 07/14 EF 25%, global hypokinesis, negative cardiac cath 07/14, 03/15 LVEF 50% [facility] mod Pul HTN, used to take ACEI 02/12 dc d by pul?, Echo 01/2024 nl LVSF, mod MR, mild pul HTN Code(s): I50.9 - Heart failure, unspecified Plan: Continue current medications follow-up with Cardiology (2) HTN (hypertension): Comment: off Amlodipine 01/2024, d/cd by cardiology Code(s): I10 - Essential (primary) hypertension Plan: Blood pressure will be monitored (3) PAF (paroxysmal atrial fibrillation): Comment: 10/13 Holter frequent APCs, s/p pacemaker for SSS, on Eliquis Code(s): I48.0 - Paroxysmal atrial fibrillation Plan: Continue Eliquis (4) COPD (chronic obstructive pulmonary disease): Comment: O2 dependent, Dr. Rhoades, started on Azithromycin by pul 01/2024 Code(s): J44.9 - Chronic obstructive pulmonary disease, unspecified Plan: Continue current treatment and follow-up with pulmonology Medications: New fluticasone propionate 50 mcg/actuation (Flonase Allergy Relief) administer into each nostril 1 spray intranasal DAILY 16 grams 3RF Changed From azithromycin For 250 mg dose pack: take 500 mg today (day 1), then 250 mg for 4 days (days 2-5) PO 6 tabs 0RF To azithromycin Monday and Monday Refilled cetirizine (Zyrtec) 10 mg PO DAILY 90 tabs 3RF fluticasone propionate 50 mcg/actuation administer into each nostril 2 sprays intranasal BID 16 grams 5RF Coding Level of Care Code Est Pt Level 4 (81620) Diagnoses CHF (congestive heart failure) I50.9 HTN (hypertension) I10 PAF (paroxysmal atrial fibrillation) I48.0 COPD (chronic obstructive pulmonary disease) J44.9
== END 2024-02-22 11:11 | disposition home or self-care (01) ==
PROVIDERS: PCP Internal Medicine; Visit Provider Internal Medicine
DX: I11.0 Hypertensive heart disease with heart failure (principal); I50.9 Heart failure, unspecified; I48.0 Paroxysmal atrial fibrillation; J44.9 Chronic obstructive pulmonary disease, unspecified
CPT/HCPCS: 99214

== ENCOUNTER → 2024-02-25 23:59 | Outpatient (BNV) | payer MEDICARE, SELFPAY ==
--- NOTE | 2024-02-28 21:06 | A.OFFVIS_ITS ---
Intake Visit Reasons: Remote device check- [facility] Allergies gemifloxacin Allergy (Unknown, Verified 02/22/24 10:17) Rash montelukast [Singulair] Allergy (Unknown, Verified 02/22/24 10:17) mood swings [facility] Medical History (Updated 02/22/24 @ 11:12 by Freida Yarbrough MD) Osteoporosis Cardiac pacemaker in situ HTN (hypertension) PAF (paroxysmal atrial fibrillation) COPD (chronic obstructive pulmonary disease) CHF (congestive heart failure) Chronic anticoagulation Renal failure Rhabdomyolysis Pneumonia Hyponatremia Hyperlipemia SSS (sick sinus syndrome) Meniere disease Sleep apnea Surgical History History of permanent cardiac pacemaker placement History of endoscopy History of hysterectomy History of cardiac cath Family History Father Lung cancer Mother COPD (chronic obstructive pulmonary disease) Social History Household Members: Spouse Housing: House Do you presently have visiting nurse or other home services: Yes (VNA and OT) Alcohol intake: never Patient Tobacco Use Status: Former Tobacco user Years Smoked: 30 +/- e-Cigarette/Vaping Use: Never Used Second Hand Smoke Exposure: No Advance Directives Date on File: 02/06/23 service: No Current occupational status: retired Cognitive needs: No Hearing needs: Yes Vision needs: Yes Office Procedures Cardiac Device Check Cardiac Device Check Details: PPM Good battery life No new alerts. EMERGENCY ROOM REGISTERED NURSE 41% 13664-CA Cardiac Device Check, pacemaker dual lead Procedure code (CPT) selection complete Assessment & Plan Assessment & Plan (1) Cardiac pacemaker in situ: Code(s): Z95.0 - Presence of cardiac pacemaker Category: Medical Plan Orders: Orders AMB Cardiac Device Follow-up 02/25/24 I48.0 - Paroxysmal atrial fibrillation Coding Level of Care Code Procedure Only Diagnoses Cardiac pacemaker in situ Z95.0 CPT Codes Cardiac Device Check - Cardiac Device 2: 79479-JW Cardiac Device Check, pacemaker dual lead ([id number])
== END ==
PROVIDERS: PCP Internal Medicine; Visit Provider Internal Medicine Cardiovascular Disease
DX: Z45.018 Encounter for adjustment and management of other part of cardiac pacemaker (principal)
CPT/HCPCS: 93294

== ENCOUNTER 2024-04-17 11:04 | Outpatient (AMB) | payer MEDICARE, SELFPAY ==
[2024-04-17 11:49] VITALS: BP 138/76; PULSE 72; O2SAT 93; BMI 22.3
--- NOTE | 2024-04-17 11:49 | A.OFFPC_ITS ---
Vital Signs 04/17/24 11:49 Height 5 ft Weight 114 lb BMI 22.3 BP 138/76 Blood Pressure Location Rt brachial Position Sitting Pulse 72 Pulse Source Pulse Oximeter Pulse Oximetry (%) 93 Oxygen Delivery Method Room Air Intake Visit Reasons: Cough Intake Note: pt is here for a cough Allergies gemifloxacin Allergy (Unknown, Verified 04/17/24 11:50) Rash montelukast [Singulair] Allergy (Unknown, Verified 04/17/24 11:50) mood swings Medication List - Last Reconciled 04/17/24 by Freida Yarbrough MD acetaminophen 650 mg PO Q6H PRN albuterol sulfate 90 mcg/actuation 2 puffs inhalation QID PRN albuterol sulfate 0.63 mg (3 mL) inhalation Q4-6H PRN apixaban (Eliquis) 5 mg PO BID azithromycin Monday and Monday calcium carbonate (Calcium 600) 600 mg PO BID cetirizine (Zyrtec) 10 mg PO DAILY ferrous sulfate 324 mg PO TUTHSA fluticasone propion-salmeterol 500-50 mcg/dose (Wixela Inhub) 1 inh inhalation BID fluticasone propionate 50 mcg/actuation (Flonase Allergy Relief) 1 spray intranasal DAILY fluticasone propionate 50 mcg/actuation 2 sprays intranasal BID furosemide 20 mg PO BID ipratropium-albuterol 0.5 mg-3 mg(2.5 mg base)/3 mL 3 mL inhalation Q8H levothyroxine 25 mcg PO DAILY@0600 magnesium 400 mg PO BEDTIME multivitamin (Daily Multi-Vitamin tablet) 1 tab PO DAILY omeprazole 20 mg PO DAILY peg 400-propylene glycol (PF) 0.4-0.3 % (Systane (PF)) 1 drp ophthalmic (eye) BID potassium chloride ER 20 mEq PO DAILY pravastatin 20 mg PO BEDTIME silver sulfadiazine 1% 1 appl topical DAILY zoledronic vcjx-ngrwvowk-rccxd 5 mg/100 mL (Reclast) 1 ea IV ONCE Tobacco use date assessed: 02/22/24 Fall risk assessment: No Falls in past year Last assessed Fall Risk: 04/17/24 Dental Screening Dental Screen Date: 07/25/23 HPI Cough HPI Details Pt c/o 1 week of productive cough, increasing shortness of breath wheezing. She denies fever chills pleurisy PND or orthopnea [facility] Medical History (Updated 04/17/24 @ 12:23 by Freida Yarbrough MD) Osteoporosis Cardiac pacemaker in situ HTN (hypertension) PAF (paroxysmal atrial fibrillation) COPD (chronic obstructive pulmonary disease) CHF (congestive heart failure) Chronic anticoagulation Renal failure Rhabdomyolysis Pneumonia Hyponatremia Hyperlipemia SSS (sick sinus syndrome) Meniere disease Sleep apnea Surgical History History of permanent cardiac pacemaker placement History of endoscopy History of hysterectomy History of cardiac cath Family History Father Lung cancer Mother COPD (chronic obstructive pulmonary disease) Social History Household Members: Spouse Housing: House Do you presently have visiting nurse or other home services: Yes (VNA and OT) Alcohol intake: never Patient Tobacco Use Status: Former Tobacco user Years Smoked: 30 +/- e-Cigarette/Vaping Use: Never Used Second Hand Smoke Exposure: No Advance Directives Date on File: 02/06/23 service: No Current occupational status: retired Cognitive needs: No Hearing needs: Yes Vision needs: Yes Questionnaire PHQ-9 Over the last 2 weeks, how often have you been bothered by any of the following problems? 1. Little interest or pleasure in doing things: not at all 2. Feeling down, depressed, or hopeless: not at all 3. Trouble falling or staying asleep, or sleeping too much: not at all 4. Feeling tired or having little energy: not at all 5. Poor appetite or overeating: not at all 6. Feeling bad about yourself - or that you are a failure or have let yourself or your family down: not at all 7. Trouble concentrating on things, such as reading the newspaper or watching television: not at all 8. Moving or speaking so slowly that other people could have noticed. Or the opposite - being so fidgety or restless that you have been moving around a lot more than usual: not at all 9. Thoughts that you would be better off or of hurting yourself in some way: not at all Total score: 0 Source: Developed by Drs. Jerry Munoz, Karishma Melgar, Joaquin Ariza and colleagues, with an educational gaby from [employer]. Thrive Questionnaire Date Thrive assessed: 07/25/23 I am a: Patient What is your living situation today?: I have a steady place to live Within the past 12 months, did the food you bought not last and you didn't have the money to get more?: Never true Within the past 12 months, did you worry whether your food would run out before you got money to buy more?: Never true Do you have trouble paying for medicines?: No Do you have trouble getting transportation to medical appointments?: No Do you have trouble paying your heating and electricity bill?: No Do you have trouble taking care of your child, family member or friend?: No Do you have trouble with day-to-day activities such as bathing, preparing meals, shopping, managing finances, etc.?: No Are you interested in more education?: No Please select the resources that you would like help with: None Currently or been in a relationship where the following occur: No concerns reported THRIVE Score: 0 AUDIT C Alcohol Use Questionnaire (AUDIT-C) 1. How often do you have a drink containing alcohol?: Never Total Score: 0 YUDELKA-7 AMB Questionnaire YUDELKA-7 Date YUDELKA - 7 assessed: 07/25/23 Feeling nervous, anxious, or on edge: 0 = Not at all Not being able to stop or control worryin = Not at all Worrying too much about different things: 0 = Not at all Trouble relaxin = Not at all Being so restless that it is hard to sit still: 0 = Not at all Becoming easily annoyed or irritable: 0 = Not at all Feeling afraid as if something awful might happen: 0 = Not at all Total YUDELKA-7 score (0-4 normal; 5-9 mild; 10-14 moderate; 15-21 severe): 0 Source: Developed by Drs. Jerry Munoz, Joaquin Langston and colleagues, with an educational gaby from [employer]. Review of Systems Const All systems reviewed & are unremarkable except as noted in HPI and below ENT Reports no additional complaints Resp Reports no additional complaints GI Reports no additional complaints Reports no additional complaints Physical exam (Primary Care) Vital Signs: Last Vital Signs Pulse 72 04/17/24 11:49 BP 138/76 04/17/24 11:49 Pulse Ox 93 04/17/24 11:49 Oxygen Delivery Method Room Air 04/17/24 11:49 BMI result Body Mass Index 22.3 Tobacco/Smoking Status: Tobacco use Status Tobacco use date assessed 02/22/24 04/17/24 11:50 Patient Tobacco Use Status Former Tobacco user 04/17/24 11:50 e-Cigarette/Vaping Use Never Used 04/17/24 11:50 PHQ-9: PHQ-9 Score PHQ-9: Total score 0 04/17/24 11:50 Thrive Assessment: Date of Thrive Assessment Date Thrive assessed 07/25/23 04/17/24 11:50 Currently or been in a relationship where the following occur: No concerns reported Const General: no acute distress HENMT Head: Yes normal to inspection Ears: TM's normal bilaterally Throat: Yes posterior oropharynx normal and Yes postnasal drainage Neck Neck: Yes supple Resp Effort & Inspection: able to speak in complete sentences and Actively coughing Auscultation: wheezes and diminished lung sounds Cardio Rhythm: regular rhythm Heart sounds: S1 normal heart sound present and S2 normal heart sound present GI Inspection: Yes normal to inspection Assessment and Plan Assessment & Plan (1) Dysuria: Code(s): R30.0 - Dysuria Plan: Check UA and culture (2) COPD (chronic obstructive pulmonary disease): Comment: O2 dependent, Dr. Rhoades, started on Azithromycin QOD by pul 01/2024 Code(s): J44.9 - Chronic obstructive pulmonary disease, unspecified Plan: DOXYCYCLINE AND PREDNISONE taper as prescribed patient will continue inhaler and supplemental O2, supportive care discussed with the patient (3) CHF (congestive heart failure): Comment: echo 08/2019 PVC nl EF, pulmonary hypertension, repeat Echo 07/14 EF 25%, global hypokinesis, negative cardiac cath 07/14, 03/15 LVEF 50% C mod Pul HTN, used to take ACEI 02/12 dc d by pul?, Echo 01/2024 nl LVSF, mod MR, mild pul HTN Code(s): I50.9 - Heart failure, unspecified Plan: Continue current medications follow-up with Cardiology Orders: Orders Urine Culture Today R30.0 - Dysuria UA w Microscopic Today R30.0 - Dysuria Medications: New doxycycline hyclate 100 mg PO BID 20 tabs 0RF prednisone orally daily; Four tablets p.o. q.d. for 3 days then 3 tablets p.o. q.d. for 3 days then 2 tablets p.o. q.d. for 3 days then 1 tablet p.o. q.d. for 3 days 30 tabs 0RF Coding Level of Care Code Est Pt Level 4 (67870) Diagnoses Dysuria R30.0 COPD (chronic obstructive pulmonary disease) J44.9 CHF (congestive heart failure) I50.9
== END 2024-04-17 12:24 | disposition home or self-care (01) ==
PROVIDERS: PCP Internal Medicine; Visit Provider Internal Medicine
DX: R30.0 Dysuria (principal); J44.9 Chronic obstructive pulmonary disease, unspecified; I50.9 Heart failure, unspecified

== ENCOUNTER → 2024-04-17 11:04 | Outpatient (BNVA) | payer MEDICARE, SELFPAY | PROVIDERS: PCP Internal Medicine; Visit Provider Internal Medicine | DX: R05.9 Cough, unspecified (principal); R30.0 Dysuria; J44.9 Chronic obstructive pulmonary disease, unspecified; I50.9 Heart failure, unspecified | CPT/HCPCS: 99212 ==

== ENCOUNTER 2024-05-06 12:35 | Outpatient (AMB) | payer MEDICARE, SELFPAY ==
[2024-05-06 12:47] VITALS: BP 118/68; PULSE 60; O2SAT 91; BMI 22.7
--- NOTE | 2024-05-06 12:47 | A.OFFPC_ITS ---
Vital Signs 05/06/24 12:47 Height 5 ft Weight 116 lb BMI 22.7 BP 118/68 Blood Pressure Location Rt brachial Position Sitting Pulse 60 Pulse Source Pulse Oximeter Pulse Oximetry (%) 91 L Oxygen Delivery Method Nasal Cannula Intake Visit Reasons: Meds follow up Intake Note: Pt is here today for a follow up visit. Allergies gemifloxacin Allergy (Unknown, Verified 05/06/24 12:58) Rash montelukast [Singulair] Allergy (Unknown, Verified 05/06/24 12:58) mood swings Medication List - Last Reconciled 05/06/24 by Freida Yarbrough MD acetaminophen 650 mg PO Q6H PRN albuterol sulfate 90 mcg/actuation 2 puffs inhalation QID PRN albuterol sulfate 0.63 mg (3 mL) inhalation Q4-6H PRN apixaban (Eliquis) 5 mg PO BID azithromycin Monday and Monday calcium carbonate (Calcium 600) 600 mg PO BID cetirizine (Zyrtec) 10 mg PO DAILY ferrous sulfate 324 mg PO TUTHSA fluticasone propion-salmeterol 500-50 mcg/dose (Wixela Inhub) 1 inh inhalation BID fluticasone propionate 50 mcg/actuation (Flonase Allergy Relief) 1 spray intranasal DAILY fluticasone propionate 50 mcg/actuation 2 sprays intranasal BID furosemide 20 mg PO BID ipratropium-albuterol 0.5 mg-3 mg(2.5 mg base)/3 mL 3 mL inhalation Q8H levothyroxine 25 mcg PO DAILY@0600 magnesium 400 mg PO BEDTIME multivitamin (Daily Multi-Vitamin tablet) 1 tab PO DAILY omeprazole 20 mg PO DAILY peg 400-propylene glycol (PF) 0.4-0.3 % (Systane (PF)) 1 drp ophthalmic (eye) BID potassium chloride ER 20 mEq PO DAILY pravastatin 20 mg PO BEDTIME silver sulfadiazine 1% 1 appl topical DAILY zoledronic [id number]-wsgdkrhm-[id number] 5 mg/100 mL (Reclast) 1 ea IV ONCE Tobacco use date assessed: 02/22/24 Dental Screening Dental Screen Date: 07/25/23 HPI Meds follow up HPI Details Patient presents for the follow-up of COPD exacerbation. She completed course of prednisone and doxycycline and is feeling better cough and wheezing improved but patient still feels congested and has dyspnea with minimal exertion. She denies fever chills. Patient has been using supplemental O2 and taking inhalers. [facility] Medical History Osteoporosis Cardiac pacemaker in situ HTN (hypertension) PAF (paroxysmal atrial fibrillation) COPD (chronic obstructive pulmonary disease) CHF (congestive heart failure) Chronic anticoagulation Renal failure Rhabdomyolysis Pneumonia Hyponatremia Hyperlipemia SSS (sick sinus syndrome) Meniere disease Sleep apnea Surgical History History of permanent cardiac pacemaker placement History of endoscopy History of hysterectomy History of cardiac cath Family History Father Lung cancer Mother COPD (chronic obstructive pulmonary disease) Social History Household Members: Spouse Housing: House Do you presently have visiting nurse or other home services: Yes (VNA and OT) Alcohol intake: never Patient Tobacco Use Status: Former Tobacco user Years Smoked: 30 +/- e-Cigarette/Vaping Use: Never Used Second Hand Smoke Exposure: No Advance Directives Date on File: 02/06/23 service: No Current occupational status: retired Cognitive needs: No Hearing needs: Yes Vision needs: Yes Questionnaire Thrive Questionnaire Date Thrive assessed: 04/17/24 I am a: Patient What is your living situation today?: I have a steady place to live Within the past 12 months, did the food you bought not last and you didn't have the money to get more?: Never true Within the past 12 months, did you worry whether your food would run out before you got money to buy more?: Never true Do you have trouble paying for medicines?: No Do you have trouble getting transportation to medical appointments?: No Do you have trouble paying your heating and electricity bill?: No Do you have trouble taking care of your child, family member or friend?: No Do you have trouble with day-to-day activities such as bathing, preparing meals, shopping, managing finances, etc.?: No Are you interested in more education?: No Please select the resources that you would like help with: None Currently or been in a relationship where the following occur: No concerns reported THRIVE Score: 0 YUDELKA-7 AMB Questionnaire YUDELKA-7 Date YUDELKA - 7 assessed: 07/25/23 Source: Developed by Drs. Jerry Munoz, Karishma Melgar, Joaquin Ariza and colleagues, with an educational gaby from [employer]. Review of Systems Const All systems reviewed & are unremarkable except as noted in HPI and below Eyes Reports no additional complaints ENT Reports no additional complaints Card Reports no additional complaints Resp Reports no additional complaints GI Reports no additional complaints Reports no additional complaints Physical exam (Primary Care) Vital Signs: Last Vital Signs Pulse 60 05/06/24 12:47 BP 118/68 05/06/24 12:47 Pulse Ox 91 L 05/06/24 12:47 Oxygen Delivery Method Nasal Cannula 05/06/24 12:47 BMI result Body Mass Index 22.7 Tobacco/Smoking Status: Tobacco use Status Tobacco use date assessed 02/22/24 05/06/24 12:47 Patient Tobacco Use Status Former Tobacco user 05/06/24 12:47 e-Cigarette/Vaping Use Never Used 05/06/24 12:47 Thrive Assessment: Date of Thrive Assessment Date Thrive assessed 04/17/24 05/06/24 12:47 Currently or been in a relationship where the following occur: No concerns reported HENMT Head: Yes normal to inspection Neck Neck: Yes supple Resp Effort & Inspection: able to speak in complete sentences Auscultation: rales bilateral and diminished lung sounds Cardio Rhythm: regular rhythm Heart sounds: S1 normal heart sound present and S2 normal heart sound present GI Inspection: Yes normal to inspection Palpation (GI): Soft to palpation Coding Level of Care Code Est Pt Level 4 (08000) Diagnoses (HFpEF) heart failure with preserved ejection fraction I50.30 PAF (paroxysmal atrial fibrillation) I48.0 COPD (chronic obstructive pulmonary disease) J44.9 Assessment & Plan Assessment & Plan (1) (HFpEF) heart failure with preserved ejection fraction: Comment: Echo 01/2024 increase left ventricle wall thickness, ejection fraction 65%, moderate MR, mild pulmonary hypertension Code(s): I50.30 - Unspecified diastolic (congestive) heart failure Category: Medical Plan: Increase furosemide to 40 mg a day for 1 week, followed by alternating 40 and 20 mg every other day, start Farxiga 10 mg a day, follow-up in 2 weeks (2) PAF (paroxysmal atrial fibrillation): Comment: 10/13 Holter frequent APCs, s/p pacemaker for SSS, on Eliquis Code(s): I48.0 - Paroxysmal atrial fibrillation Category: Medical Plan: In normal sinus rhythm, on Eliquis (3) COPD (chronic obstructive pulmonary disease): Comment: O2 dependent, Dr. Rhoades, started on Azithromycin QOD by pul 01/2024 Code(s): J44.9 - Chronic obstructive pulmonary disease, unspecified Category: Medical Plan: Continue current inhalers and supplemental O2 Medications: New Farxiga (dapagliflozin propanediol) 5 mg PO DAILY 30 tabs 2RF NS Refilled omeprazole 20 mg PO DAILY 90 caps 3RF
== END 2024-05-06 13:51 | disposition home or self-care (01) ==
PROVIDERS: PCP Internal Medicine; Visit Provider Internal Medicine
DX: I50.30 Unspecified diastolic (congestive) heart failure (principal); I48.0 Paroxysmal atrial fibrillation; J44.9 Chronic obstructive pulmonary disease, unspecified

== ENCOUNTER → 2024-05-06 12:35 | Outpatient (BNVA) | payer MEDICARE, SELFPAY | PROVIDERS: PCP Internal Medicine; Visit Provider Internal Medicine | DX: I50.30 Unspecified diastolic (congestive) heart failure (principal); I48.0 Paroxysmal atrial fibrillation; J44.9 Chronic obstructive pulmonary disease, unspecified | CPT/HCPCS: 99212 ==

== ENCOUNTER → 2024-05-26 23:59 | Outpatient (BNV) | payer MEDICARE, SELFPAY ==
--- NOTE | 2024-06-12 14:06 | MHC.OFFVIS ---
Intake Visit Reasons: Remote device check- [facility] Allergies gemifloxacin Allergy (Unknown, Verified 05/29/24 08:43) Rash montelukast [Singulair] Allergy (Unknown, Verified 05/29/24 08:43) mood swings PFSH Medical History Osteoporosis Cardiac pacemaker in situ HTN (hypertension) PAF (paroxysmal atrial fibrillation) COPD (chronic obstructive pulmonary disease) CHF (congestive heart failure) Chronic anticoagulation Renal failure Rhabdomyolysis Pneumonia Hyponatremia Hyperlipemia SSS (sick sinus syndrome) Meniere disease Sleep apnea Surgical History History of permanent cardiac pacemaker placement History of endoscopy History of hysterectomy History of cardiac cath Family History Father Lung cancer Mother COPD (chronic obstructive pulmonary disease) Social History Household Members: Spouse Housing: House Do you presently have visiting nurse or other home services: Yes (VNA and OT) Alcohol intake: never Patient Tobacco Use Status: Former Tobacco user Years Smoked: 30 +/- e-Cigarette/Vaping Use: Never Used Second Hand Smoke Exposure: No Advance Directives Date on File: 02/06/23 service: No Current occupational status: retired Cognitive needs: No Hearing needs: Yes Vision needs: Yes Office Procedures Cardiac Device Check Cardiac Device Check Details: PPM Good battery life No new alerts. [employer] 38%. [id number] Cardiac Device Check, pacemaker dual lead Procedure code (CPT) selection complete Assessment & Plan Assessment & Plan (1) Cardiac pacemaker in situ: Code(s): Z95.0 - Presence of cardiac pacemaker Category: Medical Plan Coding Level of Care Code Procedure Only Diagnoses Cardiac pacemaker in situ Z95.0 CPT Codes Cardiac Device Check - Cardiac Device 2: 19466-[id number] Cardiac Device Check, pacemaker dual lead ([id number])
== END ==
PROVIDERS: PCP Internal Medicine; Visit Provider Internal Medicine Cardiovascular Disease
DX: Z45.018 Encounter for adjustment and management of other part of cardiac pacemaker (principal)
CPT/HCPCS: 93294

== ENCOUNTER 2024-05-27 09:24 | Outpatient (AMB) | payer MEDICARE, SELFPAY ==
--- NOTE | 2024-05-27 09:26 | A.OFFVIS_ITS ---
Vital Signs 05/27/24 09:27 Height 5 ft Weight 113 lb 5.082 oz BMI 22.1 BP 120/64 Blood Pressure Location Rt brachial Position Sitting Pulse 63 Pulse Source Pulse Oximeter Intake Visit Reasons: 4 mth f/up Intake Note: 4 mth f/up Official Court Interpreter Required: No Accompanied by: Sister Allergies gemifloxacin Allergy (Unknown, Verified 05/06/24 12:58) Rash montelukast [Singulair] Allergy (Unknown, Verified 05/06/24 12:58) mood swings Medication List - Last Reconciled 05/27/24 by Sunil Coto MD acetaminophen 650 mg PO Q6H PRN albuterol sulfate 90 mcg/actuation 2 puffs inhalation QID PRN albuterol sulfate 0.63 mg (3 mL) inhalation Q4-6H PRN apixaban (Eliquis) 5 mg PO BID azithromycin Monday and Monday calcium carbonate (Calcium 600) 600 mg PO BID cetirizine (Zyrtec) 10 mg PO DAILY Farxiga (dapagliflozin propanediol) 5 mg PO DAILY NS ferrous sulfate 324 mg PO TUTHSA fluticasone propion-salmeterol 500-50 mcg/dose (Wixela Inhub) 1 inh inhalation BID fluticasone propionate 50 mcg/actuation (Flonase Allergy Relief) 1 spray intranasal DAILY fluticasone propionate 50 mcg/actuation 2 sprays intranasal BID furosemide 20 mg PO BID ipratropium-albuterol 0.5 mg-3 mg(2.5 mg base)/3 mL 3 mL inhalation Q8H levothyroxine 25 mcg PO DAILY@0600 magnesium 400 mg PO BEDTIME multivitamin (Daily Multi-Vitamin tablet) 1 tab PO DAILY omeprazole 20 mg PO DAILY peg 400-propylene glycol (PF) 0.4-0.3 % (Systane (PF)) 1 drp ophthalmic (eye) BID potassium chloride ER 20 mEq PO DAILY pravastatin 20 mg PO BEDTIME zoledronic fxtb-jxsbrfaa-maecc 5 mg/100 mL (Reclast) 1 ea IV ONCE HPI Comments Details: Pleasant 79-year-old female who is here for follow-up. She was seen in the hospital which presented with influenza a, COPD exacerbation and congestive heart failure. She was diuresed and treated for heart failure and started on guideline directed medical therapy because her ejection fraction was severely reduced on echocardiogram. The pattern look like LAD ischemia versus takotsubo cardiomyopathy. After discussion she was referred to [facility] which she underwent cardiac catheterization by Dr. Givens because she belongs to [facility]. 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 She is here for follow-up after cardiac catheterization. She wishes to move her cardiovascular care to [facility]. She is denying any chest disco mfort. She has chronic dyspnea due to underlying COPD and is oxygen dependent. Repeat echocardiography has shown resolution of LV dysfunction. In the interim she saw primary care physician and was noticed to have atrial fibrillation. After discussion she was started on apixaban. On follow-up today she is denying any palpitations. She has no chest pain. She has shortness of breath due to underlying lung disease. She is fatigued and tired. She underwent cardiac rehabilitation and feels that she has more energy and felt better. She has finished her sessions for cardiac rehabilitation. 05/15/23: She returns for follow-up. She was admitted at [facility] in February 2023. She was diagnosed with pneumonia and was treated with antibiotics and transition to oral doxycycline at discharge. She had echocardiography while she was inpatient which showed EF of 60 65%, moderate left atrial dilatation, severe mitral annular calcification, nlrv-[id number] mitral regurgitation, moderate tricuspid valve regurgitation and moderate pulmonary hypertension. She contracted COVID-19 a week ago. She is saying she was getting better but last night she started coughing more. She is saying that she has been using more oxygen than usual to. She had some chills. No fevers otherwise. Appetite so far is fine. She is saying that she is producing green phlegm. Pacemaker interrogation was done which was quite unremarkable. 01/31/2024: She returns for follow-up. She has been stable from cardiovascular point of view. She still has some shortness of breath when she has out in the h eat due to lung disease. She continues to be on supplemental oxygen. Mild edema in the lower extremities where she has been taking amlodipine 2.5 mg daily. Blood pressure in the office is also low 80/60. She is not dizzy or lightheaded. 11/4/24: Here for follow up. Echocardiography done in 02/10/2024 showing EF 65- 70% without any regional wall motion abnormalities. Mild RV dysfunction. Moder ate mitral valve regurgitation and mild pulmonary hypertension. She had [id number]-hw-thytklqa mitral valve regurgitation in the past. There is severe mitral annular calcification. She is saying she has been doing well with supplemental oxygen. Recently she had an episode of shortness of breath and congestion and apparently it was felt that she has congestive heart failure episode. Her Lasix was increased to 20 mg twice a day from once a day and Farxiga was added. She is saying she has been doing well since the increase in Lasix. Overall appears to be quite euvolemic. She is asking about the mitral valve regurgitation. I have explained to her that she has calcific mitral valve disease and she has moderate mitral valve regurgitation. [facility] Medical History Osteoporosis Cardiac pacemaker in situ HTN (hypertension) PAF (paroxysmal atrial fibrillation) COPD (chronic obstructive pulmonary disease) CHF (congestive heart failure) Chronic anticoagulation Renal failure Rhabdomyolysis Pneumonia Hyponatremia Hyperlipemia SSS (sick sinus syndrome) Meniere disease Sleep apnea Surgical History History of permanent cardiac pacemaker placement History of endoscopy History of hysterectomy History of cardiac cath Family History Father Lung cancer Mother COPD (chronic obstructive pulmonary disease) Social History Household Members: Spouse Housing: House Do you presently have visiting nurse or other home services: Yes (VNA and OT) Alcohol intake: never Patient Tobacco Use Status: Former Tobacco user Years Smoked: 30 +/- e-Cigarette/Vaping Use: Never Used Second Hand Smoke Exposure: No Advance Directives Date on File: 02/06/23 service: No Current occupational status: retired Cognitive needs: No Hearing needs: Yes Vision needs: Yes Review of Systems Const Denies chills, Denies fatigue, Denies fever(s), Denies frequent falls, Denies weakness, Denies weight gain and Denies weight loss ENT Denies dizziness Card Denies chest pain, Denies leg edema, Denies lightheadedness, Denies palpitations, Denies dyspnea and Denies dyspnea on exertion Resp Denies cough, Denies dyspnea and Denies dyspnea on exertion GI Denies hematochezia Musc Denies abnormal gait, Denies muscle weakness, Denies numbness, Denies radiating pain into limb and Denies tingling Neuro Denies abnormal gait, Denies dizziness, Denies frequent falls, Denies numbness, Denies tingling and Denies weakness Endo Denies fatigue and Denies palpitations Physical Exam Vital Signs: BMI result Body Mass Index 22.1 GENERAL APPEARANCE: in no acute distress, pleasant. NECK: no carotid bruit, no jugular venous distention. SKIN: no suspicious lesions, warm and dry. HEART: no murmurs, regular rate and rhythm. LUNGS: CTABL ABDOMEN: soft, nontender. EXTREMITIES: No edema. PERIPHERAL PULSES: equal. NEUROLOGIC: No gross deficits, AAO X 3 Assessment & Plan Assessment & Plan (1) (HFpEF) heart failure with preserved ejection fraction: Comment: Echo 01/2024 increase left ventricle wall thickness, ejection fraction 65%, moderate MR, mild pulmonary hypertension Code(s): I50.30 - Unspecified diastolic (congestive) heart failure Category: Medical (2) HTN (hypertension): Comment: off Amlodipine 01/2024, d/cd by cardiology Code(s): I10 - Essential (primary) hypertension Category: Medical (3) Cardiac pacemaker in situ: Code(s): Z95.0 - Presence of cardiac pacemaker Category: Medical Plan Pleasant 79-year-old female who is here for follow-up. She has known history of COPD on supplemental oxygen. She also has episode of takotsubo cardiomyopathy in the setting of influenza. Her LVEF improved subsequently. She has severe mitral annular calcification and has moderate mitral valve regurgitation. Previously mitral regurgitation was [id number]. She had 1 episode of congestive heart failure by her report where Lasix was doubled and Farxiga was added to her regimen. She has been doing well with this change. She continues to be on supplemental oxygen up to 3-5 L at time. She is quite frail and deconditioned. I have advised her that she should be increasing her physical activity inside the house specially during weinberg otherwise as whether will improve she will feel worse than before. Overall from cardiovascular point of view she is stable. I have explained to her that she has calcific mitral valve disease and [id number] mitral regurgitation was noted before which was more moderate on the recent echocardiography but still this is something to observe for now. We will repeat her echocardiogram in a year. Thank you for allowing me to participate in the care of your patient. Please feel free to contact me if you have any questions. Coding Level of Care Code Est Pt Level 4 (65551) Diagnoses (HFpEF) heart failure with preserved ejection fraction I50.30 HTN (hypertension) I10 Cardiac pacemaker in situ Z95.0
[2024-05-27 09:27] VITALS: BP 120/64; PULSE 63; BMI 22.1
== END 2024-05-27 09:59 | disposition home or self-care (01) ==
LOC: HO.HCS 09:24
PROVIDERS: PCP Internal Medicine; Visit Provider Internal Medicine Cardiovascular Disease
DX: I50.30 Unspecified diastolic (congestive) heart failure (principal); I10 Essential (primary) hypertension; Z95.0 Presence of cardiac pacemaker
CPT/HCPCS: 99214

== ENCOUNTER → 2024-05-27 09:24 | Outpatient (BNVA) | payer MEDICARE, SELFPAY | PROVIDERS: PCP Internal Medicine; Visit Provider Internal Medicine Cardiovascular Disease | DX: I11.0 Hypertensive heart disease with heart failure (principal); I50.30 Unspecified diastolic (congestive) heart failure; Z95.0 Presence of cardiac pacemaker | CPT/HCPCS: 99212 ==

== ENCOUNTER 2024-05-29 08:29 | Outpatient (AMB) | payer MEDICARE, SELFPAY ==
[2024-05-29 08:38] VITALS: BP 102/60; PULSE 67; O2SAT 92; BMI 22.1
--- NOTE | 2024-05-29 08:38 | MHC.PC.OV ---
Vital Signs 05/29/24 08:38 Height 5 ft Weight 113 lb BMI 22.1 BP 102/60 Blood Pressure Location Rt brachial Position Sitting Pulse 67 Pulse Source Pulse Oximeter Pulse Oximetry (%) 92 Oxygen Delivery Method Nasal Cannula Intake Visit Reasons: 2 week follow up Intake Note: Pt is here today for 2 weeks follow up visit. Allergies gemifloxacin Allergy (Unknown, Verified 05/29/24 08:43) Rash montelukast [Singulair] Allergy (Unknown, Verified 05/29/24 08:43) mood swings Medication List - Last Reconciled 05/29/24 by Freida Yarbrough MD acetaminophen 650 mg PO Q6H PRN albuterol sulfate 90 mcg/actuation 2 puffs inhalation QID PRN albuterol sulfate 0.63 mg (3 mL) inhalation Q4-6H PRN apixaban (Eliquis) 5 mg PO BID azithromycin Monday and Monday calcium carbonate (Calcium 600) 600 mg PO BID cetirizine (Zyrtec) 10 mg PO DAILY Farxiga (dapagliflozin propanediol) 5 mg PO DAILY NS ferrous sulfate 324 mg PO TUTHSA fluticasone propion-salmeterol 500-50 mcg/dose (Wixela Inhub) 1 inh inhalation BID fluticasone propionate 50 mcg/actuation (Flonase Allergy Relief) 1 spray intranasal DAILY fluticasone propionate 50 mcg/actuation 2 sprays intranasal BID furosemide 20 mg PO BID ipratropium-albuterol 0.5 mg-3 mg(2.5 mg base)/3 mL 3 mL inhalation Q8H levothyroxine 25 mcg PO DAILY@0600 magnesium 400 mg PO BEDTIME multivitamin (Daily Multi-Vitamin tablet) 1 tab PO DAILY omeprazole 20 mg PO DAILY peg 400-propylene glycol (PF) 0.4-0.3 % (Systane (PF)) 1 drp ophthalmic (eye) BID potassium chloride ER 20 mEq PO DAILY pravastatin 20 mg PO BEDTIME zoledronic iebb-virwjqjo-zvmge 5 mg/100 mL (Reclast) 1 ea IV ONCE Tobacco use date assessed: 05/29/24 Dental Screening Dental Screen Date: 07/25/23 HPI 2 week follow up HPI Details Patient presents for the follow-up. She complains of persistent postnasal drip sinus congestion and intermittent cough with clear sputum. She denies wheezing worsening dyspnea on exertion. Patient has been using Wixela and ipratropium updrafts up to 3 times a day. Heart failure with preserved ejection fraction is stable. patient has been tolerating Farxiga well and taking 40 mg of furosemide. [facility] Medical History Osteoporosis Cardiac pacemaker in situ HTN (hypertension) PAF (paroxysmal atrial fibrillation) COPD (chronic obstructive pulmonary disease) CHF (congestive heart failure) Chronic anticoagulation Renal failure Rhabdomyolysis Pneumonia Hyponatremia Hyperlipemia SSS (sick sinus syndrome) Meniere disease Sleep apnea Surgical History History of permanent cardiac pacemaker placement History of endoscopy History of hysterectomy History of cardiac cath Family History Father Lung cancer Mother COPD (chronic obstructive pulmonary disease) Social History Household Members: Spouse Housing: House Do you presently have visiting nurse or other home services: Yes (VNA and OT) Alcohol intake: never Patient Tobacco Use Status: Former Tobacco user Years Smoked: 30 +/- e-Cigarette/Vaping Use: Never Used Second Hand Smoke Exposure: No Advance Directives Date on File: 02/06/23 service: No Current occupational status: retired Cognitive needs: No Hearing needs: Yes Vision needs: Yes Questionnaire Thrive Questionnaire Date Thrive assessed: 04/17/24 I am a: Patient What is your living situation today?: I have a steady place to live Within the past 12 months, did the food you bought not last and you didn't have the money to get more?: Never true Within the past 12 months, did you worry whether your food would run out before you got money to buy more?: Never true Do you have trouble paying for medicines?: No Do you have trouble getting transportation to medical appointments?: No Do you have trouble paying your heating and electricity bill?: No Do you have trouble taking care of your child, family member or friend?: No Do you have trouble with day-to-day activities such as bathing, preparing meals, shopping, managing finances, etc.?: No Are you currently unemployed and looking for a job?: No Are you interested in more education?: No Please select the resources that you would like help with: None Currently or been in a relationship where the following occur: No concerns reported THRIVE Score: 0 YUDELKA-7 AMB Questionnaire YUDELKA-7 Date YUDELKA - 7 assessed: 07/25/23 Source: Developed by Drs. Jerry Munoz, Karishma Melgar, Joaquin Ariza and colleagues, with an educational gaby from [employer]. Review of Systems Const All systems reviewed & are unremarkable except as noted in HPI and below ENT Reports no additional complaints Resp Reports no additional complaints GI Reports no additional complaints Reports no additional complaints Physical exam (Primary Care) Vital Signs: Last Vital Signs Pulse 67 05/29/24 08:38 BP 102/60 05/29/24 08:38 Pulse Ox 92 05/29/24 08:38 Oxygen Delivery Method Nasal Cannula 05/29/24 08:38 BMI result Body Mass Index 22.1 Tobacco/Smoking Status: Tobacco use Status Tobacco use date assessed 05/29/24 05/29/24 08:47 Patient Tobacco Use Status Former Tobacco user 05/29/24 08:38 e-Cigarette/Vaping Use Never Used 05/29/24 08:38 Thrive Assessment: Date of Thrive Assessment Date Thrive assessed 04/17/24 05/29/24 08:38 Currently or been in a relationship where the following occur: No concerns reported Eyes General: appearance normal, both eyes and all related structures Resp Effort & Inspection: able to speak in complete sentences Auscultation: crackles and diminished lung sounds Cardio Rhythm: regular rhythm Heart sounds: S1 normal heart sound present and S2 normal heart sound present GI Inspection: Yes normal to inspection Palpation (GI): Soft to palpation Percussion: Yes normal to percussion Coding Level of Care Code Est Pt Level 4 (74215) Complex EM visit Add On G2211 Diagnoses (HFpEF) heart failure with preserved ejection fraction I50.30 HTN (hypertension) I10 Hypokalemia E87.6 COPD (chronic obstructive pulmonary disease) J44.9 Assessment & Plan Assessment & Plan (1) (HFpEF) heart failure with preserved ejection fraction: Comment: Echo 01/2024 increase left ventricle wall thickness, ejection fraction 65%, moderate MR, mild pulmonary hypertension Code(s): I50.30 - Unspecified diastolic (congestive) heart failure Category: Medical Plan: Continue current medications check comprehensive panel today (2) HTN (hypertension): Comment: off Amlodipine 01/2024, d/cd by cardiology Code(s): I10 - Essential (primary) hypertension Category: Medical Plan: Stable blood pressure will monitor (3) Hypokalemia: Code(s): E87.6 - Hypokalemia Category: Medical Plan: Check CMP today (4) COPD (chronic obstructive pulmonary disease): Comment: O2 dependent, Dr. Rhoades, started on Azithromycin QOD by pul 01/2024 Code(s): J44.9 - Chronic obstructive pulmonary disease, unspecified Category: Medical Plan: Continue current treatment, add montelukast to Zyrtec for chronic postnasal drip and allergic rhinitis follow-up in 1 month Orders: Orders Comprehensive Met. Panel Today E55.9 - Vitamin D deficiency, unspecified, E87.6 - Hypokalemia, I10 - Essential (primary) hypertension, I48.0 - Paroxysmal atrial fibrillation, I50.30 - Unspecified diastolic (congestive) heart failure, J44.9 - Chronic obstructive pulmonary disease, unspecified Complete Blood Count Auto Diff Today E55.9 - Vitamin D deficiency, unspecified, E87.6 - Hypokalemia, I10 - Essential (primary) hypertension, I48.0 - Paroxysmal atrial fibrillation, I50.30 - Unspecified diastolic (congestive) heart failure, J44.9 - Chronic obstructive pulmonary disease, unspecified B Type Natriuretic Peptide Today E55.9 - Vitamin D deficiency, unspecified, I10 - Essential (primary) hypertension, I48.0 - Paroxysmal atrial fibrillation, I50.30 - Unspecified diastolic (congestive) heart failure, J44.9 - Chronic obstructive pulmonary disease, unspecified IRON PROFILE Today E55.9 - Vitamin D deficiency, unspecified, I10 - Essential (primary) hypertension, I48.0 - Paroxysmal atrial fibrillation, I50.30 - Unspecified diastolic (congestive) heart failure, J44.9 - Chronic obstructive pulmonary disease, unspecified TSH reflex Free T4 Today E55.9 - Vitamin D deficiency, unspecified, I10 - Essential (primary) hypertension, I48.0 - Paroxysmal atrial fibrillation, I50.30 - Unspecified diastolic (congestive) heart failure, J44.9 - Chronic obstructive pulmonary disease, unspecified Medications: New montelukast 10 mg PO BEDTIME 30 tabs 2RF
== END 2024-05-29 09:27 | disposition home or self-care (01) ==
LOC: HO.HMCC 08:30
PROVIDERS: PCP Internal Medicine; Visit Provider Internal Medicine
DX: I50.30 Unspecified diastolic (congestive) heart failure (principal); I10 Essential (primary) hypertension; E87.6 Hypokalemia; J44.9 Chronic obstructive pulmonary disease, unspecified

== ENCOUNTER 2024-05-29 08:29 | Outpatient (REF) | payer MEDICARE, SELFPAY ==
[2024-05-29 13:14] LABS: MANUAL DIFF FLAG NO
[2024-05-29 13:29] LABS: Basophils Absolute Auto 0.1 X10*3/uL (0.0-0.2); Basophils Percent Auto 0.6 % (0-2); Eosinophils Absolute Auto 0.1 X10*3/uL (0.0-0.4); Eosinophils Percent Auto 0.8 % (0-4); Hematocrit 41.7 % (37.0-47.0); Hemoglobin 13.8 g/dl (12.0-16.0); Imm Gran Abs Auto 0.03 X10*3/uL (0.00-0.03); Imm Gran Pct Auto 0.4 % (0.0-0.4); Lymphocytes Absolute Auto 1.3 X10*3/uL (1.2-4.9); Lymphocytes Percent Auto 16.4 % (20-40); Mean Corpuscular HGB Conc 33.1 g/dl (31.0-35.0); Mean Corpuscular Hemoglobin 32.6 pg (27.0-33.0); Mean Corpuscular Volume 98.6 fL (80.0-98.0); Mean Platelet Volume 10.2 fL (9.4-12.3); Monocytes Absolute Auto 0.5 X10*3/uL (0.1-1.2); Neutrophils Absolute Auto 5.8 x10*3/uL (2.0-8.3); Neutrophils Percent Auto 74.8 % (45-73); Platelet Count 260 X10*3/uL (160-400); Red Blood Count 4.23 X10*6/uL (4.20-5.50); Red Cell Distribution Width 14.1 % (11.0-16.0); White Blood Count 7.8 X10*3/uL (4.8-10.8)
[2024-05-29 13:40] LABS: B Type Natriuretic Peptide 195 pg/mL (<100)
[2024-05-29 13:58] LABS: Alanine Aminotransferase 19 U/L (0-31); Alkaline Phosphatase 49 U/L (39-117); Anion Gap 13 (12-20); Aspartate Amino Transferase 32 U/L (5-31); Bilirubin Total 0.6 mg/dL (0.0-1.0); Blood Urea Nitrogen 14 mg/dL (9-16); Calcium 9.5 mg/dL (8.4-10.2); Carbon Dioxide 26 mmol/L (22-29); Chloride 104 mmol/L (96-108); Estimated Glomerular Filt Rate > 60; Glucose Random 87 mg/dL (60-115); Iron 101 mcg/dL (30-160); Percent Iron Saturation 34 % (15-50); Potassium 3.7 mmol/L (3.3-5.1); Sodium 139 mmol/L (135-145); TSH reflex Free T4 2.79 uIU/mL (0.32-4.0); Total Iron Binding Capacity 293 mcg/dL (228-428); Unsaturated Iron Binding 192 ug/dL
== END 2024-05-29 08:30 | disposition home or self-care (01) ==
LOC: HO.HMGCLDS 08:29
PROVIDERS: PCP Internal Medicine; Visit Provider Internal Medicine
DX: I50.30 Unspecified diastolic (congestive) heart failure (principal); I11.0 Hypertensive heart disease with heart failure; E87.6 Hypokalemia; J44.9 Chronic obstructive pulmonary disease, unspecified; E55.9 Vitamin D deficiency, unspecified; I48.0 Paroxysmal atrial fibrillation
CPT/HCPCS: 36415; 80053; 83540; 83880; 84443; 85025; 99212

== ENCOUNTER 2024-07-01 10:07 | Outpatient (AMB) | payer MEDICARE, SELFPAY ==
[2024-07-01 10:44] VITALS: BP 122/66; PULSE 59; O2SAT 92; BMI 22.3
--- NOTE | 2024-07-01 10:44 | MHC.PC.OV ---
Vital Signs 07/01/24 10:44 Height 5 ft Weight 114 lb BMI 22.3 BP 122/66 Blood Pressure Location Rt brachial Position Sitting Pulse 59 Pulse Source Pulse Oximeter Pulse Oximetry (%) 92 Oxygen Delivery Method Nasal Cannula Intake Visit Reasons: 4 month f/u Intake Note: Pt is here today for 4 months follow up visit. Allergies gemifloxacin Allergy (Unknown, Verified 07/01/24 11:01) Rash montelukast [Singulair] Allergy (Unknown, Verified 07/01/24 11:01) mood swings Medication List - Last Reconciled 07/01/24 by Freida Yarbrough MD acetaminophen 650 mg PO Q6H PRN albuterol sulfate 0.63 mg (3 mL) inhalation Q4-6H PRN albuterol sulfate 90 mcg/actuation 2 puffs inhalation QID PRN apixaban (Eliquis) 5 mg PO BID calcium carbonate (Calcium 600) 600 mg PO BID cetirizine (Zyrtec) 10 mg PO DAILY Farxiga (dapagliflozin propanediol) 5 mg PO DAILY NS ferrous sulfate 324 mg PO TUTHSA fluticasone propion-salmeterol 500-50 mcg/dose (Wixela Inhub) 1 inh inhalation BID fluticasone propionate 50 mcg/actuation (Flonase Allergy Relief) 1 spray intranasal DAILY fluticasone propionate 50 mcg/actuation 2 sprays intranasal BID furosemide 20 mg PO BID ipratropium-albuterol 0.5 mg-3 mg(2.5 mg base)/3 mL 3 mL inhalation Q8H levothyroxine 25 mcg PO DAILY@0600 magnesium 400 mg PO BEDTIME multivitamin (Daily Multi-Vitamin tablet) 1 tab PO DAILY omeprazole 20 mg PO DAILY peg 400-propylene glycol (PF) 0.4-0.3 % (Systane (PF)) 1 drp ophthalmic (eye) BID potassium chloride ER 20 mEq PO DAILY pravastatin 20 mg PO BEDTIME Tobacco use date assessed: 05/29/24 Dental Screening Dental Screen Date: 07/25/23 HPI 4 month f/u HPI Details Patient presents for the follow-up of advanced COPD/asthma oxygen dependent, heart failure with preserved ejection fraction hyperlipidemia hypothyroidism stable on current medications PFSH Medical History Osteoporosis Cardiac pacemaker in situ HTN (hypertension) PAF (paroxysmal atrial fibrillation) COPD (chronic obstructive pulmonary disease) CHF (congestive heart failure) Chronic anticoagulation Renal failure Rhabdomyolysis Pneumonia Hyponatremia Hyperlipemia SSS (sick sinus syndrome) Meniere disease Sleep apnea Surgical History History of permanent cardiac pacemaker placement History of endoscopy History of hysterectomy History of cardiac cath Family History Father Lung cancer Mother COPD (chronic obstructive pulmonary disease) Social History Household Members: Spouse Housing: House Do you presently have visiting nurse or other home services: Yes (VNA and OT) Alcohol intake: never Patient Tobacco Use Status: Former Tobacco user Years Smoked: 30 +/- e-Cigarette/Vaping Use: Never Used Second Hand Smoke Exposure: No Advance Directives Date on File: 02/06/23 service: No Current occupational status: retired Cognitive needs: No Hearing needs: Yes Vision needs: Yes Questionnaire Thrive Questionnaire Date Thrive assessed: 04/17/24 I am a: Patient What is your living situation today?: I have a steady place to live Within the past 12 months, did the food you bought not last and you didn't have the money to get more?: Never true Within the past 12 months, did you worry whether your food would run out before you got money to buy more?: Never true Do you have trouble paying for medicines?: No Do you have trouble getting transportation to medical appointments?: No Do you have trouble paying your heating and electricity bill?: No Do you have trouble taking care of your child, family member or friend?: No Do you have trouble with day-to-day activities such as bathing, preparing meals, shopping, managing finances, etc.?: No Are you currently unemployed and looking for a job?: No Are you interested in more education?: No Please select the resources that you would like help with: None Currently or been in a relationship where the following occur: No concerns reported THRIVE Score: 0 YUDELKA-7 AMB Questionnaire YUDELKA-7 Date YUDELKA - 7 assessed: 07/25/23 Source: Developed by Karishma Burris. Ramón, Joaquin Ariza and colleagues, with an educational gaby from [employer]. Review of Systems Const All systems reviewed & are unremarkable except as noted in HPI and below Eyes Reports no additional complaints ENT Reports no additional complaints Card Reports no additional complaints Resp Reports no additional complaints GI Reports no additional complaints Reports no additional complaints Physical exam (Primary Care) Vital Signs: Last Vital Signs Pulse 59 07/01/24 10:44 BP 122/66 07/01/24 10:44 Pulse Ox 92 07/01/24 10:44 Oxygen Delivery Method Nasal Cannula 07/01/24 10:44 BMI result Body Mass Index 22.3 Tobacco/Smoking Status: Tobacco use Status Tobacco use date assessed 05/29/24 07/01/24 10:44 Patient Tobacco Use Status Former Tobacco user 07/01/24 10:44 e-Cigarette/Vaping Use Never Used 07/01/24 10:44 Thrive Assessment: Date of Thrive Assessment Date Thrive assessed 04/17/24 07/01/24 10:44 Currently or been in a relationship where the following occur: No concerns reported Const General: no acute distress HENMT Head: Yes normal to inspection Eyes General: appearance normal, both eyes and all related structures Neck Neck: Yes supple Resp Effort & Inspection: able to speak in complete sentences Auscultation: rhonchi and diminished lung sounds Cardio Rhythm: regular rhythm Heart sounds: S1 normal heart sound present and S2 normal heart sound present Extrem General: Yes no clubbing, cyanosis or edema Coding Level of Care Code Est Pt Level 4 (35906) Complex EM visit Add On G2211 Diagnoses (HFpEF) heart failure with preserved ejection fraction I50.30 PAF (paroxysmal atrial fibrillation) I48.0 COPD (chronic obstructive pulmonary disease) J44.9 Assessment & Plan Assessment & Plan (1) (HFpEF) heart failure with preserved ejection fraction: Comment: Echo 01/2024 increase left ventricle wall thickness, ejection fraction 65%, moderate MR, mild pulmonary hypertension Code(s): I50.30 - Unspecified diastolic (congestive) heart failure Category: Medical Plan: Continue current medications follow-up with the Cardiology (2) PAF (paroxysmal atrial fibrillation): Comment: 10/13 Holter frequent APCs, s/p pacemaker for SSS, on Eliquis Code(s): I48.0 - Paroxysmal atrial fibrillation Category: Medical Plan: Continue Eliquis (3) COPD (chronic obstructive pulmonary disease): Comment: O2 dependent, Dr. Rhoades, started on Azithromycin QOD by pul 01/2024, ? Extrinsic asthma allergic to cats and dust, tried immunotherapy in the past, montelukast caused mood swings Code(s): J44.9 - Chronic obstructive pulmonary disease, unspecified Category: Medical Plan: Continue current treatment supplemental O2 follow-up with pulmonology, follow-up in 2 months with a fasting labs before Orders: Orders Comprehensive [place]. Panel Fast 2 Months E87.6 - Hypokalemia, I50.30 - Unspecified diastolic (congestive) heart failure, J44.9 - Chronic obstructive pulmonary disease, unspecified TSH reflex Free T4 2 Months E87.6 - Hypokalemia, I50.30 - Unspecified diastolic (congestive) heart failure, J44.9 - Chronic obstructive pulmonary disease, unspecified Complete Blood Count Auto Diff 2 Months E87.6 - Hypokalemia, I50.30 - Unspecified diastolic (congestive) heart failure, J44.9 - Chronic obstructive pulmonary disease, unspecified
== END 2024-07-01 11:56 | disposition home or self-care (01) ==
PROVIDERS: PCP Internal Medicine; Visit Provider Internal Medicine
DX: I50.30 Unspecified diastolic (congestive) heart failure (principal); I48.0 Paroxysmal atrial fibrillation; J44.9 Chronic obstructive pulmonary disease, unspecified

== ENCOUNTER → 2024-07-01 10:07 | Outpatient (BNVA) | payer MEDICARE, SELFPAY | PROVIDERS: PCP Internal Medicine; Visit Provider Internal Medicine | DX: I11.0 Hypertensive heart disease with heart failure (principal); I50.30 Unspecified diastolic (congestive) heart failure; I48.0 Paroxysmal atrial fibrillation; J44.9 Chronic obstructive pulmonary disease, unspecified | CPT/HCPCS: 99212 ==

== ENCOUNTER → 2024-08-25 23:59 | Outpatient (BNV) | payer MEDICARE, SELFPAY ==
--- NOTE | 2024-08-28 11:08 | A.OFFVIS_ITS ---
Intake Visit Reasons: Remote device check- [facility] Allergies gemifloxacin Allergy (Unknown, Verified 07/01/24 11:01) Rash montelukast [Singulair] Allergy (Unknown, Verified 07/01/24 11:01) mood swings [facility] Medical History Osteoporosis Cardiac pacemaker in situ HTN (hypertension) PAF (paroxysmal atrial fibrillation) COPD (chronic obstructive pulmonary disease) CHF (congestive heart failure) Chronic anticoagulation Renal failure Rhabdomyolysis Pneumonia Hyponatremia Hyperlipemia SSS (sick sinus syndrome) Meniere disease Sleep apnea Surgical History History of permanent cardiac pacemaker placement History of endoscopy History of hysterectomy History of cardiac cath Family History Father Lung cancer Mother COPD (chronic obstructive pulmonary disease) Social History Household Members: Spouse Housing: House Do you presently have visiting nurse or other home services: Yes (VNA and OT) Alcohol intake: never Patient Tobacco Use Status: Former Tobacco user Years Smoked: 30 +/- e-Cigarette/Vaping Use: Never Used Second Hand Smoke Exposure: No Advance Directives Date on File: 02/06/23 service: No Current occupational status: retired Cognitive needs: No Hearing needs: Yes Vision needs: Yes Office Procedures Cardiac Device Check Cardiac Device Check Details: [place] dual-chamber pacemaker. Battery life 8.5-8.8 years. DDD mode. V paced 53%. A paced 83%. Episodes of pacemaker mediated tachycardia recorded. We will bring the patient in for in-person device interrogation with the rep. [id number] Cardiac Device Check, pacemaker dual lead Procedure code (CPT) selection complete Assessment & Plan Assessment & Plan (1) Cardiac pacemaker in situ: Code(s): Z95.0 - Presence of cardiac pacemaker Category: Medical Plan Orders: Orders AMB Cardiac Device Follow-up 08/25/24 Z95.0 - Presence of cardiac pacemaker Coding Level of Care Code Procedure Only Diagnoses Cardiac pacemaker in situ Z95.0 CPT Codes Cardiac Device Check - Cardiac Device 2: [id number]-IP Cardiac Device Check, pacemaker dual lead ([id number])
== END ==
PROVIDERS: PCP Internal Medicine; Visit Provider Internal Medicine Cardiovascular Disease
DX: R00.0 Tachycardia, unspecified (principal); Z95.0 Presence of cardiac pacemaker
CPT/HCPCS: 93294

== ENCOUNTER 2024-08-27 13:00 | Outpatient (REF) | payer MEDICARE, SELFPAY ==
--- OUTSIDE RECORDS SUMMARY | 2024-08-27 15:01 | XMS_ITS | Clinical Summary ---
Author Organization [employer] [facility] ity Address [address] [place] [address] Care Team Providers Care Graphic Manager Name Role Phone Freida Yarbrough MD Primary Care Provider [phone] Surgical History Surgery Date Site/Laterality Comments OTHER SURGICAL HISTORY PROCEDURE: DENIES PREVIOUS SURGERY Medical History Medical History Date Comments Asthma DX:Asthma High blood pressure DX:High bloo d pressure COPD (chronic obstructive pu lmonary disease) ([facility]) DX:COPD (chronic obstructive pulmonary disease) ([facility]) Historical Medical DX DX:Emphyse ma Family History Medical History Relation Name Comments Other: unknown heart condition Father Heart failure Maternal Grandmother Relation Name Status Comments Father Maternal Grandmother Social History Tobacco Use Types Packs/Day Years Used Date Smoking Tobacco: Former Cigarettes Q uit: 07/23/1990 Smokeless Tobacco: Never Alcohol Use Standard Drinks/Week Comments No 0 (1 standard drink = 0.6 oz pur e alcohol) Sex and Gender Information Value Date Recorded Sex Assigned at Not on file Gender Identity Not on file Sexual Orientation Not on file Obstetrics History Last Filed Vital Signs Vital Sign Reading Time Taken Comments Blood Pressure 140/80 02/28/2022 10:07 AM EDT Sitting R Arm Pulse 68 02/28/2022 10:07 AM EDT Temperature - - Respiratory Rate - - Oxygen Saturation 98% 02/28/2022 10: 07 AM EDT 2L of 02 Inhaled Oxygen Concentration - - Weight 64.1 kg (141 lb 6.4 oz) 02/28/2022 10:07 AM EDT Height 152.4 cm (5') 02/28/2022 10:07 AM EDT Body Mass Index 27.62 02/28/2022 10:07 AM EDT Plan of Treatment Health Maintenance Due Date Last Done Comments DTaP,Tdap,and Td Vaccines (1 - Tdap) 1963 Zoster Vaccines (1 of 2) 1994 Pneumococcal Vaccine: 65+ Years (1 of 1 - PCV) 2009 RSV Immunization Patients 60 + Years Old (1 - 1-dose 75+ series) 2019 Cholesterol Screening (Lipid Panel) 07/02/2022 Depression Screening 07/02/2022 Falls Risk Assessment 07/02/2022 Social Influencers of Health Screening 07/02/2022 Hypertension/CHF/CAD Annual BMP Blood Test 07/03/2022 COVID-19 Vaccine ( - 2023-2 5 season) 2024 Influenza Vaccine (#1) 2024 Osteoporosis Screening (Bone Density Screening) 07/05/2031 07/05/2021, 04/18/2019 HIB Vaccines Aged Out No longer eligi ble based on patient's age to complete this topic HPV Vaccines Aged Out No longer eligi ble based on patient's age to complete this topic Hepatitis A Vaccines Aged Out No long er eligible based on patient's age to complete this topic Hepatitis B Vaccines Aged Out No long er eligible based on patient's age to complete this topic IPV Vaccines Aged Out No longer eligi ble based on patient's age to complete this topic MMR Vaccines Aged Out No longer eligi ble based on patient's age to complete this topic Meningococcal ACWY Vaccine Aged Out N o longer eligible based on patient's age to complete this topic RSV Immunization Patients Under 20 months Aged Out No longer eligible b ased on patient's age to complete this topic Varicella Vaccines Aged Out No longer eligible based on patient's age to complete this topic Procedures Procedure Name Priority Date/Time Associated Diagnosis Comments [facility] DEXA AXIAL SKELETON Routine 07/05/2021 3:14 PM EST Age-related osteoporosis without current pathological fracture from Last 3 Months or Most Recently Relevant to Health Maintenance Results * [facility] DEXA AXIAL SKELETON (07/05/2021 3:14 PM EST) Anatomical Region Laterality Modality Mammography 07/05/2021 10:2 7 AM EST Narrative 07/05/2021 3:14 PM EST [facility] Diagnostic Imaging Department [address] [place] [address] Patient: ??AYLIN RAMIREZ ?/Age/Sex: 1945 - 76 - F Unit#: ??[id number] ? Location/Status: ??SPDIMAM/REG CLI ? Mnemonic/Ordering Site: ??MAMDEXAAX/SPMAM Ordering Physician: ??MAYRA CUELLO MD [facility] Dexa Axial Skeleton - 07/05/21 - 1105 [facility] Dexa Axial Skeleton INDICATION: POSTMENOPAUSAL Technique: Bone densitometry was performed utilizing dual energy x-ray absorptiometry (DEXA). The lumbar spine is evaluated in the AP projection from L1 through L4, though L3 was omitted because of endplate sclerosis. The proximal femora are evaluated in the AP projection bilaterally. The patient is taking calcium and vitamin D supplements. COMPARISON: 04/17/2019 FINDINGS: AP spine: Bone mineral density: 1.031 gm/cm2 T-score: -1.2 Right femoral neck: Bone mineral density: 0.654 gm/cm2 T-score: -2.8 IMPRESSION: Findings suggesting osteoporosis, placing the patient at risk for fracture. [id number] Dictating Physician: ??YUNG BURNS MD Electronically Signed by: ??YUNG BURNS MD Dic Date/Time: ??07/05/211512 Sign date/Time: ??07/05/21 552 Procedure Note Yung Burns MD - 07/13/2022 [facility] Diagnostic Imaging Department [address] [place] [address] Patient: AYLIN RAMIREZ Lissette /Age/Sex: 1945 - 76 - F Unit#: [id number] Location/Status: SPDIMAM/REG CLI Mnemonic/Ordering Site: [facility] Ordering Physician: MAYRA CUELLO MD [facility] Dexa Axial Skeleton - 07/05/21 - 1105 [facility] Dexa Axial Skeleton INDICATION: POSTMENOPAUSAL Technique: Bone densitometry was performed utilizing dual energy x-ray absorptiometry (DEXA). The lumbar spine is evaluated in the AP projectionfrom L1 through L4, though L3 was omitted because of endplate sclerosis. Theproximal femora are evaluated in the AP projection bilaterally. The patient is taking calcium and vitamin D supplements. COMPARISON: 04/17/2019 FINDINGS: AP spine: Bone mineral density: 1.031 gm/cm2 T-score: -1.2 Right femoral neck: Bone mineral density: 0.654 gm/cm2 T-score: -2.8 IMPRESSION: Findings suggesting osteoporosis, placing the patient at risk forfracture. 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 Health Care Decision (hx) 08/29/2012 AD GARDNER DIRECTIVE Health Care Decision (hx) 08/29/2012 AD GARDNER DIRECTIVE Health Care Decision (hx) 08/29/2012 AD GARDNER DIRECTIVE Health Care Decision (hx) 08/29/2012 AD GARDNER DIRECTIVE Health Care Decision (hx) 08/29/2012 AD GARDNER DIRECTIVE Health Care Decision (hx) 08/29/2012 AD GARDNER DIRECTIVE Health Care Decision (hx) 08/29/2012 AD GARDNER DIRECTIVE Health Care Decision (hx) 08/29/2012 AD GARDNER DIRECTIVE Health Care Decision (hx) 08/29/2012 AD GARDNER DIRECTIVE Care Teams Graphic Manager Relationship Specialty Start Date End Date Freida Yarbrough MD PCP - General Internal Medicine 1945
--- OUTSIDE RECORDS SUMMARY | 2024-08-27 15:01 | XMS_ITS ---
Author Organization [facility] Address Unknown Allergies, Adverse Reactions, Alerts Substance Reaction Status Noted Date Resolved Date Montelukast Cutaneous reactions active 03/21/2023 Problems Problem Status Start Date End Date MUSCLE WASTING AND ATROPHY, NOT ELSEWHERE CLASSIFIED, MULTIPLE SITES (Primary) (M62.59 - ICD-10-CM) ACTIVE 03/21/2023 ACUTE AND CHRONIC RESPIRATOR Y FAILURE, UNSPECIFIED WHETHER WITH HYPOXIA OR HYPERCAPNIA (J96.20 - ICD-10-CM) ACTIVE 03/21/2023 PNEUMONIA, UNSPECIFIED ORGANISM (J18.9 - ICD-10-CM) AC TIVE 03/21/2023 CHRONIC OBSTRUCTIVE PULMONAR Y DISEASE, UNSPECIFIED (J44.9 - ICD-10-CM) ACTIVE 03/21/2023 PERIPHERAL VASCULAR DISEASE, UNSPECIFIED (I73.9 - ICD-10-CM) ACTIVE 03/21/2023 AGE-RELATED OSTEOPOROSIS WIT HOUT CURRENT PATHOLOGICAL FRACTURE (M81.0 - ICD-10-CM) ACTIVE 03/21/2023 HEART FAILURE, UNSPECIFIED (I50.9 - ICD-10-CM) ACTIVE 03/21/2023 UNSPECIFIED PROTEIN-CALORIE MALNUTRITION (E46 - ICD-10 -CM) ACTIVE 03/21/2023 PRESENCE OF CARDIAC PACEMAKER (Z95.0 - ICD-10-CM) ACTI VE 03/21/2023 ESSENTIAL (PRIMARY) HYPERTENSION (I10 - ICD-10-CM) ACT BRAD 03/21/2023 MENIERE'S DISEASE, UNSPECIFIED EAR (H81.09 - ICD-10-CM ) ACTIVE 03/21/2023 SICK SINUS SYNDROME (I49.5 - ICD-10-CM) ACTIVE 0 03/21/2023 HYPERLIPIDEMIA, UNSPECIFIED (E78.5 - ICD-10-CM) ACTIVE 03/21/2023 Encounters Encounter Performer Performer Role Encounter Diagnoses Location Date Discharge - Discharged to home or self care - Home - [facility] 3 04:23 pm EDT - 3 12:02 pm EDT Social History
[2024-08-27 17:02] LABS: Appearance Urine Clear; Color Urine Yellow; Glucose Urine UA >=1000 mg/dL (Negative); Leukocyte Esterase Urine Small (1+) (Negative); Nitrite Urine Negative (Negative); PH 6.5 (5.0-9.0); Specific Gravity - Urine >= 1.030 (1.005-1.025); UMIC TRIGGER UA YES; Urine Blood Negative (Negative); Urine Ketones Negative (Negative); Urine Protein Trace mg/dL (Neg-Trace)
[2024-08-27 17:12] LABS: Bacteria Urine Trace (None Seen); Hyaline Casts Urine 0-2 /LPF (0-2); RBC Urine 0-2 /HPF (0-2)
== END 2024-08-27 13:01 | disposition home or self-care (01) ==
LOC: HO.HMGCLNP 13:00
PROVIDERS: PCP Internal Medicine; Visit Provider Internal Medicine
DX: R30.0 Dysuria (principal)
CPT/HCPCS: 81001; 87086

== ENCOUNTER 2024-09-02 11:04 | Outpatient (REF) | payer MEDICARE, SELFPAY ==
--- OUTSIDE RECORDS SUMMARY | 2024-09-02 12:13 | XMS_ITS | Clinical Summary ---
Author Organization [facility] ity Address [address] [place] [address] Care Team Providers Care Desktop Support Engineer Name Role Phone Freida Yarbrough MD Primary Care Provider [phone] Surgical History Surgery Date Site/Laterality Comments OTHER SURGICAL HISTORY PROCEDURE: DENIES PREVIOUS SURGERY Medical History Medical History Date Comments Asthma DX:Asthma High blood pressure DX:High bloo d pressure COPD (chronic obstructive pu lmonary disease) ([facility]) DX:COPD (chronic obstructive pulmonary disease) ([facility]) Historical Medical DX DX:Emphyse ma Family History Medical History Relation Name Comments Other: unknown heart condition Father Heart failure Maternal Grandmother Relation Name Status Comments Father Maternal Grandmother Social History Tobacco Use Types Packs/Day Years Used Date Smoking Tobacco: Former Cigarettes Q uit: 07/23/1990 Smokeless Tobacco: Never Alcohol Use Standard Drinks/Week Comments No 0 (1 standard drink = 0.6 oz pur e alcohol) Comments Unknown Sex and Gender Information Value Date Recorded Sex Assigned at Not on file Legal Sex Female 6:04 PM EST Gender Identity Not on file Sexual Orientation [...] Comments DTaP,Tdap,and Td Vaccines (1 - Tdap) 1951 Pneumococcal Vaccine: 50+ Years (1 of 1 - PCV) 1994 Zoster Vaccines (1 of 2) 1994 RSV Immunization Patients 60 + Years Old [...] patient's age to complete this topic Meningococcal B Vacine Aged Out No lo nger eligible based on patient's age to complete this topic RSV Immunization Patients Under 20 months Aged Out No longer eligible b ased on patient's age to complete this topic Varicella Vaccines Aged Out No longer eligible based on patient's age to complete this topic Procedures Procedure Name Priority Date/Time Associated Diagnosis Comments [facility] DEXA AXIAL SKELETON Routine 07/05/2021 3:14 PM EST Age-related osteoporosis without current pathological fracture from Last 3 Months or Most Recently Relevant to Health Maintenance Results * [facility] DEXA AXIAL SKELETON (07/05/2021 3:14 PM EST) Anatomical Region Laterality Modality Mammography 07/05/2021 10:2 7 AM EST Narrative 07/05/2021 3:14 PM [facility] Diagnostic Imaging Department [address] [place] [address] Patient: ??AYLIN RAMIREZ ?/Age/Sex: 1945 - 76 - F Unit#: ??[id number] ? Location/Status: ??SPDIMAM/REG CLI ? Mnemonic/Ordering Site: ??MAMDEXAAX/SPMAM Ordering Physician: ??MAYRA CUELLO MD [facility] Dexa Axial Skeleton - 07/05/21 - 1105 [facility] Dexa Axial Skeleton INDICATION: POSTMENOPAUSAL Technique: Bone [...] placing the patient at risk for fracture. [id number] Dictating Physician: ??YUNG BURNS MD Electronically Signed by: ??YUNG BURNS MD Dic Date/Time: ??07/05/211512 Sign date/Time: ??07/05/21 151 Procedure Note Yung Burns MD - 07/13/2022 [facility] Diagnostic Imaging Department [address] [place] [address] Patient: AYLIN RAMIREZ Lissette /Age/Sex: 1945 - 76 - F Unit#: [id number] Location/Status: SPDIMA/REG CLI [facility] Ordering Physician: MAYRA CUELLO MD [facility] Dexa Axial Skeleton - 07/05/21 - 5 [facility] Dexa Axial Skeleton INDICATION: POSTMENOPAUSAL Technique: Bone [...] osteoporosis, placing the patient at risk forfracture. 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
[2024-09-02 13:12] LABS: MANUAL DIFF FLAG NO
[2024-09-02 13:27] LABS: Basophils Absolute Auto 0.1 X10*3/uL (0.0-0.2); Basophils Percent Auto 0.7 % (0-2); Eosinophils Absolute Auto 0.1 X10*3/uL (0.0-0.4); Eosinophils Percent Auto 1.2 % (0-4); Hematocrit 43.6 % (37.0-47.0); Hemoglobin 13.9 g/dl (12.0-16.0); Imm Gran Abs Auto 0.03 X10*3/uL (0.00-0.03); Imm Gran Pct Auto 0.4 % (0.0-0.4); Lymphocytes Absolute Auto 1.5 X10*3/uL (1.2-4.9); Lymphocytes Percent Auto 20.4 % (20-40); Mean Corpuscular HGB Conc 31.9 g/dl (31.0-35.0); Mean Corpuscular Hemoglobin 32.2 pg (27.0-33.0); Mean Corpuscular Volume 100.9 fL (80.0-98.0); Mean Platelet Volume 10.5 fL (9.4-12.3); Monocytes Absolute Auto 0.4 X10*3/uL (0.1-1.2); Neutrophils Absolute Auto 5.1 x10*3/uL (2.0-8.3); Neutrophils Percent Auto 71.3 % (45-73); Platelet Count 251 X10*3/uL (160-400); Red Blood Count 4.32 X10*6/uL (4.20-5.50); Red Cell Distribution Width 13.2 % (11.0-16.0); White Blood Count 7.2 X10*3/uL (4.8-10.8)
[2024-09-02 13:44] LABS: Alanine Aminotransferase 17 U/L (0-31); Alkaline Phosphatase 47 U/L (39-117); Anion Gap 11 (12-20); Aspartate Amino Transferase 29 U/L (5-31); Bilirubin Total 0.7 mg/dL (0.0-1.0); Blood Urea Nitrogen 17 mg/dL (9-16); Calcium 9.2 mg/dL (8.4-10.2); Carbon Dioxide 27 mmol/L (22-29); Chloride 109 mmol/L (96-108); Estimated Glomerular Filt Rate > 60; Glucose Fasting 92 mg/dL (60-99); Potassium 4.1 mmol/L (3.3-5.1); Sodium 143 mmol/L (135-145); Total Protein 7.4 g/dL (6.5-8.0)
[2024-09-02 14:12] LABS: TSH reflex Free T4 2.35 uIU/mL (0.32-4.0)
== END 2024-09-02 11:05 | disposition home or self-care (01) ==
LOC: HO.HMGCLDS 11:04
PROVIDERS: PCP Internal Medicine; Visit Provider Internal Medicine
DX: E87.6 Hypokalemia (principal); J44.9 Chronic obstructive pulmonary disease, unspecified; I50.30 Unspecified diastolic (congestive) heart failure; I48.0 Paroxysmal atrial fibrillation
CPT/HCPCS: 36415; 80053; 84443; 85025; 87086; 99212

== ENCOUNTER 2024-09-02 11:06 | Outpatient (AMB) | payer MEDICARE, SELFPAY ==
--- NOTE | 2024-09-02 11:09 | MHC.PC.OV ---
Vital Signs 09/02/24 11:14 Height 5 ft Weight 113 lb BMI 22.1 BP 106/68 Blood Pressure Location Lt brachial Position Sitting Respiration 20 Pulse 60 Pulse Source Pulse Oximeter Temp 97.6 F Temp Source Oral Pulse Oximetry (%) 90 L Oxygen Delivery Method Nasal Cannula Intake Visit Reasons: Sinus/cold/ear Intake Note: Pt is here today for a sick visit. Pt c/o R ear pain, pt also states that she has sinus congestion. Allergies gemifloxacin Allergy (Unknown, Verified 09/02/24 11:17) Rash montelukast [Singulair] Allergy (Unknown, Verified 09/02/24 11:17) mood swings Medication List - Last Reconciled 09/02/24 by Freida Yarbrough MD acetaminophen 650 mg PO Q6H PRN albuterol sulfate 0.63 mg (3 mL) inhalation Q4-6H PRN albuterol sulfate 90 mcg/actuation 2 puffs inhalation QID PRN apixaban (Eliquis) 5 mg PO BID calcium carbonate (Calcium 600) 600 mg PO BID cetirizine (Zyrtec) 10 mg PO DAILY Farxiga (dapagliflozin propanediol) 5 mg PO DAILY NS ferrous sulfate 324 mg PO TUTHSA fluticasone propion-salmeterol 500-50 mcg/dose (Wixela Inhub) 1 inh inhalation BID fluticasone propionate 50 mcg/actuation (Flonase Allergy Relief) 1 spray intranasal DAILY fluticasone propionate 50 mcg/actuation 2 sprays intranasal BID furosemide 20 mg PO BID ipratropium-albuterol 0.5 mg-3 mg(2.5 mg base)/3 mL 3 mL inhalation Q8H levothyroxine 25 mcg PO DAILY@0600 magnesium 400 mg PO BEDTIME multivitamin (Daily Multi-Vitamin tablet) 1 tab PO DAILY omeprazole 20 mg PO DAILY peg 400-propylene glycol (PF) 0.4-0.3 % (Systane (PF)) 1 drp ophthalmic (eye) BID potassium chloride ER 20 mEq PO DAILY pravastatin 20 mg PO BEDTIME Trelegy Ellipta 200-62.5-25 mcg (wtpkdpiimri-tzczkxaku-ngepiqhi) 1 inh inhalation DAILY NS Tobacco use date assessed: 09/02/24 Last assessed Fall Risk: 09/02/24 Dental Screening Dental Screen Date: 09/02/24 Did you have a dental visit in the last 12 months?: Yes Did you have a dental problem in the last 6 months where you did not have access to dental care?: No Was dental information given to patient?: Patient has dentist HPI Sinus/cold/ear HPI Details Patient presents complaining of sinus congestion pressure headache for 1 week. She reports green discharge from the nose and occasionally increasing coughing. Patient denies palpitations or chest pain. She had tried Farxiga for heart failure with preserved ejection fraction but reports feeling tired weak and having increased urinary frequency since started the medication. Patient has been using Wixela for COPD/asthma and supplemental O2. Patient used to see pulmonology Dr. Rhoades but would like to switch to [facility]. [facility] Medical History (Updated 09/02/24 @ 12:15 by Freida Yarbrough MD) Osteoporosis Cardiac pacemaker in situ HTN (hypertension) PAF (paroxysmal atrial fibrillation) COPD (chronic obstructive pulmonary disease) Chronic anticoagulation Renal failure Rhabdomyolysis Pneumonia Hyponatremia Hyperlipemia SSS (sick sinus syndrome) Meniere disease Sleep apnea Surgical History History of permanent cardiac pacemaker placement History of endoscopy History of hysterectomy History of cardiac cath Family History Father Lung cancer Mother COPD (chronic obstructive pulmonary disease) Social History Household Members: Spouse Housing: House Do you presently have visiting nurse or other home services: Yes (VNA and OT) Alcohol intake: never Patient Tobacco Use Status: Former Tobacco user Years Smoked: 30 +/- e-Cigarette/Vaping Use: Never Used Second Hand Smoke Exposure: No Advance Directives Date on File: 02/06/23 service: No Current occupational status: retired Cognitive needs: No Hearing needs: Yes Vision needs: Yes Questionnaire Thrive Questionnaire Date Thrive assessed: 04/17/24 AUDIT C Alcohol Use Questionnaire (AUDIT-C) 1. How often do you have a drink containing alcohol?: Never 3. How often do you have six or more drinks on one occasion?: Never Total Score: 0 YUDELKA-7 AMB Questionnaire YUDELKA-7 Date YUDELKA - 7 assessed: 07/25/23 Source: Developed by Drs. Jerry Munoz, Karishma Melgar, Joaquin Ariza and colleagues, with an educational gaby from [employer]. Review of Systems Const All systems reviewed & are unremarkable except as noted in HPI and below ENT Reports no additional complaints Card Reports no additional complaints Resp Reports no additional complaints GI Reports no additional complaints Reports no additional complaints Physical exam (Primary Care) Vital Signs: Last Vital Signs Temp 97.6 F 09/02/24 11:14 Pulse 60 09/02/24 11:14 Resp 20 09/02/24 11:14 BP 106/68 09/02/24 11:14 Pulse Ox 90 L 09/02/24 11:14 Oxygen Delivery Method Nasal Cannula 09/02/24 11:14 BMI result Body Mass Index 22.1 Tobacco/Smoking Status: Tobacco use Status Tobacco use date assessed 09/02/24 09/02/24 11:18 Patient Tobacco Use Status Former Tobacco user 09/02/24 11:10 e-Cigarette/Vaping Use Never Used 09/02/24 11:10 Thrive Assessment: Date of Thrive Assessment Date Thrive assessed 04/17/24 09/02/24 11:10 Const General: no acute distress HENMT Head: Yes normal to inspection Face and sinus: Yes normal facial exam and Yes sinus tenderness Throat: Yes postnasal drainage Eyes General: appearance normal, both eyes and all related structures Neck Neck: Yes supple Resp Effort & Inspection: able to speak in complete sentences Auscultation: crackles (at bases), no wheezes and diminished lung sounds Cardio Rhythm: regular rhythm Heart sounds: S1 normal heart sound present and S2 normal heart sound present GI Inspection: Yes normal to inspection Extrem General: Yes no clubbing, cyanosis or edema Coding Level of Care Code Est Pt Level 4 (25596) Complex EM visit Add On G2211 Diagnoses COPD (chronic obstructive pulmonary disease) J44.9 (HFpEF) heart failure with preserved ejection fraction I50.30 PAF (paroxysmal atrial fibrillation) I48.0 Assessment & Plan Assessment & Plan (1) COPD (chronic obstructive pulmonary disease): Comment: O2 dependent, Dr. Rhoades, started on Azithromycin QOD by pul 01/2024, ? Extrinsic asthma allergic to cats and dust, tried immunotherapy in the past, montelukast caused mood swings Code(s): J44.9 - Chronic obstructive pulmonary disease, unspecified Category: Medical Plan: Change Wixela to Trelegy (patient thinks her new insurance will cover Trelegy now, continue supplemental O2 and albuterol as needed (2) (HFpEF) heart failure with preserved ejection fraction: Comment: Echo 2019 EF 20%, nl coronary cath 2021, Echo 01/2024 increase left ventricle wall thickness, ejection fraction 65%, moderate MR, mild pulmonary hypertension, intolerant to Farxiga (weakness), ACEI discontinued by pulmonology Code(s): I50.30 - Unspecified diastolic (congestive) heart failure Category: Medical Plan: Continue furosemide follow-up with the Cardiology (3) PAF (paroxysmal atrial fibrillation): Comment: 10/13 Holter frequent APCs, s/p pacemaker for SSS, on Eliquis Code(s): I48.0 - Paroxysmal atrial fibrillation Category: Medical Plan: On Eliquis Orders: Referrals Pulmonology Referral J44.9 - Chronic obstructive pulmonary disease, unspecified Medications: New Trelegy Ellipta 200-62.5-25 mcg (fnrsqwxxjda-ikljroamy-wfvsucal) 1 inh inhalation DAILY 60 ea 1RF NS doxycycline hyclate 100 mg PO BID 14 tabs 0RF Discontinued Farxiga (dapagliflozin propanediol) Discontinued Reason: Doctor's Order 5 mg PO DAILY 90 tabs 1RF NS
[2024-09-02 11:14] VITALS: BP 106/68; PULSE 60; RESP 20; TEMP 36.4; O2SAT 90; BMI 22.1
== END 2024-09-02 12:18 | disposition home or self-care (01) ==
LOC: HO.HMCC 11:06
PROVIDERS: PCP Internal Medicine; Visit Provider Internal Medicine
DX: J44.9 Chronic obstructive pulmonary disease, unspecified (principal); I50.30 Unspecified diastolic (congestive) heart failure; I48.0 Paroxysmal atrial fibrillation

== ENCOUNTER 2024-09-06 09:02 | Outpatient (AMB) | payer MEDICARE, SELFPAY ==
--- NOTE | 2024-09-06 09:04 | MHC.PC.OV ---
Vital Signs 09/06/24 09:05 Height 5 ft Weight 113 lb BMI 22.1 BP 106/70 Blood Pressure Location Lt brachial Position Sitting Respiration 20 Pulse 104 H Pulse Source Pulse Oximeter Temp 97.6 F Temp Source Oral Pulse Oximetry (%) 93 Oxygen Delivery Method Room Air Intake Visit Reasons: 2 month follow up Intake Note: Pt is here today for a foloow up visit. Allergies gemifloxacin Allergy (Unknown, Verified 09/02/24 11:17) Rash montelukast [Singulair] Allergy (Unknown, Verified 09/02/24 11:17) mood swings Medication List - Last Reconciled 09/06/24 by Freida Yarbrough MD acetaminophen 650 mg PO Q6H PRN albuterol sulfate 0.63 mg (3 mL) inhalation Q4-6H PRN albuterol sulfate 90 mcg/actuation 2 puffs inhalation QID PRN apixaban (Eliquis) 5 mg PO BID calcium carbonate (Calcium 600) 600 mg PO BID cetirizine (Zyrtec) 10 mg PO DAILY doxycycline hyclate 100 mg PO BID ferrous sulfate 324 mg PO TUTHSA fluticasone propion-salmeterol 500-50 mcg/dose (Wixela Inhub) 1 inh inhalation BID fluticasone propionate 50 mcg/actuation (Flonase Allergy Relief) 1 spray intranasal DAILY fluticasone propionate 50 mcg/actuation 2 sprays intranasal BID furosemide 20 mg PO BID ipratropium-albuterol 0.5 mg-3 mg(2.5 mg base)/3 mL 3 mL inhalation Q8H levothyroxine 25 mcg PO DAILY@0600 magnesium 400 mg PO BEDTIME multivitamin (Daily Multi-Vitamin tablet) 1 tab PO DAILY omeprazole 20 mg PO DAILY peg 400-propylene glycol (PF) 0.4-0.3 % (Systane (PF)) 1 drp ophthalmic (eye) BID potassium chloride ER 20 mEq PO DAILY pravastatin 20 mg PO BEDTIME Trelegy Ellipta 200-62.5-25 mcg (pvutqjckgew-xlfocstbf-wucykmdw) 1 inh inhalation DAILY NS Tobacco use date assessed: 09/02/24 Dental Screening Dental Screen Date: 09/02/24 HPI 2 month follow up HPI Details Patient presents for the follow-up of sinusitis. She is feeling better, taking doxycycline and using Flonase nasal spray. COPD/asthma are stable. Patient will be starting Trelegy. She continues to use albuterol as needed and supplemental O2. patient has an appointment with new counter professional in October. [facility]LY [facility] Medical History Osteoporosis Cardiac pacemaker in situ HTN (hypertension) PAF (paroxysmal atrial fibrillation) COPD (chronic obstructive pulmonary disease) Chronic anticoagulation Renal failure Rhabdomyolysis Pneumonia Hyponatremia Hyperlipemia SSS (sick sinus syndrome) Meniere disease Sleep apnea Surgical History History of permanent cardiac pacemaker placement History of endoscopy History of hysterectomy History of cardiac cath Family History Father Lung cancer Mother COPD (chronic obstructive pulmonary disease) Social History Household Members: Spouse Housing: House Do you presently have visiting nurse or other home services: Yes (VNA and OT) Alcohol intake: never Patient Tobacco Use Status: Former Tobacco user Years Smoked: 30 +/- e-Cigarette/Vaping Use: Never Used Second Hand Smoke Exposure: No Advance Directives Date on File: 02/06/23 service: No Current occupational status: retired Cognitive needs: No Hearing needs: Yes Vision needs: Yes Questionnaire Thrive Questionnaire Date Thrive assessed: 09/06/24 YUDELKA-7 AMB Questionnaire YUDELKA-7 Date YUDELKA - 7 assessed: 07/25/23 Source: Developed by Drs. Jerry Munoz, Karishma Melgar, Joaquin Ariza and colleagues, with an educational gaby from [employer]. Review of Systems Const All systems reviewed & are unremarkable except as noted in HPI and below Eyes Reports no additional complaints Card Reports no additional complaints Resp Reports no additional complaints GI Reports no additional complaints Reports no additional complaints Physical exam (Primary Care) Vital Signs: Last Vital Signs Temp 97.6 F 09/06/24 09:05 Pulse 104 H 09/06/24 09:05 Resp 20 09/06/24 09:05 BP 106/70 09/06/24 09:05 Pulse Ox 93 09/06/24 09:05 Oxygen Delivery Method Room Air 09/06/24 09:05 BMI result Body Mass Index 22.1 Tobacco/Smoking Status: Tobacco use Status Tobacco use date assessed 09/02/24 09/06/24 09:14 Patient Tobacco Use Status Former Tobacco user 09/06/24 09:14 e-Cigarette/Vaping Use Never Used 09/06/24 09:14 Thrive Assessment: Date of Thrive Assessment Date Thrive assessed 09/06/24 09/06/24 09:14 Const General: no acute distress HENMT Throat: Yes posterior oropharynx normal Eyes General: appearance normal, both eyes and all related structures Resp Effort & Inspection: normal respiratory effort Auscultation: diminished lung sounds Cardio Rhythm: regular rhythm Heart sounds: S1 normal heart sound present and S2 normal heart sound present GI Inspection: Yes normal to inspection Palpation (GI): Soft to palpation Percussion: Yes normal to percussion Auscultation: normal bowel sounds Coding Level of Care Code Est Pt Level 4 (12660) Complex EM visit Add On G2211 Diagnoses (HFpEF) heart failure with preserved ejection fraction I50.30 COPD (chronic obstructive pulmonary disease) J44.9 SSS (sick sinus syndrome) I49.5 Assessment & Plan Assessment & Plan (1) (HFpEF) heart failure with preserved ejection fraction: Comment: Echo 2019 EF 20%, nl coronary cath 2021, Echo 01/2024 increase left ventricle wall thickness, ejection fraction 65%, moderate MR, mild pulmonary hypertension, intolerant to Farxiga (weakness), ACEI discontinued by pulmonology Code(s): I50.30 - Unspecified diastolic (congestive) heart failure Category: Medical Plan: Follow-up with the Cardiology continue current medications (2) COPD (chronic obstructive pulmonary disease): Comment: O2 dependent, Dr. Rhoades, started on Azithromycin QOD by pul 01/2024, ? Extrinsic asthma allergic to cats and dust, tried immunotherapy in the past, montelukast caused mood swings Code(s): J44.9 - Chronic obstructive pulmonary disease, unspecified Category: Medical Plan: Patient will be starting Trelegy continue albuterol as needed supplemental O2 follow-up with pulmonology (3) SSS (sick sinus syndrome): Comment: s/p replaced pacemaker 04/15 Code(s): I49.5 - Sick sinus syndrome Category: Medical Plan: Follow-up with the Cardiology Medications: Discontinued fluticasone propion-salmeterol 500-50 mcg/dose (Vanessa Inhub) Discontinued Reason: Doctor's Order 1 inh inhalation BID 180 ea 1RF
[2024-09-06 09:05] VITALS: BP 106/70; PULSE 104; RESP 20; TEMP 36.4; O2SAT 93; BMI 22.1
--- OUTSIDE RECORDS SUMMARY | 2024-09-06 09:26 | XMS_ITS | Clinical Summary ---
Author Organization [facility] ity Address [address] [place] [address] Care Team Providers Care Clinical Editor Name Role Phone Freida Yarbrough MD Primary Care Provider [phone] Surgical History Surgery Date Site/Laterality Comments OTHER SURGICAL HISTORY PROCEDURE: DENIES PREVIOUS SURGERY Medical History Medical History Date Comments Asthma DX:Asthma High blood pressure DX:High bloo d pressure COPD (chronic obstructive pu lmonary disease) ([facility]) DX:COPD (chronic obstructive pulmonary disease) ([facility]) Historical Medical DX DX:Emphyse ma Family [...] DTaP,Tdap,and Td Vaccines (1 - Tdap) 1964 Pneumococcal Vaccine: 50+ Years (1 of 1 [...] Procedure Name Priority Date/Time Associated Diagnosis Comments [facility] DEXA AXIAL SKELETON Routine 07/05/2021 3:14 PM EST Age-related osteoporosis without current pathological fracture from Last 3 Months or Most Recently Relevant to Health Maintenance Results * [facility] DEXA AXIAL SKELETON (07/05/2021 3:14 PM EST) Anatomical Region Laterality Modality Mammography 07/05/2021 10:2 7 AM EST Narrative 07/05/2021 3:14 PM [facility] Diagnostic Imaging Department [address] [place] [address] Patient: ??AYLIN RAMIREZ ?/Age/Sex: 1945 - 76 - F Unit#: ??[id number] ? Location/Status: ??SPDIMAM/REG CLI ? Mnemonic/Ordering Site: ??MAMDEXAAX/SPMAM Ordering Physician: ??MAYRA CUELLO MD [facility] Dexa Axial Skeleton - 07/05/21 - 1105 [facility] Dexa Axial Skeleton INDICATION: POSTMENOPAUSAL Technique: Bone [...] placing the patient at risk for fracture. [id number] Dictating Physician: ??YUNG BURNS MD Electronically Signed by: ??YUNG BURNS MD Dic Date/Time: ??07/05/211512 Sign date/Time: ??07/05/21 151 Procedure Note Yung Burns MD - 07/13/[address] [facility] Diagnostic Imaging Department [address] [place] [address] Patient: AYLIN RAMIREZ Lissette /Age/Sex: 1945 - 76 - F Unit#: [id number] Location/Status: SPDIMA/REG CLI Mnemonic/Ordering Site: [facility] Ordering Physician: MAYRA CUELLO MD [facility] Dexa Axial Skeleton - 07/05/21 - 1104 [facility] Dexa Axial Skeleton INDICATION: POSTMENOPAUSAL Technique: Bone [...] osteoporosis, placing the patient at risk forfracture. 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
== END 2024-09-06 09:39 | disposition home or self-care (01) ==
PROVIDERS: PCP Internal Medicine; Visit Provider Internal Medicine
DX: I50.30 Unspecified diastolic (congestive) heart failure (principal); J44.9 Chronic obstructive pulmonary disease, unspecified; I49.5 Sick sinus syndrome

== ENCOUNTER → 2024-09-06 09:02 | Outpatient (BNVA) | payer MEDICARE, SELFPAY | PROVIDERS: PCP Internal Medicine; Visit Provider Internal Medicine | DX: I50.30 Unspecified diastolic (congestive) heart failure (principal); J44.9 Chronic obstructive pulmonary disease, unspecified | CPT/HCPCS: 99212 ==

== ENCOUNTER 2024-10-04 11:34 | Outpatient (AMB) | payer MEDICARE, SELFPAY ==
[2024-10-04 12:10] VITALS: BP 106/70; PULSE 75; TEMP 36.4; O2SAT 90; BMI 21.9
--- NOTE | 2024-10-04 12:10 | MHC.PC.OV ---
Vital Signs 10/04/24 12:10 Height 5 ft Weight 112 lb BMI 21.9 BP 106/70 Blood Pressure Location Lt brachial Position Sitting Pulse 75 Pulse Source Pulse Oximeter Temp 97.6 F Temp Source Oral Pulse Oximetry (%) 90 L Oxygen Delivery Method Nasal Cannula Intake Visit Reasons: 1 months f/up Intake Note: pt is here for 1 mon f.up Web Content Developer Required: No Allergies gemifloxacin Allergy (Unknown, Verified 10/04/24 12:11) Rash montelukast [Singulair] Allergy (Unknown, Verified 10/04/24 12:11) mood swings Medication List - Last Reconciled 10/04/24 by Freida Yarbrough MD acetaminophen 650 mg PO Q6H PRN albuterol sulfate 0.63 mg (3 mL) inhalation Q4-6H PRN albuterol sulfate 90 mcg/actuation 2 puffs inhalation QID PRN apixaban (Eliquis) 5 mg PO BID calcium carbonate (Calcium 600) 600 mg PO BID cetirizine (Zyrtec) 10 mg PO DAILY ferrous sulfate 324 mg PO TUTHSA fluticasone propionate 50 mcg/actuation 2 sprays intranasal BID furosemide 20 mg PO BID levothyroxine 25 mcg PO DAILY@0600 magnesium 400 mg PO BEDTIME multivitamin (Daily Multi-Vitamin tablet) 1 tab PO DAILY omeprazole 20 mg PO DAILY peg 400-propylene glycol (PF) 0.4-0.3 % (Systane (PF)) 1 drp ophthalmic (eye) BID potassium chloride ER 20 mEq PO DAILY pravastatin 20 mg PO BEDTIME Trelegy Ellipta 200-62.5-25 mcg (vmbmliasljc-avajuvctf-xgbenbbh) 1 inh inhalation DAILY NS Tobacco use date assessed: 10/04/24 Fall risk assessment: No Falls in past year Last assessed Fall Risk: 10/04/24 Dental Screening Dental Screen Date: 09/02/24 HPI 1 months f/up HPI Details Patient presents for the follow-up of COPD paroxysmal AFib heart failure with preserved ejection fraction hyperlipidemia. Patient reports feeling better, less cough congestion or wheezing since started Trelegy. Patient reports persistent nasal congestion and has been using Flonase without significant improvement. She has been taking Zyrtec year-round. FORMERLY [facility] Medical History Osteoporosis Cardiac pacemaker in situ HTN (hypertension) PAF (paroxysmal atrial fibrillation) COPD (chronic obstructive pulmonary disease) Chronic anticoagulation Renal failure Rhabdomyolysis Pneumonia Hyponatremia Hyperlipemia SSS (sick sinus syndrome) Meniere disease Sleep apnea Surgical History History of permanent cardiac pacemaker placement History of endoscopy History of hysterectomy History of cardiac cath Family History Father Lung cancer Mother COPD (chronic obstructive pulmonary disease) Social History Household Members: Spouse Housing: House Do you presently have visiting nurse or other home services: Yes (VNA and OT) Alcohol intake: never Patient Tobacco Use Status: Former Tobacco user Years Smoked: 30 +/- e-Cigarette/Vaping Use: Never Used Second Hand Smoke Exposure: No Advance Directives Date on File: 02/06/23 service: No Current occupational status: retired Cognitive needs: No Hearing needs: Yes Vision needs: Yes Questionnaire PHQ-9 Over the last 2 weeks, how often have you been bothered by any of the following problems? 1. Little interest or pleasure in doing things: not at all 2. Feeling down, depressed, or hopeless: not at all 3. Trouble falling or staying asleep, or sleeping too much: not at all 4. Feeling tired or having little energy: not at all 5. Poor appetite or overeating: not at all 6. Feeling bad about yourself - or that you are a failure or have let yourself or your family down: not at all 7. Trouble concentrating on things, such as reading the newspaper or watching television: not at all 8. Moving or speaking so slowly that other people could have noticed. Or the opposite - being so fidgety or restless that you have been moving around a lot more than usual: not at all 9. Thoughts that you would be better off or of hurting yourself in some way: not at all Total score: 0 Depression Screening Interpretation: Negative Depression Screening Done: Yes 50849 - PHQ-9 Billing: Yes Source: Developed by Drs. Jerry Munoz, Karishma B.Joaquin Torres and colleagues, with an educational gaby from [employer]. Thrive Questionnaire Date Thrive assessed: 09/06/24 YUDELKA-7 AMB Questionnaire YUDELKA-7 Date YUDELKA - 7 assessed: 10/04/24 Feeling nervous, anxious, or on edge: 0 = Not at all Not being able to stop or control worryin = Not at all Worrying too much about different things: 0 = Not at all Trouble relaxin = Not at all Being so restless that it is hard to sit still: 0 = Not at all Becoming easily annoyed or irritable: 0 = Not at all Feeling afraid as if something awful might happen: 0 = Not at all Total YUDELKA-7 score (0-4 normal; 5-9 mild; 10-14 moderate; 15-21 severe): 0 Source: Developed by Drs. Jerry Munoz, Joaquin Langston and colleagues, with an educational gaby from [employer]. YUDELKA-7 Assessment Billing YUDELKA-7 Assessment Tool: YUDELKA-7 Assessment 30538 Review of Systems Const All systems reviewed & are unremarkable except as noted in HPI and below ENT Reports no additional complaints Card Reports no additional complaints Resp Reports no additional complaints GI Reports no additional complaints Reports no additional complaints Physical exam (Primary Care) Vital Signs: Last Vital Signs Temp 97.6 F 10/04/24 12:10 Pulse 75 10/04/24 12:10 BP 106/70 10/04/24 12:10 Pulse Ox 90 L 10/04/24 12:10 Oxygen Delivery Method Nasal Cannula 10/04/24 12:10 BMI result Body Mass Index 21.9 Tobacco/Smoking Status: Tobacco use Status Tobacco use date assessed 10/04/24 10/04/24 12:13 Patient Tobacco Use Status Former Tobacco user 10/04/24 12:13 e-Cigarette/Vaping Use Never Used 10/04/24 12:13 PHQ-9: PHQ-9 Score PHQ-9: Total score 0 10/04/24 12:13 Depression Screening Interpretation: Negative Thrive Assessment: Date of Thrive Assessment Date Thrive assessed 09/06/24 10/04/24 12:13 Const General: no acute distress HENMT Head: Yes normal to inspection Resp Effort & Inspection: normal respiratory effort Auscultation: crackles bilateral and diminished lung sounds Cardio Rhythm: regular rhythm Heart sounds: S1 normal heart sound present and S2 normal heart sound present GI Inspection: Yes normal to inspection Palpation (GI): Soft to palpation Extrem General: Yes no clubbing, cyanosis or edema Coding Level of Care Code Est Pt Level 4 (51336) Complex EM visit Add On G2211 Diagnoses (HFpEF) heart failure with preserved ejection fraction I50.30 PAF (paroxysmal atrial fibrillation) I48.0 COPD (chronic obstructive pulmonary disease) J44.9 Additional Codes YUDELKA-7 Assessment Billing - YUDELKA-7 Assessment Tool: YUDELKA-7 Assessment 12790 ([id number]) PHQ-9 - 35563 - PHQ-9 Billing: Yes ([id number]) Assessment & Plan Assessment & Plan (1) (HFpEF) heart failure with preserved ejection fraction: Comment: Echo 2019 EF 20%, nl coronary cath 2021, Echo 01/2024 increase left ventricle wall thickness, ejection fraction 65%, moderate MR, mild pulmonary hypertension, intolerant to Farxiga (weakness), ACEI discontinued by pulmonology Code(s): I50.30 - Unspecified diastolic (congestive) heart failure Category: Medical Plan: Continue furosemide (2) PAF (paroxysmal atrial fibrillation): Comment: 10/13 Holter frequent APCs, s/p pacemaker for SSS, on Eliquis Code(s): I48.0 - Paroxysmal atrial fibrillation Category: Medical Plan: Continue Eliquis (3) COPD (chronic obstructive pulmonary disease): Comment: O2 dependent, Dr. Rhoades, started on Azithromycin QOD by pul 01/2024, ? Extrinsic asthma allergic to cats and dust, tried immunotherapy in the past, montelukast caused mood swings Code(s): J44.9 - Chronic obstructive pulmonary disease, unspecified Category: Medical Plan: Continue Trelegy albuterol as needed and supplemental O2. Patient has an appointment with new therapist's assistant next month. Add azelastine nasal spray for nasal congestion Medications: New azelastine administer into each nostril 2 sprays intranasal BID 30 mL 4RF
--- OUTSIDE RECORDS SUMMARY | 2024-10-04 13:24 | XMS_ITS | Clinical Summary ---
Author Organization [facility] it Address [address] [place] [address] Care Team Providers Care Oxygen Therapist Name Role Phone Freida Yarbrough MD Primary Care Provider [phone] Surgical History Surgery Date Site/Laterality Comments OTHER SURGICAL HISTORY PROCEDURE: DENIES PREVIOUS SURGERY Medical History Medical History Date Comments Asthma DX:Asthma High blood pressure DX:High bloo d pressure COPD (chronic obstructive pu lmonary disease) ([facility]) DX:COPD (chronic obstructive pulmonary disease) ([facility]) Historical Medical DX DX:Emphyse ma [...] Procedure Name Priority Date/Time Associated Diagnosis Comments [facility] DEXA AXIAL SKELETON Routine 07/05/2021 3:14 PM EST Age-related osteoporosis without current pathological fracture from Last 3 Months or Most Recently Relevant to Health Maintenance Results * [facility] DEXA AXIAL SKELETON (07/05/2021 3:14 PM EST) Anatomical Region Laterality Modality Mammography 07/05/2021 10:2 7 AM EST Narrative 07/05/2021 3:14 PM [facility] Diagnostic Imaging Department [address] [place] [address] Patient: ??AYLIN RAMIREZ ?/Age/Sex: 1945 - 76 - F Unit#: ??[id number] ? Location/Status: ??SPDIMAM/REG CLI ? Mnemonic/Ordering Site: ??MAMDEXAAX/SPMAM Ordering Physician: ??MAYRA CUELLO MD [facility] Dexa Axial Skeleton - 07/05/21 - 1105 [facility] Dexa Axial Skeleton INDICATION: POSTMENOPAUSAL Technique: [...] placing the patient at risk for fracture. [id number] Dictating Physician: ??YUNG BURNS MD Electronically Signed by: ??YUNG BURNS MD Dic Date/Time: ??07/05/211512 Sign date/Time: ??07/05/21 151 Procedure Note Yung Burns MD - 07/13/2022 [facility] Diagnostic Imaging Department [address] [place] [address] Patient: AYLIN RAMIREZ Lissette /Age/Sex: 1945 - 76 - F Unit#: [id number] Location/Status: SPDIMA/REG CLI Mnemonic/Ordering Site: [facility] Ordering Physician: MAYRA CUELLO MD [facility] Dexa Axial Skeleton - 07/05/21 - 1104 [facility] Dexa Axial Skeleton INDICATION: POSTMENOPAUSAL Technique: [...] osteoporosis, placing the patient at risk forfracture. 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
--- OUTSIDE RECORDS SUMMARY | 2024-10-04 13:24 | XMS_ITS ---
Author Organization [facility] Care Team Providers Care Field Scout Name Role Phone Gilberto Carver Unavailable Unavailable Lola Ott Unavailable Unavailable Dulce Degroot Unavailable Unavailable Allergies and adverse reactions Code CodeSystem Substance Reaction Severity StartDate Concern Status 49734 RXNORM Montelukast Itching of skin (code- [id number], SNOMED CT) Moderate 03/21/2023 active Care Team Name Role Address Phone Organization Dates Gilberto Carver PCP [address], [address], [facility] (Office): : [facility] 03/21/2023 - 04/06/2023 Lola Ott Attending Physician [address], [address], [facility] (Office): : [facility] 03/21/2023 - 04/06/2023 Dulce Degroot Attending Physician [address] [place] [address], [address], [facility] (Office): [facility] 03/21/2023 - 04/06/2023 Mental Status Section Date Assessment Total Score Description 04/06/2023 BIMS 15 cognitively int act CAM 0 No delirium ind icated PHQ-9 05 mild depression 03/28/2023 BIMS 15 cognitively int act CAM 0 No delirium ind icated PHQ-9 06 mild depression Problems Problem # Description Date of onset Resolved Date Code CodeSystem Concern Status 1 ACUTE AND CHRONIC RESPIRATORY FAILURE, UNSPECIFIED WHETHER WITH HYPOXIA OR HYPERCAPNIA 03/21/[address] active 2 AGE-RELATED OSTEOPOROSIS WITHOUT CURRENT PATHOLOGICAL FRACTURE 03/21/[address] active 3 CHRONIC OBSTRUCTIVE PULMONARY DISEASE, UNSPECIFIED 03/21/[address] active 4 ESSENTIAL (PRIMARY) HYPERTENSION 03/21/[address] active 5 HEART FAILURE, UNSPECIFIED 03/21/[address] active 6 HYPERLIPIDEMIA, UNSPECIFIED 03/21/[address] active 7 MENIERE'S DISEASE, UNSPECIFIED EAR 03/21/[address] active 8 MUSCLE WASTING AND ATROPHY, NOT ELSEWHERE CLASSIFIED, MULTIPLE SITES 03/21/[address] active 9 PERIPHERAL VASCULAR DISEASE, UNSPECIFIED 03/21/[address] active 10 PNEUMONIA, UNSPECIFIED ORGANISM 03/21/[address] active 11 PRESENCE OF CARDIAC PACEMAKER 03/21/[address] active 12 SICK SINUS SYNDROME 03/21/[address] active 13 UNSPECIFIED PROTEIN-CALORIE MALNUTRITION 03/21/[address] active Reason for Referral No Reasons for Referral Entered Social History Social History Observation Description Start Date End Date Code Code System Current Smoking Status Tobacco smoking consumption unknown 837989791 SNOMED CT Sex Assigned At Female 1945 15089-3 [facility] Vital Signs Code Code System Vitals Name Values and Units Timing Information 99030-4 [facility] O2 % BldC Oximetry Value=93.0 Units= % 04/06/2023 9279-1 [facility] Respiratory Rate Value=18.0 Units=/m in 04/06/2023 8462-4 [facility] Blood Pressure-Diastolic Value=71 Un its=mmHg 04/06/2023 8480-6 [facility] Blood Pressure-Systolic Gohqa=545 Un its=mmHg 04/06/2023 8310-5 [facility] Body Temperature Value=97.9 Units=?? F 04/06/2023 8867-4 [facility] Heart rate Value=67.0 Units=/min 44745-6 [facility] Weight Bkroq=625.4 Units=Lbs 71374-7 [facility] Pain Level Value=0.0 04/06/2023 8302-2 [facility] Height Value=61.0 Units=Inches 03/22/2023
== END 2024-10-04 13:52 | disposition home or self-care (01) ==
LOC: HO.HMCC 11:35
PROVIDERS: PCP Internal Medicine; Visit Provider Internal Medicine
DX: I50.30 Unspecified diastolic (congestive) heart failure (principal); I48.0 Paroxysmal atrial fibrillation; J44.9 Chronic obstructive pulmonary disease, unspecified

== ENCOUNTER → 2024-10-04 11:34 | Outpatient (BNVA) | payer MEDICARE, SELFPAY | PROVIDERS: PCP Internal Medicine; Visit Provider Internal Medicine | DX: I50.30 Unspecified diastolic (congestive) heart failure (principal); I48.0 Paroxysmal atrial fibrillation; J44.9 Chronic obstructive pulmonary disease, unspecified | CPT/HCPCS: 96127; 99212 ==

== ENCOUNTER 2024-10-29 13:07 | Outpatient (REF) | payer MEDICARE, SELFPAY ==
--- NOTE | ~2024-10-29 | XR_ITS ---
EXAMINATION: XR CHEST 2 VIEWS HISTORY: J18.0 - Bronchopneumonia, unspecified organism COMPARISON: Comparison is made with the prior examination dated 05/23/2023. FINDINGS: PA and lateral views of the chest are submitted. A left-sided dual-chamber pacemaker is unchanged in position. There are emphysematous changes. There are no focal airspace opacities. There is no pleural effusion, pneumothorax, or pulmonary vascular congestion. The heart is enlarged. The aorta is calcified. There is enlargement of the pulmonary arteries suggestive of pulmonary arterial hypertension. There is degenerative disc disease of the spine. XR/XR chest 2V IMPRESSION: Cardiomegaly and findings suggestive of pulmonary arterial hypertension without change. COPD. No acute cardiopulmonary abnormality. Electronically signed by: Jerry Giordano MD 10/29/2024 03:07 PM EDT
--- OUTSIDE RECORDS SUMMARY | 2024-10-29 17:20 | XMS_ITS | Clinical Summary ---
Author Organization [facility] ity Address [address] [place] [address] Care Team Providers Care Undergraduate Internship Name Role Phone Freida Yarbrough MD Primary Care Provider [phone] Surgical History Surgery Date Site/Laterality Comments OTHER SURGICAL HISTORY PROCEDURE: DENIES PREVIOUS SURGERY Medical History Medical History Date Comments Asthma DX:Asthma High blood pressure DX:High bloo d pressure COPD (chronic obstructive pu lmonary disease) ([facility]) DX:COPD (chronic obstructive pulmonary disease) ([facility]) Historical Medical DX DX:Emphyse [...] Name Priority Date/Time Associated Diagnosis Comments [facility] DEXA AXIAL SKELETON Routine 07/05/2021 3:14 PM EST Age-related osteoporosis without current pathological fracture from Last 3 Months or Most Recently Relevant to Health Maintenance Results * [facility] DEXA AXIAL SKELETON (07/05/2021 3:14 PM EST) Anatomical Region Laterality Modality Mammography 07/05/2021 10:2 7 AM EST Narrative 07/05/2021 3:14 PM EST [facility] Diagnostic Imaging Department [address] [place] [id number] Patient: ??AYLIN RAMIREZ ?/Age/Sex: 1945 - 76 - F Unit#: ??[id number] ? Location/Status: ??SPDIMAM/REG CLI ? Mnemonic/Ordering Site: ??MAMDEXAAX/SPMAM Ordering Physician: ??MAYRA CUELLO MD [facility] Dexa Axial Skeleton - 07/05/21 - 1105 [facility] Dexa Axial Skeleton INDICATION: POSTMENOPAUSAL Technique: [...] placing the patient at risk for fracture. [id number] Dictating Physician: ??YUNG BURNS MD Electronically Signed by: ??YUNG BURNS MD Dic Date/Time: ??07/05/21 1513 Sign date/Time: ??07/05/211513 Procedure Note Yung Burns MD - 07/13/2022 [facility] Diagnostic Imaging Department [address] [place] [address] Patient: AYLIN RAMIREZ /Age/Sex: 1945 - 76 - F Unit#: [id number] [facility]Ordering Site: [facility] Ordering Physician: MAYRA CUELLO MD [facility] Dexa Axial Skeleton - 07/05/21 - 1105 [facility] Dexa Axial Skeleton INDICATION: POSTMENOPAUSAL Technique: [...] osteoporosis, placing the patient at risk forfracture. 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
== END 2024-10-29 13:08 | disposition home or self-care (01) ==
LOC: HO.XRAY 13:07
PROVIDERS: PCP Internal Medicine; Visit Provider Hospitalist
DX: J18.0 Bronchopneumonia, unspecified organism (principal); J41.8 Mixed simple and mucopurulent chronic bronchitis; J96.11 Chronic respiratory failure with hypoxia
CPT/HCPCS: 71046; 99202

== ENCOUNTER 2024-10-29 13:07 | Outpatient (AMB) | payer MEDICARE, SELFPAY ==
[2024-10-29 13:17] VITALS: BP 110/62; PULSE 67; O2SAT 88; BMI 22.2
--- NOTE | 2024-10-29 13:17 | A.OFFVIS_ITS ---
Vital Signs 10/29/24 13:17 Height 5 ft Weight 113 lb 8.609 oz BMI 22.2 BP 110/62 Blood Pressure Location Rt brachial Position Sitting Pulse 67 Pulse Source Pulse Oximeter Pulse Oximetry (%) 88 L Oxygen Delivery Method Nasal Cannula Oxygen Flow Rate 4 Intake Visit Reasons: copd Allergies gemifloxacin Allergy (Unknown, Verified 10/29/24 13:23) Rash montelukast [Singulair] Allergy (Unknown, Verified 10/29/24 13:23) mood swings HPI Comments Details: The patient is here for pulmonary evaluation. The patient is an 79 year woman no COPD and also heart disease with chronic respiratory failure on oxygen will was already established with the [facility] penology teacher but now she is looking to transitioning her care to [place]. The patient already is on adequate therapy for COPD with Fab. She also uses a portable oxygen concentrator 24 hours a day. She does have a concentrator at home. When she is out and about she does use about 5-6 L pulse and when she is at home she is able to be on the concentrator continuous around 3-4 L. lately though she has been on more oxygen that she has been having more chest congestion and bronchitis. She has had pneumonia in the past. She had a CT scan back in 2022 when she had been the hospital bilateral pneumonia. We did review her CT scan demonstrating emphysematous changes and significant nodular like airspace disease. He has had additional imaging studies but he has been a [place] and we do not have access to those. Her last chest x-ray also was from 2022. We did go for brief walking oximetry the patient did desaturate down to the 70s on her pulse device. Therefore we switched her over to continuous 4 L continues right now and she is going to go get an x-ray. She does have some crackles in the right base suggesting the possibility of bronchopneumonia. Likely worsening her gas exchange she did have a blood gas in the past demonstrating normal pCO2. At some point when she is better were able to check her blood gas again to see if he has any evidence of any chronic hypercapnia. The patient also will provide us with a sputum culture if the antibiotics are not helpful in improving her chest congestion. She already has a nebulizer although she is not using it she is going to restart using it for chest PT and will provide her with an Acapella valve for better mucus clearance and bronchopulmonary hygiene. [facility] Medical History (Updated 10/29/24 @ 20:26 by Lefty Tapia MD) Chronic respiratory failure Bronchopneumonia Osteoporosis Cardiac pacemaker in situ HTN (hypertension) PAF (paroxysmal atrial fibrillation) COPD (chronic obstructive pulmonary disease) Chronic anticoagulation Renal failure Rhabdomyolysis Pneumonia Hyponatremia Hyperlipemia SSS (sick sinus syndrome) Meniere disease Sleep apnea Surgical History History of permanent cardiac pacemaker placement History of endoscopy History of hysterectomy History of cardiac cath Family History Father Lung cancer Mother COPD (chronic obstructive pulmonary disease) Social History Household Members: Spouse Housing: House Do you presently have visiting nurse or other home services: Yes (VNA and OT) Alcohol intake: never Patient Tobacco Use Status: Former Tobacco user Years Smoked: 30 +/- e-Cigarette/Vaping Use: Never Used Second Hand Smoke Exposure: No Advance Directives Date on File: 02/06/23 service: No Current occupational status: retired Cognitive needs: No Hearing needs: Yes Vision needs: Yes Review of Systems Const Reports fatigue and Denies fever(s) ENT Denies nasal obstruction Card Denies chest pain, Reports dyspnea and Reports dyspnea on exertion Resp Reports chest congestion, Reports cough, Reports dyspnea, Reports dyspnea on exertion and Reports wheezing GI Reports no additional complaints Musc Reports abnormal gait, Reports back pain and Reports myalgias Skin/Breast Denies rash Neuro Reports abnormal gait Endo Reports fatigue Suresh/Lymph Denies easy bleeding Aller/Immun Reports wheezing Physical Exam Vital Signs: Last Vital Signs Pulse 67 10/29/24 13:17 BP 110/62 10/29/24 13:17 Pulse Ox 88 L 10/29/24 13:17 Oxygen Delivery Method Nasal Cannula 10/29/24 13:17 Oxygen Flow Rate 4 10/29/24 13:17 BMI result Body Mass Index 22.2 Const General: comfortable and tired appearing HEENT Head: Yes normocephalic Neck Neck: Yes supple Chest Chest palpation & inspection: normal inspection of the chest Resp Effort & Inspection: normal respiratory effort and prolonged expiratory phase Auscultation: rhonchi and diminished lung sounds Cardio Heart sounds: S1 normal heart sound present and S2 normal heart sound present GI Palpation (GI): Soft to palpation Skin General skin exam: no rashes or lesions noted Extrem General: Yes cyanosis Results Reviewed Results Reviewed: personally reviewed CXR 2022 with increase cardiac size and PM, CT chest 2022 with bibasilar pneumonia and emphysema Assessment & Plan Assessment & Plan (1) Bronchopneumonia: Code(s): J18.0 - Bronchopneumonia, unspecified organism Category: Medical (2) COPD (chronic obstructive pulmonary disease): Comment: O2 dependent, Dr. Rhoades, started on Azithromycin QOD by pul 01/2024, ? Extrinsic asthma allergic to cats and dust, tried immunotherapy in the past, montelukast caused mood swings Code(s): J44.9 - Chronic obstructive pulmonary disease, unspecified Category: Medical Qualifiers: COPD type: chronic bronchitis Chronic bronchitis type: mixed simple and mucopurulent Qualified Code(s): J41.8 - Mixed simple and mucopurulent chronic bronchitis (3) Chronic respiratory failure: Code(s): J96.10 - Chronic respiratory failure, unspecified whether with hypoxia or hypercapnia Category: Medical Qualifiers: Respiratory failure complication: hypoxia Qualified Code(s): J96.11 - Chronic respiratory failure with hypoxia Plan continue Trelegy ANAIS as needed Nebulizer 2 times aday followed by acapella valve for CPT CXR-no evidence of pneumonia Labs Sputum culture start Doxycycline BID x 14 days Continue oxygen, does not seem to respond well to conserving device F/U 2 months Orders: Orders 2 XR chest 2V Today J18.0 - Bronchopneumonia, unspecified organism Coding Level of Care Code New Pt Level 5 (06730) Diagnoses Bronchopneumonia J18.0 Mixed simple and mucopurulent chronic bronchitis J41.8 COPD type: chronic bronchitis Chronic bronchitis type: mixed simple and mucopurulent Chronic respiratory failure with hypoxia J96.11 Respiratory failure complication: hypoxia Time Spent (min) 60
--- OUTSIDE RECORDS SUMMARY | 2024-10-29 16:00 | XMS_ITS | Clinical Summary ---
Author Organization [facility] ity Address [address] [place] [address] Care Team Providers Care Boiler Testing Technician Name Role Phone Freida Yarbrough MD Primary Care Provider [phone] Surgical History Surgery Date Site/Laterality Comments OTHER SURGICAL HISTORY PROCEDURE: DENIES PREVIOUS SURGERY Medical History Medical History Date Comments Asthma DX:Asthma High blood pressure DX:High bloo d pressure COPD (chronic obstructive pu lmonary disease) ([facility]) DX:COPD (chronic obstructive pulmonary disease) ([facility]) Historical Medical DX DX:Emphyse ma [...] Vaccines (1 of 2) 1994 RSV Immunization Adult Patients (1 - 1-dose 75+ series) 2019 Cholesterol [...] age to complete this topic Meningococcal B Vaccine Aged Out No l onger eligible based on patient's age to complete this topic RSV Immunization Patients Under 20 months Aged Out No longer eligible b ased on patient's age to complete this topic Varicella Vaccines Aged Out No longer eligible based on patient's age to complete this topic Procedures Procedure Name Priority Date/Time Associated Diagnosis Comments [facility] DEXA AXIAL SKELETON Routine 07/05/2021 3:14 PM EST Age-related osteoporosis without current pathological fracture from Last 3 Months or Most Recently Relevant to Health Maintenance Results * [facility] DEXA AXIAL SKELETON (07/05/2021 3:14 PM EST) Anatomical Region Laterality Modality Mammography 07/05/2021 10:2 7 AM EST Narrative 07/05/2021 3:14 PM EST [facility] Diagnostic Imaging Department [address] [place] [id number] Patient: ??AYLIN RAMIREZ ?/Age/Sex: 1945 - 76 - F Unit#: ??[id number] ? Location/Status: ??SPDIMAM/REG CLI ? Mnemonic/Ordering Site: ??MAMDEXAAX/SPMAM Ordering Physician: ??MAYRA CUELLO MD [facility] [place] [facility]ial Skeleton - 07/05/21 - 1105 [facility] [place] [facility]ial [facility] INDICATION: POSTMENOPAUSAL Technique: Bone [...] placing the patient at risk for fracture. [id number] Dictating Physician: ??YUNG BURNS MD Electronically Signed by: ??YUNG BURNS MD Dic Date/Time: ??07/05/21 1513 Sign date/Time: ??07/05/211513 Procedure Note Yung Burns MD - 07/13/2022 [facility] Diagnostic Imaging Department [address] [place] [address] Patient: AYLIN RAMIREZ /Age/Sex: 1945 - 76 - F Unit#: [id number] [facility] Mnemonic/Ordering Site: [facility] Ordering Physician: MAYRA CUELLO MD [facility] [place] Dexa Axial Skeleton - 07/05/21 - 1105 [facility] [place] [facility] Axial Skeleton INDICATION: POSTMENOPAUSAL Technique: Bone [...] osteoporosis, placing the patient at risk forfracture. [id number] Dictating Physician: YUNG BURNS MD Electronically Signed by: YUNG BURNS MD Dic Date/Time: 07/05/211512 Sign date/Time: 12/13/21 1514 us Mayra Cuello MD IMG BI PROCEDURES Final Res ult from Last 3 Months or Most Recently Relevant to Health Maintenance Advance Directives Documents on File Type Date Recorded Patient Ict Sales Assistant Expl anation Health Care Decision (hx) 08/29/2012 [...] (hx) 08/29/2012 AD GARDNER DIRECTIVE Care Teams Boiler Testing Technician Relationship Specialty Start Date End Date Freida Yarbrough MD PCP - General Internal Medicine 1945
== END 2024-10-29 14:08 | disposition home or self-care (01) ==
LOC: HO.HPS 13:08
PROVIDERS: PCP Internal Medicine; Visit Provider Hospitalist
DX: J18.0 Bronchopneumonia, unspecified organism (principal); J41.8 Mixed simple and mucopurulent chronic bronchitis; J96.11 Chronic respiratory failure with hypoxia
CPT/HCPCS: 99205

== ENCOUNTER → 2024-10-29 14:19 | Outpatient (BNV) | payer MEDICARE, SELFPAY | PROVIDERS: PCP Internal Medicine; Visit Provider Radiology Diagnostic Radiology | DX: J18.0 Bronchopneumonia, unspecified organism (principal) | CPT/HCPCS: 71046 ==

== ENCOUNTER 2024-11-22 09:52 | Outpatient (AMB) | payer MEDICARE, SELFPAY ==
[2024-11-22 10:05] VITALS: BP 132/68; PULSE 64; RESP 20; O2SAT 90; BMI 21.5
--- NOTE | 2024-11-22 10:05 | A.OFFPC_ITS ---
Vital Signs 11/22/24 10:05 Height 5 ft Weight 110 lb BMI 21.5 BP 132/68 Blood Pressure Location Lt brachial Position Sitting Respiration 20 Pulse 64 Pulse Source Pulse Oximeter Pulse Oximetry (%) 90 L Oxygen Delivery Method Room Air Intake Visit Reasons: 2 m follow up, reschedule Intake Note: Pt is here today for a follow up visit. Allergies gemifloxacin Allergy (Unknown, Verified 11/22/24 10:18) Rash montelukast [Singulair] Allergy (Unknown, Verified 11/22/24 10:18) mood swings ARB-Angiotensin Receptor Antagonist Adverse Reaction (Intermediate, Verified 11/22/24 11:38) Cough dapagliflozin [From [facility]] Adverse Reaction (Intermediate, Verified 11/22/24 11:36) polyuria lisinopril Adverse Reaction (Intermediate, Verified 11/22/24 11:38) Cough Medication List - Last Reconciled 11/22/24 by Freida Yarbrough MD acetaminophen 650 mg PO Q6H PRN albuterol sulfate 0.63 mg (3 mL) inhalation Q4-6H PRN albuterol sulfate 90 mcg/actuation 2 puffs inhalation QID PRN apixaban (Eliquis) 5 mg PO BID azelastine 2 sprays intranasal BID calcium carbonate (Calcium 600) 600 mg PO BID cetirizine (Zyrtec) 10 mg PO DAILY ferrous sulfate 324 mg PO TUTHSA furosemide 20 mg PO BID levothyroxine 25 mcg PO DAILY@0600 magnesium 400 mg PO BEDTIME multivitamin (Daily Multi-Vitamin tablet) 1 tab PO DAILY omeprazole 20 mg PO DAILY peg 400-propylene glycol (PF) 0.4-0.3 % (Systane (PF)) 1 drp ophthalmic (eye) BID potassium chloride ER 20 mEq PO DAILY pravastatin 20 mg PO BEDTIME Trelegy Ellipta 200-62.5-25 mcg (xbzvdqnrlfv-hczqenrgj-ulkpefcv) 1 inh inhalation DAILY 30 days NS Tobacco use date assessed: 10/04/24 Fall risk assessment: No Falls in past year Last assessed Fall Risk: 11/22/24 Dental Screening Dental Screen Date: 09/02/24 HPI 2 m follow up, reschedule HPI Details Patient presents for the follow-up of COPD O2 dependent, hypothyroidism, heart failure with preserved ejection fraction, hypertension hyperlipidemia stable on current medications. PFSH Medical History Chronic respiratory failure Bronchopneumonia Osteoporosis Cardiac pacemaker in situ HTN (hypertension) PAF (paroxysmal atrial fibrillation) COPD (chronic obstructive pulmonary disease) Chronic anticoagulation Renal failure Rhabdomyolysis Pneumonia Hyponatremia Hyperlipemia SSS (sick sinus syndrome) Meniere disease Sleep apnea Surgical History History of permanent cardiac pacemaker placement History of endoscopy History of hysterectomy History of cardiac cath Family History Father Lung cancer Mother COPD (chronic obstructive pulmonary disease) Social History Household Members: Spouse Housing: House Do you presently have visiting nurse or other home services: Yes (VNA and OT) Alcohol intake: never Patient Tobacco Use Status: Former Tobacco user Years Smoked: 30 +/- e-Cigarette/Vaping Use: Never Used Second Hand Smoke Exposure: No Advance Directives Date on File: 02/06/23 service: No Current occupational status: retired Cognitive needs: No Hearing needs: Yes Vision needs: Yes Questionnaire PHQ-9 Over the last 2 weeks, how often have you been bothered by any of the following problems? 7. Trouble concentrating on things, such as reading the newspaper or watching television: not at all 8. Moving or speaking so slowly that other people could have noticed. Or the opposite - being so fidgety or restless that you have been moving around a lot more than usual: not at all 9. Thoughts that you would be better off or of hurting yourself in some way: not at all Source: Developed by Drs. Jerry Munoz, Karishma Melgar, Joaquin Ariza and colleagues, with an educational gaby from [employer]. Thrive Questionnaire Date Thrive assessed: 11/22/24 I am a: Patient What is your living situation today?: I have a steady place to live Within the past 12 months, did the food you bought not last and you didn't have the money to get more?: Often true Within the past 12 months, did you worry whether your food would run out before you got money to buy more?: I choose not to answer this question Do you have trouble paying for medicines?: I choose not to answer this question Do you have trouble getting transportation to medical appointments?: I choose not to answer this question Do you have trouble paying your heating and electricity bill?: I choose not to answer this question Do you have trouble taking care of your child, family member or friend?: I choose not to answer this question Do you have trouble with day-to-day activities such as bathing, preparing meals, shopping, managing finances, etc.?: I choose not to answer this question Are you currently unemployed and looking for a job?: I choose not to answer this question Are you interested in more education?: I choose not to answer this question Please select the resources that you would like help with: None Currently or been in a relationship where the following occur: I choose not to answer THRIVE Score: 1 AUDIT C Alcohol Use Questionnaire (AUDIT-C) 1. How often do you have a drink containing alcohol?: Never Total Score: 0 YUDELKA-7 AMB Questionnaire YUDELKA-7 Date YUDELKA - 7 assessed: 10/04/24 Feeling nervous, anxious, or on edge: 0 = Not at all Not being able to stop or control worryin = Not at all Worrying too much about different things: 0 = Not at all Trouble relaxin = Not at all Being so restless that it is hard to sit still: 0 = Not at all Becoming easily annoyed or irritable: 0 = Not at all Feeling afraid as if something awful might happen: 0 = Not at all Total YUDELKA-7 score (0-4 normal; 5-9 mild; 10-14 moderate; 15-21 severe): 0 Source: Developed by Drs. Jerry Munoz, Karishma Melgar, Joaquin Ariza and colleagues, with an educational gaby from [employer]. Review of Systems Const All systems reviewed & are unremarkable except as noted in HPI and below Eyes Reports no additional complaints ENT Reports no additional complaints Card Reports no additional complaints Resp Reports no additional complaints GI Reports no additional complaints Reports no additional complaints Physical exam (Primary Care) Vital Signs: Last Vital Signs Pulse 64 11/22/24 10:05 Resp 20 11/22/24 10:05 BP 132/68 11/22/24 10:05 Pulse Ox 90 L 11/22/24 10:05 Oxygen Delivery Method Room Air 11/22/24 10:05 BMI result Body Mass Index 21.5 Tobacco/Smoking Status: Tobacco use Status Tobacco use date assessed 10/04/24 11/22/24 10:05 Patient Tobacco Use Status Former Tobacco user 11/22/24 10:05 e-Cigarette/Vaping Use Never Used 11/22/24 10:05 Thrive Assessment: Date of Thrive Assessment Date Thrive assessed 11/22/24 11/22/24 10:05 Currently or been in a relationship where the following occur: I choose not to answer Const General: no acute distress HENMT Head: Yes normal to inspection Face and sinus: Yes normal facial exam Eyes General: appearance normal, both eyes and all related structures Neck Neck: Yes no lymphadenopathy and Yes supple Resp Effort & Inspection: normal respiratory effort Auscultation: crackles and diminished lung sounds Cardio Rhythm: regular rhythm Heart sounds: S1 normal heart sound present and S2 normal heart sound present GI Inspection: Yes normal to inspection Palpation (GI): Soft to palpation Percussion: Yes normal to percussion Auscultation: normal bowel sounds Coding Level of Care Code Est Pt Level 4 (26342) Diagnoses Mixed simple and mucopurulent chronic bronchitis J41.8 COPD type: chronic bronchitis Chronic bronchitis type: mixed simple and mucopurulent PAF (paroxysmal atrial fibrillation) I48.0 Vitamin D deficiency E55.9 (HFpEF) heart failure with preserved ejection fraction I50.30 Assessment & Plan Assessment & Plan (1) COPD (chronic obstructive pulmonary disease): Comment: O2 dependent up to 5 l NC with exertion, Dr. Rhoades, started on Azithromycin QOD by pul 01/2024, ? Extrinsic asthma allergic to cats and dust, tried immunotherapy in the past, montelukast caused mood swings Code(s): J44.9 - Chronic obstructive pulmonary disease, unspecified Category: Medical Qualifiers: COPD type: chronic bronchitis Chronic bronchitis type: mixed simple and mucopurulent Qualified Code(s): J41.8 - Mixed simple and mucopurulent chronic bronchitis Plan: Continue Trelegy albuterol updraft and supplemental O2 follow-up with pulmonology (2) PAF (paroxysmal atrial fibrillation): Comment: 10/13 Holter frequent APCs, s/p pacemaker for SSS, on Eliquis Code(s): I48.0 - Paroxysmal atrial fibrillation Category: Medical Plan: On Eliquis for anticoagulation (3) Vitamin D deficiency: Code(s): E55.9 - Vitamin D deficiency, unspecified Category: Medical Plan: Continue vitamin-D supplement (4) (HFpEF) heart failure with preserved ejection fraction: Comment: Echo 2019 EF 20%, nl coronary cath 2021, Echo 01/2024 increase left ventricle wall thickness, ejection fraction 65%, moderate MR, mild pulmonary hypertension, intolerant to Farxiga (weakness), ACEI discontinued by pulmonology, Echo 01/2025 EF 65%. mod MR. mild pul HTN, f/u Dr. Coto Code(s): I50.30 - Unspecified diastolic (congestive) heart failure Category: Medical Plan: Continue furosemide with supplemental potassium, patient will return for fasting comprehensive panel , follow-up with cardiology Orders: Orders Comprehensive [place]. Panel Fast Today E55.9 - Vitamin D deficiency, unspecified, I10 - Essential (primary) hypertension, I48.0 - Paroxysmal atrial fibrillation, I50.30 - Unspecified diastolic (congestive) heart failure, J41.8 - Mixed simple and mucopurulent chronic bronchitis Lipid Panel Today E55.9 - Vitamin D deficiency, unspecified, I10 - Essential (primary) hypertension, I48.0 - Paroxysmal atrial fibrillation, I50.30 - Unspecified diastolic (congestive) heart failure, J41.8 - Mixed simple and mucopurulent chronic bronchitis TSH reflex Free T4 Today E55.9 - Vitamin D deficiency, unspecified, I10 - Essential (primary) hypertension, I48.0 - Paroxysmal atrial fibrillation, I50.30 - Unspecified diastolic (congestive) heart failure, J41.8 - Mixed simple and mucopurulent chronic bronchitis Vitamin D 25-OH Total Today E55.9 - Vitamin D deficiency, unspecified, I10 - Essential (primary) hypertension, I48.0 - Paroxysmal atrial fibrillation, I50.30 - Unspecified diastolic (congestive) heart failure, J41.8 - Mixed simple and mucopurulent chronic bronchitis Complete Blood Count Auto Diff Today E55.9 - Vitamin D deficiency, unspecified, I10 - Essential (primary) hypertension, I48.0 - Paroxysmal atrial fibrillation, I50.30 - Unspecified diastolic (congestive) heart failure, J41.8 - Mixed simple and mucopurulent chronic bronchitis Vitamin B12 and Folate Today E55.9 - Vitamin D deficiency, unspecified, I10 - Essential (primary) hypertension, I48.0 - Paroxysmal atrial fibrillation, I50.30 - Unspecified diastolic (congestive) heart failure, J41.8 - Mixed simple and mucopurulent chronic bronchitis Medications: Refilled cetirizine (Zyrtec) 10 mg PO DAILY 90 tabs 3RF furosemide 20 mg PO BID 180 tabs 3RF levothyroxine 25 mcg PO DAILY@0600 90 tabs 3RF apixaban (Eliquis) 5 mg PO BID 180 tabs 3RF azelastine administer into each nostril 2 sprays intranasal BID 30 mL 4RF omeprazole 20 mg PO DAILY 90 caps 3RF potassium chloride ER 20 mEq PO DAILY 90 tabs 3RF
--- OUTSIDE RECORDS SUMMARY | 2024-11-22 10:45 | XMS_ITS | Clinical Summary ---
Author Organization [facility] ity Address [address] [place] [address] Care Team Providers Care Church Secretary Name Role Phone Freida Yarbrough MD Primary Care Provider [phone] Surgical History Surgery Date Site/Laterality Comments OTHER SURGICAL HISTORY PROCEDURE: DENIES PREVIOUS SURGERY Medical History Medical History Date Comments Asthma DX:Asthma High blood pressure DX:High bloo d pressure COPD (chronic obstructive pu lmonary disease) ([facility] V24, CMS/HCC V28) DX:COPD (chronic o bstructive pulmonary disease) ([facility]) Historical Medical DX DX:Emphyse figueroa Family History Medical History Relation Name Comments [...] - 2023-2 5 season) 2024 Influenza Vaccine (Season Ended) 2025 Osteoporosis Screening (Bone Density Screening) 07/05/2031 07/05/2021, [...] Procedure Name Priority Date/Time Associated Diagnosis Comments [facility] DEXA AXIAL SKELETON Routine 07/05/2021 3:14 PM EST Age-related osteoporosis without current pathological fracture from Last 3 Months or Most Recently Relevant to Health Maintenance Results * [facility] DEXA AXIAL SKELETON (07/05/2021 3:14 PM EST) Anatomical Region Laterality Modality Mammography 07/05/2021 10:2 7 AM EST Narrative 07/05/2021 3:14 PM [facility] Diagnostic Imaging Department [address] [place], [place] [id number] Patient: ??AYLIN RAMIREZ ?/Age/Sex: 1945 - 76 - F Unit#: ??[id number] ? Location/Status: ??SPDIMAM/REG CLI ? Mnemonic/Ordering Site: ??MAMDEXAAX/SPMAM Ordering Physician: ??MAYRA CUELLO MD [facility] Dexa Axial Skeleton - 07/05/21 - 1105 [facility] Dexa Axial Skeleton INDICATION: POSTMENOPAUSAL Technique: Bone [...] placing the patient at risk for fracture. [id number] Dictating Physician: ??YUNG BURNS MD Electronically Signed by: ??YUNG BURNS MD Dic Date/Time: ??07/05/211512 Sign date/Time: ??07/05/21 1514 Procedure Note Yung Burns MD - 07/13/2022 [facility] Diagnostic Imaging Department [address] [place] [id number] Patient: AYLIN RAMIREZ Lissette /Age/Sex: 1945 - 76 - F Unit#: [id number] [facility] Mnemonic[facility]ing [facility] Ordering Physician: MAYRA CUELLO MD [facility] Dexa Axial Skeleton - 07/05/21 - 1105 [facility] Dexa Axial Skeleton INDICATION: POSTMENOPAUSAL Technique: Bone [...] osteoporosis, placing the patient at risk forfracture. 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
== END 2024-11-22 11:15 | disposition home or self-care (01) ==
LOC: HO.HMCC 09:55
PROVIDERS: PCP Internal Medicine; Visit Provider Internal Medicine
DX: J41.8 Mixed simple and mucopurulent chronic bronchitis (principal); I48.0 Paroxysmal atrial fibrillation; E55.9 Vitamin D deficiency, unspecified; I50.30 Unspecified diastolic (congestive) heart failure

== ENCOUNTER → 2024-11-22 09:52 | Outpatient (BNVA) | payer MEDICARE, SELFPAY | PROVIDERS: PCP Internal Medicine; Visit Provider Internal Medicine | DX: J41.8 Mixed simple and mucopurulent chronic bronchitis (principal); I48.0 Paroxysmal atrial fibrillation; E55.9 Vitamin D deficiency, unspecified; I50.30 Unspecified diastolic (congestive) heart failure | CPT/HCPCS: 99212 ==

== ENCOUNTER → 2024-11-24 23:59 | Outpatient (BNV) | payer MEDICARE, SELFPAY ==
--- NOTE | 2024-12-31 21:23 | A.OFFVIS_ITS ---
Intake Visit Reasons: Remote device check- [facility] Allergies gemifloxacin Allergy (Unknown, Verified 11/22/24 10:18) Rash montelukast [Singulair] Allergy (Unknown, Verified 11/22/24 10:18) mood swings ARB-Angiotensin Receptor Antagonist Adverse Reaction (Intermediate, Verified 11/22/24 11:38) Cough dapagliflozin [From [facility]] Adverse Reaction (Intermediate, Verified 11/22/24 11:36) polyuria lisinopril Adverse Reaction (Intermediate, Verified 11/22/24 11:38) Cough PFSH Medical History Chronic respiratory failure Bronchopneumonia Osteoporosis Cardiac pacemaker in situ HTN (hypertension) PAF (paroxysmal atrial fibrillation) COPD (chronic obstructive pulmonary disease) Chronic anticoagulation Renal failure Rhabdomyolysis Pneumonia Hyponatremia Hyperlipemia SSS (sick sinus syndrome) Meniere disease Sleep apnea Surgical History History of permanent cardiac pacemaker placement History of endoscopy History of hysterectomy History of cardiac cath Family History Father Lung cancer Mother COPD (chronic obstructive pulmonary disease) Social History Household Members: Spouse Housing: House Do you presently have visiting nurse or other home services: Yes (VNA and OT) Alcohol intake: never Patient Tobacco Use Status: Former Tobacco user Years Smoked: 30 +/- e-Cigarette/Vaping Use: Never Used Second Hand Smoke Exposure: No Advance Directives Date on File: 02/06/23 service: No Current occupational status: retired Cognitive needs: No Hearing needs: Yes Vision needs: Yes Office Procedures Cardiac Device Check Cardiac Device Check Details: PPM Good battery MAINTENANCE CONTROLLER 64% Episode of PMT recorded due to Afib. [id number] Cardiac Device Interrogation, pacemaker Procedure code (CPT) selection complete Assessment & Plan Assessment & Plan (1) Cardiac pacemaker in situ: Code(s): Z95.0 - Presence of cardiac pacemaker Category: Medical Plan Coding Level of Care Code Procedure Only Diagnoses Cardiac pacemaker in situ Z95.0 CPT Codes Cardiac Device Check - Cardiac Device 12: [id number] Cardiac Device Interrogation, pacemaker ([id number])
== END ==
PROVIDERS: PCP Internal Medicine; Visit Provider Internal Medicine Cardiovascular Disease
DX: I48.91 Unspecified atrial fibrillation (principal); Z95.0 Presence of cardiac pacemaker
CPT/HCPCS: 93294

== ENCOUNTER 2024-12-02 09:41 | Outpatient (AMB) | payer MEDICARE, SELFPAY ==
--- NOTE | 2024-12-02 09:47 | A.OFFVIS_ITS ---
Vital Signs 12/02/24 09:50 Height 5 ft Weight 113 lb 12.136 oz BMI 22.2 BP 110/62 Blood Pressure Location Lt brachial Position Sitting Pulse 71 Pulse Source Monitor Intake Visit Reasons: r/s 4 mth f/up Intake Note: 4 mth f/up Medical Biller/Coder Required: No Accompanied by: Self / Same As Patient Allergies gemifloxacin Allergy (Unknown, Verified 11/22/24 10:18) Rash montelukast [Singulair] Allergy (Unknown, Verified 11/22/24 10:18) mood swings ARB-Angiotensin Receptor Antagonist Adverse Reaction (Intermediate, Verified 11/22/24 11:38) Cough dapagliflozin [From [facility]] Adverse Reaction (Intermediate, Verified 11/22/24 11:36) polyuria lisinopril Adverse Reaction (Intermediate, Verified 11/22/24 11:38) Cough Medication List - Last Reconciled 12/02/24 by Sunil Coto MD acetaminophen 650 mg PO Q6H PRN albuterol sulfate 0.63 mg (3 mL) inhalation Q4-6H PRN albuterol sulfate 90 mcg/actuation 2 puffs inhalation QID PRN apixaban (Eliquis) 5 mg PO BID azelastine 2 sprays intranasal BID calcium carbonate (Calcium 600) 600 mg PO BID cetirizine (Zyrtec) 10 mg PO DAILY ferrous sulfate 324 mg PO TUTHSA furosemide 20 mg PO BID levothyroxine 25 mcg PO DAILY@0600 magnesium 400 mg PO BEDTIME multivitamin (Daily Multi-Vitamin tablet) 1 tab PO DAILY omeprazole 20 mg PO DAILY peg 400-propylene glycol (PF) 0.4-0.3 % (Systane (PF)) 1 drp ophthalmic (eye) BID potassium chloride ER 20 mEq PO DAILY pravastatin 20 mg PO BEDTIME Trelegy Ellipta 200-62.5-25 mcg (njzcqcvdpsj-tzxxovxly-npmvawrq) 1 inh inhalation DAILY 30 days NS HPI Comments Details: Pleasant 79-year-old female who is here for follow-up. She was seen in the hospital which presented with influenza a, COPD exacerbation and congestive heart failure. She was diuresed and treated for heart failure and started on guideline directed medical therapy because her ejection fraction was severely reduced on echocardiogram. The pattern look like LAD ischemia versus takotsubo cardiomyopathy. After discussion she was referred to [facility] she underwent cardiac catheterization by Dr. Givens because she belongs to [facility]. 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 She is here for follow-up after cardiac catheterization. She wishes to move her cardiovascular care to [facility]. She is denying any chest discomfort. She has chronic dyspnea due to underlying COPD and is oxygen dependent. Repeat echocardiography has shown resolution of LV dysfunction. In the interim she saw primary care physician and was noticed to have atrial fibrillation. After discussion she was started on apixaban. On follow-up today she is denying any palpitations. She has no chest pain. She has shortness of breath due to underlying lung disease. She is fatigued and tired. She underwent cardiac rehabilitation and feels that she has more energy and felt better. She has finished her sessions for cardiac rehabilitation. 05/15/23: She returns for follow-up. She was admitted at [facility] in February 2023. She was diagnosed with pneumonia and was treated with antibiotics and transition to oral doxycycline at discharge. She had echocardiography while she was inpatient which showed EF of 60 65%, moderate left atrial dilatation, severe mitral annular calcification, zocx-ql-fecetjix mitral regurgitation, moderate tricuspid valve regurgitation and moderate pulmonary hypertension. She contracted COVID-19 a week ago. She is saying she was getting better but last night she started coughing more. She is saying that she has been using more oxygen than usual to. She had some chills. No fevers otherwise. Appetite so far is fine. She is saying that she is producing green phlegm. Pacemaker interrogation was done which was quite unremarkable. 01/31/2024: She returns for follow-up. She has been stable from cardiovascular point of view. She still has some shortness of breath when she has out in the heat due to lung disease. She continues to be on supplemental oxygen. Mild edema in the lower extremities where she has been taking amlodipine 2.5 mg daily. Blood pressure in the office is also low 80/60. She is not dizzy or lightheaded. 05/27/24: Here for follow up. Echocardiography done in 02/10/2024 showing EF 65- 70% without any regional wall motion abnormalities. Mild RV dysfunction. Moderate mitral valve regurgitation and mild pulmonary hypertension. She had akkm-vv-umueffro mitral valve regurgitation in the past. There is severe mitral annular calcification. She is saying she has been doing well with supplemental oxygen. Recently she had an episode of shortness of breath and congestion and apparently it was felt that she has congestive heart failure episode. Her Lasix was increased to 20 mg twice a day from once a day and Farxiga was added. She is saying she has been doing well since the increase in Lasix. Overall appears to be quite euvolemic. She is asking about the mitral valve regurgitation. I have explained to her that she has calcific mitral valve disease and she has moderate mitral valve regurgitation. 12/02/2024: Here for follow-up. She is saying her oxygen demand has changed and she is requiring more oxygen now. She is still able to function outside with her Oxymizer. She said she could not tolerate Farxiga and has been off the medication at this stage. No chest pains and no other complaints currently. [facility] Medical History Chronic respiratory failure Bronchopneumonia Osteoporosis Cardiac pacemaker in situ HTN (hypertension) PAF (paroxysmal atrial fibrillation) COPD (chronic obstructive pulmonary disease) Chronic anticoagulation Renal failure Rhabdomyolysis Pneumonia Hyponatremia Hyperlipemia SSS (sick sinus syndrome) Meniere disease Sleep apnea Surgical History History of permanent cardiac pacemaker placement History of endoscopy History of hysterectomy History of cardiac cath Family History Father Lung cancer Mother COPD (chronic obstructive pulmonary disease) Social History Household Members: Spouse Housing: House Do you presently have visiting nurse or other home services: Yes (VNA and OT) Alcohol intake: never Patient Tobacco Use Status: Former Tobacco user Years Smoked: 30 +/- e-Cigarette/Vaping Use: Never Used Second Hand Smoke Exposure: No Advance Directives Date on File: 02/06/23 service: No Current occupational status: retired Cognitive needs: No Hearing needs: Yes Vision needs: Yes Review of Systems Const Denies chills, Denies fatigue, Denies fever(s), Denies frequent falls, Denies weakness, Denies weight gain and Denies weight loss ENT Denies dizziness Card Denies chest pain, Denies leg edema, Denies lightheadedness, Denies palpitations, Denies dyspnea and Denies dyspnea on exertion Resp Denies cough, Denies dyspnea and Denies dyspnea on exertion GI Denies hematochezia Musc Denies abnormal gait, Denies muscle weakness, Denies numbness, Denies radiating pain into limb and Denies tingling Neuro Denies abnormal gait, Denies dizziness, Denies frequent falls, Denies numbness, Denies tingling and Denies weakness Endo Denies fatigue and Denies palpitations Physical Exam Vital Signs: Last Vital Signs Pulse 71 12/02/24 09:50 BP 110/62 12/02/24 09:50 BMI result Body Mass Index 22.2 GENERAL APPEARANCE: in no acute distress, pleasant. NECK: no carotid bruit, no jugular venous distention. SKIN: no suspicious lesions, warm and dry. HEART: no murmurs, regular rate and rhythm. LUNGS: CTABL ABDOMEN: soft, nontender. EXTREMITIES: No edema. PERIPHERAL PULSES: equal. NEUROLOGIC: No gross deficits, AAO X 3 Office Procedures EKG Details: Wide QRS rhythm likely atrial fibrillation, right bundle-branch block, left anterior fascicular block, QTC 484 milliseconds. 06201-[id number], Complete Assessment & Plan Assessment & Plan (1) (HFpEF) heart failure with preserved ejection fraction: Comment: Echo 2019 EF 20%, nl coronary cath 2021, Echo 01/2024 increase left ventricle wall thickness, ejection fraction 65%, moderate MR, mild pulmonary hypertension, intolerant to Farxiga (weakness), ACEI discontinued by pulmonology, Echo 01/2025 EF 65%. mod MR. mild pul HTN, f/u Dr. Coto Code(s): I50.30 - Unspecified diastolic (congestive) heart failure Category: Medical (2) HTN (hypertension): Comment: off Amlodipine 01/2024, d/cd by cardiology Code(s): I10 - Essential (primary) hypertension Category: Medical (3) Cardiac pacemaker in situ: Code(s): Z95.0 - Presence of cardiac pacemaker Category: Medical Plan Pleasant 79 year female who is here for follow-up. She has background history of takotsubo cardiomyopathy in the setting of influenza. He also had atrial fibrillation and sick sinus syndrome status post pacemaker placement. Diastolic heart failure which has been stable without any symptoms/signs of heart failure at this point. Advanced COPD and she is on supplemental oxygen with increasing oxygen demand. We tried Farxiga in the past but she could not tolerate it and I think we should not try it again. Clinically stable. Overall no concerns on follow-up. She will follow up with us in few months. Thank you for allowing me to participate in the care of your patient. Please feel free to contact me if you have any questions. Coding Level of Care Code Est Pt Level 4 (81504) Diagnoses (HFpEF) heart failure with preserved ejection fraction I50.30 HTN (hypertension) I10 Cardiac pacemaker in situ Z95.0 CPT Codes EKG - CPT: 31529-Eswnrwnqrvzhipwrh, Complete ([id number])
[2024-12-02 09:50] VITALS: BP 110/62; PULSE 71; BMI 22.2
== END 2024-12-02 10:14 | disposition home or self-care (01) ==
LOC: HO.HCS 09:41
PROVIDERS: PCP Internal Medicine; Visit Provider Internal Medicine Cardiovascular Disease
DX: I50.30 Unspecified diastolic (congestive) heart failure (principal); I10 Essential (primary) hypertension; Z95.0 Presence of cardiac pacemaker
CPT/HCPCS: 93010; 99214

== ENCOUNTER → 2024-12-02 09:41 | Outpatient (BNVA) | payer MEDICARE, SELFPAY | PROVIDERS: PCP Internal Medicine; Visit Provider Internal Medicine Cardiovascular Disease | DX: I11.0 Hypertensive heart disease with heart failure (principal); I50.30 Unspecified diastolic (congestive) heart failure; Z95.0 Presence of cardiac pacemaker; Z99.81 Dependence on supplemental oxygen; Z87.891 Personal history of nicotine dependence | CPT/HCPCS: 93005; 99212 ==

== ENCOUNTER 2024-12-11 09:50 | Outpatient (REF) | payer MEDICARE, SELFPAY ==
--- OUTSIDE RECORDS SUMMARY | 2024-12-11 11:13 | XMS_ITS | Clinical Summary ---
Author Organization [facility] ity Address [address] [place] [address] Care Team Providers Care Natural Resources Professor Name Role Phone Freida Yarbrough MD Primary Care Provider [phone] Surgical History Surgery Date Site/Laterality Comments OTHER SURGICAL HISTORY PROCEDURE: DENIES PREVIOUS SURGERY Medical History Medical History Date Comments Asthma DX:Asthma High blood pressure DX:High bloo d pressure COPD (chronic obstructive pu lmonary disease) ([facility] V24, CMS/HCC V28) DX:COPD (chronic o bstructive pulmonary disease) ([facility]) Historical Medical DX DX:Emphyse figueroa Family History [...] Procedure Name Priority Date/Time Associated Diagnosis Comments [facility] DEXA AXIAL SKELETON Routine 07/05/2021 3:14 PM EST Age-related osteoporosis without current pathological fracture from Last 3 Months or Most Recently Relevant to Health Maintenance Results * [facility] DEXA AXIAL SKELETON (07/05/2021 3:14 PM EST) Anatomical Region Laterality Modality Mammography 07/05/2021 10:2 7 AM EST Narrative 07/05/2021 3:14 PM [facility] Diagnostic Imaging Department [address] [place], [place] [id number] Patient: ??AYLIN RAMIREZ ?/Age/Sex: 1945 - 76 - F Unit#: ??[id number] ? Location/Status: ??SPDIMAM/REG CLI ? Mnemonic/Ordering Site: ??MAMDEXAAX/SPMAM Ordering Physician: ??MAYRA CUELLO MD [facility] Dexa Axial Skeleton - 07/05/21 - 1105 [facility] Dexa Axial Skeleton INDICATION: POSTMENOPAUSAL [...] placing the patient at risk for fracture. [id number] Dictating Physician: ??YUNG BURNS MD Electronically Signed by: ??YUNG BURNS MD Dic Date/Time: ??07/05/211512 Sign date/Time: ??07/05/21 1514 Procedure Note Yung Burns MD - 07/13/2022 [facility] Diagnostic Imaging Department [address] [place] [id number] Patient: AYLIN RAMIREZ Lissette /Age/Sex: 1945 - 76 - F Unit#: [id number] [facility] CLI Mnemonic[facility] Ordering Physician: MAYRA CUELLO MD [facility] Dexa Axial Skeleton - 07/05/21 - [address] [facility] Dexa Axial Skeleton INDICATION: POSTMENOPAUSAL [...] osteoporosis, placing the patient at risk forfracture. 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
[2024-12-11 13:13] LABS: MANUAL DIFF FLAG NO
[2024-12-11 13:22] LABS: Basophils Absolute Auto 0.1 X10*3/uL (0.0-0.2); Eosinophils Absolute Auto 0.1 X10*3/uL (0.0-0.4); Eosinophils Percent Auto 1.8 % (0-4); Hematocrit 39.5 % (37.0-47.0); Hemoglobin 12.8 g/dl (12.0-16.0); Imm Gran Abs Auto 0.02 X10*3/uL (0.00-0.03); Imm Gran Pct Auto 0.3 % (0.0-0.4); Lymphocytes Absolute Auto 1.7 X10*3/uL (1.2-4.9); Lymphocytes Percent Auto 27.6 % (20-40); Mean Corpuscular HGB Conc 32.4 g/dl (31.0-35.0); Mean Corpuscular Hemoglobin 32.4 pg (27.0-33.0); Mean Platelet Volume 10.5 fL (9.4-12.3); Monocytes Absolute Auto 0.5 X10*3/uL (0.1-1.2); Monocytes Percent Auto 7.9 % (2-11); Neutrophils Absolute Auto 3.7 x10*3/uL (2.0-8.3); Neutrophils Percent Auto 61.4 % (45-73); Platelet Count 269 X10*3/uL (160-400); Red Blood Count 3.95 X10*6/uL (4.20-5.50); Red Cell Distribution Width 13.6 % (11.0-16.0)
[2024-12-11 14:01] LABS: Folate 14.8 ng/mL (> or = 4.0); Vitamin B12 1035 pg/mL (200-900)
[2024-12-11 15:15] LABS: Alanine Aminotransferase 15 U/L (0-31); Albumin Level 4.2 g/dL (3.5-5.0); Alkaline Phosphatase 55 U/L (39-117); Anion Gap 13 (12-20); Aspartate Amino Transferase 28 U/L (5-31); Bilirubin Total 0.7 mg/dL (0.0-1.0); Blood Urea Nitrogen 14 mg/dL (9-16); Calcium 9.1 mg/dL (8.4-10.2); Carbon Dioxide 27 mmol/L (22-29); Chloride 105 mmol/L (96-108); Cholesterol 195 mg/dL (<200); Estimated Glomerular Filt Rate > 60; Glucose Fasting 102 mg/dL (60-99); HDL Cholesterol 82 mg/dL (>40); LDL Cholesterol Calculated 98 mg/dL (<100); Potassium 3.8 mmol/L (3.3-5.1); Sodium 141 mmol/L (135-145); Total Protein 7.2 g/dL (6.5-8.0); Triglycerides 78 mg/dL (<150)
[2024-12-11 15:22] LABS: TSH reflex Free T4 4.38 uIU/mL (0.32-4.0); Vitamin D 25-OH Total 93.1 ng/mL (>30)
[2024-12-11 20:20] LABS: Free T4 (Free Thyroxine) 1.12 ng/dL (0.71-1.85)
== END 2024-12-11 09:51 | disposition home or self-care (01) ==
LOC: HO.HMGCLDS 09:50
PROVIDERS: PCP Internal Medicine; Visit Provider Internal Medicine
DX: I11.0 Hypertensive heart disease with heart failure (principal); I50.30 Unspecified diastolic (congestive) heart failure; E55.9 Vitamin D deficiency, unspecified; I48.0 Paroxysmal atrial fibrillation; J41.8 Mixed simple and mucopurulent chronic bronchitis
CPT/HCPCS: 36415; 80053; 80061; 82306; 82607; 82746; 84439; 84443; 85025

== ENCOUNTER 2025-01-01 09:43 | Outpatient (REF) | payer MEDICARE, SELFPAY ==
--- NOTE | ~2025-01-01 | XR_ITS ---
EXAMINATION: XR CHEST 2 VIEWS HISTORY: J96.11 - Chronic respiratory failure with hypoxia COMPARISON: Comparison is made with the prior examination dated 10/29/2024. FINDINGS: PA and lateral views of the chest are submitted. A left subclavian dual-chamber pacemaker is unchanged in position. The lungs are expanded and clear. There is no pleural effusion, pneumothorax, or pulmonary vascular congestion. There is prominence of the main pulmonary artery suggestive of pulmonary arterial hypertension. The heart remains enlarged. The aorta is calcified. There is degenerative disc disease of the spine. XR/XR chest 2V IMPRESSION: Cardiomegaly. No acute cardiopulmonary abnormality. Electronically signed by: Jerry Giordano MD 01/01/2025 11:16 AM EDT
[2025-01-01 10:44] LABS: MANUAL DIFF FLAG NO
[2025-01-01 10:49] LABS: Venous Blood Gas Refer to POC result
[2025-01-01 10:51] LABS: VBG Base Excess 5.5 mmol/L; VBG HCO3 31 mmol/L (22-26); VBG pCO2 51 mmHg; VBG pH 7.39 (7.32-7.43); VBG pO2 38 mmHg
[2025-01-01 11:28] LABS: Basophils Absolute Auto 0.1 X10*3/uL (0.0-0.2); Basophils Percent Auto 0.6 % (0-2); Eosinophils Absolute Auto 0.1 X10*3/uL (0.0-0.4); Eosinophils Percent Auto 0.9 % (0-4); Hemoglobin 12.6 g/dl (12.0-16.0); Imm Gran Abs Auto 0.03 X10*3/uL (0.00-0.03); Imm Gran Pct Auto 0.4 % (0.0-0.4); Lymphocytes Absolute Auto 0.9 X10*3/uL (1.2-4.9); Lymphocytes Percent Auto 11.7 % (20-40); Mean Corpuscular HGB Conc 32.3 g/dl (31.0-35.0); Monocytes Absolute Auto 0.4 X10*3/uL (0.1-1.2); Monocytes Percent Auto 4.9 % (2-11); Neutrophils Absolute Auto 6.4 x10*3/uL (2.0-8.3); Neutrophils Percent Auto 81.5 % (45-73); Platelet Count 267 X10*3/uL (160-400); Red Blood Count 3.94 X10*6/uL (4.20-5.50); Red Cell Distribution Width 13.6 % (11.0-16.0); White Blood Count 7.9 X10*3/uL (4.8-10.8)
[2025-01-01 11:40] LABS: D Dimer High Sensitivity < 150 NG/ML
[2025-01-01 11:47] LABS: B Type Natriuretic Peptide 477 pg/mL (<100)
[2025-01-01 11:52] LABS: Anion Gap 10 (12-20); Blood Urea Nitrogen 18 mg/dL (9-16); Calcium 9.2 mg/dL (8.4-10.2); Carbon Dioxide 30 mmol/L (22-29); Chloride 103 mmol/L (96-108); Estimated Glomerular Filt Rate > 60; Glucose Random 90 mg/dL (60-115); Sodium 139 mmol/L (135-145)
[2025-01-01 12:03] LABS: Troponin-I High Sensitivity 153.3 ng/L (<3.5-17.0)
[2025-01-01 12:20] LABS: Erythrocyte Sedimentation Rate 13 MM/HR (0-20)
[2025-01-02 09:44] LABS: Alpha 1 Anti-trypsin 163 mg/dL (83-199)
[2025-01-03 06:43] LABS: Immunoglobulin E 463 kU/L (<OR=114)
== END 2025-01-01 09:44 | disposition home or self-care (01) ==
LOC: HO.XRAY 09:43
PROVIDERS: PCP Internal Medicine; Visit Provider Hospitalist
DX: J18.0 Bronchopneumonia, unspecified organism (principal); Z13.89 Encounter for screening for other disorder
CPT/HCPCS: 36415; 71046; 80048; 82103; 82785; 82803; 83880; 84484; 85025; 85379; 85652

== ENCOUNTER 2025-01-01 09:43 | Outpatient (AMB) | payer MEDICARE, SELFPAY ==
[2025-01-01 09:45] VITALS: BP 127/64; PULSE 62; O2SAT 83; BMI 21.5
--- NOTE | 2025-01-01 09:45 | A.OFFVIS_ITS ---
Vital Signs 01/01/25 09:45 Height 5 ft Weight 110 lb BMI 21.5 BP 127/64 Blood Pressure Location Rt brachial Position Sitting Pulse 62 Pulse Source Pulse Oximeter Pulse Oximetry (%) 83 L Oxygen Delivery Method Nasal Cannula Oxygen Flow Rate 6 Intake Visit Reasons: copd Allergies gemifloxacin Allergy (Unknown, Verified 01/01/25 13:26) Rash montelukast [Singulair] Allergy (Unknown, Verified 01/01/25 13:26) mood swings ARB-Angiotensin Receptor Antagonist Adverse Reaction (Intermediate, Verified 01/01/25 13:26) Cough dapagliflozin [From Farxiga] Adverse Reaction (Intermediate, Verified 01/01/25 13:26) polyuria lisinopril Adverse Reaction (Intermediate, Verified 01/01/25 13:26) Cough HPI Comments Details: The patient is an 79 year woman no COPD and also heart disease with chronic respiratory failure on oxygen will was already established with the [facility] bookkeeping clerk but now she is looking to transitioning her care to [facility]. The patient already is on adequate therapy for COPD with [facility]. She also uses a portable oxygen concentrator 24 hours a day. She does have a concentrator at home. When she is out and about she does use about 5-6 L pulse and when she is at home she is able to be on the concentrator continuous around 3-4 L. lately though she has been on more oxygen that she has been having more chest congestion and bronchitis. She has had pneumonia in the past. She had a CT scan back in 2022 when she had been the hospital bilateral pneumonia. We did review her CT scan demonstrating emphysematous changes and significant nodular like airspace disease. He has had additional imaging studies but he has been a [place] and we do not have access to those. Her last chest x-ray also was from 2022. We did go for brief walking oximetry the patient did desaturate down to the 70s on her pulse device. Therefore we switched her over to continuous 4 L continues right now and she is going to go get an x-ray. She does have some crackles in the right base suggesting the possibility of bronchopneumonia. Likely worsening her gas exchange she did have a blood gas in the past demonstrating normal pCO2. At some point when she is better were able to check her blood gas again to see if he has any evidence of any chronic hypercapnia. The patient also will provide us with a sputum culture if the antibiotics are not helpful in improving her chest congestion. She already has a nebulizer although she is not using it she is going to restart using it for chest PT and will provide her with an Acapella valve for better mucus clearance and bronchopulmonary hygiene. 01/01/2025 the patient is here for pulmonary follow-up visit. Since we last spoke she has been having worsening respiratory symptoms. She has had to increase her oxygen up to 6 L which is the maximum that her concentrator can provide her at home. When she came in with a portable oxygen concentrator 6 L pulse she was only saturating around 80%. His after walking to the office. We were able to put her on 6 L on the continuous flow in her oxygen did improve to about 95% with some work. She has been using her respiratory therapy has been helpful. Initially Trelegy did make a big difference. We did have her go for a chest x-ray and also blood work. She is on Eliquis although I still checked a D-dimer which was negative. Hemoglobin was stable but her cardiac enzymes were significantly elevated 153 and her brain atretic peptide seem to be higher than her baseline. Therefore likely that she has some congestive heart failure right now. View of the significant elevation of the cardiac enzymes and her comorbidities I did recommend she come to the hospital. I did call the ER to le t them know that she was on her way. [facility] Medical History (Updated 01/01/25 @ 15:45 by Lefty Tapia MD) Pulmonary hypertension Chronic respiratory failure Bronchopneumonia Osteoporosis Cardiac pacemaker in situ HTN (hypertension) PAF (paroxysmal atrial fibrillation) COPD (chronic obstructive pulmonary disease) Chronic anticoagulation Renal failure Rhabdomyolysis Pneumonia Hyponatremia Hyperlipemia SSS (sick sinus syndrome) Meniere disease Sleep apnea Surgical History History of permanent cardiac pacemaker placement History of endoscopy History of hysterectomy History of cardiac cath Family History Father Lung cancer Mother COPD (chronic obstructive pulmonary disease) Social History Household Members: Spouse Housing: House Do you presently have visiting nurse or other home services: Yes (VNA and OT) Alcohol intake: never Patient Tobacco Use Status: Former Tobacco user Years Smoked: 30 +/- e-Cigarette/Vaping Use: Never Used Second Hand Smoke Exposure: No Advance Directives: Yes Advance Directives on File: Yes Advance Directives Date on File: 02/06/23 Do you have a plan to hurt others: No Plan service: No Current occupational status: retired Cognitive needs: No Hearing needs: Yes Vision needs: Yes Review of Systems Const Reports fatigue and Denies fever(s) ENT Denies nasal obstruction Card Denies chest pain, Reports dyspnea and Reports dyspnea on exertion Resp Reports change in phlegm color, Reports chest congestion, Reports cough, Reports dyspnea, Reports dyspnea on exertion and Reports wheezing GI Reports no additional complaints Musc Reports abnormal gait, Reports back pain and Reports myalgias Skin/Breast Denies rash Neuro Reports abnormal gait Endo Reports fatigue Suresh/Lymph Denies easy bleeding Aller/Immun Reports wheezing Physical Exam Vital Signs: Last Vital Signs Pulse 62 01/01/25 09:45 BP 127/64 01/01/25 09:45 Pulse Ox 83 L 01/01/25 09:45 Oxygen Delivery Method Nasal Cannula 01/01/25 09:45 Oxygen Flow Rate 6 01/01/25 09:45 BMI result Body Mass Index 21.5 Const General: comfortable and tired appearing HEENT Head: Yes normocephalic Neck Neck: Yes supple Chest Chest palpation & inspection: normal inspection of the chest Resp Effort & Inspection: normal respiratory effort and prolonged expiratory phase Auscultation: rhonchi and diminished lung sounds Cardio Heart sounds: S1 normal heart sound present and S2 normal heart sound present GI Palpation (GI): Soft to palpation Skin General skin exam: no rashes or lesions noted Extrem General: Yes cyanosis Assessment & Plan Assessment & Plan (1) Bronchopneumonia: Code(s): J18.0 - Bronchopneumonia, unspecified organism Category: Medical (2) COPD (chronic obstructive pulmonary disease): Comment: O2 dependent up to 5 l NC with exertion, Dr. Rhoades, started on Azithromycin QOD by pul 01/2024, ? Extrinsic asthma allergic to cats and dust, tried immunotherapy in the past, montelukast caused mood swings Code(s): J44.9 - Chronic obstructive pulmonary disease, unspecified Category: Medical Qualifiers: COPD type: chronic bronchitis Chronic bronchitis type: mixed simple and mucopurulent Qualified Code(s): J41.8 - Mixed simple and mucopurulent chronic bronchitis (3) Chronic respiratory failure: Code(s): J96.10 - Chronic respiratory failure, unspecified whether with hypoxia or hypercapnia Category: Medical Qualifiers: Respiratory failure complication: hypoxia Qualified Code(s): J96.11 - Chronic respiratory failure with hypoxia (4) Acute on chronic respiratory failure with hypoxia and hypercapnia: Code(s): J96.21 - Acute and chronic respiratory failure with hypoxia; J96.22 - Acute and chronic respiratory failure with hypercapnia Category: Medical (5) Congestive heart failure: Code(s): I50.9 - Heart failure, unspecified Category: Medical Qualifiers: Heart failure type: systolic Heart failure chronicity: acute on chronic Qualified Code(s): I50.23 - Acute on chronic systolic (congestive) heart failure (6) Elevated troponin I level: Code(s): R79.89 - Other specified abnormal findings of blood chemistry Category: Medical (7) Pulmonary hypertension: Code(s): I27.20 - Pulmonary hypertension, unspecified Category: Medical Plan continue Trelegy ANAIS as needed Nebulizer 2 times aday followed by acapella valve for CPT CXR-no evidence of pneumonia labs +trop I will tx to the ED. Likely volume overload superimposed on severe emphysema/COPD. Will discuss with DME to increase Oxygen needs 6L/min at rest and 7l/min with activity. The pt carries a poor prognosis. Will benefit from a non invasive ventilator to improve gas exchange and decrease hospitalizations. vasodilators potentially dangerous Continue oxygen, does not seem to respond well to conserving device F/U 2 months Orders: Orders Complete Blood Count Auto Diff Today I50.30 - Unspecified diastolic (congestive) heart failure, J18.0 - Bronchopneumonia, unspecified organism, J96.11 - Chronic respiratory failure with hypoxia Basic Metabolic Panel Today I50.30 - Unspecified diastolic (congestive) heart failure, J18.0 - Bronchopneumonia, unspecified organism, J96.11 - Chronic respiratory failure with hypoxia Venous Blood Gas Today I50.30 - Unspecified diastolic (congestive) heart failure, J18.0 - Bronchopneumonia, unspecified organism, J96.11 - Chronic respiratory failure with hypoxia Troponin-I High Sensitivity Today I50.30 - Unspecified diastolic (congestive) heart failure, J18.0 - Bronchopneumonia, unspecified organism, J96.11 - Chronic respiratory failure with hypoxia B Type Natriuretic Peptide Today I50.30 - Unspecified diastolic (congestive) heart failure, J18.0 - Bronchopneumonia, unspecified organism, J96.11 - Chronic respiratory failure with hypoxia Erythrocyte Sedimentation Rate Today I50.30 - Unspecified diastolic (congestive) heart failure, J18.0 - Bronchopneumonia, unspecified organism, J96.11 - Chronic respiratory failure with hypoxia D Dimer High Sensitivity Today I50.30 - Unspecified diastolic (congestive) heart failure, J18.0 - Bronchopneumonia, unspecified organism, J96.11 - Chronic respiratory failure with hypoxia XR chest 2V Today I50.30 - Unspecified diastolic (congestive) heart failure, J18.0 - Bronchopneumonia, unspecified organism, J96.11 - Chronic respiratory failure with hypoxia Medications: New prednisone PO daily; Take 6 tabs daily x 3 days, then 5 tabs x 3 days, then 4 tabs x 3 days, then 3 tabs x 3 days, then 2 tabs daily x 3 days, then 1 tab x 3 days to complete. 18 days 63 tabs 0RF azithromycin Take 1 tablet on Monday/Monday/Monday 250 mg PO 3XW 28 days 12 tabs 6RF K21.9 - Gastro-esophageal reflux disease without esophagitis Coding Level of Care Code Est Pt Level 5 (39569) Complex EM visit Add On G2211 Diagnoses Bronchopneumonia J18.0 Mixed simple and mucopurulent chronic bronchitis J41.8 COPD type: chronic bronchitis Chronic bronchitis type: mixed simple and mucopurulent Chronic respiratory failure with hypoxia J96.11 Respiratory failure complication: hypoxia Acute on chronic respiratory failure with hypoxia and hypercapnia J96.21; J96.22 Acute on chronic systolic congestive heart failure I50.23 Heart failure type: systolic Heart failure chronicity: acute on chronic Elevated troponin I level R79.89 Pulmonary hypertension I27.20 Time Spent (min) 60
--- OUTSIDE RECORDS SUMMARY | 2025-01-01 10:42 | XMS_ITS | Clinical Summary ---
Author Organization [facility] ity Address [address] [place] [address] Care Team Providers Care Dedicated Driver Name Role Phone Freida Yarbrough MD Primary Care Provider [phone] Surgical History Surgery Date Site/Laterality Comments OTHER SURGICAL HISTORY PROCEDURE: DENIES PREVIOUS SURGERY Medical History Medical History Date Comments Asthma DX:Asthma High blood pressure DX:High bloo d pressure COPD (chronic obstructive pu lmonary disease) ([facility] V24, CMS/HCC V28) DX:COPD (chronic o bstructive pulmonary disease) ([facility]) Historical Medical DX DX:Emphyse figueroa [...] Procedure Name Priority Date/Time Associated Diagnosis Comments [facility] DEXA AXIAL SKELETON Routine 07/05/2021 3:14 PM EST Age-related osteoporosis without current pathological fracture from Last 3 Months or Most Recently Relevant to Health Maintenance Results * [facility] DEXA AXIAL SKELETON (07/05/2021 3:14 PM EST) Anatomical Region Laterality Modality Mammography 07/05/2021 10:2 7 AM EST Narrative 07/05/2021 3:14 PM [facility] Diagnostic Imaging Department [address] [place], [place] [id number] Patient: ??AYLIN RAMIREZ ?/Age/Sex: 1945 - 76 - F Unit#: ??[id number] ? Location/Status: ??SPDIMAM/REG CLI ? Mnemonic/Ordering Site: ??MAMDEXAAX/SPMAM Ordering Physician: ??MAYRA CUELLO MD [facility] Dexa Axial Skeleton - 07/05/21 - 1105 [facility] Dexa Axial Skeleton INDICATION: POSTMENOPAUSAL [...] placing the patient at risk for fracture. [id number] Dictating Physician: ??YUNG BURNS MD Electronically Signed by: ??YUNG BURNS MD Dic Date/Time: ??07/05/211512 Sign date/Time: ??07/05/21 1514 Procedure Note Yung Burns MD - 07/13/2022 [facility] Diagnostic Imaging Department [address] [place] [id number] Patient: AYLIN RAMIREZ Lissette /Age/Sex: 1945 - 76 - F Unit#: [id number] Location/Status: [facility] CLI Mnemonic[facility] Ordering Physician: MAYRA CUELLO MD [facility] Dexa Axial Skeleton - 07/05/21 - 1105 [facility] Dexa Axial Skeleton INDICATION: POSTMENOPAUSAL [...] osteoporosis, placing the patient at risk forfracture. [id number] Dictating Physician: YUNG BURNS MD Electronically Signed by: YUNG BURNS MD Dic Date/Time: 07/05/211512 Sign date/Time: 07/05/21 1514 us Mayra Cuello MD IMG BI PROCEDURES Final Res ult from Last 3 Months or Most Recently Relevant to Health Maintenance Advance Directives Documents on File Type Date Recorded Patient [employer] Developer Expl anation Health Care Decision (hx) 08/29/2012 [...] (hx) 08/29/2012 AD GARDNER DIRECTIVE Care Teams Dedicated Driver Relationship Specialty Start Date End Date Freida Yarbrough MD PCP - General Internal Medicine 1945
== END 2025-01-01 10:27 | disposition home or self-care (01) ==
LOC: HO.HPS 09:44
PROVIDERS: PCP Internal Medicine; Visit Provider Hospitalist
DX: J18.0 Bronchopneumonia, unspecified organism (principal); J41.8 Mixed simple and mucopurulent chronic bronchitis; J96.11 Chronic respiratory failure with hypoxia; J96.21 Acute and chronic respiratory failure with hypoxia; J96.22 Acute and chronic respiratory failure with hypercapnia; I50.23 Acute on chronic systolic (congestive) heart failure; R79.89 Other specified abnormal findings of blood chemistry; I27.20 Pulmonary hypertension, unspecified
CPT/HCPCS: 99215; G2211

== ENCOUNTER → 2025-01-01 10:43 | Outpatient (BNV) | payer MEDICARE, SELFPAY | PROVIDERS: PCP Internal Medicine; Visit Provider Radiology Diagnostic Radiology | DX: I51.7 Cardiomegaly (principal) | CPT/HCPCS: 71045; 71046 ==

== ENCOUNTER 2025-01-01 12:44 | Observation (INO) | payer MEDICARE, SELFPAY ==
--- NOTE | ~2025-01-01 | XR_ITS ---
EXAMINATION: XR CHEST 1 VIEW HISTORY: cp COMPARISON: Comparison is made with the prior examination performed earlier in the day. FINDINGS: Two AP portable views of the chest performed at 2:53 PM are submitted. A left subclavian dual-chamber pacemaker is unchanged in position. The lungs are expanded and clear. There is no pleural effusion, pneumothorax, or pulmonary vascular congestion. The heart remains enlarged. There is prominence of the pulmonary arteries without change, compatible with pulmonary arterial hypertension. The aorta is calcified. There is degenerative disc disease of the spine. XR/XR chest 1V IMPRESSION: Cardiomegaly. No acute cardiopulmonary abnormality. Electronically signed by: Jerry Giordano MD 01/01/2025 03:19 PM EDT RP
--- NOTE | 2025-01-01 12:47 | ECG_ITS ---
Test Reason : cp Blood Pressure : */* mmHG Vent. Rate : 60 BPM Atrial Rate : 60 BPM P-R Int : 178 ms QRS Dur : 158 ms QT Int : 494 ms P-R-T Axes : * 120 -53 degrees QTcB Int : 494 ms AV dual-paced rhythm Abnormal ECG When compared with ECG of 16-Mar-2023 08:02, Electronic ventricular pacemaker has replaced Sinus rhythm Vent. rate has decreased by 38 bpm Referred By: Chepe Wyatt Electronically Signed By: NESTOR RIBERA MD
[2025-01-01 13:13] LABS: MANUAL DIFF FLAG NO
[2025-01-01 13:16] VITALS: BP 74/36; PULSE 62; RESP 20; TEMP 36.2; O2SAT 96; BMI 21.5
[2025-01-01 13:16] LABS: Basophils Absolute Auto 0.1 X10*3/uL (0.0-0.2); Basophils Percent Auto 0.5 % (0-2); Eosinophils Percent Auto 0.3 % (0-4); Hemoglobin 13.1 g/dl (12.0-16.0); Imm Gran Abs Auto 0.04 X10*3/uL (0.00-0.03); Imm Gran Pct Auto 0.4 % (0.0-0.4); Lymphocytes Absolute Auto 1.1 X10*3/uL (1.2-4.9); Lymphocytes Percent Auto 12.1 % (20-40); Mean Corpuscular HGB Conc 33.6 g/dl (31.0-35.0); Mean Corpuscular Hemoglobin 32.7 pg (27.0-33.0); Mean Corpuscular Volume 97.3 fL (80.0-98.0); Mean Platelet Volume 9.3 fL (9.4-12.3); Monocytes Absolute Auto 0.4 X10*3/uL (0.1-1.2); Monocytes Percent Auto 4.7 % (2-11); Neutrophils Absolute Auto 7.5 x10*3/uL (2.0-8.3); Platelet Count 260 X10*3/uL (160-400); Red Blood Count 4.01 X10*6/uL (4.20-5.50); Red Cell Distribution Width 13.7 % (11.0-16.0); White Blood Count 9.2 X10*3/uL (4.8-10.8)
[2025-01-01 13:21] LABS: INTERNATIONAL NORM RATIO 1.7 (0.9-1.1); Prothrombin Time 19.1 SEC (10.9-12.4)
[2025-01-01 13:24] LABS: Partial Thromboplastin Time 38.5 SEC (26.0-36.8)
--- NOTE | 2025-01-01 13:24 | ED.GENADULT ---
HPI - General Adult General Chief complaint: General Medical Stated complaint: Dr. Tapia expect / heart issues Time Seen by Provider: 01/01/25 14:15 History of Present Illness HPI narrative: Patient is an 79 old female with a history of COPD baseline is on 6 L of oxygen. Has a pacemaker. Presented today with having shortness of breath. Patient claims is approximately baseline. There is no chest pain there is no diaphoresis. There is no fever no chills. Patient is noted to have a low blood pressure at triage. Sent in for further evaluation by Pulmonary because patient had an elevated troponin. Related Data Home Medications ?Medication ?Instructions ?Recorded ?Confirmed calcium carbonate (Calcium 600) 600 mg PO BID 07/16/22 12/02/24 magnesium 200 mg tablet 400 mg PO BEDTIME 07/16/22 12/02/24 peg 400-propylene glycol (PF) 0.4 1 drp ophthalmic (eye) BID 01/31/23 12/02/24 %-0.3 % eye drops in a dropperette (Systane (PF)) acetaminophen 325 mg tablet 650 mg PO Q6H PRN Pain 03/15/23 12/02/24 ferrous sulfate 324 mg (65 mg 324 mg PO TUTHSA 03/15/23 12/02/24 iron) tablet,delayed release multivitamin (Daily Multi-Vitamin 1 tab PO DAILY 04/20/23 12/02/24 tablet) Previous Rx's ?Medication ?Instructions ?Recorded albuterol sulfate 90 mcg/actuation 2 puff inhalation QID PRN 06/09/24 aerosol inhaler Shortness Of Breath Or Wheezing #8.5 grams albuterol sulfate 0.63 mg/3 mL 0.63 mg (3 mL) inhalation Q4-6H 06/14/24 solution for nebulization PRN for wheezing #180 mL pravastatin 20 mg tablet 20 mg PO BEDTIME #90 tabs 09/19/24 Trelegy Ellipta 200 mcg-62.5 1 inh inhalation DAILY 30 days #60 10/29/24 mcg-25 mcg powder for inhalation ea (nbrzflduegc-uxlhullau-avvbglhj) apixaban 5 mg tablet (Eliquis) 5 mg PO BID #180 tabs 11/22/24 azelastine 137 mcg (0.1 %) nasal 2 spray intranasal BID #30 mL 11/22/24 spray cetirizine 10 mg tablet (Zyrtec) 10 mg PO DAILY #90 tabs 11/22/24 furosemide 20 mg tablet 20 mg PO BID #180 tabs 11/22/24 levothyroxine 25 mcg tablet 25 mcg PO DAILY@0600 #90 tabs 11/22/24 omeprazole 20 mg capsule,delayed 20 mg PO DAILY #90 caps 11/22/24 release potassium chloride 20 mEq 20 meq PO DAILY #90 tabs 11/22/24 tablet,extended release azithromycin 250 mg tablet 250 mg PO 3XW 28 days #12 tabs 01/01/25 prednisone 10 mg tablet See Rx Instructions PO DAILY 18 01/01/25 days #63 tabs Allergies Allergy/AdvReac Type Severity Reaction Status Date / Time gemifloxacin Allergy Unknown Rash Verified 01/01/25 13:26 montelukast [Singulair] Allergy Unknown mood swings Verified 01/01/25 13:26 ARB-Angiotensin Receptor AdvReac Intermediate Cough Verified 01/01/25 13:26 Antagonist dapagliflozin [From [facility]] AdvReac Intermediate polyuria Verified 01/01/25 13:26 lisinopril AdvReac Intermediate Cough Verified 01/01/25 13:26 Review of Systems Review of Systems: Positive history of congestive heart failure positive history of COPD Yes all other systems are reviewed and are negative [facility] Past Medical History Attestation statement: The following information was validated with the patient. Medical History Chronic respiratory failure Bronchopneumonia Osteoporosis Cardiac pacemaker in situ HTN (hypertension) PAF (paroxysmal atrial fibrillation) COPD (chronic obstructive pulmonary disease) Chronic anticoagulation Renal failure Rhabdomyolysis Pneumonia Hyponatremia Hyperlipemia SSS (sick sinus syndrome) Meniere disease Sleep apnea Surgical History History of permanent cardiac pacemaker placement History of endoscopy History of hysterectomy History of cardiac cath Family History Family History Father Lung cancer Mother COPD (chronic obstructive pulmonary disease) Social History Social History Household Members: Spouse Housing: House Do you presently have visiting nurse or other home services: Yes (VNA and OT) Alcohol intake: never Patient Tobacco Use Status: Former Tobacco user Years Smoked: 30 +/- e-Cigarette/Vaping Use: Never Used Second Hand Smoke Exposure: No Advance Directives: Yes Advance Directives on File: Yes Advance Directives Date on File: 02/06/23 Do you have a plan to hurt others: No Plan service: No Current occupational status: retired Cognitive needs: No Hearing needs: Yes Vision needs: Yes Physical Exam ED Vital Signs: Vital Signs - 24 hr 01/01/25 13:16 01/01/25 14:28 Temperature 97.2 F 97.7 F Pulse Rate 62 60 Respiratory Rate 20 22 H Blood Pressure 74/36 L 114/57 L Pulse Oximetry 96 95 Oxygen Delivery Method Nasal Cannula Nasal Cannula Oxygen Flow Rate 6 BMI result Body Mass Index 21.5 Appearance: Alert. Oriented X3. No acute distress. Eyes: Pupils equal, round and reactive to light. ENT: Pharynx normal. Neck: Normal inspection. Neck supple. No lymph nodes noted. No crepitus CVS: Normal heart rate and rhythm. Pulses normal. Normal S1 and S2 Respiratory: Diminished breath sounds bilaterally Abdomen: Soft and nontender. No rigidity. No distention. good BS x4 Skin: Skin warm and dry. Normal skin color. Normal skin turgor. Extremities: No lower extremity edema. Neurovascular intact to all extremities. No Lacerations. No Rash Neuro: Oriented X 3. No motor deficit. No sensory deficit. Moving all extermities. No slurred speech Course Course Course Narrative: RME: 79 yold female sent to the ED by Dr. Gonzales of Pulmonology for positive troponin. Patient denies any chest pain. Patient is on 5 liter oxygen baseline. patient is hypotensive in triage. patient to be brought to the ED. labs ordered Medical Decision Making Medical Decision Making MDM Narrative: Patient's lab consistent with congestive heart failure and baseline COPD. Patient is BNP was 500 this is higher than baseline of 250. Troponin is 160. This is old. Patient has no chest pain associated with these symptoms. My interpretation of patient's EKG showed a paced rhythm heart rate was 90. White count is normal. Patient is electrolytes showed normal BUN and creatinine. Discussed patient's finding with the straw hat brusher Dr. Tapia. Want patient to be admitted for further evaluation. Differential Diagnosis Differential Diagnoses: The differential diagnosis associated with the presentation includes COPD, CHF Admission/Observation Consideration of admission/observation: Escalation of care including admission/observation considered Consult Healthcare Provider Management of the patient was discussed with: Hospitalist and Lumber S[employer] Machine (Pulmonary) Lab Data MDM Lab Attestation statement: I reviewed the patient's lab results. 01/01/25 12:58 01/01/25 12:58 Labs: Lab Results 01/01/25 Range/Units 12:58 WBC 9.2 (4.8-10.8) X10*3/uL RBC 4.01 L (4.20-5.50) X10*6/uL Hgb 13.1 (12.0-16.0) g/dl Hct 39.0 (37.0-47.0) % MCV 97.3 (80.0-98.0) fL MCH 32.7 (27.0-33.0) pg MCHC 33.6 (31.0-35.0) g/dl RDW 13.7 (11.0-16.0) % Plt Count 260 (160-400) X10*3/uL MPV 9.3 L (9.4-12.3) fL Immature Gran % (Auto) 0.4 (0.0-0.4) % Neut % (Auto) 82.0 H (45-73) % Lymph % (Auto) 12.1 L (20-40) % [place] % (Auto) 4.7 (2-11) % Eos % (Auto) 0.3 (0-4) % Baso % (Auto) 0.5 (0-2) % Lymph # (Auto) 1.1 L (1.2-4.9) X10*3/uL [place] # (Auto) 0.4 (0.1-1.2) X10*3/uL Eos # (Auto) 0.0 (0.0-0.4) X10*3/uL Baso # (Auto) 0.1 (0.0-0.2) X10*3/uL Abs Immat Gran (auto) 0.04 H (0.00-0.03) X10*3/uL Absolute Neuts (auto) 7.5 (2.0-8.3) x10*3/uL Absolute Nucleated RBC 0.000 (0.0-0.012) X10*3/uL Nucleated RBC % (auto) 0.0 (0.0-0.2) /100WBC PT 19.1 H (10.9-12.4) SEC INR 1.7 H (0.9-1.1) APTT 38.5 H (26.0-36.8) SEC Sodium 141 (135-145) mmol/L Potassium 4.0 (3.3-5.1) mmol/L Chloride 103 (96-108) mmol/L Carbon Dioxide 29 (22-29) mmol/L Anion Gap 13 (12-20) BUN 18 H (9-16) mg/dL Creatinine 0.86 (0.5-1.4) mg/dL Estim Creat Clear Calc 37.4 Estimated GFR > 60 Random Glucose 111 (60-115) mg/dL Calcium 9.5 (8.4-10.2) mg/dL Total Bilirubin 0.8 (0.0-1.0) mg/dL AST 30 (5-31) U/L ALT 13 (0-31) U/L Alkaline Phosphatase 50 (39-117) U/L Troponin I High Sens 159.3 H* (<3.5-17.0) ng/L B-Natriuretic Peptide 549 H (<100) pg/mL Total Protein 7.2 (6.5-8.0) g/dL Albumin 4.3 (3.5-5.0) g/dL Independent Interpretation I performed an independent interpretation of an: EKG (Paste heart rate was 60) and Plain X-Ray (No focal infiltrate noted) Radiology Impression Discussion of test interpretation with radiology: I have reviewed the radiologist's reading. External Record Review External record reviewed: Inpatient record and Office record Chronic Conditions COPD, congestive heart failure Social Determinants Patient?s care significantly limited by Social Determinants of Health including: Problems related to primary support group Critical Care Time Critical Care Time Critical Care Time: Yes Total Critical Care Time: 40 Attestation: I have personally provided 40 minutes of critical care time exclusive of time spent on separately billable procedures. ?Time includes review of lab data, radiology results, discussion with consultants, and monitoring for potential decompensation. ?Interventions were performed as documented above Discharge Plan Discharge Clinical Impression: COPD (chronic obstructive pulmonary disease), Congestive heart failure Patient Disposition: Admitted As Inpatient Prescriptions: No Action albuterol sulfate 90 mcg/actuation HFA aerosol inhaler 2 puff inhalation QID PRN (Reason: Shortness Of Breath Or Wheezing) Qty: 8.5 2RF albuterol sulfate 0.63 mg/3 mL solution for nebulization 0.63 mg inhalation Q4-6H PRN (Reason: for wheezing) Qty: 180 3RF pravastatin 20 mg tablet 20 mg PO BEDTIME Qty: 90 3RF Trelegy Ellipta 200-62.5-25 mcg blister with device 1 inh inhalation DAILY 30 Days Qty: 60 11RF calcium carbonate [Calcium 600] 600 mg calcium (1,500 mg) Tablet 600 mg PO BID magnesium 200 mg Tablet 400 mg PO BEDTIME Systane (PF) 0.4-0.3 % Dropperette 1 drp OPHTHALMIC (EYE) BID Rx Instructions: instill 1 drop into both eyes acetaminophen 325 mg Tablet 650 mg PO Q6H PRN (Reason: Pain) ferrous sulfate 324 mg (65 mg iron) tablet,delayed release (DR/EC) 324 mg PO TUTHSA multivitamin [Daily Multi-Vitamin] Tablet 1 tab PO DAILY Eliquis 5 mg tablet 5 mg PO BID Qty: 180 3RF azelastine 137 mcg (0.1 %) spray,non-aerosol 2 spray intranasal BID Qty: 30 4RF Rx Instructions: administer into each nostril cetirizine [Zyrtec] 10 mg tablet 10 mg PO DAILY Qty: 90 3RF furosemide 20 mg tablet 20 mg PO BID Qty: 180 3RF levothyroxine 25 mcg tablet 25 mcg PO DAILY@0600 Qty: 90 3RF omeprazole 20 mg capsule,delayed release(DR/EC) 20 mg PO DAILY Qty: 90 3RF potassium chloride 20 mEq tablet extended release 20 meq PO DAILY Qty: 90 3RF prednisone 10 mg tablet See Rx Instructions PO DAILY 18 Days Qty: 63 0RF Rx Instructions: PO daily; Take 6 tabs daily x 3 days, then 5 tabs x 3 days, then 4 tabs x 3 days, then 3 tabs x 3 days, then 2 tabs daily x 3 days, then 1 tab x 3 days to complete. azithromycin 250 mg tablet 250 mg PO 3XW 28 Days Qty: 12 6RF Rx Instructions: Take 1 tablet on Monday/Monday/Monday Print Language: Belarusian
[2025-01-01 13:36] LABS: Alanine Aminotransferase 13 U/L (0-31); Albumin Level 4.3 g/dL (3.5-5.0); Alkaline Phosphatase 50 U/L (39-117); Anion Gap 13 (12-20); Aspartate Amino Transferase 30 U/L (5-31); Bilirubin Total 0.8 mg/dL (0.0-1.0); Blood Urea Nitrogen 18 mg/dL (9-16); Calcium 9.5 mg/dL (8.4-10.2); Carbon Dioxide 29 mmol/L (22-29); Chloride 103 mmol/L (96-108); Creatinine Clr Calc Pharmacy 37.4; Estimated Glomerular Filt Rate > 60; Glucose Random 111 mg/dL (60-115); Sodium 141 mmol/L (135-145); Total Protein 7.2 g/dL (6.5-8.0)
[2025-01-01 13:41] LABS: B Type Natriuretic Peptide 549 pg/mL (<100)
[2025-01-01 14:03] LABS: Troponin-I High Sensitivity 159.3 ng/L (<3.5-17.0)
[2025-01-01 14:28] VITALS: BP 114/57; PULSE 60; RESP 22; TEMP 36.5; O2SAT 95
[2025-01-01] MEDS: Furosemide 20 MG/2 ML VIAL IVPUSH (15:43)
[2025-01-01 15:45] VITALS: PULSE 71; RESP 22; O2SAT 95
[2025-01-01] MEDS: Albuterol Sulfate 2.5 MG, Albuterol/Iprat 2.5/0.5MG 3 ML 3 ML INHALE (15:47)
[2025-01-01 16:40] VITALS: BP 154/73; PULSE 80; RESP 18; TEMP 36.5; O2SAT 93
--- NOTE | 2025-01-01 16:40 | P.HPHOSP_ITS ---
History of Present Illness Date of Service: 01/01/25 Attending physician on admission: Dustin Alonso Chief Complaint: Abnormal blood workup Aylin Jauregui is 79 years old woman with past medical history significant for severe COPD on home oxygen 6 L/min, pacemaker implantation, HFpEF and paroxysmal atrial fibrillation on Eliquis presents to the emergency department after she was called from her occupational therapy specialist's office to notify she about normal blood workup today (elevated troponin). The patient denied any chest pain, worsening shortness of breath, nausea or vomiting. In the ED, she was initially found with hypotension (possible use of incorrect BP cuff). Most recent one is 154/73. The other vital signs. Blood workup including CBC and CMP are basically unremarkable. Troponin is elevated 153.3 --> 159.3. BNP is 477 --> 549. ECG showed paced rhythm, HR 60 bpm. CXR showed cardiomegaly without acute cardiopulmonary changes. ED tx: Lasix 20 mg IV, albuterol 2.5 mg neb. Review of Systems 2 Review of Systems: All 12 systems were reviewed and normal except as noted in HPI. [facility] Medical History (Updated 01/01/25 @ 15:45 by Lefty Tapia MD) Pulmonary hypertension Chronic respiratory failure Bronchopneumonia Osteoporosis Cardiac pacemaker in situ HTN (hypertension) PAF (paroxysmal atrial fibrillation) COPD (chronic obstructive pulmonary disease) Chronic anticoagulation Renal failure Rhabdomyolysis Pneumonia Hyponatremia Hyperlipemia SSS (sick sinus syndrome) Meniere disease Sleep apnea Family History Father Lung cancer Mother COPD (chronic obstructive pulmonary disease) Surgical History History of permanent cardiac pacemaker placement History of endoscopy History of hysterectomy History of cardiac cath Social History Household Members: Spouse Housing: House Do you presently have visiting nurse or other home services: Yes (VNA and OT) Alcohol intake: never Patient Tobacco Use Status: Former Tobacco user Years Smoked: 30 +/- e-Cigarette/Vaping Use: Never Used Second Hand Smoke Exposure: No Advance Directives: Yes Advance Directives on File: Yes Advance Directives Date on File: 02/06/23 Do you have a plan to hurt others: No Plan service: No Current occupational status: retired Cognitive needs: No Hearing needs: Yes Vision needs: Yes Meds Allergies Allergy/AdvReac Type Severity Reaction Status Date / Time gemifloxacin Allergy Unknown Rash Verified 01/01/25 13:26 montelukast [Singulair] Allergy Unknown mood swings Verified 01/01/25 13:26 ARB-Angiotensin Receptor AdvReac Intermediate Cough Verified 01/01/25 13:26 Antagonist dapagliflozin [From [facility]] AdvReac Intermediate polyuria Verified 01/01/25 13:26 lisinopril AdvReac Intermediate Cough Verified 01/01/25 13:26 Active Medications: Current Medications Acetaminophen (Acetaminophen 325 Mg Tablet) 975 mg PO Q6H PRN PRN Reason: Pain, Mild 1-3,fever,headache Calcium Carbonate (Calcium Carbonate 750 Mg Tab.Chew) 750 mg PO Q4H PRN PRN Reason: Heartburn Magnesium Hydroxide (Milk Of Magnesia 30 Ml Oral.Susp) 30 ml PO DAILY PRN PRN Reason: Constipation Melatonin (Melatonin 3 Mg Tablet) 6 mg PO BEDTIME PRN PRN Reason: Insomnia Sodium Chloride (0.9 % Sodium Chloride Flush 3 Ml Syringe) 3 ml IVFLUSH [facility] Home Medications ?Medication ?Instructions ?Recorded ?Confirmed ?Last Taken ?Type calcium carbonate (Calcium 600) 600 mg PO BID 07/16/22 01/01/25 12/31/24 History magnesium 200 mg tablet 400 mg PO BEDTIME 07/16/22 01/01/25 12/31/24 History peg 400-propylene glycol (PF) 0.4 1 drp ophthalmic (eye) BID 01/31/23 01/01/25 12/31/24 History %-0.3 % eye drops in a dropperette (Systane (PF)) acetaminophen 325 mg tablet 650 mg PO Q6H PRN Pain 03/15/23 01/01/25 Unknown History ferrous sulfate 324 mg (65 mg 324 mg PO TUTHSA 03/15/23 01/01/25 12/31/24 History iron) tablet,delayed release cholecalciferol (vitamin D3) 50 50 mcg PO DAILY 01/01/25 01/01/25 12/31/24 History mcg (2,000 unit) tablet (Vitamin D3) multivitamin with minerals-folic 1 tab PO DAILY 01/01/25 01/01/25 12/31/24 History acid 80 mcg chewable tablet (Centrum Adult 50 Plus) omeprazole 20 mg capsule,delayed 20 mg PO DAILY@0630 PRN Acid Reflux 01/01/25 01/01/25 12/31/24 History release Physical Exam 2 Vital Signs and Narrative: Vital Signs: Last Vital Signs Temp 97.7 F 01/01/25 14:28 Pulse 71 01/01/25 15:45 Resp 22 H 01/01/25 15:45 BP 114/57 L 01/01/25 14:28 Pulse Ox 95 01/01/25 14:28 O2 Del Method Nasal Cannula 01/01/25 14:28 O2 Flow Rate 6 01/01/25 14:28 Oxygen Flow Rate 6 01/01/25 13:16 BMI result Body Mass Index 21.5 Constitutional - Awake and Alert, No apparent distress. On nasal cannula. HEENT - PER, EOMI Heart - RRR, No murmurs. Lungs - Normal lung expansion, Normal respiratory effort, No respiratory distress, CTA bilaterally Abdomen - NT / ND; +BS; No rebound or guarding Extremities - no calf tenderness bilaterally, no swelling Musculoskeletal - Normal inspection, normal ROM Skin - Warm/Dry Neurological - Alert & oriented x3. No focal weakness. Normal speech. Psychological - Appropriate affect Results Labs 01/01/25 12:58 01/01/25 12:58 Labs: Laboratory Results - last 24 hr 01/01/25 12:58 MCV 97.3 MCH 32.7 MCHC 33.6 RDW 13.7 Plt Count 260 MPV 9.3 L Immature Gran % (Auto) 0.4 Neut % (Auto) 82.0 H Lymph % (Auto) 12.1 L [place] % (Auto) 4.7 Eos % (Auto) 0.3 Baso % (Auto) 0.5 Lymph # (Auto) 1.1 L [place] # (Auto) 0.4 Eos # (Auto) 0.0 Baso # (Auto) 0.1 Abs Immat Gran (auto) 0.04 H Absolute Neuts (auto) 7.5 Absolute Nucleated RBC 0.000 Nucleated RBC % (auto) 0.0 PT 19.1 H INR 1.7 H APTT 38.5 H Anion Gap 13 Estim Creat Clear Calc 37.4 Estimated GFR > 60 Random Glucose 111 Calcium 9.5 Total Bilirubin 0.8 AST 30 ALT 13 Alkaline Phosphatase 50 Troponin I High Sens 159.3 H* B-Natriuretic Peptide 549 H Total Protein 7.2 Albumin 4.3 Imaging Radiologist's Impressions: Impressions Chest X-Ray 01/01/25 14:56 IMPRESSION: Cardiomegaly. No acute cardiopulmonary abnormality. Electronically signed by: Jerry Giordano MD 01/01/2025 03:19 PM EDT RP Assessment and Plan (1) Elevated troponin I level: Status: Acute (2) PAF (paroxysmal atrial fibrillation): Status: Acute Plan Aylin Jauregui is 79 y/o woman admitted with: * Elevated troponin, chronic elevation (better than previous ones). Asymptomatic. D-dimer negative. ECG and CXR negative. Observation. Recheck troponin in 8 hours (9 pm). Cardiology consult. * Elevated BNP. Clear lungs. CXR negative. Check TTE. Last TTE January 2024 - EF 60-75%, mild pulmonary hypertension, moderate MR. Continue furosemide 20 mg PO bid. * Advanced COPD. Continue supplemental O2 (baseline 6L/min). Continue home inhalers. * Hypothyroidism. Continue levothyroxine. * Paroxysmal atrial fibrillation. Continue Eliquis. * Permanent pacemaker. ECG showing paced rhythm. * Hyperlipidemia. Continue statin. DVT prophylaxis: On Eliquis. Code status: Full Quality Stroke Does the patient have a stroke diagnosis?: No VTE Prior VTE?: No VTE Risk Level:: Medical - moderate - high VTE Device Contraindication: N/A - Device Ordered VTE Drug Contraindication: Treatment Not Indicated
--- NOTE | 2025-01-01 16:49 | PHA.MEDREC ---
Addendum entered by Madeleine Dooley rut 01/01/25 17:02: reviewed Original Note: Pharmacy Consult ? Medication Reconciliation Pharmacy has completed the medication reconciliation. Spoke to patient to confirm med list. Patient was very sweet and funny. she was able to name all of her medications. Patient states she hasn't started taking Azithromycin 250 mg, and Prednisone 20 mg because is was just prescribed today. Patient last had her medications yesterday.
--- NOTE | 2025-01-01 16:57 | PC.NURSE ---
patient states she is on oxygen 6L at baseline, able to stand with one assist to use commode. 400mL urine output. resting quietly in room, no obvious signs/symptoms of distress. call dasilva within reach
[2025-01-01 18:32] VITALS: BP 111/48; PULSE 77; RESP 22; TEMP 36.3; O2SAT 91
[2025-01-01] MEDS: Calcium Oyster Shell Elemental 500 MG TABLET PO (21:14)
[2025-01-01] MEDS: Magnesium Oxide 400 MG TABLET PO (21:14)
[2025-01-01 21:15] VITALS: BP 120/48
[2025-01-01] MEDS: Furosemide 20 MG TABLET PO (21:15)
[2025-01-01] MEDS: Apixaban 5 MG TABLET PO (21:17)
[2025-01-01 21:43] LABS: Troponin-I High Sensitivity 156.6 ng/L (<3.5-17.0)
[2025-01-01] MEDS: Pravastatin Sodium 20 MG TABLET PO (22:49)
[2025-01-02] MEDS: 0.9 % Sodium Chloride Flush 3 ML SYRINGE IVFLUSH (00:49)
[2025-01-02] MEDS: Acetaminophen 325 MG TABLET 975 MG PO (00:51)
[2025-01-02 04:52] LABS: MANUAL DIFF FLAG NO
[2025-01-02 04:55] LABS: Basophils Percent Auto 0.5 % (0-2); Eosinophils Absolute Auto 0.1 X10*3/uL (0.0-0.4); Eosinophils Percent Auto 0.8 % (0-4); Hematocrit 35.6 % (37.0-47.0); Hemoglobin 11.7 g/dl (12.0-16.0); Imm Gran Abs Auto 0.02 X10*3/uL (0.00-0.03); Imm Gran Pct Auto 0.3 % (0.0-0.4); Lymphocytes Absolute Auto 1.3 X10*3/uL (1.2-4.9); Lymphocytes Percent Auto 16.5 % (20-40); Mean Corpuscular HGB Conc 32.9 g/dl (31.0-35.0); Mean Corpuscular Hemoglobin 32.1 pg (27.0-33.0); Mean Corpuscular Volume 97.5 fL (80.0-98.0); Mean Platelet Volume 10.1 fL (9.4-12.3); Monocytes Absolute Auto 0.6 X10*3/uL (0.1-1.2); Monocytes Percent Auto 8.3 % (2-11); Neutrophils Absolute Auto 5.7 x10*3/uL (2.0-8.3); Neutrophils Percent Auto 73.6 % (45-73); Platelet Count 243 X10*3/uL (160-400); Red Blood Count 3.65 X10*6/uL (4.20-5.50); Red Cell Distribution Width 13.5 % (11.0-16.0); White Blood Count 7.7 X10*3/uL (4.8-10.8)
[2025-01-02 05:11] LABS: Anion Gap 13 (12-20); Blood Urea Nitrogen 16 mg/dL (9-16); Calcium 8.8 mg/dL (8.4-10.2); Carbon Dioxide 27 mmol/L (22-29); Chloride 105 mmol/L (96-108); Creatinine Clr Calc Pharmacy 40.7; Estimated Glomerular Filt Rate > 60; Glucose Random 100 mg/dL (60-115); Magnesium 2.1 mg/dL (1.6-2.6); Potassium 3.2 mmol/L (3.3-5.1); Sodium 142 mmol/L (135-145)
[2025-01-02 05:13] VITALS: BP 132/69; PULSE 66; RESP 20; TEMP 36.4; O2SAT 90
[2025-01-02] MEDS: Levothyroxine Sodium 25 MCG TABLET PO (05:15)
[2025-01-02 08:29] VITALS: BP 116/62; PULSE 60; RESP 16; TEMP 36.5; O2SAT 96
[2025-01-02] MEDS: Calcium Oyster Shell Elemental 500 MG TABLET PO (08:30)
[2025-01-02] MEDS: Potassium Chloride ER 20 MEQ TAB.ER.PRT PO (08:30)
[2025-01-02] MEDS: Loratadine 10 MG TABLET PO (08:30)
[2025-01-02 08:31] VITALS: BP 116/62
[2025-01-02] MEDS: Multivitamin TABLET 1 TAB PO (08:31)
[2025-01-02] MEDS: Furosemide 20 MG TABLET PO (08:31)
[2025-01-02] MEDS: Cholecalciferol (Vitamin D3) 25 MCG TABLET 50 MCG PO (08:31)
[2025-01-02] MEDS: Apixaban 5 MG TABLET PO (08:31)
[2025-01-02] MEDS: Ferrous Sulfate 324 MG TABLET.DR PO (08:36)
[2025-01-02] MEDS: Artificial Tears 15 ML DROPS 1 DROP EYE-BOTH (10:38)
[2025-01-02] MEDS: Azelastine HCl Nasal 137 MCG/Spray 30 ML 2 SPRAY NOSTRIL-B (10:38)
--- NOTE | 2025-01-02 10:39 | P.CONCA_ITS ---
History of Present Illness History of Present Illness Date of Service: 01/02/25 Requesting physician: Ben Frias Consult reason: troponin elevation Chief complaint: Elevated troponin Narrative: I was consulted to see Aylin in cardiology consultation today because of elevated cardiac biomarkers including elevated BNP, higher than her baseline. Also elevated troponins but flat. Patient was seen by Pulmonary yesterday and was having increased shortness of breath and higher requirements of oxygen. Despite the higher oxygen at home it seems lifetime of the notes she was still hypoxic and when she came to the office she walked into the office and was hypoxemic and then was put on regular oxygen and her oxygen saturation improved. It seems like she was hypoxic for some period time. She then had blood work done because of possible cardiac etiology. Although chest x-ray and clinical exam he is not suggestive of decompensated congestive heart failure. She was given a dose of Lasix. Put on oxygen 6 L. There was concern for question pulmonary hypertension. She has been admitted although her troponins are flat at this point time. The no new EKG changes, she has underlying paced rhythm. Review of Systems 2 Constitutional: Constitutional: Denies body ache(s), Denies chills, Denies fever(s) and Reports weakness Cardiovascular: Cardiovascular: Denies chest pain, Denies lightheadedness, Denies Loss of Consciousness, Denies palpitations and Reports dyspnea on exertion Respiratory: Respiratory: Denies cough, Reports dyspnea on exertion and Denies wheezing Gastrointestinal: Gastrointestinal: Reports no additional gastrointestinal complaints Genitourinary: Genitourinary: Reports no additional female genitourinary complaints Musculoskeletal: Musculoskeletal: Reports no additional musculoskeletal complaints Neurologic: Reports system reviewed and no additional complaints, except as documented and Reports weakness Endocrine: Endocrine: Reports no additional endocrine complaints and Denies palpitations Allergic/Immunologic: Allergic/Immunologic: Denies wheezing [facility] Past Medical History Medical History Pulmonary hypertension Chronic respiratory failure Bronchopneumonia Osteoporosis Cardiac pacemaker in situ HTN (hypertension) PAF (paroxysmal atrial fibrillation) COPD (chronic obstructive pulmonary disease) Chronic anticoagulation Renal failure Rhabdomyolysis Pneumonia Hyponatremia Hyperlipemia SSS (sick sinus syndrome) Meniere disease Sleep apnea Family History Family History Father Lung cancer Mother COPD (chronic obstructive pulmonary disease) Surgical History Surgical History History of permanent cardiac pacemaker placement History of endoscopy History of hysterectomy History of cardiac cath Social History Social History Household Members: Spouse Housing: House Do you presently have visiting nurse or other home services: Yes (VNA and OT) Alcohol intake: never Patient Tobacco Use Status: Former Tobacco user Years Smoked: 30 +/- Smoked in Last 30 Days: No e-Cigarette/Vaping Use: Never Used Second Hand Smoke Exposure: No Use of substances other than those prescribed or required for medical reasons: No Advance Directives: Yes Advance Directives on File: Yes Advance Directives Date on File: 02/06/23 Do you have a plan to hurt others: No Plan service: No Current occupational status: retired Cognitive needs: No Hearing needs: Yes Vision needs: Yes Meds Allergies Allergy/AdvReac Type Severity Reaction Status Date / Time gemifloxacin Allergy Unknown Rash Verified 01/01/25 13:26 montelukast [Singulair] Allergy Unknown mood swings Verified 01/01/25 13:26 ARB-Angiotensin Receptor AdvReac Intermediate Cough Verified 01/01/25 13:26 Antagonist dapagliflozin [From Farga] AdvReac Intermediate polyuria Verified 01/01/25 13:26 lisinopril AdvReac Intermediate Cough Verified 01/01/25 13:26 Active Medications: Current Medications Acetaminophen (Acetaminophen 325 Mg Tablet) 975 mg PO Q6H PRN PRN Reason: Pain, Mild 1-3,fever,headache Last Admin: 01/02/25 00:51 Dose: 975 mg Albuterol Sulfate (Albuterol Sulfate (0.042%) 1.25 Mg/3 Ml Vial.Neb) 0.63 mg INHALE Q4H PRN PRN Reason: for wheezing Albuterol Sulfate (Albuterol Sulfate 90 Mcg 8 Gm Inhaler) 2 puff INHALE QID PRN PRN Reason: Shortness Of Breath Or Wheezing Apixaban (Apixaban 5 Mg Tablet) 5 mg PO BID [facility] Last Admin: 01/02/25 08:31 Dose: 5 mg Artificial Tears (Artificial Tears 15 Ml Drops) 1 drop EYE-BOTH BID [facility] Last Admin: 01/02/25 10:38 Dose: 1 drop Azelastine HCl (Azelastine Hcl Nasal 137 Mcg/[place] 30 Ml) 2 spray NOSTRIL-B BID [facility] Last Admin: 01/02/25 10:38 Dose: 2 spray Calcium Carbonate (Calcium Carbonate 750 Mg Tab.Chew) 750 mg PO Q4H PRN PRN Reason: Heartburn Calcium Carbonate (Calcium Oyster Shell Elemental 500 Mg Tablet) 500 mg PO BID [facility] Last Admin: 01/02/25 08:30 Dose: 500 mg Ferrous Sulfate (Ferrous Sulfate 324 Mg Tablet.) 324 mg PO TUTHSA [facility] Last Admin: 01/02/25 08:36 Dose: 324 mg Fluticasone/Umeclidinium/Vilanterol (Fluticasone/Umeclidinium/Vilanterol 200/62.5/25 Blst.W.Dev) 1 puff INHALE RDAILY [facility] Furosemide (Furosemide 20 Mg Tablet) 20 mg PO BID [facility]; Protocol Last Admin: 01/02/25 08:31 Dose: 20 mg Levothyroxine Sodium (Levothyroxine Sodium 25 Mcg Tablet) 25 mcg PO DAILY@0600 [facility] Last Admin: 01/02/25 05:15 Dose: 25 mcg Loratadine (Loratadine 10 Mg Tablet) 10 mg PO DAILY [facility] Last Admin: 01/02/25 08:30 Dose: 10 mg Magnesium Hydroxide (Milk Of Magnesia 30 Ml Oral.Susp) 30 ml PO DAILY PRN PRN Reason: Constipation Magnesium Oxide (Magnesium Oxide 400 Mg Tablet) 400 mg PO BEDTIME [facility] Last Admin: 01/01/25 21:14 Dose: 400 mg Melatonin (Melatonin 3 Mg Tablet) 6 mg PO BEDTIME PRN PRN Reason: Insomnia Multivitamins/Vitamin C (Multivitamin Tablet) 1 tab PO DAILY [facility] Last Admin: 01/02/25 08:31 Dose: 1 tab Omeprazole (Omeprazole 20 Mg Capsule.) 20 mg PO DAILY@0630 PRN PRN Reason: Acid Reflux Potassium Chloride (Potassium Chloride Er 20 Meq Tab.Er.Prt) 20 meq PO DAILY [facility] Last Admin: 01/02/25 08:30 Dose: 20 meq Pravastatin Sodium (Pravastatin Sodium 20 Mg Tablet) 20 mg PO BEDTIME [facility] Last Admin: 01/01/25 22:49 Dose: 20 mg Sodium Chloride (0.9 % Sodium Chloride Flush 3 Ml Syringe) 3 ml IVFLUSH QSHIFT [facility] Last Admin: 01/02/25 08:07 Dose: Not Given Vitamin D (Cholecalciferol (Vitamin D3) 25 Mcg Tablet) 50 mcg PO DAILY [facility] Last Admin: 01/02/25 08:31 Dose: 50 mcg Home Medications ?Medication ?Instructions ?Recorded ?Confirmed ?Last Taken ?Type calcium carbonate (Calcium 600) 600 mg PO BID 07/16/22 01/01/25 12/31/24 History magnesium 200 mg tablet 400 mg PO BEDTIME 07/16/22 01/01/25 12/31/24 History peg 400-propylene glycol (PF) 0.4 1 drp ophthalmic (eye) BID 01/31/23 01/01/25 12/31/24 History %-0.3 % eye drops in a dropperette (Systane (PF)) acetaminophen 325 mg tablet 650 mg PO Q6H PRN Pain 03/15/23 01/01/25 Unknown History ferrous sulfate 324 mg (65 mg 324 mg PO TUTHSA 03/15/23 01/01/25 12/31/24 History iron) tablet,delayed release cholecalciferol (vitamin D3) 50 50 mcg PO DAILY 01/01/25 01/01/25 12/31/24 History mcg (2,000 unit) tablet (Vitamin D3) multivitamin with minerals-folic 1 tab PO DAILY 01/01/25 01/01/25 12/31/24 History acid 80 mcg chewable tablet (Centrum Adult 50 Plus) omeprazole 20 mg capsule,delayed 20 mg PO DAILY@0630 PRN Acid Reflux 01/01/25 01/01/25 12/31/24 History release Physical Exam 2 Vital Signs: Vital Signs: Last Vital Signs Temp 97.7 F 01/02/25 08:29 Pulse 60 01/02/25 08:29 Resp 16 01/02/25 08:29 BP 116/62 01/02/25 08:31 Pulse Ox 96 01/02/25 08:29 O2 Del Method Nasal Cannula 01/02/25 08:29 O2 Flow Rate 4 01/02/25 08:29 Oxygen Flow Rate 6 01/01/25 13:16 BMI result Body Mass Index 21.5 Const: General: cooperative, comfortable, alert and awake Nutritional Appearance: underweight Orientation/consciousness: patient oriented x3 HEENT: Head: Yes normocephalic and Yes atraumatic Neck: Neck: Yes trachea midline, Yes supple and Yes no JVD Resp: Effort & Inspection: normal respiratory effort Auscultation: no rales, no wheezes and diminished lung sounds Cardio: Jugular venous distension: no JVD Rate: regular rate Rhythm: r egular rhythm Heart sounds: S1 normal heart sound present, S2 normal heart sound present, no click, no gallops and no murmurs GI: Auscultation: normal bowel sounds Skin: General skin exam: no rashes or lesions noted Neuro: General: patient oriented x3 and no focal motor deficits Extrem: General: Yes no clubbing, cyanosis or edema Objective Labs and Meds 01/02/25 04:04 01/02/25 04:04 Lab results: Laboratory Results - last 24 hr 01/01/25 01/01/25 01/02/25 12:58 20:57 04:04 WBC 9.2 7.7 RBC 4.01 L 3.65 L Hgb 13.1 11.7 L Hct 39.0 35.6 L MCV 97.3 97.5 MCH 32.7 32.1 MCHC 33.6 32.9 RDW 13.7 13.5 Plt Count 260 243 MPV 9.3 L 10.1 Immature Gran % (Auto) 0.4 0.3 Neut % (Auto) 82.0 H 73.6 H Lymph % (Auto) 12.1 L 16.5 L [place] % (Auto) 4.7 8.3 Eos % (Auto) 0.3 0.8 Baso % (Auto) 0.5 0.5 Lymph # (Auto) 1.1 L 1.3 [place] # (Auto) 0.4 0.6 Eos # (Auto) 0.0 0.1 Baso # (Auto) 0.1 0.0 Abs Immat Gran (auto) 0.04 H 0.02 Absolute Neuts (auto) 7.5 5.7 Absolute Nucleated RBC 0.000 0.000 Nucleated RBC % (auto) 0.0 0.0 PT 19.1 H INR 1.7 H APTT 38.5 H Sodium 141 142 Potassium 4.0 3.2 L Chloride 103 105 Carbon Dioxide 29 27 Anion Gap 13 13 BUN 18 H 16 Creatinine 0.86 0.79 Estim Creat Clear Calc 37.4 40.7 Estimated GFR > 60 > 60 Random Glucose 111 100 Calcium 9.5 8.8 D Magnesium 2.1 Total Bilirubin 0.8 AST 30 ALT 13 Alkaline Phosphatase 50 Troponin I High Sens 159.3 H* 156.6 H* B-Natriuretic Peptide 549 H Total Protein 7.2 Albumin 4.3 Imaging Radiologist's impression: Impressions Chest X-Ray 01/01/25 14:56 IMPRESSION: Cardiomegaly. No acute cardiopulmonary abnormality. Electronically signed by: Jerry Giordano MD 01/01/2025 03:19 PM EDT RP Assessment and Plan (1) Elevation of cardiac enzymes: Status: Acute Elevated cardiac markers in this elderly woman who has very advanced COPD, oxygen requiring with chronic respiratory failure with worsening hypoxemia. Unclear why she is worsening hypoxemia could be reduced pulmonary mechanics related to respiratory muscle weakness/thoracic cage abnormality with dorsal kyphoscoliosis in the setting of underlying severe COPD. Elevated cardiac myocardial most likely related to her hypoxemia. Patient could have underlying coronary artery disease although more likely that this is from RV demand related to hypoxemic pulmonary vaso constriction. Elevated BNP also possibly related to the same. It is possible that she could also worsening pulmonary hypertension/cor pulmonale related to her severe underlying pulmonary parenchymal disease. Overall prognosis penitentiary is grim. Should consider more advanced supportive/palliative care as outpatient. Continue oxygen replacement therapy. Clinically does not appear to be in heart failure. Will continue her usual diuretic dose as outpatient. Currently on full oral anticoagulation because of prior history of atrial fibrillation will continue the same. From cardiac perspective patient appears to be stable currently and can be discharged home. Will sign of the case Procedures Date of Service Date of Service: 01/02/25
--- NOTE | 2025-01-02 10:55 | PM.DS ---
DS: Providers Provider Date of Service: 01/02/25 Date of admission: 01/01/25 15:45 Date of discharge: 01/02/25 Primary care physician: Freida Yarbrough MD Consults: 01/01/25 17:16 Consult to Cardiology Routine Consulting Provider: [facility] Reason for consultation: sent from pulm office for elevated troponin Has provider been notified: No DS: Diagnosis Discharge Diagnosis (1) Elevation of cardiac enzymes: Status: Acute DS: Summary Hospital Course Hospital Course: i nit 79 years old woman with past medical history significant for severe COPD on home oxygen 6 L/min, pacemaker implantation, HFpEF and paroxysmal atrial fibrillation on Eliquis presents to the emergency department after 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 The patient denied any chest pain, worsening shortness of breath, nausea or vomiting. In the ED, she was initially found with hypotension (possible use of incorrect BP cuff). Most recent one is 154/73. The other vital signs. Blood workup including CBC and CMP are basically unremarkable. Troponin is elevated 153.3 --> 159.3. BNP is 477 --> 549. ECG showed paced rhythm, HR 60 bpm. CXR showed cardiomegaly without acute cardiopulmonary changes. ED tx: Lasix 20 mg IV, albuterol 2.5 mg neb. hospital course: Patient was observed for elevated troponin. These appear to be chronic and flat. Was seen by Cardiology who felt elevated troponin likely related to chronic ischemia, patient could very well have underlying coronary disease but does not appear to be having acute coronary syndrome. Does not appear to be in acute heart failure and recommendations were to continue baseline diuretic Lasix 20 mg b.i.d.. Overall patient's prognosis is guarded due to chronic hypoxic respiratory failure from end-stage COPD. For hypothyroid was continued on levothyroxine. For paroxysmal AFib was continued on Eliquis. Patient states that she feels close to baseline and will be discharged home. Time Attestation Discharge Coordination Time (in mins): 35 Quality: Safe Use of Opioids Does Pt have an Active Cancer Diagnosis on the Problem List?: No Quality: Stroke Does the patient have a stroke diagnosis?: No Physical Exam Vital Signs: Vital Signs: Last Vital Signs Temp 97.7 F 01/02/25 08:29 Pulse 60 01/02/25 08:29 Resp 16 01/02/25 08:29 BP 116/62 01/02/25 08:31 Pulse Ox 96 01/02/25 08:29 O2 Del Method Nasal Cannula 01/02/25 08:29 O2 Flow Rate 4 01/02/25 08:29 Oxygen Flow Rate 6 01/01/25 13:16 BMI result Body Mass Index 21.5 General: AO X 3, no acute distress, frail appearing Resp: diminsihed bilateral, no accessory muscles used CVS: S1,S2,RRR GI: soft, non tender, non distended Neuro: motor grossly intact, alert Psych: appropriate affect, appropriate insight DS: Data Data Completed and Pending Completed studies during hospitalization [Text1]: Procedures Excision of Cecum, Via Natural or Artificial Opening Endoscopic, Diagnostic (01/31/23) Excision of Esophagogastric Junction, Via Natural or Artificial Opening Endoscopic, Diagnostic (01/31/23) Excision of Transverse Colon, Via Natural or Artificial Opening Endoscopic, Diagnostic (01/31/23) Insertion of Pacemaker Lead into Right Atrium, Percutaneous Approach (03/15/23) Transfusion of Nonautologous Red Blood Cells into Peripheral Vein, Percutaneous Approach (01/31/23) Labs on day of discharge: Laboratory Results - last 24 hr 01/01/25 01/01/25 01/02/25 12:58 20:57 04:04 WBC 9.2 7.7 RBC 4.01 L 3.65 L Hgb 13.1 11.7 L Hct 39.0 35.6 L MCV 97.3 97.5 MCH 32.7 32.1 MCHC 33.6 32.9 RDW 13.7 13.5 Plt Count 260 243 MPV 9.3 L 10.1 Immature Gran % (Auto) 0.4 0.3 Neut % (Auto) 82.0 H 73.6 H Lymph % (Auto) 12.1 L 16.5 L [place] % (Auto) 4.7 8.3 Eos % (Auto) 0.3 0.8 Baso % (Auto) 0.5 0.5 Lymph # (Auto) 1.1 L 1.3 [place] # (Auto) 0.4 0.6 Eos # (Auto) 0.0 0.1 Baso # (Auto) 0.1 0.0 Abs Immat Gran (auto) 0.04 H 0.02 Absolute Neuts (auto) 7.5 5.7 Absolute Nucleated RBC 0.000 0.000 Nucleated RBC % (auto) 0.0 0.0 PT 19.1 H INR 1.7 H APTT 38.5 H Sodium 141 142 Potassium 4.0 3.2 L Chloride 103 105 Carbon Dioxide 29 27 Anion Gap 13 13 BUN 18 H 16 Creatinine 0.86 0.79 Estim Creat Clear Calc 37.4 40.7 Estimated GFR > 60 > 60 Random Glucose 111 100 Calcium 9.5 8.8 D Magnesium 2.1 Total Bilirubin 0.8 AST 30 ALT 13 Alkaline Phosphatase 50 Troponin I High Sens 159.3 H* 156.6 H* B-Natriuretic Peptide 549 H Total Protein 7.2 Albumin 4.3 Discharge Plan Discharge Anticipated Discharge Date/Time: 01/02/25 10:53 Patient Disposition: Home, Self-Care Discharge Diagnosis: copd, elevated trop Referrals: Freida Yarbrough MD [Primary Care Provider] - 1 Week Discharge Medications: Continued albuterol sulfate 90 mcg/actuation HFA aerosol inhaler 2 puff inhalation QID PRN (Reason: Shortness Of Breath Or Wheezing) Qty: 8.5 2RF albuterol sulfate 0.63 mg/3 mL solution for nebulization 0.63 mg inhalation Q4-6H PRN (Reason: for wheezing) Qty: 180 3RF pravastatin 20 mg tablet 20 mg PO BEDTIME Qty: 90 3RF Trelegy Ellipta 200-62.5-25 mcg blister with device 1 inh inhalation DAILY 30 Days Qty: 60 11RF calcium carbonate [Calcium 600] 600 mg calcium (1,500 mg) Tablet 600 mg PO BID magnesium 200 mg Tablet 400 mg PO BEDTIME Systane (PF) 0.4-0.3 % Dropperette 1 drp OPHTHALMIC (EYE) BID Rx Instructions: instill 1 drop into both eyes acetaminophen 325 mg Tablet 650 mg PO Q6H PRN (Reason: Pain) ferrous sulfate 324 mg (65 mg iron) tablet,delayed release (DR/EC) 324 mg PO TUTHSA Centrum Adult 50 Plus 80 mcg Tablet,Chewable 1 tab PO DAILY omeprazole 20 mg capsule,delayed release(DR/EC) 20 mg PO DAILY@0630 PRN (Reason: Acid Reflux) cholecalciferol (vitamin D3) [Vitamin D3] 50 mcg (2,000 unit) Tablet 50 mcg PO DAILY Eliquis 5 mg tablet 5 mg PO BID Qty: 180 3RF azelastine 137 mcg (0.1 %) spray,non-aerosol 2 spray intranasal BID Qty: 30 4RF Rx Instructions: administer into each nostril cetirizine [Zyrtec] 10 mg tablet 10 mg PO DAILY Qty: 90 3RF furosemide 20 mg tablet 20 mg PO BID Qty: 180 3RF levothyroxine 25 mcg tablet 25 mcg PO DAILY@0600 Qty: 90 3RF potassium chloride 20 mEq tablet extended release 20 meq PO DAILY Qty: 90 3RF Discharge Orders: Discharge Order (Routine); Ordered 01/02/25 Ordered By: Ben Frias Diet: Advance to usual diet Activity on Discharge: As tolerated Stand Alone Forms: Patient Portal Discharge page Print Language: Barbadian Care Plan Goals: manage end stage copd Health Concerns: end stage copd Plan of Treatment: continue oxygen supplementation, pulm follow up Assessment: see above
[2025-01-02] MEDS: Fluticasone/Umeclidinium/Vilanterol 200/62.5/25 BLST.W.DEV 1 PUFF INHALE (10:56)
[2025-01-02 11:00] VITALS: PULSE 63; RESP 20; O2SAT 94
--- NOTE | 2025-01-02 11:08 | MHC.CM.PN ---
Peña 01/02/25, Pt lives with her , she does not have home health services, for DME, she has home O2 from [employer], a nebulizer, a walker (she uses outdoors only). can transport her home at [place]. DCP: home, self care, CM to follow for DC needs.
[2025-01-02 12:46] VITALS: BP 140/72; PULSE 60; RESP 20; O2SAT 95
[2025-01-02 14:07] VITALS: BP 157/71; PULSE 60; RESP 16; TEMP 36.5; O2SAT 90
== END 2025-01-02 13:04 | disposition home or self-care (01) ==
LOC: HO.ED 15:36 → HO.EDOVER 16:38
PROVIDERS: Physician Assistant; Admitting Provider Internal Medicine; Emergency Provider Emergency Medicine Emergency Medical Services; PCP Internal Medicine; Visit Provider Internal Medicine
DX: J44.9 Chronic obstructive pulmonary disease, unspecified (principal); R74.8 Abnormal levels of other serum enzymes; I11.0 Hypertensive heart disease with heart failure; I50.30 Unspecified diastolic (congestive) heart failure; R07.9 Chest pain, unspecified; R79.89 Other specified abnormal findings of blood chemistry; R09.02 Hypoxemia; I48.0 Paroxysmal atrial fibrillation; Z99.81 Dependence on supplemental oxygen; Z95.0 Presence of cardiac pacemaker; Z79.01 Long term (current) use of anticoagulants; Z79.899 Other long term (current) drug therapy
CPT/HCPCS: 36415; 71045; 71046; 80048; 80053; 82103; 82785; 82803; 83735; 83880; 84484; 85025; 85379; 85610; 85652; 85730; 93005; 94640; 96374; 99222; 99285; J1938

== ENCOUNTER → 2025-01-01 12:47 | Outpatient (BNV) | payer MEDICARE, SELFPAY | PROVIDERS: Admitting Provider Internal Medicine; Emergency Provider Emergency Medicine Emergency Medical Services; PCP Internal Medicine; Visit Provider Internal Medicine Cardiovascular Disease | DX: R94.31 Abnormal electrocardiogram [ECG] [EKG] (principal); Z95.0 Presence of cardiac pacemaker | CPT/HCPCS: 93010 ==

== ENCOUNTER → 2025-01-01 15:45 | Outpatient (BNV) | payer MEDICARE, SELFPAY | PROVIDERS: Admitting Provider Internal Medicine; Emergency Provider Emergency Medicine Emergency Medical Services; PCP Internal Medicine; Visit Provider Internal Medicine | DX: R79.89 Other specified abnormal findings of blood chemistry (principal); I48.0 Paroxysmal atrial fibrillation | CPT/HCPCS: 99222; 99239 ==

== ENCOUNTER → 2025-01-01 15:45 | Outpatient (BNV) | payer MEDICARE, SELFPAY | PROVIDERS: Admitting Provider Internal Medicine; Emergency Provider Emergency Medicine Emergency Medical Services; PCP Internal Medicine; Visit Provider Internal Medicine Cardiovascular Disease | DX: R74.8 Abnormal levels of other serum enzymes (principal) | CPT/HCPCS: 99222 ==

== ENCOUNTER 2025-01-16 11:52 | Outpatient (AMB) | payer MEDICARE, SELFPAY ==
--- NOTE | 2025-01-16 12:20 | MHC.PC.OV ---
Vital Signs 01/16/25 12:21 Height 5 ft Weight 110 lb BMI 21.5 BP 112/70 Blood Pressure Location Lt brachial Position Sitting Pulse 62 Pulse Source Pulse Oximeter Pulse Oximetry (%) 91 L Oxygen Delivery Method Room Air Intake Visit Reasons: Hospital follow up Allergies gemifloxacin Allergy (Unknown, Verified 01/01/25 13:26) Rash montelukast (Singulair) Allergy (Unknown, Verified 01/01/25 13:26) mood swings ARB-Angiotensin Receptor Antagonist Adverse Reaction (Intermediate, Verified 01/01/25 13:26) Cough dapagliflozin (From [facility]) Adverse Reaction (Intermediate, Verified 01/01/25 13:26) polyuria lisinopril Adverse Reaction (Intermediate, Verified 01/01/25 13:26) Cough Medication List - Last Reconciled 01/16/25 by Freida Yarbrough MD acetaminophen 650 mg PO Q6H PRN albuterol sulfate 0.63 mg (3 mL) inhalation Q4-6H PRN albuterol sulfate 90 mcg/actuation 2 puffs inhalation QID PRN apixaban (Eliquis) 5 mg PO BID azelastine 2 sprays intranasal BID azithromycin 250 mg PO 3XW calcium carbonate (Calcium 600) 600 mg PO BID cetirizine (Zyrtec) 10 mg PO DAILY cholecalciferol (vitamin D3) (Vitamin D3) 50 mcg PO DAILY ferrous sulfate 324 mg PO TUTHSA furosemide 20 mg PO BID levothyroxine 25 mcg PO DAILY@0600 magnesium 400 mg PO BEDTIME multivit with min-folic acid 80 mcg (Centrum Adult 50 Plus) 1 tab PO DAILY omeprazole 20 mg PO DAILY@0630 PRN peg 400-propylene glycol (PF) 0.4-0.3 % (Systane (PF)) 1 drp ophthalmic (eye) BID potassium chloride ER 20 mEq PO DAILY pravastatin 20 mg PO BEDTIME prednisone mg PO Trelegy Ellipta 200-62.5-25 mcg (elxzgywgyag-qsocplxgv-plkfitvj) 1 inh inhalation DAILY 30 days NS Tobacco use date assessed: 10/04/24 Dental Screening Dental Screen Date: 09/02/24 HPI Hospital follow up HPI Details Patient presents for the follow-up of hospitalization for 1 day after patient was sent to the ER because of elevated troponin level. Cardiac workup was negative. Patient has been having worsening of hypoxia due to advanced COPD and supplemental oxygen was increased to 6 L. she has been using Trelegy and albuterol as needed. Patient has been on slow taper of prednisone and azithromycin 3 times a week. She is established with pulmonology [facility] Medical History Pulmonary hypertension Chronic respiratory failure Bronchopneumonia Osteoporosis Cardiac pacemaker in situ HTN (hypertension) PAF (paroxysmal atrial fibrillation) COPD (chronic obstructive pulmonary disease) Chronic anticoagulation Renal failure Rhabdomyolysis Pneumonia Hyponatremia Hyperlipemia SSS (sick sinus syndrome) Meniere disease Sleep apnea Surgical History History of permanent cardiac pacemaker placement History of endoscopy History of hysterectomy History of cardiac cath Family History Father Lung cancer Mother COPD (chronic obstructive pulmonary disease) Social History Household Members: Spouse Housing: House Do you presently have visiting nurse or other home services: Yes (VNA and OT) Alcohol intake: never Patient Tobacco Use Status: Former Tobacco user Years Smoked: 30 +/- e-Cigarette/Vaping Use: Never Used Second Hand Smoke Exposure: No Advance Directives Date on File: 02/06/23 service: No Current occupational status: retired Cognitive needs: No Hearing needs: Yes Vision needs: Yes Questionnaire Thrive Questionnaire Date Thrive assessed: 11/22/24 I am a: Patient What is your living situation today?: I have a steady place to live Within the past 12 months, did the food you bought not last and you didn't have the money to get more?: Often true Within the past 12 months, did you worry whether your food would run out before you got money to buy more?: I choose not to answer this question Do you have trouble paying for medicines?: I choose not to answer this question Do you have trouble getting transportation to medical appointments?: I choose not to answer this question Do you have trouble paying your heating and electricity bill?: I choose not to answer this question Do you have trouble taking care of your child, family member or friend?: I choose not to answer this question Do you have trouble with day-to-day activities such as bathing, preparing meals, shopping, managing finances, etc.?: I choose not to answer this question Are you currently unemployed and looking for a job?: I choose not to answer this question Are you interested in more education?: I choose not to answer this question Please select the resources that you would like help with: None Currently or been in a relationship where the following occur: I choose not to answer THRIVE Score: 1 YUDELKA-7 AMB Questionnaire YUDELKA-7 Date YUDELKA - 7 assessed: 10/04/24 Source: Developed by Drs. Jerry Munoz, Karishma Melgar, Joaquin Ariza and colleagues, with an educational gaby from [employer]. Review of Systems Const All systems reviewed & are unremarkable except as noted in HPI and below Eyes Reports no additional complaints ENT Reports no additional complaints Card Reports no additional complaints Resp Reports no additional complaints GI Reports no additional complaints Reports no additional complaints Physical exam (Primary Care) Vital Signs: Last Vital Signs Pulse 62 01/16/25 12:21 BP 112/70 01/16/25 12:21 Pulse Ox 91 L 01/16/25 12:21 Oxygen Delivery Method Room Air 01/16/25 12:21 BMI result Body Mass Index 21.5 Tobacco/Smoking Status: Tobacco use Status Tobacco use date assessed 10/04/24 01/16/25 12:24 Patient Tobacco Use Status Former Tobacco user 01/16/25 12:24 e-Cigarette/Vaping Use Never Used 01/16/25 12:24 Thrive Assessment: Date of Thrive Assessment Date Thrive assessed 11/22/24 01/16/25 12:24 Currently or been in a relationship where the following occur: I choose not to answer Const General: no acute distress HENMT Head: Yes normal to inspection Resp Effort & Inspection: able to speak in complete sentences Auscultation: diminished lung sounds Cardio Rhythm: regular rhythm Heart sounds: S1 normal heart sound present and S2 normal heart sound present GI Inspection: Yes normal to inspection Palpation (GI): Soft to palpation Percussion: Yes normal to percussion Auscultation: normal bowel sounds Extrem General: Yes no clubbing, cyanosis or edema Coding Level of Care Code Est Pt Level 4 (14478) Complex EM visit Add On G2211 Diagnoses (HFpEF) heart failure with preserved ejection fraction I50.30 Anemia D64.9 PAF (paroxysmal atrial fibrillation) I48.0 Mixed simple and mucopurulent chronic bronchitis J41.8 COPD type: chronic bronchitis Chronic bronchitis type: mixed simple and mucopurulent Assessment & Plan Assessment & Plan (1) (HFpEF) heart failure with preserved ejection fraction: Comment: Echo 2019 EF 20%, nl coronary cath 2021, Echo 01/2024 increase left ventricle wall thickness, ejection fraction 65%, moderate MR, mild pulmonary hypertension, intolerant to Farxiga (weakness), ACEI discontinued by pulmonology, intolerant to beta edward due to hypotension, Echo 01/2025 EF 65%. mod MR. mild pul HTN, f/u Dr. Coto Code(s): I50.30 - Unspecified diastolic (congestive) heart failure Category: Medical Plan: Continue furosemide follow-up with Cardiology, check BMP (2) Anemia: Code(s): D64.9 - Anemia, unspecified Category: Medical Plan: Monitor CBC check iron (3) PAF (paroxysmal atrial fibrillation): Comment: 10/13 Holter frequent APCs, s/p pacemaker for SSS, on Eliquis Code(s): I48.0 - Paroxysmal atrial fibrillation Category: Medical Plan: Continue Eliquis (4) COPD (chronic obstructive pulmonary disease): Comment: O2 dependent up to 5 l NC with exertion, on Azithromycin QOD, Extrinsic asthma allergic to cats and dust, tried immunotherapy in the past, montelukast caused mood swings, established with Dr. Tapia Code(s): J44.9 - Chronic obstructive pulmonary disease, unspecified Category: Medical Qualifiers: COPD type: chronic bronchitis Chronic bronchitis type: mixed simple and mucopurulent Qualified Code(s): J41.8 - Mixed simple and mucopurulent chronic bronchitis Plan: Continue current treatment follow-up with pulmonology Orders: Orders Complete Blood Count Auto Diff Today D64.9 - Anemia, unspecified IRON PROFILE Today D64.9 - Anemia, unspecified Basic Metabolic Panel Today I27.20 - Pulmonary hypertension, unspecified, I50.30 - Unspecified diastolic (congestive) heart failure Magnesium Today I27.20 - Pulmonary hypertension, unspecified, I50.30 - Unspecified diastolic (congestive) heart failure
[2025-01-16 12:21] VITALS: BP 112/70; PULSE 62; O2SAT 91; BMI 21.5
--- OUTSIDE RECORDS SUMMARY | 2025-01-16 14:15 | XMS_ITS | Clinical Summary ---
Author Organization [facility] ity Address [address] [place] [address] Care Team Providers Care Hazardous Materials Analyst Name Role Phone Freida Yarbrough MD Primary Care Provider [phone] Surgical History Surgery Date Site/Laterality Comments OTHER SURGICAL HISTORY PROCEDURE: DENIES PREVIOUS SURGERY Medical History Medical History Date Comments Asthma DX:Asthma High blood pressure DX:High bloo d pressure COPD (chronic obstructive pu lmonary disease) ([facility] V24, CMS/HCC V28) DX:COPD (chronic o bstructive pulmonary disease) ([facility]) Historical Medical DX DX:Emphyse figueroa [...] Procedure Name Priority Date/Time Associated Diagnosis Comments [facility] DEXA AXIAL SKELETON Routine 07/05/2021 3:14 PM EST Age-related osteoporosis without current pathological fracture from Last 3 Months or Most Recently Relevant to Health Maintenance Results * [facility] DEXA AXIAL SKELETON (07/05/2021 3:14 PM EST) Anatomical Region Laterality Modality Mammography 07/05/2021 10:2 7 AM EST Narrative 07/05/2021 3:14 PM [facility] Diagnostic Imaging Department [address] [place] [id number] Patient: AYLIN RAMIREZ Lissette /Age/Sex: 1945 - 76 - F Unit#: [id number] [facility] Order[facility] Physician: MAYRA CUELLO MD [facility] Dexa Axial Skeleton - 07/05/21 - 1104 [facility] Dexa Axial Skeleton INDICATION: POSTMENOPAUSAL Technique: Bone [...] placing the patient at risk for fracture. [id number] Dictating Physician: YUNG BURNS MD Electronically Signed by: YUNG BURNS MD Dic Date/Time: 07/05/211512 Sign date/Time: 07/05/211513 Procedure Note Yung Burns MD - 07/13/2022 [facility] Diagnostic Imaging Department [address] [place] [address] Patient: AYLIN RAMIREZ Lissette /Age/Sex: 1945 - 76 - F Unit#: [id number] Location/Status: SPDIMAM/REG CLI Mnemonic/[facility] Ordering Physician: MAYRA CUELLO MD [facility] Dexa Axial Skeleton - 07/05/21 - 1105 [facility] Dexa Axial Skeleton INDICATION: POSTMENOPAUSAL Technique: Bone [...] osteoporosis, placing the patient at risk forfracture. 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
== END 2025-01-16 15:30 | disposition home or self-care (01) ==
LOC: HO.HMCC 11:53
PROVIDERS: PCP Internal Medicine; Visit Provider Internal Medicine
DX: I50.30 Unspecified diastolic (congestive) heart failure (principal); D64.9 Anemia, unspecified; I48.0 Paroxysmal atrial fibrillation; J41.8 Mixed simple and mucopurulent chronic bronchitis

== ENCOUNTER 2025-01-16 11:52 | Outpatient (REF) | payer MEDICARE, SELFPAY ==
[2025-01-16 16:26] LABS: Basophils Absolute Auto 0.1 X10*3/uL (0.0-0.2); Basophils Percent Auto 0.3 % (0-2); Eosinophils Absolute Auto 0.1 X10*3/uL (0.0-0.4); Eosinophils Percent Auto 0.4 % (0-4); Hematocrit 42.9 % (37.0-47.0); Hemoglobin 13.8 g/dl (12.0-16.0); Imm Gran Abs Auto 0.39 X10*3/uL (0.00-0.03); Imm Gran Pct Auto 1.6 % (0.0-0.4); Lymphocytes Absolute Auto 1.4 X10*3/uL (1.2-4.9); Lymphocytes Percent Auto 5.7 % (20-40); MANUAL DIFF FLAG SCAN; Mean Corpuscular HGB Conc 32.2 g/dl (31.0-35.0); Mean Corpuscular Hemoglobin 31.7 pg (27.0-33.0); Mean Corpuscular Volume 98.6 fL (80.0-98.0); Mean Platelet Volume 10.2 fL (9.4-12.3); Monocytes Absolute Auto 1.3 X10*3/uL (0.1-1.2); Monocytes Percent Auto 5.3 % (2-11); Neutrophils Absolute Auto 21.2 x10*3/uL (2.0-8.3); Neutrophils Percent Auto 86.7 % (45-73); Platelet Count 273 X10*3/uL (160-400); Red Blood Count 4.35 X10*6/uL (4.20-5.50); Red Cell Distribution Width 13.5 % (11.0-16.0); SCAN SMEAR FLAG 1; White Blood Count 24.5 X10*3/uL (4.8-10.8)
[2025-01-16 16:47] LABS: Anion Gap 13 (12-20); Blood Urea Nitrogen 22 mg/dL (9-16); Calcium 9.5 mg/dL (8.4-10.2); Carbon Dioxide 30 mmol/L (22-29); Chloride 99 mmol/L (96-108); Estimated Glomerular Filt Rate > 60; Glucose Random 85 mg/dL (60-115); Iron 25 mcg/dL (30-160); Magnesium 2.2 mg/dL (1.6-2.6); Percent Iron Saturation 11 % (15-50); Sodium 138 mmol/L (135-145); Total Iron Binding Capacity 230 mcg/dL (228-428); Unsaturated Iron Binding 205 ug/dL
[2025-01-16 17:57] LABS: SLIDE REVIEW VERIFIED
== END 2025-01-16 11:53 | disposition home or self-care (01) ==
LOC: HO.HMGCLDS 11:52
PROVIDERS: PCP Internal Medicine; Visit Provider Internal Medicine
DX: I27.20 Pulmonary hypertension, unspecified (principal); I50.30 Unspecified diastolic (congestive) heart failure; D64.9 Anemia, unspecified; I48.0 Paroxysmal atrial fibrillation; J41.8 Mixed simple and mucopurulent chronic bronchitis
CPT/HCPCS: 36415; 80048; 83540; 83735; 85025; 99212

== ENCOUNTER 2025-01-30 08:34 | Outpatient (REF) | payer MEDICARE, SELFPAY ==
--- OUTSIDE RECORDS SUMMARY | 2025-01-30 08:44 | XMS_ITS | Clinical Summary ---
Author Organization [facility] ity Address [address] [place] [address] Care Team Providers Care Dredge Mechanic Name Role Phone Freida Yarbrough MD Primary Care Provider [phone] Surgical History Surgery Date Site/Laterality Comments OTHER SURGICAL HISTORY PROCEDURE: DENIES PREVIOUS SURGERY Medical History Medical History Date Comments Asthma DX:Asthma High blood pressure DX:High bloo d pressure COPD (chronic obstructive pu lmonary disease) ([facility] V24, CMS/HCC V28) DX:COPD (chronic o bstructive pulmonary disease) ([facility]) Historical Medical DX DX:Emphyse figueroa [...] 2023-2 5 season) 2024 Influenza Vaccine (#1) 2025 Osteoporosis Screening (Bone Density Screening) 07/05/2031 [...] Procedure Name Priority Date/Time Associated Diagnosis Comments [facility] DEXA AXIAL SKELETON Routine 07/05/2021 3:14 PM EST Age-related osteoporosis without current pathological fracture from Last 3 Months or Most Recently Relevant to Health Maintenance Results * [facility] DEXA AXIAL SKELETON (07/05/2021 3:14 PM EST) Anatomical Region Laterality Modality Mammography 07/05/2021 10:2 7 AM EST Narrative 07/05/2021 3:14 PM [facility] Diagnostic Imaging Department [address] [place] [address] Patient: AYLIN RAMIREZ Lissette /Age/Sex: 1945 - 76 - F Unit#: [id number] [facility] Ordering Physician: MAYRA CUELLO MD [facility] Dexa Axial Skeleton - 07/05/21 - 1104 [facility] Dexa Axial Skeleton INDICATION: POSTMENOPAUSAL Technique: [...] placing the patient at risk for fracture. [id number] Dictating Physician: YUNG BURNS MD Electronically Signed by: YUNG BURNS MD Dic Date/Time: 07/05/211512 Sign date/Time: 07/05/211513 Procedure Note Yung Burns MD - 07/13/2022 [facility] Diagnostic Imaging Department [address] [place] [address] Patient: AYLIN RAMIREZ Lissette /Age/Sex: 1945 - 76 - F Unit#: [id number] Location/Status: SPDIMAM/REG CLI Mnemonic[facility] Ordering Physician: MAYRA CUELLO MD [facility] Dexa Axial Skeleton - 07/05/21 - 1105 [facility] Dexa Axial Skeleton INDICATION: POSTMENOPAUSAL Technique: [...] osteoporosis, placing the patient at risk forfracture. [id number] Dictating Physician: YUNG BURNS MD Electronically Signed by: YUNG BURNS MD Dic Date/Time: 07/05/211512 Sign date/Time: 07/05/211513 us Mayra Cuello MD IMG BI PROCEDURES Final Res ult from Last 3 Months or Most Recently Relevant to Health Maintenance Advance Directives Documents on File Type Date Recorded Patient Mediation Commissioner Expl anation Health Care Decision (hx) 08/29/2012 [...] (hx) 08/29/2012 AD GARDNER DIRECTIVE Care Teams Dredge Mechanic Relationship Specialty Start Date End Date Freida Yarbrough MD PCP - General Internal Medicine 1945
[2025-01-30 10:54] LABS: Baso%MD 0.6 %; Eos%MD 3.1 %; Hematocrit 35.7 % (37.0-47.0); Hemoglobin 11.5 g/dl (12.0-16.0); IG%MD 0.4 %; Lymph%MD 25.7 %; Mean Corpuscular HGB Conc 32.2 g/dl (31.0-35.0); Mean Corpuscular Hemoglobin 31.8 pg (27.0-33.0); Mean Corpuscular Volume 98.6 fL (80.0-98.0); Mono%MD 6.4 %; NRBC Abs Auto 0.000 X10*3/uL (0.0-0.012); NRBC Pct Auto 0.0 /100WBC (0.0-0.2); Neut%MD 63.8 %; Platelet Count 293 X10*3/uL (160-400); Red Blood Count 3.62 X10*6/uL (4.20-5.50); White Blood Count 5.2 X10*3/uL (4.8-10.8)
[2025-01-30 11:31] LABS: Band Neutrophils Percent 2 % (3-5); Basophils Abs Manual 0.1 X10*3/uL (0.0-0.2); Basophils Percent Manual 1 % (0-2); Eosinophils Absolute Manual 0.3 X10*3/uL (0.0-0.4); Eosinophils Percent Manual 6 % (0-4); Lymphocytes Absolute Manual 1.5 X10*3/uL (1.2-4.9); Lymphocytes Percent Manual 29 % (20-40); Monocytes Absolute Manual 0.2 X10*3/uL (0.1-1.2); Monocytes Percent Manual 4 % (2-11); Neutrophils Absolute Manual 3.1 X10*3/uL (2.0-8.3); Neutrophils Percent Manual 58 % (45-73)
[2025-01-30 11:33] LABS: Burr Cells 1+ (0-2) /OIF; Large Platelet PRESENT; Ovalocytes 1+ (5-14) /OIF; RBC Morphology NOTED
== END 2025-01-30 08:35 | disposition home or self-care (01) ==
LOC: HO.HMGCLDS 08:34
PROVIDERS: PCP Internal Medicine; Visit Provider Internal Medicine
DX: D72.828 Other elevated white blood cell count (principal)
CPT/HCPCS: 36415; 85007; 85027

== ENCOUNTER → 2025-02-23 23:59 | Outpatient (BNV) | payer MEDICARE, SELFPAY ==
--- NOTE | 2025-03-09 20:35 | MHC.OFFVIS ---
Intake Visit Reasons: Remote device check- [facility] Allergies gemifloxacin Allergy (Unknown, Verified 03/06/25 09:36) Rash montelukast (Singulair) Allergy (Unknown, Verified 03/06/25 09:36) mood swings ARB-Angiotensin Receptor Antagonist Adverse Reaction (Intermediate, Verified 03/06/25 09:36) Cough dapagliflozin (From [facility]) Adverse Reaction (Intermediate, Verified 03/06/25 09:36) polyuria lisinopril Adverse Reaction (Intermediate, Verified 03/06/25 09:36) Cough PFSH Medical History (Updated 02/25/25 @ 15:19 by Freida Yarbrough MD) Sinusitis Pulmonary hypertension Chronic respiratory failure Bronchopneumonia Osteoporosis Cardiac pacemaker in situ HTN (hypertension) PAF (paroxysmal atrial fibrillation) COPD (chronic obstructive pulmonary disease) Chronic anticoagulation Renal failure Rhabdomyolysis Pneumonia Hyponatremia Hyperlipemia SSS (sick sinus syndrome) Meniere disease Sleep apnea Surgical History History of permanent cardiac pacemaker placement History of endoscopy History of hysterectomy History of cardiac cath Family History Father Lung cancer Mother COPD (chronic obstructive pulmonary disease) Social History Household Members: Spouse Housing: House Do you presently have visiting nurse or other home services: Yes (VNA and OT) Alcohol intake: never Patient Tobacco Use Status: Former Tobacco user Years Smoked: 30 +/- e-Cigarette/Vaping Use: Never Used Second Hand Smoke Exposure: No Advance Directives Date on File: 02/06/23 service: No Current occupational status: retired Cognitive needs: No Hearing needs: Yes Vision needs: Yes Office Procedures Cardiac Device Check Cardiac Device Check Details: PPM Battery life good INTERPRETER TRANSLATOR 57% PMT noted early february,-Remote Cardiac Device Interrogation, pacemaker Procedure code (CPT) selection complete Assessment & Plan Assessment & Plan (1) Cardiac pacemaker in situ: Code(s): Z95.0 - Presence of cardiac pacemaker Category: Medical Plan Coding Level of Care Code Procedure Only Diagnoses Cardiac pacemaker in situ Z95.0 CPT Codes Cardiac Device Check - Cardiac Device [id number] Cardiac Device Interrogation, pacemaker ([id number])
== END ==
PROVIDERS: PCP Internal Medicine; Visit Provider Internal Medicine Cardiovascular Disease
DX: Z45.018 Encounter for adjustment and management of other part of cardiac pacemaker (principal)
CPT/HCPCS: 93294

== ENCOUNTER 2025-02-25 12:55 | Outpatient (REF) | payer MEDICARE, SELFPAY ==
[2025-02-25 16:54] LABS: Resp Syncy Virus RNA Qual PCR NEGATIVE (Negative); SARS COV2 PCR INHOUSE NEGATIVE (Negative)
== END 2025-02-25 12:56 | disposition home or self-care (01) ==
LOC: HO.LAB 12:55
PROVIDERS: PCP Internal Medicine; Visit Provider Internal Medicine
DX: J39.9 Disease of upper respiratory tract, unspecified (principal); R50.9 Fever, unspecified; I50.30 Unspecified diastolic (congestive) heart failure; J41.8 Mixed simple and mucopurulent chronic bronchitis; J32.9 Chronic sinusitis, unspecified
CPT/HCPCS: 87637; 99212

== ENCOUNTER 2025-02-25 12:55 | Outpatient (AMB) | payer MEDICARE, SELFPAY ==
[2025-02-25 13:20] VITALS: BP 124/74; PULSE 60; RESP 18; TEMP 36.3; O2SAT 91; BMI 21.5
--- NOTE | 2025-02-25 13:20 | MHC.PC.OV ---
Vital Signs 02/25/25 13:20 Height 5 ft Weight 110 lb BMI 21.5 BP 124/74 Blood Pressure Location Lt brachial Position Sitting Respiration 18 Pulse 60 Pulse Source Pulse Oximeter Temp 97.4 F Temp Source Oral Pulse Oximetry (%) 91 L Oxygen Delivery Method Room Air Intake Visit Reasons: 3 months follow up Intake Note: Pt is here today for 3 months follow up visit. Allergies gemifloxacin Allergy (Unknown, Verified 02/25/25 13:20) Rash montelukast (Singulair) Allergy (Unknown, Verified 02/25/25 13:20) mood swings ARB-Angiotensin Receptor Antagonist Adverse Reaction (Intermediate, Verified 02/25/25 13:20) Cough dapagliflozin (From [facility]) Adverse Reaction (Intermediate, Verified 02/25/25 13:20) polyuria lisinopril Adverse Reaction (Intermediate, Verified 02/25/25 13:20) Cough Medication List - Last Reconciled 02/25/25 by Freida Yarbrough MD acetaminophen 650 mg PO Q6H PRN albuterol sulfate 0.63 mg (3 mL) inhalation Q4-6H PRN albuterol sulfate 90 mcg/actuation 2 puffs inhalation QID PRN apixaban (Eliquis) 5 mg PO BID azelastine 2 sprays intranasal BID azithromycin 250 mg PO 3XW calcium carbonate (Calcium 600) 600 mg PO BID cetirizine (Zyrtec) 10 mg PO DAILY cholecalciferol (vitamin D3) (Vitamin D3) 50 mcg PO DAILY ferrous sulfate 324 mg PO TUTHSA furosemide 20 mg PO BID levothyroxine 25 mcg PO DAILY@0600 magnesium 400 mg PO BEDTIME multivit with min-folic acid 80 mcg (Centrum Adult 50 Plus) 1 tab PO DAILY omeprazole 20 mg PO DAILY@0630 PRN peg 400-propylene glycol (PF) 0.4-0.3 % (Systane (PF)) 1 drp ophthalmic (eye) BID potassium chloride ER 20 mEq PO DAILY pravastatin 20 mg PO BEDTIME prednisone mg PO Trelegy Ellipta 200-62.5-25 mcg (tmmqccitkzg-mvqmntxss-nxzuzxtc) 1 inh inhalation DAILY 30 days NS Tobacco use date assessed: 02/25/25 Fall risk assessment: No Falls in past year Last assessed Fall Risk: 02/25/25 Dental Screening Dental Screen Date: 02/25/25 Did you have a dental visit in the last 12 months?: Yes Did you have a dental problem in the last 6 months where you did not have access to dental care?: No Was dental information given to patient?: Patient has dentist HPI 3 months follow up HPI Details Patient presents for the follow-up of COPD paroxysmal AFib hypothyroidism. She complains of sinus congestion, greenish nasal discharge, productive cough white sputum and increased wheezing for the last 3 days. Patient reports low grade fever and body aches and denies pleurisy PND or orthopnea. [facility] Medical History (Updated 02/25/25 @ 15:19 by Freida Yarbrough MD) Sinusitis Pulmonary hypertension Chronic respiratory failure Bronchopneumonia Osteoporosis Cardiac pacemaker in situ HTN (hypertension) PAF (paroxysmal atrial fibrillation) COPD (chronic obstructive pulmonary disease) Chronic anticoagulation Renal failure Rhabdomyolysis Pneumonia Hyponatremia Hyperlipemia SSS (sick sinus syndrome) Meniere disease Sleep apnea Surgical History History of permanent cardiac pacemaker placement History of endoscopy History of hysterectomy History of cardiac cath Family History Father Lung cancer Mother COPD (chronic obstructive pulmonary disease) Social History Household Members: Spouse Housing: House Do you presently have visiting nurse or other home services: Yes (VNA and OT) Alcohol intake: never Patient Tobacco Use Status: Former Tobacco user Years Smoked: 30 +/- e-Cigarette/Vaping Use: Never Used Second Hand Smoke Exposure: No Advance Directives Date on File: 02/06/23 service: No Current occupational status: retired Cognitive needs: No Hearing needs: Yes Vision needs: Yes Questionnaire Thrive Questionnaire Date Thrive assessed: 11/22/24 I am a: Patient What is your living situation today?: I have a steady place to live Within the past 12 months, did the food you bought not last and you didn't have the money to get more?: Often true Within the past 12 months, did you worry whether your food would run out before you got money to buy more?: I choose not to answer this question Do you have trouble paying for medicines?: I choose not to answer this question Do you have trouble getting transportation to medical appointments?: I choose not to answer this question Do you have trouble paying your heating and electricity bill?: I choose not to answer this question Do you have trouble taking care of your child, family member or friend?: I choose not to answer this question Do you have trouble with day-to-day activities such as bathing, preparing meals, shopping, managing finances, etc.?: I choose not to answer this question Are you currently unemployed and looking for a job?: I choose not to answer this question Are you interested in more education?: I choose not to answer this question Please select the resources that you would like help with: None Currently or been in a relationship where the following occur: I choose not to answer THRIVE Score: 1 YUDELKA-7 AMB Questionnaire YUDELKA-7 Date YUDELKA - 7 assessed: 10/04/24 Source: Developed by Drs. Jerry Munoz, Karishma Melgar, Joaquin Ariza and colleagues, with an educational gaby from [employer]. Review of Systems Const All systems reviewed & are unremarkable except as noted in HPI and below Eyes Reports no additional complaints ENT Reports no additional complaints Card Reports no additional complaints Resp Reports no additional complaints GI Reports no additional complaints Reports no additional complaints Physical exam (Primary Care) Vital Signs: Last Vital Signs Temp 97.4 F 02/25/25 13:20 Pulse 60 02/25/25 13:20 Resp 18 02/25/25 13:20 BP 124/74 02/25/25 13:20 Pulse Ox 91 L 02/25/25 13:20 Oxygen Delivery Method Room Air 02/25/25 13:20 BMI result Body Mass Index 21.5 Tobacco/Smoking Status: Tobacco use Status Tobacco use date assessed 02/25/25 02/25/25 13:21 Patient Tobacco Use Status Former Tobacco user 02/25/25 13:21 e-Cigarette/Vaping Use Never Used 02/25/25 13:21 Thrive Assessment: Date of Thrive Assessment Date Thrive assessed 11/22/24 02/25/25 13:21 Currently or been in a relationship where the following occur: I choose not to answer Const General: no acute distress HENMT Head: Yes normal to inspection Ears: TM's normal bilaterally General nose exam: Abnormal mucous membranes and turbinates present erythematous Face and sinus: Yes sinus tenderness Throat: Yes postnasal drainage Eyes General: appearance normal, both eyes and all related structures Neck Neck: Yes no lymphadenopathy and Yes supple Resp Effort & Inspection: able to speak in complete sentences Auscultation: wheezes and diminished lung sounds Cardio Rhythm: regular rhythm Heart sounds: S1 normal heart sound present and S2 normal heart sound present GI Inspection: Yes normal to inspection Palpation (GI): Soft to palpation Percussion: Yes normal to percussion Auscultation: normal bowel sounds Coding Level of Care Code Est Pt Level 4 (07790) Diagnoses (HFpEF) heart failure with preserved ejection fraction I50.30 Mixed simple and mucopurulent chronic bronchitis J41.8 COPD type: chronic bronchitis Chronic bronchitis type: mixed simple and mucopurulent Sinusitis J32.9 Assessment & Plan Assessment & Plan (1) (HFpEF) heart failure with preserved ejection fraction: Comment: Echo 2019 EF 20%, nl coronary cath 2021, Echo 01/2024 increase left ventricle wall thickness, ejection fraction 65%, moderate MR, mild pulmonary hypertension, intolerant to Farxiga (weakness), ACEI discontinued by pulmonology, intolerant to beta edward due to hypotension, Echo 01/2025 EF 65%. mod MR. mild pul HTN, f/u Dr. Coto Code(s): I50.30 - Unspecified diastolic (congestive) heart failure Category: Medical Plan: Continue current medications (2) COPD (chronic obstructive pulmonary disease): Comment: O2 dependent up to 5 l NC with exertion, on Azithromycin QOD, Extrinsic asthma allergic to cats and dust, tried immunotherapy in the past, montelukast caused mood swings, established with Dr. Tapia Code(s): J44.9 - Chronic obstructive pulmonary disease, unspecified Category: Medical Qualifiers: COPD type: chronic bronchitis Chronic bronchitis type: mixed simple and mucopurulent Qualified Code(s): J41.8 - Mixed simple and mucopurulent chronic bronchitis Plan: Continue current treatment follow-up with pulmonology (3) Sinusitis: Code(s): J32.9 - Chronic sinusitis, unspecified Category: Medical Plan: Doxycycline and prednisone taper as prescribed. And supportive care discussed with the patient. Orders: Orders SARS-CoV2/FLU/RSV Today J39.9 - Disease of upper respiratory tract, unspecified Medications: New doxycycline hyclate 100 mg PO BID 20 tabs 0RF prednisone 4 tabl qd for 3 days, then 3 tabl qd x 3 days, then 2 tabl qd x 3 days, then 1 qd x 3 days orally daily; 30 tabs 0RF
--- OUTSIDE RECORDS SUMMARY | 2025-02-25 13:31 | XMS_ITS | Clinical Summary ---
Author Organization [facility] ity Address [address] [place] [address] Care Team Providers Care Early Childhood Teacher Assistant Name Role Phone Freida Yarbrough MD Primary Care Provider [phone] Surgical History Surgery Date Site/Laterality Comments OTHER SURGICAL HISTORY PROCEDURE: DENIES PREVIOUS SURGERY Medical History Medical History Date Comments Asthma DX:Asthma High blood pressure DX:High bloo d pressure COPD (chronic obstructive pu lmonary disease) ([facility] V24, CMS/HCC V28) DX:COPD (chronic o bstructive pulmonary disease) ([facility]) Historical Medical DX DX:Emphyse figueroa Family History [...] series) 2019 Cholesterol Screening (Lipid Panel) 07/02/2022 Falls Risk Assessment 07/02/2022 Social Influencers of Health Screening 07/02/2022 Hypertension/CHF/CAD Annual BMP Blood Test 07/03/2022 COVID-19 Vaccine (1 - 2023-2 5 season) 2024 Depression Screening 07/24/2024 Influenza Vaccine (#1) 2025 Osteoporosis Screening (Bone [...] Procedure Name Priority Date/Time Associated Diagnosis Comments [facility] DEXA AXIAL SKELETON Routine 07/05/2021 3:14 PM EST Age-related osteoporosis without current pathological fracture from Last 3 Months or Most Recently Relevant to Health Maintenance Results * [facility] DEXA AXIAL SKELETON (07/05/2021 3:14 PM EST) Anatomical Region Laterality Modality Mammography 07/05/2021 10:2 7 AM EST Narrative 07/05/2021 3:[address] [facility] Diagnostic Imaging Department [address] [place] [address] Patient: AYLIN RAMIREZ Lissette /Age/Sex: 1945 - 76 - F Unit#: [id number] [facility] Ordering Physician: MAYRA CUELLO MD [facility] Dexa Axial Skeleton - 07/05/21 - 1104 [facility] Dexa Axial Skeleton INDICATION: POSTMENOPAUSAL Technique: Bone [...] placing the patient at risk for fracture. [id number] Dictating Physician: YUNG BURNS MD Electronically Signed by: YUNG BURNS MD Dic Date/Time: 07/05/211512 Sign date/Time: 07/05/211513 Procedure Note Yung Burns MD - 07/13/2022 [facility] Diagnostic Imaging Department [address] [place] [address] Patient: AYLIN RAMIREZ Lissette /Age/Sex: 1945 - 76 - F Unit#: [id number] Location/Status: SPDIMAM/REG CLI Mnemonic/Ordering [facility]: [facility] Ordering Physician: MAYRA CUELLO MD [facility] Dexa Axial Skeleton - 07/05/21 - 1104 [facility] Dexa Axial Skeleton INDICATION: POSTMENOPAUSAL Technique: Bone [...] osteoporosis, placing the patient at risk forfracture. 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
== END 2025-02-25 15:22 | disposition home or self-care (01) ==
LOC: HO.HMCC 12:56
PROVIDERS: PCP Internal Medicine; Visit Provider Internal Medicine
DX: I50.30 Unspecified diastolic (congestive) heart failure (principal); J41.8 Mixed simple and mucopurulent chronic bronchitis; J32.9 Chronic sinusitis, unspecified

== ENCOUNTER 2025-03-06 09:23 | Outpatient (AMB) | payer MEDICARE, SELFPAY ==
--- NOTE | 2025-03-06 09:31 | A.OFFVIS_ITS ---
Vital Signs 03/06/25 09:32 Height 5 ft Weight 109 lb 2.061 oz BMI 21.3 BP 160/70 H Blood Pressure Location Lt brachial Position Sitting Pulse 60 Pulse Source Pulse Oximeter Pulse Oximetry (%) 96 Oxygen Delivery Method Nasal Cannula Oxygen Flow Rate 6 Intake Visit Reasons: COPD Hazardous Materials Waste Technician Required: No Allergies gemifloxacin Allergy (Unknown, Verified 03/06/25 09:36) Rash montelukast (Singulair) Allergy (Unknown, Verified 03/06/25 09:36) mood swings ARB-Angiotensin Receptor Antagonist Adverse Reaction (Intermediate, Verified 09:36) Cough dapagliflozin (From [facility]) Adverse Reaction (Intermediate, Verified 03/06/25 09:36) polyuria lisinopril Adverse Reaction (Intermediate, Verified 03/06/25 09:36) Cough HPI Comments Details: The patient is an 79 year woman no COPD and also heart disease with chronic respiratory failure on oxygen will was already established with the [facility] provider enrollment specialist but now she is looking to transitioning her care to [place]. The patient already is on adequate therapy for COPD with aFb. She also uses a portable oxygen concentrator 24 hours a day. She does have a concentrator at home. When she is out and about she does use about 5-6 L pulse and when she is at home she is able to be on the concentrator continuous around 3-4 L. lately though she has been on more oxygen that she has been having more chest congestion and bronchitis. She has had pneumonia in the past. She had a CT scan back in 2022 when she had been the hospital bilateral pneumonia. We did review her CT scan demonstrating emphysematous changes and significant nodular like airspace disease. He has had additional imaging studies but he has been a [place] and we do not have access to those. Her last chest x-ray also was from 2022. We did go for brief walking oximetry the patient did desaturate down to the 70s on her pulse device. Therefore we switched her over to continuous 4 L continues right now and she is going to go get an x-ray. She does have some crackles in the right base suggesting the possibility of bronchopneumonia. Likely worsening her gas exchange she did have a blood gas in the past demonstrating normal pCO2. At some point when she is better were able to check her blood gas again to see if he has any evidence of any chronic hypercapnia. The patient also will provide us with a sputum culture if the antibiotics are not helpful in improving her chest congestion. She already has a nebulizer although she is not using it she is going to restart using it for chest PT and will provide her with an Acapella valve for better mucus clearance and bronchopulmonary hygiene. 01/01/2025 the patient is here for pulmonary follow-up visit. Since we last spoke she has been having worsening respiratory symptoms. She has had to increase her oxygen up to 6 L which is the maximum that her concentrator can provide her at home. When she came in with a portable oxygen concentrator 6 L pulse she was only saturating around 80%. His after walking to the office. We were able to put her on 6 L on the continuous flow in her oxygen did improve to about 95% with some work. She has been using her respiratory therapy has been helpful. Initially Trelegy did make a big difference. We did have her go for a chest x-ray and also blood work. She is on Eliquis although I still checked a D-dimer which was negative. Hemoglobin was stable but her cardiac enzymes were significantly elevated 153 and her brain atretic peptide seem to be higher than her baseline. Therefore likely that she has some congestive heart failure right now. View of the significant elevation of the cardiac enzymes and her comorbidities I did recommend she come to the hospital. I did call the ER to let them know that she was on her way. 03/06/2025 the patient is here for a pulmonary follow-up visit. Since we last spoke the patient did go to the ER for the elevated cardiac enzymes. She ruled out for an ID. She did have Cardiology see her. In the meantime she continues on the oxygen. She does require high oxygen requirements 6 L at rest and 8 L with activity. Will request an Oxymizer pendant for her to have better portability outside of the home. Will go through her [employer] company, [employer]. In addition to that the patient did have blood work demonstrating an elevated eosinophil count. She has COPD with frequent exacerbations and chest congestion. She will be a great candidate for Nucala in order to help decrease her exacerbations in view of her significant respiratory disease. The patient continues on the current respiratory therapy. She does respond well to the azithromycin as well because of the chronic bronchitis. Will go ahead and initiate that as well. Will go ahead and repeat her echocardiogram to assess her pulmonary hypertension since it has been more than a year and if the pressures are elevated will discuss further vasodilators omer therapy. Although I am concerned that with her mitral valve disease and her cor pulmonale she can potentially have worsening affects from the increase blood flow to the left atrium and ventricle. REPLACED BY [facility] Medical History (Updated 02/25/25 @ 15:19 by Freida Yarbrough MD) Sinusitis Pulmonary hypertension Chronic respiratory failure Bronchopneumonia Osteoporosis Cardiac pacemaker in situ HTN (hypertension) PAF (paroxysmal atrial fibrillation) COPD (chronic obstructive pulmonary disease) Chronic anticoagulation Renal failure Rhabdomyolysis Pneumonia Hyponatremia Hyperlipemia SSS (sick sinus syndrome) Meniere disease Sleep apnea Surgical History History of permanent cardiac pacemaker placement History of endoscopy History of hysterectomy History of cardiac cath Family History Father Lung cancer Mother COPD (chronic obstructive pulmonary disease) Social History Household Members: Spouse Housing: House Do you presently have visiting nurse or other home services: Yes (VNA and OT) Alcohol intake: never Patient Tobacco Use Status: Former Tobacco user Years Smoked: 30 +/- e-Cigarette/Vaping Use: Never Used Second Hand Smoke Exposure: No Advance Directives Date on File: 02/06/23 service: No Current occupational status: retired Cognitive needs: No Hearing needs: Yes Vision needs: Yes Review of Systems Const Reports fatigue and Denies fever(s) ENT Denies nasal obstruction Card Denies chest pain, Reports dyspnea and Reports dyspnea on exertion Resp Reports change in phlegm color, Reports chest congestion, Reports cough, Reports dyspnea, Reports dyspnea on exertion and Reports wheezing GI Reports no additional complaints Musc Reports abnormal gait, Reports back pain and Reports myalgias Skin/Breast Denies rash Neuro Reports abnormal gait Endo Reports fatigue Suresh/Lymph Denies easy bleeding Aller/Immun Reports wheezing Physical Exam Vital Signs: Last Vital Signs Pulse 60 03/06/25 09:32 BP 160/70 H 03/06/25 09:32 Pulse Ox 96 03/06/25 09:32 Oxygen Delivery Method Nasal Cannula 03/06/25 09:32 Oxygen Flow Rate 6 03/06/25 09:32 BMI result Body Mass Index 21.3 Const General: comfortable and tired appearing HEENT Head: Yes normocephalic Neck Neck: Yes supple Chest Chest palpation & inspection: normal inspection of the chest Resp Effort & Inspection: normal respiratory effort and prolonged expiratory phase Auscultation: rhonchi and diminished lung sounds Cardio Heart sounds: S1 normal heart sound present and S2 normal heart sound present GI Palpation (GI): Soft to palpation Skin General skin exam: no rashes or lesions noted Extrem General: Yes cyanosis Results Reviewed Results Reviewed: personally reviewed CXR 2022 with increase cardiac size and PM, CT chest 2022 with bibasilar pneumonia and emphysema Assessment & Plan Assessment & Plan (1) Bronchopneumonia: Code(s): J18.0 - Bronchopneumonia, unspecified organism Category: Medical (2) COPD (chronic obstructive pulmonary disease): Comment: O2 dependent up to 5 l NC with exertion, on Azithromycin QOD, Extrinsic asthma allergic to cats and dust, tried immunotherapy in the past, montelukast caused mood swings, established with Dr. Tapia Code(s): J44.9 - Chronic obstructive pulmonary disease, unspecified Category: Medical Qualifiers: COPD type: chronic bronchitis Chronic bronchitis type: mixed simple and mucopurulent Qualified Code(s): J41.8 - Mixed simple and mucopurulent chronic bronchitis (3) Chronic respiratory failure: Code(s): J96.10 - Chronic respiratory failure, unspecified whether with hypoxia or hypercapnia Category: Medical Qualifiers: Respiratory failure complication: hypoxia Qualified Code(s): J96.11 - Chronic respiratory failure with hypoxia (4) Acute on chronic respiratory failure with hypoxia and hypercapnia: Code(s): J96.21 - Acute and chronic respiratory failure with hypoxia; J96.22 - Acute and chronic respiratory failure with hypercapnia Category: Medical (5) Congestive heart failure: Code(s): I50.9 - Heart failure, unspecified Category: Medical Qualifiers: Heart failure chronicity: acute on chronic Heart failure type: systolic Qualified Code(s): I50.23 - Acute on chronic systolic (congestive) heart failure (6) Elevated troponin I level: Code(s): R79.89 - Other specified abnormal findings of blood chemistry Category: Medical (7) Pulmonary hypertension: Code(s): I27.20 - Pulmonary hypertension, unspecified Category: Medical Plan continue Trelegy ANAIS as needed Nebulizer 2 times aday followed by acapella valve for CPT Oxygen needs 6L/min at rest and 8l/min with activity. The pt carries a poor prognosis. Requesting an oximizer pendent for better portability Ohtuvayre request vasodilators potentially dangerous Continue oxygen, does not seem to respond well to conserving device F/U 2 months Medications: Changed From azithromycin 250 mg PO 3XW To azithromycin 250 mg PO 3XW 12 tabs 5RF 28 days Refilled albuterol sulfate 90 mcg/actuation 2 puffs inhalation QID PRN 8.5 grams 11RF Shortness Of Breath Or Wheezing Coding Level of Care Code Est Pt Level 5 (18963) Complex EM visit Add On G2211 Diagnoses Bronchopneumonia J18.0 Mixed simple and mucopurulent chronic bronchitis J41.8 COPD type: chronic bronchitis Chronic bronchitis type: mixed simple and mucopurulent Chronic respiratory failure with hypoxia J96.11 Respiratory failure complication: hypoxia Acute on chronic respiratory failure with hypoxia and hypercapnia J96.21; J96.22 Acute on chronic systolic congestive heart failure I50.23 Heart failure chronicity: acute on chronic Heart failure type: systolic Elevated troponin I level R79.89 Pulmonary hypertension I27.20 Time Spent (min) 45
[2025-03-06 09:32] VITALS: BP 160/70; PULSE 60; O2SAT 96; BMI 21.3
--- OUTSIDE RECORDS SUMMARY | 2025-03-06 10:05 | XMS_ITS | Clinical Summary ---
Author Organization [facility] ity Address [address] [place] [address] Care Team Providers Care Game Artist Name Role Phone Freida Yarbrough MD Primary Care Provider [phone] Surgical History Surgery Date Site/Laterality Comments OTHER SURGICAL HISTORY PROCEDURE: DENIES PREVIOUS SURGERY Medical History Medical History Date Comments Asthma DX:Asthma High blood pressure DX:High bloo d pressure COPD (chronic obstructive pu lmonary disease) ([facility] V24, CMS/HCC V28) DX:COPD (chronic o bstructive pulmonary disease) ([facility]) Historical Medical DX DX:Emphyse figueroa Family History [...] Procedure Name Priority Date/Time Associated Diagnosis Comments [facility] DEXA AXIAL SKELETON Routine 07/05/2021 3:14 PM EST Age-related osteoporosis without current pathological fracture from Last 3 Months or Most Recently Relevant to Health Maintenance Results * [facility] DEXA AXIAL SKELETON (07/05/2021 3:14 PM EST) Anatomical Region Laterality Modality Mammography 07/05/2021 10:2 7 AM EST Narrative 07/05/2021 3:14 PM [facility] Diagnostic Imaging Department [address] [place] [id number] Patient: AYLIN RAMIREZ Lissette /Age/Sex: 1945 - 76 - F Unit#: [id number] [facility] Ordering Physician: MAYRA CUELLO MD [facility] Dexa Axial Skeleton - 07/05/21 - 1104 [facility] Dexa Axial Skeleton INDICATION: POSTMENOPAUSAL Technique: [...] placing the patient at risk for fracture. [id number] Dictating Physician: YUNG BURNS MD Electronically Signed by: YUNG BURNS MD Dic Date/Time: 07/05/211512 Sign date/Time: 07/05/211513 Procedure Note Yung Burns MD - 07/13/2022 [facility] Diagnostic Imaging Department [address] [place] [address] Patient: AYLIN RAMIREZ Lissette /Age/Sex: 1945 - 76 - F Unit#: [id number] Location/Status: SPD[facility]AM/REG CLI Mnemonic[facility] Ordering Physician: MAYRA CUELLO MD [facility] Dexa Axial Skeleton - 07/05/21 - 1104 [facility] Dexa Axial Skeleton INDICATION: POSTMENOPAUSAL Technique: [...] osteoporosis, placing the patient at risk forfracture. [id number] Dictating Physician: YUNG BURNS MD Electronically Signed by: YUNG BURNS MD Dic Date/Time: 07/05/211512 Sign date/Time: 07/05/211513 us Mayra Cuello MD IMG BI PROCEDURES Final Res ult from Last 3 Months or Most Recently Relevant to Health Maintenance Advance Directives Documents on File Type Date Recorded Patient Distributor Publications Expl anation Health Care Decision (hx) 08/29/2012 [...] (hx) 08/29/2012 AD GARDNER DIRECTIVE Care Teams Game Artist Relationship Specialty Start Date End Date Freida Yarbrough MD PCP - General Internal Medicine 1945
== END 2025-03-06 10:05 | disposition home or self-care (01) ==
LOC: HO.HPS 09:30
PROVIDERS: PCP Internal Medicine; Visit Provider Hospitalist
DX: J18.0 Bronchopneumonia, unspecified organism (principal); J41.8 Mixed simple and mucopurulent chronic bronchitis; J96.11 Chronic respiratory failure with hypoxia; J96.21 Acute and chronic respiratory failure with hypoxia; J96.22 Acute and chronic respiratory failure with hypercapnia; I50.23 Acute on chronic systolic (congestive) heart failure; R79.89 Other specified abnormal findings of blood chemistry; I27.20 Pulmonary hypertension, unspecified
CPT/HCPCS: 99215; G2211

== ENCOUNTER → 2025-03-06 09:23 | Outpatient (BNVA) | payer MEDICARE, SELFPAY | PROVIDERS: PCP Internal Medicine; Visit Provider Hospitalist | DX: J96.11 Chronic respiratory failure with hypoxia (principal); J96.22 Acute and chronic respiratory failure with hypercapnia; I50.23 Acute on chronic systolic (congestive) heart failure; J41.8 Mixed simple and mucopurulent chronic bronchitis; J18.0 Bronchopneumonia, unspecified organism; I27.20 Pulmonary hypertension, unspecified; R79.89 Other specified abnormal findings of blood chemistry | CPT/HCPCS: 99212 ==

== ENCOUNTER 2025-04-25 08:09 | Outpatient (REF) | payer MEDICARE, SELFPAY ==
[2025-04-25 10:10] LABS: MANUAL DIFF FLAG NO
[2025-04-25 10:27] LABS: Hematocrit 37.1 % (37.0-47.0); Hemoglobin 12.0 g/dl (12.0-16.0); Imm Gran Abs Auto 0.02 X10*3/uL (0.00-0.03); Imm Gran Pct Auto 0.3 % (0.0-0.4); Lymphocytes Absolute Auto 1.2 X10*3/uL (1.2-4.9); Mean Corpuscular HGB Conc 32.3 g/dl (31.0-35.0); Mean Corpuscular Hemoglobin 32.0 pg (27.0-33.0); Mean Corpuscular Volume 98.9 fL (80.0-98.0); NRBC Abs Auto 0.000 X10*3/uL (0.0-0.012); NRBC Pct Auto 0.0 /100WBC (0.0-0.2); Platelet Count 265 X10*3/uL (160-400); Red Blood Count 3.75 X10*6/uL (4.20-5.50); White Blood Count 7.9 X10*3/uL (4.8-10.8)
[2025-04-25 10:40] LABS: Alanine Aminotransferase 9 U/L (0-31); Albumin Level 4.2 g/dL (3.5-5.0); Alkaline Phosphatase 60 U/L (39-117); Anion Gap 10 (12-20); Aspartate Amino Transferase 27 U/L (5-31); Blood Urea Nitrogen 14 mg/dL (9-16); Calcium 9.5 mg/dL (8.4-10.2); Carbon Dioxide 29 mmol/L (22-29); Chloride 105 mmol/L (96-108); Estimated Glomerular Filt Rate > 60; Iron 87 mcg/dL (30-160); Percent Iron Saturation 33 % (15-50); Potassium 3.8 mmol/L (3.3-5.1); Sodium 140 mmol/L (135-145); Total Iron Binding Capacity 264 mcg/dL (228-428); Total Protein 7.1 g/dL (6.5-8.0); Unsaturated Iron Binding 177 ug/dL
[2025-04-25 10:47] LABS: NT Pro B Type Natriuretic Pept 2923.4 pg/mL (<300)
== END 2025-04-25 08:10 | disposition home or self-care (01) ==
LOC: HO.HMGCLDS 08:09
PROVIDERS: PCP Internal Medicine; Visit Provider Internal Medicine
DX: J41.8 Mixed simple and mucopurulent chronic bronchitis (principal); I27.20 Pulmonary hypertension, unspecified; I50.30 Unspecified diastolic (congestive) heart failure; Z79.01 Long term (current) use of anticoagulants; Z79.2 Long term (current) use of antibiotics; Z79.890 Hormone replacement therapy; Z79.899 Other long term (current) drug therapy
CPT/HCPCS: 36415; 80053; 83540; 83880; 85025; 99212

== ENCOUNTER 2025-04-25 08:09 | Outpatient (AMB) | payer MEDICARE, SELFPAY ==
--- NOTE | 2025-04-25 08:15 | A.OFFPC_ITS ---
Vital Signs 04/25/25 08:16 Height 5 ft Weight 112 lb BMI 21.9 BP 120/70 Blood Pressure Location Rt brachial Position Sitting Respiration 20 Pulse 83 Pulse Source Pulse Oximeter Temp 97.9 F Temp Source Oral Pulse Oximetry (%) 90 L Oxygen Delivery Method Nasal Cannula Intake Visit Reasons: Resp infection Intake Note: Pt is here today for a sick visit. Pt c/o cough,congestion for last couple of days. Allergies gemifloxacin Allergy (Unknown, Verified 04/25/25 08:18) Rash montelukast (Singulair) Allergy (Unknown, Verified 04/25/25 08:18) mood swings ARB-Angiotensin Receptor Antagonist Adverse Reaction (Intermediate, Verified 04/25/25 08:18) Cough dapagliflozin (From [facility]) Adverse Reaction (Intermediate, Verified 04/25/25 08:18) polyuria lisinopril Adverse Reaction (Intermediate, Verified 04/25/25 08:18) Cough Medication List - Last Reconciled 04/25/25 by Freida Yarbrough MD acetaminophen 650 mg PO Q6H PRN albuterol sulfate 90 mcg/actuation 2 puffs inhalation QID PRN albuterol sulfate 0.63 mg (3 mL) inhalation Q4-6H PRN apixaban (Eliquis) 5 mg PO BID azelastine 2 sprays intranasal BID azithromycin 250 mg PO 3XW 28 days calcium carbonate (Calcium 600) 600 mg PO BID cetirizine (Zyrtec) 10 mg PO DAILY cholecalciferol (vitamin D3) (Vitamin D3) 50 mcg PO DAILY doxycycline hyclate 100 mg PO BID ferrous sulfate 324 mg PO TUTHSA furosemide 20 mg PO BID levothyroxine 25 mcg PO DAILY@0600 magnesium 400 mg PO BEDTIME multivit with min-folic acid 80 mcg (Centrum Adult 50 Plus) 1 tab PO DAILY omeprazole 20 mg PO DAILY@0630 PRN peg 400-propylene glycol (PF) 0.4-0.3 % (Systane (PF)) 1 drp ophthalmic (eye) BID potassium chloride ER 20 mEq PO DAILY pravastatin 20 mg PO BEDTIME Trelegy Ellipta 200-62.5-25 mcg (rxevppinyld-dnolcgiwt-mqrywtaw) 1 inh inhalation DAILY 30 days NS Tobacco use date assessed: 02/25/25 Fall risk assessment: No Falls in past year Last assessed Fall Risk: 04/25/25 Dental Screening Dental Screen Date: 02/25/25 HPI Resp infection HPI Details Pt c/o worsening sinus and chest congestion, productive cough with green sputum, increasing shortness or breath and wheezing and general fatigue for 3 days. Patient reports increasing requirement for oxygen supplement increasing to 8 L via nasal cannula when ambulating. Patient denies chest pain palpitations fever. For pulmonary hypertension and is awaiting insurance approval for treatment and follows up with pulmonology [facility] Medical History Sinusitis Pulmonary hypertension Chronic respiratory failure Bronchopneumonia Osteoporosis Cardiac pacemaker in situ HTN (hypertension) PAF (paroxysmal atrial fibrillation) COPD (chronic obstructive pulmonary disease) Chronic anticoagulation Renal failure Rhabdomyolysis Pneumonia Hyponatremia Hyperlipemia SSS (sick sinus syndrome) Meniere disease Sleep apnea Surgical History History of permanent cardiac pacemaker placement History of endoscopy History of hysterectomy History of cardiac cath Family History Father Lung cancer Mother COPD (chronic obstructive pulmonary disease) Social History Household Members: Spouse Housing: House Do you presently have visiting nurse or other home services: Yes (VNA and OT) Alcohol intake: never Patient Tobacco Use Status: Former Tobacco user Years Smoked: 30 +/- e-Cigarette/Vaping Use: Never Used Second Hand Smoke Exposure: No Advance Directives Date on File: 02/06/23 service: No Current occupational status: retired Cognitive needs: No Hearing needs: Yes Vision needs: Yes Questionnaire PHQ-9 Over the last 2 weeks, how often have you been bothered by any of the following problems? 1. Little interest or pleasure in doing things: not at all 2. Feeling down, depressed, or hopeless: not at all 3. Trouble falling or staying asleep, or sleeping too much: not at all 4. Feeling tired or having little energy: several days 5. Poor appetite or overeating: not at all 6. Feeling bad about yourself - or that you are a failure or have let yourself or your family down: not at all 7. Trouble concentrating on things, such as reading the newspaper or watching television: not at all 8. Moving or speaking so slowly that other people could have noticed. Or the opposite - being so fidgety or restless that you have been moving around a lot more than usual: not at all 9. Thoughts that you would be better off or of hurting yourself in some way: not at all Total score: 1 Depression Screening Interpretation: Negative Depression Screening Done: Yes Source: Developed by Drs. Jerry Munoz, Karishma Melgar, Joaquin Ariza and colleagues, with an educational gaby from [employer]. Thrive Questionnaire Date Thrive assessed: 11/22/24 I am a: Patient What is your living situation today?: I have a steady place to live Within the past 12 months, did the food you bought not last and you didn't have the money to get more?: Often true Within the past 12 months, did you worry whether your food would run out before you got money to buy more?: I choose not to answer this question Do you have trouble paying for medicines?: I choose not to answer this question Do you have trouble getting transportation to medical appointments?: I choose not to answer this question Do you have trouble paying your heating and electricity bill?: I choose not to answer this question Do you have trouble taking care of your child, family member or friend?: I choose not to answer this question Do you have trouble with day-to-day activities such as bathing, preparing meals, shopping, managing finances, etc.?: I choose not to answer this question Are you currently unemployed and looking for a job?: I choose not to answer this question Are you interested in more education?: I choose not to answer this question Please select the resources that you would like help with: None Currently or been in a relationship where the following occur: I choose not to answer THRIVE Score: 1 YUDELKA-7 AMB Questionnaire YUDELKA-7 Date YUDELKA - 7 assessed: 10/04/24 Feeling nervous, anxious, or on edge: 0 = Not at all Not being able to stop or control worryin = Not at all Worrying too much about different things: 0 = Not at all Trouble relaxin = Not at all Being so restless that it is hard to sit still: 0 = Not at all Becoming easily annoyed or irritable: 0 = Not at all Feeling afraid as if something awful might happen: 0 = Not at all Total YUDELKA-7 score (0-4 normal; 5-9 mild; 10-14 moderate; 15-21 severe): 0 Source: Developed by Drs. Jerry Munoz, Karishma Melgar, Joaquin Ariza and colleagues, with an educational gaby from [employer]. Review of Systems Const All systems reviewed & are unremarkable except as noted in HPI and below ENT Reports no additional complaints Card Reports no additional complaints Resp Reports no additional complaints GI Reports no additional complaints Physical exam (Primary Care) Vital Signs: Last Vital Signs Temp 97.9 F 04/25/25 08:16 Pulse 83 04/25/25 08:16 Resp 20 04/25/25 08:16 BP 120/70 04/25/25 08:16 Pulse Ox 90 L 04/25/25 08:16 Oxygen Delivery Method Nasal Cannula 04/25/25 08:16 BMI result Body Mass Index 21.9 Tobacco/Smoking Status: Tobacco use Status Tobacco use date assessed 02/25/25 04/25/25 08:16 Patient Tobacco Use Status Former Tobacco user 04/25/25 08:16 e-Cigarette/Vaping Use Never Used 04/25/25 08:16 PHQ-9: PHQ-9 Score PHQ-9: Total score 1 04/25/25 08:29 Depression Screening Interpretation: Negative Thrive Assessment: Date of Thrive Assessment Date Thrive assessed 11/22/24 04/25/25 08:16 Currently or been in a relationship where the following occur: I choose not to answer HENMD Head: Yes normal to inspection Ears: TM's normal bilaterally General nose exam: Abnormal mucous membranes and turbinates present erythematous Face and sinus: Yes sinus tenderness Neck Neck: Yes no lymphadenopathy and Yes supple Resp Effort & Inspection: able to speak in complete sentences and Actively coughing Auscultation: rales, rhonchi and diminished lung sounds Cardio Rhythm: regular rhythm Heart sounds: S1 normal heart sound present and S2 normal heart sound present Coding Level of Care Code Est Pt Level 4 (99675) Diagnoses Mixed simple and mucopurulent chronic bronchitis J41.8 COPD type: chronic bronchitis Chronic bronchitis type: mixed simple and mucopurulent (HFpEF) heart failure with preserved ejection fraction I50.30 Pulmonary hypertension I27.20 Assessment & Plan Assessment & Plan (1) COPD (chronic obstructive pulmonary disease): Comment: O2 dependent up to 5 l NC with exertion, on Azithromycin QOD, Extrinsic asthma allergic to cats and dust, tried immunotherapy in the past, montelukast caused mood swings, established with Dr. Tapia Code(s): J44.9 - Chronic obstructive pulmonary disease, unspecified Category: Medical Qualifiers: COPD type: chronic bronchitis Chronic bronchitis type: mixed simple and mucopurulent Qualified Code(s): J41.8 - Mixed simple and mucopurulent chronic bronchitis Plan: For COPD exacerbation prednisone taper and doxycycline prescribed and patient was advised to continue Trelegy with albuterol nebulized as needed, continue supplemental O2 (2) (HFpEF) heart failure with preserved ejection fraction: Comment: Echo 2019 EF 20%, nl coronary cath 2021, Echo 01/2024 increase left ventricle wall thickness, ejection fraction 65%, moderate MR, mild pulmonary hypertension, intolerant to Farxiga (weakness), ACEI discontinued by pulmonology, intolerant to beta edward due to hypotension, Echo 01/2025 EF 65%. mod MR. mild pul HTN, f/u Dr. Coto Code(s): I50.30 - Unspecified diastolic (congestive) heart failure Category: Medical Plan: Increase furosemide to 60 mg for 5 days check labs today including BNP (3) Pulmonary hypertension: Code(s): I27.20 - Pulmonary hypertension, unspecified Category: Medical Plan: Follow-up with pulmonology Orders: Orders Comprehensive Met. Panel Today I27.20 - Pulmonary hypertension, unspecified, I50.30 - Unspecified diastolic (congestive) heart failure, J41.8 - Mixed simple and mucopurulent chronic bronchitis Complete Blood Count Auto Diff Today I27.20 - Pulmonary hypertension, unspecified, I50.30 - Unspecified diastolic (congestive) heart failure, J41.8 - Mixed simple and mucopurulent chronic bronchitis IRON PROFILE Today I27.20 - Pulmonary hypertension, unspecified, I50.30 - Unspecified diastolic (congestive) heart failure, J41.8 - Mixed simple and mucopurulent chronic bronchitis NT Pro B Type Natriuretic Pept Today I27.20 - Pulmonary hypertension, unspecified, I50.30 - Unspecified diastolic (congestive) heart failure, J41.8 - Mixed simple and mucopurulent chronic bronchitis Medications: New prednisone Four tablets p.o. q.d. for 3 days then 3 tablets p.o. q.d. for 3 days then 2 tablets p.o. q.d. for 3 days then 1 tablet p.o. q.d. for 3 days 10 mg PO DAILY 30 tabs 0RF Refilled doxycycline hyclate 100 mg PO BID 20 tabs 0RF
[2025-04-25 08:16] VITALS: BP 120/70; PULSE 83; RESP 20; TEMP 36.6; O2SAT 90; BMI 21.9
--- OUTSIDE RECORDS SUMMARY | 2025-04-25 08:23 | XMS_ITS | Clinical Summary ---
Author Organization [facility] ity Address [address] [place] [address] Care Team Providers Care Heavy Truck Mechanic Name Role Phone Freida Yarbrough MD Primary Care Provider [phone] Surgical History Surgery Date Site/Laterality Comments OTHER SURGICAL HISTORY PROCEDURE: DENIES PREVIOUS SURGERY Medical History Medical History Date Comments Asthma DX:Asthma High blood pressure DX:High bloo d pressure COPD (chronic obstructive pu lmonary disease) ([facility] V24, CMS/HCC V28) [...] 07/02/2022 Hypertension/CHF/CAD Annual BMP Blood Test 07/03/2022 Depression Screening 07/24/2024 COVID-19 Vaccine (1 - 2023-2 5 season) 2025 Influenza Vaccine (#1) 2025 Osteoporosis Screening (Bone [...] Procedure Name Priority Date/Time Associated Diagnosis Comments [facility] DEXA AXIAL SKELETON Routine 07/05/2021 3:14 PM EST Age-related osteoporosis without current pathological fracture from Last 3 Months or Most Recently Relevant to Health Maintenance Results * [facility] DEXA AXIAL SKELETON (07/05/2021 3:14 PM EST) Anatomical Region Laterality Modality Mammography 07/05/2021 10:2 7 AM EST Narrative 07/05/2021 3:14 PM [facility] Diagnostic Imaging Department [address] [place] [address] Patient: AYLIN RAMIREZ Lissette /Age/Sex: 1945 - 76 - F Unit#: [id number] [facility] Ordering Physician: MAYRA CUELLO MD [facility] Dexa Axial Skeleton - 07/05/21 - 1104 [facility] Dexa Axial Skeleton INDICATION: POSTMENOPAUSAL Technique: [...] placing the patient at risk for fracture. [id number] Dictating Physician: YUNG BURNS MD Electronically Signed by: YUNG BURNS MD Dic Date/Time: 07/05/211512 Sign date/Time: 07/05/211513 Procedure Note Yung Burns MD - 07/13/2022 [facility] Diagnostic Imaging Department [address] [place] [address] Patient: AYLIN RAMIREZ Lissette /Age/Sex: 1945 - 76 - F Unit#: [id number] Location/Status: SPDIMAM/REG CLI Mnemonic[facility] Ordering Physician: MAYRA CUELLO MD [facility] Dexa Axial Skeleton - 07/05/21 - 1104 [facility] Dexa Axial Skeleton INDICATION: POSTMENOPAUSAL Technique: [...] osteoporosis, placing the patient at risk forfracture. [id number] Dictating Physician: YUNG BUNRS MD Electronically Signed by: YUNG BURNS MD Dic Date/Time: 07/05/211512 Sign date/Time: 07/05/211513 us Mayra Cuello MD IMG BI PROCEDURES Final Res ult from Last 3 Months or Most Recently Relevant to Health Maintenance Advance Directives Documents on File Type Date Recorded Patient Rubber Calender Helper Expl anation Health Care Decision (hx) 08/29/2012 [...] (hx) 08/29/2012 AD GARDNER DIRECTIVE Care Teams Heavy Truck Mechanic Relationship Specialty Start Date End Date Freida Yarbrough MD PCP - General Internal Medicine 1945
== END 2025-04-25 09:03 | disposition home or self-care (01) ==
LOC: HO.HMCC 08:09
PROVIDERS: PCP Internal Medicine; Visit Provider Internal Medicine
DX: J41.8 Mixed simple and mucopurulent chronic bronchitis (principal); I50.30 Unspecified diastolic (congestive) heart failure; I27.20 Pulmonary hypertension, unspecified

== ENCOUNTER 2025-05-05 09:15 | Outpatient (REF) | payer MEDICARE, SELFPAY ==
[2025-04-29 13:36] VITALS: BP 118/60; BP 90/52; BP 92/48; BMI 25.0
--- OUTSIDE RECORDS SUMMARY | 2025-05-05 09:19 | XMS_ITS | Clinical Summary ---
Author Organization [facility] ity Address [address] [place] [address] Care Team Providers Care Senior Marketing Specialist Name Role Phone Freida Yarbrough MD Primary Care Provider [phone] Surgical History Surgery Date Site/Laterality Comments OTHER SURGICAL HISTORY PROCEDURE: DENIES PREVIOUS SURGERY Medical History Medical History Date Comments Asthma DX:Asthma High blood pressure DX:High bloo d pressure COPD (chronic obstructive pu lmonary disease) ([facility] V24, CMS/HCC V28) DX:COPD (chronic o bstructive pulmonary disease) ([facility]) Historical Medical DX DX:Emphyse figueroa Family [...] Procedure Name Priority Date/Time Associated Diagnosis Comments [facility] DEXA AXIAL SKELETON Routine 07/05/2021 3:14 PM EST Age-related osteoporosis without current pathological fracture from Last 3 Months or Most Recently Relevant to Health Maintenance Results * [facility] DEXA AXIAL SKELETON (07/05/2021 3:14 PM EST) Anatomical Region Laterality Modality Mammography 07/05/2021 10:2 7 AM EST Narrative 07/05/2021 3:14 PM [facility] Diagnostic Imaging Department [address] [place] [address] Patient: AYLIN RAMIREZ Lissette /Age/Sex: 1945 - 76 - F Unit#: [id number] [facility] Ordering Physician: MAYRA CUELLO MD [facility] Dexa Axial Skeleton - 07/05/21 - 1104 [facility] Dexa Axial Skeleton INDICATION: POSTMENOPAUSAL Technique: [...] placing the patient at risk for fracture. [id number] Dictating Physician: YUNG BURNS MD Electronically Signed by: YUNG BURNS MD Dic Date/Time: 07/05/211512 Sign date/Time: 07/05/211513 Procedure Note Yung Burns MD - 07/13/2022 [facility] Diagnostic Imaging Department [address] [place] [address] Patient: AYLIN RAMIREZ Lissette /Age/Sex: 1945 - 76 - F Unit#: [id number] Location/Status: SPDIMAM/REG CLI Mnemonic/[facility] Ordering Physician: MAYRA CUELLO MD [facility] Dexa Axial Skeleton - 07/05/21 - 1104 [facility] Dexa Axial Skeleton INDICATION: POSTMENOPAUSAL Technique: [...] osteoporosis, placing the patient at risk forfracture. [id number] Dictating Physician: YUNG BURNS MD Electronically Signed by: YUNG BURNS MD Dic Date/Time: 07/05/211512 Sign date/Time: 07/05/211513 us Mayra Cuello MD IMG BI PROCEDURES Final Res ult from Last 3 Months or Most Recently Relevant to Health Maintenance Advance Directives Documents on File Type Date Recorded Patient Medical Radiation Tech Expl anation Health Care Decision (hx) 08/29/2012 [...] (hx) 08/29/2012 AD GARDNER DIRECTIVE Care Teams Senior Marketing Specialist Relationship Specialty Start Date End Date Freida Yarbrough MD PCP - General Internal Medicine 1945
[2025-05-05 10:53] LABS: Anion Gap 11 (12-20); Blood Urea Nitrogen 23 mg/dL (9-16); Calcium 9.4 mg/dL (8.4-10.2); Carbon Dioxide 34 mmol/L (22-29); Chloride 98 mmol/L (96-108); Estimated Glomerular Filt Rate > 60; Potassium 4.0 mmol/L (3.3-5.1); Sodium 139 mmol/L (135-145)
== END 2025-05-05 09:16 | disposition home or self-care (01) ==
LOC: HO.HMGCLDS 09:15
PROVIDERS: PCP Internal Medicine; Visit Provider Internal Medicine
DX: I50.30 Unspecified diastolic (congestive) heart failure (principal)
CPT/HCPCS: 36415; 80048

== ENCOUNTER 2025-05-08 12:59 | Outpatient (AMB) | payer MEDICARE, SELFPAY ==
[2025-04-29 13:36] VITALS: BP 118/60; BP 90/52; BP 92/48; BMI 25.0
--- NOTE | 2025-05-08 13:03 | A.OFFVIS_ITS ---
Vital Signs 05/08/25 13:04 Height 5 ft BMI Reason not done Patient refused/unable BP 124/56 L Blood Pressure Location Lt brachial Position Sitting Pulse 61 Pulse Source Pulse Oximeter Pulse Oximetry (%) 92 Oxygen Delivery Method Nasal Cannula Oxygen Flow Rate 6 Intake Visit Reasons: COPD Certified Alcohol And Drug Counselor Required: No Allergies gemifloxacin Allergy (Unknown, Verified 05/08/25 13:08) Rash montelukast (Singulair) Allergy (Unknown, Verified 05/08/25 13:08) mood swings ARB-Angiotensin Receptor Antagonist Adverse Reaction (Intermediate, Verified 05/08/25 13:08) Cough dapagliflozin (From [facility]) Adverse Reaction (Intermediate, Verified 05/08/25 13:08) polyuria lisinopril Adverse Reaction (Intermediate, Verified 05/08/25 13:08) Cough HPI Comments Details: The patient is an 79 year woman no COPD and also heart disease with chronic respiratory failure on oxygen will was already established with the [facility] h[facility] r instructor but now she is looking to transitioning her care to [facility]. The patient already is on adequate therapy for COPD with [facility]. She also uses a portable oxygen concentrator 24 hours a day. She does have a concentrator at home. When she is out and about she does use about 5-6 L pulse and when she is at home she is able to be on the concentrator continuous around 3-4 L. lately though she has been on more oxygen that she has been having more chest congestion and bronchitis. She has had pneumonia in the past. She had a CT scan back in 2022 when she had been the hospital bilateral pneumonia. We did review her CT scan demonstrating emphysematous changes and significant nodular like airspace disease. He has had additional imaging studies but he has been a [place] and we do not have access to those. Her last chest x-ray also was from 2022. We did go for brief walking oximetry the patient did desaturate down to the 70s on her pulse device. Therefore we switched her over to continuous 4 L continues right now and she is going to go get an x-ray. She does have some crackles in the right base suggesting the possibility of bronchopneumonia. Likely worsening her gas exchange she did have a blood gas in the past demonstrating normal pCO2. At some point when she is better were able to check her blood gas again to see if he has any evidence of any chronic hypercapnia. The patient also will provide us with a sputum culture if the antibiotics are not helpful in improving her chest congestion. She already has a nebulizer although she is not using it she is going to restart using it for chest PT and will provide her with an Acapella valve for better mucus clearance and bronchopulmonary hygiene. 01/01/2025 the patient is here for pulmonary follow-up visit. Since we last spoke she has been having worsening respiratory symptoms. She has had to increase her oxygen up to 6 L which is the maximum that her concentrator can provide her at home. When she came in with a portable oxygen concentrator 6 L pulse she was only saturating around 80%. His after walking to the office. We were able to put her on 6 L on the continuous flow in her oxygen did improve to about 95% with some work. She has been using her respiratory therapy has been helpful. Initially Trelegy did make a big difference. We did have her go for a chest x-ray and also blood work. She is on Eliquis although I still checked a D-dimer which was negative. Hemoglobin was stable but her cardiac enzymes were significantly elevated 153 and her brain atretic peptide seem to be higher than her baseline. Therefore likely that she has some congestive heart failure right now. View of the significant elevation of the cardiac enzymes and her comorbidities I did recommend she come to the hospital. I did call the ER to let them know that she was on her way. 03/06/2025 the patient is here for a pulmonary follow-up visit. Since we last spoke the patient did go to the ER for the elevated cardiac enzymes. She ruled out for an ME. She did have Cardiology see her. In the meantime she continues on the oxygen. She does require high oxygen requirements 6 L at rest and 8 L with activity. Will request an Oxymizer pendant for her to have better portability outside of the home. Will go through her [employer] company, [employer]. In addition to that the patient did have blood work demonstrating an elevated eosinophil count. She has COPD with frequent exacerbations and chest congestion. She will be a great candidate for Nucala in order to help decrease her exacerbations in view of her significant respiratory disease. The patient continues on the current respiratory therapy. She does respond well to the azithromycin as well because of the chronic bronchitis. Will go ahead and initiate that as well. Will go ahead and repeat her echocardiogram to assess her pulmonary hypertension since it has been more than a year and if the pressures are elevated will discuss further vasodilators omer therapy. Although I am concerned that with her mitral valve disease and her cor pulmonale she can potentially have worsening affects from the increase blood flow to the left atrium and ventricle. 05/08/2025 the patient is here for pulmonary follow-up visit. She did get the Oxymizer pendant and it she did find helpful but she is still trying to get used to it. She continues use the oxygen with good effect. Recently she did follow- up with her primary care doctor who pressure a crackles on exam. Her brain atretic peptide was significantly elevated and the patient was increase in her Lasix. Her volume status seems to be better. I do not appreciate any crackles. She is going to weigh herself daily and if she does gained 2 lb in 24 hours she is going to take additional Lasix. She has not received the Ohtuvayre at this time. Will requested again. This will hopefully help her COPD. The patient did not qualify for biologics in view of her normal eosinophil count. The patient may have a component of cor pulmonale. Will go ahead and request an echocardiogram. I do believe what is already been scheduled to assess any evidence of any right heart failure and pulmonary hypertension. Again, depending on the mitral valve disease we can consider the possibility of pulmonary vascular vasodilators therapy. Still though we have to be cautious with the fact that if there is significant left ventricular disease or valvular disease then the vasodilators may resulting worsening flash pulmonary edema. [facility] Medical History Sinusitis Pulmonary hypertension Chronic respiratory failure Bronchopneumonia Osteoporosis Cardiac pacemaker in situ HTN (hypertension) PAF (paroxysmal atrial fibrillation) COPD (chronic obstructive pulmonary disease) Chronic anticoagulation Renal failure Rhabdomyolysis Pneumonia Hyponatremia Hyperlipemia SSS (sick sinus syndrome) Meniere disease Sleep apnea Surgical History History of permanent cardiac pacemaker placement History of endoscopy History of hysterectomy History of cardiac cath Family History Father Lung cancer Mother COPD (chronic obstructive pulmonary disease) Social History Household Members: Spouse Housing: House Do you presently have visiting nurse or other home services: Yes (VNA and OT) Alcohol intake: never Patient Tobacco Use Status: Former Tobacco user Years Smoked: 30 +/- e-Cigarette/Vaping Use: Never Used Second Hand Smoke Exposure: No Advance Directives Date on File: 02/06/23 service: No Current occupational status: retired Cognitive needs: No Hearing needs: Yes Vision needs: Yes Review of Systems Const Reports fatigue and Denies fever(s) ENT Denies nasal obstruction Card Denies chest pain, Reports dyspnea and Reports dyspnea on exertion Resp Reports change in phlegm color, Reports chest congestion, Reports cough, Reports dyspnea, Reports dyspnea on exertion and Reports wheezing GI Reports no additional complaints Musc Reports abnormal gait, Reports back pain and Reports myalgias Skin/Breast Denies rash Neuro Reports abnormal gait Endo Reports fatigue Suresh/Lymph Denies easy bleeding Aller/Immun Reports wheezing Physical Exam Vital Signs: Last Vital Signs Pulse 61 05/08/25 13:04 BP 124/56 L 05/08/25 13:04 Pulse Ox 92 05/08/25 13:04 Oxygen Delivery Method Nasal Cannula 05/08/25 13:04 Oxygen Flow Rate 6 05/08/25 13:04 Const General: comfortable and tired appearing HEENT Head: Yes normocephalic Neck Neck: Yes supple Chest Chest palpation & inspection: normal inspection of the chest Resp Effort & Inspection: normal respiratory effort and prolonged expiratory phase Auscultation: rhonchi and diminished lung sounds Cardio Heart sounds: S1 normal heart sound present and S2 normal heart sound present GI Palpation (GI): Soft to palpation Skin General skin exam: no rashes or lesions noted Extrem General: Yes cyanosis Assessment & Plan Assessment & Plan (1) COPD (chronic obstructive pulmonary disease): Comment: O2 dependent up to 5 l NC with exertion, on Azithromycin QOD, Extrinsic asthma allergic to cats and dust, tried immunotherapy in the past, montelukast caused mood swings, established with Dr. Tapia Code(s): J44.9 - Chronic obstructive pulmonary disease, unspecified Category: Medical Qualifiers: COPD type: chronic bronchitis Chronic bronchitis type: mixed simple and mucopurulent Qualified Code(s): J41.8 - Mixed simple and mucopurulent chronic bronchitis (2) Chronic respiratory failure: Code(s): J96.10 - Chronic respiratory failure, unspecified whether with hypoxia or hypercapnia Category: Medical Qualifiers: Respiratory failure complication: hypoxia Qualified Code(s): J96.11 - Chronic respiratory failure with hypoxia (3) Acute on chronic respiratory failure with hypoxia and hypercapnia: Code(s): J96.21 - Acute and chronic respiratory failure with hypoxia; J96.22 - Acute and chronic respiratory failure with hypercapnia Category: Medical (4) Congestive heart failure: Code(s): I50.9 - Heart failure, unspecified Category: Medical Qualifiers: Heart failure chronicity: acute on chronic Heart failure type: systolic Qualified Code(s): I50.23 - Acute on chronic systolic (congestive) heart failure (5) Pulmonary hypertension: Code(s): I27.20 - Pulmonary hypertension, unspecified Category: Medical Plan continue Trelegy ANAIS as needed Nebulizer 2 times aday followed by acapella valve for CPT Oxygen needs 6L/min at rest and 8l/min with activity. The pt carries a poor prognosis. Requesting an oximizer pendent for better portability Ohtuvayre request vasodilators potentially dangerous, awaiting ECHO results Continue oxygen, does not seem to respond well to conserving device F/U 2 months Coding Level of Care Code Est Pt Level 4 (89480) Complex EM visit Add On G2211 Diagnoses Mixed simple and mucopurulent chronic bronchitis J41.8 COPD type: chronic bronchitis Chronic bronchitis type: mixed simple and mucopurulent Chronic respiratory failure with hypoxia J96.11 Respiratory failure complication: hypoxia Acute on chronic respiratory failure with hypoxia and hypercapnia J96.21; J96.22 Acute on chronic systolic congestive heart failure I50.23 Heart failure chronicity: acute on chronic Heart failure type: systolic Pulmonary hypertension I27.20 Time Spent (min) 18
[2025-05-08 13:04] VITALS: BP 124/56; PULSE 61; O2SAT 92
--- OUTSIDE RECORDS SUMMARY | 2025-05-08 16:11 | XMS_ITS | Clinical Summary ---
Author Organization [facility] ity Address [address] [place] [address] Care Team Providers Care Filling Machine Set Up Mechanic Name Role Phone Freida Yarbrough MD Primary Care Provider Surgical History Surgery Date Site/Laterality Comments OTHER SURGICAL HISTORY PROCEDURE: DENIES PREVIOUS SURGERY Medical History Medical History Date Comments Asthma DX:Asthma High blood pressure DX:High bloo d pressure COPD (chronic obstructive pu lmonary disease) ([facility] V24, CMS/HCC V28) DX:COPD (chronic o bstructive pulmonary disease) ([facility]) Historical Medical DX DX:Emphyse figueroa Family History [...] Procedure Name Priority Date/Time Associated Diagnosis Comments [facility] DEXA AXIAL SKELETON Routine 07/05/2021 3:14 PM EST Age-related osteoporosis without current pathological fracture from Last 3 Months or Most Recently Relevant to Health Maintenance Results * [facility] DEXA AXIAL SKELETON (07/05/2021 3:14 PM EST) Anatomical Region Laterality Modality Mammography 07/05/2021 10:2 7 AM EST Narrative 07/05/2021 3:14 PM [facility] Diagnostic Imaging Department [address] [place] [address] Patient: AYLIN RAMIREZ Lissette /Age/Sex: 1945 - 76 - F Unit#: [id number] [facility] Ordering Physician: MAYRA CUELLO MD [facility] Dexa Axial Skeleton - 07/05/21 - 1104 [facility] Dexa Axial Skeleton INDICATION: POSTMENOPAUSAL Technique: [...] placing the patient at risk for fracture. [id number] Dictating Physician: YUNG BURNS MD Electronically Signed by: YUNG BURNS MD Dic Date/Time: 07/05/211512 Sign date/Time: 07/05/211513 Procedure Note Yung Burns MD - 07/13/2022 [facility] Diagnostic Imaging Department [address] [place] [address] Patient: AYLIN RAMIREZ Lissette /Age/Sex: 1945 - 76 - F Unit#: [id number] Location/Status: [facility]AM/REG CLI Mnemonic/[facility] Ordering Physician: MAYRA CUELLO MD [facility] Dexa Axial Skeleton - 07/05/21 - 1104 [facility] Dexa Axial Skeleton INDICATION: POSTMENOPAUSAL Technique: [...] osteoporosis, placing the patient at risk forfracture. [id number] Dictating Physician: YUNG BURNS MD Electronically Signed by: YUNG BURNS MD Dic Date/Time: 07/05/211512 Sign date/Time: 07/05/211513 us Mayra Cuello MD IMG BI PROCEDURES Final Res ult from Last 3 Months or Most Recently Relevant to Health Maintenance Advance Directives Documents on File Type Date Recorded Patient Senior Training Specialist Expl anation Health Care Decision (hx) 08/29/2012 [...] (hx) 08/29/2012 AD GARDNER DIRECTIVE Care Teams Filling Machine Set Up Mechanic Relationship Specialty Start Date End Date Freida Yarbrough MD PCP - General Internal Medicine 1945
== END 2025-05-08 13:53 | disposition home or self-care (01) ==
LOC: HO.HPS 13:00
PROVIDERS: PCP Internal Medicine; Visit Provider Hospitalist
DX: J41.8 Mixed simple and mucopurulent chronic bronchitis (principal); J96.11 Chronic respiratory failure with hypoxia; J96.21 Acute and chronic respiratory failure with hypoxia; J96.22 Acute and chronic respiratory failure with hypercapnia; I50.23 Acute on chronic systolic (congestive) heart failure; I27.20 Pulmonary hypertension, unspecified
CPT/HCPCS: 99214; G2211

== ENCOUNTER → 2025-05-08 12:59 | Outpatient (BNVA) | payer MEDICARE, SELFPAY ==
[2025-04-29 13:36] VITALS: BP 118/60; BP 90/52; BP 92/48; BMI 25.0
== END ==
PROVIDERS: PCP Internal Medicine; Visit Provider Hospitalist
DX: J41.8 Mixed simple and mucopurulent chronic bronchitis (principal); J96.11 Chronic respiratory failure with hypoxia; J96.21 Acute and chronic respiratory failure with hypoxia; J96.22 Acute and chronic respiratory failure with hypercapnia; I11.0 Hypertensive heart disease with heart failure; I50.23 Acute on chronic systolic (congestive) heart failure; I27.20 Pulmonary hypertension, unspecified; Z99.81 Dependence on supplemental oxygen
CPT/HCPCS: 99212

== ENCOUNTER → 2025-05-25 23:59 | Outpatient (BNV) | payer MEDICARE, SELFPAY ==
[2025-04-29 13:36] VITALS: BP 118/60; BP 90/52; BP 92/48; BMI 25.0
--- NOTE | 2025-06-06 21:47 | MHC.OFFVIS ---
Intake Visit Reasons: Remote device check- [facility] Allergies gemifloxacin Allergy (Unknown, Verified 05/08/25 13:08) Rash montelukast (Singulair) Allergy (Unknown, Verified 05/08/25 13:08) mood swings ARB-Angiotensin Receptor Antagonist Adverse Reaction (Intermediate, Verified 05/08/25 13:08) Cough dapagliflozin (From [facility]) Adverse Reaction (Intermediate, Verified 05/08/25 13:08) polyuria lisinopril Adverse Reaction (Intermediate, Verified 05/08/25 13:08) Cough PFS Medical History Sinusitis Pulmonary hypertension Chronic respiratory failure Bronchopneumonia Osteoporosis Cardiac pacemaker in situ HTN (hypertension) PAF (paroxysmal atrial fibrillation) COPD (chronic obstructive pulmonary disease) Chronic anticoagulation Renal failure Rhabdomyolysis Pneumonia Hyponatremia Hyperlipemia SSS (sick sinus syndrome) Meniere disease Sleep apnea Surgical History History of permanent cardiac pacemaker placement History of endoscopy History of hysterectomy History of cardiac cath Family History Father Lung cancer Mother COPD (chronic obstructive pulmonary disease) Social History Household Members: Spouse Housing: House Do you presently have visiting nurse or other home services: Yes (VNA and OT) Alcohol intake: never Patient Tobacco Use Status: Former Tobacco user Years Smoked: 30 +/- e-Cigarette/Vaping Use: Never Used Second Hand Smoke Exposure: No Advance Directives Date on File: 02/06/23 service: No Current occupational status: retired Cognitive needs: No Hearing needs: Yes Vision needs: Yes Office Procedures Cardiac Device Check Cardiac Device Check Details: PPM Good battery life. Multiple episodes of PMT recorded. We will bring the patient to office for device reprogramming. [id number] Cardiac Device Interrogation, pacemaker Procedure code (CPT) selection complete Assessment & Plan Assessment & Plan (1) Cardiac pacemaker in situ: Code(s): Z95.0 - Presence of cardiac pacemaker Category: Medical Plan Coding Level of Care Code Procedure Only Diagnoses Cardiac pacemaker in situ Z95.0 CPT Codes Cardiac Device Check - Cardiac Device 12: [id number] Cardiac Device Interrogation, pacemaker ([id number])
== END ==
PROVIDERS: PCP Internal Medicine; Visit Provider Internal Medicine Cardiovascular Disease
DX: R00.0 Tachycardia, unspecified (principal); Z95.0 Presence of cardiac pacemaker
CPT/HCPCS: 93294

== ENCOUNTER → 2025-05-28 14:12 | Outpatient (REF) | payer MEDICARE, SELFPAY ==
[2025-04-29 13:36] VITALS: BP 118/60; BP 90/52; BP 92/48; BMI 25.0
--- NOTE | 2025-05-28 14:15 | CA_ITS ---
Transthoracic Echocardiogram Patient (Last, First, Middle): Aylin Jauregui L Gender: Female Date of : 1945 Age: 80 Procedure Date: 05/28/2025 Procedure Type: Transthoracic Echocardiogram Location: OP Height: 152. cm Weight: 48.99 kg BSA: 1.43 m2 Heart Rate: 60 bpm BP: 105 / 70 mmHg Senior Director Creative Services: BETSEY Referring MD: Freida Yarbrough MD Shaper Operator: Kelvin Oscar MD Symptoms: I50.30 - Unspecified diastolic (congestive) heart failure Study Quality: Fair, Limited per order ECG Rhythm: Ventriculary paced rhythm Conclusions: - Normal LV ejection fraction of 65-70% with upper limits of normal LV wall thickness Findings Left Ventricle Normal left ventricular size, thickness, and systolic function. The visually estimated ejection fraction is between 65-70%. Prior Study Comparison No significant change compared to prior study dated: 02/20/2024. Measurements 2D Linear Measurements IVSd: 1.03 0.6-0.9/0.6-1.0 cm LVIDd: 4.02 3.9-5.3/4.2-5.9 cm LVIDd Index: 2.81 2.4-3.2/2.2-3.1 cm/m2 LVIDs: 2.00 2.0-3.6 cm LVPWd: 1.11 0.7-1.1 cm LV Mass: 175.53 67-162/88-224 g LV Mass Index: 122.75 43-95/49-115 g/m2 LVOT Diam: 1.80 3.0+(-)1.3 cm 2D Systolic Function EF 4C: 68.60 >55% EF 2C: 68.50 >55% EF BiP: 68.40 >55% LVOT LVOT Pk Shamar: 0.91 LVOT Mn Shamar: 0.55 LVOT VTI: 0.16 LVOT Pk Grad: 3.00 LVOT Mn Grad: 1.00 LVOT Diam: 1.80 LVOT Area: 2.54 Updated in Other Vendor System with Status of Final Kelvin Oscar MD electronically signed on 05/29/2025 9:14:24 AM with status of Final
--- OUTSIDE RECORDS SUMMARY | 2025-05-28 17:21 | XMS_ITS | Clinical Summary ---
Author Organization [facility] ity Address [address] [place] [address] Care Team Providers Care Life Science Research Assistant Name Role Phone Freida Yarbrough MD Primary Care Provider [phone] Surgical History Surgery Date Site/Laterality Comments OTHER SURGICAL HISTORY PROCEDURE: DENIES PREVIOUS SURGERY Medical History Medical History Date Comments Asthma DX:Asthma High blood pressure DX:High bloo d pressure COPD (chronic obstructive pu lmonary disease) ([facility] V24, CMS/HCC V28) DX:COPD (chronic o bstructive pulmonary disease) ([facility]) Historical Medical DX DX:Emphyse figueroa [...] Procedure Name Priority Date/Time Associated Diagnosis Comments [facility] DEXA AXIAL SKELETON Routine 07/05/2021 3:14 PM EST Age-related osteoporosis without current pathological fracture from Last 3 Months or Most Recently Relevant to Health Maintenance Results * [facility] DEXA AXIAL SKELETON (07/05/2021 3:14 PM EST) Anatomical Region Laterality Modality Mammography 07/05/2021 10:2 7 AM EST Narrative 07/05/2021 3:14 PM [facility] Diagnostic Imaging Department [address] [place] [address] Patient: AYLIN RAMIREZ Lissette /Age/Sex: 1945 - 76 - F Unit#: [id number] [facility] Ordering Physician: MAYRA CUELLO MD [facility] Dexa Axial Skeleton - 07/05/21 - 1104 [facility] Dexa Axial Skeleton INDICATION: POSTMENOPAUSAL Technique: Bone [...] placing the patient at risk for fracture. [id number] Dictating Physician: YUNG BURNS MD Electronically Signed by: YUNG BURNS MD Dic Date/Time: 07/05/211512 Sign date/Time: 07/05/211513 Procedure Note Yung Burns MD - 07/13/2022 [facility] Diagnostic Imaging Department [address] [place] [address] Patient: AYLIN RAMIREZ Lissette /Age/Sex: 1945 - 76 - F Unit#: [id number] Location/Status: SPDIMAM/REG CLI Mnemonic[facility] Ordering Physician: MAYRA CUELLO MD [facility] Dexa Axial Skeleton - 07/05/21 - 1104 [facility] Dexa Axial Skeleton INDICATION: POSTMENOPAUSAL Technique: Bone [...] osteoporosis, placing the patient at risk forfracture. [id number] Dictating Physician: YUNG BURNS MD Electronically Signed by: YUNG BURNS MD Dic Date/Time: 07/05/211512 Sign date/Time: 07/05/211513 us Mayra Cuello MD IMG BI PROCEDURES Final Res ult from Last 3 Months or Most Recently Relevant to Health Maintenance Advance Directives Documents on File Type Date Recorded Patient Candy Mixer Expl anation Health Care Decision (hx) 08/29/2012 [...] (hx) 08/29/2012 AD GARDNER DIRECTIVE Care Teams Life Science Research Assistant Relationship Specialty Start Date End Date Freida Yarbrough MD PCP - General Internal Medicine 1945
== END ==
LOC: HO.CARD 14:12
PROVIDERS: PCP Internal Medicine; Visit Provider Internal Medicine
DX: I50.30 Unspecified diastolic (congestive) heart failure (principal)
CPT/HCPCS: 93308

== ENCOUNTER → 2025-05-28 14:15 | Outpatient (BNV) | payer MEDICARE, SELFPAY ==
[2025-04-29 13:36] VITALS: BP 118/60; BP 90/52; BP 92/48; BMI 25.0
== END ==
PROVIDERS: PCP Internal Medicine; Visit Provider Internal Medicine Cardiovascular Disease
DX: I50.30 Unspecified diastolic (congestive) heart failure (principal)
CPT/HCPCS: 93308

== ENCOUNTER 2025-06-30 10:45 | Outpatient (AMB) | payer MEDICARE, SELFPAY ==
[2025-06-09 14:34] VITALS: BP 118/60; BP 90/52; BP 92/48; BMI 25.0
--- NOTE | 2025-06-30 10:47 | A.OFFPC_ITS ---
Vital Signs 06/30/25 10:48 Height 5 ft Weight 107 lb BMI 20.9 BP 114/64 Blood Pressure Location Lt brachial Position Sitting Respiration 20 Pulse 95 Pulse Source Pulse Oximeter Pulse Oximetry (%) 96 Oxygen Delivery Method Nasal Cannula Intake Visit Reasons: 2 month follow up Intake Note: Pt is here today for 2 months follow up visit. Allergies gemifloxacin Allergy (Unknown, Verified 06/30/25 10:48) Rash montelukast (Singulair) Allergy (Unknown, Verified 06/30/25 10:48) mood swings ARB-Angiotensin Receptor Antagonist Adverse Reaction (Intermediate, Verified 06/30/25 10:48) Cough dapagliflozin (From [facility]) Adverse Reaction (Intermediate, Verified 06/30/25 10:48) polyuria lisinopril Adverse Reaction (Intermediate, Verified 06/30/25 10:48) Cough Medication List - Last Reconciled 06/30/25 by Freida Yarbrough MD acetaminophen 650 mg PO Q6H PRN albuterol sulfate 90 mcg/actuation 2 puffs inhalation QID PRN albuterol sulfate 0.63 mg (3 mL) continuous nebulization Q4-6H PRN apixaban (Eliquis) 5 mg PO BID azelastine 2 sprays intranasal BID azithromycin 250 mg PO 3XW 28 days calcium carbonate (Calcium 600) 600 mg PO BID cetirizine (Zyrtec) 10 mg PO DAILY cholecalciferol (vitamin D3) (Vitamin D3) 50 mcg PO DAILY ferrous sulfate 324 mg PO TUTHSA furosemide 20 mg PO BID levothyroxine 25 mcg PO DAILY@0600 magnesium 400 mg PO BEDTIME multivit with min-folic acid 80 mcg (Centrum Adult 50 Plus) 1 tab PO DAILY omeprazole 20 mg PO DAILY@0630 PRN peg 400-propylene glycol (PF) 0.4-0.3 % (Systane (PF)) 1 drp ophthalmic (eye) BID potassium chloride ER 20 mEq PO DAILY pravastatin 20 mg PO BEDTIME prednisone orally daily; 2 tabs daily x 15 days, then 1 tab daily x 5 days 30 days Trelegy Ellipta 200-62.5-25 mcg (qgwutsicugn-tkkixdprf-shztlled) 1 inh inhalation DAILY 90 days NS Tobacco use date assessed: 06/30/25 Fall risk assessment: No Falls in past year Last assessed Fall Risk: 06/30/25 Dental Screening Dental Screen Date: 02/25/25 HPI 2 month follow up HPI Details Patient presents for the follow-up of chronic AFib anticoagulated on Eliquis, O2 dependent COPD recently started on low dose of prednisone by ssis architect waiting on approval for [place], heart failure with preserved ejection fraction and pulmonary hypertension. Patient reports feeling better since started low dose of prednisone. Her O2 saturation on supplemental O2 remains between 92-95. Patient had echocardiogram which evaluated only the left heart which showed normal ejection fraction but there was no evaluation of p ulmonary hypertension or mitral valve regurgitation. [facility] Medical History Mitral regurgitation Sinusitis Pulmonary hypertension Chronic respiratory failure Bronchopneumonia Osteoporosis Cardiac pacemaker in situ COPD (chronic obstructive pulmonary disease) Chronic anticoagulation Renal failure Rhabdomyolysis Pneumonia Hyponatremia Hyperlipemia SSS (sick sinus syndrome) Meniere disease Sleep apnea Surgical History History of permanent cardiac pacemaker placement History of endoscopy History of hysterectomy History of cardiac cath Family History Father Lung cancer Mother COPD (chronic obstructive pulmonary disease) Social History Household Members: Spouse Housing: House Do you presently have visiting nurse or other home services: Yes (VNA and OT) Alcohol intake: never Patient Tobacco Use Status: Former Tobacco user Years Smoked: 30 +/- e-Cigarette/Vaping Use: Never Used Second Hand Smoke Exposure: No Advance Directives Date on File: 02/06/23 service: No Current occupational status: retired Cognitive needs: No Hearing needs: Yes Vision needs: Yes Questionnaire Thrive Questionnaire Date Thrive assessed: 11/22/24 I am a: Patient What is your living situation today?: I have a steady place to live Within the past 12 months, did the food you bought not last and you didn't have the money to get more?: Often true Within the past 12 months, did you worry whether your food would run out before you got money to buy more?: I choose not to answer this question Do you have trouble paying for medicines?: I choose not to answer this question Do you have trouble getting transportation to medical appointments?: I choose not to answer this question Do you have trouble paying your heating and electricity bill?: I choose not to answer this question Do you have trouble taking care of your child, family member or friend?: I choose not to answer this question Do you have trouble with day-to-day activities such as bathing, preparing meals, shopping, managing finances, etc.?: I choose not to answer this question Are you currently unemployed and looking for a job?: I choose not to answer this question Are you interested in more education?: I choose not to answer this question Please select the resources that you would like help with: None Currently or been in a relationship where the following occur: I choose not to answer THRIVE Score: 1 YUDELKA-7 AMB Questionnaire YUDELKA-7 Date YUDELKA - 7 assessed: 10/04/24 Source: Developed by Drs. Jerry Munoz, Karishma Melgar, Joaquin Ariza and colleagues, with an educational gaby from [email or web address]. Review of Systems Const All systems reviewed & are unremarkable except as noted in HPI and below ENT Reports no additional complaints Card Reports no additional complaints Resp Reports no additional complaints GI Reports no additional complaints Reports no additional complaints Physical exam (Primary Care) Vital Signs: Last Vital Signs Pulse 95 06/30/25 10:48 Resp 20 06/30/25 10:48 BP 114/64 06/30/25 10:48 Pulse Ox 96 06/30/25 10:48 Oxygen Delivery Method Nasal Cannula 06/30/25 10:48 BMI result Body Mass Index 20.9 Tobacco/Smoking Status: Tobacco use Status Tobacco use date assessed 06/30/25 06/30/25 10:58 Patient Tobacco Use Status Former Tobacco user 06/30/25 10:48 e-Cigarette/Vaping Use Never Used 06/30/25 10:48 Thrive Assessment: Date of Thrive Assessment Date Thrive assessed 11/22/24 06/30/25 10:48 Currently or been in a relationship where the following occur: I choose not to answer Const General: no acute distress HENMT Head: Yes normal to inspection Neck Neck: Yes supple Resp Effort & Inspection: normal respiratory effort Auscultation: clear to auscultation bilaterally Cardio Rhythm: abnormal rhythm irregularly irregular Heart sounds: S1 normal heart sound present and S2 normal heart sound present GI Palpation (GI): Soft to palpation Percussion: Yes normal to percussion Extrem General: Yes no clubbing, cyanosis or edema Coding Level of Care Code Est Pt Level 4 (05498) Diagnoses Osteoporosis M81.0 (HFpEF) heart failure with preserved ejection fraction I50.30 Pulmonary hypertension I27.20 Mixed simple and mucopurulent chronic bronchitis J41.8 COPD type: chronic bronchitis Chronic bronchitis type: mixed simple and mucopurulent Acute on chronic respiratory failure with hypoxia and hypercapnia J96.21; J96.22 Assessment & Plan Assessment & Plan (1) Osteoporosis: Comment: Reclast inj 2021, 2022 at [facility], DEXA 07/15 IMPROVED, last Reclast 10/14 Code(s): M81.0 - Age-related osteoporosis without current pathological fracture Category: Medical Plan: Obtain DEXA, continue vitamin-D and calcium supplement (2) (HFpEF) heart failure with preserved ejection fraction: Comment: Echo 2019 EF 20%, nl coronary cath 2021, Echo 01/2024 increase left ventricle wall thickness, ejection fraction 65%, moderate MR, mild pulmonary hypertension, intolerant to Farxiga (weakness), ACEI discontinued by pulmonology, intolerant to beta edward due to hypotension, Echo 01/2025 EF 65%. mod MR. mild pul HTN, f/u Dr. Coto Code(s): I50.30 - Unspecified diastolic (congestive) heart failure Category: Medical Plan: Continue current treatment (3) Pulmonary hypertension: Comment: Echo 01/2024 mild pul HTN Code(s): I27.20 - Pulmonary hypertension, unspecified Category: Medical Plan: Obtain echocardiogram to evaluate for pulmonary hypertension and mitral valve regurgitation, continue supplemental O2. (4) COPD (chronic obstructive pulmonary disease): Comment: O2 dependent up to 5 l NC with exertion, on Azithromycin QOD, Extrinsic asthma allergic to cats and dust, tried immunotherapy in the past, montelukast caused mood swings, established with Dr. Tapia Code(s): J44.9 - Chronic obstructive pulmonary disease, unspecified Category: Medical Qualifiers: COPD type: chronic bronchitis Chronic bronchitis type: mixed simple and mucopurulent Qualified Code(s): J41.8 - Mixed simple and mucopurulent chronic bronchitis Plan: Continue current treatment follow-up with pulmonology (5) Acute on chronic respiratory failure with hypoxia and hypercapnia: Code(s): J96.21 - Acute and chronic respiratory failure with hypoxia; J96.22 - Acute and chronic respiratory failure with hypercapnia Category: Medical Plan: Continue supplemental O2, Orders: Orders Comprehensive [place]. Panel Fast 3 Months E55.9 - Vitamin D deficiency, unspecified, I50.30 - Unspecified diastolic (congestive) heart failure, M81.0 - Age-related osteoporosis without current pathological fracture TSH reflex Free T4 3 Months E55.9 - Vitamin D deficiency, unspecified, I50.30 - Unspecified diastolic (congestive) heart failure, M81.0 - Age-related osteoporos is without current pathological fracture Vitamin D 25-OH Total 3 Months E55.9 - Vitamin D deficiency, unspecified CA echo transthoracic complete Today I27.20 - Pulmonary hypertension, unspecified, I34.0 - Nonrheumatic mitral (valve) insufficiency Complete Blood Count Auto Diff 3 Months E55.9 - Vitamin D deficiency, un specified, I50.30 - Unspecified diastolic (congestive) heart failure, M81.0 - Age-related osteoporosis without current pathological fracture IRON PROFILE 3 Months E55.9 - Vitamin D deficiency, unspecified, I50.30 - Unspecified diastolic (congestive) heart failure, M81.0 - Age-related osteoporosis without current pathological fracture XR DEXA axial skeleton Today M81.0 - Age-related osteoporosis without current pathological fracture
[2025-06-30 10:48] VITALS: BP 114/64; PULSE 95; RESP 20; O2SAT 96; BMI 20.9
== END 2025-06-30 11:31 | disposition home or self-care (01) ==
LOC: HO.HMCC 10:46
PROVIDERS: PCP Internal Medicine; Visit Provider Internal Medicine
DX: I50.30 Unspecified diastolic (congestive) heart failure (principal); I27.20 Pulmonary hypertension, unspecified; J41.8 Mixed simple and mucopurulent chronic bronchitis; J96.21 Acute and chronic respiratory failure with hypoxia; J96.22 Acute and chronic respiratory failure with hypercapnia; M81.0 Age-related osteoporosis without current pathological fracture

== ENCOUNTER → 2025-06-30 10:45 | Outpatient (BNVA) | payer MEDICARE, SELFPAY ==
[2025-06-09 14:34] VITALS: BP 118/60; BP 90/52; BP 92/48; BMI 25.0
== END ==
PROVIDERS: PCP Internal Medicine; Visit Provider Internal Medicine
DX: M81.0 Age-related osteoporosis without current pathological fracture (principal); I48.20 Chronic atrial fibrillation, unspecified; I50.30 Unspecified diastolic (congestive) heart failure; I27.20 Pulmonary hypertension, unspecified; J41.8 Mixed simple and mucopurulent chronic bronchitis; J96.21 Acute and chronic respiratory failure with hypoxia; J96.22 Acute and chronic respiratory failure with hypercapnia; Z79.01 Long term (current) use of anticoagulants; Z79.52 Long term (current) use of systemic steroids
CPT/HCPCS: 99212

== ENCOUNTER → 2025-07-02 10:10 | Outpatient (BNV) | payer MEDICARE, SELFPAY ==
[2025-06-09 14:34] VITALS: BP 118/60; BP 90/52; BP 92/48; BMI 25.0
== END ==
PROVIDERS: PCP Internal Medicine; Visit Provider Internal Medicine Cardiovascular Disease
DX: I48.91 Unspecified atrial fibrillation (principal); Z95.0 Presence of cardiac pacemaker
CPT/HCPCS: 93294

== ENCOUNTER 2025-07-18 09:56 | Outpatient (AMB) | payer MEDICARE, SELFPAY ==
[2025-06-09 14:34] VITALS: BP 118/60; BP 90/52; BP 92/48; BMI 25.0
--- OUTSIDE RECORDS SUMMARY | 2025-07-18 09:59 | XMS_ITS | Clinical Summary ---
Author Organization [facility] ity Address [address] [place] [address] Care Team Providers Care Contracting Specialist Name Role Phone Freida Yarbrough MD Primary Care Provider [phone] Surgical History Surgery Date Site/Laterality Comments OTHER SURGICAL HISTORY PROCEDURE: DENIES PREVIOUS SURGERY Medical History Medical History Date Comments Asthma DX:Asthma High blood pressure DX:High bloo d pressure COPD (chronic obstructive pu lmonary disease) ([facility] V24, CMS/HCC V28) DX:COPD (chronic o bstructive pulmonary disease) ([facility]) Historical Medical DX DX:Emphyse figueroa Family History Medical History Relation Name Comments Other: unknown heart condition Father Heart failure Maternal Grandmother Relation Name Status Comments Father Maternal Grandmother Social History Tobacco Use Types Packs/Day Years Used Date Smoking Tobacco: Former Cigarettes 0 Q uit: 07/23/1990 Smokeless Tobacco: Never Alcohol Use Standard Drinks/Week Comments No 0 (1 standard drink = 0.6 oz pur e alcohol) Comments Unknown Sex and Gender Information Value Date Recorded Sex Assigned at Not on file Legal Sex Female 6:04 PM EST Gender Identity Not on file Sexual Orientation Not on file Last Filed Vital Signs Vital Sign Reading [...] 1964 Pneumococcal Vaccine: 50+ Years (1 of 2 - PCV) 1963 Zoster Vaccines (1 of 2) 1994 RSV Immunization Adult Patients (1 - 1-dose 75+ series) 2019 Cholesterol Screening (Lipid Panel) 07/02/2022 Falls Risk Assessment 07/02/2022 Social Influencers of Health Screening 07/02/2022 Hypertension/CHF/CAD Annual BMP Blood Test 07/03/2022 Depression Screening 07/24/2024 COVID-19 Vaccine ( - 2024-2 6 season) 2025 10/28/2021, 05/12/2021, 11/06/2020 Influenza Vaccine (#1) 2025 Osteoporosis Screening (Bone [...] Procedure Name Priority Date/Time Associated Diagnosis Comments [facility] DEXA AXIAL SKELETON Routine 07/05/2021 3:14 PM EST Age-related osteoporosis without current pathological fracture from Last 3 Months or Most Recently Relevant to Health Maintenance Results * [facility] DEXA AXIAL SKELETON (07/05/2021 3:14 PM EST) Anatomical Region Laterality Modality Mammography 07/05/2021 10:2 7 AM EST Narrative 07/05/2021 3:14 PM EST Diagnostic Imaging Department [address] [place] [id number] Patient: AYLIN RAMIREZ Lissette /Age/Sex: 1945 - 76 - F Unit#: [id number] Location/Status: SPDIMAM/REG CLI Mnemonic[facility] Ordering Physician: MAYRA CUELLO MD [facility] Dexa Axial Skeleton - 07/05/21 - 1104 [facility] Dexa Axial Skeleton INDICATION: POSTMENOPAUSAL Technique: [...] placing the patient at risk for fracture. [id number] Dictating Physician: YUNG BURNS MD Electronically Signed by: YUNG BURNS MD Dic Date/Time: 07/05/211512 Sign date/Time: 07/05/211513 Procedure Note Yung Burns MD - 07/13/2022 Diagnostic Imaging Department [address] [place] [address] Patient: AYLIN RAMIREZ Lissette /Age/Sex: 1945 - 76 - F Unit#: [id number] Location/Status: [facility] CLI Mnemonic/Ordering Site: [facility] Ordering Physician: MAYRA CUELLO MD [facility] Dexa Axial Skeleton - 07/05/21 - 1104 [facility] Dexa Axial Skeleton INDICATION: POSTMENOPAUSAL Technique: [...] osteoporosis, placing the patient at risk forfracture. [id number] Dictating Physician: YUNG BURNS MD Electronically Signed by: YUNG BURNS MD Dic Date/Time: 07/05/211512 Sign date/Time: 07/05/211513 us Mayra Cuello MD IMG BI PROCEDURES Final Res ult from Last 3 Months or Most Recently Relevant to Health Maintenance Advance Directives Documents on File Type Date Recorded Patient Consulting Project Director Expl anation Health Care Decision (hx) 08/29/2012 [...] (hx) 08/29/2012 AD GARDNER DIRECTIVE Care Teams Contracting Specialist Relationship Specialty Start Date End Date Freida Yarbrough MD PCP - General Internal Medicine 1945
[2025-07-18 10:00] VITALS: BP 110/60; PULSE 66; O2SAT 90; BMI 21.7
--- NOTE | 2025-07-18 10:00 | MHC.OFFVIS ---
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 Transportation Escort: Transportation Escort offered & declined Accompanied by: Other Relationship Allergies gemifloxacin Allergy (Unknown, Verified 07/18/25 10:06) Rash montelukast (Singulair) Allergy (Unknown, Verified 07/18/25 10:06) mood swings ARB-Angiotensin Receptor Antagonist Adverse Reaction (Intermediate, Verified 07/18/25 10:06) Cough dapagliflozin (From Farga) Adverse Reaction (Intermediate, Verified 07/18/25 10:06) polyuria lisinopril Adverse Reaction (Intermediate, Verified 07/18/25 10:06) Cough HPI Comments Details: The patient is an 80 year woman no COPD and also heart disease with chronic respiratory failure on oxygen will was 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 The patient already is on adequate therapy for COPD with [facility]. She also uses a portable oxygen concentrator 24 hours a day. She does have a concentrator at home. When she is out and about she does use about 5-6 L pulse and when she is at home she is able to be on the concentrator continuous around 3-4 L. lately though she has been on more oxygen that she has been having more chest congestion and bronchitis. She has had pneumonia in the past. She had a CT scan back in 2022 when she had been the hospital bilateral pneumonia. We did review her CT scan demonstrating emphysematous changes and significant nodular like airspace disease. He has had additional imaging studies but he has been a [place] and we do not have access to those. Her last chest x-ray also was from 2022. We did go for brief walking oximetry the patient did desaturate down to the 70s on her pulse device. Therefore we switched her over to continuous 4 L continues right now and she is going to go get an x-ray. She does have some crackles in the right base suggesting the possibility of bronchopneumonia. Likely worsening her gas exchange she did have a blood gas in the past demonstrating normal pCO2. At some point when she is better were able to check her blood gas again to see if he has any evidence of any chronic hypercapnia. The patient also will provide us with a sputum culture if the antibiotics are not helpful in improving her chest congestion. She already has a nebulizer although she is not using it she is going to restart using it for chest PT and will provide her with an Acapella valve for better mucus clearance and bronchopulmonary hygiene. 01/01/2025 the patient is here for pulmonary follow-up visit. Since we last spoke she has been having worsening respiratory symptoms. She has had to increase her oxygen up to 6 L which is the maximum that her concentrator can provide her at home. When she came in with a portable oxygen concentrator 6 L pulse she was only saturating around 80%. His after walking to the office. We were able to put her on 6 L on the continuous flow in her oxygen did improve to about 95% with some work. She has been using her respiratory therapy has been helpful. Initially Trelegy did make a big difference. We did have her go for a chest x-ray and also blood work. She is on Eliquis although I still checked a D-dimer which was negative. Hemoglobin was stable but her cardiac enzymes were significantly elevated 153 and her brain atretic peptide seem to be higher than her baseline. Therefore likely that she has some congestive heart failure right now. View of the significant elevation of the cardiac enzymes and her comorbidities I did recommend she come to the hospital. I did call the ER to let them know that she was on her way. 03/06/2025 the patient is here for a pulmonary follow-up visit. Since we last spoke the patient did go to the ER for the elevated cardiac enzymes. She ruled out for an [place]. She did have Cardiology see her. In the meantime she continues on the oxygen. She does require high oxygen requirements 6 L at rest and 8 L with activity. Will request an Oxymizer pendant for her to have better portability outside of the home. Will go through her [employer] company, [employer]. In addition to that the patient did have blood work demonstrating an elevated eosinophil count. She has COPD with frequent exacerbations and chest congestion. She will be a great candidate for Nucala in order to help decrease her exacerbations in view of her significant respiratory disease. The patient continues on the current respiratory therapy. She does respond well to the azithromycin as well because of the chronic bronchitis. Will go ahead and initiate that as well. Will go ahead and repeat her echocardiogram to assess her pulmonary hypertension since it has been more than a year and if the pressures are elevated will discuss further vasodilators omer therapy. Although I am concerned that with her mitral valve disease and her cor pulmonale she can potentially have worsening affects from the increase blood flow to the left atrium and ventricle. 05/08/2025 the patient is here for pulmonary follow-up visit. She did get the Oxymizer pendant and it she did find helpful but she is still trying to get used to it. She continues use the oxygen with good effect. Recently she did follow-up with her primary care doctor who pressure a crackles on exam. Her brain atretic peptide was significantly elevated and the patient was increase in her Lasix. Her volume status seems to be better. I do not appreciate any crackles. She is going to weigh herself daily and if she does gained 2 lb in 24 hours she is going to take additional Lasix. She has not received the Ohtuvayre at this time. Will requested again. This will hopefully help her COPD. The patient did not qualify for biologics in view of her normal eosinophil count. The patient may have a component of cor pulmonale. Will go ahead and request an echocardiogram. I do believe what is already been scheduled to assess any evidence of any right heart failure and pulmonary hypertension. Again, depending on the mitral valve disease we can consider the possibility of pulmonary vascular vasodilators therapy. Still though we have to be cautious with the fact that if there is significant left ventricular disease or valvular disease then the vasodilators may resulting worsening flash pulmonary edema. 07/18/2025 the patient is here for pulmonary follow-up visit. She continues to struggle with her breathing. She is up to 8 L continuously. Getting irritation to the nose very dry. Will request that [employer] delivers a humidifier for her concentrator. This will help. In the meantime she does have some ulcerations of the nose. Will try some Bactroban ointment. She could not get the Ohtuvayre was too expensive. We are still waiting to see if she ultimately will be able to get it through financial help. In the meantime they concerning for underlying pulmonary hypertension resulting in significant pulmonary vascular disease. We did talk about considering vasodilators. At this point will go ahead and order the sildenafil. She can started very soon the mall dose to see how she tolerates it. Hopefully she can not tolerate it we can stabilize her respiratory disease. She also had been on the prednisone. The also was helpful. Will continue to slowly taper it down to 5 mg every other day. She will continue with the oxygen. Hopefully she can hear from [employer] for the water humidification. The patient follow-up in a couple months if any issues she can always call further recommendations. [facility] [place] Medical History Mitral regurgitation Sinusitis Pulmonary hypertension Chronic respiratory failure Bronchopneumonia Osteoporosis Cardiac pacemaker in situ COPD (chronic obstructive pulmonary disease) Chronic anticoagulation Renal failure Rhabdomyolysis Pneumonia Hyponatremia Hyperlipemia SSS (sick sinus syndrome) Meniere disease Sleep apnea Surgical History History of permanent cardiac pacemaker placement History of endoscopy History of hysterectomy History of cardiac cath Family History Father Lung cancer Mother COPD (chronic obstructive pulmonary disease) Social History Household Members: Spouse Housing: House Do you presently have visiting nurse or other home services: Yes (VNA and OT) Alcohol intake: never Patient Tobacco Use Status: Former Tobacco user Years Smoked: 30 +/- e-Cigarette/Vaping Use: Never Used Second Hand Smoke Exposure: No Advance Directives Date on File: 02/06/23 service: No Current occupational status: retired Cognitive needs: No Hearing needs: Yes Vision needs: Yes Review of Systems Const Reports fatigue and Denies fever(s) ENT Denies nasal obstruction Card Denies chest pain, Reports dyspnea and Reports dyspnea on exertion Resp Reports chest congestion, Reports cough, Reports dyspnea, Reports dyspnea on exertion and Reports wheezing GI Reports no additional complaints Musc Reports abnormal gait, Reports back pain and Reports myalgias Skin/Breast Denies rash Neuro Reports abnormal gait Endo Reports fatigue Suresh/Lymph Denies easy bleeding Aller/Immun Reports wheezing Physical Exam Vital Signs: Last Vital Signs Pulse 66 07/18/25 10:00 BP 110/60 07/18/25 10:00 Pulse Ox 90 L 07/18/25 10:00 Oxygen Delivery Method Nasal Cannula 07/18/25 10:00 Oxygen Flow Rate 8 07/18/25 10:00 BMI result Body Mass Index 21.7 Const General: comfortable and tired appearing HEENT Head: Yes normocephalic Neck Neck: Yes supple Chest Chest palpation & inspection: normal inspection of the chest Resp Effort & Inspection: normal respiratory effort and prolonged expiratory phase Auscultation: no rhonchi and diminished lung sounds Cardio Heart sounds: S1 normal heart sound present and S2 normal heart sound present GI Palpation (GI): Soft to palpation Skin General skin exam: no rashes or lesions noted Extrem General: Yes cyanosis Assessment & Plan Assessment & Plan (1) COPD (chronic obstructive pulmonary disease): Comment: O2 dependent up to 5 l NC with exertion, on Azithromycin QOD, Extrinsic asthma allergic to cats and dust, tried immunotherapy in the past, montelukast caused mood swings, established with Dr. Tapia Code(s): J44.9 - Chronic obstructive pulmonary disease, unspecified Category: Medical Qualifiers: COPD type: chronic bronchitis Chronic bronchitis type: mixed simple and mucopurulent Qualified Code(s): J41.8 - Mixed simple and mucopurulent chronic bronchitis (2) Chronic respiratory failure: Code(s): J96.10 - Chronic respiratory failure, unspecified whether with hypoxia or hypercapnia Category: Medical Qualifiers: Respiratory failure complication: hypoxia Qualified Code(s): J96.11 - Chronic respiratory failure with hypoxia (3) Congestive heart failure: Code(s): I50.9 - Heart failure, unspecified Category: Medical Qualifiers: Heart failure chronicity: acute on chronic Heart failure type: systolic Qualified Code(s): I50.23 - Acute on chronic systolic (congestive) heart failure (4) Pulmonary hypertension: Comment: Echo 01/2024 mild pul HTN Code(s): I27.20 - Pulmonary hypertension, unspecified Category: Medical Plan continue Trelegy ANAIS as needed continue low dose Prednisone Nebulizer 2 times aday followed by acapella valve for CPT Oxygen needs 6L/min at rest and 8l/min with activity. The pt carries a poor prognosis. Requesting an oximizer pendent for better portability Ohtuvayre requested start Low dose Sildanefil 10mg for pulmonary HTN Continue oxygen to maintain 6-8L/min to keep pox>87% bactroban for nasal inflammation F/U 2 months Medications: New sildenafil (pulm.hypertension) administer doses at least 4-6 hours apart 20 mg PO TID 90 tabs 3RF 30 days I27.20 - Pulmonary hypertension, unspecified prednisone 5 mg PO DAILY 30 tabs 11RF 30 days mupirocin 2% (Centany) 1 appl topical BID 22 grams 0RF 7 days Coding Level of Care Code Est Pt Level 5 (52623) Diagnoses Mixed simple and mucopurulent chronic bronchitis J41.8 COPD type: chronic bronchitis Chronic bronchitis type: mixed simple and mucopurulent Chronic respiratory failure with hypoxia J96.11 Respiratory failure complication: hypoxia Acute on chronic systolic congestive heart failure I50.23 Heart failure chronicity: acute on chronic Heart failure type: systolic Pulmonary hypertension I27.20 Time Spent (min) 45
== END 2025-07-18 10:34 | disposition home or self-care (01) ==
LOC: HO.HPS 09:56
PROVIDERS: PCP Internal Medicine; Visit Provider Hospitalist
DX: J41.8 Mixed simple and mucopurulent chronic bronchitis (principal); J96.11 Chronic respiratory failure with hypoxia; I50.23 Acute on chronic systolic (congestive) heart failure; I27.20 Pulmonary hypertension, unspecified
CPT/HCPCS: 99215

== ENCOUNTER → 2025-07-18 09:56 | Outpatient (BNVA) | payer MEDICARE, SELFPAY ==
[2025-06-09 14:34] VITALS: BP 118/60; BP 90/52; BP 92/48; BMI 25.0
== END ==
PROVIDERS: PCP Internal Medicine; Visit Provider Hospitalist
DX: J41.8 Mixed simple and mucopurulent chronic bronchitis (principal); J96.11 Chronic respiratory failure with hypoxia; I50.23 Acute on chronic systolic (congestive) heart failure; I27.20 Pulmonary hypertension, unspecified; Z79.52 Long term (current) use of systemic steroids; Z79.899 Other long term (current) drug therapy; Z87.891 Personal history of nicotine dependence
CPT/HCPCS: 99212